=== PATIENT | female | born 1965 | race African-American/Black ===

== ENCOUNTER 2019-12-13 15:23 | Emergency (ER) | payer MEDICARE ==
[~2019-12-13] VITALS: Ht 165.1 cm; Wt 83.0 kg
--- OUTSIDE RECORDS SUMMARY | 2019-12-13 15:25 | XMS REPORT | Continuity of Care Document ---
Author Author [facility] t Organization 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 Role Phone UNKNOWN, REFFERING PCP Unavailable Vince SINGH, [facility] Attphys Jeremias Harris MD Attphys ALANA MOJICA M.D., Randi WARNER Attphys Unavailable ALANA MOJICA M.D., ALANA Admphyemerita monte Payers Payer Name Policy Type Policy Number Effective Date Expiration Date S ource UHC MEDICAREUHC DUAL COMPLETE [id number]-PresentHMO xxxxxxxxx 2018 00:00:00 Trenary Sabianism MEDICAIDMEDICAIDxxxxxxxxx2018-PresentMedicaid xxxxxxxxx 2018 00:00:00 Alvino Rosenbaum Problems Condition Name Condition Details Condition Category Status Onset Date Resolution Date Last Treatment Date Treating Clinician Comments Source Transient cerebral ischemia Transient cerebral ischemia Disease Active 2018-01-31 00:00:00 Alvino Salcedoist Allergies, Adverse Reactions, Alerts Allergy Name Allergy Type Status Severity Reaction(s) Onset Date Inacti ve Date Treating Clinician Comments Source Sulfa (Sulfonamide Antibiotics) Propensity to adverse reactions to drug Active 2018-01-31 00:00:00 Brendan brad Sabianism Sulfa (Sulfonamide Antibiotics) DA Active SC 2016-06-12 00 :00:00 [facility] aspirin DA Active SC 2016-06-12 00:00:00 [facility] Social History Social Habit Start Date Stop Date Quantity Comments Source Sex Assigned At Bruno Rosenbaum Exposure to SARS-CoV-2 (event) Not sure Alvino Rosenbaum Cigarettes smoked current (pack per day) - Reported 00:00:00 2018-12-14 00:00:00 Alvino Rosenbaum Alcohol intake 2018-12-14 00:00:00 2018-12-14 00:00:00 Current non-drinker of alcohol (finding) Alvino Rosenbaum Smoking Status Start Date Stop Date Source Current every day smoker 2018-12-14 00:00:00 Bruno Rosenbaum Medications Ordered Medication Name Filled Medication Name Start Date Stop Da te Current Medication? Ordering Clinician Indication Dosage Frequency Signature (SIG) Comments Components Source dicyclomine (BENTYL) 20 mg tablet 2018-12-15 00:00:00 2018 23:59:00 No 20mg Q.5D Take 1 tablet (2 0 mg total) by mouth 2 (two) times a day for 30 days. Alvino Rosenbaum Al hyd-Mg tr-alg ac-sod bicarb (GAVISCON) 80-14.2 mg tablet, chewable 2018-12-15 00:00:00 2019-01-14 23:59:00 No 2{tbl} Q.[id number] Chew 2 tablets 3 (three) times a day as needed (abdominal pain) for up to 30 days. Alvino Rosenbaum ondansetron ODT (ZOFRAN ODT) 4 MG disintegrating tablet 2018-12-15 00:00:00 2019-01-14 23:59:00 No 4mg Q8H Take 1 tablet (4 mg total) by mouth every 8 (eight) hours as needed for nausea for up to 30 days. Alvino Rosenbaum naproxen (NAPROSYN) 375 MG tablet 2018-12-15 00:00:00 2018 23:59:00 No 375mg Q.5D Take 1 tablet (3 75 mg total) by mouth 2 (two) times a day with meals for 30 days. Alivno Rosenbaum acetaminophen-codeine (TYLENOL WITH CODEINE #3) 300-30 mg pe r tablet 2018-12-15 00:00:00 2018-12-20 23:59:00 No 1{tbl} Q6H Take 1-2 tablets by mouth every 6 (six) hours as needed for moderate pain for up to 5 days. Alvino Rosenbaum folic acid (FOLVITE) 1 MG tablet 2018-02-01 19:38:38 Yes 1mg QD Take 1 mg by mouth daily. Alvino Rosenbaum gabapentin (NEURONTIN) 300 mg capsule 2018-02-01 19:38:38 Yes 300mg Q.5D Take 300 mg by mouth 2 (two) times a day. Alvino Rosenbaum hydroCHLOROthiazide (MICROZIDE) 12.5 mg capsule 2018-02-01 19:38 :38 Yes 12.5mg QD Take 12.5 mg by mouth every morning. Alvino Rosenbaum HYDROcodone-acetaminophen (NORCO) 10-325 mg per tablet 2018-02-01 19:38:38 Yes 1{tbl} Q6H Take 1 tablet b y mouth every 6 (six) hours as needed for moderate pain. Alvino Rosenbaum zolpidem (AMBIEN) 10 mg tablet 2018-02-01 19:38:38 Yes 10mg QD Take 10 mg by mouth nightly as needed for sleep. Alvino Rosenbaum omeprazole (PriLOSEC) 40 MG capsule 2018-02-01 19:38:38 Yes 40mg QD Take 40 mg by mouth daily. Alvino Rosenbaum riFAMpin (RIFADIN) 300 MG capsule 2018-02-01 19:38:38 Ye s 300mg Q.[id number] Take 300 mg by mouth 3 (three) times a week. Alvino Rosenbaum ethambutol (MYAMBUTOL) 400 MG tablet 2018-02-01 19:38:38 Yes 400mg Q.8466372868290011757T Take 400 mg by mouth 3 (three) times a week. Alvino Rosenbaum azithromycin (ZITHROMAX) 250 MG tablet 2018-02-01 19:38:38 Yes 250mg Q.5017000362341034697H Take 250 mg by mouth 3 (three) times a w [place]. Take 2 tablets the first day, then 1 tablet daily for 4 days. Alvino Salcedoist Vital Signs Vital Name Observation Time Observation Value Comments Source Systolic blood pressure 2018-12-15 03:47:00 141 mm[Hg] Alvino Rosenbaum Diastolic blood pressure 2018-12-15 03:47:00 82 mm[Hg] Alvnio Rosenbaum Heart rate 2018-12-15 03:47:00 73 /min Alvino Rosenbaum Respiratory rate 2018-12-15 03:47:00 16 /min Hubert gomez Sabianism Oxygen saturation in Arterial blood by Pulse oximetry 12-15 01:44:00 98 /min Alvino Rosenbaum Body temperature 2018-12-14 23:29:00 36.39 Yeni Hubert Rosenbaum Body height 2018-12-14 23:29:00 165.1 cm Alvino Rosenbaum Body weight 2018-12-14 23:29:00 83.915 kg Alvino Rosenbaum BMI 2018-12-14 23:29:00 30.79 kg/m2 Alvino Rosenbaum Procedures Procedure Date / Time Performed Performing Clinician Sourc e US GALLBLADDER 2018-12-15 02:43:[address] Jerem[address] ABDOMEN PELVIS W CONTRAST 2018-12-15 01:40:12 Jeremias Harris GRAM STAIN 2018-12-15 00:40:00 Jeremias Harris Meth odjason URINE CULTURE 2018-12-15 00:40:00 Jeremias Harris Meth rogers URINALYSIS SCREEN AND MICROSCOPY, WITH REFLEX TO CULTURE 201 03-14-09 00:32:00 Jeremias Harris HCG QUALITATIVE, URINE SCREEN 2018-12-15 00:32:00 Jeremias Harris XR CHEST 1 VW PORTABLE 2018-12-15 00:10:36 Jeremias Harris BASIC METABOLIC PANEL 2018-12-14 23:58:00 Jeremias Harris n Sabianism HC COMPLETE BLD COUNT W/AUTO DIFF 2018-12-14 23:58:00 Kingsley Harris TYPE AND SCREEN 2018-12-14 23:58:00 Jeremias Harris PROTHROMBIN TIME WITH INR 2018-12-14 23:58:00 Jeremias Harris PARTIAL THROMBOPLASTIN TIME (PTT) 2018-12-14 23:58:00 Kingsley Harris HEPATIC FUNCTION PANEL 2018-12-14 23:58:00 Harris, [place] on [facility] LIPASE LEVEL 2018-12-14 23:58:00 Jeremias Harris Alvino Meth odist TROPONIN 2018-12-14 23:58:00 Jeremias Harris Alvino Meth odist ESTIMATED GFR 2018-12-14 23:58:00 Jeremias Harris Alvino Meth odist Plan of Care Planned Activity Planned Date Details Comments Source Future Scheduled Test 2020-02-07 00:00:00 INFLUENZA VACCINE [code = INFLUENZA VACCINE] [facility] Future Scheduled Test 2014 00:00:00 BREAST CANCER SCRE ENING [code = BREAST CANCER SCREENING] [facility] Future Scheduled Test 2014 00:00:00 COLONOSCOPY SCREEN ING [code = COLONOSCOPY SCREENING] [facility] Future Scheduled Test 2014 00:00:00 SHINGLES VACCINES (#1) [code = SHINGLES VACCINES (#1)] [facility] Future Scheduled Test 1985 00:00:00 Screening for naga gnant neoplasm of cervix (procedure) [code = 893778526] [facility] Encounters Start Date/Time End Date/Time Encounter Type Admission Type Att[facility] Care Department Encounter ID Source 2019-11-28 10:06:52 2019-11-28 13:12:35 Office Visit Ovidio Clarke [facility] [id number] Results Test Description Test Time Test Comments Results Result Comments Source Urine culture 2018-12-16 08:42:45 Test Item Urine culture isolate (test code = 36626-7) Mixed jennifer <=10-3 col/ cc Specimen InformationSpecimen Source: UrineSpecimen Site: [facility] [id number] 08:42:45Gram stain resultFew WBC'sOccasional Gram variable rods Comment: Specimen InformationSpecimen Source: UrineSpecimen Site: Clean catch [facility] SabianismUS [id number] 02:46:33Hm Interface, Radiology Results 12/15/2018 2:49 AM CDTEXAMINATION: US GALLBLADDERCLINICAL HISTORY: ; eval choleCOMPARISON: None.IMPRESSION:No gallstones, sludge, wall thickening, or pericholecystic fluid.The common bile duct measures 0.39 cm, within normal limits.Main portal vein measures 1.2 cm and demonstrates expected hepatopedal flow.[facility]-[id number] MethodistType and tmgqdp9266-10-53 01:49:00* Test Item Value Reference Range Interpretation Comments ABO grouping (test code = 883-9) O Rh type (test code = 07098-2) POS Antibody screen (gel) (test code = 890-4) NEG Trenary MethodistCT Abdomen Pelvis W [id number] 01:44:43Hm Interface, Radiology Results - 12/15/2018 1:47 AM CDTCT ABDOMEN PELVIS W CONTRASTCLINICAL INDICATION: diffuse abd painTECHNIQUE: Multidetector CT of the abdomen and pelvis was performed following intravenous administration of iodinated contrast with multiplanar reformats.CT scans are performed using radia tion dose reduction techniques (iterative reconstruction and/or automated exposu re control). Technical factors are evaluated and adjusted to ensure appropriate moderation of exposure. Automated dose management technology is applied to adjus t radiation exposure while achieving a diagnostic quality image.COMPARISON: Non e. FINDINGS:Lung bases: Basilar subsegmental atelectasis/scarring.Liver: Any l.Gallbladder and biliary: Gallbladder is unremarkable. Common bile duct is not dilated. Pancreas: Normal.Spleen: Normal.Gastrointestinal: Sigmoid diverticul osis. Large and small bowel are normal in caliber. Appendix is visualized and ap pears normal.Adrenals: Normal. Kidneys and ureters: Few bilateral subcentimeter renal cysts/hypodensities are overall too small to characterize though are like ly benign. [No follow-up recommended unless clinically warranted.] No mass or h ydronephrosis.Urinary bladder: Normal.Lymph nodes: No enlarged lymph nodes in the abdomen or pelvis.Peritoneum: No ascites or free air.Vascular: Unremarkabl e.Reproductive organs: Uterus is absent. Unremarkable adnexae.Abdominal wall: Unremarkable.Bones: Status post right hip arthroplasty. Heterotopic ossificatio n about the right hip joint.IMPRESSION:1. Negative CT for acute pathology within the abdomen and pelvis. 2. Sigmoid diverticulosis without diverticulitis.[facility]-2U [id number] MethodistBasic metabolic obget6829-81-61 01:16:05* Test Item Value Reference Range Interpretation Comments Sodium (test code = 2951-2) 140 135- 150 mEq/L Potassium (test code = 2823-3) 3.9 3.5- 5.0 mEq/L Chloride (test code = 2075-0) 104 98- 112 mEq/L CO2 (test code = 2027-9) 24 mmol/L 24-31 Anion gap (test code = 04289-0) 12@ANIO 7- 15 mEq/L BUN (test code = 3094-0) 13 mg/dL 7-18 Creatinine (test code = 2160-0) 0.80 mg/dL 0.5-0.9 Glucose (test code = 2345-7) 107 mg/dL 65-100 H Calcium (test code = 37844-1) 9.7 mg/dL 8.3-10.2 Lab Interpretation (test code = 29628-6) Abnormal Trenary MethodistHepatic function fvanp9314-87-18 01:16:05* Test Item Value Reference Range Interpretation Comments Albumin (test code = 1751-7) 4.0 g/dL 3.5-5 Total bilirubin (test code = 1974-2) <0.3 0.2-1.2 Bilirubin direct (test code = 1967-7) <0.2 0-0.4 Alkaline phosphatase (test code = 6768-6) 105 U/L 0-104 H Protein (test code = 2885-2) 8.1 g/dL 6.3-8.3 ALT (test code = 1742-6) 9 U/L 5-50 AST (test code = 1920-8) 19 U/L 10-35 Lab Interpretation (test code = 21053-7) Abnormal Trenary MethodistLipase ftjhz9817-93-86 01:16:05* Test Item Value Reference Range Interpretation Comments Lipase (test code = 3040-3) 29 U/L 13-60 Trenary MethodistEstimated [id number] 01:16:05* Test Item Value Reference Range Interpretation Comments Estimated GFR (test code = 5488) >=90 mL/min/1.73 m2 Catergory Units InterpretationG1 >=90 Normal or highG2 60-89 Mildly tmbzloedzW9v 45-59 Mildly to moderately anmpxvvzaS1u 30-44 Moderately to severely decreasedG4 15-29 Severely decreasedG5 <15 Kidney failureThe eGFR was calculated using the Chronic Kidney Disease Epidemiology Collaboration (CKD-EPI) equation. Interpretation is based on recommendations of the National Kidney Foundation-Kidney Disease Outcomes Quality Initiative (NKF-KDOQI) published in 2014. Alvino RosenbaumEfiyzkvzhTxsxydzh6190-72-62 00:42:38* Test Item Value Reference Range Interpretation Comments Troponin (test code = 79456-6) <0.006 0-0.04 [facility] changed methodology effective: 11/12/2018 at 10:00 amThe new method has a 99th percentile cutoff of 0.040 ng/mL [facility] with platelet and jluzxoacgqmp7460-55-07 00:41:10* Test Item Value Reference Range Interpretation Comments WBC (test code = 99541-8) 9.4 4.2- 11.0 k/uL RBC (test code = 48566-0) 3.99 m/uL 4.04-5.86 L HGB (test code = 718-7) 13.3 g/dL 11.5-15.3 HCT (test code = 4544-3) 42.4 % 34-45 MCV (test code = 787-2) 106.3 fL 80-98 H MCH (test code = 785-6) 33.3 pg 27-34 MCHC (test code = 786-4) 31.4 g/dL 31.5-36.5 L RDW - SD (test code = 47767-8) 55.9 fL 37-51 H MPV (test code = 58993-3) 10.2 fL 7.4-10.4 Platelet count (test code = 19416-1) 310 150- 400 k/uL Nucleated RBC (test code = 96428-3) 0.00 /100 WBC Neutrophils (test code = 56785-7) 53.7 % 36-66 Lymphocytes (test code = 24574-1) 34.5 % 24-44 Monocytes (test code = 25367-5) 7.3 % 0-6 H Eosinophils (test code = 59900-2) 3.9 % 0-6 Basophils (test code = 04026-1) 0.4 % 0-1.2 Immature granulocytes (test code = 25442-1) 0.2 % 0-1 Lab Interpretation (test code = 13658-4) Abnormal Alvino MethodistUrinalysis screen and microscopy, with reflex to culture 2018-12-15 00:40:40* Test Item Value Reference Range Interpretation Comments Specimen site (test code = 6896184) Clean catch Color, UA (test code = 5778-6) Yellow Appearance, UA (test code = 5767-9) Clear Specific gravity, UA (test code = 5811-5) 1.012 1.001-1.035 pH, UA (test code = 5803-2) 6.0 5.0-8.5 Protein, UA (test code = 44761-6) Negative Negative Glucose, UA (test code = 86452-5) Negative Negative Ketones, UA (test code = 2514-8) Negative Negative Bilirubin, UA (test code = 5770-3) Negative Negative Blood, UA (test code = 5794-3) Small Negative A Nitrite, UA (test code = 5802-4) Negative Negative Urobilinogen, UA (test code = 89011-2) Negative <2.0 Leukocyte esterase, UA (test code = 5799-2) Trace Negative A Epithelial cells, UA (test code = 5787-7) Few /HPF WBC, UA (test code = 5821-4) 3 0- 5 /HPF RBC, UA (test code = 10490-6) 16 0- 5 /HPF H Bacteria, UA (test code = 61303-0) Trace None seen Yeast, UA (test code = 43824-6) None seen Yeast with pseudohyphae, UA (test code = 82265-9) None seen Lab Interpretation (test code = 02469-2) Abnormal Alvino MethodjasonhCG qualitative, urine eftash7466-16-12 00:39:02* Test Item Value Reference Range Interpretation Comments hCG qualitative, urine (test code = 2106-3) Negative Negative The manufacturers stated sensitivity of HcG test for serum is >/= 10 mIU/ml and urine is >/= 20mIU/ml. Alvino RosenbaumProthrombin time with [id number] 00:36:35* Test Item Value Reference Range Interpretation Comments Prothrombin time (test code = 5902-2) 12.9 11.5- 14.5 sec INR (test code = 35773-3) 1.00 Fo r patients on anticoagulant therapy, reference ranges below:Indication: INR ValueTreatment of Venous Thrombosis, 2.0-3.0pulmonary emboli, or prophylaxisof a venous thrombosis, or systemic emboli.High dose, high risk patients 3.0-4.5with mechanical valves.NOTE: INR values over 3.0 are sometimes associated withgastrointestinal hemorrhage, especially values over 4.0. Trenary MethodistPartial thromboplastin time, ofilvnudr3498-05-79 00:36:35* Test Item Value Reference Range Interpretation Comments PTT (test code = 3173-2) 36.6 23.0- 36.0 sec H P TT therapeutic range for unfractionated heparin is61.0-112.0 seconds which corresponds to Anti-Xa0.3-0.7 U/ml.Note: Change in Panic ValueThe PTT Panic Value is changing from 110 sec. to 100 sec. due to new instrumentation and reagents.Correlation studies have been performed to validate this result. Lab Interpretation (test code = 14144-4) Abnormal Trenary MethodistXR Chest 1 Vw Eqsldimm5708-33-49 00:15:54Hm Interface, Radiology Results - 12/15/2018 12:19 AM CDTEXAMINATION: XR CHEST 1 VW PORTABLECLINICAL HISTORY: SOBCOMPARISON: 01/31/2018 chest x-ray.IMPRESSION:The lungs are clear. No pleural effusion or pneumothorax. The cardiomediastinal silhouette is normal.No acute osseous abnormalities.[facility]-1NO3362C6IIwmetgw MethodistCT PELVIS W/O TEWA4593-01-00 07:09:[address] [address]JOYPNKHAIK IMAGING REPORTPatient Name: Fabiola TINOCO of Service: [id number]: 51 Sex: F Order #: [id number] [facility] 1965 [facility] Number: [id number] Record Number: [id number] Hospital Number: [id number] Physician: MELODIE BYRDOrdering Physician: KINDRA COSTA pelvis.History: Knee pain. Hip pain.Technique: Unenhanced CT images. This CT exam was performed using one ormore of the following dose reduction techniques: Automated exposurecontrol, adjustment of the MA and/or KV according to patient size or use ofiterative reconstruction technique.FindingsThere is right total hip arthroplasty. There is deviation laterally to theacetabular cup.There is dislocation.There is no fracture.There is SI joint fusion noted.Impression:Possible displaced plastic insert versus arthroplastic asymmetric wearingof the arthroplastic components. Correlate clini law.Electronically Signed By: Shemar Mccauley M.D., 09/02/2017 7:06 AMLegall y authenticated by RICARDO Pressley 2017-09-02 07:06:55KNEE 4 [id number] 16:00:00[place] [id number] IMAGING REPORTPatient Name: Fabiola TINOCO of Service: [id number]: 51 Sex: F Order #: [id number] Room: [facility]: 1965 X- Ray Number: [id number] Record Number: [id number] Hospital Number: [id number] Physician: Neetu BYRD Physician: Terry COSTA, right hip. Right knee.History: Pain.Technique: AP pelvis projection, extension right hip view, 4 views of theright knee.Findings:The pelvis appears intact. Several of the images show the femoral componentbe well seated within the acetabular component. The AP projection suggestsslight superior and lateral subluxation.The right knee joint is intact. There is no fracture or bony malalignmentseen.Impression:Questionable subluxation of the femoral and acetabular components at theright hip arthroplasty level. No fracture or bony alignment seen involvingthe pelvis, right hip, or right knee otherwise.Electronically Signed By: Shemar Mccauley M.D., 09/01/2017 3:57 PMLegally authenticated by RICARDO Pressley 2017-09-01 15:57:44HIP JOINT 2 [id number] 16:00:00[place] [id number] IMAGING REPORTPatient Name: Fabiola TINOCO of Service: [id number]: 51 Sex: F Order #: [id number] [facility] 1965 [facility] Number: [id number] Record Number: [id number] Hospital Number: [id number] Physician: Neetu BYRD Physician: Terry COSTA, right hip. Right knee.History: Pain.Technique: AP pelvis projection, extension right hip view, 4 views of theright knee.Findings:The pelvis appears intact. Several of the images show the femoral componentbe well seated within the acetabular component. The AP projection suggestsslight superior and lateral subluxation.The right knee joint is intact. There is no fracture or bony malalignmentseen.Impression:Questionable subluxation of the femoral and acetabular components at theright hip arthroplasty level. No fracture or bony alignment seen involvingthe pelvis, right hip, or right knee otherwise.Electronically Signed By: Shemar Mccauley M.D., 09/01/2017 3:57 PMLegally authenticated by RICARDO Pressley 2017-09-01 15:57:44RPR, Qual 2017-06-21 14:37:00* Test Item Value Reference Range Interpretation Comments RPR (test code = RPR) Non-Reactive Non-Reactive N Thyroid Stimulating Hormone (TSH)2017-06-21 02:28:00* Test Item Value Reference Range Interpretation Comments TSH (test code = TSH) 1.11 mIU/mL 0.270-4.200 N BHCG, Serum, Dtahcqtygas9597-50-65 02:03:00* Test Item Value Reference Range Interpretation Comments Preg Qual [Se] (test code = BSHCG) Negative Negative N [id number] 22:04:00* Test Item Value Reference Range Interpretation Comments Amphetamine (test code = AMPH) Negative Negative N For diagnostic purposes only, positive results should always be assessedin conjunctionwith the patient's medical history,clinical examination and otherfindings.To fulfill legal requirements, a more specific alternate chemical methodmust be used inorder to obtain a Confirmed analytical result. GC/MS is the preferred confirmatory method. Barbiturates (test code = ALFREDO) Negative Negative N Benzodiazepine (test code = TON) Negative Negative N Cocaine (test code = COCA) Negative Negative N Methadone (test code = MTHD) Negative Negative N Opiates (test code = OPIA) Negative Negative N PCP (test code = PCP) Negative Negative N Propoxyphene (test code = PROPOX) Negative Negative N THC (test code = THC) POSITIVE Negative A Alcohol, Urine (test code = ETOHU) <0.01 g/dL 0.00-0.01 N Urinalysis Mcslgohb5023-08-93 22:03:00* Test Item Value Reference Range Interpretation Comments Color (test code = COLOR) Yellow Yellow,Straw,Pl yellow N Clarity (test code = CLAR) Clear Clear N Specific Coffeen (test code = SPGR) 1.012 1.001-1.035 N pH (test code = PH) 6.5 5.0-9.0 N Ketone (test code = KET) Negative mg/dL Negative N Glucose (test code = GLUCUR) Negative mg/dL Negative N Protein (test code = PROT) Negative mg/dL Negative N Bilirubin (test code = BILI) Negative mg/dL Negative N Occult Blood (test code = UDOB) Mod to Large Negative A Urobilinogen (test code = UROB) 0.2 mg/dL 0.2-1.0 N Nitrite (test code = NIT) Negative Negative N Leuk Esterase (test code = LEUK) Small Negative A Micros Exam (test code = MEXAM) Indicated Epithelial Cells (test code = EPI) 50+ /LPF 0-30 A WBC, Urine (test code = UWBC) 11-20 /HPF 0-5 A RBC, Urine (test code = URBC) 11-20 /HPF 0-5 A Bacteria (test code = BACT) Many /HPF Yeast (test code = YEAST) Few /HPF Comprehensive Metabolic [id number] 21:38:00* Test Item Value Reference Range Interpretation Comments Sodium (test code = NA) 137 mmol/L 135-145 N Potassium (test code = K) 4.1 mmol/L 3.5-5.1 N Chloride (test code = CL) 98 mmol/L 98-105 N Carbon Dioxide (test code = CO2) 24 mmol/L 22-29 N Glucose (test code = GLU) 94 mg/dL 70-115 N Blood Urea Nitrogen (test code = BUN) 12 mg/dL 6-20 N Creatinine (test code = CREAT) 0.6 mg/dL 0.5-0.9 N Calcium (test code = CA) 9.5 mg/dL 8.3-10.5 N Prot Total (test code = TP) 7.9 g/dL 6.4-8.3 N Albumin (test code = ALB) 4.4 g/dL 3.5-5.2 N A/G Ratio (test code = AGRATIO) 1.3 Ratio Globulin (test code = GLOB) 3.5 2.9-3.1 H Bili Total (test code = TBIL) 0.3 mg/dL 0.1-0.9 N Alk Phos (test code = APHOS) 92 U/L 35-104 N AST (test code = AST) 15 U/L 1-32 N ALT (test code = ALT) 13 U/L 1-33 N BUN/Creatinine Ratio (test code = BCRATIO) 20.0 Anion Gap (test code = AGAP) 15 mmol/L 7-16 N Estimated GFR (test code = GFR) >60 mL/min/1.73m2 eGFR (estimated Glomerular Filtration Rate) is an estimated value,calculated from the patient's serum creatinine using the MDRD equation.It is NOT the patient's actual GFR. The eGFR provides a more clinicallyuseful measure of kidney disease than serum creatinine alone.This calculation takes sex and race into account, if the informationis provided. If the race is not provided, and the patient isAfrican-Djiboutian, multiply by 1.212. If sex is not provided, and thepatient is female, multiply by 0.742. Results for patients <18 years ofage have not been validated by the MDRD study and should be interpretedwith caution.eGFR Result Interpretation:eGFR > or = 60 is in the Normal RangeeGFR < 60 may mean kidney diseaseeGFR < 15 may mean kidney failureRanges recommended by the National Kidney Found ation,http://nkdep.nih.gov CBC with Jxdfdunjfpnm9854-29-13 20:21:00* Test Item Value Reference Range Interpretation Comments WBC (test code = WBC) 8.2 K/cumm 4.4-10.5 N RBC (test code = RBC) 4.07 M/cumm 3.75-5.20 N Hemoglobin (test code = HGB) 13.8 gm/dL 12.2-14.8 N Hematocrit (test code = HCT) 41.5 % 36.5-44.4 N MCV (test code = MCV) 102.1 fL 80-100 H MCH (test code = MCH) 34.0 pg 27.0-32.5 H MCHC (test code = MCHC) 33.3 g/dL 32.0-37.5 N RDW (test code = RDW) 12.6 % 11.5-14.5 N Platelet Count (test code = PLTCT) 339 K/cumm 140-440 N MPV (test code = MPV) 7.8 fL Diff Method (test code = DIFFM) Auto Neutrophil (test code = NEUT) 53.7 % 36-70 N Lymphocyte (test code = LYMPH) 39.3 % 12-44 N Monocyte (test code = MONO) 4.1 % 0-11 N Eosinophil (test code = EOS) 2.6 % 0-7 N Basophil (test code = BASO) 0.3 % 0-2 N Neutro Abs (test code = ANEUT) 4.4 K/cumm 1.6-7.4 N Lymph Abs (test code = ALYMPH) 3.2 K/cumm 0.5-4.6 N Merrick Abs (test code = AMONO) 0.3 K/cumm 0.0-1.2 N Eos Abs (test code = AEOS) 0.22 K/cumm 0.00-0.74 N Baso Abs (test code = ABASO) 0.0 K/cumm 0.00-0.21 N
--- OUTSIDE RECORDS SUMMARY | 2019-12-13 15:25 | XMS REPORT | Summary of Care ---
Author Author [facility] - Health Organization [facility] - Health Address Unknown Phone Unavailable Care Team Providers Care Genetic Physician Name Role Phone Ovidio Clarke MD PCP Reason for Visit * Reason Comments Referral/consult PT Encounter Details Care Team Description Date Type Department Sebastian Bunn MD [address] [place] [address] Referral/consult (PT) 01/29/2019 Telephone [facility] edic Surgery- [facility] [address] [facility] [address] [place] [address] Allergies Comments Active Allergy Reactions Severity Noted Date Aspirin Hives 03/21/2012 Sulfa (Sulfonamide Hives 11/29/2005 Antibiotics) documented as of this encounter (statuses as of 02/03/2019) Medications End Date Status Medication Sig Dispensed Refills Start Date Active hydroCHLOROthiazide 12.5 Take 1 30 capsule 11 0 mg capsuleIndications: capsule by 8 Ankylosing spondylitis, mouth daily. unspecified site of spine Active azithromycin 250 mg Take 250 mg 0 tablet by mouth. Active ethambutol 400 mg tablet Take 400 mg 0 by mouth. Active rifAMPin 300 mg capsule Take 300 mg 0 by mouth. Active VENTOLIN HFA 90 INHALE 2 5 mcg/actuation inhaler PUFFS Q 4 H 8 PRF WHEEZING OR BREATHLESSNES S Active foLIC acid 1 mg tablet One daily 90 tablet 3 8 Active miconazole (MICONAZOLE 7) Insert 1 45 g 0 2 % vaginal Applicator 9 creamIndications: Acute into vagina vaginitis at bedtime. Active methotrexate 2.5 mg TAKE 5 60 tablet 0 tabletIndications: TABLETS BY 9 Ankylosing spondylitis of MOUTH WEEKLY multiple sites in spine Active cyclobenzaprine 5 mg TAKE 1 TABLET 30 tablet 5 tabletIndications: BY MOUTH 9 Ankylosing spondylitis, THREE TIMES unspecified site of spine DAILY Active esomeprazole (NEXIUM) 40 TAKE ONE 90 capsule 3 0 mg capsuleIndications: CAPSULE BY 9 Gastroesophageal reflux MOUTH EVERY disease without MORNING WITH esophagitis, Nonerosive BREAKFAST nonspecific gastritis Active HYDROcodone-acetaminophen Take 1 tablet 120 tablet 0 10-325 mg by mouth 9 tabletIndications: every 6 (six) Ankylosing spondylitis, hours as unspecified site of needed for spine, Painful patella, Pain (scale unspecified laterality, 4-6). Primary localized osteoarthrosis, lower leg, unspecified laterality Active gabapentin 600 mg Take 1 tablet 90 tablet 6 tabletIndications: by mouth 3 9 Cervicalgia, Myofascial (three) times pain daily. Active VOLTAREN 1 % APPLY 100 g 0 gelIndications: Painful EXTERNALLY TO 9 patella, unspecified THE AFFECTED laterality, Primary AREA FOUR localized osteoarthrosis, TIMES DAILY lower leg, unspecified NEEDED FOR laterality, Muscle PAIN( SCALE weakness of lower 4-6) extremity, Effusion of lower leg joint, Knee crepitus, unspecified laterality, Patellofemoral instability of right knee with pain Active ondansetron 4 mg DISSOLVE ONE 0 disintegrating tablet TAB IN MOUTH 9 EVERY 8 HOURS NEEDED FOR NAUSEA FOR UP TO 30 DAYS Active omeprazole 40 mg capsule Take 40 mg by 0 mouth. Active ibuprofen (ADVIL) 200 mg Take 200 mg 0 tablet by mouth every 6 (six) hours as needed. Active proMETHazine 12.5 mg Take 1 tablet 12 tablet 0 tabletIndications: Flank by mouth 9 pain, Hematuria, every 4 unspecified type (four) hours as needed for Nausea and Vomiting (N/V). Active acetaminophen-codeine Take 1 tablet 15 tablet 0 300-30 mg by mouth 9 tabletIndications: Flank every 8 pain (eight) hours as needed for Pain (scale 7-10). Active paliperidone 9 mg 24 hr Take 1 tablet 30 tablet 5 tabletIndications: by mouth 9 Schizoaffective disorder, daily. depressive type Active zolpidem (AMBIEN) 10 mg Take 1 tablet 30 tablet 5 tabletIndications: by mouth at 9 Insomnia, unspecified bedtime as type needed for Insomnia. Active desvenlafaxine succinate Take 1 tablet 30 tablet 5 50 mg 24 hr by mouth 9 tabletIndications: daily. Insomnia, unspecified type Active Diclofenac Sodium APPLY TO THE 100 g 0 01 (VOLTAREN) 1 % AFFECTED AREA 9 gelIndications: Painful FOUR TIMES patella, unspecified DAILY laterality, Primary NEEDED FOR localized osteoarthrosis, PAIN lower leg, unspecified laterality, Muscle weakness of lower extremity, Effusion of lower leg joint, Knee crepitus, unspecified laterality, Patellofemoral instability of right knee with pain Status Hospital, Clinic, or Ordered Dose Route Frequency Start End Date Other Facility Date Administered Medication Active lactated ringers IV 1000 mL IV Infusion CONTINUOUS infusion 1,000 mL 19 documented as of this encounter (statuses as of 02/03/2019) Active Problems Problem Noted Date Cervical spondylosis with radiculopathy 01/01/2019 Overview: Added automatically from request for [employer] [id number] Mixed hyperlipidemia 08/13/2018 Overview: LDL 140 07/17/2018 Left tennis elbow 06/17/2018 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 Overview: R Avulsion fracture of lateral epicondyle of humerus 0 11/14/2017 Painful patella, unspecified laterality 11/05/2017 S/P revision of total hip 09/18/2017 Colon cancer screening 05/24/2017 Overview: Added automatically from request for [employer] [id number] Hematemesis with nausea 05/24/2017 Overview: Added automatically from request for [employer] [id number] Nausea and vomiting, intractability of vomiting not s pecified, unspecified 05/24/2017 vomiting type Overview: Added automatically from request for [employer] [id number] ANJELICA (obstructive sleep apnea) 05/10/2017 Obesity (BMI 30-39.9) 05/01/2017 Microhematuria 02/14/2017 Complex tear of medial meniscus of right knee as curr ent injury, initial 01/18/2017 encounter Overview: Added automatically from request for jimmy solorio [id number] Elevated MCV 07/25/2016 Overview: 103.4 07/22/2016 Muscle cramps at night 04/25/2016 Partial edentulism 04/10/2016 HLA B27 (HLA B27 positive) 02/29/2016 Gastroesophageal reflux disease without esophagitis 02/29/2016 Encounter for long-term (current) use of other high-r isk medications 02/29/2016 Disorder of respiratory system 11/12/2015 Mycobacterial infection 11/11/2015 Chronic pain 11/10/2015 Macrencephaly 11/08/2015 H. pylori infection 08/20/2015 Overview: EGD 06/22/2015 Mycobacterium avium complex 08/20/2015 Schizoaffective disorder, bipolar type 08/20/2015 Bronchitis 05/27/2015 Abnormal chest x-ray 05/27/2015 Overview: L upper lobe nodular opacitiy on chest xray at [facility] 05/22/2015 Hiatus hernia syndrome 04/09/2015 Overview: EGD 03/23/2015 [facility] screening mammogram 01/06/2015 Immunization deficiency 10/09/2014 Overview: She is NOT immune to varicella zoster. Right knee pain 09/30/2014 Right knee DJD 09/30/2014 Laceration of arm, right, initial encounter 04/13/20 14 S/P right knee arthroscopy 01/14/2014 Meniscus tear 01/12/2014 Overview: R Muscle weakness of lower extremity 11/25/2013 Effusion of lower leg joint 11/25/2013 Other stiff joint, of the lower leg 11/25/2013 Overview: ICD10 Diagnosis Term [employer] Knee crepitus 11/25/2013 Genu valgum, acquired 11/25/2013 Overview: ICD10 Diagnosis Term [employer] Patellofemoral misalignment with pain 11/25/2013 Primary localized osteoarthrosis, lower leg 11/26/19 14 Abnormal glucose 10/12/2013 Overview: Sugar is high at 113 10/10/2013 Knee pain, right 10/10/2013 GERD (gastroesophageal reflux disease) 07/30/2013 Furuncle of pubic region 07/14/2013 B12 deficiency 05/08/2013 Overview: B12 278 05/07/2013. Other abnormality of red blood cells 05/06/2013 Overview: MCV 101.5 05/05/2013 Abnormal weight gain 01/24/2013 Uveitis, anterior 12/20/2012 Posterior synechiae 12/20/2012 Schizoaffective disorder, depressive type 12/13/2012 Anterior uveitis-left eye 11/13/2012 Posterior synechiae, both eyes 11/13/2012 Blepharitis of both eyes 10/25/2012 Enthesopathy, spinal 09/27/2012 Chronic pain syndrome 09/27/2012 Hematuria 02/11/2012 Overview: POCT urinalysis blood 50. Therapeutic drug monitoring 12/26/2011 Cervical radiculopathy 2011 Screening for breast cancer 08/10/2011 Varicose veins of legs 11/16/2010 Headache 04/08/2010 Overview: ICD10 Diagnosis Term [employer] Nonerosive nonspecific gastritis 04/08/2010 Overview: EGD Dr. Lloyd Glossitis 02/23/2010 Tobacco use disorder 02/23/2010 Menorrhagia 05/19/2009 Vision blurred 05/19/2009 Acute upper respiratory infection 08/14/2008 Overview: ICD10 Diagnosis Term [employer] Acute pharyngitis 08/14/2008 Screening for malignant neoplasm of cervix 9 Overview: ICD10 Diagnosis Term [employer] Breast screening 07/16/2008 Overview: ICD10 Diagnosis Term [employer] Urinary tract infection, site not specified 04/29/20 08 Backache 06/02/2007 Overview: Lower back pain ICD10 Diagnosis Term [employer] Pain in joint 06/02/2007 Overview: ICD10 Diagnosis Term [employer] Cervicalgia 06/02/2007 Myalgia and myositis 06/02/2007 Overview: Bilateral trapezius pain ICD10 Diagnosis Term [employer] Absence of menstruation 04/25/2007 Anemia 03/25/2007 Overview: ICD10 Diagnosis Term [employer] Helicobacter pylori infection 06/11/2006 Overview: ICD10 Diagnosis Term [employer] Acute peptic ulcer 06/11/2006 Overview: ICD10 Diagnosis Term [employer] Abdominal pain 04/25/2006 Overview: ICD10 Diagnosis Term [employer] Ankylosing spondylitis 04/25/2006 Vaginitis and vulvovaginitis 04/25/2006 Overview: ICD10 Diagnosis Term [employer] Other, mixed, or unspecified nondependent drug abuse, continuous 11/30/2005 documented as of this encounter (statuses as of 02/03/2019) Resolved Problems Problem Noted Date Resolved Date Arm laceration, right, subsequent encounter 04/13/2014 04/13/2014 Syncope and collapse 02/27/2007 06/28/2014 Bipolar I disorder, most recent episode (or current) unspec ified 01/03/2007 01/23/2018 Overview: Dr. 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 11/30/2005 02/11/2018 Overview: ICD10 Diagnosis Term [employer] documented as of this encounter (statuses as of 02/03/2019) Immunizations Name Administration Dates Next Due Influenza Virus Vaccine 05/01/2018, 05/10/2012, 07/2010, 05/20/2010, 05/05/2008 Influenza Virus Vaccine 04/09/2013 (3+ yrs) Influenza Virus Vaccine 05/10/2017, 05/26/2015, 04/2015 (Deferred: Quad IM 3+ YRS Immunizations Up to Date - incorrect vaccine ordered; s/b prevnar 13) PPD (TB) 08/10/2014, 05/19/2008 Pneumococcal 13 08/18/2014 Conjugate, PCV13 (Prevnar 13) TDAP (ADACEL) VACCINE 08/24/2014 Td 04/01/2014 documented as of this encounter Social History Date Tobacco Use Types Packs/Day Years Used Current Every Day Smoker Cigarettes 0.5 10 Smokeless Tobacco: Never Used Comments: advsied to speak w/ MD re rx a nd programs Drinks/Week oz/Week Comments Alcohol Use occ Yes Sex Assigned at Date Recorded Not on file Industry Job Start Date Occupation Not on file Not on file Not on file Travel End Travel History Travel Start No recent travel history available. documented as of this encounter Last Filed Vital Signs Not on filedocumented in this encounter Plan of Treatment Care Team Description Date Type Specialty Ginny Oneal MD [address] [place] [phone] 02/03/2019 Office Visit Gastroenterology Frida Rose, DO [address] [place] [address] [phone] 02/05/2019 Appointment Radiology Jess Tovar MD [address] [place] [address] [phone] 02/11/2019 Office Visit Neurology Obed Omar Dominic, DO [address] [place] [address] [phone], Jennifer Adult Infusion Nurse 02/20/2019 Nurse Visit Infusion Therapy Rosario Joseph MD [address] [place] [phone] 03/04/2019 Office Visit Pulmonary Disease ObedOmar, DO [address] [place] [address] [phone] 03/05/2019 Office Visit Rheumatology Ann-Marie Johnson MD [address] [place] [address] [phone] 03/13/2019 Office Visit Family Medicine Jess Tovar MD [address] [place] [address] [phone] 03/13/2019 Office [place] [address] [place] [address] 03/19/2019 Office Visit Family Medicine Omar Clay, DO [address] [place] [address] [phone] 3, Jennifer Adult Infusion Nurse 04/17/2019 Nurse Visit Infusion Therapy Sebastian Doe [id number] [place] [address] [phone] 04/30/2019 Office Visit Pain Medicine Omar Clay, DO [address] [place] [address] [phone] 3Jennifer Adult Infusion Nurse 06/12/2019 Nurse Visit Infusion Therapy Health Maintenance Due Date Last Done Comments PNEUMOCOCCAL 0-64 YEARS 10/13/2014 08/18/2014 COMBINED SERIES (2 of 3 - PPSV23) Zoster Recombinant 2014 Vaccine (SHINGRIX) (1 of 2) INFLUENZA VACCINE 03/09/2019 05/01/2018, 017, 05/23/2016 (Previously completed), Additional history exists MAMMOGRAM 06/14/2019 06/14/2018, 016 PAP SMEAR 11/04/2019 11/03/2016 (Previou sly completed), 07/16/2008, 05/26/2005, Additional history exists DTaP,Tdap,and Td Vaccines 08/24/2024 08/24/2014, 04/01/2014 (2 - Td) COLONOSCOPY 06/22/2025 06/22/2015 HEPATITIS C (HCV) SCREEN Completed 11/17/2015, 1 07/28/2012, 10/11/2004, Additional history exists documented as of this encounter Goals Goal Patient Associated Recent Progress Patient-Stat Aut hor Goal Type Problems ed? Quit using tobacco Tobacco No Ashely, (cigarettes, smokeless, etc) Use Odalys Gauthier MA documented as of this encounter Implants Device Identifier Shelf Expiration Date Model / Serial / L ot Implanted Type Area Manufactur er 08/23/2022 [id number] / 0 / [id number] Bipolar Head, Donal Uhr Bipolar BIPOLAR Right: Hip [place] [id number] #[id number] - S0 head Implanted: Qty: 1 on 09/18/2017 by Sebastian Bunn MD at [facility] 07/07/2021 1023-12 / [id number] / [id number] Cancellous Cubes, Community Tissue BONE Right: Hip [facility] Services Freeze Dried 30 Cc Tissue #1023-12 - [id number] Services Implanted: Qty: 1 on 09/18/2017 by Sebastian Bunn MD at [facility] 03/08/20182017- / [id number] / [id number] Dbm Putty Maxxeus 10cc Cts #2017- BONE Right: Hip [facility] - [id number] Tissue Implanted: Qty: 1 on 09/18/2017 by Services Sebastian uBnn MD at [facility] 04/07/2022 [id number] / 0 / [id number] Delta Ceramic Femoral Head 28mm +5 Head Right: Hip Depuy 06/21 Taper Depuy Ref#[id number] Synthes Implanted: Qty: 1 on 09/18/2017 by Sebastian Bunn MD at [facility] 03/29/2022 [id number] / 0 / [id number] Insert, Donal Trident 0deg 44mm Liner Right: Hip Donal #[id number] Implanted: Qty: 1 on 09/18/2017 by Sebastian Bunn MD at [facility] 04/24/2022 5260-5-050 / 0 / [id number] Screw Osteolock [address] SCREW Right: Hip Donal Cancellous 50mm Donal Ref#[id number] Implanted: Qty: 2 on 09/18/2017 by Sebastian Bunn MD at [facility] 06/01/2022 5260-5-020 / 0 / [id number] Screw Ostelock 3.[address] SCREW Right: Hip [place] Cancellous 20mm Donal Ref#[id number] Implanted: Qty: 1 on 09/18/2017 by Sebastian Bunn MD at [facility] 06/01/2022 5260-5-016 / 0 / [id number] Screw Osteolock 3.[address] SCREW Right: Hip [place] Cancellous 18mm [place] Ref#[id number] Implanted: Qty: 1 on 09/18/2017 by Sebastian Bunn MD at [facility] 01/02/2022 [id number] / 0 / [id number] Shell, Donal Tritanium Revision Shell Right: Hip [place] Acetabular #[id number] - S0 Implanted: Qty: 1 on 09/18/2017 by Sebastian Bunn MD at [facility] documented as of this encounter Results Not on filedocumented in this encounter Insurance Type Payer Benefit Subscriber ID Effective Phone Address Plan / Dates Group Medicare Adv O [facility] [id number] 2018- MANAGED MEDICARE HEALTHCARE Present DUAL COMPLETE HMO [facility] [id number] 2018- [employer] H Present [address] [place] [address] documented as of this encounter Advance Directives Patient Swat Team Member Explanation Type Date Recorded 0 Advance Directives 08/08/2013 8:00 AM and Living Will Power of Casey Saw Operator 08/08/2013 8:00 AM
--- OUTSIDE RECORDS SUMMARY | 2019-12-13 15:25 | XMS REPORT | Summary of Care ---
Author Author [facility] - Health Organization [facility] - Health Address Unknown Phone Unavailable Care Team Providers Care Regional Liaison Name Role Phone Ovidio Clarke MD PCP Reason for Visit * Reason Comments Follow-up E.R. follow up left flank p ain * (ALEKSANDR) Referred By Contact Referred To Contact Status Reason Specialty Diagnoses / [place] [address] [place] [address] Closed Gastroenterology Diagnoses Hematemesis with nausea P rocedures CONSULT/REFERRAL GASTROENTEROLOGY Encounter Details Care Team Description Date Type Department Homero Ding [address] [place] [address] [id number] [place], [place] [id number] Ginny Oneal MD [address] [place] [address]. [place] [address] Special screening for malignant neoplasm s, colon (Primary Dx) 02/03/2019 Office Visit [facility]STRO[facility] -[facility] [address] [place] [address] Allergies Comments Active Allergy Reactions Severity Noted Date Aspirin Hives 03/21/2012 Sulfa (Sulfonamide Hives 11/29/2005 Antibiotics) documented as of this encounter (statuses as of 02/03/2019) Medications End Date Status Medication Sig Dispensed Refills Start Date Active hydroCHLOROthiazide 12.5 Take 1 30 capsule 11 0 5/09/201 mg capsuleIndications: capsule by 8 Ankylosing spondylitis, [...] instability of right knee with pain Active peg-electrolyte soln Take as 4000 mL 0 02/03 236-22.74-6.74 -5.86 gram directed 9 solutionIndications: before Special screening for colonoscopy malignant neoplasms, colon Status Hospital, Clinic, or Ordered Dose Route Frequency Start End Date Other Facility Date Administered Medication Active lactated ringers IV 1000 mL IV Infusion CONTINUOUS infusion 1,000 mL 19 documented as of this encounter (statuses as of 02/03/2019) Active Problems Problem Noted Date Cervical spondylosis with radiculopathy 01/01/2019 Overview: Added automatically from request for jimmy solorio [id number] Mixed hyperlipidemia 08/13/2018 Overview: LDL 140 07/17/2018 Left tennis elbow 06/17/2018 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 Overview: R Avulsion fracture of lateral epicondyle of humerus 0 11/14/2017 Painful patella, unspecified laterality 11/05/2017 S/P revision of total hip 09/18/2017 Colon cancer screening 05/24/2017 Overview: Added automatically from request for jimmy solorio [id number] Hematemesis with nausea 05/24/2017 Overview: Added automatically from request for jimmy solorio [id number] Nausea and vomiting, intractability of vomiting not s pecified, unspecified 05/24/2017 vomiting type Overview: Added automatically from request for jimmy solorio [id number] ANJELICA (obstructive sleep apnea) 05/10/2017 Obesity (BMI 30-39.9) 05/01/2017 Microhematuria 02/14/2017 Complex tear of medial meniscus of right knee as curr ent injury, initial 01/18/2017 encounter Overview: Added automatically from request for jimmy solorio [id number] Elevated MCV 07/25/2016 Overview: 103.4 07/22/2016 Muscle [...] lobe nodular opacitiy on chest xray at [facility] 05/22/2015 Hiatus hernia syndrome 04/09/2015 Overview: EGD 03/23/2015 [facility] screening mammogram 01/06/2015 Immunization deficiency 10/09/2014 Overview: [...] lower leg 11/25/2013 Overview: ICD10 Diagnosis 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 Utility Urinary tract infection, site not specified 04/29/20 08 Backache 06/02/2007 Overview: Lower back pain ICD10 Diagnosis Term 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 Pain in joint 06/02/2007 Overview: ICD10 Diagnosis Term 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 Cervicalgia 06/02/2007 Myalgia and myositis 06/02/2007 Overview: Bilateral trapezius pain ICD10 Diagnosis Term 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 Absence of menstruation 04/25/2007 Anemia 03/25/2007 Overview: ICD10 Diagnosis Term 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 Helicobacter pylori infection 06/11/2006 Overview: ICD10 Diagnosis Term 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 Acute peptic ulcer 06/11/2006 Overview: ICD10 Diagnosis Term 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 Utility Abdominal pain 04/25/2006 Overview: ICD10 Diagnosis Term 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 Utility Ankylosing spondylitis 04/25/2006 Vaginitis and vulvovaginitis 04/25/2006 Overview: ICD10 Diagnosis Term 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 Utility Other, mixed, or unspecified nondependent drug [...] eatures 11/30/2005 02/11/2018 Overview: ICD10 Diagnosis Term 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 Utility documented as of this encounter (statuses [...] of this encounter Last Filed Vital Signs Reading Time Taken Comments Vital Sign 143/80 02/03/2019 2:12 PM CDT Blood Pressure 90 02/03/2019 2:12 PM CDT Pulse 36 C (96.8 F) 02/03/2019 2:12 PM CDT Temperature - - Respiratory Rate 96% 02/03/2019 2:12 PM CDT Oxygen Saturation - - Inhaled Oxygen Concentration 83.9 kg (185 lb) 02/03/2019 2:12 PM CDT Weight 165.1 cm (5' 5") 02/03/2019 2:12 PM CDT Height 30.79 02/03/2019 2:12 PM CDT Body Mass Index documented in this encounter Progress Notes * Ginny Oneal MD - 02/03/2019 2:00 PM CDT Gastroenterology & Hepatology Clinic Note Date: 02/02/2019 CC/Referral reason: hematemesis Referred [place]: [place] [address] [place] [address] HPI: Juan Tinoco is a 53 year old female with ANJELICA, ankylosing spondylitis, a nd bipolar disorder who presents for evaluation of hematemesis. Of note, patient last seen in GI clinic in 2016 with the complaint of hematemesis "all the time" but had stable Hb. Nonetheless, an EGD was ordered, as was a colonoscopy for co prieto cancer screening but neither were performed for unclear reasons. She has not been seen in clinic since. She had had an EGD and colon in 06/2015 with a normal EGD exam but biopsies positive for H pylori (s/p treatment), but no documented test of cure and colonoscopy had poor prep and she was supposed to reschedule w ith 2 day bowel prep. Her recent labs on 01/20 all within normal limits with a Hb of 14.6 (baseline 12-14) and had a CT A/P that was unremarkable. She takes norc o, gabapentin, and cyclobenzaprine. Today she states that she continues to have bright red emesis but only about estrella ry 1-2 weeks. She reports it as about a tablespoon of BRB. She reports having br own BMs. She denies NSAID use but does take once daily Nexium. She also has left flank pain. She had E faecalis UTI 12/2018 which was treated with ampicillin by PCP. She is seeing urology as well for microhematuria. No blood in stool. Denies family hx of CRC. No anticoagulation. Has had a hysterectomy. PMHx: Past Medical History: Diagnosis Date Abdominal pain Abnormal glucose 10/12/2013 Absence of menstruation 04/25/2007 Acute peptic ulcer, unspecified site, without mention of hemorrhage and perf oration Acute peptic ulcer, unspecified site, without mention of hemorrhage, perfora tion, or obstruction Acute pharyngitis 08/14/2008 Acute upper respiratory infections of unspecified site 08/14/2008 Anemia, unspecified 03/25/2007 Ankylosing spondylitis diagnosed around 2003 confirmed by x rays showing fusion of the SI joints, marginal syndesmophytes Anterior uveitis-left eye 11/13/2012 Arm laceration, right, subsequent encounter 04/13/2014 Avulsion fracture of lateral epicondyle of humerus 11/14/2017 B12 deficiency 05/08/2013 B12 278 05/07/2013. Bipolar I disorder, most recent episode (or current) unspecified 01/03/2007 Dr. dillon Blepharitis of both eyes 10/25/2012 Breast screening, unspecified 07/16/2008 Bronchitis 05/27/2015 Cervical radiculopathy 2011 Elevated MCV 07/25/2016 103.4 07/22/2016 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 R Glossitis 02/23/2010 H. pylori infection 08/20/2015 EGD 06/22/2015 Headache(784.0) 04/08/2010 Helicobacter pylori (H. pylori) Hematuria 02/11/2012 Hiatus hernia syndrome 04/09/2015 EGD 03/23/2015 [facility] Immunization deficiency 10/09/2014 She is NOT immune to varicella zoster. Knee pain, right 10/10/2013 Laceration of arm, right, initial encounter 04/13/2014 MAC complex 11/08/2015 Meniscus tear 01/12/2014 R Menorrhagia 05/19/2009 Microhematuria 02/14/2017 Mixed hyperlipidemia 08/13/2018 LDL 140 07/17/2018 Mycobacterium avium complex 08/20/2015 Mycobacterium avium infection 08/20/2015 Nonerosive nonspecific gastritis 04/08/[address] Lloyd ANJELICA (obstructive sleep apnea) Other abnormality of red blood cells 05/06/2013 MCV 101.5 05/05/2013 Other screening mammogram 01/06/2015 Plantar fascial fibromatosis 04/17/2008 Bilat RECURR DEPR PSYCH-PSYCHOTIC 11/30/2005 Schizoaffective disorder, bipolar type 08/20/2015 Screening for breast cancer 08/10/2011 Screening for malignant neoplasm of the cervix 07/16/2008 Special screening for osteoporosis 07/16/2008 Syncope and collapse 02/27/2007 Tobacco use disorder 02/23/2010 Urinary tract infection, site not specified 04/29/2008 Uveitis, anterior 12/20/2012 Vaginitis and vulvovaginitis, unspecified Varicose veins of legs 11/16/2010 Vision blurred 05/19/2009 PSurgical Hx: Past Surgical History: Procedure Laterality Date ABDOMINAL HYSTERECTOMY 11/15/2009 Dr. Ro ARTHROSCOPIC FOREIGN BODY REMOVAL (SHX) Right 01/06/2014 Surgeon: Girish Fountain MD; [facility] ARTHROSCOPIC MENISCAL REPAIR Right 01/06/2014 Surgeon: Girish Fountain MD; Location: [facility] OR LOCATION CERVICAL EPIDURAL STEROID INJECTION 03/26/2012 Surgeon: Maged Franklin MD PHD; Location: [facility] OR LOCATION CERVICAL EPIDURAL STEROID INJECTION N/A 01/23/2019 Surgeon: Sebastian Doe; Location: [facility] COLONOSCOPY N/A 06/22/2015 Surgeon: Arian To MD; Location: [facility] OR LOCATION EGD (ENDO) 03/23/2015 [facility] ESOPHAGOGASTRODUODENOSCOPY 04/13 ulcers ESOPHAGOGASTRODUODENOSCOPY 06/15 ESOPHAGOGASTRODUODENOSCOPY 10/07/2009 mild nonerosive gastritis ESOPHAGOGASTRODUODENOSCOPY N/A 06/22/2015 Surgeon: Arian To MD; Location: [facility] OR LOCATION FLEXIBLE BRONCHOSCOPY 05/24/2015 [facility] HIP HEMIARTHROPLASTY 2001 Right KNEE ARTHROSCOPY Right 01/06/2014 Surgeon: Girish Fountain MD; Location: [facility] DC ARTHRS KNE SURG W/MENISCECTOMY MED/LAT W/SHVG 01/06/2014 DC KNEE SCOPE,REMV LOOSE BODY 01/06/2014 TOTAL HIP ARTHROPLASTY REVISION Right 09/18/2017 Surgeon: Sebastian Bunn MD; Location: [facility] TUBAL LIGATION 1988 Family Hx: Family History Problem Relation Age of Onset Diabetes Mother Breast Cancer NoFHx Colon Cancer NoFHx Ovarian Cancer NoFHx Uterine Cancer NoFHx Cancer NoFHx Heart NoFHx Social Hx: Social History Socioeconomic History Marital status: Single Spouse name: Not on file Number of children: Not on file Years of education: Not on file Highest education level: Not on file Occupational History Not on file Social Needs Financial resource strain: Not on file Food insecurity: Worry: Not on file Inability: Not on file Transportation needs: Medical: Not on file Non-medical: Not on file Tobacco Use Smoking status: Current Every Day Smoker Packs/day: 0.50 Years: 10.00 Pack years: 5.00 Types: Cigarettes Smokeless tobacco: Never Used Tobacco comment: advsied to speak w/ MD re rx and programs Substance and Sexual Activity Alcohol use: Yes Comment: occ Drug use: No Sexual activity: Never Lifestyle Physical activity: Days per week: Not on file Minutes per session: Not on file Stress: Not on file Relationships Social connections: Talks on phone: Not on file Gets together: Not on file Attends cheondoism service: Not on file Active member of club or organization: Not on file Attends meetings of clubs or organizations: Not on file Relationship status: Not on file Intimate partner violence: Fear of current or ex partner: Not on file Emotionally abused: Not on file Physically abused: Not on file Forced sexual activity: Not on file Other Topics Concern Not on file Social History Narrative Not on file Medications: Current Outpatient Medications Medication Sig Dispense Refill peg-electrolyte soln 236-22.74-6.74 -5.86 gram solution Take as directed bef ore colonoscopy 4000 mL 0 Diclofenac Sodium (VOLTAREN) 1 % gel APPLY TO THE AFFECTED AREA FOUR TIMES D AILY NEEDED FOR PAIN 100 g 0 desvenlafaxine succinate 50 mg 24 hr tablet Take 1 tablet by mouth daily. 30 tablet 5 [START ON 02/17/2019] paliperidone 9 mg 24 hr tablet Take 1 tablet by mouth d aily. 30 tablet 5 [START ON 02/17/2019] zolpidem (AMBIEN) 10 mg tablet Take 1 tablet by mouth a t bedtime as needed for Insomnia. 30 tablet 5 acetaminophen-codeine 300-30 mg tablet Take 1 tablet by mouth every 8 (eight ) hours as needed for Pain (scale 7-10). 15 tablet 0 proMETHazine 12.5 mg tablet Take 1 tablet by mouth every 4 (four) hours as n eeded for Nausea and Vomiting (N/V). 12 tablet 0 ibuprofen (ADVIL) 200 mg tablet Take 200 mg by mouth every 6 (six) hours as needed. omeprazole 40 mg capsule Take 40 mg by mouth. ondansetron 4 mg disintegrating tablet DISSOLVE ONE TAB IN MOUTH EVERY 8 MACKENZIE RS NEEDED FOR NAUSEA FOR UP TO 30 DAYS 0 VOLTAREN 1 % gel APPLY EXTERNALLY TO THE AFFECTED AREA FOUR TIMES DAILY N EEDED FOR PAIN( SCALE 4-6) 100 g 0 gabapentin 600 mg tablet Take 1 tablet by mouth 3 (three) times daily. 90 ta blet 6 cyclobenzaprine 5 mg tablet TAKE 1 TABLET BY MOUTH THREE TIMES DAILY 30 tabl et 5 esomeprazole (NEXIUM) 40 mg capsule TAKE ONE CAPSULE BY MOUTH EVERY MORNING WITH BREAKFAST 90 capsule 3 HYDROcodone-acetaminophen 10-325 mg tablet Take 1 tablet by mouth every 6 (s ix) hours as needed for Pain (scale 4-6). 120 tablet 0 methotrexate 2.5 mg tablet TAKE 5 TABLETS BY MOUTH WEEKLY 60 tablet 0 miconazole (MICONAZOLE 7) 2 % vaginal cream Insert 1 Applicator into vagina at bedtime. 45 g 0 foLIC acid 1 mg tablet One daily 90 tablet 3 azithromycin 250 mg tablet Take 250 mg by mouth. ethambutol 400 mg tablet Take 400 mg by mouth. rifAMPin 300 mg capsule Take 300 mg by mouth. VENTOLIN HFA 90 mcg/actuation inhaler INHALE 2 PUFFS Q 4 H PRF WHEEZING OR B REATHLESSNESS 5 hydroCHLOROthiazide 12.5 mg capsule Take 1 capsule by mouth daily. 30 capsul e 11 Current Facility-Administered Medications Medication Dose Route Frequency Last Rate Last Dose lactated ringers IV infusion 1,000 mL 1,000 mL IV Infusion CONTINUOUS ROS: General: (-) fever, (-) chills, (-) weight change, (-) dizziness, (-) lightheade dness, (-) decreased appetite, (-) fatigue Skin: (-) rash, (-) lesion HEENT: (-) headache, (-) nasal discharge, (-) sore throat, (-) vision changes, Neck: (-) pain Heme: (-) bleeding disorder Resp: (-) cough, (-) shortness of breath Cardio: (-) chest pain, (-) palpitations GI: (-) abdominal pain, (-) hematemesis, (-) melena, (-) hematochezia, (-) nause a, (-) vomiting : (-) dysuria, (-) hematuria Endo: (-) polyuria (-) polydipsia Neuro: (-) numbness, (-) tingling PHILIP: (-) muscle pain, (-) joint pain Psych: (-) suicidal ideation , (-) homicidal ideation PE: BP (!) 143/80 (BP Location: Left arm, Patient Position: Sitting, BP CUFF SIZE: A dult Large) | Pulse 90 | Temp 36 C (96.8 F) (Oral) | Ht 5' 5" (1.651 m) | Wt 185 lb (83.9 kg) | LMP 11/08/2009 | SpO2 96% | BMI 30.79 kg/m General appearance: appears to be in no acute distress, conversant and cooperati ve Eyes: anicteric sclerae, moist conjunctivae HENT: atraumatic; oropharynx clear with moist mucous membranes Lungs: clear to auscultation bilaterally, no wheeze, rales, or rhonchi, with nor mal respiratory effort and no intercostal retractions CV: regular rate and rhythm, no murmurs, rubs, or gallop; no lower extremity dona ma GI: soft, non-tender to palpation; negative Estrada's sign; no masses appreciated on light or deep palpation; non-distended; no appreciable hepatosplenomegaly; no ascites MSK: no clubbing or cyanosis Skin: anicteric, no rashes Psych: labile mood and affect, alert and oriented to person, place, time, and si tuation Labs / Radiology: reviewed 01/20/[address] Abdomen Pelvis Wo Contrast Result Date: 01/20/2019 1. No evidence of nephrolithiasis or hydronephrosis. 2. Bone findings suggest ankylosing spondylitis. Endoscopy: EGD 06/2019: 1. Normal esophagus 2. Gastritis in the body and the antrum of the stomach; - Multiple biopsies for H. pylori were taken. 3. Normal duodenum 4. Normal duodenal folds STOMACH, BIOPSY: - SEVERE CHRONIC ACTIVE GASTRITIS - NO INTESTINAL METAPLASIA IDENTIFIED - IMMUNOSTAIN FOR H. PYLORI IS POSITIVE Colonoscopy 06/2019: 1. Poor prep (Retained stool) throughout the colon 2. Unable to examine the entire colon due to limitations as documented in the pr ocedure. Assessment / Plan: Juan Tinoco is a 53 year old female with ANJELICA, ankylosing spondylitis, and bi polar disorder who presents for evaluation of hematemesis. Very unlikely that anne hairston is having clinically relevant hematemesis given her stable Hb. Nonetheless , will order EGD in addition to colonoscopy that needs to be performed for avera ge risk CRC screening in order to ensure no UGI pathology causing scant hemateme sis. #?Hematemesis --will order EGD --continue daily Nexium --continue to avoid NSAIDs #Average risk colon cancer screening --will order colonoscopy with 2 day prep Patient seen and discussed with faculty, Dr. Ding Follow-up: 4 months Ginny Oneal MD Gastroenterology and Hepatology Fellow Pager: [phone] PGY-5 documented in this encounter Plan of Treatment Care Team Description Date Type Specialty Frida Rose DO [address] [place], [place] [address] 02/05/2019 Appointment Radiology Jess Tovar MD [address] [place] [phone] 02/11/2019 Office Visit Neurology Omar Clay DO [address] [place] [address] [phone] 3Jennifer Adult Infusion Nurse 02/20/2019 Nurse Visit Infusion Therapy Rosario Joseph MD [address] [place] [phone] [phone] 03/04/2019 Office Visit Pulmonary Disease Omar Clay, DO [address] [place] [address] [phone] 03/05/2019 Office Visit Rheumatology Ann-Marie Johnson MD [address] [place] [address] [phone] 03/13/2019 Office Visit Family Medicine Jess Tovar MD [address] [place] [address] [phone] 03/13/2019 Office [place] [address] [place] [phone] 03/19/2019 Office Visit Family Medicine Omar Clay, DO [address] [place] [address] [phone] 3, Jennifer Adult Infusion Nurse 04/17/2019 Nurse Visit Infusion Therapy Sebastian Doe [address] [place] [address] [phone] 04/30/2019 Office Visit Pain Medicine Omar Clay, DO [address] [place] [address] [phone] 3, Jennifer Adult Infusion Nurse 06/12/2019 Nurse Visit Infusion [...] Head, Donal Uhr Bipolar BIPOLAR Right: Hip Donal [id number] - S0 head Implanted: Qty: 1 on 09/18/2017 by Sebastian Bunn MD at [facility] 07/07/2021 1023-12 / [id number] / [id number] Cancellous Cubes, Community Tissue BONE Right: Hip [facility] Freeze Dried 30 Cc Tissue #1023-12 - [id number] Services Implanted: Qty: 1 on 09/18/2017 by Sebastian Bunn MD at [facility] 03/08/2018 2018-40 / [id number] / [id number] Dbm Putty Maxxeus 10cc Cts #2018-40 BONE Right: Hip [facility] - [id number] Tissue Implanted: Qty: 1 on 09/18/2017 by Services Sebastian Bunn MD at [facility] 04/07/2022 [id number] / 0 / [id number] Delta Ceramic Femoral Head 28mm +5 Head Right: Hip Depuy 06/21 Taper Depuy Ref#[id number] Synthes Implanted: Qty: 1 on 09/18/2017 by Sebastian Bunn MD at [facility] 03/29/2022 [id number] / 0 / [id number] Insert, Donal Trident 0deg 44mm Liner Right: Hip Laurel #[id number] Implanted: Qty: 1 on 09/18/2017 by Sebastian Bunn MD at [facility] 04/24/2022 5260-5-050 / 0 / [id number] Screw Osteolock 3.[address] SCREW Right: Hip Laurel Cancellous 50mm Donal Ref#[id number] Implanted: Qty: 2 on 09/18/2017 by Sebastian Bunn MD at [facility] 06/01/2022 5260-5-020 / 0 / [id number] Screw Ostelock 3.[address] SCREW Right: Hip Donal Cancellous 20mm Donal Ref#[id number] Implanted: Qty: 1 on 09/18/2017 by Sebastian Bunn MD at [facility] 06/01/2022 5260-5-016 / 0 / [id number] Screw Osteolock 3.[address] SCREW Right: Hip Donal Cancellous 18mm Laurel Ref#[id number] Implanted: Qty: 1 on 09/18/2017 by Sebastian Bunn MD at [facility] 01/02/2022 [id number] / 0 / [id number] Shell, Donal Tritanium Revision Shell Right: Hip Laurel Acetabular #[id number] - [id number] Implanted: Qty: 1 on 09/18/2017 by Sebastian Bunn MD at [facility] documented as of this encounter Results Not on filedocumented in this encounter Visit Diagnoses Diagnosis Special screening for malignant neoplas ms, colon - Primary documented in this encounter Insurance Type Payer Benefit Subscriber ID Effective Phone Address Plan / Dates Group Medicare Adv O [facility] [id number] 2018- MANAGED MEDICARE HEALTHCARE Present DUAL COMPLETE HMO ([place]) [place] [address] documented as of this encounter 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
--- OUTSIDE RECORDS SUMMARY | 2019-12-13 15:25 | XMS REPORT | Summary of Care ---
Author Author [facility] Organization [facility] Address Unknown Phone Unavailable Care Team Providers Care Shank Archer Name Role Phone Ovidio Clarke MD PCP Reason for Visit * Reason Comments Follow-up E.R. follow up left flank p ain * (ALEKSANDR) Referred By Contact Referred To Contact Status Reason Specialty Diagnoses / [place] [address] [place] [address] Closed Gastroenterology Diagnoses Hematemesis with nausea P rocedures CONSULT/REFERRAL GASTROENTEROLOGY Encounter Details Care Team Description Date Type Department Homero [facility]ing [address] [place] [address] [id number] [place], [place] [id number] Ginny Oneal MD [address] [place] [address]. [place] [address] Special screening for malignant neoplasm s, colon (Primary Dx) 02/03/2019 Office Visit [facility] -[facility] [address] [facility] [address] [place] [address] Allergies Comments Active Allergy Reactions [...] Added automatically from request for jimmy solorio [id number] Mixed hyperlipidemia 08/13/2018 Overview: LDL 140 07/17/2018 Left tennis elbow 06/17/2018 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 Overview: R Avulsion fracture of lateral epicondyle of humerus 0 11/14/2017 Painful patella, unspecified laterality 11/05/2017 S/P revision of total hip 09/18/2017 Colon cancer screening 05/24/2017 Overview: Added automatically from request for jimmy solorio [id number] Hematemesis with nausea 05/24/2017 Overview: Added automatically from request for jimmy solorio [id number] Nausea and vomiting, intractability of vomiting not s pecified, unspecified 05/24/2017 vomiting type Overview: Added automatically from request for jimmy solorio [id number] ANJELICA (obstructive sleep apnea) 05/10/2017 Obesity (BMI 30-39.9) 05/01/2017 Microhematuria 02/14/2017 Complex tear of medial meniscus of right knee as curr ent injury, initial 01/18/2017 encounter Overview: Added automatically from request for jimmy solorio [id number] Elevated MCV 07/25/2016 Overview: 103.4 07/22/2016 Muscle [...] lobe nodular opacitiy on chest xray at [facility] 05/22/2015 Hiatus hernia syndrome 04/09/2015 Overview: EGD 03/23/2015 [facility] screening mammogram 01/06/2015 Immunization deficiency 10/09/2014 Overview: [...] lower leg 11/25/2013 Overview: ICD10 Diagnosis Term Operational Intelligence Analyst Utility Knee crepitus 11/25/2013 Genu valgum, acquired 11/25/2013 Overview: ICD10 Diagnosis Term Operational Intelligence Analyst Utility Patellofemoral misalignment with pain 11/25/2013 Primary [...] 11/16/2010 Headache 04/08/2010 Overview: ICD10 Diagnosis Term Operational Intelligence Analyst Utility Nonerosive nonspecific gastritis 04/08/2010 Overview: EGD Dr. Lloyd Glossitis 02/23/2010 Tobacco use disorder 02/23/2010 Menorrhagia 05/19/2009 Vision blurred 05/19/2009 Acute upper respiratory infection 08/14/2008 Overview: ICD10 Diagnosis Term Operational Intelligence Analyst Utility Acute pharyngitis 08/14/2008 Screening for malignant neoplasm of cervix Overview: ICD10 Diagnosis Term Operational Intelligence Analyst Utility Breast screening 07/16/2008 Overview: ICD10 Diagnosis Term Operational Intelligence Analyst Utility Urinary tract infection, site not specified 04/29/20 08 Backache 06/02/2007 Overview: Lower back pain ICD10 Diagnosis Term Operational Intelligence Analyst Utility Pain in joint 06/02/2007 Overview: ICD10 Diagnosis Term Operational Intelligence Analyst Utility Cervicalgia 06/02/2007 Myalgia and myositis 06/02/2007 Overview: Bilateral trapezius pain ICD10 Diagnosis Term Operational Intelligence Analyst Utility Absence of menstruation 04/25/2007 Anemia 03/25/2007 Overview: ICD10 Diagnosis Term Operational Intelligence Analyst Utility Helicobacter pylori infection 06/11/2006 Overview: ICD10 Diagnosis Term Operational Intelligence Analyst Utility Acute peptic ulcer 06/11/2006 Overview: ICD10 Diagnosis Term Operational Intelligence Analyst Utility Abdominal pain 04/25/2006 Overview: ICD10 Diagnosis Term Operational Intelligence Analyst Utility Ankylosing spondylitis 04/25/2006 Vaginitis and vulvovaginitis 04/25/2006 Overview: ICD10 Diagnosis Term Operational Intelligence Analyst Utility Other, mixed, or unspecified nondependent drug [...] eatures 11/30/2005 02/11/2018 Overview: ICD10 Diagnosis Term Operational Intelligence Analyst Utility documented as of this encounter (statuses [...] hematemesis [place]: [place] [address] [place] [address] HPI: Juan Tinoco is a 53 year [...] 02/11/2012 Hiatus hernia syndrome 04/09/2015 EGD 03/23/2015 [facility] Immunization deficiency 10/09/2014 She is NOT immune [...] Surgeon: Maged Franklin MD PHD; Location: [facility] OR LOCATION CERVICAL EPIDURAL STEROID INJECTION N/A 01/23/2019 Surgeon: Sebastian Doe; Location: [facility] COLONOSCOPY N/A 06/22/2015 Surgeon: Arian To MD; Location: [facility] EGD (ENDO) 03/23/2015 [facility] ESOPHAGOGASTRODUODENOSCOPY 04/13 ulcers ESOPHAGOGASTRODUODENOSCOPY 06/15 ESOPHAGOGASTRODUODENOSCOPY 10/07/2009 mild nonerosive gastritis ESOPHAGOGASTRODUODENOSCOPY N/A 06/22/2015 Surgeon: Arian To MD; Location: [facility] OR LOCATION FLEXIBLE BRONCHOSCOPY 05/24/2015 [facility] HIP HEMIARTHROPLASTY 2001 Right KNEE ARTHROSCOPY Right 01/06/2014 Surgeon: Girish Fountain MD; Location: [facility] KNE SURG W/MENISCECTOMY MED/LAT W/SHVG 01/06/2014 DE KNEE SCOPE,REMV LOOSE BODY 01/06/2014 TOTAL HIP ARTHROPLASTY REVISION Right 09/18/2017 Surgeon: Sebastian Bunn MD; Location: [facility] OR [facility] TUBAL LIGATION 1988 Family Hx: Family History [...] file Gets together: Not on file Attends druze service: Not on file Active member of [...] Oneal MD Gastroenterology and Hepatology Fellow Pager: [phone] PGY-5 documented in this encounter Plan of Treatment Care Team Description Date Type Specialty Frida Rose DO [address] [place], [place] [id number] 02/05/2019 Appointment Radiology Jess Tovar MD [address] [place] [address] 02/11/2019 Office Visit Neurology Omar Clay DO [address] [place] [address] [phone] 3Jennifer Adult Infusion Nurse 02/20/2019 Nurse Visit Infusion Therapy Rosario Joseph MD [address] [place] [address] [phone] 03/04/2019 Office Visit Pulmonary Disease Omar Clay, DO [address] [place] [address] [phone] 03/05/2019 Office Visit Rheumatology Ann-Marie Johnson MD [address] [place] [address] [phone] 03/13/2019 Office Visit Family Medicine Jess Tovar MD [address] [place] [address] [phone] 03/13/2019 Office [place] [address] [place] [phone] 03/19/2019 Office Visit Family Medicine Omar Clay, DO [address] [place] [address] [phone], Jennifer Adult Infusion Nurse 04/17/2019 Nurse Visit Infusion Therapy Sebastian Doe [address] [place] [address] [phone] 04/30/2019 Office Visit Pain Medicine Omar Clay, DO [address] [place] [address] [phone], Jennifer Adult Infusion Nurse 06/12/2019 Nurse [...] Head, Donal Uhr Bipolar BIPOLAR Right: Hip Doanl 27n13zx #[id number] - S0 head Implanted: Qty: 1 on 09/18/2017 by Sebastian Bunn MD at [facility] 07/07/2021 1023-12 / [id number] / [id number] Cancellous Cubes, Community Tissue BONE Right: Hip [facility] Services Freeze Dried 30 Cc Tissue #1023-12 - [id number] Services Implanted: Qty: 1 on 09/18/2017 by Sebastian Bunn MD at [facility] 03/08/2018 2018-40 / [id number] / [id number] Dbm Putty Maxxeus 10cc Cts #2018-40 BONE Right: Hip [facility] - [id number] Tissue Implanted: Qty: 1 on 09/18/2017 by Services Sebastian Bunn MD at [facility] 04/07/2022 1365-28-720 / 0 / [id number] Delta Ceramic Femoral Head 28mm +5 Head Right: Hip Depuy 06/21 Taper Depuy Ref#[id number] Synthes Implanted: Qty: 1 on 09/18/2017 by Sebastian Bunn MD at [facility] 03/29/2022 623-00-44F / 0 / [id number] Insert, Donal Trident 0deg 44mm Liner Right: Hip [place] #[id number] Implanted: Qty: 1 on 09/18/2017 by Sebastian Bunn MD at [facility] 04/24/2022 5260-5-050 / 0 / [id number] Screw Osteolock 3.[address] SCREW Right: Hip [place] Cancellous 50mm Donal Ref#[id number] Implanted: Qty: 2 on 09/18/2017 by Sebastian Bunn MD at [facility] 06/01/2022 5260-5-020 / 0 / [id number] Screw Ostelock 3.[address] SCREW Right: Hip Donal Cancellous 20mm Donal Ref#[id number] Implanted: Qty: 1 on 09/18/2017 by Sebastian Bunn MD at [facility] 06/01/2022 5260-5-016 / 0 / [id number] Screw Osteolock 3.[address] SCREW Right: Hip Donal Cancellous 18mm [place] Ref#[id number] Implanted: Qty: 1 on 09/18/2017 by Sebastian Bunn MD at [facility] 01/02/2022 509-02-60F / 0 / [id number] Shell, Donal Tritanium Revision Shell Right: Hip [place] Acetabular #[id number] - S0 Implanted: Qty: 1 on 09/18/2017 by Sebastian Bunn MD at [facility] documented as of this encounter Results Not on filedocumented in this encounter Visit Diagnoses Diagnosis Special screening for malignant neoplas ms, colon - Primary documented in this encounter Insurance Type Payer Benefit Subscriber ID Effective Phone Address Plan / Dates Group Medicare Adv O [facility] [id number] 2018- MANAGED MEDICARE HEALTHCARE Present DUAL COMPLETE [place] ([place]) [place] [address] documented as of this encounter Advance Directives Patient Chemistry Lab Instructor Explanation Type Date Recorded 0 Advance Directives 08/08/2013 8:00 AM and Living Will Power of Vaccine Manager 08/08/2013 8:00 AM
--- OUTSIDE RECORDS SUMMARY | 2019-12-13 15:25 | XMS REPORT | Clinical Summary ---
Author Author [facility] Organization [facility] Address Unknown Phone Unavailable Care Team Providers Care Security Business Analyst Name Role Phone Ovidio Clarke MD PCP Allergies Comments Active Allergy Reactions Severity Noted Date Sulfa (Sulfonamide 01/31/2018 Antibiotics) Medications End Date Status Medication Sig Dispensed Refills Start Date Active folic acid (FOLVITE) 1 MG Take 1 mg by 0 tablet mouth daily. Active gabapentin (NEURONTIN) Take 300 mg 0 300 mg capsule by mouth 2 (two) times a day. Active hydroCHLOROthiazide Take 12.5 mg 0 (MICROZIDE) 12.5 mg by mouth capsule every morning. Active HYDROcodone-acetaminophen Take 1 tablet 0 (NORCO) 10-325 mg per by mouth tablet every 6 (six) hours as needed for moderate pain. Active zolpidem (AMBIEN) 10 mg Take 10 mg by 0 tablet mouth nightly as needed for sleep. Active omeprazole (PriLOSEC) 40 Take 40 mg by 0 MG capsule mouth daily. Active riFAMpin (RIFADIN) 300 MG Take 300 mg 0 capsule by mouth 3 (three) times a week. Active ethambutol (MYAMBUTOL) Take 400 mg 0 400 MG tablet by mouth 3 (three) times a week. Active azithromycin (ZITHROMAX) Take 250 mg 0 250 MG tablet by mouth 3 (three) times a week. Take 2 tablets the first day, then 1 tablet daily for 4 days. 01/14/2019 dicyclomine (BENTYL) 20 Take 1 tablet 60 tablet 0 mg tablet (20 mg total) 9 by mouth 2 (two) times a day for 30 days. 01/14/2019 Al hyd-Mg tr-alg ac-sod Chew 2 20 tablet 0 bicarb (GAVISCON) 80-14.2 tablets 3 9 mg tablet,chewable (three) times a day as needed (abdominal pain) for up to 30 days. 01/14/2019 ondansetron ODT (ZOFRAN Take 1 tablet 20 tablet 0 ODT) 4 MG disintegrating (4 mg total) 9 tablet by mouth every 8 (eight) hours as needed for nausea for up to 30 days. 12/20/2018 acetaminophen-codeine Take 1-2 15 tablet 0 (TYLENOL WITH CODEINE #3) tablets by 9 300-30 mg per tablet mouth every 6 (six) hours as needed for moderate pain for up to 5 days. 01/14/2019 naproxen (NAPROSYN) 375 Take 1 tablet 60 tablet 0 MG tablet (375 mg 9 total) by mouth 2 (two) times a day with meals for 30 days. Active Problems Problem Noted Date Transient cerebral ischemia 01/31/2018 Encounters Care Team Description Date Type Specialty 12/09/2019 Travel 12/15/2018 Travel Jeremias Harris MD Generalized abdominal pain (Primary Dx); Myalgia; Neck strain, initial encounter 12/14/2018 Emergency Emergency Medicine - 12/15/2018 after 12/12/2018 Social History Date Tobacco Use Types Packs/Day Years Used Current Every Day Smoker 1 Smokeless Tobacco: Never Used Drinks/Week oz/Week Comments Alcohol Use No Sex Assigned at Date Recorded Not on file Industry Job Start Date Occupation Not on file Not on file Not on file Travel End Travel History Travel Start No recent travel history available. Date Recorded COVID-19 Exposure Response 12/09/2019 8:46 AM CDT In the last month, have you been in contact with No / Unsure someone who was confirmed or suspected to have Coronavirus / COVID-19? Last Filed Vital Signs Reading Time Taken Comments Vital Sign 141/82 12/15/2018 3:47 AM CDT Blood Pressure 73 12/15/2018 3:47 AM CDT Pulse 36.4 C (97.5 F) 12/14/2018 11:29 PM CDT Temperature 16 12/15/2018 3:47 AM CDT Respiratory Rate 98% 12/15/2018 1:44 AM CDT Oxygen Saturation - - Inhaled Oxygen Concentration 83.9 kg (185 lb) 12/14/2018 11:29 PM CDT Weight 165.1 cm (5' 5") 12/14/2018 11:29 PM CDT Height 30.79 12/14/2018 11:29 PM CDT Body Mass Index Plan of Treatment Care Team Description Date Type Specialty Frankie Boone MD 2019 [facility] [address] [place] [address] [phone] 12/16/2019 Office Visit Sports Medicine Health Maintenance Due Date Last Done Comments CERVICAL CANCER SCREENING 1985 BREAST CANCER SCREENING 2014 COLONOSCOPY SCREENING 2014 SHINGLES VACCINES (#1) 2014 INFLUENZA VACCINE 02/07/2020 05/01/2018, 04/09/2013, 05/10/2012, Additional history exists Implants Device Identifier Shelf Expiration Date Model / Serial / L ot Implanted Type Area Manufactur er Hip Procedures Comments Procedure Name Priority Date/Time Associated Diag nosis US GALLBLADDER STAT 12/15/2018 2:[address] ABDOMEN PELVIS W STAT 12/15/2018 CONTRAST 1:40 AM CDT URINE CULTURE STAT 12/15/2018 12:40 AM CDT GRAM STAIN STAT 12/15/2018 12:40 AM CDT HCG QUALITATIVE, URINE STAT 12/15/2018 SCREEN 12:32 AM CDT URINALYSIS SCREEN AND STAT 12/15/2018 MICROSCOPY, WITH REFLEX 12:32 AM CDT TO CULTURE XR CHEST 1 VW PORTABLE STAT 12/15/2018 12:10 AM CDT ESTIMATED GFR STAT 12/14/2018 11:58 PM CDT TROPONIN STAT 12/14/2018 11:58 PM CDT LIPASE LEVEL STAT 12/14/2018 11:58 PM CDT HEPATIC FUNCTION PANEL STAT 12/14/2018 11:58 PM CDT PARTIAL THROMBOPLASTIN STAT 12/14/2018 TIME (PTT) 11:58 PM CDT PROTHROMBIN TIME WITH INR STAT 12/14/2018 11:58 PM CDT TYPE AND SCREEN Routine 12/14/2018 11:58 PM CDT HC COMPLETE BLD COUNT STAT 12/14/2018 W/AUTO DIFF 11:58 PM CDT BASIC METABOLIC PANEL STAT 12/14/2018 11:58 PM CDT after 12/12/2018 Results * US Gallbladder (12/15/2018 2:43 AM CDT) Specimen Narrative Performed At EXAMINATION: US GALLBLADDER [facility] CLINICAL HISTORY: ; eval og COMPARISON: None. IMPRESSION: No gallstones, sludge, wall thickening, or pericholecystic fluid. The common bile duct measures 0.39 cm, within normal limits. Main portal vein measures 1.2 cm and de monstrates expected hepatopedal flow. [facility]-[id number] Procedure Note Hm Interface, Radiology Results Incoming - 12/15/2018 2:49 AM CDT EXAMINATION: US GALLBLADDER CLINICAL HISTORY: ; eval og COMPARISON: None. IMPRESSION: No gallstones, sludge, wall thickening, or pericholecystic fluid. The common bile duct measures 0.39 cm, within normal limits. Main portal vein measures 1.2 cm and demonstrates expected hepatopedal flow. [id number] Performing Organization Address [facility] one Number [facility] [address] [place] [address] * CT Abdomen Pelvis W Contrast (12/15/2018 1:40 AM CDT) Specimen Narrative Performed At CT ABDOMEN PELVIS W CONTRAST [facility] CLINICAL INDICATION: diffuse abd pain TECHNIQUE: Multidetector CT of the abdo men and pelvis was performed following intravenous administration of iodinated contrast with multiplanar reformats. CT scans are performed using radiation dose reduction techniques (iterative reconstruction and/or automated exposur e control). Technical factors are evaluated and adjusted to ensure approp riate moderation of exposure. Automated dose management technology is applied to adjust radiation exposure while achieving a diagnostic quality image. COMPARISON: None. FINDINGS: Lung bases: Basilar subsegmental atel ectasis/scarring. Liver: Normal. Gallbladder and biliary: Gallbladder is unremarkable. Common bile duct is not dilated. Pancreas: Normal. Spleen: Normal. Gastrointestinal: Sigmoid diverticulosi s. Large and small bowel are normal in caliber. Appendix is visualized and halley ears normal. Adrenals: Normal. Kidneys and ureters: Few bilateral subc entimeter renal cysts/hypodensities are overall too small to characterize thoug h are likely benign. [No follow-up recommended unless clinically warranted .] No mass or hydronephrosis. Urinary bladder: Normal. Lymph nodes: No enlarged lymph nodes in the abdomen or pelvis. Peritoneum: No ascites or free air. Vascular: Unremarkable. Reproductive organs: Uterus is absent . Unremarkable adnexae. Abdominal wall: Unremarkable. Bones: Status post right hip arthropl asty. Heterotopic ossification about the right hip joint. IMPRESSION: 1. Negative CT for acute pathology with in the abdomen and pelvis. 2. Sigmoid diverticulosis without diver ticulitis. [facility]-[id number] Procedure Note [facility], Radiology Results Incoming - 12/15/2018 1:[address] ABDOMEN PELVIS W CONTRAST CLINICAL INDICATION: diffuse abd pain TECHNIQUE: Multidetector CT of the abdomen and pelvis was performed following intravenous administration of iodinated contrast with multiplanar reformats. CT scans are performed using radiation dose reduction techniques (iterative reconstruction and/or automated exposure control). Technical factors are evaluated and adjusted to ensure appropriate moderation of exposure. Automated dose management technology is applied to adjust radiation exposure while achieving a diagnostic quality image. COMPARISON: None. FINDINGS: Lung bases: Basilar subsegmental atelectasis/scarring. Liver: Normal. Gallbladder and biliary: Gallbladder is unremarkable. Common bile duct is not dilated. Pancreas: Normal. Spleen: Normal. Gastrointestinal: Sigmoid diverticulosis. Large and small bowel are normal in caliber. Appendix is visualized and appears normal. Adrenals: Normal. Kidneys and ureters: Few bilateral subcentimeter renal cysts/hypodensities are overall too small to characterize though are likely benign. [No follow-up recommended unless clinically warranted.] No mass or hydronephrosis. Urinary bladder: Normal. Lymph nodes: No enlarged lymph nodes in the abdomen or pelvis. Peritoneum: No ascites or free air. Vascular: Unremarkable. Reproductive organs: Uterus is absent. Unremarkable adnexae. Abdominal wall: Unremarkable. Bones: Status post right hip arthroplasty. Heterotopic ossification about the right hip joint. IMPRESSION: 1. Negative CT for acute pathology withi n the abdomen and pelvis. 2. Sigmoid diverticulosis without divert iculitis. [id number] Performing Organization Address [facility] [place] [address] * Gram stain (12/15/2018 12:40 AM CDT) Gram stain Few WBC's DE OLIVEIRA result Occasional Gram variable rods [facility] Comment: HOSPITAL Specimen Information Specimen Source: Urine Specimen Site: Clean catch Specimen Urine Performing Organization Address [facility] Ph one Number [facility] DEPARTMENT OF [address] [place] [address] PATHOLOGY AND GENOMIC MEDICINE [address] * Urine culture (12/15/2018 12:40 AM CDT) Urine culture Mixed jennifer <=10-3 col/cc [facility] isolate Comment: ROMAN CATHOLIC Specimen Information HOSPITAL Specimen Source: Urine Specimen Site: Clean catch Specimen Urine Performing Organization Address [facility] one Number [facility] DEPARTMENT OF [address] [place] [address] PATHOLOGY AND GENOMIC MEDICINE [address] * Urinalysis screen and microscopy, with reflex to culture (12/15/2018 12:32 AM CDT) Specimen site Clean catch [facility] Color, UA Yellow [facility] Appearance, UA Clear [facility] Specific 1.012 1.001 - 1.035 [facility] gravity, UA [facility] pH, UA 6.0 5.0 - 8.5 [facility] Protein, UA Negative Negative [facility] Glucose, UA Negative Negative [facility] Ketones, UA Negative Negative [facility] Bilirubin, UA Negative Negative [facility] Blood, UA Small (A) Negative [facility] Nitrite, UA Negative Negative [facility] Urobilinogen, Negative <2.0 [facility] Leukocyte Trace (A) Negative [facility] esterase, UA [facility] Epithelial Few /HPF [facility] cells, UA [facility] WBC, UA 3 0 - 5 /HPF [facility] RBC, UA 16 (H) 0 - 5 /HPF [facility] Bacteria, UA Trace None seen [facility] Yeast, UA None seen [facility] Yeast with None seen [facility] pseudohyphae, ROMAN CATHOLIC UA [facility] Specimen Urine Performing Organization Address City/[facility] Ph one Number [facility] DEPARTMENT OF [address] [place] [address] PATHOLOGY AND GENOMIC MEDICINE [facility] [address] * hCG qualitative, urine screen (12/15/2018 12:32 AM CDT) hCG Negative Negative [facility] qualitative, Comment: ROMAN CATHOLIC urine The manufacturers stated LYBURN sensitivity of HcG test for HOSPITAL serum is >/= 10 mIU/ml and urine is >/= 20mIU/ml. Specimen Urine Performing Organization Address [facility] Ph one Number [facility] DEPARTMENT OF [address] [place] [address] PATHOLOGY AND GENOMIC MEDICINE [facility] [address] * XR Chest 1 Vw Portable (12/15/2018 12:10 AM CDT) Specimen Narrative Performed At EXAMINATION: XR CHEST 1 VW PORTABLE [facility] CLINICAL HISTORY: SOB COMPARISON: 01/31/2018 chest x-ray. IMPRESSION: The lungs are clear. No pleural effusion or pneumothorax. The cardiomediastinal silhouette is nor mal. No acute osseous abnormalities. [facility]-[id number] Procedure Note Hm Interface, Radiology Results Incoming - 12/15/2018 12:19 AM CDT EXAMINATION: XR CHEST 1 VW PORTABLE CLINICAL HISTORY: SOB COMPARISON: 01/31/2018 chest x-ray. IMPRESSION: The lungs are clear. No pleural effusion or pneumothorax. The cardiomediastinal silhouette is normal. No acute osseous abnormalities. [facility]-[id number] Performing Organization Address City/[facility] Ph one Number [facility] [address] [place] [address] * Estimated GFR (12/14/2018 11:58 PM CDT) [facility] Estimated GFR >=90 mL/min/1.73 m2 [facility] Comment: ROMAN CATHOLIC Catergory Units L[facility]URN Interpretation HOSPITAL G1 >=90 Normal or high G2 60-89 Mildly decreased G3a 45-59 Mildly to moderately decreased G3b 30-44 Moderately to severely decreased G4 15-29 Severely decreased G5 <15 Kidney failure The eGFR was calculated using the Chronic Kidney Disease Epidemiology Collaboration (CKD-EPI) equation. Interpretation is based on recommendations of the National Kidney Foundation-Kidney Disease Outcomes Quality Initiative (NKF-KDOQI) published in 2014. Specimen Plasma specimen Performing Organization Address City/[facility] Ph one Number [facility] DEPARTMENT OF [address] [place] [address] PATHOLOGY AND [facility] MEDICINE [address] * Troponin (12/14/2018 11:58 PM CDT) [facility] Troponin <0.006 0.000 - 0.040 ng/mL [facility] Comment: ROMAN CATHOLIC [facility] LYBURN changed methodology effective: HOSPITAL 11/12/2018 at 10:00 am The new method has a 99th percentile cutoff of 0.040 ng/mL Specimen Plasma specimen Performing Organization Address [facility] one Number [facility] DEPARTMENT OF [address] [place] [address] * Partial thromboplastin time, activated (12/14/2018 11:58 PM CDT) [facility] PTT 36.6 (H) 23.0 - 36.0 sec [facility] Comment: ROMAN CATHOLIC PTT therapeutic range for LYBURN unfractionated heparin is HOSPITAL 61.0-112.0 seconds which corresponds to Anti-Xa 0.3-0.7 U/ml. Note: Change in Panic Value The PTT Panic Value is changing from 110 sec. to 100 sec. due to new instrumentation and reagents. Correlation studies have been performed to validate this result. Specimen Blood Performing Organization Address City/[facility] Ph one Number [facility] DEPARTMENT OF [address] [place] [address] PATHOLOGY AND GENOMIC MEDICINE [facility] [address] * Prothrombin time with INR (12/14/2018 11:58 PM CDT) Pathologist [facility] Prothrombin 12.9 11.5 - 14.5 sec [facility] INR 1.00 [facility] Comment: ROMAN CATHOLIC For patients on anticoagulant LYBURN therapy, reference ranges HOSPITAL below: Indication: INR Value Treatment of Venous Thrombosis, 2.0-3.0 pulmonary emboli, or prophylaxis of a venous thrombosis, or systemic emboli. High dose, high risk patients 3.0-4.5 with mechanical valves. NOTE: INR values over 3.0 are sometimes associated with gastrointestinal hemorrhage, especially values over 4.0. Specimen Blood Performing Organization Address City/State/[facility] Ph one Number [facility] DEPARTMENT OF [address] [place] [address] PATHOLOGY AND GENOMIC MEDICINE [facility] [address] * CBC with platelet and differential (12/14/2018 11:58 PM CDT) Pathologist [facility] WBC 9.4 4.2 - 11.0 k/uL [facility] RBC 3.99 (L) 4.04 - 5.86 m/uL [facility] HGB 13.3 11.5 - 15.3 g/dL [facility] HCT 42.4 34.0 - 45.0 % [facility] MCV 106.3 (H) 80.0 - 98.0 fL [facility] MCH 33.3 27.0 - 34.0 pg [facility] MCHC 31.4 (L) 31.5 - 36.5 g/dL [facility] RDW - SD 55.9 (H) 37.0 - 51.0 fL [facility] MPV 10.2 7.4 - 10.4 fL [facility] Platelet count 310 150 - 400 k/uL [facility] Nucleated RBC 0.00 /100 WBC [facility] Neutrophils 53.7 36.0 - 66.0 % [facility] Lymphocytes 34.5 24.0 - 44.0 % [facility] Monocytes 7.3 (H) 0.0 - 6.0 % [facility] Eosinophils 3.9 0.0 - 6.0 % [facility] Basophils 0.4 0.0 - 1.2 % [facility] Immature 0.2 0.0 - 1.0 % [facility] granulocytes [facility] Specimen Blood Performing Organization Address City/[facility] Ph one Number [facility] DEPARTMENT OF [address] [place] [address] PATHOLOGY AND GENOMIC MEDICINE [address] * Type and screen (12/14/2018 11:58 PM CDT) ABO grouping O [facility] Rh type POS [facility] Antibody screen NEG [facility] (gel) [facility] Specimen Blood Performing Organization Address City/State[facility] Ph one Number [facility] DEPARTMENT OF [address] [place] [address] PATHOLOGY AND GENOMIC MEDICINE [address] * Lipase level (12/14/2018 11:58 PM CDT) Lipase 29 13 - 60 U/L [facility] Specimen Plasma specimen Performing Organization Address City/[facility] Ph one Number [facility] DEPARTMENT OF [address] [place] [address] PATHOLOGY AND GENOMIC MEDICINE [address] * Hepatic function panel (12/14/2018 11:58 PM CDT) Pathologist [facility] Albumin 4.0 3.5 - 5.0 g/dL [facility] Total bilirubin <0.3 0.2 - 1.2 mg/dL [facility] Bilirubin <0.2 0.0 - 0.4 mg/dL [facility] Alkaline 105 (H) 0 - 104 U/L [facility] Protein 8.1 6.3 - 8.3 g/dL [facility] ALT 9 5 - 50 U/L [facility] AST 19 10 - 35 U/L [facility] Specimen Plasma specimen Performing Organization Address City/[facility] Ph one Number [facility] DEPARTMENT OF [address] [place] [address] PATHOLOGY AND GENOMIC MEDICINE [facility] [address] [place] [address] HOSPITAL * Basic metabolic panel (12/14/2018 11:58 PM CDT) Sodium 140 135 - 150 mEq/L [facility] Potassium 3.9 3.5 - 5.0 mEq/L [facility] Chloride 104 98 - 112 mEq/L [facility] CO2 24 24 - 31 mmol/L [facility] Anion gap 12@ANIO 7 - 15 mEq/L [facility] BUN 13 7 - 18 mg/dL [facility] Creatinine 0.80 0.50 - 0.90 mg/dL [facility] Glucose 107 (H) 65 - 100 mg/dL [facility] Calcium 9.7 8.3 - 10.2 mg/dL [facility] Specimen Plasma specimen Performing Organization Address [facility] Ph one Number [facility] DEPARTMENT OF [address] [place] [address] PATHOLOGY AND GENOMIC MEDICINE [facility] [address] [place] [address] HOSPITAL after 12/12/2018 Insurance Type Payer Benefit Subscriber ID Effective Phone Address Plan / Dates Group O [facility] DUAL xxxxxxxxx 2018- COMPLETE Present [facility] Medicaid MEDICAID MEDICAID xxxxxxxxx [id number] resent Advance Directives For more information, please contact: [phone] Patient Groundskeeper Explanation Type Date Recorded Advance Directives, 01/31/2018 11:10 AM Living Will and Medical Power of Braider Operator Advance Directives, 12/15/2018 12:44 AM Living Will and Medical Power of Braider Operator
--- OUTSIDE RECORDS SUMMARY | 2019-12-13 15:26 | XMS REPORT | Summary of Care ---
Author Author [facility] - Health Organization [facility] - Health Address Unknown Phone Unavailable Care Team Providers Care Biodiesel Engine Specialist Name Role Phone Ovidio Clarke MD PCP Reason for Visit * Reason Comments Rectal Bleeding * Auth/Cert Referred By Contact Referred To Contact Status Reason Specialty Diagnoses / Procedures [facility] Emergency Dept [address] [place] [phone] Emergency Medicine Encounter Details Care Team Description Date Type Department Rios Mario, SWEET DOUGH MIXER [address] [place] [address] Rectal bleeding (Primary Dx) 02/10/2019 Emergency [facility]-Emergency Depar tment [address] [place] [phone] Allergies Comments Active Allergy Reactions Severity Noted Date Aspirin Hives 03/21/2012 Sulfa (Sulfonamide Hives 11/29/2005 Antibiotics) documented as of this encounter (statuses as of 02/10/2019) Medications End Date Status Medication Sig Dispensed [...] as of this encounter (statuses as of 02/10/2019) Active Problems Problem Noted Date Special screening for malignant neoplasms, colon Overview: Added automatically from request for jimmy solorio [id number] Cervical spondylosis with radiculopathy 01/01/2019 Overview: Added automatically from request for jimmy solorio [id number] Mixed hyperlipidemia 08/13/2018 Overview: LDL 140 07/17/2018 Left tennis elbow 06/17/2018 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 Overview: R Avulsion fracture of lateral epicondyle of humerus 0 11/14/2017 Painful patella, unspecified laterality 11/05/2017 S/P revision of total hip 09/18/2017 Colon cancer screening 05/24/2017 Overview: Added automatically from request for jimmy solorio [id number] Hematemesis with nausea 05/24/2017 Overview: Added automatically from request for jimmy solorio [id number] Nausea and vomiting, intractability of vomiting not s pecified, unspecified 05/24/2017 vomiting type Overview: Added automatically from request for jimmy solorio [id number] ANJELICA (obstructive sleep apnea) 05/10/2017 Obesity (BMI 30-39.9) 05/01/2017 Microhematuria 02/14/2017 Complex tear of medial meniscus of right knee as curr ent injury, initial 01/18/2017 encounter Overview: Added automatically from request for jimmy solorio [id number] Elevated MCV 07/25/2016 Overview: 103.4 07/22/2016 Muscle [...] lobe nodular opacitiy on chest xray at [facility] 05/22/2015 Hiatus hernia syndrome 04/09/2015 Overview: EGD 03/23/2015 [facility] screening mammogram 01/06/2015 Immunization deficiency 10/09/2014 Overview: [...] lower leg 11/25/2013 Overview: ICD10 Diagnosis Term Public Address Technician Utility Knee crepitus 11/25/2013 Genu valgum, acquired 11/25/2013 Overview: ICD10 Diagnosis Term Public Address Technician Utility Patellofemoral misalignment with pain 11/25/2013 Primary [...] 11/16/2010 Headache 04/08/2010 Overview: ICD10 Diagnosis Term Public Address Technician Utility Nonerosive nonspecific gastritis 04/08/2010 Overview: EGD Dr. Lloyd Glossitis 02/23/2010 Tobacco use disorder 02/23/2010 Menorrhagia 05/19/2009 Vision blurred 05/19/2009 Acute upper respiratory infection 08/14/2008 Overview: ICD10 Diagnosis Term Public Address Technician Utility Acute pharyngitis 08/14/2008 Screening for malignant neoplasm of cervix 9 Overview: ICD10 Diagnosis Term Public Address Technician Utility Breast screening 07/16/2008 Overview: ICD10 Diagnosis Term Public Address Technician Utility Urinary tract infection, site not specified 04/29/20 08 Backache 06/02/2007 Overview: Lower back pain ICD10 Diagnosis Term Public Address Technician Utility Pain in joint 06/02/2007 Overview: ICD10 Diagnosis Term Public Address Technician Utility Cervicalgia 06/02/2007 Myalgia and myositis 06/02/2007 Overview: Bilateral trapezius pain ICD10 Diagnosis Term Public Address Technician Utility Absence of menstruation 04/25/2007 Anemia 03/25/2007 Overview: ICD10 Diagnosis Term Public Address Technician Utility Helicobacter pylori infection 06/11/2006 Overview: ICD10 Diagnosis Term Public Address Technician Utility Acute peptic ulcer 06/11/2006 Overview: ICD10 Diagnosis Term Public Address Technician Utility Abdominal pain 04/25/2006 Overview: ICD10 Diagnosis Term Public Address Technician Utility Ankylosing spondylitis 04/25/2006 Vaginitis and vulvovaginitis 04/25/2006 Overview: ICD10 Diagnosis Term Public Address Technician Utility Other, mixed, or unspecified nondependent drug abuse, continuous 11/30/2005 documented as of this encounter (statuses as of 02/10/2019) Resolved Problems Problem Noted Date Resolved Date Arm laceration, right, subsequent encounter 04/13/2014 04/13/2014 Syncope and collapse 02/27/2007 06/28/2014 Bipolar I disorder, most recent episode (or current) unspec ified 01/03/2007 01/23/2018 Overview: Dr. 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 11/30/2005 02/11/2018 Overview: ICD10 Diagnosis Term Public Address Technician Utility documented as of this encounter (statuses as of 02/10/2019) Immunizations Name Administration Dates Next Due Influenza [...] Signs Reading Time Taken Comments Vital Sign 135/64 02/10/2019 2:47 PM CDT Blood Pressure 89 02/10/2019 2:47 PM CDT Pulse 36.9 C (98.4 F) 02/10/2019 11:55 AM CDT Temperature 18 02/10/2019 2:47 PM CDT Respiratory Rate 99% 02/10/2019 2:47 PM CDT Oxygen Saturation - - Inhaled Oxygen Concentration 81.6 kg (180 lb) 02/10/2019 11:55 AM CDT Weight - - Height 29.95 02/03/2019 2:12 PM CDT Body Mass Index documented in this encounter Discharge Instructions * Attachments The following attachments cannot be sent through Care Everywhere.* Rectal Bleeding, Understanding (Qatari) * Rectal Bleeding, Evaluating and Treating (Qatari) documented in this encounter Plan of Treatment Care Team Description Date Type Specialty Jess Tovar MD [address] [place] [address] [id number] 02/11/2019 Office Visit Neurology Carley Villarreal MD [address] [place] [id number] [place] [address] [phone] 02/18/2019 Appointment Electroneurodiagnos tic Omar Clay DO [address] [place] [address] [phone] [phone] Adult Infusion Nurse 02/20/2019 Nurse Visit Infusion Therapy Rosario Joseph MD [address] [place] [phone] 03/04/2019 Office Visit Pulmonary Disease Omar Clay DO [address] [place] [address] [phone] 03/05/2019 Office Visit Rheumatology Asher Dexter MD [address] [place] [address] [phone] Hematemesis with nausea 03/06/2019 Hospital Surgery Encounter Asher Dexter MD [address] [place] [address] [phone] COLONOSCOPY 03/06/2019 Surgery Surgery Ann-Marie Johnson MD [address] [address] [phone] 03/13/2019 Office Visit Family Medicine Jess Tovar MD [address] [place], [place] [phone] 03/13/2019 Office [place] [address] [place] [phone] 03/19/2019 Office Visit Family Medicine Omar Clay, DO [address] [place] [address] [phone], Jennifer Adult Infusion Nurse 04/17/2019 Nurse Visit Infusion Therapy Sebastian Doe [address] [place] [id number] [place] [address] [phone] 04/30/2019 Office Visit Pain Medicine Ginny Oneal MD [address] [place] [address]. [place] [address] 06/09/2019 Office Visit Gastroenterology Omar Clay, DO [address] [place] [address] [phone], Jennifer Adult Infusion Nurse 06/12/2019 Nurse [...] Donal Uhr Bipolar BIPOLAR Right: Hip Donal [id number] #[id number] - S0 head Implanted: Qty: 1 on 09/18/2017 by Sebastian Bunn MD at [facility] 07/07/2021 1023-12 / [id number] / [id number] Cancellous Cubes, Community Tissue BONE Right: Hip [facility] Services Freeze Dried 30 Cc Tissue #1023-12 - [id number] Services Implanted: Qty: 1 on 09/18/2017 by Sebastian Bunn MD at [facility] 03/08/2018 2018-40 / [id number] / [id number] Dbm Putty Maxxeus 10cc Cts #2018-40 BONE Right: Hip [facility] - [id number] Tissue Implanted: Qty: 1 on 09/18/2017 by Services Sebastian Bunn MD at [facility] 04/07/2022 [id number] / 0 / [id number] Delta Ceramic Femoral Head 28mm +5 Head Right: Hip Depuy 06/21 Taper Depuy Ref#[id number] Synthes Implanted: Qty: 1 on 09/18/2017 by Sebastian Bunn MD at [facility] 03/29/2022 [id number] / 0 / [id number] Insert, [place] Trident 0deg 44mm Liner Right: Hip Donal #[id number] Implanted: Qty: 1 on 09/18/2017 by Sebastian Bunn MD at [facility] 04/24/2022 5260-5-050 / 0 / [id number] Screw Osteolock 3.[address] SCREW Right: Hip Donal Cancellous 50mm [place] Ref#[id number] Implanted: Qty: 2 on 09/18/2017 by Sebastian Bunn MD at [facility] 06/01/2022 5260-5-020 / 0 / [id number] Screw Ostelock 3.[address] SCREW Right: Hip Donal Cancellous 20mm [place] Ref#[id number] Implanted: Qty: 1 on 09/18/2017 by Sebastian Bunn MD at [facility] 06/01/2022 5260-5-016 / 0 / [id number] Screw Osteolock 3.[address] SCREW Right: Hip [place] Cancellous 18mm [place] Ref#[id number] Implanted: Qty: 1 on 09/18/2017 by Sebastian Bunn MD at [facility] 01/02/2022 [id number] / 0 / [id number] Shell, Donal Tritanium Revision Shell Right: Hip Donal Acetabular #[id number] - [id number] Implanted: Qty: 1 on 09/18/2017 by Sebastian Bunn MD at [facility] documented as of this encounter Procedures Comments Procedure Name Priority Date/Time Associated Diag nosis CBC WITH DIFFERENTIAL STAT 02/10/2019 Rectal b leeding 12:31 PM CDT CBC WITH DIFF Routine 02/10/2019 Rectal bleeding 12:31 PM CDT BASIC METABOLIC PANEL STAT 02/10/2019 Rectal b leeding (NA, K, CL, CO2, GLUCOSE, 12:31 PM CDT BUN, CREATININE, CA) documented in this encounter Results * CBC WITH DIFFERENTIAL (02/10/2019 12:31 PM CDT) WBC 9.53 4.30 - 11.10 [facility] 10*3/L [facility] RBC 4.25 3.93 - 5.25 10*6/L [facility] HGB 14.5 11.6 - 15.0 g/dL [facility] HCT 43.7 35.7 - 45.2 % [facility] MCV 102.8 (H) 80.6 - 95.5 fL [facility] MCH 34.1 (H) 25.9 - 32.8 pg [facility] MCHC 33.2 31.6 - 35.1 g/dL [facility] RDW-SD 52.2 (H) 39.0 - 49.9 fL [facility] RDW-CV 13.7 12.0 - 15.5 % [facility] PLT 309 166 - 358 10*3/L [facility] MPV 10.0 9.5 - 12.9 fL [facility] NRBC/100 WBC 0.0 0.0 - 10.0 /100 WBCs [facility] NRBC x10^3 <0.01 10*3/L [facility] GRAN MAT (NEUT) 61.2 % [facility] Y % [facility] IMM GRAN % 0.30 % [facility] LYMPH % 28.8 % [facility] MONO % 5.9 % [facility] EOS % 3.4 % [facility] BASO % 0.4 % [facility] GRAN MAT 5.84 1.88 - 7.09 10*3/uL [facility] x10^3(ANC) [facility] IMM GRAN x10^3 0.03 0.00 - 0.06 10*3/uL [facility] LYMPH x10^3 2.74 1.32 - 3.29 10*3/uL [facility] MONO x10^3 0.56 0.33 - 0.92 10*3/uL [facility] EOS x10^3 0.32 0.03 - 0.39 10*3/uL [facility] BASO x10^3 0.04 0.01 - 0.07 10*3/uL [facility] Specimen Blood - ARM, LEFT Performing Organization Address City/[facility] Centerb[facility] Ph one Number [facility] CLIA: [id number], [address] [place], [place] [address] [facility] [place] * Basic Metabolic Panel (NA, K, CL, CO2, GLUCOSE, BUN, CREATININE, CA) (02/10/2019 12:31 PM CDT) NA 142 135 - 145 mmol/L [facility] K 4.6Comment: Slight hemolysis 3.5 - 5.0 mmol/L [facility] CL 106 98 - 108 mmol/L [facility] Y [facility] CO2 TOTAL 28 23 - 31 mmol/L [facility] AGAP 8 2 - 16 [facility] BUN 8Comment: Slight hemolysis 7 - 23 mg/dL [facility] B LABORATORY [facility] GLUCOSE 99 70 - 110 mg/dL [facility] CREATININE 0.57 0.50 - 1.04 mg/dL [facility] CALCIUM 9.9 8.6 - 10.6 mg/dL [facility] RY [facility] eGFR 110.5 mL/min/1.73m2 [facility] [place]) eGFR 134.0 mL/min/1.73m2 [facility] [place]) Specimen Blood - ARM, LEFT Narrative Performed At Association of Glomerular Filtration Rate (GFR) and S taging of Kidney Disease* [facility] + + +------ + [facility] | GFR (mL/min/1.73 m2)| With Kidney Damage| Without Kidney Damage CAMPUS + + -------+ + |>90 |Stage one| Normal + + -------+ + |60-89 |Stage two| Decreased GFR + + -------+ + |30-59 |Stage three| Stage three + + -------+ + |15-29 |Stage four | Stage four + + -------+ + |<15 (or dialysis)|Stag e five | Stage five + + -------+ + *Each stage assumes the associated GFR level has been in effect for at least three months.Stages 1 to 5, with or without kidney disease, indicate chronic kidney disease. Notes: Determination of stages one and two (with eGFR >59mL/min/1.73 m2) requires estimation of kidney damage fo r at least three months as defined by structural or functional abnormalities of the kidney, manifested by either: Pathological abnormalities or Markers o f kidney damage (including abnormalities in the composition of the blood or urin e or abnormalities in imaging tests). Performing Organization Address City/State/[facility] Centerb[facility]il Ph one Number [facility] CLIA: [id number], [address] [place], [place] [address] [facility] documented in this encounter Visit Diagnoses Diagnosis Rectal bleeding - Primary Hemorrhage of rectum and anus documented in this encounter Administered Medications Action Date Dose Rate Site Medication Order MAR Action 02/10/2019 3:50 PM CDT 4 mg morpHINE injection 4 mg Given 4 mg, Slow IV Push, ONCE, 1 dose, 02/10/19 at 1600, STAT 02/10/2019 3:50 PM CDT 4 mg ondansetron (ZOFRAN (PF)) injection 4 mg Given 4 mg, Slow IV Push, ONCE, 1 dose, Sun02/10/19 at 1600, ALEKSANDR documented in this encounter Insurance Type Payer Benefit Subscriber ID Effective Phone Address Plan / Dates Group Medicare Adv [facility] [id number] 2018- MANAGED MEDICARE HEALTHCARE Present DUAL COMPLETE O Medicaid [facility] MEDICAID xxxxxxxxx 2019-P [phone] P O [place] [facility] [id number] [place] [address] documented as of this encounter Advance Directives Patient Technical Services Coordinator Explanation Type Date Recorded 0 Advance Directives 08/08/2013 8:00 AM and Living Will Power of Storeperson 08/08/2013 8:00 AM"
--- OUTSIDE RECORDS SUMMARY | 2019-12-13 15:26 | XMS REPORT | Summary of Care ---
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 Name Role Phone Ovidio Clarke MD PCP Reason for Visit * Reason Comments VAGINAL ODOR Encounter Details Care Team Description Date Type Department Frida Rose, DO [address] [place] [address] Vaginal odor (Primary Dx) 01/07/2019 Office Visit [facility], [address], [address] [place] [id number] Allergies Comments Active Allergy Reactions Severity Noted Date Aspirin Hives 03/21/2012 Sulfa (Sulfonamide Hives 11/29/2005 Antibiotics) documented as of this encounter (statuses as of 02/11/2019) Medications End Date Status Medication Sig Dispensed [...] 9 Cervicalgia, Myofascial (three) times pain daily. 01/17/2019 Discontinued paliperidone 9 mg 24 hr Take 1 tablet 30 tablet 0 tabletIndications: by mouth 9 Schizoaffective disorder, daily. depressive type 01/16/2019 Discontinued zolpidem (AMBIEN) 10 mg Take 1 tablet 30 tablet 1 tabletIndications: by mouth at 9 Insomnia, unspecified bedtime as type needed for Insomnia. 01/27/2019 Discontinued DESVENLAFAXINE SUCCINATE TAKE 1 TABLET 30 tablet 1 50 mg 24 hr BY MOUTH 9 tabletIndications: EVERY DAY Insomnia, unspecified type 01/29/2019 Discontinued Diclofenac Sodium APPLY TO THE 100 g 0 01 (VOLTAREN) 1 % AFFECTED AREA 9 gelIndications: Painful FOUR TIMES patella, unspecified DAILY laterality, Primary NEEDED FOR localized osteoarthrosis, PAIN lower leg, unspecified laterality, Muscle weakness of lower extremity, Effusion of lower leg joint, Knee crepitus, unspecified laterality, Patellofemoral instability of right knee with pain 01/14/2019 metroNIDAZOLE (FLAGYL) Take 1 tablet 14 tablet 0 0 500 mg tablet by mouth 9 every 12 (twelve) hours for 7 days. Status Hospital, Clinic, or Ordered Dose Route Frequency Start End Date Other Facility Date Administered Medication Active lactated ringers IV 1000 mL IV Infusion CONTINUOUS infusion 1,000 mL 19 documented as of this encounter (statuses as of 02/11/2019) Active Problems Problem Noted Date Special screening for malignant neoplasms, colon Overview: Added automatically from request for jimmy solorio [id number] Cervical spondylosis with radiculopathy 01/01/2019 Overview: Added automatically from request for jimmy solorio [id number] Mixed hyperlipidemia 08/13/2018 Overview: LDL 140 07/17/2018 Left tennis elbow 06/17/2018 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 Overview: R Avulsion fracture of lateral epicondyle of humerus 0 11/14/2017 Painful patella, unspecified laterality 11/05/2017 S/P revision of total hip 09/18/2017 Colon cancer screening 05/24/2017 Overview: Added automatically from request for jimmy solorio [id number] Hematemesis with nausea 05/24/2017 Overview: Added automatically from request for jimmy solorio [id number] Nausea and vomiting, intractability of vomiting not s pecified, unspecified 05/24/2017 vomiting type Overview: Added automatically from request for jimmy solorio [id number] ANJELICA (obstructive sleep apnea) 05/10/2017 Obesity (BMI 30-39.9) 05/01/2017 Microhematuria 02/14/2017 Complex tear of medial meniscus of right knee as curr ent injury, initial 01/18/2017 encounter Overview: Added automatically from request for jimmy solorio [id number] Elevated MCV 07/25/2016 Overview: 103.4 07/22/2016 Muscle [...] lobe nodular opacitiy on chest xray at [facility] 05/22/2015 Hiatus hernia syndrome 04/09/2015 Overview: EGD 03/23/2015 [facility] screening mammogram 01/06/2015 Immunization deficiency 10/09/2014 Overview: [...] lower leg 11/25/2013 Overview: ICD10 Diagnosis Term Black Studies Professor Utility Knee crepitus 11/25/2013 Genu valgum, acquired 11/25/2013 Overview: ICD10 Diagnosis Term Black Studies Professor Utility Patellofemoral misalignment with pain 11/25/2013 Primary [...] 11/16/2010 Headache 04/08/2010 Overview: ICD10 Diagnosis Term Black Studies Professor Utility Nonerosive nonspecific gastritis 04/08/2010 Overview: EGD Dr. Lloyd Glossitis 02/23/2010 Tobacco use disorder 02/23/2010 Menorrhagia 05/19/2009 Vision blurred 05/19/2009 Acute upper respiratory infection 08/14/2008 Overview: ICD10 Diagnosis Term Black Studies Professor Utility Acute pharyngitis 08/14/2008 Screening for malignant neoplasm of cervix 9 Overview: ICD10 Diagnosis Term Black Studies Professor Utility Breast screening 07/16/2008 Overview: ICD10 Diagnosis Term Black Studies Professor Utility Urinary tract infection, site not specified 04/29/20 08 Backache 06/02/2007 Overview: Lower back pain ICD10 Diagnosis Term Black Studies Professor Utility Pain in joint 06/02/2007 Overview: ICD10 Diagnosis Term Black Studies Professor Utility Cervicalgia 06/02/2007 Myalgia and myositis 06/02/2007 Overview: Bilateral trapezius pain ICD10 Diagnosis Term Black Studies Professor Utility Absence of menstruation 04/25/2007 Anemia 03/25/2007 Overview: ICD10 Diagnosis Term Black Studies Professor Utility Helicobacter pylori infection 06/11/2006 Overview: ICD10 Diagnosis Term Black Studies Professor Utility Acute peptic ulcer 06/11/2006 Overview: ICD10 Diagnosis Term Black Studies Professor Utility Abdominal pain 04/25/2006 Overview: ICD10 Diagnosis Term Black Studies Professor Utility Ankylosing spondylitis 04/25/2006 Vaginitis and vulvovaginitis 04/25/2006 Overview: ICD10 Diagnosis Term Black Studies Professor Utility Other, mixed, or unspecified nondependent drug abuse, continuous 11/30/2005 documented as of this encounter (statuses as of 02/11/2019) Resolved Problems Problem Noted Date Resolved Date Arm laceration, right, subsequent encounter 04/13/2014 04/13/2014 Syncope and collapse 02/27/2007 06/28/2014 Bipolar I disorder, most recent episode (or current) unspec ified 01/03/2007 01/23/2018 Overview: Dr. 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 documented as of this encounter Last Filed Vital Signs Reading Time Taken Comments Vital Sign 112/80 01/07/2019 1:19 PM CDT Blood Pressure 105 01/07/2019 1:19 PM CDT Pulse - - Temperature - - Respiratory Rate - - Oxygen Saturation - - Inhaled Oxygen Concentration 86.8 kg (191 lb 4.8 oz) 01/07/2019 1:19 PM CDT Weight 160 cm (5' 3") 01/07/2019 1:19 PM CDT Height 33.89 01/07/2019 1:19 PM CDT Body Mass Index documented in this encounter Progress Notes * Frida Rose, - 01/07/2019 1:15 PM CDT Chief complaint: Chief Complaint Patient presents with VAGINAL ODOR Patient is a 53 yo postmenopausal female who presents with c/o vaginal odor that has been persistent. She originally made an appointment on 12/24/18 but just prior to that visit her PCP diagnosed her with UTI (by urine culture) and she was taking the 10 days of antibiotics so she decided to reschedule to see if the odor might be related to the UTI and therefore might resolve with its treatment. She reports she completed the medication and the odor is still there. 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 Due to this, she has been prone to getting frequent yeast infections in past and that "Miss Vega" used to give her diflucan to take once per week to p revent it. She thinks that's probably what is going on again because she has bee n out of that prescription for a while. She denies any itching or vaginal discha rge but just a persistent bad odor that makes her feel very self-conscious aroun d others because she feels like they must be able to smell her. She knows you ar e not supposed to douche, but she has been doing so because otherwise she says s he just can't feel clean, and that she is a very clean person. No other concerns . Histories OB History Para Term AB Living 2 0 2 SAB TAB Ectopic Multiple Live Births # Outcome Date GA Lbr Nirav/2nd Weight Sex Delivery Anes PTL Lv 2 VAGINAL 1 VAGINAL Past Medical History: Diagnosis Date Abdominal pain [...] 04/09/2015 EGD 03/23/2015 [facility] Immunization deficiency 10/09/2014 She is NOT immune [...] veins of legs 11/16/2010 Vision blurred 05/19/2009 Family History Problem Relation Age of Onset Diabetes Mother Breast Cancer NoFHx Colon Cancer NoFHx Ovarian Cancer NoFHx Uterine Cancer NoFHx Cancer NoFHx Heart NoFHx Family Status Relation Name Status Mo Fa Mo (Not Specified) NoFHx (Not Specified) Past Surgical History: Procedure Laterality Date ABDOMINAL HYSTERECTOMY 11/15/2009 Dr. Ro ARTHROSCOPIC FOREIGN BODY REMOVAL (SHX) Right 01/06/2014 Surgeon: Girish Fountain MD; Location: [facility] ARTHROSCOPIC MENISCAL REPAIR Right 01/06/2014 Surgeon: Girish Fountain MD; Location: [facility] CERVICAL EPIDURAL STEROID INJECTION 03/26/2012 Surgeon: Maged Franklin MD PHD; Location: [facility] COLONOSCOPY N/A 06/22/2015 Surgeon: Arian To MD; Location: [facility] EGD (ENDO) 03/23/2015 [facility] ESOPHAGOGASTRODUODENOSCOPY 04/13 ulcers ESOPHAGOGASTRODUODENOSCOPY 06/15 ESOPHAGOGASTRODUODENOSCOPY 10/07/2009 mild nonerosive gastritis ESOPHAGOGASTRODUODENOSCOPY N/A 06/22/2015 Surgeon: Arian To MD; Location: [facility] OR LOC[facility] FLEXIBLE BRONCHOSCOPY 05/24/2015 Samira, 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 HIP HEMIARTHROPLASTY 2001 Right KNEE ARTHROSCOPY Right 01/06/2014 Surgeon: Girish Fountain MD; Location: [facility] [place] LOCATION [place] ARTHRS KNE SURG W/MENISCECTOMY MED/LAT W/SHVG 01/06/2014 [place] KNEE SCOPE,REMV LOOSE BODY 01/06/2014 TOTAL HIP ARTHROPLASTY REVISION Right 09/18/2017 Surgeon: Sebastian Bunn MD; Location: [facility] TUBAL LIGATION 1987 Social History Socioeconomic History Marital status: Single [...] 5.00 Types: Cigarettes Smokeless tobacco: Never Used Substance and Sexual Activity Alcohol use: Yes Comment: occ Drug use: No Sexual activity: Never Lifestyle Physical activity: Days per week: Not on file Minutes per session: Not on file Stress: Not on file Relationships Social connections: Talks on phone: Not on file Gets together: Not on file Attends yazidism service: Not on file Active member of [...] file Social History Narrative Not on file Social History Substance and Sexual Activity Sexual Activity Never Allergies Juan is allergic to aspirin and sulfa (sulfonamide antibiotics). Medications Juan has a current medication list which includes the following prescription(s ): gabapentin, cyclobenzaprine, diclofenac sodium, esomeprazole, hydrocodone-juancho taminophen, desvenlafaxine succinate, methotrexate, paliperidone, zolpidem, kamari nazole, folic acid, azithromycin, ethambutol, rifampin, ventolin hfa, and hydroc hlorothiazide, and the following Facility-Administered Medications: lactated rin gers. Review of Systems Constitutional: Negative. Respiratory: Negative. Breasts: Negative. Cardiovascular: Negative. Gastrointestinal: Negative. Genitourinary: Negative for dysuria, hematuria, vaginal bleeding, vaginal discha rge and dyspareunia. Persistent vaginal odor Musculoskeletal: Negative. Skin: Negative. Neurological: Negative. Psychiatric/Behavioral: Negative. BP 112/80 | Pulse 105 | Ht 5' 3" (1.6 m) | Wt 191 lb 4.8 oz (86.8 kg) | LMP 11/08/2009 | BMI 33.89 kg/m Pregravid BMI: Could not be calculated Physical Exam Vitals reviewed. Constitutional: She is oriented to person, place, and time. She appears well-dev eloped and well-nourished. Pulmonary/Chest: Normal inspiratory effort. Neuro/Psychiatric: She has a normal mood and affect. She is oriented to person, place, and time. Skin: Skin normal. No rash present. External genitalia: Normal external genitalia appropriate for age. No labial les ion. Urethral meatus: Normal urethral meatus no lesion. Bladder: No tenderness. Vagina:Normal vagina. No lesion inspected. Normal estrogen effect. No abnormal v aginal discharge found. Strong fishy odor Cervix: Cervix absent. Anus/perineum: Normal perineum. Assessment/Plan Vaginal odor (primary encounter diagnosis) Comment: suspect BV on exam Plan: [facility] ONLY - VAGINAL PATHOGENS BY DNA PROBE, URINE CULTURE -urine culture sent for test of cure after treatment -GC/CT screening and Affirm swab sent -will treat with Flagyl x 7 days - dosing instructions and avoiding unprotected sex and alcohol during treatment -patient requests prolonged dosing of diflucan as well - discussed not indicated at this time and can treat if/when yeast infection occurs -would recommend topical miconazole treatment as opposed to chronic diflucan use due to many other medications she is taking and potential termination clerk hepatic eff ects -avoid douching to prevent recurrences -RTC as needed documented in this encounter Plan of Treatment Care Team Description Date Type Specialty Carley Villarreal MD [address] [facility] [id number] [place], [place] [id number] 02/18/2019 Appointment Electroneurodiagnos tic Omar Clay DO [address] [place] [address] [phone], Jennifer Adult Infusion Nurse 02/20/2019 Nurse Visit Infusion Therapy Rosario Joseph MD [address] [place] [phone] 03/04/2019 Office Visit Pulmonary Disease Omar Clay, [address] [place] [address] [phone] 03/05/2019 Office Visit Rheumatology Asher Dexter MD [address] [place] [address] [phone] Hematemesis with nausea 03/06/2019 Hospital Surgery Encounter Asher Dexter MD [address] [place], [place] [phone] COLONOSCOPY 03/06/2019 Surgery Surgery Ann-Marie Johnson MD [address] [place] [address] [phone] 03/13/2019 Office Visit Family Medicine Jess Tovar MD [address] [place] [address] [phone] 03/13/2019 Office [place] [address] [place] [phone] 03/19/2019 Office Visit Family Medicine Omar Clay DO [address] [place] [address] [phone] 3, Jennifer Adult Infusion Nurse 04/17/2019 Nurse Visit Infusion Therapy Sebastian Doe [address] [facility] [id number] [place], [place] [address] 04/30/2019 Office Visit Pain Medicine Ginny Oneal MD [address] [place] [address]. [place] [address] 06/09/2019 Office Visit Gastroenterology Omar Clay, DO [address] [place] [address] [phone] 3, Jennifer Adult Infusion Nurse 06/12/2019 Nurse Visit Infusion Therapy Date/Time Name Type Priority Associated Diag noses 01/07/2019 2:13 PM CDT URINE CULTURE LAB Routine Vaginal odor Health Maintenance Due Date Last Done Comments [...] ot Implanted Type Area Manufactur er 08/23/2022 1-44-28 / 0 / [id number] Bipolar Head, Donal Uhr Bipolar BIPOLAR Right: Hip Donal [id number] #[id number] - S0 head Implanted: Qty: 1 on 09/18/2017 by Sebastian Bunn MD at [facility] 07/07/2021 1023-12 / [id number] / [id number] Cancellous Cubes, Community Tissue BONE Right: Hip [facility] Freeze Dried 30 Cc Tissue #1023-12 - [id number] Services Implanted: Qty: 1 on 09/18/2017 by Sebastian Bunn MD at [facility] 03/08/20182017-40 / [id number] / [id number] Dbm Putty Maxxeus 10cc Cts #2017-40 BONE Right: Hip [facility] - [id number] Tissue Implanted: Qty: 1 on 09/18/2017 by Services Sebastian Bunn MD at [facility] 04/07/2022 1365-28-720 / 0 / [id number] Delta Ceramic Femoral Head 28mm +5 Head Right: Hip Depuy 06/21 Taper Depuy Ref#[id number] Synthes Implanted: Qty: 1 on 09/18/2017 by Sebastian Bunn MD at [facility] 03/29/2022 623-00-44F / 0 / [id number] Insert, [place] Trident 0deg 44mm Liner Right: Hip [place] #[id number] Implanted: Qty: 1 on 09/18/2017 by Sebastian Bunn MD at [facility] 04/24/2022 5260-5-050 / 0 / [id number] Screw Osteolock 3.[address] SCREW Right: Hip Donal Cancellous 50mm [place] Ref#[id number] Implanted: Qty: 2 on 09/18/2017 by Sebastian Bunn MD at [facility] 06/01/2022 5260-5-020 / 0 / [id number] Screw Ostelock 3.[address] SCREW Right: Hip [place] Cancellous 20mm [place] Ref#[id number] Implanted: Qty: 1 on 09/18/2017 by Sebastian Bunn MD at [facility] 06/01/2022 5260-5-016 / 0 / [id number] Screw Osteolock 3.[address] SCREW Right: Hip Donal Cancellous 18mm Donal Ref#[id number] Implanted: Qty: 1 on 09/18/2017 by Sebastian Bunn MD at [facility] 01/02/2022 [id number] / 0 / [id number] Shell, [place] Tritanium Revision Shell Right: Hip [place] Acetabular #[id number] - S0 Implanted: Qty: 1 on 09/18/2017 by Sebastian Bunn MD at [facility] documented as of this encounter Procedures Comments Procedure Name Priority Date/Time Associated Diag nosis GAL[facility] ONLY - VAGINAL Routine 01/07/2019 Vaginal od or PATHOGENS BY DNA PROBE 2:13 PM CDT documented in this encounter Results * [facility] ONLY - VAGINAL PATHOGENS BY DNA PROBE (01/07/2019 2:13 PM CDT) Trichomonas Negative Negative [facility] Gardnerella Positive (A) Negative [facility] Sheryl species Positive (A) Negative [facility] Specimen Fluid - VAGINA Performing Organization Address City/State/Zipcode Ph one Number [facility] CLIA: [id number], [address] [place] [address] [facility] documented in this encounter Visit Diagnoses Diagnosis Vaginal odor - Primary Unspecified symptom associated with fem darrian genital organs documented in this encounter Insurance Type Payer Benefit Subscriber ID Effective Phone Address Plan / Dates Group Medicare Adv O [facility] [id number] 2018- MANAGED MEDICARE HEALTHCARE Present DUAL COMPLETE HMO documented as of this encounter Advance Directives Patient Guest Attendant Explanation Type Date Recorded 0 Advance Directives 08/08/2013 8:00 AM and Living Will Power of Calender Inspector 08/08/2013 8:00 AM
--- OUTSIDE RECORDS SUMMARY | 2019-12-13 15:26 | XMS REPORT | Summary of Care ---
Author Author [facility] - Health Organization [facility] - Health Address Unknown Phone Unavailable Care Team Providers Care Pellet Press Operator Name Role Phone Ovidio Clarke MD PCP Reason for Visit * Reason Comments Results Encounter Details Care Team Description Date Type Department Frida Rose, DO [address] [place] [address] Results 02/06/2019 Telephone [facility], [address], [address] [place] [address] Allergies Comments Active Allergy Reactions Severity Noted Date Aspirin Hives 03/21/2012 Sulfa (Sulfonamide Hives 11/29/2005 Antibiotics) documented as of this encounter (statuses as of 02/06/2019) Medications End Date Status Medication Sig Dispensed [...] as of this encounter (statuses as of 02/06/2019) Active Problems Problem Noted Date Special screening for malignant neoplasms, colon Overview: Added automatically from request for marquez [employer] [id number] Cervical spondylosis with radiculopathy 01/01/2019 Overview: Added automatically from request for marquez [employer] [id number] Mixed hyperlipidemia 08/13/2018 Overview: LDL 140 07/17/2018 Left tennis elbow 06/17/2018 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 Overview: R Avulsion fracture of lateral epicondyle of humerus 0 11/14/2017 Painful patella, unspecified laterality 11/05/2017 S/P revision of total hip 09/18/2017 Colon cancer screening 05/24/2017 Overview: Added automatically from request for marquez [employer] [id number] Hematemesis with nausea 05/24/2017 Overview: Added automatically from request for marquez [employer] [id number] Nausea and vomiting, intractability of vomiting not s pecified, unspecified 05/24/2017 vomiting type Overview: Added automatically from request for jimmy solorio [id number] ANJELICA (obstructive sleep apnea) 05/10/2017 Obesity (BMI 30-39.9) 05/01/2017 Microhematuria 02/14/2017 Complex tear of medial meniscus of right knee as curr ent injury, initial 01/18/2017 encounter Overview: Added automatically from request for jimmy solorio [id number] Elevated MCV 07/25/2016 Overview: 103.4 07/22/2016 Muscle [...] lobe nodular opacitiy on chest xray at [facility] 05/22/2015 Hiatus hernia syndrome 04/09/2015 Overview: E[facility] 01/06/2015 Immunization deficiency 10/09/2014 [...] lower leg 11/25/2013 Overview: ICD10 Diagnosis Term Slusher 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 Knee crepitus 11/25/2013 Genu valgum, acquired 11/25/2013 Overview: ICD10 Diagnosis Term Slusher 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 Patellofemoral misalignment with pain 11/25/2013 Primary [...] 11/16/2010 Headache 04/08/2010 Overview: ICD10 Diagnosis Term Slusher 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 Lloyd Glossitis 02/23/2010 Tobacco use disorder 02/23/2010 Menorrhagia 05/19/2009 Vision blurred 05/19/2009 Acute upper respiratory infection 08/14/2008 Overview: ICD10 Diagnosis Term Slusher 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 Acute pharyngitis 08/14/2008 Screening for malignant neoplasm of cervix 9 Overview: ICD10 Diagnosis Term Slusher 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 Breast screening 07/16/2008 Overview: ICD10 Diagnosis Term Slusher 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 Urinary tract infection, site not specified 04/29/20 08 Backache 06/02/2007 Overview: Lower back pain ICD10 Diagnosis Term Slusher 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 Pain in joint 06/02/2007 Overview: ICD10 Diagnosis Term Slusher 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 Cervicalgia 06/02/2007 Myalgia and myositis 06/02/2007 Overview: Bilateral trapezius pain ICD10 Diagnosis Term Slusher 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 Absence of menstruation 04/25/2007 Anemia 03/25/2007 Overview: ICD10 Diagnosis Term Slusher 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 Helicobacter pylori infection 06/11/2006 Overview: ICD10 Diagnosis Term Slusher 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 Acute peptic ulcer 06/11/2006 Overview: ICD10 Diagnosis Term Slusher 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 Abdominal pain 04/25/2006 Overview: ICD10 Diagnosis Term Slusher 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 Ankylosing spondylitis 04/25/2006 Vaginitis and vulvovaginitis 04/25/2006 Overview: ICD10 Diagnosis Term Slusher 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 Other, mixed, or unspecified nondependent drug abuse, continuous 11/30/2005 documented as of this encounter (statuses as of 02/06/2019) Resolved Problems Problem Noted Date Resolved Date Arm laceration, right, subsequent encounter 04/13/2014 04/13/2014 Syncope and collapse 02/27/2007 06/28/2014 Bipolar I disorder, most recent episode (or current) unspec ified 01/03/2007 01/23/2018 Overview: Dr. 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 11/30/2005 02/11/2018 Overview: ICD10 Diagnosis Term Slusher 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 documented as of this encounter (statuses as of 02/06/2019) Immunizations Name Administration Dates Next Due Influenza [...] Description Date Type Specialty Jess Tovar MD [address] [place] [address] 02/11/2019 Office Visit Neurology Carley Villarreal MD [address] [place] [address] [phone] 02/18/2019 Appointment Electroneurodiagnos tic Obed Omar Dominic, DO [address] [place] [address] [phone], Jennifer Adult Infusion Nurse 02/20/2019 Nurse Visit Infusion Therapy Rosario Joseph MD [address] [place] [address] [phone] 03/04/2019 Office Visit Pulmonary Disease TaiwophilipOmar, DO [address] [place] [address] [phone] 03/05/2019 Office Visit Rheumatology Asher Dexter MD [address] [place] [address] 753185 Hematemesis with nausea 03/06/2019 Hospital Surgery Encounter GoAsher finch MD [address] [place], [place] 6[address] COLONOSCOPY 03/06/2019 Surgery Surgery Ann-Marie Johnson MD [address] [place] [address] [phone] 03/13/2019 Office Visit Family Medicine Jess Tovar MD [address] [place] [address] 159853 03/13/2019 Office [place] [address] [place] [address] 03/19/2019 Office Visit Family Medicine TaiwophilipOmar, DO [address] [place] [address] [phone], Jennifer Adult Infusion Nurse 04/17/2019 Nurse Visit Infusion Therapy Sebastian Doe [address] [facility] [address] [place] [address] [phone] 04/30/2019 Office Visit Pain Medicine Ginny Oneal MD [address] [place] [address]. [place] [phone] 06/09/2019 Office Visit Gastroenterology Omar Clay, DO [address] [place] [address] [phone], Jennifer Adult Infusion Nurse 06/12/2019 Nurse [...] Head, Donal Uhr Bipolar BIPOLAR Right: Hip [place] 74s38kg #Uh1-44-28 - S0 head Implanted: Qty: 1 on 09/18/2017 by Sebastian Bunn MD at [facility] 07/07/2021 1023-12 / [id number] / [id number] Cancellous Cubes, Community Tissue BONE Right: Hip [facility] Services Freeze Dried 30 Cc Tissue #1023-12 - [id number] Services Implanted: Qty: 1 on 09/18/2017 by Sebastian Bunn MD at [facility] 03/08/2018 2018-40 / [id number] / [id number] Dbm Putty Maxxeus 10cc Cts #2018-40 BONE Right: Hip [facility] - [id number] Tissue Implanted: Qty: 1 on 09/18/2017 by Services Sebastian Bunn MD at [facility] 04/07/2022 1365-28-720 / 0 / [id number] Delta Ceramic Femoral Head 28mm +5 Head Right: Hip Depuy 06/21 Taper Depuy Ref#[id number] Synthes Implanted: Qty: 1 on 09/18/2017 by Sebastian Bunn MD at [facility] 03/29/2022 623-00-44F / 0 / [id number] Insert, Donal Trident 0deg 44mm Liner Right: Hip [place] #623-00-44f Implanted: Qty: 1 on 09/18/2017 by Sebastian Bunn MD at [facility] 04/24/2022 5260-5-050 / 0 / [id number] Screw Osteolock [address] SCREW Right: Hip Donal Cancellous 50mm [place] Ref#5260-5-050 Implanted: Qty: 2 on 09/18/2017 by Sebastian Bunn MD at [facility] 06/01/2022 5260-5-020 / 0 / [id number] Screw Ostelock 3.[address] SCREW Right: Hip Donal Cancellous 20mm [place] Ref#5260-5-020 Implanted: Qty: 1 on 09/18/2017 by Sebastian Bunn MD at [facility] 06/01/2022 5260-5-016 / 0 / [id number] Screw Osteolock 3.[address] SCREW Right: Hip Donal Cancellous 18mm Donal Ref#[id number] Implanted: Qty: 1 on 09/18/2017 by Sebastian Bunn MD at [facility] 01/02/2022 509-02-60F / 0 / [id number] Shell, Donal Tritanium Revision Shell Right: Hip Donal Acetabular #509-02-60f - S0 Implanted: Qty: 1 on 09/18/2017 by Sebastian Bunn MD at [facility] documented as of this encounter Results Not on filedocumented in this encounter Insurance Type Payer Benefit Subscriber ID Effective Phone Address Plan / Dates Group Medicare Adv HMO [facility] [id number] 2018- MANAGED MEDICARE HEALTHCARE Present DUAL COMPLETE HMO [facility] [employer] [id number] 2018- P O BOX SOLUTIONS H Present [address] [place] [address] documented as of this encounter Advance Directives Patient Cafe Or Restaurant Manager Explanation Type Date Recorded 0 Advance Directives 08/08/2013 8:00 AM and Living Will Power of Editor [employer] 08/08/2013 8:00 AM
--- OUTSIDE RECORDS SUMMARY | 2019-12-13 15:26 | XMS REPORT | Summary of Care ---
Author Author [facility] - Health Organization [facility] - Health Address Unknown Phone Unavailable Care Team Providers Care Small Business Banking Officer Name Role Phone Ovidio Clarke MD PCP Reason for Visit * Reason Comments Assessment Encounter Details Care Team Description Date Type Department Ginny Oneal MD [address] [place] [address]. [place] [address] Assessment 02/10/2019 Telephone [facility] [address] [facility] [address] [place] [address] Allergies Comments Active Allergy Reactions [...] colon Overview: Added automatically from request for [employer] [id number] Cervical spondylosis with radiculopathy 01/01/2019 Overview: Added automatically from request for marquez [email or web address] [id number] Mixed hyperlipidemia 08/13/2018 Overview: LDL 140 07/17/2018 Left tennis elbow 06/17/2018 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 Overview: R Avulsion fracture of lateral epicondyle of humerus 0 11/14/2017 Painful patella, unspecified laterality 11/05/2017 S/P revision of total hip 09/18/2017 Colon cancer screening 05/24/2017 Overview: Added automatically from request for [employer] [id number] Hematemesis with nausea 05/24/2017 Overview: Added automatically from request for marquez [email or web address] [id number] Nausea and vomiting, intractability of vomiting not s pecified, unspecified 05/24/2017 vomiting type Overview: Added automatically from request for jimmy solorio [id number] ANJELICA (obstructive sleep apnea) 05/10/2017 Obesity (BMI 30-39.9) 05/01/2017 Microhematuria 02/14/2017 Complex tear of medial meniscus of right knee as curr ent injury, initial 01/18/2017 encounter Overview: Added automatically from request for jimmy solorio [id number] Elevated MCV 07/25/2016 Overview: 103.4 07/22/2016 Muscle [...] lobe nodular opacitiy on chest xray at [facility] 05/22/2015 Hiatus hernia syndrome 04/09/2015 Overview: EGD 03/23/2015 [facility] [place] 01/06/2015 Immunization deficiency 10/09/2014 Overview: [...] lower leg 11/25/2013 Overview: ICD10 Diagnosis Term Enlisted Aircrew/Aerial Observer/Gunner Utility Knee crepitus 11/25/2013 Genu valgum, acquired 11/25/2013 Overview: ICD10 Diagnosis Term Enlisted Aircrew/Aerial Observer/Gunner Utility Patellofemoral misalignment with pain 11/25/2013 Primary [...] 11/16/2010 Headache 04/08/2010 Overview: ICD10 Diagnosis Term Enlisted Aircrew/Aerial Observer/Gunner Utility Nonerosive nonspecific gastritis 04/08/2010 Overview: EGD Dr. Lloyd Glossitis 02/23/2010 Tobacco use disorder 02/23/2010 Menorrhagia 05/19/2009 Vision blurred 05/19/2009 Acute upper respiratory infection 08/14/2008 Overview: ICD10 Diagnosis Term Enlisted Aircrew/Aerial Observer/Gunner Utility Acute pharyngitis 08/14/2008 Screening for malignant neoplasm of cervix 9 Overview: ICD10 Diagnosis Term Enlisted Aircrew/Aerial Observer/Gunner Utility Breast screening 07/16/2008 Overview: ICD10 Diagnosis Term Enlisted Aircrew/Aerial Observer/Gunner Utility Urinary tract infection, site not specified 04/29/20 08 Backache 06/02/2007 Overview: Lower back pain ICD10 Diagnosis Term Enlisted Aircrew/Aerial Observer/Gunner Utility Pain in joint 06/02/2007 Overview: ICD10 Diagnosis Term Enlisted Aircrew/Aerial Observer/Gunner Utility Cervicalgia 06/02/2007 Myalgia and myositis 06/02/2007 Overview: Bilateral trapezius pain ICD10 Diagnosis Term Enlisted Aircrew/Aerial Observer/Gunner Utility Absence of menstruation 04/25/2007 Anemia 03/25/2007 Overview: ICD10 Diagnosis Term Enlisted Aircrew/Aerial Observer/Gunner Utility Helicobacter pylori infection 06/11/2006 Overview: ICD10 Diagnosis Term Enlisted Aircrew/Aerial Observer/Gunner Utility Acute peptic ulcer 06/11/2006 Overview: ICD10 Diagnosis Term Enlisted Aircrew/Aerial Observer/Gunner Utility Abdominal pain 04/25/2006 Overview: ICD10 Diagnosis Term Enlisted Aircrew/Aerial Observer/Gunner Utility Ankylosing spondylitis 04/25/2006 Vaginitis and vulvovaginitis 04/25/2006 Overview: ICD10 Diagnosis Term Enlisted Aircrew/Aerial Observer/Gunner Utility Other, mixed, or unspecified nondependent drug [...] eatures 11/30/2005 02/11/2018 Overview: ICD10 Diagnosis Term Enlisted Aircrew/Aerial Observer/Gunner Utility documented as of this encounter (statuses [...] Description Date Type Specialty Jess Tovar MD [address] [place] [address] [phone] 02/11/2019 Office Visit Neurology Carley Villarreal MD [address] [place] [address] [phone] 02/18/2019 Appointment Electroneurodiagnos tic Omar Clay, DO [address] [place] [address] [phone], Jennifer Adult Infusion Nurse 02/20/2019 Nurse Visit Infusion Therapy Rosario Joseph MD [address] [place] [address] [phone] 03/04/2019 Office Visit Pulmonary Disease Obed Omar Dominic, DO [address] [place] [address] 228[address] [phone] 03/05/2019 Office Visit Rheumatology Asher Dexter MD [address] [place] [address] 450915 Hematemesis with nausea 03/06/2019 Hospital Surgery Encounter Asher Dexter MD [address] [place], [place] 4407[address] COLONOSCOPY 03/06/2019 Surgery Surgery Ann-Marie Johnson MD [address] [place] [address] [phone] 03/13/2019 Office Visit Family Medicine Jess Tovar MD [address] [place] [address] [phone] 03/13/2019 Office [place] [address] [place] [address] 03/19/2019 Office Visit Family Medicine TaiwophilipOmar, DO [address] [place] [address] [phone] 3, Jennifer Adult Infusion Nurse 04/17/2019 Nurse Visit Infusion Therapy Sebastian Doe [address] [facility] [address] [place] [address] [phone] 04/30/2019 Office Visit Pain Medicine Ginny Oneal MD [address] [place] [address]. [place] [phone] 06/09/2019 Office Visit Gastroenterology Omar Clay, DO [address] [place] [address] [phone], Jennifer Adult Infusion Nurse 06/12/2019 Nurse [...] UH1-44-28 / 0 / [id number] Bipolar Head, [place] Uhr Bipolar BIPOLAR Right: Hip Donal [id number] #Uh1-44-28 - S0 head Implanted: Qty: 1 on 09/18/2017 by Sebastian Bunn MD at [facility] 07/07/2021 1023-12 / [id number] / [id number] Cancellous Cubes, Community Tissue BONE Right: Hip [facility] Services Freeze Dried 30 Cc Tissue #1023-12 - [id number] Services Implanted: Qty: 1 on 09/18/2017 by Sebastian Bunn MD at [facility] 03/08/2018 2018-40 / [id number] / [id number] Dbm Putty Maxxeus 10cc Cts #2018-40 BONE Right: Hip [facility] - [id number] Tissue Implanted: Qty: 1 on 09/18/2017 by Services Sebastian Bunn MD at [facility] 04/07/2022 1365-28-720 / 0 / [id number] Delta Ceramic Femoral Head 28mm +5 Head Right: Hip Depuy 06/21 Taper Depuy Ref#1365-28-720 Synthes Implanted: Qty: 1 on 09/18/2017 by Sebastian Bunn MD at [facility] 03/29/2022 623-00-44F / 0 / [id number] Insert, Donal Trident 0deg 44mm Liner Right: Hip Donal #623-00-44f Implanted: Qty: 1 on 09/18/2017 by Sebastian Bunn MD at [facility] 04/24/2022 5260-5-050 / 0 / [id number] Screw Osteolock 3.[address] SCREW Right: Hip [place] Cancellous 50mm Donal Ref#5260-5-050 Implanted: Qty: 2 on 09/18/2017 by Sebastian Bunn MD at [facility] 06/01/2022 5260-5-020 / 0 / [id number] Screw Ostelock 3.[address] SCREW Right: Hip Donal Cancellous 20mm [place] Ref#5260-5-020 Implanted: Qty: 1 on 09/18/2017 by Sebastian Bunn MD at [facility] 06/01/2022 5260-5-016 / 0 / [id number] Screw Osteolock 3.[address] SCREW Right: Hip [place] Cancellous 18mm Donal Ref#[id number] Implanted: Qty: 1 on 09/18/2017 by Sebastian Bunn MD at [facility] 01/02/2022 509-02-60F / 0 / [id number] Shell, [place] Tritanium Revision Shell Right: Hip Donal Acetabular #509-02-60f - S0 Implanted: Qty: 1 on 09/18/2017 by Sebastian Bunn MD at [facility] documented as of this encounter Results Not on filedocumented in this encounter Insurance Type Payer Benefit Subscriber ID Effective Phone Address Plan / Dates Group Medicare Adv O [facility] [id number] 2018- MANAGED MEDICARE HEALTHCARE Present DUAL COMPLETE HMO [facility] [employer] [id number] 2018- P O BOX SOLUTIONS Present [address] [place] [address] [facility] MEDICAID xxxxxxxxx 2019-P [phone] [place] [facility] [address] [place] [address] documented as of this encounter Advance Directives Patient Pantograph Operator Explanation Type Date Recorded 0 Advance Directives 08/08/2013 8:00 AM and Living Will Power of Stoner Hand 08/08/2013 8:00 AM
--- OUTSIDE RECORDS SUMMARY | 2019-12-13 15:26 | XMS REPORT | Summary of Care ---
Author Author [facility] Address Unknown Phone Unavailable Care Team Providers Care [employer] Equipment Tender Name Role Phone Ovidio Clarke MD PCP Reason for Referral * Radiology Services (Routine) Referred By Contact Referred To Contact Status Reason Specialty Diagnoses / Procedures Frida Rose, [address] [address] Closed Diagnostic Diagnoses Radiology Vaginal odor P rocedures US PELVIS COMPLETE WITH TRANSVAGINAL Reason for Visit * Reason Comments Vaginal Problem Encounter Details Care Team Description Date Type Department Frida Rose [address] [address] Vaginal odor (Primary Dx) 01/27/2019 Office Visit [facility], [address], [address] [place] [address] Allergies Comments Active Allergy Reactions Severity Noted Date Aspirin Hives 03/21/2012 Sulfa (Sulfonamide Hives 11/29/2005 Antibiotics) documented as of this encounter (statuses as of 02/11/2019) Medications End Date Status Medication Sig Dispensed Refills Start Date Active hydroCHLOROthiazide 12.5 Take 1 30 capsule 11 0 11/14/201 mg capsuleIndications: capsule by 8 Ankylosing spondylitis, [...] mouth 9 tabletIndications: daily. Insomnia, unspecified type 01/29/2019 Discontinued Diclofenac Sodium APPLY TO THE 100 g 0 01 (VOLTAREN) 1 % AFFECTED AREA 9 gelIndications: Painful FOUR TIMES patella, unspecified DAILY laterality, Primary NEEDED FOR localized osteoarthrosis, PAIN lower leg, unspecified laterality, Muscle weakness of lower extremity, Effusion of lower leg joint, Knee crepitus, unspecified laterality, Patellofemoral instability of right knee with pain 02/01/2019 metroNIDAZOLE 0.75 % Insert 1 5 Tube 3 01/27 vaginal gelIndications: Applicator 9 Vaginal odor into vagina at bedtime for 5 days. Then continue twice weekly for 4 months Status Hospital, Clinic, or Ordered Dose Route Frequency Start End Date Other Facility Date Administered Medication Active lactated ringers IV 1000 mL IV Infusion CONTINUOUS infusion 1,000 mL 19 documented as of this encounter (statuses as of 02/11/2019) Active Problems Problem Noted Date Special screening for malignant neoplasms, colon Overview: Added automatically from request for jimmy solorio [id number] Cervical spondylosis with radiculopathy 01/01/2019 Overview: Added automatically from request for jimmy solorio [id number] Mixed hyperlipidemia 08/13/2018 Overview: LDL 140 07/17/2018 Left tennis elbow 06/17/2018 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 Overview: R Avulsion fracture of lateral epicondyle of humerus 0 11/14/2017 Painful patella, unspecified laterality 11/05/2017 S/P revision of total hip 09/18/2017 Colon cancer screening 05/24/2017 Overview: Added automatically from request for jimmy solorio [id number] Hematemesis with nausea 05/24/2017 Overview: Added automatically from request for jimmy solorio [id number] Nausea and vomiting, intractability of vomiting not s pecified, unspecified 05/24/2017 vomiting type Overview: Added automatically from request for jimmy solorio [id number] ANJELICA (obstructive sleep apnea) 05/10/2017 Obesity (BMI 30-39.9) 05/01/2017 Microhematuria 02/14/2017 Complex tear of medial meniscus of right knee as curr ent injury, initial 01/18/2017 encounter Overview: Added automatically from request for jimmy solorio [id number] Elevated MCV 07/25/2016 Overview: 103.4 07/22/2016 Muscle [...] lobe nodular opacitiy on chest xray at [facility] 05/22/2015 Hiatus hernia syndrome 04/09/2015 Overview: EGD 03/23/2015 [facility] Other screening mammogram 01/06/2015 Immunization deficiency 10/09/2014 Overview: [...] lower leg 11/25/2013 Overview: ICD10 Diagnosis Term [employer] Knee crepitus 11/25/2013 Genu valgum, acquired 11/25/2013 Overview: ICD10 Diagnosis Term [employer] Patellofemoral misalignment with pain 11/25/2013 Primary [...] 11/16/2010 Headache 04/08/2010 Overview: ICD10 Diagnosis Term [employer] Nonerosive nonspecific gastritis 04/08/2010 Overview: EGD Dr. Lloyd Glossitis 02/23/2010 Tobacco use disorder 02/23/2010 Menorrhagia 05/19/2009 Vision blurred 05/19/2009 Acute upper respiratory infection 08/14/2008 Overview: ICD10 Diagnosis Term [employer] Acute pharyngitis 08/14/2008 Screening for malignant neoplasm of cervix Overview: ICD10 Diagnosis Term [employer] Breast screening 07/16/2008 Overview: ICD10 Diagnosis Term [employer] Urinary tract infection, site not specified 04/29/20 08 Backache 06/02/2007 Overview: Lower back pain ICD10 Diagnosis Term [employer] Pain in joint 06/02/2007 Overview: ICD10 Diagnosis Term [employer] Cervicalgia 06/02/2007 Myalgia and myositis 06/02/2007 Overview: Bilateral trapezius pain ICD10 Diagnosis Term [employer] Absence of menstruation 04/25/2007 Anemia 03/25/2007 Overview: ICD10 Diagnosis Term [employer] Helicobacter pylori infection 06/11/2006 Overview: ICD10 Diagnosis Term [employer] Acute peptic ulcer 06/11/2006 Overview: ICD10 Diagnosis Term [employer] Abdominal pain 04/25/2006 Overview: ICD10 Diagnosis Term [employer] Ankylosing spondylitis 04/25/2006 Vaginitis and vulvovaginitis 04/25/2006 Overview: ICD10 Diagnosis Term [employer] Other, mixed, or unspecified nondependent drug [...] eatures 11/30/2005 02/11/2018 Overview: ICD10 Diagnosis Term [employer] documented as of this encounter (statuses [...] Signs Reading Time Taken Comments Vital Sign 119/74 01/27/2019 1:22 PM CDT Blood Pressure 96 01/27/2019 1:22 PM CDT Pulse - - Temperature - - Respiratory Rate - - Oxygen Saturation - - Inhaled Oxygen Concentration 88 kg (194 lb) 01/27/2019 1:22 PM CDT Weight 165.1 cm (5' 5") 01/27/2019 1:22 PM CDT Height 32.28 01/27/2019 1:22 PM CDT Body Mass Index documented in this encounter Progress Notes * Frida Rose Adair, - 01/27/2019 1:00 PM CDT Chief complaint: Chief Complaint Patient presents with Vaginal Problem Patient is a 53 year-old here for persistent vaginal odor. Patient was seen 01/07/19 for same complaint. Affirm swab showed +BV and yeast and she was treated. Patient report she saw an improvement in the odor but then it came back. She a lso reports intermittent left sided abdominal pain. She went to the ER for this pain on 01/20/19. CT scan was negative and urine culture was negative. She was to ld to follow-up outpatient. Patient feels frustrated that nothing is being done for her pain and no one seems to believe her about the persistent odor even thou gh she had a positive test at her last visit here. She is tried of taking antibi otics because she takes so much medications as it is. Histories OB History Para Term AB Living [...] 02/11/2012 Hiatus hernia syndrome 04/09/2015 EGD 03/23/2015 [facility] Immunization deficiency 10/09/2014 She is NOT immune to varicella zoster. Knee pain, right 10/10/2013 Laceration of arm, right, initial encounter 04/13/2014 MAC complex 11/08/2015 Meniscus tear 01/12/2014 R Menorrhagia 05/19/2009 Microhematuria 02/14/2017 Mixed hyperlipidemia 08/13/2018 LDL 140 07/17/2018 Mycobacterium avium complex 08/20/2015 Mycobacterium avium infection 08/20/2015 Nonerosive nonspecific gastritis 04/08/[address] Gabino DEJESUS (obstructive sleep apnea) Other abnormality of red [...] Right 01/06/2014 Surgeon: Girish Fountain MD; [facility] ARTHROSCOPIC MENISCAL REPAIR Right 01/06/2014 Surgeon: Girish Fountain MD; Location: [facility] OR LOCATION CERVICAL EPIDURAL STEROID INJECTION 03/26/2012 Surgeon: Maged Franklin MD PHD; Location: [facility] OR LOCATION CERVICAL EPIDURAL STEROID INJECTION N/A 01/23/2019 Surgeon: Sebastian Doe; Location: [facility] OR Location COLONOSCOPY N/A 06/22/2015 Surgeon: Arian To MD; [facility] EGD (ENDO) 03/23/2015 [facility] ESOPHAGOGASTRODUODENOSCOPY 04/13 ulcers ESOPHAGOGASTRODUODENOSCOPY 06/15 ESOPHAGOGASTRODUODENOSCOPY 10/07/2009 mild nonerosive gastritis ESOPHAGOGASTRODUODENOSCOPY N/A 06/22/2015 Surgeon: Arian To MD; Location: [facility] OR LOCATION FLEXIBLE BRONCHOSCOPY 05/24/2015 Magui Hogan HIP HEMIARTHROPLASTY 2001 Right KNEE ARTHROSCOPY Right 01/06/2014 Surgeon: Girish Fountain MD; Location: [facility] MD ARTHRS KNE SURG W/MENISCECTOMY MED/LAT W/SHVG 01/06/2014 MD KNEE SCOPE,REMV LOOSE BODY 01/06/2014 TOTAL HIP ARTHROPLASTY REVISION Right 09/18/2017 Surgeon: Sebastian Bnun MD; [facility] Social History Socioeconomic History Marital status: Single [...] file Gets together: Not on file Attends confucianism service: Not on file Active member of [...] Substance and Sexual Activity Sexual Activity Never Labs Affirm 01/07/19: +BV and +yeast Radiology EXAM: CT ABDOMEN AND PELVIS WITHOUT CONTRAST HISTORY: 53-year-old female with flank pain PELVIS/BLADDER: The urinary bladder is unremarkable. The uterus is not Visualized. IMPRESSION 1. No evidence of nephrolithiasis or hydronephrosis. 2. Bone findings suggest ankylosing spondylitis. Allergies Juan is allergic to aspirin and sulfa (sulfonamide antibiotics). Medications Juan has a current medication list which includes the following prescription(s ): desvenlafaxine succinate, paliperidone, zolpidem, acetaminophen-codeine, prom ethazine, ibuprofen, omeprazole, ondansetron, voltaren, gabapentin, cyclobenzapr ine, diclofenac sodium, esomeprazole, hydrocodone-acetaminophen, methotrexate, m iconazole, folic acid, azithromycin, ethambutol, rifampin, ventolin hfa, and hyd rochlorothiazide, and the following Facility-Administered Medications: lactated ringers. Review of Systems Constitutional: Negative. Respiratory: Negative. Breasts: Negative. Cardiovascular: Negative. Gastrointestinal: Positive for abdominal pain. Intermittent, left side, not current Genitourinary: Vaginal odor Musculoskeletal: Negative. Skin: Negative. Neurological: Negative. BP 119/74 | Pulse 96 | Ht 5' 5" (1.651 m) | Wt 194 lb (88 kg) | LMP 11/09/19 10 | BMI 32.28 kg/m Pregravid BMI: Could not be calculated Physical Exam Vitals reviewed. Constitutional: She is oriented to person, place, and time. She appears well-dev eloped and well-nourished. Pulmonary/Chest: Normal inspiratory effort. Abdominal: Abdomen is soft. No mass palpated. No tenderness present. There is no guarding. Neuro/Psychiatric: She is oriented to person, place, and time. Skin: Skin normal. No rash present. Assessment/Plan Vaginal odor (primary encounter diagnosis) Comment: recent treatment for BV/yeast Plan: -plan to repeat Affirm swab and exam but patient declines exam, as she is tired of doing these -discussed presumptive retreatment with extended course of Metrogel and patient does want to try that -will order pelvic us to further assess her pain, discussed that nothing was see n on CT scan last week -follow up as needed documented in this encounter Plan of Treatment Care Team Description Date Type Specialty Jess Tovar MD [address] [place] [address] [phone] 02/11/2019 Office Visit Neurology Carley Villarreal MD [address] [place] [id number] [place] [address] [phone] 02/18/2019 Appointment Electroneurodiagnos tic Omar Clay DO [address] [place] [address] [phone] Jennifer Eldridge Adult Infusion Nurse 02/20/2019 Nurse Visit Infusion Therapy Rosario Joseph MD [address] [place] [phone] 03/04/2019 Office Visit Pulmonary Disease Omar Clay DO [address] [place] [address] [phone] 03/05/2019 Office Visit Rheumatology GoAsher finch MD [address] [place] [address] [phone] Hematemesis with nausea 03/06/2019 Hospital Surgery Encounter Asher Dexter MD [address] [place] [address] [phone] COLONOSCOPY 03/06/2019 Surgery Surgery Ann-Marie Johnson MD [address] [place] [address] [phone] 03/13/2019 Office Visit Family Medicine Jess Tovar MD [address] [place] [address] [phone] 03/13/2019 Office [place] [address] [place] [address] 03/19/2019 Office Visit Family Medicine Omar Clay DO [address] [place] [address] [phone], Jennifer Adult Infusion Nurse 04/17/2019 Nurse Visit Infusion Therapy Sebastian Doe [address] [place] [address] [id number] [place], [place] [phone] 04/30/2019 Office Visit Pain Medicine Ginny Oneal MD [address] [place] [address]. [place] [address] 06/09/2019 Office Visit Gastroenterology Omar Clay DO [address] [place] [address] [phone], Jennifer Adult Infusion Nurse 06/12/2019 Nurse [...] Head, Donal Uhr Bipolar BIPOLAR Right: Hip [place] 53m07qt #[id number] - S0 head Implanted: Qty: 1 on 09/18/2017 by Sebastian Bunn MD at [facility] 07/07/2021 1023-12 / [id number] / [id number] Cancellous Cubes, Community Tissue BONE Right: Hip [facility] Services Freeze Dried 30 Cc Tissue #1023-12 - [id number] Services Implanted: Qty: 1 on 09/18/2017 by Sebastian Bunn MD at [facility] 03/08/20182017-40 / [id number] / [id number] Dbm Putty Maxxeus 10cc Cts #[id number] BONE Right: Hip [facility] - [id number] Tissue Implanted: Qty: 1 on 09/18/2017 by Services Sebastian Bunn MD at [facility] 04/07/2022 [id number] / 0 / [id number] Delta Ceramic Femoral Head 28mm +5 Head Right: Hip Depuy 06/21 Taper Depuy Ref#[id number] Synthes Implanted: Qty: 1 on 09/18/2017 by Sebastian Bunn MD at [facility] 03/29/2022 [id number] / 0 / [id number] Insert, [place] Trident 0deg 44mm Liner Right: Hip [place] #[id number] Implanted: Qty: 1 on 09/18/2017 by Sebastian Bunn MD at [facility] 04/24/2022 5260-5-050 / 0 / [id number] Screw Osteolock 3.[address] SCREW Right: Hip [place] Cancellous 50mm Donal Ref#[id number] Implanted: Qty: 2 on 09/18/2017 by Sebastian Bunn MD at [facility] 06/01/2022 5260-5-020 / 0 / [id number] Screw Ostelock 3.[address] SCREW Right: Hip [place] Cancellous 20mm [place] Ref#[id number] Implanted: Qty: 1 on 09/18/2017 by Sebastian Bunn MD at [facility] 06/01/2022 5260-5-016 / 0 / [id number] Screw Osteolock 3.[address] SCREW Right: Hip [place] Cancellous 18mm Donal Ref#[id number] Implanted: Qty: 1 on 09/18/2017 by Sebastian Bunn MD at [facility] 01/02/2022 [id number] / 0 / [id number] Shell, [place] Tritanium Revision Shell Right: Hip Donal Acetabular #[id number] - S0 Implanted: Qty: 1 on 09/18/2017 by Sebastian Bunn MD at [facility] documented as of this encounter Results * US PELVIS COMPLETE WITH TRANSVAGINAL (02/05/2019 10:20 AM CDT) Specimen Impressions Performed At 1.The uterus is surgically absent. PACS/VR/DOSE 2.The ovaries are within normal brasher its. I, Ksenia Lorenzo MD., have reviewed this study and agree with the above report. Narrative Performed At TRANSABDOMINAL AND TRANSVAGINAL PELVIC ULTRASOUND PA CS/VR/DOSE HISTORY: 53-year-old female with left p elvic pain TECHNIQUE: Survey transabdominal and tr ansvaginal ultrasound imaging of the pelvis was performed including color Do ppler evaluation with sales representative groceries images obtained. Spectral Doppler evalu ation of both ovaries was also performed. COMPARISON:Ultrasound pelvic 006. FINDINGS: The uterus is surgically absent. Both ovaries are normal in size and ech otexture.The right ovary measures 1.6 cc and the left ovary measures 0.6 cc. Spectral Doppler reveals normal arterial and venous flow in both ovarie s. The urinary bladder is unremarkable. No fluid is present in the cul-de-sac. Procedure Note [facility], Radiant Results Inft User - 02/05/2019 11:49 AM CDT TRANSABDOMINAL AND TRANSVAGINAL PELVIC ULTRASOUND HISTORY: 53-year-old female with left pelvic pain TECHNIQUE: Survey transabdominal and transvaginal ultrasound imaging of the pelvis was performed including color Doppler evaluation with sales representative groceries images obtained. Spectral Doppler evaluation of both ovaries was also performed. COMPARISON: Ultrasound pelvic 09/15/2005. FINDINGS: The uterus is surgically absent. Both ovaries are normal in size and echotexture. The right ovary measures 1.6 cc and the left ovary measures 0.6 c c. Spectral Doppler reveals normal arterial and venous flow in both ovaries. The urinary bladder is unremarkable. No fluid is present in the cul-de-sac. IMPRESSION 1. The uterus is surgically absent. 2. The ovaries are within normal limits . IKsenia MD., have reviewed this study and agree with the above report. Performing Organization Address City/State/Zip[place] Ph one Number PACS/VR/DOSE documented in this encounter Visit Diagnoses Diagnosis Vaginal odor - Primary Unspecified symptom associated with fem darrian genital organs documented in this encounter Insurance Type Payer Benefit Subscriber ID Effective Phone Address Plan / Dates Group Medicare Adv O [place] [employer] [place] [id number] 2018- MANAGED MEDICARE HEALTHCARE Present DUAL COMPLETE HMO documented as of this encounter Advance Directives Patient Client Services Vice President Explanation Type Date Recorded 0 Advance Directives 08/08/2013 8:00 AM and Living Will Power of Pattern Cutter 08/08/2013 8:00 AM
--- OUTSIDE RECORDS SUMMARY | 2019-12-13 15:26 | XMS REPORT | Summary of Care ---
Author Author [facility] - Health Organization [facility] - Health Address Unknown Phone Unavailable Care Team Providers Care Microsoft Dynamics Consultant Name Role Phone Ovidio Clarke MD PCP Reason for Visit * Reason Comments Follow-up E.R. follow up left flank p ain * (ALEKSANDR) Referred By Contact Referred To Contact Status Reason Specialty Diagnoses / [place] [address] [place] [address] Closed Gastroenterology Diagnoses Hematemesis with nausea P rocedures CONSULT/REFERRAL GASTROENTEROLOGY Encounter Details Care Team Description Date Type Department Homero Ding [address] [place] [address] [id number] [place], [place] [id number] Ginny Oneal MD [address] [place] [address]. 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 Overview: R Avulsion fracture of lateral epicondyle of humerus 0 11/14/2017 Painful patella, unspecified laterality 11/05/2017 S/P revision of total hip 09/18/2017 Colon cancer screening 05/24/2017 Overview: Added automatically from request for jimmy solorio [id number] Hematemesis with nausea 05/24/2017 Overview: Added automatically from request for jimmy solorio [id number] Nausea and vomiting, intractability of vomiting not s pecified, unspecified 05/24/2017 vomiting type Overview: Added automatically from request for jimmy solorio [id number] ANJELICA (obstructive sleep apnea) 05/10/2017 Obesity (BMI 30-39.9) 05/01/2017 Microhematuria 02/14/2017 Complex tear of medial meniscus of right knee as curr ent injury, initial 01/18/2017 encounter Overview: Added automatically from request for jimmy solorio [id number] Elevated MCV 07/25/2016 Overview: 103.4 07/22/2016 Muscle [...] lobe nodular opacitiy on chest xray at [facility] 05/22/2015 Hiatus hernia syndrome 04/09/2015 Overview: EGD 03/23/2015 [facility] screening mammogram 01/06/2015 Immunization deficiency 10/09/2014 [...] lower leg 11/25/2013 Overview: ICD10 Diagnosis Term Weighmaster Utility Knee crepitus 11/25/2013 Genu valgum, acquired 11/25/2013 Overview: ICD10 Diagnosis Term Weighmaster Utility Patellofemoral misalignment with pain 11/25/2013 Primary [...] 11/16/2010 Headache 04/08/2010 Overview: ICD10 Diagnosis Term Weighmaster Utility Nonerosive nonspecific gastritis 04/08/2010 Overview: EGD Dr. Lloyd Glossitis 02/23/2010 Tobacco use disorder 02/23/2010 Menorrhagia 05/19/2009 Vision blurred 05/19/2009 Acute upper respiratory infection 08/14/2008 Overview: ICD10 Diagnosis Term Weighmaster Utility Acute pharyngitis 08/14/2008 Screening for malignant neoplasm of cervix 9 Overview: ICD10 Diagnosis Term Weighmaster Utility Breast screening 07/16/2008 Overview: ICD10 Diagnosis Term Weighmaster Utility Urinary tract infection, site not specified 04/29/20 08 Backache 06/02/2007 Overview: Lower back pain ICD10 Diagnosis Term Weighmaster Utility Pain in joint 06/02/2007 Overview: ICD10 Diagnosis Term Weighmaster Utility Cervicalgia 06/02/2007 Myalgia and myositis 06/02/2007 Overview: Bilateral trapezius pain ICD10 Diagnosis Term Weighmaster Utility Absence of menstruation 04/25/2007 Anemia 03/25/2007 Overview: ICD10 Diagnosis Term Weighmaster Utility Helicobacter pylori infection 06/11/2006 Overview: ICD10 Diagnosis Term Weighmaster Utility Acute peptic ulcer 06/11/2006 Overview: ICD10 Diagnosis Term Weighmaster Utility Abdominal pain 04/25/2006 Overview: ICD10 Diagnosis Term Weighmaster Utility Ankylosing spondylitis 04/25/2006 Vaginitis and vulvovaginitis 04/25/2006 Overview: ICD10 Diagnosis Term Weighmaster Utility Other, mixed, or unspecified nondependent drug [...] eatures 11/30/2005 02/11/2018 Overview: ICD10 Diagnosis Term Weighmaster Utility documented as of this encounter (statuses [...] documented in this encounter Progress Notes * Ana Lilia Cadena LVN - 02/03/2019 2:00 PM CDT EGD and Colonoscopy ordered. Scheduled @ endoscopy unit on 03/06/[address] Dexter. Verbal and printed Golytely prep instructions given. List of medications to avoid prior to procedure explained. Patient verbalized understanding. Facility location and telephone provided. Patient to be contacted with arrival time . Wri tten consent has been obtained from patient by physician. Consent for procedure witnessed by Ana Lilia Cadena LVN * Homero Ding - 02/03/2019 2:00 PM CDT I have personally seen and examined the patient. I agree with the assessment an d recommendations as detailed in note by on 02/03/2019, and I was a p art of the decision making process. * Ginny Oneal MD - 02/03/2019 2:00 PM CDT Gastroenterology & Hepatology Clinic Note Date: 02/02/2019 CC/Referral reason: hematemesis Referred by: [place] [address] [place] [address] HPI: Juan Tinoco is a 53 year [...] Hiatus hernia syndrome 04/09/2015 EGD 03/23/2015 [facility] Immunization deficiency 10/09/2014 She is NOT immune [...] Girish Fountain MD; Location: [facility] ARTHROSCOPIC MENISCAL REPAIR Right 01/06/2014 Surgeon: Girish Fountain MD; Location: [facility] OR LOCATION CERVICAL EPIDURAL STEROID INJECTION 03/26/2012 Surgeon: Maged Franklin MD PHD; Location: [facility] OR LOCATION CERVICAL EPIDURAL STEROID INJECTION N/A 01/23/2019 Surgeon: Sebastian Doe; Location: [facility] OR Location COLONOSCOPY N/A 06/22/2015 Surgeon: Arian To MD; Location: [facility] OR LOCATION EGD (ENDO) 03/23/2015 [facility] [place] ESOPHAGOGASTRODUODENOSCOPY 04/13 ulcers ESOPHAGOGASTRODUODENOSCOPY 06/15 ESOPHAGOGASTRODUODENOSCOPY 10/07/2009 mild nonerosive gastritis ESOPHAGOGASTRODUODENOSCOPY N/A 06/22/2015 Surgeon: Arian To MD; Location: [facility] FLEXIBLE BRONCHOSCOPY 05/24/2015 Samira 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 HIP HEMIARTHROPLASTY 2001 Right KNEE ARTHROSCOPY Right 01/06/2014 Surgeon: Girish Fountain MD; Location: [facility] VT ARTHRS KNE SURG W/MENISCECTOMY MED/LAT W/SHVG 01/06/2014 [place] KNEE SCOPE,REMV LOOSE BODY 01/06/2014 TOTAL HIP ARTHROPLASTY REVISION Right 09/18/2017 Surgeon: Sebastian Bunn MD; [facility] TUBAL LIGATION 1987 Family Hx: Family History Problem Relation Age [...] file Gets together: Not on file Attends methodist service: Not on file Active member of [...] Oneal MD Gastroenterology and Hepatology Fellow Pager: [phone] PGY-5 documented in this encounter Plan of Treatment Care Team Description Date Type Specialty Frida Rose DO [address] [place] [address] [phone] 02/05/2019 Appointment Radiology Jess Tovar MD [address] [place] [address] [phone] 02/11/2019 Office Visit Neurology Omar Clay, [address] [place] [address] [phone], Jennifer Adult Infusion Nurse 02/20/2019 Nurse Visit Infusion Therapy Rosario Joseph MD [address] [place] [address] 03/04/2019 Office Visit Pulmonary Disease Omar Clay DO [address] [place] [address] [phone] 03/05/2019 Office Visit Rheumatology Ann-Marie Johnson MD [address] [address] [phone] 03/13/2019 Office Visit Family Medicine Jess Tovra MD [address] [place] [address] [id number] 03/13/2019 Office [place] [address] [place] [address] 03/19/2019 Office Visit Family Medicine Omar Clay DO [address] [place] [address] [phone], Jennifer Adult Infusion Nurse 04/17/2019 Nurse Visit Infusion Therapy Sebastian Doe [address] [facility] [id number] [place], [place] [address] 04/30/2019 Office Visit Pain Medicine Ginny Oneal MD [address] [place] [address]. [place] [address] 06/09/2019 Office Visit Gastroenterology Omar Clay, DO [address] [place] [address] [phone], Jennifer Adult Infusion Nurse 06/12/2019 Nurse [...] Donal Uhr Bipolar BIPOLAR Right: Hip Donal [id number] #Uh1-44-28 - S0 head Implanted: Qty: 1 on 09/18/2017 by Sebastian Bunn MD at [facility] 07/07/2021 1023-12 / [id number] / [id number] Cancellous Cubes, Community Tissue BONE Right: Hip [facility] Services Freeze Dried 30 Cc Tissue #1023-12 - [id number] Services Implanted: Qty: 1 on 09/18/2017 by Sebastian Bunn MD at [facility] 03/08/2018 2018-40 / [id number] / [id number] Dbm Putty Maxxeus 10cc Cts #2018-40 BONE Right: Hip [facility] - [id number] Tissue Implanted: Qty: 1 on 09/18/2017 by Services Sebastian Bunn MD at [facility] 04/07/2022 1365-28-720 / 0 / [id number] Delta Ceramic Femoral Head 28mm +5 Head Right: Hip Depuy 06/21 Taper Depuy Ref#[id number] Synthes Implanted: Qty: 1 on 09/18/2017 by Sebastian Bunn MD at [facility] 03/29/2022 623-00-44F / 0 / [id number] Insert, [place] Trident 0deg 44mm Liner Right: Hip Donal #623-00-44f Implanted: Qty: 1 on 09/18/2017 by Sebastian Bunn MD at [facility] 04/24/2022 5260-5-050 / 0 / [id number] Screw Osteolock 3.[address] SCREW Right: Hip [place] Cancellous 50mm [place] Ref#[id number] Implanted: Qty: 2 on 09/18/2017 by Sebastian Bunn MD at [facility] 06/01/2022 5260-5-020 / 0 / [id number] Screw Ostelock 3.[address] SCREW Right: Hip Donal Cancellous 20mm Donal Ref#[id number] Implanted: Qty: 1 on 09/18/2017 by Sebastian Bunn MD at [facility] 06/01/2022 5260-5-016 / 0 / [id number] Screw Osteolock 3.[address] SCREW Right: Hip Donal Cancellous 18mm Donal Ref#[id number] Implanted: Qty: 1 on 09/18/2017 by Sebastian Bunn MD at [facility] 01/02/2022 509-02-60F / 0 / [id number] Shell, [place] Tritanium Revision Shell Right: Hip [place] Acetabular #[id number] - S0 Implanted: Qty: 1 on 09/18/2017 by Sebastian Bunn MD at [facility] documented as of this encounter Results Not on filedocumented in this encounter Visit Diagnoses Diagnosis Special screening for malignant neoplas ms, colon - Primary Hematemesis with nausea documented in this encounter Insurance Type Payer Benefit Subscriber ID Effective Phone Address Plan / Dates Group Medicare Adv O [facility] [id number] 2018- MANAGED MEDICARE HEALTHCARE Present DUAL COMPLETE HMO documented as of this encounter Advance Directives Patient Phys Assistant Explanation Type Date Recorded 0 Advance Directives 08/08/2013 8:00 AM and Living Will Power of Assistant Portfolio Manager 08/08/2013 8:00 AM
--- OUTSIDE RECORDS SUMMARY | 2019-12-13 15:26 | XMS REPORT | Summary of Care ---
Author Author [facility] - Health Organization [facility] - Health Address Unknown Phone Unavailable Care Team Providers Care Seed Corn Manager Production Name Role Phone Ovidio Clarke MD PCP Encounter Details Care Team Description Date Type Department Doctor Unassigned, [place] [address] [place] [address] 02/03/2019 Orders Only [facility] [address] [place] [address] Allergies Comments Active Allergy Reactions Severity Noted Date Aspirin Hives 03/21/2012 Sulfa (Sulfonamide Hives 11/29/2005 Antibiotics) documented as of this encounter (statuses as of 02/04/2019) Medications End Date Status Medication Sig Dispensed [...] as of this encounter (statuses as of 02/04/2019) Active Problems Problem Noted Date Cervical spondylosis with radiculopathy 01/01/2019 Overview: Added automatically from request for [facility] [id number] Mixed hyperlipidemia 08/13/2018 Overview: LDL 140 07/17/2018 Left tennis elbow 06/17/2018 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 Overview: R Avulsion fracture of lateral epicondyle of humerus 0 11/14/2017 Painful patella, unspecified laterality 11/05/2017 S/P revision of total hip 09/18/2017 Colon cancer screening 05/24/2017 Overview: Added automatically from request for [facility] [id number] Hematemesis with nausea 05/24/2017 Overview: Added automatically from request for [facility] [id number] Nausea and vomiting, intractability of vomiting not s pecified, unspecified 05/24/2017 vomiting type Overview: Added automatically from request for [facility] [id number] ANJELICA (obstructive sleep apnea) 05/10/2017 Obesity (BMI 30-39.9) 05/01/2017 Microhematuria 02/14/2017 Complex tear of medial meniscus of right knee as curr ent injury, initial 01/18/2017 encounter Overview: Added automatically from request for [facility] [id number] Elevated MCV 07/25/2016 Overview: 103.4 07/22/2016 Muscle [...] lobe nodular opacitiy on [facility] xray at [facility] 05/22/2015 Hiatus hernia syndrome 04/09/2015 Overview: EGD 03/23/2015 [facility] screening mammogram 01/06/2015 Immunization deficiency 10/09/2014 [...] lower leg 11/25/2013 Overview: ICD10 Diagnosis Term Assistant Service Manager Utility Knee crepitus 11/25/2013 Genu valgum, acquired 11/25/2013 Overview: ICD10 Diagnosis Term Assistant Service Manager Utility Patellofemoral misalignment with pain 11/25/2013 Primary [...] 11/16/2010 Headache 04/08/2010 Overview: ICD10 Diagnosis Term Assistant Service Manager Utility Nonerosive nonspecific gastritis 04/08/2010 Overview: EGD Dr. Lloyd Glossitis 02/23/2010 Tobacco use disorder 02/23/2010 Menorrhagia 05/19/2009 Vision blurred 05/19/2009 Acute upper respiratory infection 08/14/2008 Overview: ICD10 Diagnosis Term Assistant Service Manager Utility Acute pharyngitis 08/14/2008 Screening for malignant neoplasm of cervix 9 Overview: ICD10 Diagnosis Term Assistant Service Manager Utility Breast screening 07/16/2008 Overview: ICD10 Diagnosis Term Assistant Service Manager Utility Urinary tract infection, site not specified 04/29/20 08 Backache 06/02/2007 Overview: Lower back pain ICD10 Diagnosis Term Assistant Service Manager Utility Pain in joint 06/02/2007 Overview: ICD10 Diagnosis Term Assistant Service Manager Utility Cervicalgia 06/02/2007 Myalgia and myositis 06/02/2007 Overview: Bilateral trapezius pain ICD10 Diagnosis Term Assistant Service Manager Utility Absence of menstruation 04/25/2007 Anemia 03/25/2007 Overview: ICD10 Diagnosis Term Assistant Service Manager Utility Helicobacter pylori infection 06/11/2006 Overview: ICD10 Diagnosis Term Assistant Service Manager Utility Acute peptic ulcer 06/11/2006 Overview: ICD10 Diagnosis Term Assistant Service Manager Utility Abdominal pain 04/25/2006 Overview: ICD10 Diagnosis Term Assistant Service Manager Utility Ankylosing spondylitis 04/25/2006 Vaginitis and vulvovaginitis 04/25/2006 Overview: ICD10 Diagnosis Term Assistant Service Manager Utility Other, mixed, or unspecified nondependent drug abuse, continuous 11/30/2005 documented as of this encounter (statuses as of 02/04/2019) Resolved Problems Problem Noted Date Resolved Date Arm laceration, right, subsequent encounter 04/13/2014 04/13/2014 Syncope and collapse 02/27/2007 06/28/2014 Bipolar I disorder, most recent episode (or current) unspec ified 01/03/2007 01/23/2018 Overview: Dr. 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 11/30/2005 02/11/2018 Overview: ICD10 Diagnosis Term Assistant Service Manager Utility documented as of this encounter (statuses as of 02/04/2019) Immunizations Name Administration Dates Next Due Influenza [...] Care Team Description Date Type Specialty Frida Rose, [address] [place] [address] [phone] 02/05/2019 Appointment Radiology Jess Tovar MD [address] [place] [address] 02/11/2019 [place] [address] [place] [address] [phone], Jennifer Adult Infusion Nurse 02/20/2019 Nurse Visit Infusion Therapy Rosario Joseph MD [facility] [place] [phone] 03/04/2019 Office Visit Pulmonary Disease Omar Clay, DO [address] [place] [address] [phone] 03/05/2019 Office Visit Rheumatology Ann-Marie Johnson MD [address] [place] [address] [phone] 03/13/2019 Office Visit Family Medicine Jess Tovar MD [facility] [place], [place] [address] 03/13/2019 Office [place] [address] [place] [address] 03/19/2019 Office Visit Family Medicine Omar Clay, DO [address] [place] [address] [phone] 3, Jennifer Adult Infusion Nurse 04/17/2019 Nurse Visit Infusion Therapy Sebastian Doe [address] [place] [id number] [place] [address] [phone] 04/30/2019 Office Visit Pain Medicine Ginny Oneal MD [address] [place] [address]. [place] [phone] 06/09/2019 Office Visit Gastroenterology Omar Clay, DO [address] [place] [address] [phone], Jennifer Adult Infusion Nurse 06/12/2019 Nurse [...] Donal Uhr Bipolar BIPOLAR Right: Hip Donal 48w39db #Uh1-44-28 - S0 head Implanted: Qty: 1 on 09/18/2017 by Sebastian Bunn MD at [facility] 07/07/2021 1023-12 / [id number] / [id number] Cancellous Cubes, [facility] Tissue BONE Right: Hip [facility] Services Freeze Dried 30 Cc Tissue #1023-12 - [id number] Services Implanted: Qty: 1 on 09/18/2017 by Sebastian Bunn MD at [facility] 03/08/20182017-40 / [id number] / [id number] Dbm Putty Maxxeus 10cc Cts #2017-40 BONE Right: Hip [facility] - [id number] Tissue Implanted: Qty: 1 on 09/18/2017 by Services Sebastian Bunn MD at [facility] 04/07/2022 1365-28-720 / 0 / [id number] Delta Ceramic Femoral Head 28mm +5 Head Right: Hip Depuy 06/21 Taper Depuy Ref#[id number] Synthes Implanted: Qty: 1 on 09/18/2017 by Sebastian Bunn MD at [facility] 03/29/2022 623-00-44F / 0 / [id number] Insert, Donal Trident 0deg 44mm Liner Right: Hip Donal #623-00-44f Implanted: Qty: 1 on 09/18/2017 by Sebastian Bunn MD at [facility] 04/24/2022 5260-5-050 / 0 / [id number] Screw Osteolock 3.[address] SCREW Right: Hip [place] Cancellous 50mm Donal Ref#[id number] Implanted: Qty: 2 on 09/18/2017 by Sebastian Bunn MD at [facility] 06/01/2022 5260-5-020 / 0 / [id number] Screw Ostelock 3.[address] SCREW Right: Hip Donal Cancellous 20mm Donal Ref#[id number] Implanted: Qty: 1 on 09/18/2017 by Sebastian Bunn MD at [facility] 06/01/2022 5260-5-016 / 0 / [id number] Screw Osteolock 3.[address] SCREW Right: Hip [place] Cancellous 18mm Donal Ref#[id number] Implanted: Qty: 1 on 09/18/2017 by Sebastian Bunn MD at [facility] 01/02/2022 509-02-60F / 0 / [id number] Shell, Donal Tritanium Revision Shell Right: Hip [place] Acetabular #509-02-60f - S0 Implanted: Qty: 1 on 09/18/2017 by Sebastian Bunn MD at [facility] documented as of this encounter Procedures Comments Procedure Name Priority Date/Time Associated Diag nosis DISCLOSURE AND CONSENT, Routine 02/03/2019 MEDICAL AND SURGICAL 12:01 AM CDT PROCEDURES documented in this encounter Results Not on filedocumented in this encounter Insurance Type Payer Benefit Subscriber ID Effective Phone Address Plan / Dates Group Medicare Adv HMO [facility] [id number] 2018- MANAGED MEDICARE HEALTHCARE Present DUAL COMPLETE HMO [facility] [id number] 2018- [address] SOL[employer] H Present [address] [place] [address] documented as of this encounter Advance Directives Patient Ornithology Teacher Explanation Type Date Recorded 0 Advance Directives 08/08/2013 8:00 AM and Living Will Power of Ad Compositor 08/08/2013 8:00 AM
--- OUTSIDE RECORDS SUMMARY | 2019-12-13 15:26 | XMS REPORT | Summary of Care ---
Author Author [facility] - Health Organization [facility] - Health Address Unknown Phone Unavailable Care Team Providers Care Training Manager Name Role Phone Ovidio Clarke MD PCP Reason for Referral * Radiology Services (Routine) Referred By Contact Referred To Contact Status Reason Specialty Diagnoses / Procedures Frida Rose DO [address] [place] [address] 30394 Closed Diagnostic Diagnoses Radiology Vaginal odor P rocedures US PELVIS COMPLETE WITH TRANSVAGINAL * Radiology Services (Routine) Referred By Contact Referred To Contact Status Reason Specialty Diagnoses / Procedures Frida Rose DO [address] [place] [address] 79650 Closed Diagnostic Diagnoses Radiology Vaginal odor P rocedures US PELVIS COMPLETE WITH TRANSVAGINAL Reason for Visit * Radiology Services (Routine) Referred By Contact Referred To Contact Status Reason Specialty Diagnoses / Procedures Frida Rose DO [address] [place] [address] Closed Diagnostic Diagnoses Radiology Vaginal odor P rocedures US PELVIS COMPLETE WITH TRANSVAGINAL Encounter Details Care Team Description Date Type Department Frida Rose DO [address] [place] [address] [phone] Arrived 02/05/2019 Hospital [facility] Encounter [facility] [address] [place] [phone] Allergies Comments Active Allergy Reactions Severity Noted [...] Added automatically from request for jimmy solorio [id number] Cervical spondylosis with radiculopathy 01/01/2019 Overview: Added automatically from request for jimmy solorio [id number] Mixed hyperlipidemia 08/13/2018 Overview: LDL 140 07/17/2018 Left tennis elbow 06/17/2018 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 Overview: R Avulsion fracture of lateral epicondyle of humerus 0 11/14/2017 Painful patella, unspecified laterality 11/05/2017 S/P revision of total hip 09/18/2017 Colon cancer screening 05/24/2017 Overview: Added automatically from request for jimmy solorio [id number] Hematemesis with nausea 05/24/2017 Overview: Added automatically from request for jimmy solorio [id number] Nausea and vomiting, intractability of vomiting not s pecified, unspecified 05/24/2017 vomiting type Overview: Added automatically from request for jimmy solorio [id number] ANJELICA (obstructive sleep apnea) 05/10/2017 Obesity (BMI 30-39.9) 05/01/2017 Microhematuria 02/14/2017 Complex tear of medial meniscus of right knee as curr ent injury, initial 01/18/2017 encounter Overview: Added automatically from request for jimmy solorio [id number] Elevated MCV 07/25/2016 Overview: 103.4 07/22/2016 Muscle [...] opacitiy on chest xray at [facility] 05/22/2015 Hiatus hernia syndrome 04/09/2015 Overview: EGD 03/23/2015 [facility] Other screening mammogram 01/06/2015 Immunization deficiency 10/09/2014 [...] lower leg 11/25/2013 Overview: ICD10 Diagnosis Term Sales And Production Manager Utility Knee crepitus 11/25/2013 Genu valgum, acquired 11/25/2013 Overview: ICD10 Diagnosis Term Sales And Production Manager Utility Patellofemoral misalignment with pain 11/25/2013 [...] 11/16/2010 Headache 04/08/2010 Overview: ICD10 Diagnosis Term Sales And Production Manager Utility Nonerosive nonspecific gastritis 04/08/2010 Overview: EGD Dr. Lloyd Glossitis 02/23/2010 Tobacco use disorder 02/23/2010 Menorrhagia 05/19/2009 Vision blurred 05/19/2009 Acute upper respiratory infection 08/14/2008 Overview: ICD10 Diagnosis Term Sales And Production Manager Utility Acute pharyngitis 08/14/2008 Screening for malignant neoplasm of cervix Overview: ICD10 Diagnosis Term Sales And Production Manager Utility Breast screening 07/16/2008 Overview: ICD10 Diagnosis Term Sales And Production Manager Utility Urinary tract infection, site not specified 04/29/20 08 Backache 06/02/2007 Overview: Lower back pain ICD10 Diagnosis Term Sales And Production Manager Utility Pain in joint 06/02/2007 Overview: ICD10 Diagnosis Term Sales And Production Manager Utility Cervicalgia 06/02/2007 Myalgia and myositis 06/02/2007 Overview: Bilateral trapezius pain ICD10 Diagnosis Term Sales And Production Manager Utility Absence of menstruation 04/25/2007 Anemia 03/25/2007 Overview: ICD10 Diagnosis Term Sales And Production Manager Utility Helicobacter pylori infection 06/11/2006 Overview: ICD10 Diagnosis Term Sales And Production Manager Utility Acute peptic ulcer 06/11/2006 Overview: ICD10 Diagnosis Term Sales And Production Manager Utility Abdominal pain 04/25/2006 Overview: ICD10 Diagnosis Term Sales And Production Manager Utility Ankylosing spondylitis 04/25/2006 Vaginitis and vulvovaginitis 04/25/2006 Overview: ICD10 Diagnosis Term Sales And Production Manager Utility Other, mixed, or unspecified nondependent [...] eatures 11/30/2005 02/11/2018 Overview: ICD10 Diagnosis Term Sales And Production Manager Utility documented as of this encounter [...] Description Date Type Specialty Jess Tovar MD [address] [place] [address] [phone] 02/11/2019 Office Visit Neurology Carley Villarreal MD [address] [place] [address] RU7930 [place], [place] [phone] 02/18/2019 Appointment Electroneurodiagnos tic Omar Clay DO [address] [place] [address] [phone] 3Jennifer Adult Infusion Nurse 02/20/2019 Nurse Visit Infusion Therapy Rosario Joseph MD [address] [place] [address] [phone] 03/04/2019 Office Visit Pulmonary Disease Omar Clay DO [address] [place] [address] [phone] 03/05/2019 Office Visit Rheumatology Asher Dexter MD [address] [place] [address] [phone] Hematemesis with nausea 03/06/2019 Hospital Surgery Encounter Asher Dextre MD [address] [place] [address] [phone] COLONOSCOPY 03/06/2019 Surgery Surgery Ann-Marie Johnson MD [address] [address] [phone] 03/13/2019 Office Visit Family Medicine Jess Tovar MD [address] [place] [address] [phone] 03/13/2019 Office [place] [address] [place] [phone] 03/19/2019 Office Visit Family Medicine Omar Clay, DO [address] [place] [address] [phone] 3, Jennifer Adult Infusion Nurse 04/17/2019 Nurse Visit Infusion Therapy Sebastian Doe [address] [place] [id number] [place] [address] [phone] 04/30/2019 Office Visit Pain Medicine Ginny Oneal MD [address] [place] [address]. [place] [address] 06/09/2019 Office Visit Gastroenterology Omar Clay, DO [address] [place] [address] [phone], Jennifer Adult Infusion Nurse 06/12/2019 Nurse [...] Head, Donal Uhr Bipolar BIPOLAR Right: Hip Theresa [id number] #Uh1-44-28 - S0 head Implanted: Qty: 1 on 09/18/2017 by Sebastian Bunn MD at [facility] 07/07/2021 1023-12 / [id number] / [id number] Cancellous Cubes, Community Tissue BONE Right: Hip [facility] Services Freeze Dried 30 Cc Tissue #1023-12 - [id number] Services Implanted: Qty: 1 on 09/18/2017 by Sebastian Bunn MD at [facility] 03/08/2018 2018-40 / [id number] / [id number] Dbm Putty Maxxeus 10cc Cts #2018-40 BONE Right: Hip [facility] - [id number] Tissue Implanted: Qty: 1 on 09/18/2017 by Services Sebastian Bunn MD at [facility] 04/07/2022 1365-28-720 / 0 / [id number] Delta Ceramic Femoral Head 28mm +5 Head Right: Hip Depuy 06/21 Taper Depuy Ref#[id number] Synthes Implanted: Qty: 1 on 09/18/2017 by Sebastian Bunn MD at [facility] 03/29/2022 623-00-44F / 0 / [id number] Insert, Theresa Trident 0deg 44mm Liner Right: Hip Donal #[id number] Implanted: Qty: 1 on 09/18/2017 by Sebastian Bunn MD at [facility] 04/24/2022 5260-5-050 / 0 / [id number] Screw Osteolock 3.[address] SCREW Right: Hip Theresa Cancellous 50mm Theresa Ref#[id number] Implanted: Qty: 2 on 09/18/2017 by Sebastian Bunn MD at [facility] 06/01/2022 5260-5-020 / 0 / [id number] Screw Ostelock 3.[address] SCREW Right: Hip Theresa Cancellous 20mm Theresa Ref#[id number] Implanted: Qty: 1 on 09/18/2017 by Sebastian Bunn MD at [facility] 06/01/2022 5260-5-016 / 0 / [id number] Screw Osteolock 3.[address] SCREW Right: Hip Theresa Cancellous 18mm Theresa Ref#[id number] Implanted: Qty: 1 on 09/18/2017 by Sebastian Bunn MD at [facility] 01/02/2022 509-02-60F / 0 / [id number] Shell, Theresa Tritanium Revision Shell Right: Hip Theresa Acetabular #[id number] - S0 Implanted: Qty: 1 on 09/18/2017 by Sebastian Bunn MD at [facility] documented as of this encounter Procedures Comments Procedure Name Priority Date/Time Associated Diag nosis US PELVIS COMPLETE WITH Routine 02/05/2019 Vagina l odor TRANSVAGINAL 10:20 AM CDT documented in this encounter Results * US PELVIS COMPLETE WITH TRANSVAGINAL (02/05/2019 10:20 AM CDT) Specimen Impressions Performed At 1.The uterus is surgically absent. PACS/VR/DOSE 2.The ovaries are within normal brasher its. IKsenia MD., have reviewed this study and agree with the above report. Narrative Performed At TRANSABDOMINAL AND TRANSVAGINAL PELVIC ULTRASOUND PA CS/VR/DOSE HISTORY: 53-year-old female with left p elvic pain TECHNIQUE: Survey transabdominal and tr ansvaginal ultrasound imaging of the pelvis was performed including color Do ppler evaluation with used equipment sales representative images obtained. Spectral Doppler evalu ation of [...] was performed including color Doppler evaluation with used equipment sales representative images obtained. Spectral Doppler evaluation of both [...] with the above report. Performing Organization Address City/State/Zipcode Ph one Number PACS/VR/DOSE documented in this encounter Visit Diagnoses Diagnosis Vaginal odor Unspecified symptom associated with fem darrian genital organs documented in this encounter Insurance Type Payer Benefit Subscriber ID Effective Phone Address Plan / Dates Group Medicare Adv O [facility] [id number] 2018- MANAGED MEDICARE HEALTHCARE Present DUAL COMPLETE HMO documented as of this encounter Advance Directives Patient Family Services Manager Explanation Type Date Recorded 0 Advance Directives 08/08/2013 8:00 AM and Living Will Power of Cloth Spreader 08/08/2013 8:00 AM
--- OUTSIDE RECORDS SUMMARY | 2019-12-13 15:27 | XMS REPORT | Summary of Care ---
Author Author [facility] - Health Organization [facility] - Health Address Unknown Phone Unavailable Care Team Providers Care Fire Control Technician G Name Role Phone Ovidio Clarke MD PCP Reason for Visit * Reason Comments Refill Request Encounter Details Care Team Description Date Type Department Omar Clay, DO [address] [place] [address] [phone] Refill Request 02/19/2019 Refill [facility] [address], [address] [place] [address] Allergies Comments Active Allergy Reactions Severity Noted Date Aspirin Hives 03/21/2012 Sulfa (Sulfonamide Hives 11/29/2005 Antibiotics) documented as of this encounter (statuses as of 02/20/2019) Medications End Date Status Medication Sig Dispensed [...] Acute into vagina vaginitis at bedtime. Active cyclobenzaprine 5 mg TAKE 1 TABLET [...] Special screening for colonoscopy malignant neoplasms, colon Active methotrexate 2.5 mg Take by mouth 60 tablet 0 02/06 tabletIndications: TAKE 5 9 Ankylosing spondylitis of TABLETS BY multiple sites in spine MOUTH ONCE WEEKLY 02/19/2019 Discontinued methotrexate 2.5 mg TAKE 5 60 tablet 0 tabletIndications: TABLETS BY 9 Ankylosing spondylitis of MOUTH WEEKLY multiple sites in spine Status Hospital, Clinic, or Ordered Dose Route Frequency Start End Date Other Facility Date Administered Medication Active lactated ringers IV 1000 mL IV Infusion CONTINUOUS infusion 1,000 mL 19 documented as of this encounter (statuses as of 02/20/2019) Active Problems Problem Noted Date Special screening for malignant neoplasms, colon Overview: Added automatically from request for jimmy solorio [id number] Cervical spondylosis with radiculopathy 01/01/2019 Overview: Added automatically from request for jimmy solorio [id number] Mixed hyperlipidemia 08/13/2018 Overview: LDL 140 07/17/2018 Left tennis elbow 06/17/2018 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 Overview: R Avulsion fracture of lateral epicondyle of humerus 0 11/14/2017 Painful patella, unspecified laterality 11/05/2017 S/P revision of total hip 09/18/2017 Colon cancer screening 05/24/2017 Overview: Added automatically from request for jimmy solorio [id number] Hematemesis with nausea 05/24/2017 Overview: Added automatically from request for jimmy solorio [id number] Nausea and vomiting, intractability of vomiting not s pecified, unspecified 05/24/2017 vomiting type Overview: Added automatically from request for jimmy solorio [id number] ANJELICA (obstructive sleep apnea) 05/10/2017 Obesity (BMI 30-39.9) 05/01/2017 Microhematuria 02/14/2017 Complex tear of medial meniscus of right knee as curr ent injury, initial 01/18/2017 encounter Overview: Added automatically from request for jimmy solorio [id number] Elevated MCV 07/25/2016 Overview: 103.4 07/22/2016 Muscle [...] lobe nodular opacitiy on chest xray at [facility] 05/22/2015 Hiatus hernia syndrome 04/09/2015 Overview: EGD 03/23/2015 [facility] screening mammogram 01/06/2015 Immunization deficiency 10/09/2014 Overview: [...] lower leg 11/25/2013 Overview: ICD10 Diagnosis Term Asp Net Developer Utility Knee crepitus 11/25/2013 Genu valgum, acquired 11/25/2013 Overview: ICD10 Diagnosis Term Asp Net Developer Utility Patellofemoral misalignment with pain 11/25/2013 Primary [...] 11/16/2010 Headache 04/08/2010 Overview: ICD10 Diagnosis Term Asp Net Developer Utility Nonerosive nonspecific gastritis 04/08/2010 Overview: EGD Dr. Lloyd Glossitis 02/23/2010 Tobacco use disorder 02/23/2010 Menorrhagia 05/19/2009 Vision blurred 05/19/2009 Acute upper respiratory infection 08/14/2008 Overview: ICD10 Diagnosis Term Asp Net Developer Utility Acute pharyngitis 08/14/2008 Screening for malignant neoplasm of cervix 9 Overview: ICD10 Diagnosis Term Asp Net Developer Utility Breast screening 07/16/2008 Overview: ICD10 Diagnosis Term Asp Net Developer Utility Urinary tract infection, site not specified 04/29/20 08 Backache 06/02/2007 Overview: Lower back pain ICD10 Diagnosis Term Asp Net Developer Utility Pain in joint 06/02/2007 Overview: ICD10 Diagnosis Term Asp Net Developer Utility Cervicalgia 06/02/2007 Myalgia and myositis 06/02/2007 Overview: Bilateral trapezius pain ICD10 Diagnosis Term Asp Net Developer Utility Absence of menstruation 04/25/2007 Anemia 03/25/2007 Overview: ICD10 Diagnosis Term Asp Net Developer Utility Helicobacter pylori infection 06/11/2006 Overview: ICD10 Diagnosis Term Asp Net Developer Utility Acute peptic ulcer 06/11/2006 Overview: ICD10 Diagnosis Term Asp Net Developer Utility Abdominal pain 04/25/2006 Overview: ICD10 Diagnosis Term Asp Net Developer Utility Ankylosing spondylitis 04/25/2006 Vaginitis and vulvovaginitis 04/25/2006 Overview: ICD10 Diagnosis Term Asp Net Developer Utility Other, mixed, or unspecified nondependent drug abuse, continuous 11/30/2005 documented as of this encounter (statuses as of 02/20/2019) Resolved Problems Problem Noted Date Resolved Date Arm laceration, right, subsequent encounter 04/13/2014 04/13/2014 Syncope and collapse 02/27/2007 06/28/2014 Bipolar I disorder, most recent episode (or current) unspec ified 01/03/2007 01/23/2018 Overview: Dr. 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 11/30/2005 02/11/2018 Overview: ICD10 Diagnosis Term Asp Net Developer Utility documented as of this encounter (statuses as of 02/20/2019) Immunizations Name Administration Dates Next Due Influenza [...] Treatment Care Team Description Date Type Specialty Rosario Joseph MD [address] [place] [address] [phone] 03/04/2019 Office Visit Pulmonary Disease Omar Clay, DO [address] [place] [address] [phone] 03/05/2019 Office Visit Rheumatology Ann-Marie Johnson MD [address] [place] [address] [phone] 03/13/2019 Office Visit Family Medicine Jess Tovar MD [address] [place] [address] [phone] 03/13/2019 Office [place] [address] [place] [phone] 03/19/2019 Office Visit Family Medicine Ginny Oneal MD [address] [place] [phone] 03/24/2019 Office Visit Gastroenterology Omar Clay, DO [address] [place] [address] [phone], Jennifer Adult Infusion Nurse 04/17/2019 Nurse Visit Infusion Therapy Sebastian Doe [address] [place] [address] [id number] [place], [place] [phone] 04/30/2019 Office Visit Pain Medicine Ginny Oneal MD [address] [place] [phone] 06/09/2019 Office Visit Gastroenterology Omar Clay, DO [address] [place] [address] [phone], Jennifer Adult Infusion Nurse 06/12/2019 Nurse Visit Infusion Therapy Health Maintenance Due Date Last Done Comments PNEUMOCOCCAL 0-64 YEARS 10/13/2014 08/18/2014 COMBINED SERIES (2 of 3 - PPSV23) Zoster Recombinant 2014 Vaccine (SHINGRIX) (1 of 2) INFLUENZA VACCINE (#1) 2019 05/01/2018, 08/2016, 05/26/2015, Additional history exists MAMMOGRAM 06/14/2019 06/14/2018, 016 PAP SMEAR 11/04/2019 11/03/2016 (Previou sly completed), 07/16/2008, 05/26/2005, Additional history exists DTaP,Tdap,and Td Vaccines 08/24/2024 08/24/2014, 04/01/2014 (2 - Td) COLONOSCOPY 02/17/2029 02/17/2019, 015 HEPATITIS C (HCV) SCREEN Completed 11/17/2015, 1 [...] 1-44-28 / 0 / [id number] Bipolar Head, [place] Uhr Bipolar BIPOLAR Right: Hip [place] 65p40qv #Uh1-44-28 - S0 head Implanted: Qty: 1 on 09/18/2017 by Sebastian Bunn MD at [facility] 07/07/2021 1023-12 / [id number] / [id number] Cancellous Cubes, Community Tissue BONE Right: Hip [facility] Services Freeze Dried 30 Cc Tissue #1023-12 - [id number] Services Implanted: Qty: 1 on 09/18/2017 by Sebastian Bunn MD at [facility] 03/08/20182017-40 / [id number] / [id number] Dbm Putty Maxxeus 10cc Cts #2017- BONE Right: Hip [facility] - [id number] Tissue Implanted: Qty: 1 on 09/18/2017 by Services Sebastian Bunn MD at [facility] 04/07/2022 1365-28-720 / 0 / [id number] Delta Ceramic Femoral Head 28mm +5 Head Right: Hip Depuy 06/21 Taper Depuy Ref#[id number] Synthes Implanted: Qty: 1 on 09/18/2017 by Sebastian Bunn MD at [facility] 03/29/2022 623-00-44F / 0 / [id number] Insert, Donal Trident 0deg 44mm Liner Right: Hip [place] #623-00-44f Implanted: Qty: 1 on 09/18/2017 by Sebastian Bunn MD at [facility] 04/24/2022 5260-5-050 / 0 / [id number] Screw Osteolock 3.[address] SCREW Right: Hip Donal Cancellous 50mm Donal Ref#[id number] Implanted: Qty: 2 on 09/18/2017 by Sebastian Bunn MD at [facility] 06/01/2022 5260-5-020 / 0 / [id number] Screw Ostelock 3.[address] SCREW Right: Hip [place] Cancellous 20mm Donal Ref#[id number] Implanted: Qty: 1 on 09/18/2017 by Sebastian Bunn MD at [facility] 06/01/2022 5260-5-016 / 0 / [id number] Screw Osteolock 3.[address] SCREW Right: Hip [place] Cancellous 18mm Donal Ref#[id number] Implanted: Qty: 1 on 09/18/2017 by Sebastian Bunn MD at [facility] 01/02/2022 509-02-60F / 0 / [id number] Shell, [place] Tritanium Revision Shell Right: Hip Donal Acetabular #[id number] - S0 Implanted: Qty: 1 on 09/18/2017 by Sebastian Bunn MD at [facility] documented as of this encounter Results Not on filedocumented in this encounter Visit Diagnoses Diagnosis Ankylosing spondylitis of multiple site s in spine Ankylosing spondylitis documented in this encounter Insurance Type Payer Benefit Subscriber ID Effective Phone Address Plan / Dates Group Medicare Adv HMO [facility] [id number] 2018- MANAGED MEDICARE HEALTHCARE Present DUAL COMPLETE HMO [facility] [id number] 2018- [address] BOX SOLUTIONS Present [address] [place] [address] Medicaid [facility] MEDICAID xxxxxxxxx 2019-P [phone] [address] OF [facility] [address] [place] [address] documented as of this encounter Advance Directives Patient Team Facilitator Explanation Type Date Recorded 0 Advance Directives 08/08/2013 8:00 AM and Living Will Power of Lockstitch Back Maker 08/08/2013 8:00 AM
--- OUTSIDE RECORDS SUMMARY | 2019-12-13 15:27 | XMS REPORT | Summary of Care ---
Author Author [facility] - Health Organization [facility] - Health Address Unknown Phone Unavailable Care Team Providers Care Trimmer Sawyer Name Role Phone Ovidio Clarke MD PCP Reason for Visit * Reason Comments Infusion Therapy * (Routine) Referred By Contact Referred To Contact Status Reason Specialty Diagnoses / Procedures Omar Clay DO [address] [place] [address] Authorized Infusion Therapy Diagnoses Ankylosing spondylitis, unspecified site of spine P rocedures CONSULT AMB INFUSION THERAPY Preferred location: [place] ([facility] 3rd Floor) Encounter Details Care Team Description Date Type Department Omar Clay DO [address] [place], [place] [address] 3, Jennifer Adult Infusion Nurse Ankylosing spondylitis, unspecified site of spine (Primary Dx) 02/20/2019 Nurse Visit [facility] [address] [facility] [address] [place] [phone] Allergies Comments Active Allergy Reactions Severity Noted [...] Special screening for colonoscopy malignant neoplasms, colon 02/19/2019 Discontinued methotrexate 2.5 mg TAKE 5 [...] Added automatically from request for jimmy solorio [id number] Cervical spondylosis with radiculopathy 01/01/2019 Overview: Added automatically from request for jimmy solorio [id number] Mixed hyperlipidemia 08/13/2018 Overview: LDL 140 07/17/2018 Left tennis elbow 06/17/2018 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 Overview: R Avulsion fracture of lateral epicondyle of humerus 0 11/14/2017 Painful patella, unspecified laterality 11/05/2017 S/P revision of total hip 09/18/2017 Colon cancer screening 05/24/2017 Overview: Added automatically from request for jimmy solorio [id number] Hematemesis with nausea 05/24/2017 Overview: Added automatically from request for jimmy solorio [id number] Nausea and vomiting, intractability of vomiting not s pecified, unspecified 05/24/2017 vomiting type Overview: Added automatically from request for jimmy solorio [id number] ANJELICA (obstructive sleep apnea) 05/10/2017 Obesity (BMI 30-39.9) 05/01/2017 Microhematuria 02/14/2017 Complex tear of medial meniscus of right knee as curr ent injury, initial 01/18/2017 encounter Overview: Added automatically from request for jimmy solorio [id number] Elevated MCV 07/25/2016 Overview: 103.4 07/22/2016 Muscle [...] lobe nodular opacitiy on chest xray at [facility] 05/22/2015 Hiatus hernia syndrome 04/09/2015 Overview: EGD 03/23/2015 [facility] screening mammogram 01/06/2015 Immunization deficiency 10/09/2014 [...] lower leg 11/25/2013 Overview: ICD10 Diagnosis Term [employer] Knee crepitus 11/25/2013 Genu valgum, acquired 11/25/2013 Overview: ICD10 Diagnosis Term [employer] Patellofemoral misalignment with pain 11/25/2013 Primary [...] 11/16/2010 Headache 04/08/2010 Overview: ICD10 Diagnosis Term [employer] Nonerosive nonspecific gastritis 04/08/2010 Overview: EGD Dr. Lloyd Glossitis 02/23/2010 Tobacco use disorder 02/23/2010 Menorrhagia 05/19/2009 Vision blurred 05/19/2009 Acute upper respiratory infection 08/14/2008 Overview: ICD10 Diagnosis Term [employer] Acute pharyngitis 08/14/2008 Screening for malignant neoplasm of cervix Overview: ICD10 Diagnosis Term [employer] Breast screening 07/16/2008 Overview: ICD10 Diagnosis Term [employer] Urinary tract infection, site not specified 04/29/20 08 Backache 06/02/2007 Overview: Lower back pain ICD10 Diagnosis Term [employer] Pain in joint 06/02/2007 Overview: ICD10 Diagnosis Term [employer] Cervicalgia 06/02/2007 Myalgia and myositis 06/02/2007 Overview: Bilateral trapezius pain ICD10 Diagnosis Term [employer] Absence of menstruation 04/25/2007 Anemia 03/25/2007 Overview: ICD10 Diagnosis Term [employer] Helicobacter pylori infection 06/11/2006 Overview: ICD10 Diagnosis Term [employer] Acute peptic ulcer 06/11/2006 Overview: ICD10 Diagnosis Term [employer] Abdominal pain 04/25/2006 Overview: ICD10 Diagnosis Term [employer] Ankylosing spondylitis 04/25/2006 Vaginitis and vulvovaginitis 04/25/2006 Overview: ICD10 Diagnosis Term [employer] Other, mixed, or unspecified nondependent drug [...] eatures 11/30/2005 02/11/2018 Overview: ICD10 Diagnosis Term [employer] Utility documented as of this encounter (statuses [...] Signs Reading Time Taken Comments Vital Sign 101/72 02/20/2019 8:45 AM CDT Blood Pressure 95 02/20/2019 8:45 AM CDT Pulse 36.6 C (97.9 F) 02/20/2019 8:45 AM CDT Temperature 16 02/20/2019 8:45 AM CDT Respiratory Rate - - Oxygen Saturation - - Inhaled Oxygen Concentration 89.3 kg (196 lb 14.4 oz) 02/20/2019 8:45 AM CDT Weight - - Height 32.77 02/17/2019 2:12 PM CDT Body Mass Index documented in this encounter Progress Notes * Stella Cowan RN - 02/20/2019 8:30 AM CDT Infusion Therapy Note ALLERGIES: Aspirin and Sulfa (sulfonamide antibiotics) Diagnosis (Primary) Ankylosing spondylitis, unspecified site of spine Diagnosis (Secondary) Time Out Patient identified by Name and Infusion verified with patient IV Therapy Type:Peripheral Site Location:right upper arm Blood return present:yes I.V. Flush:0.9 NS 10cc x 1 vial(s) I.V. Patent:yes I.V. Fluids:None During administration:burning: no, redness: no and swelling: no Comments:Peripheral IV ordered. Chlorprep and clean technique utilized. IV est ablished with 24 gauge needle after 1 attempts in the right upper hand . Patien t tolerated procedure well. Good blood return and catheter flushes easily. No re dness, edema or burning noted. IV fluids of None initiated at variable rate to maintain patency between therapeutic infusions. All fluids running via pump. ANTIEMETIC/PREMED/OTHER DRUG DOSE ROUTE START TIME STOP TIME Tylenol 650mg PO 902 0903 Benadryl 25mg PO 902 0903 HYDRATION/THERAPEUTIC DRUG DOSE ROUTE START TIME STOP TIME Remicade 625mg IV 0933 1133 Comments: Infusion completed without incident. IV tubing flushed with IV fluids. PIV discontinued, pressure held, bandaid applied. IV catheter appears intact on visual inspection. Patient provided with preferred teaching of verbal informati on on follow up appointment. Shows readiness to learn. Verbal instruction teachi ng provided. Individual is able to read and verbalizes understanding of teaching provided. Patient ambulated out of clinic. documented in this encounter Plan of Treatment Care Team Description Date Type Specialty Rosario Joseph MD [facility] [place] [address] [phone] 03/04/2019 Office Visit Pulmonary Disease Omar Clay DO [address] [place] [address] [phone] 03/05/2019 Office Visit Rheumatology Ann-Marie Johnson MD [address] [place] [address] [phone] 03/13/2019 Office Visit Family Medicine Jess Tovar MD [address] [place] [address] [phone] 03/13/2019 Office [place] [address] [place] [address] 03/19/2019 Office Visit Family Medicine Ginny Oneal MD [address] [place] [phone] 03/24/2019 Office Visit Gastroenterology Omar Clay DO [facility] [place] [address] [phone] 3, Jennifer Adult Infusion Nurse 04/17/2019 Nurse Visit Infusion Therapy Sebastian Doe [address] [place] [address] [address] [place], [place] [address] 04/30/2019 Office Visit Pain Medicine Ginny Oneal MD [address] [place] [phone] 06/09/2019 Office Visit Gastroenterology Omar Clay DO [address] [place] [address] [phone] Jennifer Eldridge Adult Infusion Nurse 06/12/2019 Nurse Visit Infusion [...] UH1-44-28 / 0 / [id number] Bipolar Head, [employer] Uhr Bipolar BIPOLAR Right: Hip Donal [id number] #Uh1-44-28 - S0 head Implanted: Qty: 1 on 09/18/2017 by Sebastian Bunn MD at [facility] 07/07/2021 1023-12 / [id number] / [id number] Cancellous Cubes, Community Tissue BONE Right: Hip [facility] [employer] Freeze Dried 30 Cc Tissue #1023-12 - [id number] Services Implanted: Qty: 1 on 09/18/2017 by Sebastian Bunn MD at [facility] 03/08/2018 2018-40 / [id number] / [id number] Dbm Putty Maxxeus 10cc Cts #2018-40 BONE Right: Hip [facility] - [id number] Tissue Implanted: Qty: 1 on 09/18/2017 by Services Sebastian Bunn MD at [facility] 04/07/2022 1365-28-720 / 0 / [id number] Delta Ceramic Femoral Head 28mm +5 Head Right: Hip Depuy 06/21 Taper Depuy Ref#[id number] Synthes Implanted: Qty: 1 on 09/18/2017 by Sebastian Bunn MD at [facility] 03/29/2022 623-00-44F / 0 / [id number] Insert, Donal Trident 0deg 44mm Liner Right: Hip Donal #[id number] Implanted: Qty: 1 on 09/18/2017 by Sebastian Bunn MD at [facility] 04/24/2022 5260-5-050 / 0 / [id number] Screw Osteolock [address] SCREW Right: Hip Donal Cancellous 50mm [employer] Ref#[id number] Implanted: Qty: 2 on 09/18/2017 by Sebastian Bunn MD at [facility] 06/01/2022 5260-5-020 / 0 / [id number] Screw Ostelock 3.[address] SCREW Right: Hip [employer] Cancellous 20mm Donal Ref#[id number] Implanted: Qty: 1 on 09/18/2017 by Sebastian Bunn MD at [facility] 06/01/2022 5260-5-016 / 0 / [id number] Screw Osteolock 3.[address] SCREW Right: Hip Donal Cancellous 18mm Donal Ref#[id number] Implanted: Qty: 1 on 09/18/2017 by Sebastian Bunn MD at [facility] 01/02/2022 509-02-60F / 0 / [id number] Shell, [employer] Tritanium Revision Shell Right: Hip Donal Acetabular #[id number] - S0 Implanted: Qty: 1 on 09/18/2017 by Sebastian Bunn MD at [facility] documented as of this encounter Results Not on filedocumented in this encounter Visit Diagnoses Diagnosis Ankylosing spondylitis, unspecified sit e of spine - Primary documented in this encounter Administered Medications Action Date Dose Rate Site Medication Order MAR Action 02/20/2019 9:03 AM CDT 650 mg acetaminophen (TYLENOL) tablet 650 mg Given 650 mg, Oral, ONCE, 1 dose, Bety 02/20/19 at 1000, Routine 02/20/2019 9:03 AM CDT 25 mg diphenhydrAMINE (BENADRYL) tablet 25 mg Given 25 mg, Oral, ONCE, 1 dose, Bety 02/20/19 at 1000, Routine 02/20/2019 9:33 AM CDT 625 mg inFLIXimab (REMICADE) 625 mg in NaCl Given 0.9% (NS) infusion 625 mg (rounded from 625.1 mg = 7 mg/kg 89.3 kg), IV Piggyback, ONCE, 1 dose, Bety 02/20/19 at 1000, 250 mL, Criteria for use: Patient currently on Remicade documented in this encounter Insurance Type Payer Benefit Subscriber ID Effective Phone Address Plan / Dates Group Medicare [facility] [id number] 2018- MANAGED MEDICARE HEALTHCARE Present DUAL COMPLETE [facility] Medicaid [facility] MEDICAID xxxxxxxxx 2019-P [phone] [facility] [id number] [place] [address] documented as of this encounter Advance Directives Patient Clinical Field Specialist Explanation Type Date Recorded 0 Advance Directives 08/08/2013 8:00 AM and Living Will Power of Change Number Operator 08/08/2013 8:00 AM
--- OUTSIDE RECORDS SUMMARY | 2019-12-13 15:27 | XMS REPORT | Summary of Care ---
Author Author [facility] - Health Organization [facility] - Health Address Unknown Phone Unavailable Care Team Providers Care Refractory Tile Helper Name Role Phone Ovidio Clarke MD PCP Reason for Visit * Reason Comments Talk To Nurse Encounter Details Care Team Description Date Type Department Ginny Oneal MD [address] [place] [address]. [place] [address] Talk To Nurse 02/10/2019 Telephone [facility] GASTRO[facility]OLOGY -[facility] [address] [facility] [address] [place] [address] Allergies Comments Active Allergy Reactions Severity Noted Date Aspirin Hives 03/21/2012 Sulfa (Sulfonamide Hives 11/29/2005 Antibiotics) documented as of this encounter (statuses as of 02/12/2019) Medications End Date Status Medication Sig Dispensed [...] as of this encounter (statuses as of 02/12/2019) Active Problems Problem Noted Date Special screening for malignant neoplasms, colon Overview: Added automatically from request for Hokey Pokey [id number] Cervical spondylosis with radiculopathy 01/01/2019 Overview: Added automatically from request for Hokey Pokey [id number] Mixed hyperlipidemia 08/13/2018 Overview: LDL 140 07/17/2018 Left tennis elbow 06/17/2018 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 Overview: R Avulsion fracture of lateral epicondyle of humerus 0 11/14/2017 Painful patella, unspecified laterality 11/05/2017 S/P revision of total hip 09/18/2017 Colon cancer screening 05/24/2017 Overview: Added automatically from request for Hokey Pokey [id number] Hematemesis with nausea 05/24/2017 Overview: Added automatically from request for Hokey Pokey [id number] Nausea and vomiting, intractability of vomiting not s pecified, unspecified 05/24/2017 vomiting type Overview: Added automatically from request for jimmy solorio [id number] ANJELICA (obstructive sleep apnea) 05/10/2017 Obesity (BMI 30-39.9) 05/01/2017 Microhematuria 02/14/2017 Complex tear of medial meniscus of right knee as curr ent injury, initial 01/18/2017 encounter Overview: Added automatically from request for jimmy solorio [id number] Elevated MCV 07/25/2016 Overview: 103.4 07/22/2016 Muscle [...] lobe nodular opacitiy on chest xray at [facility] 05/22/2015 Hiatus hernia syndrome 04/09/2015 Overview: EGD 03/23/2015 [facility] screening mammogram 01/06/2015 Immunization deficiency 10/09/2014 Overview: [...] lower leg 11/25/2013 Overview: ICD10 Diagnosis Term Obiee [employer] Utility Knee crepitus 11/25/2013 Genu valgum, acquired 11/25/2013 Overview: ICD10 Diagnosis Term Ob[employer] Patellofemoral misalignment with pain 11/25/2013 [...] 11/16/2010 Headache 04/08/2010 Overview: ICD10 Diagnosis Term Ob[employer] Nonerosive nonspecific gastritis 04/08/2010 Overview: EGD Dr. Lloyd Glossitis 02/23/2010 Tobacco use disorder 02/23/2010 Menorrhagia 05/19/2009 Vision blurred 05/19/2009 Acute upper respiratory infection 08/14/2008 Overview: ICD10 Diagnosis Term Ob[employer] Acute pharyngitis 08/14/2008 Screening for malignant neoplasm of cervix 9 Overview: ICD10 Diagnosis Term [employer] Breast screening 07/16/2008 Overview: ICD10 Diagnosis Term Ob[employer] Urinary tract infection, site not specified 04/29/20 08 Backache 06/02/2007 Overview: Lower back pain ICD10 Diagnosis Term [employer] Pain in joint 06/02/2007 Overview: ICD10 Diagnosis Term [employer] Cervicalgia 06/02/2007 Myalgia and myositis 06/02/2007 Overview: Bilateral trapezius pain ICD10 Diagnosis Term [employer] Absence of menstruation 04/25/2007 Anemia 03/25/2007 Overview: ICD10 Diagnosis Term Ob[employer] Helicobacter pylori infection 06/11/2006 Overview: ICD10 Diagnosis Term Ob[employer] Acute peptic ulcer 06/11/2006 Overview: ICD10 Diagnosis Term Ob[employer] Abdominal pain 04/25/2006 Overview: ICD10 Diagnosis Term Ob[employer] Ankylosing spondylitis 04/25/2006 Vaginitis and vulvovaginitis 04/25/2006 Overview: ICD10 Diagnosis Term Ob[employer]e [employer] Utility Other, mixed, or unspecified nondependent drug abuse, continuous 11/30/2005 documented as of this encounter (statuses as of 02/12/2019) Resolved Problems Problem Noted Date Resolved Date Arm laceration, right, subsequent encounter 04/13/2014 04/13/2014 Syncope and collapse 02/27/2007 06/28/2014 Bipolar I disorder, most recent episode (or current) unspec ified 01/03/2007 01/23/2018 Overview: Dr. 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 11/30/2005 02/11/2018 Overview: ICD10 Diagnosis Term Obiee [employer] Utility documented as of this encounter (statuses as of 02/12/2019) Immunizations Name Administration Dates Next Due Influenza [...] Treatment Care Team Description Date Type Specialty Ricco Hannah DO [id number] [place] [address] [phone] Hematemesis with nausea 02/17/2019 Hospital Surgery Encounter Freddy Hannahrinder Tracey DO [address] [place], [place] [address] COLONOSCOPY 02/17/2019 Surgery Surgery Carley Villarreal MD [id number] [place] [address] [phone] 02/18/2019 Appointment Electroneurodiagnos tic Omar Clay, DO [address] [place] [address] [phone], Jennifer Adult Infusion Nurse 02/20/2019 Nurse Visit Infusion Therapy Rosario Joseph MD [address] [place] [phone] 03/04/2019 Office Visit Pulmonary Disease Omar Clay, DO [address] [place] [address] [phone] 03/05/2019 Office Visit Rheumatology Ann-Marie Johnson MD [address] [place] [address] 359238 03/13/2019 Office Visit Family Medicine Jess Tovar MD [address] [place] [address] [phone] 03/13/2019 Office [place] [address] [place] [phone] 03/19/2019 Office Visit Family Medicine Omar Clay DO [address] [place] [address] [phone] 3, Jennifer Adult Infusion Nurse 04/17/2019 Nurse Visit Infusion Therapy Sebastian Doe [id number] [place], [place] [address] 04/30/2019 Office Visit Pain Medicine Ginny Oneal MD [address] [place] [phone] 06/09/2019 Office Visit Gastroenterology Omar Clay DO [address] [place] [address] [phone], Jennifer Adult Infusion Nurse 06/12/2019 Nurse [...] Head, Donal Uhr Bipolar BIPOLAR Right: Hip [place] [id number] #Uh1-44-28 - S0 head Implanted: Qty: 1 on 09/18/2017 by Sebastian Bunn MD at [facility] 07/07/2021 1023-12 / [id number] / [id number] Cancellous Cubes, Community Tissue BONE Right: Hip [facility] Freeze Dried 30 Cc Tissue #1023-12 - [id number] Services Implanted: Qty: 1 on 09/18/2017 by Sebastian Bunn MD at [facility] 03/08/2018 2018-40 / [id number] / [id number] Dbm Putty Maxxeus 10cc Cts #2018-40 BONE Right: Hip [facility] - [id number] Tissue Implanted: Qty: 1 on 09/18/2017 by Services Sebastian Bunn MD at [facility] 04/07/2022 1365-28-720 / 0 / [id number] Delta Ceramic Femoral Head 28mm +5 Head Right: Hip Depuy 06/21 Taper Depuy Ref#[id number] Synthes Implanted: Qty: 1 on 09/18/2017 by Sebastian Bunn MD at [facility] 03/29/2022 623-00-44F / 0 / [id number] Insert, Donal Trident 0deg 44mm Liner Right: Hip [place] #[id number] Implanted: Qty: 1 on 09/18/2017 by Sebastian Bunn MD at [facility] 04/24/2022 5260-5-050 / 0 / [id number] Screw Osteolock [address] SCREW Right: Hip [place] Cancellous 50mm [place] Ref#[id number] Implanted: Qty: 2 on 09/18/2017 by Sebastian Bunn MD at [facility] 06/01/2022 5260-5-020 / 0 / [id number] Screw Ostelock 3.[address] SCREW Right: Hip [place] Cancellous 20mm [place] Ref#[id number] Implanted: Qty: 1 on 09/18/2017 by Sebastian Bunn MD at [facility] 06/01/2022 5260-5-016 / 0 / [id number] Screw Osteolock 3.[address] SCREW Right: Hip [place] Cancellous 18mm Donal Ref#[id number] Implanted: Qty: 1 on 09/18/2017 by Sebastian Bunn MD at [facility] 01/02/2022 509-02-60F / 0 / [id number] Shell, [place] Tritanium Revision Shell Right: Hip Donal Acetabular #509-02-60f - S0 Implanted: Qty: 1 on 09/18/2017 by Sebastian Bunn MD at [facility] documented as of this encounter Results Not on filedocumented in this encounter Insurance Type Payer Benefit Subscriber ID Effective Phone Address Plan / Dates Group Medicare Adv O [facility] [id number] 2018- MANAGED MEDICARE HEALTHCARE Present DUAL COMPLETE HMO [facility] [id number] 2018- [address] SOLUTIONS H Present [address] [place] [address] Medicaid [facility] MEDICAID xxxxxxxxx 2019-P [phone] [address] [place] [id number] [place] [address] documented as of this encounter Advance Directives Patient Family Practitioner Explanation Type Date Recorded 0 Advance Directives 08/08/2013 8:00 AM and Living Will Power of Electronics Department Manager 08/08/2013 8:00 AM
--- OUTSIDE RECORDS SUMMARY | 2019-12-13 15:27 | XMS REPORT | Summary of Care ---
Author Author [facility] - Health Organization [facility] - Health Address Unknown Phone Unavailable Care Team Providers Care Telephone Directory Deliverer Name Role Phone Ovidio Clarke MD PCP Encounter Details Care Team Description Date Type Department Doctor Unassigned, [place] [address] [place] [address] 03/03/2019 Orders Only [facility] [address] [place] [address] Allergies Comments Active Allergy Reactions Severity Noted Date Aspirin Hives 03/21/2012 Sulfa (Sulfonamide Hives 11/29/2005 Antibiotics) documented as of this encounter (statuses as of 03/03/2019) Medications End Date Status Medication Sig Dispensed [...] multiple sites in spine MOUTH ONCE WEEKLY Status Hospital, Clinic, or Ordered Dose Route Frequency Start End Date Other Facility Date Administered Medication Active lactated ringers IV 1000 mL IV Infusion CONTINUOUS infusion 1,000 mL 19 documented as of this encounter (statuses as of 03/03/2019) Active Problems Problem Noted Date Special screening for malignant neoplasms, colon Overview: Added automatically from request for [employer] [id number] Cervical spondylosis with radiculopathy 01/01/2019 Overview: Added automatically from request for [employer] [id number] Mixed hyperlipidemia 08/13/2018 Overview: LDL 140 07/17/2018 Left tennis elbow 06/17/2018 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 Overview: R Avulsion fracture of lateral epicondyle of humerus 0 11/14/2017 Painful patella, unspecified laterality 11/05/2017 S/P revision of total hip 09/18/2017 Colon cancer screening 05/24/2017 Overview: Added automatically from request for [employer] [id number] Hematemesis with nausea 05/24/2017 Overview: Added automatically from request for [employer] [id number] Nausea and vomiting, intractability of vomiting not s pecified, unspecified 05/24/2017 vomiting type Overview: Added automatically from request for [employer] [id number] ANJELICA (obstructive sleep apnea) 05/10/2017 Obesity (BMI 30-39.9) 05/01/2017 Microhematuria 02/14/2017 Complex tear of medial meniscus of right knee as curr ent injury, initial 01/18/2017 encounter Overview: Added automatically from request for jimmy solorio [id number] Elevated MCV 07/25/2016 Overview: 103.4 07/22/2016 Muscle [...] lobe nodular opacitiy on chest xray at [facility] 05/22/2015 Hiatus hernia syndrome 04/09/2015 Overview: EGD 03/23/2015 [facility] screening mammogram 01/06/2015 Immunization deficiency [...] lower leg 11/25/2013 Overview: ICD10 Diagnosis Term Bellows Charger Assembler Utility Knee crepitus 11/25/2013 Genu valgum, acquired 11/25/2013 Overview: ICD10 Diagnosis Term Bellows Charger Assembler Utility Patellofemoral misalignment with pain 11/25/2013 Primary [...] 11/16/2010 Headache 04/08/2010 Overview: ICD10 Diagnosis Term Bellows Charger Assembler Utility Nonerosive nonspecific gastritis 04/08/2010 Overview: EGD Dr. Lloyd Glossitis 02/23/2010 Tobacco use disorder 02/23/2010 Menorrhagia 05/19/2009 Vision blurred 05/19/2009 Acute upper respiratory infection 08/14/2008 Overview: ICD10 Diagnosis Term Bellows Charger Assembler Utility Acute pharyngitis 08/14/2008 Screening for malignant neoplasm of cervix 9 Overview: ICD10 Diagnosis Term Bellows Charger Assembler Utility Breast screening 07/16/2008 Overview: ICD10 Diagnosis Term Bellows Charger Assembler Utility Urinary tract infection, site not specified 04/29/20 08 Backache 06/02/2007 Overview: Lower back pain ICD10 Diagnosis Term Bellows Charger Assembler Utility Pain in joint 06/02/2007 Overview: ICD10 Diagnosis Term Bellows Charger Assembler Utility Cervicalgia 06/02/2007 Myalgia and myositis 06/02/2007 Overview: Bilateral trapezius pain ICD10 Diagnosis Term Bellows Charger Assembler Utility Absence of menstruation 04/25/2007 Anemia 03/25/2007 Overview: ICD10 Diagnosis Term Bellows Charger Assembler Utility Helicobacter pylori infection 06/11/2006 Overview: ICD10 Diagnosis Term Bellows Charger Assembler Utility Acute peptic ulcer 06/11/2006 Overview: ICD10 Diagnosis Term Bellows Charger Assembler Utility Abdominal pain 04/25/2006 Overview: ICD10 Diagnosis Term Bellows Charger Assembler Utility Ankylosing spondylitis 04/25/2006 Vaginitis and vulvovaginitis 04/25/2006 Overview: ICD10 Diagnosis Term Bellows Charger Assembler Utility Other, mixed, or unspecified nondependent drug abuse, continuous 11/30/2005 documented as of this encounter (statuses as of 03/03/2019) Resolved Problems Problem Noted Date Resolved Date Arm laceration, right, subsequent encounter 04/13/2014 04/13/2014 Syncope and collapse 02/27/2007 06/28/2014 Bipolar I disorder, most recent episode (or current) unspec ified 01/03/2007 01/23/2018 Overview: Dr. 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 11/30/2005 02/11/2018 Overview: ICD10 Diagnosis Term Bellows Charger Assembler Utility documented as of this encounter (statuses as of 03/03/2019) Immunizations Name Administration Dates Next Due Influenza [...] Description Date Type Specialty Rosario Joseph MD [address] [place] [phone] 03/04/2019 Office Visit Pulmonary Disease Omar Clay DO [address] [place] [address] [phone] 03/05/2019 Office Visit Rheumatology Daniela Velarde, SENIOR PRODUCTION MANAGER [address] [facility] [address] [place] [address] [phone] 03/12/2019 Office Visit Orthopedic Surgery Jess Tovar MD [address] [place] [address] [phone] 03/13/2019 Office [place] [address] [place] [address] 03/19/2019 Office Visit Family Medicine Ginny Oneal MD [address] [place] [phone] 03/24/2019 Office Visit Gastroenterology Omar Clay, [address] [place] [address] [phone] 3, Jennifer Adult Infusion Nurse 04/17/2019 Nurse Visit Infusion Therapy Sebastian Doe [address] [place], [place] [address] FK[address] [place], [place] [address] 04/30/2019 Office Visit Pain Medicine Ginny Oneal MD [address] [place] [phone] 06/09/2019 Office Visit Gastroenterology Omar Clay DO [address] [place] [address] [phone], Jennifer Adult Infusion Nurse 06/12/2019 Nurse [...] UH1-44-28 / 0 / [id number] Bipolar Head, Provo Uhr Bipolar BIPOLAR Right: Hip [place] [id number] #Uh1-44-28 - S0 head Implanted: Qty: 1 on 09/18/2017 by Sebastian Bunn MD at [facility] 07/07/2021 1023-12 / [id number] / [id number] Cancellous Cubes, Community Tissue BONE Right: Hip [facility] Services Freeze Dried 30 Cc Tissue #1023-12 - [id number] Services Implanted: Qty: 1 on 09/18/2017 by Sebastian Bunn MD at [facility] 03/08/2018 2018-40 / [id number] / [id number] Dbm Putty Maxxeus 10cc Cts #2018-40 BONE Right: Hip [facility] - [id number] Tissue Implanted: Qty: 1 on 09/18/2017 by Services Sebastian Bunn MD at [facility] 04/07/2022 1365-28-720 / 0 / [id number] Delta Ceramic Femoral Head 28mm +5 Head Right: Hip Depuy 06/21 Taper Depuy Ref#[id number] Synthes Implanted: Qty: 1 on 09/18/2017 by Sebastian Bunn MD at [facility] 03/29/2022 623-00-44F / 0 / [id number] Insert, [place] Trident 0deg 44mm Liner Right: Hip Donal #623-00-44f Implanted: Qty: 1 on 09/18/2017 by Sebastian Bunn MD at [facility] 04/24/2022 5260-5-050 / 0 / [id number] Screw Osteolock [address] SCREW Right: Hip Donal Cancellous 50mm Donal Ref#[id number] Implanted: Qty: 2 on 09/18/2017 by Sebastian Bunn MD at [facility] 06/01/2022 5260-5-020 / 0 / [id number] Screw Ostelock 3.[address] SCREW Right: Hip [place] Cancellous 20mm Donal Ref#[id number] Implanted: Qty: 1 on 09/18/2017 by Sebastian Bunn MD at [facility] 06/01/2022 5260-5-016 / 0 / [id number] Screw Osteolock 3.[address] SCREW Right: Hip [place] Cancellous 18mm [place] Ref#[id number] Implanted: Qty: 1 on 09/18/2017 by Sebastian Bunn MD at [facility] 01/02/2022 509-02-60F / 0 / [id number] Shell, [place] Tritanium Revision Shell Right: Hip [place] Acetabular #[id number] - S0 Implanted: Qty: 1 on 09/18/2017 by Sebastian Bunn MD at [facility] documented as of this encounter Procedures Comments Procedure Name Priority Date/Time Associated Diag nosis EXTERNAL PROVIDER RECORDS Routine 03/03/2019 12:01 AM CDT documented in this encounter Results Not on filedocumented in this encounter Insurance Type Payer Benefit Subscriber ID Effective Phone Address Plan / Dates Group Medicare Adv O [employer] [facility] [id number] 2018- MANAGED MEDICARE HEALTHCARE Present DUAL COMPLETE HMO [facility] [employer] [id number] 2018- P O BOX SOLUTIONS H Present [address] [place] [address] Medicaid [place] MEDICAID xxxxxxxxx 2019-P [phone] P O BOX OF [facility] [address] [place] [address] documented as of this encounter Advance Directives 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
--- OUTSIDE RECORDS SUMMARY | 2019-12-13 15:27 | XMS REPORT | Summary of Care ---
Author Author [facility] - Health Organization [facility] - Health Address Unknown Phone Unavailable Care Team Providers Care Oncology Nurse Navigator Name Role Phone Ovidio Clarke MD PCP Reason for Visit * Reason Comments VAGINAL ODOR Encounter Details Care Team Description Date Type Department Frida Rose, DO [address] [place] [address] Vaginal odor (Primary Dx) 01/07/2019 Office Visit [facility], [address], [address] [place] [address] Allergies Comments Active Allergy Reactions Severity [...] Added automatically from request for jimmy solorio [id number] Cervical spondylosis with radiculopathy 01/01/2019 Overview: Added automatically from request for jimmy solorio [id number] Mixed hyperlipidemia 08/13/2018 Overview: LDL 140 07/17/2018 Left tennis elbow 06/17/2018 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 Overview: R Avulsion fracture of lateral epicondyle of humerus 0 11/14/2017 Painful patella, unspecified laterality 11/05/2017 S/P revision of total hip 09/18/2017 Colon cancer screening 05/24/2017 Overview: Added automatically from request for jimmy solorio [id number] Hematemesis with nausea 05/24/2017 Overview: Added automatically from request for jimmy solorio [id number] Nausea and vomiting, intractability of vomiting not s pecified, unspecified 05/24/2017 vomiting type Overview: Added automatically from request for jimmy solorio [id number] ANJELICA (obstructive sleep apnea) 05/10/2017 Obesity (BMI 30-39.9) 05/01/2017 Microhematuria 02/14/2017 Complex tear of medial meniscus of right knee as curr ent injury, initial 01/18/2017 encounter Overview: Added automatically from request for jimmy solorio [id number] Elevated MCV 07/25/2016 Overview: 103.4 07/22/2016 Muscle [...] lobe nodular opacitiy on chest xray at [facility] 05/22/2015 Hiatus hernia syndrome 04/09/2015 Overview: EGD 03/23/2015 [facility] screening mammogram 01/06/2015 Immunization deficiency 10/09/2014 Overview: [...] lower leg 11/25/2013 Overview: ICD10 Diagnosis Term Central Office Inspector Utility Knee crepitus 11/25/2013 Genu valgum, acquired 11/25/2013 Overview: ICD10 Diagnosis Term Central Office Inspector Utility Patellofemoral misalignment with pain 11/25/2013 Primary [...] 11/16/2010 Headache 04/08/2010 Overview: ICD10 Diagnosis Term Central Office Inspector Utility Nonerosive nonspecific gastritis 04/08/2010 Overview: EGD Dr. Lloyd Glossitis 02/23/2010 Tobacco use disorder 02/23/2010 Menorrhagia 05/19/2009 Vision blurred 05/19/2009 Acute upper respiratory infection 08/14/2008 Overview: ICD10 Diagnosis Term Central Office Inspector Utility Acute pharyngitis 08/14/2008 Screening for malignant neoplasm of cervix 9 Overview: ICD10 Diagnosis Term Central Office Inspector Utility Breast screening 07/16/2008 Overview: ICD10 Diagnosis Term Central Office Inspector Utility Urinary tract infection, site not specified 04/29/20 08 Backache 06/02/2007 Overview: Lower back pain ICD10 Diagnosis Term Central Office Inspector Utility Pain in joint 06/02/2007 Overview: ICD10 Diagnosis Term Central Office Inspector Utility Cervicalgia 06/02/2007 Myalgia and myositis 06/02/2007 Overview: Bilateral trapezius pain ICD10 Diagnosis Term Central Office Inspector Utility Absence of menstruation 04/25/2007 Anemia 03/25/2007 Overview: ICD10 Diagnosis Term Central Office Inspector Utility Helicobacter pylori infection 06/11/2006 Overview: ICD10 Diagnosis Term Central Office Inspector Utility Acute peptic ulcer 06/11/2006 Overview: ICD10 Diagnosis Term Central Office Inspector Utility Abdominal pain 04/25/2006 Overview: ICD10 Diagnosis Term Central Office Inspector Utility Ankylosing spondylitis 04/25/2006 Vaginitis and vulvovaginitis 04/25/2006 Overview: ICD10 Diagnosis Term Central Office Inspector Utility Other, mixed, or unspecified nondependent drug [...] eatures 11/30/2005 02/11/2018 Overview: ICD10 Diagnosis Term Central Office Inspector Utility documented as of this encounter (statuses [...] a lung specialist 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 [...] 02/11/2012 Hiatus hernia syndrome 04/09/2015 EGD 03/23/2015 [facility] Immunization deficiency 10/09/2014 She is NOT immune [...] N/A 06/22/2015 Surgeon: Arian To MD; Location: [facility] OR LOCATION FLEXIBLE BRONCHOSCOPY 05/24/2015 Samira, 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 HIP HEMIARTHROPLASTY 2001 Right KNEE ARTHROSCOPY Right 01/06/2014 Surgeon: Girish Fountain MD; Location: [facility] OR LOCATION RI ARTHRS KNE SURG W/MENISCECTOMY MED/LAT W/SHVG 01/06/2014 RI KNEE SCOPE,REMV LOOSE BODY 01/06/2014 TOTAL HIP [...] file Gets together: Not on file Attends quaker service: Not on file Active member of [...] other medications she is taking and potential terminal computer operator hepatic eff ects -avoid douching to prevent recurrences -RTC as needed documented in this encounter Plan of Treatment Care Team Description Date Type Specialty Carley Villarreal MD [address] [facility] [address] [place], [place] [address] 02/18/2019 Appointment Electroneurodiagnos tic Omar Clay DO [address] [place] [phone] 3, Jennifer Adult Infusion Nurse 02/20/2019 Nurse Visit Infusion Therapy Rosario Joseph MD [address] [place] [phone] 03/04/2019 Office Visit Pulmonary Disease Omar Clay, [address] [place] [address] [phone] 03/05/2019 Office Visit Rheumatology Asher Dexter MD [address] [place] [address] [phone] Hematemesis with nausea 03/06/2019 Hospital Surgery Encounter Asher Dexter MD [address] [place], [place] [phone] COLONOSCOPY 03/06/2019 Surgery Surgery Ann-Marie Johnson MD [address] [place] [address] [phone] 03/13/2019 Office Visit Family Medicine Jess Tovar MD [address] [place] [address] [phone] 03/13/2019 Office [place] [address] [place] [phone] 03/19/2019 Office Visit Family Medicine Omar Clay DO [address] [place] [address] [phone], Jennifer Adult Infusion Nurse 04/17/2019 Nurse Visit Infusion Therapy Sebastian Doe [address] [facility] [address] [place], [place] [address] 04/30/2019 Office Visit Pain Medicine Ginny Oneal MD [address] [place] [address]. [place] [phone] 06/09/2019 Office Visit Gastroenterology Omar Clay, DO [address] [place] [address] [phone], Jennifer Adult Infusion Nurse 06/12/2019 Nurse [...] Donal Uhr Bipolar BIPOLAR Right: Hip Donal 20p49oh #Uh1-44-28 - S0 head Implanted: Qty: 1 on 09/18/2017 by Sebastian Bunn MD at [facility] 07/07/2021 1023-12 / [id number] / [id number] Cancellous Cubes, Community Tissue BONE Right: Hip [facility] Services Freeze Dried 30 Cc Tissue #1023-12 - [id number] Services Implanted: Qty: 1 on 09/18/2017 by Sebastian Bunn MD at [facility] 03/08/20182017-40 / [id number] / [id number] Dbm Putty Maxxeus 10cc Cts #2017-40 BONE Right: Hip [facility] - [id number] Tissue Implanted: Qty: 1 on 09/18/2017 by Services Sebastian Bunn MD at [facility] 04/07/2022 1365-28-720 / 0 / [id number] Delta Ceramic Femoral Head 28mm +5 Head Right: Hip Depuy 06/21 Taper Depuy Ref#[id number] Synthes Implanted: Qty: 1 on 09/18/2017 by Sebastian Bunn MD at [facility] 03/29/2022 623-00-44F / 0 / [id number] Insert, [place] Trident 0deg 44mm Liner Right: Hip [place] #623-00-44f Implanted: Qty: 1 on 09/18/2017 by Sebastian Bunn MD at [facility] 04/24/2022 5260-5-050 / 0 / [id number] Screw Osteolock 3.[address] SCREW Right: Hip Donal Cancellous 50mm [place] Ref#[id number] Implanted: Qty: 2 on 09/18/2017 by Sebastian Bunn MD at [facility] 06/01/2022 5260-5-020 / 0 / [id number] Screw Ostelock 3.[address] SCREW Right: Hip [place] Cancellous 20mm [place] Ref#[id number] Implanted: Qty: 1 on 09/18/2017 by Sebastian Bunn MD at [facility] 06/01/2022 5260-5-016 / 0 / [id number] Screw Osteolock 3.[address] SCREW Right: Hip Donal Cancellous 18mm Donal Ref#[id number] Implanted: Qty: 1 on 09/18/2017 by Sebastian Bunn MD at [facility] 01/02/2022 509-02-60F / 0 / [id number] Shell, [place] Tritanium Revision Shell Right: Hip [place] Acetabular #509-02-60f - S0 Implanted: Qty: 1 on 09/18/2017 by Sebastian Bunn MD at [facility] documented as of this encounter Procedures Comments [...] Ph one Number [facility] CLIA: [id number], [address] [place] [address] [facility] documented in this encounter Visit Diagnoses Diagnosis Vaginal odor - Primary Unspecified symptom associated with fem darrian genital organs documented in this encounter Insurance Type Payer Benefit Subscriber ID Effective Phone Address Plan / Dates Group Medicare Adv O [facility] [id number] 2018- MANAGED MEDICARE HEALTHCARE Present DUAL COMPLETE HMO documented as of this encounter 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
--- OUTSIDE RECORDS SUMMARY | 2019-12-13 15:27 | XMS REPORT | Summary of Care ---
Author Author [facility] - Health Organization [facility] - Health Address Unknown Phone Unavailable Care Team Providers Care Sweatband Shaper Name Role Phone Ovidio Clarke MD PCP Reason for Visit * Auth/Cert Referred By Contact Referred To Contact Status Reason Specialty Diagnoses / Procedures Vl Preop [address] [place] [address] Surgery Diagnoses Special screening for malignant neoplasms, colon [Z12.11] Hematemesis with nausea [K92.0] P rocedures AR COLONOSCOPY W/BIOPSY SINGLE/MULTIPLE AR ESOPHAGOGASTRODUOD ENOSCOPY TRANSORAL DIAGNOSTIC COLONOSCOPY ESOPHAGOGASTRODUOD ENOSCOPY Encounter Details Care Team Description Date Type Department Ricco Hannah, DO [id number] [place] [address] Hematemesis with nausea 02/17/2019 Hospital [facility] Encounter Post Anesthesia Care Unit [address] [place] [address] Allergies Comments Active Allergy Reactions Severity Noted Date Aspirin Hives 03/21/2012 Sulfa (Sulfonamide Hives 11/29/2005 Antibiotics) documented as of this encounter (statuses as of 02/17/2019) Medications End Date Status Medication Sig Dispensed Refills Start Date Active hydroCHLOROthiazide 12.5 Take 1 30 capsule 11 0 //201 mg capsuleIndications: capsule by 8 Ankylosing spondylitis, [...] Special screening for colonoscopy malignant neoplasms, colon documented as of this encounter (statuses as of 02/17/2019) Active Problems Problem Noted Date Special screening for malignant neoplasms, colon Overview: Added automatically from request for jimmy solorio [id number] Cervical spondylosis with radiculopathy 01/01/2019 Overview: Added automatically from request for jimmy solorio [id number] Mixed hyperlipidemia 08/13/2018 Overview: LDL 140 07/17/2018 Left tennis elbow 06/17/2018 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 Overview: R Avulsion fracture of lateral epicondyle of humerus 0 11/14/2017 Painful patella, unspecified laterality 11/05/2017 S/P revision of total hip 09/18/2017 Colon cancer screening 05/24/2017 Overview: Added automatically from request for jimmy solorio [id number] Hematemesis with nausea 05/24/2017 Overview: Added automatically from request for jimmy solorio [id number] Nausea and vomiting, intractability of vomiting not s pecified, unspecified 05/24/2017 vomiting type Overview: Added automatically from request for jimmy solorio [id number] ANJELICA (obstructive sleep apnea) 05/10/2017 Obesity (BMI 30-39.9) 05/01/2017 Microhematuria 02/14/2017 Complex tear of medial meniscus of right knee as curr ent injury, initial 01/18/2017 encounter Overview: Added automatically from request for jimmy solorio [id number] Elevated MCV 07/25/2016 Overview: 103.4 07/22/2016 Muscle [...] opacitiy on chest xray at [facility] 05/22/2015 Hiatus hernia syndrome 04/09/2015 Overview: E[place] 03[place]23[place] [facility] [place]/06/2015 Immunization deficiency 10/09/2014 Overview: [...] lower leg 11/25/2013 Overview: ICD10 Diagnosis 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 Lloyd Glossitis 02/23/2010 Tobacco use disorder 02/23/2010 Menorrhagia 05/19/2009 Vision blurred 05/19/2009 Acute upper respiratory infection 08/14/2008 Overview: ICD10 Diagnosis Term Able Se[employer] Acute pharyngitis 08/14/2008 Screening for malignant neoplasm of cervix 9 Overview: ICD10 Diagnosis Term Able [employer] Breast screening 07/16/2008 Overview: ICD10 Diagnosis Term Able [employer] Urinary tract infection, site not specified 04/29/20 08 Backache 06/02/2007 Overview: Lower back pain ICD10 Diagnosis Term Able [employer] Pain in joint 06/02/2007 Overview: ICD10 Diagnosis Term Able [employer] Cervicalgia 06/02/2007 Myalgia and myositis 06/02/2007 Overview: Bilateral trapezius pain ICD10 Diagnosis Term Able [employer] Absence of menstruation 04/25/2007 Anemia 03/25/2007 Overview: ICD10 Diagnosis Term Able [employer] Helicobacter pylori infection 06/11/2006 Overview: ICD10 Diagnosis Term Able [employer] Acute peptic ulcer 06/11/2006 Overview: ICD10 Diagnosis Term Able Se[employer] Abdominal pain 04/25/2006 Overview: ICD10 Diagnosis Term Able [employer] Ankylosing spondylitis 04/25/2006 Vaginitis and vulvovaginitis 04/25/2006 Overview: ICD10 Diagnosis Term Able Se[employer] Other, mixed, or unspecified nondependent drug abuse, continuous 11/30/2005 documented as of this encounter (statuses as of 02/17/2019) Resolved Problems Problem Noted Date Resolved Date Arm laceration, right, subsequent encounter 04/13/2014 04/13/2014 Syncope and collapse 02/27/2007 06/28/2014 Bipolar I disorder, most recent episode (or current) unspec ified 01/03/2007 01/23/2018 Overview: Dr. 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 documented as of this encounter Last Filed Vital Signs Reading Time Taken Comments Vital Sign 123/74 02/17/2019 4:25 PM CDT Blood Pressure 89 02/17/2019 4:25 PM CDT Pulse 36.1 C (97 F) 02/17/2019 4:03 PM CDT Temperature 17 02/17/2019 4:25 PM CDT Respiratory Rate 97% 02/17/2019 4:25 PM CDT Oxygen Saturation - - Inhaled Oxygen Concentration 81.6 kg (180 lb) 02/17/2019 2:12 PM CDT Weight 165.1 cm (5' 5") 02/17/2019 2:12 PM CDT Height 29.95 02/17/2019 2:12 PM CDT Body Mass Index documented in this encounter Discharge Instructions * Instructions* Leslie Munoz RN - 02/17/2019 General Discharge Instructions: Procedure: EGD/ Colonoscopy Combo Your throat may be numb after the procedure. Later, it may also be sore. Do not eat or drink for one hour after the test or until the feeling in your throa t returns. Drink water first and then begin to eat solid foods when you are com fortable. You can use throat lozenges if you need them to soothe any discomfort . Ask the pharmacist to recommend a throat medication for you. The medication you were given for the procedure may make you dizzy or sleepy. Do not drive, operate machinery or walk for long distances in the heat for at least 12 hours. Many patients feel very tired following these procedures and ne ed to rest for several hours. Advance your diet: Once the sensation in your throat has fully returned and can tolerate liquids, you may resume a normal diet but first start with a light meal that is not greasy or fatty. If you are passing gas and this light meal do es not bother your stomach you may continue with a normal diet for the next meal . Resume your home medications. The procedure may cause mild discomfort in the abdominal area, but the pain s hould disappear within several hours. Notify your physician if you have pain or tenderness for more than six hours or if you notice an increase in abdominal si ze. The arm vein where medication was given may be tender. Apply a warm compress . If the pain persists for more than 12 hours, call your doctor. You will probably belch during the first few hours after the exam. Light exe rcise like walking may help relieve bloating or gas pains. Avoid extreme heat w hen you exercise. If you had a polypectomy or a biopsy, you may notice a small amount of red bl ood coming from the rectum. You may also have a small amount of blood in your f irst bowel movement. If bleeding increases, call your doctor. If you had a polypectomy, do not take non-steroidal antiinflammatory medicati ons containing Ibuprofen (such as Nuprin, Motrin, Advil) or medications with Asp irin (such as Bufferin) for 7 days, unless your doctor tells you otherwise. For minor pains, you may use medications that do not contain aspirin or ibuprofen ( such as Tylenol or Datril). Special Instructions: Although these symptoms may not be related to your procedure, call your doctor i mmediately if you- Become short of breath Get dizzy Have a fever Experience chest pain Have rapid or irregular heart rate If you had biopsies your physician will call you with the results in approximate ly one week and advise you of when to follow-up. Contact Information Gastroenterology Department [phone] Colorectal Surgery [phone] After Hours (Non-Urgent Concerns): [facility] Access Line [phone] and ask to devon lang to the physician covering High Fiber Diet (25-30 grams/ day) FRUIT AMOUNT FIBER (gms) VEGETABLES AMOUNT FIBER (gms) Apple with skin 1 medium 5.00 Avocado 1 medium 11.84 Apricot 3 medium 0.98 Beets, cooked 1 cup 2.85 Apricots, dried 5 pieces 2.89 Beet greens 1 cup 4.20 Banana 1 medium 3.92 Bok Chava, cooked 1 cup 2.76 Blueberries 1 cup 4.18 Broccoli, cooked 1 cup 4.5 Cantaloupe, cubes 1 cup 1.28 Brussel Sprouts 1 cup 2.84 Figs, dried 2 medium 3.74 Cabbage, cooked 1 cup 4.20 Grapefruit medium 6.12 Carrot 1 medium 2.00 Emanuel, navel 1 medium 3.40 Carrots, cooked 1 cup 5.22 Alfalfa 1 medium 2.00 Cauliflower, cooked 1 cup 3.43 Peaches, dried 3 pieces 3.18 Shayan Slaw 1 cup 4.00 Pear 1 medium 5.08 [place], sweet 1 cup 4.66 [place] 1 medium 1.00 Green beans 1cup 3.95 Raisins 1.5 oz box 1.60 Celery 1 stalk 1.02 Raspberries 1 cup 8.34 Kale, cooked 1 cup 7.20 Strawberries 1 cup 3.98 Onions, raw 1 cup 2.88 Peas, cooked 1 cup 8.84 CEREAL, GRAINS, PASTA AMOUNT FIBER (gms) Peppers, cooked 1 cup 2.62 Bran Cereal 1 cup 19.94 Pop corn, air popped 3 cups 3.60 Bread, whole wheat 1 slice 2.00 Potato, baked w/ skin 1 medium 4.80 Oats, rolled dry 1 cup 12.00 Spinach, cooked 1 cup 4.32 Pasta, whole wheat 1 cup 6.34 Summer squash 1 cup 2.52 Rice, dry brown 1 cup 7.98 Sweet Potato, cooked 1 cup 5.94 Kosovan Chard, cooked 1 cup 3.68 BEANS, NUTS, SEEDS AMOUNT FIBER (gms) Tomato 1 medium 1.00 Almonds 1 oz 4.22 Winter Squash 1 cup 5.74 Black Beans, cooked 1 cup 14.92 Zucchini, cooked 1 cup 2.63 Cashews 1 oz 1.00 Flax Seeds 3 tbs 6.97 Garbanzo beans, cooked 1 cup 5.80 Kidney beans, cooked 1 cup 13.33 Lentils, red cooked 1 cup 15.64 Gonzalez beans, cooked 1 cup 13.16 Peanuts 1 oz 2.30 Pistachio nuts 1 oz 3.10 Pumpkin seeds cup 4.12 Soybeans, cooked 1 cup 7.62 [place] seeds cup 3.00 Walnuts 1 oz 3.08 General Surgical Discharge Instructions: ? The medication that was used will be acting in your system for the next 24 vero rs, so you might feel a little drowsy, with impaired judgment and/ or motor func tion. This feeling should wear off. Because the medication is still in your sy stem for the next 24 hours you SHOULD NOT:o Drive a car, operate machinery or po wer tools.o Drink any alcoholic beverages.o Make any important decisions or sign any legal documents.? You should rest the remainder of the day and not engage i n any physical activity. YOU ARE RESPONSIBLE FOR HAVING SOMEONE AT HOME WITH YO U DURING THE AFTERNOON AND NIGHT IMMEDIATELY FOLLOWING YOUR SURGERY. Patients s hould cough and deep breathe every 2-4 hours while awake to avoid respiratory co mplications.? Because the medications used could produce some residual nausea an d vomiting after you go home, you should eat lightly today, starting with clear liquids (broth, soft drinks, apple juice, jello) and toast or crackers, progress ing to your normal diet as tolerated. If you get sick, wait a couple of hours a nd then begin to eat. After 24 hours the nausea should be gone. If your nausea persists, call your physician.? You may experience some pain and your physician will advise you on what to take for discomfort. This should be taken as direct ed. If the pain is not relieved, contact your physician. You may also have a s ore throat from the airway/ breathing tube that was in place. You may use lozen ges, throat spray (Chloraseptic), or warm salt water gargles for symptomatic rel ief.? If you are unable to urinate within five hours after your procedure, call your physician.? The type of surgery performed will determine how much bleeding (if any) to expect. Normally, some spotting might occur. If your dressing pad become saturated, notify your physician. Elevate surgical site, if applicable, to reduce swelling and pain.? Preventing a surgical site infection:o Dont smo ke. It is best to quit at least 30 days before surgery, but quitting after surg mandy is also helpful. o If you are a diabetic, keep your blood sugar well controlled. WASH YOUR HANDS . o Keep your wound clean and remember to wash your hands before and after contact with the area. o Call your doctor if you have signs of infection: ? increased tenderness at the surgical site ? red streaks or increased redness of the area ? bad-smelling discharge from the incision ? fever of 101 or higher TOBACCO AVOIDANCE Exposure to tobacco either from smoking or from second hand (environmental)smoke or smokeless tobacco (snuff) is damaging to your health. This information is t o encourage everyone to avoid tobacco exposure. It is recommended that you: If you smoke or use smokeless tobacco, we encourage you to quit. If you have already quit smoking, continue your good work! If you do not smoke or use smokeless tobacco, do not start. Avoid secondhand smoke. Additional Resources: You may want to contact these organizations for further information on smokin g and how to quit- [place] [employer] - http://www.lungusa.org/stop-smoking/ [place] [employer] - http://www.cancer.org/Healthy/StayAwayfromTobacco/i ndex [place] [employer] - http://www.heart.org/HEARTORG/GettingHealthy/Natan tSmoking/Quit-Smoking_[facility]_001085_SubHomePage.jsp documented in this encounter Plan of Treatment Care Team Description Date Type Specialty Carley Villarreal MD [id number] [place], [place] [id number] 02/18/2019 Appointment Electroneurodiagnos tic Omar [place], [address] [place] [address] [phone], Jennifer Adult Infusion Nurse 02/20/2019 Nurse [place] [address] [place] [phone] 03/04/2019 Office Visit Pulmonary Disease Omar [place], [address] [place], [place] [address] 03/05/2019 Office Visit Rheumatology Ann-Marie Johnson MD [address] [place] [phone] 03/13/2019 Office Visit Family Medicine Jess Tovar MD [address] [place], [place] [phone] 03/13/2019 Office [place] [address] [place] [address] 03/19/2019 Office Visit Family Medicine Ginny Oneal MD [address] [place] [phone] 03/24/2019 Office Visit Gastroenterology [place], DO [address] [place] [address] [phone] 3, Jennifer Adult Infusion Nurse 04/17/2019 Nurse Visit Infusion Therapy Nader Sebastian Cowanne [address] [place] [address] [address] [place], [place] [phone] 04/30/2019 Office Visit Pain Medicine Ginny Oneal MD [address] [place] [phone] 06/09/2019 Office Visit Gastroenterology Omar [place], DO [address] [place] [address] [phone] 3, Jennifer Adult Infusion Nurse 06/12/2019 Nurse Visit Infusion Therapy Order Schedule Name Type Priority Associated Diag noses ONCE for 1 Occurrences starting 02/18/20 19 SURGICAL PATHOLOGY EXAM LAB Routine Health Maintenance Due Date Last Done Comments [...] Head, Donal Uhr Bipolar BIPOLAR Right: Hip [place] [id number] #[id number] - S0 head Implanted: Qty: 1 on 09/18/2017 by Sebastian Bunn MD at [facility] 07/07/2021 1023-12 / [id number] / [id number] Cancellous Cubes, Community Tissue BONE Right: Replaced By [facility] Freeze Dried 30 Cc Tissue #1023-12 - [id number] Services Implanted: Qty: 1 on 09/18/2017 by Sebastian Bunn MD at [facility] 03/08/2018 2018-40 / [id number] / [id number] Dbm Putty Maxxeus 10cc Cts #2018-40 BONE Right: [facility] - [id number] Tissue Implanted: Qty: 1 on 09/18/2017 by Services Sebastian Bunn MD at [facility] 04/07/2022 [id number] / 0 / [id number] Delta Ceramic Femoral Head 28mm +5 Head Right: Hip Depuy 06/21 Taper Depuy Ref#[id number] Synthes Implanted: Qty: 1 on 09/18/2017 by Sebastian Bunn MD at [facility] 03/29/2022 [id number] / 0 / [id number] Insert, [place] Trident 0deg 44mm Liner Right: Hip Donal #[id number] Implanted: Qty: 1 on 09/18/2017 by Sebastian Bunn MD at [facility] 04/24/2022 5260-5-050 / 0 / [id number] Screw Osteolock 3.[address] SCREW Right: Hip Donal Cancellous 50mm [place] Ref#[id number] Implanted: Qty: 2 on 09/18/2017 by Sebastian Bunn MD at [facility] 06/01/2022 5260-5-020 / 0 / [id number] Screw Ostelock 3.[address] SCREW Right: Hip Doanl Cancellous 20mm Donal Ref#[id number] Implanted: Qty: 1 on 09/18/2017 by Sebastian Bunn MD at [facility] 06/01/2022 5260-5-016 / 0 / [id number] Screw Osteolock 3.[address] SCREW Right: Hip [place] Cancellous 18mm [place] Ref#[id number] Implanted: Qty: 1 on 09/18/2017 by Sebastian Bunn MD at [facility] 01/02/2022 [id number] / 0 / [id number] Shell, Donal Tritanium Revision Shell Right: Hip [place] Acetabular #[id number] - [id number] Implanted: Qty: 1 on 09/18/2017 by Sebastian Bunn MD at [facility] documented as of this encounter Procedures Comments Procedure Name Priority Date/Time Associated Diag nosis COLONOSCOPY (ENDO) Routine 02/17/2019 3:25 PM CDT EGD (ENDO) Routine 02/17/2019 3:08 PM CDT documented in this encounter Results Not on filedocumented in this encounter Administered Medications Action Date Dose Rate Site Medication Order MAR Action 02/17/2019 3:27 PM CDT 80 mg simethicone (GAS RELIEF) 40 mg/0.6 mL Given drops PRN, Starting Sun02/17/19 at 1527, Unti l Discontinued, Routine, Intra-op Action Date Dose Rate Site Medication Order MAR Action 02/17/2019 2:03 PM CDT 1,000 mL 20 mL/hr lactated ringers IV infusion 1,000 mL New Bag at 20 mL/hr, 1,000 mL, IV Infusion, ONCE, 1 dose, Sun02/17/19 at 1300, Routine, Endo Pre-op documented in this encounter Insurance Type Payer Benefit Subscriber ID Effective Phone Address Plan / Dates Group Medicare Adv [facility] [id number] 2018- MANAGED MEDICARE HEALTHCARE Present DUAL COMPLETE HMO Medicaid [facility] MEDICAID xxxxxxxxx 2019-P [phone] P O [facility] resent [address] [place] [address] ([place]) [place] [address] documented as of this encounter Advance Directives 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
--- OUTSIDE RECORDS SUMMARY | 2019-12-13 15:27 | XMS REPORT | Summary of Care ---
Author Author [facility] - Health Organization [facility] - Health Address Unknown Phone Unavailable Care Team Providers Care Wink Cutter Operator Name Role Phone Ovidio Clarke MD PCP Reason for Referral * Radiology Services (Routine) Referred By Contact Referred To Contact Status Reason Specialty Diagnoses / Procedures Frida Rose, [address] [address] Closed Diagnostic Diagnoses Radiology Vaginal odor P rocedures US PELVIS COMPLETE WITH TRANSVAGINAL Reason for Visit * Reason Comments Vaginal Problem Encounter Details Care Team Description Date Type Department Frida Rose [address] [address] Vaginal odor (Primary Dx) 01/27/2019 Office Visit [facility], [address], [address] [place] [address] Allergies Comments Active Allergy Reactions [...] Added automatically from request for jimmy solorio [id number] Cervical spondylosis with radiculopathy 01/01/2019 Overview: Added automatically from request for jimmy solorio [id number] Mixed hyperlipidemia 08/13/2018 Overview: LDL 140 07/17/2018 Left tennis elbow 06/17/2018 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 Overview: R Avulsion fracture of lateral epicondyle of humerus 0 11/14/2017 Painful patella, unspecified laterality 11/05/2017 S/P revision of total hip 09/18/2017 Colon cancer screening 05/24/2017 Overview: Added automatically from request for jimmy solorio [id number] Hematemesis with nausea 05/24/2017 Overview: Added automatically from request for jimmy solorio [id number] Nausea and vomiting, intractability of vomiting not s pecified, unspecified 05/24/2017 vomiting type Overview: Added automatically from request for jimmy solorio [id number] ANJELICA (obstructive sleep apnea) 05/10/2017 Obesity (BMI 30-39.9) 05/01/2017 Microhematuria 02/14/2017 Complex tear of medial meniscus of right knee as curr ent injury, initial 01/18/2017 encounter Overview: Added automatically from request for jimmy solorio [id number] Elevated MCV 07/25/2016 Overview: 103.4 07/22/2016 Muscle [...] Hiatus hernia syndrome 04/09/2015 Overview: EGD 03/23/2015 [facility] Other screening mammogram 01/06/2015 Immunization deficiency 10/09/2014 [...] lower leg 11/25/2013 Overview: ICD10 Diagnosis Term Rn Pacu Utility Knee crepitus 11/25/2013 Genu valgum, acquired 11/25/2013 Overview: ICD10 Diagnosis Term Rn Pacu Utility Patellofemoral misalignment with pain 11/25/2013 Primary [...] 11/16/2010 Headache 04/08/2010 Overview: ICD10 Diagnosis Term Rn Pacu Utility Nonerosive nonspecific gastritis 04/08/2010 Overview: EGD Dr. Lloyd Glossitis 02/23/2010 Tobacco use disorder 02/23/2010 Menorrhagia 05/19/2009 Vision blurred 05/19/2009 Acute upper respiratory infection 08/14/2008 Overview: ICD10 Diagnosis Term Rn Pacu Utility Acute pharyngitis 08/14/2008 Screening for malignant neoplasm of cervix Overview: ICD10 Diagnosis Term Rn Pacu Utility Breast screening 07/16/2008 Overview: ICD10 Diagnosis Term Rn Pacu Utility Urinary tract infection, site not specified 04/29/20 08 Backache 06/02/2007 Overview: Lower back pain ICD10 Diagnosis Term Rn Pacu Utility Pain in joint 06/02/2007 Overview: ICD10 Diagnosis Term Rn Pacu Utility Cervicalgia 06/02/2007 Myalgia and myositis 06/02/2007 Overview: Bilateral trapezius pain ICD10 Diagnosis Term Rn Pacu Utility Absence of menstruation 04/25/2007 Anemia 03/25/2007 Overview: ICD10 Diagnosis Term Rn Pacu Utility Helicobacter pylori infection 06/11/2006 Overview: ICD10 Diagnosis Term Rn Pacu Utility Acute peptic ulcer 06/11/2006 Overview: ICD10 Diagnosis Term Rn Pacu Utility Abdominal pain 04/25/2006 Overview: ICD10 Diagnosis Term Rn Pacu Utility Ankylosing spondylitis 04/25/2006 Vaginitis and vulvovaginitis 04/25/2006 Overview: ICD10 Diagnosis Term Rn Pacu Utility Other, mixed, or unspecified nondependent drug [...] eatures 11/30/2005 02/11/2018 Overview: ICD10 Diagnosis Term Rn Pacu Utility documented as of this encounter (statuses [...] 02/11/2012 Hiatus hernia syndrome 04/09/2015 EGD 03/23/2015 [facility] Immunization deficiency 10/09/2014 She is NOT immune [...] Right 01/06/2014 Surgeon: Girish Fountain MD; Location: [facility] OR LOCATION ARTHROSCOPIC MENISCAL REPAIR Right 01/06/2014 Surgeon: Girish Fountain MD; Location: [facility] OR LOCATION CERVICAL EPIDURAL STEROID INJECTION 03/26/2012 Surgeon: Maged Franklin MD PHD; Location: [facility] LOCATION CERVICAL EPIDURAL STEROID INJECTION N/A 01/23/2019 Surgeon: Sebastian Doe; Location: [facility] OR Location COLONOSCOPY N/A 06/22/2015 Surgeon: Arian To MD; Location: [facility] OR LOCATION EGD (ENDO) 03/23/2015 [facility] ESOPHAGOGASTRODUODENOSCOPY 04/13 ulcers ESOPHAGOGASTRODUODENOSCOPY 06/15 ESOPHAGOGASTRODUODENOSCOPY 10/07/2009 mild nonerosive gastritis ESOPHAGOGASTRODUODENOSCOPY N/A 06/22/2015 Surgeon: Arian To MD; Location: [facility] OR LOCATION FLEXIBLE BRONCHOSCOPY 05/24/2015 Magui Hogan HIP HEMIARTHROPLASTY 2001 Right KNEE ARTHROSCOPY Right 01/06/2014 Surgeon: Girish Fountain MD; Location: [facility] OR LOCATION IA ARTHRS KNE SURG W/MENISCECTOMY MED/LAT W/SHVG 01/06/2014 [place] KNEE SCOPE,REMV LOOSE BODY 01/06/2014 TOTAL HIP ARTHROPLASTY REVISION Right 09/18/2017 Surgeon: Sebastian Bunn MD; [facility] TUBAL LIG[facility] 1988 Social History [...] file Gets together: Not on file Attends moravian service: Not on file Active member of [...] Description Date Type Specialty Carley Villarreal MD [address] [place] [address] [id number] [place], [place] [phone] 02/18/2019 Appointment Electroneurodiagnos tic Omar Clay DO [address] [place] [address] [phone] 3, Jennifer Adult Infusion Nurse 02/20/2019 Nurse Visit Infusion Therapy Rosario Joseph MD [address] [place] [phone] 03/04/2019 Office Visit Pulmonary Disease Omar Clay DO [address] [place] [address] [phone] 03/05/2019 Office Visit Rheumatology Asher Dextre MD [address] [place] [address] [phone] Hematemesis with nausea 03/06/2019 Hospital Surgery Encounter Asher Dexter MD [address] [place] [address] [phone] COLONOSCOPY 03/06/2019 Surgery Surgery Ann-Marie Johnson MD [address] [place] [address] [phone] 03/13/2019 Office Visit Family Medicine Jess Tovar MD [address] [place] [address] [phone] 03/13/2019 Office [place] [address] [place] [address] 03/19/2019 Office Visit Family Medicine Omar Clay, DO [address] [place] [address] [phone], Jennifer Adult Infusion Nurse 04/17/2019 Nurse Visit Infusion Therapy Sebastian Doe [address] [place] [address] [id number] [place] [address] [phone] 04/30/2019 Office Visit Pain Medicine Ginny Oneal MD [address] [place] [address]. [place] [phone] 06/09/2019 Office Visit Gastroenterology Omar Clay, DO [address] [place] [address] [phone], Jennifer Adult Infusion Nurse 06/12/2019 Nurse [...] Head, Donal Uhr Bipolar BIPOLAR Right: Hip [place] [id number] #Uh1-44-28 - S0 head Implanted: Qty: 1 on 09/18/2017 by Sebastian Bunn MD at [facility] 07/07/2021 1023-12 / [id number] / [id number] Cancellous Cubes, Community Tissue BONE Right: Hip [facility] Services Freeze Dried 30 Cc Tissue #1023-12 - [id number] Services Implanted: Qty: 1 on 09/18/2017 by Sebastian Bunn MD at [facility] 03/08/2018 2018-40 / [id number] / [id number] Dbm Putty Maxxeus 10cc Cts #2018-40 BONE Right: Hip [facility] - [id number] Tissue Implanted: Qty: 1 on 09/18/2017 by Services Sebastian Bunn MD at [facility] 04/07/2022 1365-28-720 / 0 / [id number] Delta Ceramic Femoral Head 28mm +5 Head Right: Hip Depuy 06/21 Taper Depuy Ref#[id number] Synthes Implanted: Qty: 1 on 09/18/2017 by Sebastian Bunn MD at [facility] 03/29/2022 623-00-44F / 0 / [id number] Insert, Donal Trident 0deg 44mm Liner Right: Hip Donal #623-00-44f Implanted: Qty: 1 on 09/18/2017 by Sebastian Bunn MD at [facility] 04/24/2022 5260-5-050 / 0 / [id number] Screw Osteolock 3.[address] SCREW Right: Hip Donal Cancellous 50mm [place] Ref#[id number] Implanted: Qty: 2 on 09/18/2017 by Sebastian Bunn MD at [facility] 06/01/2022 5260-5-020 / 0 / [id number] Screw Ostelock 3.[address] SCREW Right: Hip Donal Cancellous 20mm Donal Ref#[id number] Implanted: Qty: 1 on 09/18/2017 by Sebastian Bunn MD at [facility] 06/01/2022 5260-5-016 / 0 / [id number] Screw Osteolock 3.[address] SCREW Right: Hip [place] Cancellous 18mm Donal Ref#[id number] Implanted: Qty: 1 on 09/18/2017 by Sebastian Bunn MD at [facility] 01/02/2022 509-02-60F / 0 / [id number] Shell, Donal Tritanium Revision Shell Right: Hip Donal Acetabular #[id number] - S0 Implanted: Qty: 1 on 09/18/2017 by Sebastian Bunn MD at [facility] documented as of this encounter Results * [...] performed including color Do ppler evaluation with member services representative images obtained. Spectral Doppler evalu ation [...] was performed including color Doppler evaluation with member services representative images obtained. Spectral Doppler evaluation of [...] The ovaries are within normal limits . I, Ksenia Lorenzo MD., have reviewed this study and agree with the above report. Performing Organization Address City/State/Zipcode Ph one Number PACS/VR/DOSE documented in this encounter Visit Diagnoses Diagnosis Vaginal odor - Primary Unspecified symptom associated with fem darrian genital organs documented in this encounter Insurance Type Payer Benefit Subscriber ID Effective Phone Address Plan / Dates Group Medicare Adv O [facility] [id number] 2018- MANAGED MEDICARE HEALTHCARE Present DUAL COMPLETE HMO ([place]) [place] [address] documented as of this encounter Advance Directives Patient Insurance Application Investigator Explanation Type Date Recorded 0 Advance Directives 08/08/2013 8:00 AM and Living Will Power of Blood Bank Specialist 08/08/2013 8:00 AM
--- OUTSIDE RECORDS SUMMARY | 2019-12-13 15:27 | XMS REPORT | Summary of Care ---
Author Author [facility] - Health Organization [facility] - Health Address Unknown Phone Unavailable Care Team Providers Care Cutter Helper Name Role Phone Ovidio Clarke MD PCP Reason for Visit * (Routine) Referred By Contact Referred To Contact Status Reason Specialty Diagnoses / Procedures Jess Tovar MD [address] [place] [address] Jennifer-Vtc Emg/Ncv Proced [address] [place] [phone] Closed Electroneurodiag Diagnoses nostic Cervicalgia Myofascial pain M54.2 (ICD-10-CM) M79.18 (ICD-10-CM) 32057 53771 P rocedures EMGNCV TN MOTOR &/SENS 5-6 NRV CNDJ PRECONF ELTRODE LIMB TN NEEDLE EMG EA EXTREMTY W/PARASPINL AREA COMPLETE Encounter Details Care Team Description Date Type Department Carley Villarreal MD [address] [place] [address] [phone] 02/18/2019 Hospital [facility] Health Encounter Neurodiagnostics, [address] [phone] Allergies Comments Active Allergy Reactions Severity Noted Date Aspirin Hives 03/21/2012 Sulfa (Sulfonamide Hives 11/29/2005 Antibiotics) documented as of this encounter (statuses as of 02/19/2019) Medications End Date Status Medication Sig Dispensed [...] as of this encounter (statuses as of 02/19/2019) Active Problems Problem Noted Date Special screening for malignant neoplasms, colon Overview: Added automatically from request for jimmy solorio [id number] Cervical spondylosis with radiculopathy 01/01/2019 Overview: Added automatically from request for jimmy solorio [id number] Mixed hyperlipidemia 08/13/2018 Overview: LDL 140 07/17/2018 Left tennis elbow 06/17/2018 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 Overview: R Avulsion fracture of lateral epicondyle of humerus 0 11/14/2017 Painful patella, unspecified laterality 11/05/2017 S/P revision of total hip 09/18/2017 Colon cancer screening 05/24/2017 Overview: Added automatically from request for jimmy solorio [id number] Hematemesis with nausea 05/24/2017 Overview: Added automatically from request for jimmy solorio [id number] Nausea and vomiting, intractability of vomiting not s pecified, unspecified 05/24/2017 vomiting type Overview: Added automatically from request for jimmy solorio [id number] ANJELICA (obstructive sleep apnea) 05/10/2017 Obesity (BMI 30-39.9) 05/01/2017 Microhematuria 02/14/2017 Complex tear of medial meniscus of right knee as curr ent injury, initial 01/18/2017 encounter Overview: Added automatically from request for jimmy solorio [id number] Elevated MCV 07/25/2016 Overview: 103.4 07/22/2016 Muscle [...] Hiatus hernia syndrome 04/09/2015 Overview: EGD 03/23/2015 [facility] screening mammogram 01/06/2015 Immunization deficiency 10/09/2014 Overview: [...] lower leg 11/25/2013 Overview: ICD10 Diagnosis Term Branch Billing Payroll Clerk Utility Knee crepitus 11/25/2013 Genu valgum, acquired 11/25/2013 Overview: ICD10 Diagnosis Term Branch Billing Payroll Clerk Utility Patellofemoral misalignment with pain 11/25/2013 Primary [...] 11/16/2010 Headache 04/08/2010 Overview: ICD10 Diagnosis Term Branch Billing Payroll Clerk Utility Nonerosive nonspecific gastritis 04/08/2010 Overview: EGD Dr. Lloyd Glossitis 02/23/2010 Tobacco use disorder 02/23/2010 Menorrhagia 05/19/2009 Vision blurred 05/19/2009 Acute upper respiratory infection 08/14/2008 Overview: ICD10 Diagnosis Term Branch Billing Payroll Clerk Utility Acute pharyngitis 08/14/2008 Screening for malignant neoplasm of cervix 9 Overview: ICD10 Diagnosis Term Branch Billing Payroll Clerk Utility Breast screening 07/16/2008 Overview: ICD10 Diagnosis Term Branch Billing Payroll Clerk Utility Urinary tract infection, site not specified 04/29/20 08 Backache 06/02/2007 Overview: Lower back pain ICD10 Diagnosis Term Branch Billing Payroll Clerk Utility Pain in joint 06/02/2007 Overview: ICD10 Diagnosis Term Branch Billing Payroll Clerk Utility Cervicalgia 06/02/2007 Myalgia and myositis 06/02/2007 Overview: Bilateral trapezius pain ICD10 Diagnosis Term Branch Billing Payroll Clerk Utility Absence of menstruation 04/25/2007 Anemia 03/25/2007 Overview: ICD10 Diagnosis Term Branch Billing Payroll Clerk Utility Helicobacter pylori infection 06/11/2006 Overview: ICD10 Diagnosis Term Branch Billing Payroll Clerk Utility Acute peptic ulcer 06/11/2006 Overview: ICD10 Diagnosis Term Branch Billing Payroll Clerk Utility Abdominal pain 04/25/2006 Overview: ICD10 Diagnosis Term Branch Billing Payroll Clerk Utility Ankylosing spondylitis 04/25/2006 Vaginitis and vulvovaginitis 04/25/2006 Overview: ICD10 Diagnosis Term Branch Billing Payroll Clerk Utility Other, mixed, or unspecified nondependent drug abuse, continuous 11/30/2005 documented as of this encounter (statuses as of 02/19/2019) Resolved Problems Problem Noted Date Resolved Date Arm laceration, right, subsequent encounter 04/13/2014 04/13/2014 Syncope and collapse 02/27/2007 06/28/2014 Bipolar I disorder, most recent episode (or current) unspec ified 01/03/2007 01/23/2018 Overview: Dr. 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 11/30/2005 02/11/2018 Overview: ICD10 Diagnosis Term Branch Billing Payroll Clerk Utility documented as of this encounter (statuses as of 02/19/2019) Immunizations Name Administration Dates Next Due Influenza [...] Treatment Care Team Description Date Type Specialty Omar Clay DO [address] [place] [address] [phone], Jennifer Adult Infusion Nurse 02/20/2019 Nurse Visit Infusion Therapy Rosario Joseph MD [address] [place] [phone] 03/04/2019 Office Visit Pulmonary Disease Omar Clay DO [address] [place] [address] [phone] 03/05/2019 Office Visit Rheumatology Ann-Marie Johnson MD [address] [place] [address] [phone] 03/13/2019 Office Visit Family Medicine Jess Tovar MD [address] [place] [address] [phone] 03/13/2019 Office [place] [address] [place] [address] 03/19/2019 Office Visit Family Medicine Ginny Oneal MD [address] [place] [phone] 03/24/2019 Office Visit Gastroenterology Omar Clay DO [address] [place] [address] [phone], Jennifer Adult Infusion Nurse 04/17/2019 Nurse Visit Infusion Therapy Sebastian Doe [address] [facility] [id number] [place] [address] 04/30/2019 Office Visit Pain Medicine Ginny Oneal MD [address] [place], [place] [address] [address] 06/09/2019 Office Visit Gastroenterology Omar Clay, [address] [place] [address] [phone] 3, Jennifer Adult Infusion Nurse 06/12/2019 Nurse [...] UH1-44-28 / 0 / [id number] Bipolar Head, Parker Uhr Bipolar BIPOLAR Right: Hip [place] 40b30qy #Uh1-44-28 - S0 head Implanted: Qty: 1 on 09/18/2017 by Sebastian Bunn MD at [facility] 07/07/2021 1023-12 / [id number] / [id number] Cancellous Cubes, Community Tissue BONE Right: Hip [facility] Freeze Dried 30 Cc Tissue #1023-12 - [id number] Services Implanted: Qty: 1 on 09/18/2017 by Sebastian Bunn MD at [facility] 03/08/2018 2018-40 / [id number] / [id number] Dbm Putty Maxxeus 10cc Cts #2017- BONE Right: Hip [facility] - [id number] Tissue Implanted: Qty: 1 on 09/18/2017 by Services Sebastian Bunn MD at [facility] 04/07/2022 1365-28-720 / 0 / [id number] Delta Ceramic Femoral Head 28mm +5 Head Right: Hip Depuy /14 Taper Depuy Ref#[id number] Synthes Implanted: Qty: 1 on 09/18/2017 by Sebastian Bunn MD at [facility] 03/29/2022 623-00-44F / 0 / [id number] Insert, Parker Trident 0deg 44mm Liner Right: Hip Donal #623-00-44f Implanted: Qty: 1 on 09/18/2017 by Sebastian Bunn MD at [facility] 04/24/2022 5260-5-050 / 0 / [id number] Screw Osteolock 3.[address] SCREW Right: Hip [place] Cancellous 50mm [place] Ref#[id number] Implanted: Qty: 2 on 09/18/2017 by Sebastian Bunn MD at [facility] 06/01/2022 5260-5-020 / 0 / [id number] Screw Ostelock 3.[address] SCREW Right: Hip [place] Cancellous 20mm [place] Ref#[id number] Implanted: Qty: 1 on 09/18/2017 by Sebastian Bunn MD at [facility] 06/01/2022 5260-5-016 / 0 / [id number] Screw Osteolock 3.[address] SCREW Right: Hip [place] Cancellous 18mm [place] Ref#[id number] Implanted: Qty: 1 on 09/18/2017 by Sebastian Bunn MD at [facility] 01/02/2022 509-02-60F / 0 / [id number] Shell, Donal Tritanium Revision Shell Right: Hip [place] Acetabular #[id number] - S0 Implanted: Qty: 1 on 09/18/2017 by Sebastian Bunn MD at [facility] documented as of this encounter Procedures Comments Procedure Name Priority Date/Time Associated Diag nosis EMG/NCV Routine 02/18/2019 12:01 AM CDT documented in this encounter Results Not on filedocumented in this encounter Insurance Type Payer Benefit Subscriber ID Effective Phone Address Plan / Dates Group Medicare Adv [facility] [id number] 2018- MANAGED MEDICARE HEALTHCARE Present DUAL COMPLETE O Medicaid [facility] MEDICAID xxxxxxxxx 2019-P [phone] P O [facility] [id number] [place] [address] documented as of this encounter Advance Directives Patient Underwriting Support Manager Explanation Type Date Recorded 0 Advance Directives 08/08/2013 8:00 AM and Living Will Power of Plug Assembler 08/08/2013 8:00 AM
--- OUTSIDE RECORDS SUMMARY | 2019-12-13 15:28 | XMS REPORT | Summary of Care ---
Author Author [facility] - Health Organization [facility] - Health Address Unknown Phone Unavailable Care Team Providers Care Telecommunications Consultant Name Role Phone Ovidio Clarke MD PCP Encounter Details Care Team Description Date Type Department Doctor Unassigned, [place] [address] [place] [address] 03/18/2019 Orders Only [facility] [address] [place] [address] Allergies Comments Active Allergy Reactions Severity Noted Date Aspirin Hives 03/21/2012 Sulfa (Sulfonamide Hives 11/29/2005 Antibiotics) documented as of this encounter (statuses as of 03/18/2019) Medications End Date Status Medication Sig Dispensed [...] Cervicalgia, Myofascial (three) times pain daily. Active ondansetron 4 mg DISSOLVE ONE 0 disintegrating tablet TAB IN MOUTH 9 EVERY 8 HOURS NEEDED FOR NAUSEA FOR UP TO 30 DAYS Active omeprazole 40 mg capsule Take 40 mg by 0 mouth. Active proMETHazine 12.5 mg Take 1 tablet [...] 9 tabletIndications: daily. Insomnia, unspecified type Active peg-electrolyte soln Take as 4000 mL 0 02/03 236-22.74-6.74 -5.86 gram directed 9 solutionIndications: before Special screening for colonoscopy malignant neoplasms, colon Active methotrexate 2.5 mg Take by mouth 60 tablet 0 / tabletIndications: TAKE 5 9 Ankylosing spondylitis of TABLETS BY multiple sites in spine MOUTH ONCE WEEKLY Active Diclofenac Sodium 1 % APPLY 100 g 0 gelIndications: Painful EXTERNALLY TO 9 patella, unspecified THE AFFECTED laterality, Primary AREA FOUR localized osteoarthrosis, TIMES DAILY lower leg, unspecified NEEDED FOR laterality, Muscle PAIN weakness of lower extremity, Effusion of lower leg joint, Knee crepitus, unspecified laterality, Patellofemoral instability of right knee with pain Status Hospital, Clinic, or Ordered Dose Route Frequency Start End Date Other Facility Date Administered Medication Active lactated ringers IV 1000 mL IV Infusion CONTINUOUS infusion 1,000 mL 19 documented as of this encounter (statuses as of 03/18/2019) Active Problems Problem Noted Date Special screening for malignant neoplasms, colon Overview: Added automatically from request for jimmy solorio [id number] Cervical spondylosis with radiculopathy 01/01/2019 Overview: Added automatically from request for jimmy solorio [id number] Mixed hyperlipidemia 08/13/2018 Overview: LDL 140 07/17/2018 Left tennis elbow 06/17/2018 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 Overview: R Avulsion fracture of lateral epicondyle of humerus 0 11/14/2017 Painful patella, unspecified laterality 11/05/2017 S/P revision of total hip 09/18/2017 Colon cancer screening 05/24/2017 Overview: Added automatically from request for jimmy solorio [id number] Hematemesis with nausea 05/24/2017 Overview: Added automatically from request for jimmy solorio [id number] Nausea and vomiting, intractability of vomiting not s pecified, unspecified 05/24/2017 vomiting type Overview: Added automatically from request for jimmy solorio [id number] ANJELICA (obstructive sleep apnea) 05/10/2017 Obesity (BMI 30-39.9) 05/01/2017 Microhematuria 02/14/2017 Complex tear of medial meniscus of right knee as curr ent injury, initial 01/18/2017 encounter Overview: Added automatically from request for jimmy solorio [id number] Elevated MCV 07/25/2016 Overview: 103.4 07/22/2016 Muscle [...] lobe nodular opacitiy on chest xray at [facility] 05/22/2015 Hiatus hernia syndrome 04/09/2015 Overview: EGD 03/23/2015 [facility] screening mammogram 01/06/2015 Immunization deficiency 10/09/2014 Overview: [...] lower leg 11/25/2013 Overview: ICD10 Diagnosis 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 Pain in joint 06/02/2007 Overview: ICD10 Diagnosis Term 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 Cervicalgia 06/02/2007 Myalgia and myositis 06/02/2007 Overview: Bilateral trapezius pain ICD10 Diagnosis Term 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 Absence of menstruation 04/25/2007 Anemia 03/25/2007 Overview: ICD10 Diagnosis Term 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 Helicobacter pylori infection 06/11/2006 Overview: ICD10 Diagnosis Term 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 Acute peptic ulcer 06/11/2006 Overview: ICD10 Diagnosis Term 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 Abdominal pain 04/25/2006 Overview: ICD10 Diagnosis Term 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 Ankylosing spondylitis 04/25/2006 Vaginitis and vulvovaginitis 04/25/2006 Overview: ICD10 Diagnosis Term 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 Other, mixed, or unspecified nondependent drug abuse, continuous 11/30/2005 documented as of this encounter (statuses as of 03/18/2019) Resolved Problems Problem Noted Date Resolved Date Arm laceration, right, subsequent encounter 04/13/2014 04/13/2014 Syncope and collapse 02/27/2007 06/28/2014 Bipolar I disorder, most recent episode (or current) unspec ified 01/03/2007 01/23/2018 Overview: Dr. 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 [place] [phone] 03/24/2019 Office Visit Gastroenterology Ovidio Verma MD [address] [place], [place] [phone] 04/02/2019 Office Visit Orthopedic Surgery Omar Clay DO [address] [place] [address] [phone], Jennifer Adult Infusion Nurse 04/17/2019 Nurse Visit Infusion Therapy Sebastian Doe [address] [facility] [address] [place] [address] [phone] 04/30/2019 Office Visit Pain Medicine Ginny Oneal MD [address] [place] [phone] 06/09/2019 Office Visit Gastroenterology Omar Clay DO [address] [place] [address] [phone], Jennifer Adult Infusion Nurse 06/12/2019 Nurse [...] UH1-44-28 / 0 / [id number] Bipolar Head, Reading Uhr Bipolar BIPOLAR Right: Hip Donal 87o80wz #Uh1-44-28 - S0 head Implanted: Qty: 1 on 09/18/2017 by Sebastian Bunn MD at [facility] 07/07/2021 1023-12 / [id number] / [id number] Cancellous Cubes, Community Tissue BONE Right: Hip [facility] Services Freeze Dried 30 Cc Tissue #1023-12 - [id number] Services Implanted: Qty: 1 on 09/18/2017 by Sebastian Bunn MD at [facility] 03/08/2018 2018-40 / [id number] / [id number] Dbm Putty Maxxeus 10cc Cts #2018-40 BONE Right: Hip [facility] - [id number] Tissue Implanted: Qty: 1 on 09/18/2017 by Services Sebastian Bunn MD at [facility] 04/07/2022 1365-28-720 / 0 / [id number] Delta Ceramic Femoral Head 28mm +5 Head Right: Hip Depuy 06/21 Taper Depuy Ref#[id number] Synthes Implanted: Qty: 1 on 09/18/2017 by Sebastian Bunn MD at [facility] 03/29/2022 623-00-44F / 0 / [id number] Insert, Reading Trident 0deg 44mm Liner Right: Hip Reading #[id number] Implanted: Qty: 1 on 09/18/2017 by Sebastian Bunn MD at [facility] 04/24/2022 5260-5-050 / 0 / [id number] Screw Osteolock [address] SCREW Right: Hip Donal Cancellous 50mm Donal Ref#[id number] Implanted: Qty: 2 on 09/18/2017 by Sebastian Bunn MD at [facility] 06/01/2022 5260-5-020 / 0 / [id number] Screw Ostelock 3.[address] SCREW Right: Hip Donal Cancellous 20mm Reading Ref#[id number] Implanted: Qty: 1 on 09/18/2017 by Sebastian Bunn MD at [facility] 06/01/2022 5260-5-016 / 0 / [id number] Screw Osteolock 3.[address] SCREW Right: Hip Reading Cancellous 18mm Reading Ref#[id number] Implanted: Qty: 1 on 09/18/2017 by Sebastian Bunn MD at [facility] 01/02/2022 509-02-60F / 0 / [id number] Shell, Reading Tritanium Revision Shell Right: Hip Reading Acetabular #509-02-60f - S0 Implanted: Qty: 1 on 09/18/2017 by Sebastian Bunn MD at [facility] documented as of this encounter Procedures Comments Procedure Name Priority Date/Time Associated Diag nosis EXTERNAL PROVIDER RECORDS Routine 03/18/2019 12:01 AM CDT documented in this encounter Results Not on filedocumented in this encounter Insurance Type Payer Benefit Subscriber ID Effective Phone Address Plan / Dates Group Medicare Adv O [facility] [id number] 2018- MANAGED MEDICARE HEALTHCARE Present DUAL COMPLETE HMO [facility] [employer] [id number] 2018- [address] BOX SOLUTIONS Present [address] [place] [address] Medicaid [facility] MEDICAID xxxxxxxxx 2019-P [phone] [address] [place] [facility] [id number] [place] [address] documented as of this encounter 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
--- OUTSIDE RECORDS SUMMARY | 2019-12-13 15:28 | XMS REPORT | Summary of Care ---
Author Author [facility] - Health Organization [facility] - Health Address Unknown Phone Unavailable Care Team Providers Care Oracle E Business Developer Name Role Phone Ovidio Clarke MD PCP Reason for Visit * Reason Comments Hand Pain bi * (Routine) Referred By Contact Referred To Contact Status Reason Specialty Diagnoses / Procedures Jess Tovar MD [address] [place] [address] Closed Orthopedic Diagnoses Surgery Cervicalgia Bilateral carpal tunnel syndrome P rocedures CONSULT/REFERRAL ORTHOPAEDIC SURGERY Encounter Details Care Team Description Date Type Department Daniela Velarde, CHIEF ACCOUNTANT [address] [facility] [address] [place] [address] Bilateral carpal tunnel syndrome (Primar y Dx) 03/12/2019 Office Visit [facility] edic Surgery- [address], [address] [place] [address] Allergies Comments Active Allergy Reactions Severity Noted Date Aspirin Hives 03/21/2012 Sulfa (Sulfonamide Hives 11/29/2005 Antibiotics) documented as of this encounter (statuses as of 03/12/2019) Medications End Date Status Medication Sig Dispensed [...] as of this encounter (statuses as of 03/12/2019) Active Problems Problem Noted Date Special screening for malignant neoplasms, colon Overview: Added automatically from request for marquez Fidzup [id number] Cervical spondylosis with radiculopathy 01/01/2019 Overview: Added automatically from request for marquez Fidzup [id number] Mixed hyperlipidemia 08/13/2018 Overview: LDL 140 07/17/2018 Left tennis elbow 06/17/2018 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 Overview: R Avulsion fracture of lateral epicondyle of humerus 0 11/14/2017 Painful patella, unspecified laterality 11/05/2017 S/P revision of total hip 09/18/2017 Colon cancer screening 05/24/2017 Overview: Added automatically from request for [employer] [id number] Hematemesis with nausea 05/24/2017 Overview: Added automatically from request for marquez Fidzup [id number] Nausea and vomiting, intractability of vomiting not s pecified, unspecified 05/24/2017 vomiting type Overview: Added automatically from request for [employer] [id number] ANJELICA (obstructive sleep apnea) 05/10/2017 Obesity (BMI 30-39.9) 05/01/2017 Microhematuria 02/14/2017 Complex tear of medial meniscus of right knee as curr ent injury, initial 01/18/2017 encounter Overview: Added automatically from request for jimmy solorio [id number] Elevated MCV 07/25/2016 Overview: 103.4 07/22/2016 Muscle [...] opacitiy on chest xray at [facility] 05/22/2015 Hiatus hernia syndrome 04/09/2015 Overview: EGD 03/23/2015 [facility] screening mammogram 01/06/2015 Immunization deficiency 10/09/2014 Overview: [...] lower leg 11/25/2013 Overview: ICD10 Diagnosis Term Back Up Worker Utility Knee crepitus 11/25/2013 Genu valgum, acquired 11/25/2013 Overview: ICD10 Diagnosis Term Back Up Worker Utility Patellofemoral misalignment with pain 11/25/2013 Primary [...] 11/16/2010 Headache 04/08/2010 Overview: ICD10 Diagnosis Term Back Up Worker Utility Nonerosive nonspecific gastritis 04/08/2010 Overview: EGD Dr. Lloyd Glossitis 02/23/2010 Tobacco use disorder 02/23/2010 Menorrhagia 05/19/2009 Vision blurred 05/19/2009 Acute upper respiratory infection 08/14/2008 Overview: ICD10 Diagnosis Term Back Up Worker Utility Acute pharyngitis 08/14/2008 Screening for malignant neoplasm of cervix Overview: ICD10 Diagnosis Term Back Up Worker Utility Breast screening 07/16/2008 Overview: ICD10 Diagnosis Term Back Up Worker Utility Urinary tract infection, site not specified 04/29/20 08 Backache 06/02/2007 Overview: Lower back pain ICD10 Diagnosis Term Back Up Worker Utility Pain in joint 06/02/2007 Overview: ICD10 Diagnosis Term Back Up Worker Utility Cervicalgia 06/02/2007 Myalgia and myositis 06/02/2007 Overview: Bilateral trapezius pain ICD10 Diagnosis Term Back Up Worker Utility Absence of menstruation 04/25/2007 Anemia 03/25/2007 Overview: ICD10 Diagnosis Term Back Up Worker Utility Helicobacter pylori infection 06/11/2006 Overview: ICD10 Diagnosis Term Back Up Worker Utility Acute peptic ulcer 06/11/2006 Overview: ICD10 Diagnosis Term Back Up Worker Utility Abdominal pain 04/25/2006 Overview: ICD10 Diagnosis Term Back Up Worker Utility Ankylosing spondylitis 04/25/2006 Vaginitis and vulvovaginitis 04/25/2006 Overview: ICD10 Diagnosis Term Back Up Worker Utility Other, mixed, or unspecified nondependent drug abuse, continuous 11/30/2005 documented as of this encounter (statuses as of 03/12/2019) Resolved Problems Problem Noted Date Resolved Date Arm laceration, right, subsequent encounter 04/13/2014 04/13/2014 Syncope and collapse 02/27/2007 06/28/2014 Bipolar I disorder, most recent episode (or current) unspec ified 01/03/2007 01/23/2018 Overview: Dr. 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 11/30/2005 02/11/2018 Overview: ICD10 Diagnosis Term Back Up Worker Utility documented as of this encounter (statuses as of 03/12/2019) Immunizations Name Administration Dates Next Due Influenza [...] Signs Reading Time Taken Comments Vital Sign - - Blood Pressure - - Pulse 35.5 C (95.9 F) 03/12/2019 1:58 PM CDT Temperature - - Respiratory Rate - - Oxygen Saturation - - Inhaled Oxygen Concentration 88.9 kg (196 lb) 03/12/2019 1:58 PM CDT Weight - - Height 32.62 02/17/2019 2:12 PM CDT Body Mass Index documented in this encounter Progress Notes * Daniela Velarde FNP - 03/12/2019 2:00 PM CDT Orthopaedic Clinic Note Chief Complaint: bilateral hand numbness History of Present Illness: 03/12/19 : Juan Tinoco is a right hand dominant 53 year old female who prese nts to clinic with complains of bilateral hand numbness. This has been going on patient reports since fall after right hip surgery in 2018. The numbness is in b ilateral hands involving all digits. Patient also endorses bilateral hand trigge r fingers since then. Past Medical History: Past Medical History: Diagnosis Date Abdominal pain [...] veins of legs 11/16/2010 Vision blurred 05/19/2009 Past Surgical History: Past Surgical History: Procedure Laterality Date ABDOMINAL HYSTERECTOMY 11/15/2009 Dr. Ro ARTHROSCOPIC FOREIGN BODY REMOVAL (SHX) Right 01/06/2014 Surgeon: Girish Fountain MD; Location: [facility] OR LOCATION ARTHROSCOPIC MENISCAL REPAIR Right 01/06/2014 Surgeon: Girish Fountain MD; Location: [facility] OR LOCATION CERVICAL EPIDURAL STEROID INJECTION 03/26/2012 Surgeon: Maged Franklin MD PHD; Location: [facility] OR LOCATION CERVICAL EPIDURAL STEROID INJECTION N/A 01/23/2019 Surgeon: Sebastian Doe; Location: [facility] Location COLONOSCOPY N/A 06/22/2015 Surgeon: Arian To MD; Location: [facility] LOCATION COLONOSCOPY N/A 02/17/2019 Surgeon: Ricco Hannah DO; Location: [facility] Location EGD (ENDO) 03/23/2015 [facility] [place] [facility] ESOPHAGOGASTRODUODENOSCOPY 04/13 ulcers ESOPHAGOGASTRODUODENOSCOPY 06/15 ESOPHAGOGASTRODUODENOSCOPY 10/07/2009 mild nonerosive gastritis ESOPHAGOGASTRODUODENOSCOPY N/A 06/22/2015 Surgeon: Arian To MD; Location: [facility] OR [facility] ESOPHAGOGASTRODUODENOSCOPY N/A 02/17/2019 Surgeon: Ricco Hannah DO; Location: [facility] Location FLEXIBLE BRONCHOSCOPY 05/24/2015 Magui Hogan HIP HEMIARTHROPLASTY 2001 Right KNEE ARTHROSCOPY Right 01/06/2014 Surgeon: Girish Fountain MD; Location: [facility] OR LOCATION PA ARTHRS KNE SURG W/MENISCECTOMY MED/LAT W/SHVG 01/06/2014 PA KNEE SCOPE,REMV LOOSE BODY 01/06/2014 TOTAL HIP ARTHROPLASTY REVISION Right 09/18/2017 Surgeon: Sebastian Bunn MD; Location: [facility] TUBAL LIGATION 1987 Social History: Social History Socioeconomic History Marital status: Single [...] file Gets together: Not on file Attends congregational service: Not on file Active member of [...] file Social History Narrative Not on file Family History: Family History not pertinent to this encounter. Current Medications: Current Outpatient Medications Medication Sig Dispense Refill Diclofenac Sodium 1 % gel APPLY EXTERNALLY TO THE AFFECTED AREA FOUR TIMES D AILY NEEDED FOR PAIN 100 g 0 methotrexate 2.5 mg tablet Take by mouth TAKE 5 TABLETS BY MOUTH ONCE WEEKLY 60 tablet 0 peg-electrolyte soln 236-22.74-6.74 -5.86 gram solution Take as directed bef ore colonoscopy 4000 mL 0 desvenlafaxine succinate 50 mg 24 hr tablet Take 1 tablet by mouth daily. 30 tablet 5 paliperidone 9 mg 24 hr tablet Take 1 tablet by mouth daily. 30 tablet 5 zolpidem (AMBIEN) 10 mg tablet Take 1 tablet by mouth at bedtime as needed f or Insomnia. 30 tablet 5 acetaminophen-codeine 300-30 mg tablet Take 1 tablet by mouth every 8 (eight ) hours as needed for Pain (scale 7-10). 15 tablet 0 proMETHazine 12.5 mg tablet Take 1 tablet by mouth every 4 (four) hours as n eeded for Nausea and Vomiting (N/V). 12 tablet 0 omeprazole 40 mg capsule Take 40 mg by mouth. ondansetron 4 mg disintegrating tablet DISSOLVE ONE TAB IN MOUTH EVERY 8 MACKENZIE RS NEEDED FOR NAUSEA FOR UP TO 30 DAYS 0 gabapentin 600 mg tablet Take 1 [...] for Pain (scale 4-6). 120 tablet 0 miconazole (MICONAZOLE 7) 2 % [...] 1,000 mL 1,000 mL IV Infusion CONTINUOUS Allergies: Allergies Allergen Reactions Aspirin Hives Sulfa (Sulfonamide Antibiotics) Hives Review of Systems: Patient reports Numbness Stomach ulcers Patient denies Weight loss Heart problems Urinary problems Anxiety/depression Immune disease Vision problems Lung problems Skin problems Diabetes Cancer Difficulty Hearing Blood clots or bleeding Physical Examination: Vitals: Vitals: 03/12/19 1358 Temp: 35.5 C (95.9 F) TempSrc: Temporal Artery Weight: 88.9 kg (196 lb) Body mass index is 32.62 kg/m. No results found for: [id number] No components found for: A1C Constitutional: No apparent distress, well-nourished Cardiovascular: Radial pulses 2+ bilaterally, capillary refill < 3 seconds Pulmonary: Spontaneous breathing, on room air Abdominal: non distended, soft Neurological: No focal deficits Lymphatic: No observed lymph nodes, no observed streaks Integumentary: warm, dry Psychiatric: Alert and oriented x 3, hyperverbal Muskuloskeletal: bilateral hand numbness: Skin: warm, dry, intact, normal color for ethnicity Appearance of Limb: No obvious deformity Neurovascular: Motor grossly intact M/AIN/U/R/PIN Radial pulse 2+ Capillary refill < 3 seconds Imaging: X-Ray 03/12/19: No new EMG 02/18/19: Conclusions: Abnormal study. Electrodiagnostic evidence of mild to moderate right median neuropathy a t wrist. Very mild left median neuropathy at wrist. Mild chronic denervation changes in the muscles innervated by right C7-8 roots without active ongoing denervation. Notes / Recommendations: Imaging of the cervical spine. Assessment: Juan Tinoco is a 53 year old female with: ICD-10-CM ICD-9-CM 1. Bilateral carpal tunnel syndrome G56.03 354.0 Plan - Reviewed current imaging studies in addition to previous imaging for compariso n, if applicable. - Educated patient on condition present and answered all questions to patient's satisfaction. - Patient is being treated with SHANI for cervical spondylosis with radiculopathy, patient reports this helps her neck pain less than 50% relief. I asked the king ent twice if this helped the numbness in her hands and both times Ms. Tinoco did not answer but reports "I have an appointment with neurology tomorrow for that." - Clinic encounter, HPI, assessment, and plan of care limited due to: Patient reports that her time is being wasted and that she needed to be schedule d with the physician. Patient states "you don't know the pain I feel. I am cryin g inside." Patient reports she needs this fixed. I apologized to Ms. Tinoco and offered to have her re-scheduled with a physician. She reports she is "going to go somewhere else" other than [facility] and is requesting her records. Ms. Tinoco wal ked to the front desk officer for assistance with obtaining her medical records. - All findings and diagnosis were discussed with patient at time of visit and sh e states they understand and are in agreement with the treatment plan at this ti me documented in this encounter Plan of Treatment Care Team Description Date Type Specialty Jess Tovar MD [address] [place], [place] [address] 03/13/2019 Office [place] [address] [place] [address] 03/19/2019 Office Visit Family Medicine Ginny Oneal MD [address] [place] [phone] 03/24/2019 Office Visit Gastroenterology Ovidio Verma MD [address] [place], [place] [phone] 04/02/2019 Office Visit Orthopedic Surgery Omar Clay DO [address] [place] [address] [phone], Jennifer Adult Infusion Nurse 04/17/2019 Nurse Visit Infusion Therapy Sebastian Doe [address] [place] [address] [id number] [place], [place] [phone] 04/30/2019 Office Visit Pain Medicine Ginny Oneal MD [address] [place] [address]. [place] [address] 06/09/2019 Office Visit Gastroenterology Omar Clay DO [address] [place] [address] [phone] Jennifer Eldridge Adult Infusion Nurse 06/12/2019 Nurse [...] Head, Donal Uhr Bipolar BIPOLAR Right: Hip Mitchell [id number] #[id number] - S0 head Implanted: Qty: 1 on 09/18/2017 by Sebastian Bunn MD at [facility] 07/07/2021 1023-12 / [id number] / [id number] Cancellous Cubes, Community Tissue BONE Right: Hip Community Services Freeze Dried 30 Cc Tissue #1023-12 - [id number] Services Implanted: Qty: 1 on 09/18/2017 by Sebastian Bunn MD at [facility] 03/08/20182017- / [id number] / [id number] Dbm Putty Maxxeus 10cc Cts #[id number] BONE Right: Hip [facility] - [id number] Tissue Implanted: Qty: 1 on 09/18/2017 by Services Sebastian Bunn MD at [facility] 04/07/2022 1365-28-720 / 0 / [id number] Delta Ceramic Femoral Head 28mm +5 Head Right: Hip Depuy 06/21 Taper Depuy Ref#[id number] Synthes Implanted: Qty: 1 on 09/18/2017 by Sebastian Bunn MD at [facility] 03/29/2022 623-00-44F / 0 / [id number] Insert, Mitchell Trident 0deg 44mm Liner Right: Hip Donal #[id number] Implanted: Qty: 1 on 09/18/2017 by Sebastian Bunn MD at [facility] 04/24/2022 5260-5-050 / 0 / [id number] Screw Osteolock 3.[address] SCREW Right: Hip Mitchell Cancellous 50mm Mitchell Ref#[id number] Implanted: Qty: 2 on 09/18/2017 by Sebastian Bunn MD at [facility] 06/01/2022 5260-5-020 / 0 / [id number] Screw Ostelock 3.[address] SCREW Right: Hip Mitchell Cancellous 20mm Donal Ref#[id number] Implanted: Qty: 1 on 09/18/2017 by Sebastian Bunn MD at [facility] 06/01/2022 5260-5-016 / 0 / [id number] Screw Osteolock 3.[address] SCREW Right: Hip Mitchell Cancellous 18mm Mitchell Ref#[id number] Implanted: Qty: 1 on 09/18/2017 by Sebastian Bunn MD at [facility] 01/02/2022 [id number] / 0 / [id number] Shell, Mitchell Tritanium Revision Shell Right: Hip Donal Acetabular #[id number] - [id number] Implanted: Qty: 1 on 09/18/2017 by Sebastian Bunn MD at [facility] documented as of this encounter Results Not on filedocumented in this encounter Visit Diagnoses Diagnosis Bilateral carpal tunnel syndrome - Prim anatoliy Carpal tunnel syndrome documented in this encounter Insurance Type Payer Benefit Subscriber ID Effective Phone Address Plan / Dates Group Medicare Adv HMO [facility] [id number] 2018- MANAGED MEDICARE HEALTHCARE Present DUAL COMPLETE O Medicaid [facility] MEDICAID xxxxxxxxx 2019-P [phone] P O [facility] [id number] [place] [address] ([place]) [place] [address] documented as of this encounter Advance Directives Patient 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
--- OUTSIDE RECORDS SUMMARY | 2019-12-13 15:28 | XMS REPORT | Summary of Care ---
Author Author [facility] - Health Organization [facility] - Health Address Unknown Phone Unavailable Care Team Providers Care Machine Guide Base Winder Name Role Phone Ovidio Clarke MD PCP Reason for Visit * Reason Comments Hand Pain bi * (Routine) Referred By Contact Referred To Contact Status Reason Specialty Diagnoses / Procedures Jess Tovar MD [address] [place] [address] Closed Orthopedic Diagnoses Surgery Cervicalgia Bilateral carpal tunnel syndrome P rocedures CONSULT/REFERRAL ORTHOPAEDIC SURGERY Encounter Details Care Team Description Date Type Department Daniela Velarde, CLINIC DIRECTOR [address] [facility] [address] [place] [address] Bilateral carpal tunnel syndrome (Primar y Dx) 03/12/[address] [facility] edic Surgery- [address], [address] [place] [address] Allergies Comments Active Allergy Reactions [...] Overview: Added automatically from request for marquez [employer] [id number] Cervical spondylosis with radiculopathy 01/01/2019 Overview: Added automatically from request for marquez [employer] 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 [id number] Nausea and vomiting, intractability of vomiting not s pecified, unspecified 05/24/2017 vomiting type Overview: Added automatically from request for [employer] [id number] ANJELICA (obstructive sleep apnea) 05/10/2017 Obesity (BMI 30-39.9) 05/01/2017 Microhematuria 02/14/2017 Complex tear of medial meniscus of right knee as curr ent injury, initial 01/18/2017 encounter Overview: Added automatically from request for jimmy solorio [id number] Elevated MCV 07/25/2016 Overview: 103.4 07/22/2016 Muscle [...] lobe nodular opacitiy on chest xray at [facility] 05/22/2015 Hiatus hernia syndrome 04/09/2015 Overview: [...] lower leg 11/25/2013 Overview: ICD10 Diagnosis Term Food And Beverage Controller Utility Knee crepitus 11/25/2013 Genu valgum, acquired 11/25/2013 Overview: ICD10 Diagnosis Term Food And Beverage Controller Utility Patellofemoral misalignment with pain 11/25/2013 Primary [...] 11/16/2010 Headache 04/08/2010 Overview: ICD10 Diagnosis Term Food And Beverage Controller Utility Nonerosive nonspecific gastritis 04/08/2010 Overview: EGD Dr. Lloyd Glossitis 02/23/2010 Tobacco use disorder 02/23/2010 Menorrhagia 05/19/2009 Vision blurred 05/19/2009 Acute upper respiratory infection 08/14/2008 Overview: ICD10 Diagnosis Term Food And Beverage Controller Utility Acute pharyngitis 08/14/2008 Screening for malignant neoplasm of cervix Overview: ICD10 Diagnosis Term Food And Beverage Controller Utility Breast screening 07/16/2008 Overview: ICD10 Diagnosis Term Food And Beverage Controller Utility Urinary tract infection, site not specified 04/29/20 08 Backache 06/02/2007 Overview: Lower back pain ICD10 Diagnosis Term Food And Beverage Controller Utility Pain in joint 06/02/2007 Overview: ICD10 Diagnosis Term Food And Beverage Controller Utility Cervicalgia 06/02/2007 Myalgia and myositis 06/02/2007 Overview: Bilateral trapezius pain ICD10 Diagnosis Term Food And Beverage Controller Utility Absence of menstruation 04/25/2007 Anemia 03/25/2007 Overview: ICD10 Diagnosis Term Food And Beverage Controller Utility Helicobacter pylori infection 06/11/2006 Overview: ICD10 Diagnosis Term Food And Beverage Controller Utility Acute peptic ulcer 06/11/2006 Overview: ICD10 Diagnosis Term Food And Beverage Controller Utility Abdominal pain 04/25/2006 Overview: ICD10 Diagnosis Term Food And Beverage Controller Utility Ankylosing spondylitis 04/25/2006 Vaginitis and vulvovaginitis 04/25/2006 Overview: ICD10 Diagnosis Term Food And Beverage Controller Utility Other, mixed, or unspecified nondependent drug [...] eatures 11/30/2005 02/11/2018 Overview: ICD10 Diagnosis Term Food And Beverage Controller Utility documented as of this encounter (statuses [...] 02/11/2012 Hiatus hernia syndrome 04/09/2015 EGD 03/23/2015 [facility] Immunization deficiency 10/09/2014 She is [...] Right 01/06/2014 Surgeon: Girish Fountain MD; Location: [facility] OR LOCATION ARTHROSCOPIC MENISCAL REPAIR Right 01/06/2014 Surgeon: Girish Fountain MD; Location: [facility] OR LOCATION CERVICAL EPIDURAL STEROID INJECTION 03/26/2012 Surgeon: Maged Franklin MD PHD; Location: [facility] OR LOCATION CERVICAL EPIDURAL STEROID INJECTION N/A 01/23/2019 Surgeon: Sebastian Doe; Location: [place] OR Location COLONOSCOPY N/A 06/22/2015 Surgeon: Arian To MD; Location: [facility] OR LOCATION COLONOSCOPY N/A 02/17/2019 Surgeon: Ricco Hannah DO; Location: [place] OR Location EGD (ENDO) 03/23/2015 [facility] [place] ESOPHAGOGASTRODUODENOSCOPY 04/13 ulcers ESOPHAGOGASTRODUODENOSCOPY 06/15 ESOPHAGOGASTRODUODENOSCOPY 10/07/2009 mild nonerosive gastritis ESOPHAGOGASTRODUODENOSCOPY N/A 06/22/2015 Surgeon: Arian To MD; Location: [facility] ESOPHAGOGASTRODUODENOSCOPY N/A 02/17/2019 Surgeon: Ricco Hannah DO; Location: [place] OR Location FLEXIBLE BRONCHOSCOPY 05/24/2015 Magui Hogan HIP HEMIARTHROPLASTY 2001 Right KNEE ARTHROSCOPY Right 01/06/2014 Surgeon: Girish Fountain MD; Location: [facility] OR LOCATION NC ARTHRS KNE SURG W/MENISCECTOMY MED/LAT W/SHVG 01/06/2014 NC KNEE SCOPE,REMV LOOSE BODY 01/06/2014 TOTAL HIP [...] file Gets together: Not on file Attends pentecostal service: Not on file Active member of [...] is 32.62 kg/m. No results found for: [id number] No components found for: A1C Constitutional: No [...] "going to go somewhere else" other than [facility] and is requesting her records. Ms. Tinoco wal ked to the front office help for assistance with obtaining her medical records. - All findings and diagnosis were discussed with patient at time of visit and sh e states they understand and are in agreement with the treatment plan at this ti me documented in this encounter Plan of Treatment Care Team Description Date Type Specialty Jess Tovar MD [address] [place], [place] [address] 03/13/2019 Office [place] [address] [place] [address] 03/19/2019 Office Visit Family Medicine Ginny Oneal MD [address] [place] [phone] 03/24/2019 Office Visit Gastroenterology Ovidio Verma MD [address] [place], [place] [phone] 04/02/2019 Office Visit Orthopedic Surgery Omar Clay DO [address] [place] [address] [phone] 3, Jennifer Adult Infusion Nurse 04/17/2019 Nurse Visit Infusion Therapy Sebastian Doe [address] [place] [address] [id number] [place], [place] [phone] 04/30/2019 Office Visit Pain Medicine Ginny Oneal MD [address] [place] [address]. [place] [address] 06/09/2019 Office Visit Gastroenterology Omar Clay DO [address] [place] [address] [phone] Jennifer Eldridge Adult Infusion Nurse 06/12/2019 Nurse [...] Head, Donal Uhr Bipolar BIPOLAR Right: Hip Evans 29d98yc #Uh1-44-28 - S0 head Implanted: Qty: 1 on 09/18/2017 by Sebastian Bunn MD at [facility] 07/07/2021 1023-12 / [id number] / [id number] Cancellous Cubes, Community Tissue BONE Right: Hip Community Services Freeze Dried 30 Cc Tissue #1023-12 - [id number] Services Implanted: Qty: 1 on 09/18/2017 by Sebastian Bunn MD at [facility] 03/08/20182017- / [id number] / [id number] Dbm Putty Maxxeus 10cc Cts #2018-40 BONE Right: Hip [facility] - [id number] Tissue Implanted: Qty: 1 on 09/18/2017 by Services Sebastian Bunn MD at [facility] 04/07/2022 1365-28-720 / 0 / [id number] Delta Ceramic Femoral Head 28mm +5 Head Right: Hip Depuy 06/21 Taper Depuy Ref#[id number] Synthes Implanted: Qty: 1 on 09/18/2017 by Sebastian Bunn MD at [facility] 03/29/2022 623-00-44F / 0 / [id number] Insert, Evans Trident 0deg 44mm Liner Right: Hip Donal #623-00-44f Implanted: Qty: 1 on 09/18/2017 by Sebastian Bunn MD at [facility] 04/24/2022 5260-5-050 / 0 / [id number] Screw Osteolock [address] SCREW Right: Hip Evans Cancellous 50mm Evans Ref#[id number] Implanted: Qty: 2 on 09/18/2017 by Sebastian uBnn MD at [facility] 06/01/2022 5260-5-020 / 0 / [id number] Screw Ostelock 3.[address] SCREW Right: Hip Evans Cancellous 20mm Donal Ref#[id number] Implanted: Qty: 1 on 09/18/2017 by Sebastian Bunn MD at [facility] 06/01/2022 5260-5-016 / 0 / [id number] Screw Osteolock 3.[address] SCREW Right: Hip Evans Cancellous 18mm Evans Ref#[id number] Implanted: Qty: 1 on 09/18/2017 by Sebastian Bunn MD at [facility] 01/02/2022 509-02-60F / 0 / [id number] Shell, Evans Tritanium Revision Shell Right: Hip Donal Acetabular #[id number] - S0 Implanted: Qty: 1 on 09/18/2017 by Sebastian Bunn MD at [facility] documented as of this encounter Results Not on filedocumented in this encounter Visit Diagnoses Diagnosis Bilateral carpal tunnel syndrome - Prim anatoliy Carpal tunnel syndrome documented in this encounter Insurance Type Payer Benefit Subscriber ID Effective Phone Address Plan / Dates Group Medicare Adv HMO [facility] [id number] 2018- MANAGED MEDICARE HEALTHCARE Present DUAL COMPLETE O Medicaid [facility] MEDICAID xxxxxxxxx 2019-P [phone] P O [facility] [address] [place] [address] ([place]) [place] [address] documented as of this encounter Advance Directives 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
--- OUTSIDE RECORDS SUMMARY | 2019-12-13 15:28 | XMS REPORT | Summary of Care ---
Author Author [facility] - Health Organization [facility] - Health Address Unknown Phone Unavailable Care Team Providers Care Serging Machine Operator Name Role Phone Ovidio Clarke MD PCP Reason for Visit * Reason Comments Refill Request Encounter Details Care Team Description Date [place] [address] [place] [address] Refill Request 03/09/2019 [facility]ill [facility] [address] [address] [place] [phone] Allergies Comments Active Allergy Reactions Severity Noted Date Aspirin Hives 03/21/2012 Sulfa (Sulfonamide Hives 11/29/2005 Antibiotics) documented as of this encounter (statuses as of 03/11/2019) Medications End Date Status Medication Sig Dispensed [...] Patellofemoral instability of right knee with pain 03/11/2019 Discontinued VOLTAREN 1 % APPLY 100 g 0 gelIndications: Painful EXTERNALLY TO 9 patella, unspecified THE AFFECTED laterality, Primary AREA FOUR localized osteoarthrosis, TIMES DAILY lower leg, unspecified NEEDED FOR laterality, Muscle PAIN( SCALE weakness of lower 4-6) extremity, Effusion of lower leg joint, Knee crepitus, unspecified laterality, Patellofemoral instability of right knee with pain 03/11/2019 Discontinued ibuprofen (ADVIL) 200 mg Take 200 mg 0 tablet by mouth every 6 (six) hours as needed. 03/09/2019 Discontinued Diclofenac Sodium APPLY TO THE 100 [...] as of this encounter (statuses as of 03/11/2019) Active Problems Problem Noted Date Special screening for malignant neoplasms, colon Overview: Added automatically from request for jimmy solorio [id number] Cervical spondylosis with radiculopathy 01/01/2019 Overview: Added automatically from request for jimmy solorio [id number] Mixed hyperlipidemia 08/13/2018 Overview: LDL 140 07/17/2018 Left tennis elbow 06/17/2018 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 Overview: R Avulsion fracture of lateral epicondyle of humerus 0 11/14/2017 Painful patella, unspecified laterality 11/05/2017 S/P revision of total hip 09/18/2017 Colon cancer screening 05/24/2017 Overview: Added automatically from request for jimmy solorio [id number] Hematemesis with nausea 05/24/2017 Overview: Added automatically from request for jimmy solorio [id number] Nausea and vomiting, intractability of vomiting not s pecified, unspecified 05/24/2017 vomiting type Overview: Added automatically from request for jimmy solorio [id number] ANJELICA (obstructive sleep apnea) 05/10/2017 Obesity (BMI 30-39.9) 05/01/2017 Microhematuria 02/14/2017 Complex tear of medial meniscus of right knee as curr ent injury, initial 01/18/2017 encounter Overview: Added automatically from request for jimmy solorio [id number] Elevated MCV 07/25/2016 Overview: 103.4 07/22/2016 Muscle [...] 04/09/2015 Overview: EGD 03/23/2015 [facility] screening mammogram 01/06/2015 Immunization deficiency 10/09/2014 Overview: [...] lower leg 11/25/2013 Overview: ICD10 Diagnosis Term Blow Mold Technician Utility Knee crepitus 11/25/2013 Genu valgum, acquired 11/25/2013 Overview: ICD10 Diagnosis Term Blow Mold Technician Utility Patellofemoral misalignment with pain 11/25/2013 [...] 11/16/2010 Headache 04/08/2010 Overview: ICD10 Diagnosis Term Blow Mold Technician Utility Nonerosive nonspecific gastritis 04/08/2010 Overview: EGD Dr. Lloyd Glossitis 02/23/2010 Tobacco use disorder 02/23/2010 Menorrhagia 05/19/2009 Vision blurred 05/19/2009 Acute upper respiratory infection 08/14/2008 Overview: ICD10 Diagnosis Term Blow Mold Technician Utility Acute pharyngitis 08/14/2008 Screening for malignant neoplasm of cervix 9 Overview: ICD10 Diagnosis Term Blow Mold Technician Utility Breast screening 07/16/2008 Overview: ICD10 Diagnosis Term Blow Mold Technician Utility Urinary tract infection, site not specified 04/29/20 08 Backache 06/02/2007 Overview: Lower back pain ICD10 Diagnosis Term Blow Mold Technician Utility Pain in joint 06/02/2007 Overview: ICD10 Diagnosis Term Blow Mold Technician Utility Cervicalgia 06/02/2007 Myalgia and myositis 06/02/2007 Overview: Bilateral trapezius pain ICD10 Diagnosis Term Blow Mold Technician Utility Absence of menstruation 04/25/2007 Anemia 03/25/2007 Overview: ICD10 Diagnosis Term Blow Mold Technician Utility Helicobacter pylori infection 06/11/2006 Overview: ICD10 Diagnosis Term Blow Mold Technician Utility Acute peptic ulcer 06/11/2006 Overview: ICD10 Diagnosis Term Blow Mold Technician Utility Abdominal pain 04/25/2006 Overview: ICD10 Diagnosis Term Blow Mold Technician Utility Ankylosing spondylitis 04/25/2006 Vaginitis and vulvovaginitis 04/25/2006 Overview: ICD10 Diagnosis Term Blow Mold Technician Utility Other, mixed, or unspecified nondependent drug abuse, continuous 11/30/2005 documented as of this encounter (statuses as of 03/11/2019) Resolved Problems Problem Noted Date Resolved Date Arm laceration, right, subsequent encounter 04/13/2014 04/13/2014 Syncope and collapse 02/27/2007 06/28/2014 Bipolar I disorder, most recent episode (or current) unspec ified 01/03/2007 01/23/2018 Overview: Dr. 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 11/30/2005 02/11/2018 Overview: ICD10 Diagnosis Term Blow Mold Technician Utility documented as of this encounter (statuses as of 03/11/2019) Immunizations Name Administration Dates Next Due Influenza [...] Treatment Care Team Description Date Type Specialty Daniela Velarde, DECONTAMINATION WORKER [address] [facility] [address] [place] [address] [phone] 03/12/2019 Office Visit Orthopedic Surgery Jess Tovar MD [address] [place], [place] [address] 03/13/2019 Office [place] [address] [place] [address] 03/19/2019 Office Visit Family Medicine Ginny Oneal MD [address] [place] [phone] 03/24/2019 Office Visit Gastroenterology Omar Clay, DO [address] [place] [address] [phone] 3, Jennifer Adult Infusion Nurse 04/17/2019 Nurse Visit Infusion Therapy Sebastian Doe [address] [place] [address] [id number] [place], [place] [address] 04/30/2019 Office Visit Pain Medicine Ginny Oneal MD [address] [place] [phone] 06/09/2019 Office Visit Gastroenterology Omar Clay DO [address] [place] [address] [phone] 3, Jennifer Adult Infusion Nurse 06/12/2019 Nurse [...] UH1-44-28 / 0 / [id number] Bipolar Head, Alanson Uhr Bipolar BIPOLAR Right: Hip Alanson 53v93ax #Uh1-44-28 - S0 head Implanted: Qty: 1 on 09/18/2017 by Sebastian Bunn MD at [facility] 07/07/2021 1023-12 / [id number] / [id number] Cancellous Cubes, Community Tissue BONE Right: Hip [facility] Services Freeze Dried 30 Cc Tissue #1023-12 - [id number] Services Implanted: Qty: 1 on 09/18/2017 by Sebastian Bunn MD at [facility] 03/08/20182017-40 / [id number] / [id number] Dbm Putty Maxxeus 10cc Cts #2018-40 BONE Right: Hip [facility] - [id number] Tissue Implanted: Qty: 1 on 09/18/2017 by Services Sebastian Bunn MD at [facility] 04/07/2022 1365-28-720 / 0 / [id number] Delta Ceramic Femoral Head 28mm +5 Head Right: Hip Depuy 06/21 Taper Depuy Ref#[id number] Synthes Implanted: Qty: 1 on 09/18/2017 by Sebastian Bunn MD at [facility] 03/29/2022 623-00-44F / 0 / [id number] Insert, Donal Trident 0deg 44mm Liner Right: Hip Alanson #623-00-44f Implanted: Qty: 1 on 09/18/2017 by Sebastian Bunn MD at [facility] 04/24/2022 5260-5-050 / 0 / [id number] Screw Osteolock 3.[address] SCREW Right: Hip Alanson Cancellous 50mm Donal Ref#[id number] Implanted: Qty: 2 on 09/18/2017 by Sebastian Bunn MD at [facility] 06/01/2022 5260-5-020 / 0 / [id number] Screw Ostelock 3.[address] SCREW Right: Hip Donal Cancellous 20mm Donal Ref#5260-5-020 Implanted: Qty: 1 on 09/18/2017 by Sebastian Bunn MD at [facility] 06/01/2022 5260-5-016 / 0 / [id number] Screw Osteolock 3.[address] SCREW Right: Hip Alanson Cancellous 18mm Alanson Ref#5260-5-016 Implanted: Qty: 1 on 09/18/2017 by Sebastian Bunn MD at [facility] 01/02/2022 509-02-60F / 0 / [id number] Shell, Alanson Tritanium Revision Shell Right: Hip Donal Acetabular #509-02-60f - S0 Implanted: Qty: 1 on 09/18/2017 by Sebastian Bunn MD at [facility] documented as of this encounter Results Not on filedocumented in this encounter Visit Diagnoses Diagnosis Painful patella, unspecified laterality Primary localized osteoarthrosis, lower leg, unspecified laterality Muscle weakness of lower extremity Muscle weakness (generalized) Effusion of lower leg joint Knee crepitus, unspecified laterality Patellofemoral instability of right kne e with pain documented in this encounter Insurance Type Payer Benefit Subscriber ID Effective Phone Address Plan / Dates Group Medicare Adv HMO [facility] [id number] 2018- MANAGED MEDICARE HEALTHCARE Present DUAL COMPLETE HMO [facility] [id number] 2018- P O BOX SOLUTIONS Present [address] [place] [address] Medicaid [facility] MEDICAID xxxxxxxxx 2019-P [phone] [address] [place] 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
--- OUTSIDE RECORDS SUMMARY | 2019-12-13 15:28 | XMS REPORT | Summary of Care ---
Author Author [facility] [[email or web address]] - Health Organization [facility] [[email or web address]] - Health Address Unknown Phone Unavailable Care Team Providers Care Transfer Worker Name Role Phone Ovidoi Clarke MD PCP Encounter Details Care Team Description Date Type Department Doctor Unassigned, [place] [address] [place] [address] 03/12/2019 Orders Only [facility] [[email or web address]] [address] [place] [address] Allergies Comments Active Allergy Reactions Severity Noted Date Aspirin Hives 03/21/2012 Sulfa (Sulfonamide Hives 11/29/2005 Antibiotics) documented as of this encounter (statuses as of 03/19/2019) Medications End Date Status Medication Sig Dispensed Refills Start Date Active azithromycin 250 mg Take 250 mg [...] Acute into vagina vaginitis at bedtime. Active gabapentin 600 mg Take 1 tablet [...] as of this encounter (statuses as of 03/19/2019) Active Problems Problem Noted Date Essential hypertension 03/19/2019 Carpal tunnel syndrome on right 03/19/2019 Overview: EMG 02/18/2019 Special screening for malignant neoplasms, colon Overview: Added automatically from request for jimmy solorio [id number] Cervical spondylosis with radiculopathy 01/01/2019 Overview: Added automatically from request for jimmy solorio [id number] Mixed hyperlipidemia 08/13/2018 Overview: LDL 140 07/17/2018 Left tennis elbow 06/17/2018 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 Overview: R Avulsion fracture of lateral epicondyle of humerus 0 11/14/2017 Painful patella, unspecified laterality 11/05/2017 S/P revision of total hip 09/18/2017 Colon cancer screening 05/24/2017 Overview: Added automatically from request for jimmy solorio [id number] Hematemesis with nausea 05/24/2017 Overview: Added automatically from request for jimmy solorio [id number] Nausea and vomiting, intractability of vomiting not s pecified, unspecified 05/24/2017 vomiting type Overview: Added automatically from request for jimmy solorio [id number] ANJELICA (obstructive sleep apnea) 05/10/2017 Obesity (BMI 30-39.9) 05/01/2017 Microhematuria 02/14/2017 Complex tear of medial meniscus of right knee as curr ent injury, initial 01/18/2017 encounter Overview: Added automatically from request for jimmy solorio [id number] Elevated MCV 07/25/2016 Overview: 103.4 07/22/2016 Muscle [...] lobe nodular opacitiy on chest xray at [facility] 05/22/2015 Hiatus hernia syndrome 04/09/2015 Overview: EGD 03/23/2015 [facility] [place] mamm[place] 01/06/2015 Immunization deficiency [...] lower leg 11/25/2013 Overview: ICD10 Diagnosis Term [employer] Knee crepitus 11/25/2013 Genu valgum, acquired 11/25/2013 Overview: ICD10 Diagnosis Term [employer] Patellofemoral misalignment with pain 11/25/2013 Primary [...] 11/16/2010 Headache 04/08/2010 Overview: ICD10 Diagnosis Term [employer] Nonerosive nonspecific gastritis 04/08/2010 Overview: EGD Dr. Lloyd Glossitis 02/23/2010 Tobacco use disorder 02/23/2010 Menorrhagia 05/19/2009 Vision blurred 05/19/2009 Acute upper respiratory infection 08/14/2008 Overview: ICD10 Diagnosis Term [employer] Acute pharyngitis 08/14/2008 Screening for malignant neoplasm of cervix 9 Overview: ICD10 Diagnosis Term [employer] Breast screening 07/16/2008 Overview: ICD10 Diagnosis Term [employer] Urinary tract infection, site not specified 04/29/20 08 Backache 06/02/2007 Overview: Lower back pain ICD10 Diagnosis Term [employer] Pain in joint 06/02/2007 Overview: ICD10 Diagnosis Term [employer] Cervicalgia 06/02/2007 Myalgia and myositis 06/02/2007 Overview: Bilateral trapezius pain ICD10 Diagnosis Term [employer] Absence of menstruation 04/25/2007 Anemia 03/25/2007 Overview: ICD10 Diagnosis Term [employer] Helicobacter pylori infection 06/11/2006 Overview: ICD10 Diagnosis Term [employer] Acute peptic ulcer 06/11/2006 Overview: ICD10 Diagnosis Term [employer] Abdominal pain 04/25/2006 Overview: ICD10 Diagnosis Term [employer] Ankylosing spondylitis 04/25/2006 Vaginitis and vulvovaginitis 04/25/2006 Overview: ICD10 Diagnosis Term [employer] Other, mixed, or unspecified nondependent drug abuse, continuous 11/30/2005 documented as of this encounter (statuses as of 03/19/2019) Resolved Problems Problem Noted Date Resolved Date Arm laceration, right, subsequent encounter 04/13/2014 04/13/2014 Syncope and collapse 02/27/2007 06/28/2014 Bipolar I disorder, most recent episode (or current) unspec ified 01/03/2007 01/23/2018 Overview: Dr. 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 11/30/2005 02/11/2018 Overview: ICD10 Diagnosis Term [employer] documented as of this encounter (statuses as of 03/19/2019) Immunizations Name Administration Dates Next Due Influenza [...] Description Date Type Specialty Ginny Oneal MD [address] [place] [address] [phone] 03/24/2019 Office Visit Gastroenterology Ovidio Verma MD [address] [place], [place] [id number] 04/02/2019 Office Visit Orthopedic Surgery Omar Clay, DO [address] [place] [address] [phone] 3, Jennifer Adult Infusion Nurse 04/17/2019 Nurse Visit Infusion Therapy Sebastian Doe [address] [place] [address] [id number] [place], [place] [address] 04/30/2019 Office Visit Pain Medicine Ginny Oneal MD [address] [place] [address] [phone] 06/09/2019 Office Visit Gastroenterology Omar Clay, DO [address] [place], [place] [phone] 3, Jennifer Adult Infusion Nurse 06/12/2019 Nurse Visit [place] [address] [place] [phone] 06/19/2019 Office Visit Family Medicine Health Maintenance Due Date Last Done [...] UH1-44-28 / 0 / [id number] Bipolar Head, [place] Uhr Bipolar BIPOLAR Right: Hip [place] [id number] #Uh1-44-28 - S0 head Implanted: Qty: 1 on 09/18/2017 by Sebastian Bunn MD at [facility] 07/07/2021 1023-12 / [id number] / [id number] Cancellous Cubes, Community Tissue BONE Right: Hip [facility] Services Freeze Dried 30 Cc Tissue #1023-12 - [id number] Services Implanted: Qty: 1 on 09/18/2017 by Sebastian Bunn MD at [facility] 03/08/2018 2018-40 / [id number] / [id number] Dbm Putty Maxxeus 10cc Cts #2018-40 BONE Right: Hip [facility] - [id number] Tissue Implanted: Qty: 1 on 09/18/2017 by Services Sebastian Bunn MD at [facility] 04/07/2022 1365-28-720 / 0 / [id number] Delta Ceramic Femoral Head 28mm +5 Head Right: Hip Depuy 06/21 Taper Depuy Ref#[id number] Synthes Implanted: Qty: 1 on 09/18/2017 by Sebastian Bunn MD at [facility] 03/29/2022 [id number] / 0 / [id number] Insert, [place] Trident 0deg 44mm Liner Right: Hip [place] #[id number] Implanted: Qty: 1 on 09/18/2017 by Sebastian Bunn MD at [facility] 04/24/2022 5260-5-050 / 0 / [id number] Screw Osteolock [address] SCREW Right: Hip [place] Cancellous 50mm [place] Ref#[id number] Implanted: Qty: 2 on 09/18/2017 by Sebastian Bunn MD at [facility] 06/01/2022 5260-5-020 / 0 / [id number] Screw Ostelock [address] SCREW Right: Hip Donal Cancellous 20mm [place] Ref#[id number] Implanted: Qty: 1 on 09/18/2017 by Sebastian Bunn MD at [facility] 06/01/2022 5260-5-016 / 0 / [id number] Screw Osteolock 3.[address] SCREW Right: Hip [place] Cancellous 18mm [place] Ref#[id number] Implanted: Qty: 1 on 09/18/2017 by Sebastian Bunn MD at [facility] 01/02/2022 [id number] / 0 / [id number] Shell, [place] Tritanium Revision Shell Right: Hip [place] Acetabular #[id number] - S0 Implanted: Qty: 1 on 09/18/2017 by Sebastian Bunn MD at [facility] documented as of this encounter Procedures Comments Procedure Name Priority Date/Time Associated Diag nosis PATIENT QUESTIONNAIRE Routine 03/12/2019 12:01 AM CDT documented in this encounter Results Not on filedocumented in this encounter Insurance Type Payer Benefit Subscriber ID Effective Phone Address Plan / Dates Group Medicare Adv O [facility] [id number] 2018- MANAGED MEDICARE HEALTHCARE Present DUAL COMPLETE HMO [facility] [id number] 2018- [address] [employer] Present [address] [place] [address] Medicaid [facility] MEDICAID xxxxxxxxx 2019-P [phone] P O [facility] resent [id number] [place] [address] documented as of this encounter Advance Directives Patient Sparmaker Explanation Type Date Recorded 0 Advance Directives 08/08/2013 8:00 AM and Living Will Power of Used Building Materials Yard Worker 08/08/2013 8:00 AM
--- OUTSIDE RECORDS SUMMARY | 2019-12-13 15:28 | XMS REPORT | Summary of Care ---
Author Author [facility] Organization [facility] Address Unknown Phone Unavailable Care Team Providers Care Primary Special Education Teacher Name Role Phone Ovidio Clarke MD PCP Reason for Visit * Reason Comments Neck Pain Back Pain Encounter Details Care Team Description Date [place] [address] [place] [address] Ankylosing spondylitis, unspecified site of spine (Primary Dx); Cervicalgia; Myofascial pain; Gastroesophageal reflux disease without esophagitis; Nonerosive nonspecific gastritis; Painful patella, unspecified laterality; Primary localized osteoarthrosis, lower leg, unspecified laterality; Muscle weakness of lower extremity; Effusion of lower leg joint; Knee crepitus, unspecified laterality; Patellofemoral instability of right knee with pain; Tobacco use disorder; Vaginitis and vulvovaginitis; Essential hypertension 03/19/2019 Office Visit [facility] [place] [address] [place] [phone] Allergies Comments Active Allergy Reactions Severity Noted [...] Active VENTOLIN HFA 90 INHALE 2 5 09/10/201 mcg/actuation inhaler PUFFS Q 4 H 8 [...] sites in spine MOUTH ONCE WEEKLY Active esomeprazole (NEXIUM) 40 Take 1 180 capsule 3 0 mg capsuleIndications: capsule by 9 Gastroesophageal reflux mouth 2 (two) disease without times daily. esophagitis, Nonerosive TAKE ONE nonspecific gastritis CAPSULE BY MOUTH EVERY MORNING WITH BREAKFAST Active cyclobenzaprine 5 mg TAKE 1 TABLET 30 tablet 5 tabletIndications: BY MOUTH 9 Ankylosing spondylitis, THREE TIMES unspecified site of spine DAILY Active Diclofenac Sodium 1 % APPLY 100 g 0 03/09 gelIndications: Painful EXTERNALLY TO 9 patella, unspecified THE AFFECTED laterality, Primary AREA FOUR localized osteoarthrosis, TIMES DAILY lower leg, unspecified NEEDED FOR laterality, Muscle PAIN weakness of lower extremity, Effusion of lower leg joint, Knee crepitus, unspecified laterality, Patellofemoral instability of right knee with pain Active hydroCHLOROthiazide 25 mg Take 1 tablet 30 tablet 11 tabletIndications: by mouth 9 Essential hypertension daily. Active Miconazole-Skin Clnsr17 Use as 1 Kit 5 (MONISTAT 7 CREAM, APPL, directed 9 WIPES) 2 % (100 mg)- 2 % KitIndications: Vaginitis and vulvovaginitis Active HYDROcodone-acetaminophen Take 1 tablet 120 tablet 0 10-325 mg by mouth 9 tabletIndications: every 6 (six) Ankylosing spondylitis, hours as unspecified site of needed for spine, Painful patella, Pain (scale unspecified laterality, 4-6). Primary localized osteoarthrosis, lower leg, unspecified laterality 03/19/2019 Discontinued hydroCHLOROthiazide 12.5 Take 1 30 capsule 11 0 mg capsuleIndications: capsule by 8 Ankylosing spondylitis, mouth daily. unspecified site of spine 03/19/2019 Discontinued cyclobenzaprine 5 mg TAKE 1 TABLET 30 tablet 5 tabletIndications: BY MOUTH 9 Ankylosing spondylitis, THREE TIMES unspecified site of spine DAILY 03/19/2019 Discontinued esomeprazole (NEXIUM) 40 TAKE ONE 90 capsule 3 0 mg capsuleIndications: CAPSULE BY 9 Gastroesophageal reflux MOUTH EVERY disease without MORNING WITH esophagitis, Nonerosive BREAKFAST nonspecific gastritis 03/19/2019 Discontinued HYDROcodone-acetaminophen Take 1 tablet 120 tablet 0 10-325 mg by mouth 9 tabletIndications: every 6 (six) Ankylosing spondylitis, hours as unspecified site of needed for spine, Painful patella, Pain (scale unspecified laterality, 4-6). Primary localized osteoarthrosis, lower leg, unspecified laterality 03/19/2019 Discontinued Diclofenac Sodium 1 % APPLY 100 g 0 gelIndications: Painful EXTERNALLY TO 9 patella, unspecified THE AFFECTED laterality, Primary AREA FOUR localized osteoarthrosis, TIMES DAILY lower leg, unspecified NEEDED FOR laterality, Muscle PAIN weakness of lower extremity, Effusion of lower leg joint, Knee crepitus, unspecified laterality, Patellofemoral instability of right knee with pain 03/19/2019 Discontinued HYDROcodone-acetaminophen Take 1 tablet 120 tablet 0 10-325 mg by mouth 9 tabletIndications: every 6 (six) Ankylosing spondylitis, hours as unspecified site of needed for spine, Painful patella, Pain (scale unspecified laterality, 4-6). Primary localized osteoarthrosis, lower leg, unspecified laterality 03/19/2019 Discontinued HYDROcodone-acetaminophen Take 1 tablet 120 tablet 0 10-325 mg by mouth 9 tabletIndications: every 6 (six) Ankylosing spondylitis, hours as unspecified site of needed for spine, Painful patella, Pain (scale unspecified laterality, 4-6). 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 Overview: R Avulsion fracture of lateral epicondyle of humerus 0 11/14/2017 Painful patella, unspecified laterality 11/05/2017 S/P revision of total hip 09/18/2017 Colon cancer screening 05/24/2017 Overview: Added automatically from request for marquez devaughnmandy [id number] Hematemesis with nausea 05/24/2017 Overview: Added automatically from request for jimmy solorio [id number] Nausea and vomiting, intractability of vomiting not s pecified, unspecified 05/24/2017 vomiting type Overview: Added automatically from request for jimmy solorio [id number] ANJELICA (obstructive sleep apnea) 05/10/2017 Obesity (BMI 30-39.9) 05/01/2017 Microhematuria 02/14/2017 Complex tear of medial meniscus of right knee as curr ent injury, initial 01/18/2017 encounter Overview: Added automatically from request for jimmy solorio [id number] Elevated MCV 07/25/2016 Overview: 103.4 07/22/2016 Muscle [...] lobe nodular opacitiy on chest xray at [facility] 05/22/2015 Hiatus hernia syndrome 04/09/2015 Overview: [...] lower leg 11/25/2013 Overview: ICD10 Diagnosis Term Arcg[employer] Developer Utility Knee crepitus 11/25/2013 Genu valgum, acquired 11/25/2013 Overview: ICD10 Diagnosis Term Arcg[employer] Developer Utility Patellofemoral misalignment with pain 11/25/2013 [...] 11/16/2010 Headache 04/08/2010 Overview: ICD10 Diagnosis Term Arc[employer] Developer Utility Nonerosive nonspecific gastritis 04/08/2010 Overview: EGD Dr. Lloyd Glossitis 02/23/2010 Tobacco use disorder 02/23/2010 Menorrhagia 05/19/2009 Vision blurred 05/19/2009 Acute upper respiratory infection 08/14/2008 Overview: ICD10 Diagnosis Term Arc[employer] Developer Utility Acute pharyngitis 08/14/2008 Screening for malignant neoplasm of cervix 9 Overview: ICD10 Diagnosis Term Arc[employer] Developer Utility Breast screening 07/16/2008 Overview: ICD10 Diagnosis Term [employer] Developer Utility Urinary tract infection, site not specified 04/29/20 08 Backache 06/02/2007 Overview: Lower back pain ICD10 Diagnosis Term Arcg[employer] Developer Utility Pain in joint 06/02/2007 Overview: ICD10 Diagnosis Term Arc[employer] Developer Utility Cervicalgia 06/02/2007 Myalgia and myositis 06/02/2007 Overview: Bilateral trapezius pain ICD10 Diagnosis Term [employer] Developer [employer] Absence of menstruation 04/25/2007 Anemia 03/25/2007 Overview: ICD10 Diagnosis Term [employer] Developer Utility Helicobacter pylori infection 06/11/2006 Overview: ICD10 Diagnosis Term Arc[employer] Developer Utility Acute peptic ulcer 06/11/2006 Overview: ICD10 Diagnosis Term Arc[employer] Developer Utility Abdominal pain 04/25/2006 Overview: ICD10 Diagnosis Term Arc[employer] Developer Utility Ankylosing spondylitis 04/25/2006 Vaginitis and vulvovaginitis 04/25/2006 Overview: ICD10 Diagnosis Term Arcg[employer] Developer Utility Other, mixed, or unspecified nondependent [...] eatures 11/30/2005 02/11/2018 Overview: ICD10 Diagnosis Term Arcg[employer] Developer Utility documented as of this encounter [...] Signs Reading Time Taken Comments Vital Sign 120/80 03/19/2019 10:49 AM CDT Blood Pressure 89 03/19/2019 10:22 AM CDT Pulse - - Temperature 18 03/19/2019 10:22 AM CDT Respiratory Rate 96% 03/19/2019 10:22 AM CDT Oxygen Saturation - - Inhaled Oxygen Concentration 90.4 kg (199 lb 4.8 oz) 03/19/2019 10:22 AM CDT Weight 162.6 cm (5' 4") 03/19/2019 10:22 AM CDT Height 34.21 03/19/2019 10:22 AM CDT Body Mass Index documented in this encounter Progress Notes * Ovidio Clarke Jr., MD - 03/19/2019 10:10 AM CDT Chief Complaint had concerns including Neck Pain and Back Pain. History of Present Illness Informant(s): Self We had the pleasure of seeing Juan Tinoco who is a 53 year old female who h as a past medical history of Abdominal pain, Abnormal glucose (10/12/2013), Absenc e of menstruation (04/25/2007), Acute peptic ulcer, unspecified site, without me ntion of hemorrhage and perforation, Acute peptic ulcer, unspecified site, witho ut mention of hemorrhage, perforation, or obstruction, Acute pharyngitis (08/14/19 09), Acute upper respiratory infections of unspecified site (08/14/2008), Anemia, unspecified (03/25/2007), Ankylosing spondylitis (diagnosed around 2003), Anterio r uveitis-left eye (11/13/2012), Arm laceration, right, subsequent encounter (04/13), Avulsion fracture of lateral epicondyle of humerus (11/14/2017), B12 defic iency (05/08/2013), Bipolar I disorder, most recent episode (or current) unspeci fied (01/03/2007), Blepharitis of both eyes (10/25/2012), Breast screening, unspec ified (07/16/2008), Bronchitis (05/27/2015), Carpal tunnel syndrome on right (03/19), Cervical radiculopathy (2011), Elevated MCV (07/25/2016), Failed tot al hip arthroplasty (11/20/2017), Glossitis (02/23/2010), H. pylori infection (08/09), Headache(784.0) (04/08/2010), Helicobacter pylori (H. 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), Meniscus tear (01/12/2014), Menorrhagia (2008), Microhematuria (02/14/2017), Mixed hyperlipidemia (08/13/2018), Mycobacterium avium complex (08/20/2015), Mycobacterium avium infection (08/20/2015), Nonerosive nonspecific gastritis (04/08/2010), ANJELICA (obstructive sleep apnea), Other abnorm ality of red blood cells (05/06/2013), Other screening mammogram (01/06/2015), Maida ntar fascial fibromatosis (04/17/2008), RECURR DEPR PSYCH-PSYCHOTIC (11/30/2005), Schizoaffective disorder, bipolar type (08/20/2015), Screening for breast cancer (08/10/2011), Screening for malignant neoplasm of the cervix (07/16/2008), Special screening for osteoporosis (07/16/2008), Syncope and collapse (02/27/2007), Tobacco use disorder (02/23/2010), Urinary tract infection, site not specified (04/29/20 08), Uveitis, anterior (12/20/2012), Vaginitis and vulvovaginitis, unspecified, V aricose veins of legs (11/16/2010), and Vision blurred (05/19/2009). who presents today for the following concerns: Rheumatoid Arthritis and Ankylosing Spondylitis: She does not bring in the bottle in with her. She takes Gabapentin 600 mg TID an d Han[place] 10 mg daily. She also uses Diclofenac Sodium 1 % gel. Her pain is a 4-5/ 10 with medication. She is requesting refills for Hanover. Tobacco Abuse: Pt is a tobacco user and smokes 1/2 pack every day. She is not in terested in quitting today. GERD & Non-Erosive Gastritis: She takes Nexium 40 mg daily. Last EGD was on 08/23/2014. Pt was told to cont with the PPI at the time. Hypertension: She is taking HCTZ 12.5 mg BID. She is requesting to have 25 mg da drake instead. Current Medications Current Outpatient Medications Medication Sig Dispense Refill [...] needed f or Insomnia. 30 tablet 5 gabapentin 600 mg tablet Take 1 tablet [...] for Pain (scale 4-6). 120 tablet 0 foLIC acid 1 mg tablet One daily 90 tablet 3 methotrexate 2.5 mg tablet Take by mouth TAKE 5 TABLETS BY MOUTH ONCE WEEKLY 60 tablet 0 peg-electrolyte soln 236-22.74-6.74 -5.86 gram solution Take as directed bef ore colonoscopy 4000 mL 0 acetaminophen-codeine 300-30 mg tablet Take 1 tablet [...] NAUSEA FOR UP TO 30 DAYS 0 miconazole (MICONAZOLE 7) 2 % vaginal cream Insert 1 Applicator into vagina at bedtime. 45 g 0 azithromycin 250 mg tablet Take 250 mg by mouth. ethambutol 400 mg tablet Take 400 mg by mouth. rifAMPin 300 mg capsule Take 300 mg by mouth. 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 pylori infection 08/20/2015 EGD 06/22/2015 Headache(784.0) 04/08/2010 Helicobacter pylori (H. pylori) Hematuria 02/11/2012 Hiatus hernia syndrome 04/09/2015 EGD 03/23/2015 [facility] [place] deficiency 10/09/2014 She is NOT immune [...] 11/16/2010 Vision blurred 05/19/2009 Past Surgical History: Procedure Laterality Date ABDOMINAL HYSTERECTOMY 11/15/2009 Dr. Ro ARTHROSCOPIC FOREIGN BODY REMOVAL (SHX) Right 01/06/2014 Surgeon: Girish Fountain MD; Location: [facility] OR LOCATION ARTHROSCOPIC MENISCAL REPAIR Right 01/06/2014 Surgeon: Girish Fountain MD; Location: [facility] OR LOCATION CERVICAL EPIDURAL STEROID INJECTION 03/26/2012 Surgeon: Maged Franklin MD PHD; Location: [facility] OR LOCATION CERVICAL EPIDURAL STEROID INJECTION N/A 01/23/2019 Surgeon: Sebastian Doe; Location: [place] OR Location COLONOSCOPY N/A 06/22/2015 Surgeon: Arian To MD; Location: [facility] OR LOCATION COLONOSCOPY N/A 02/17/2019 Surgeon: Ricco Hannah DO; Location: [facility] OR Location EGD (ENDO) 03/23/2015 Rocio carver [place] ESOPHAGOGASTRODUODENOSCOPY 04/13 ulcers ESOPHAGOGASTRODUODENOSCOPY 06/15 ESOPHAGOGASTRODUODENOSCOPY 10/07/2009 mild nonerosive gastritis ESOPHAGOGASTRODUODENOSCOPY N/A 06/22/2015 Surgeon: Arian To MD; Location: [facility] OR LOCATION ESOPHAGOGASTRODUODENOSCOPY N/A 02/17/2019 Surgeon: Ricco Hannah DO; Location: [facility] OR Location FLEXIBLE BRONCHOSCOPY 05/24/2015 Magui Hogan [employer] HIP HEMIARTHROPLASTY 2001 Right KNEE ARTHROSCOPY Right 01/06/2014 Surgeon: Girish Fountain MD; Location: [facility] OR LOCATION NV ARTHRS KNE SURG W/MENISCECTOMY MED/LAT W/SHVG 01/06/2014 NV KNEE SCOPE,REMV LOOSE BODY 01/06/2014 TOTAL HIP ARTHROPLASTY REVISION Right 09/18/2017 Surgeon: Sebastian Bunn MD; Location: [facility] OR Location TUBAL LIGATION 1988 Family History Problem Relation Age of Onset Diabetes Mother Breast Cancer NoFHx Colon Cancer NoFHx Ovarian Cancer NoFHx Uterine Cancer NoFHx Cancer NoFHx Heart NoFHx Social History Socioeconomic History Marital status: Single [...] file Gets together: Not on file Attends taoist service: Not on file Active member of [...] file Social History Narrative Not on file Review of Systems Review of Systems Constitutional: Negative for activity change, appetite change, chills, diaphores is, fatigue, fever and weight loss. HENT: Negative for ear pain, facial swelling, hearing loss, nosebleeds, rhinorrh ea and sneezing. Eyes: Negative for pain, discharge, redness and itching. Respiratory: Negative for cough, choking, chest tightness and shortness of breat h. Breasts: Negative for discharge, mass, pain and unequal size. Cardiovascular: Negative for chest pain, palpitations and leg swelling. Gastrointestinal: Negative for anal bleeding, blood in stool, constipation, diar braxton and nausea. Genitourinary: Negative for dysuria, polyuria, frequency, vaginal bleeding, vagi nal discharge, enuresis, menstrual problem and nocturia. Musculoskeletal: Positive for arthralgias, back pain and myalgias. Skin: Negative for color change, pallor and rash. Neurological: Negative for dizziness, seizures, syncope and headaches. Psychiatric/Behavioral: Negative for confusion and dysphoric mood. Endocrine: Negative for hair loss, polydipsia, polyphagia, polyuria and weight l oss. Vitals Vitals: 03/19/19 1022 03/19/19 1049 BP: 111/70 120/80 BP Location: Left arm Right arm Patient Position: Sitting Sitting BP CUFF SIZE: Adult Large Adult Large Pulse: 89 Resp: 18 SpO2: 96% Weight: 199 lb 4.8 oz (90.4 kg) Height: 5' 4" (1.626 m) Physical Exam Physical Exam Constitutional: She is oriented to person, place, and time. She appears well-dev eloped and well-nourished. HENT: Head: Normocephalic and atraumatic. Nose: Nose normal. Eyes: Pupils are equal, round, and reactive to light. Conjunctivae and EOM are n ormal. Neck: Normal range of motion. Neck supple. Cardiovascular: Normal rate, regular rhythm and normal heart sounds. Pulmonary/Chest: Effort normal and breath sounds normal. Abdominal: Soft. Bowel sounds are normal. Genitourinary: Vagina normal and uterus normal. Musculoskeletal: Normal range of motion. Neurological: She is alert and oriented to person, place, and time. Skin: Skin is warm and dry. Psychiatric: She has a normal mood and affect. Her behavior is normal. Nursing note and vitals reviewed. Assessment/ Plan Tobacco use disorder (primary encounter diagnosis) Plan: Counseled to Quit. Will Monitor Cervicalgia Plan: Will Monitor Myofascial pain Plan: Will Monitor Gastroesophageal reflux disease without esophagitis Plan: esomeprazole (NEXIUM) 40 mg capsule Nonerosive nonspecific gastritis Plan: esomeprazole (NEXIUM) 40 mg capsule Ankylosing spondylitis, unspecified site of spine Plan: cyclobenzaprine 5 mg tablet, HYDROcodone-acetaminophen 10-325 mg tablet Painful patella, unspecified laterality Plan: HYDROcodone-acetaminophen 10-325 mg tablet, Diclofenac Sodium 1 % gel Primary localized osteoarthrosis, lower leg, unspecified laterality Plan: HYDROcodone-acetaminophen 10-325 mg tablet, Diclofenac Sodium 1 % gel Muscle weakness of lower extremity Plan: Diclofenac Sodium 1 % gel Effusion of lower leg joint Plan: Diclofenac Sodium 1 % gel Knee crepitus, unspecified laterality Plan: Diclofenac Sodium 1 % gel Patellofemoral instability of right knee with pain Plan: Diclofenac Sodium 1 % gel Vaginitis and vulvovaginitis Plan: Miconazole-Skin Clnsr17 (MONISTAT 7 CREAM, APPL, WIPES) 2 % (100 mg)- 2 % Kit Essential hypertension Plan: hydroCHLOROthiazide 25 mg tablet I spent 40 minutes total time with the patient on 03/19/2019. Of that time, 10 m inutes was spent on exam (see notes) and 30 minutes was spent counseling and/or counseling the patient regarding risks and benefits of treatment, surgical optio ns, treatment options and prevention. Adult health maintenance and preventive care measures reviewed. All new meds reviewed with disclosure re: use, dosing, common side effects. Pt expressed understanding. AVS reviewed and given to patient at conclusion of visit. Follow Up: Three Months Attestations Scribe Attestation: Nito Bejarano, am scribing for, and in the presence of , Ovidio Clarke Jr, MD who performed the services described here-in. Nito allen, March 19, 2019, 7:37 AM Physician Attestation: IOvidio Jr, MD, personally performed the serv ices described in this documentation , as scribed by, Nito Salazar in my prese nce and it is both accurate and complete. Ovidio Clarke Jr, MD March 19, 2019, 1:14 PM documented in this encounter Plan of Treatment Care Team Description Date Type Specialty Ginny Oneal MD [address] [place] [id number] [phone] 03/24/2019 Office Visit Gastroenterology Ovidio Verma MD [address] [place] [address] [phone] 04/02/2019 Office Visit Orthopedic Surgery Omar Clay, DO [address] [place] [address] [phone], Jennifer Adult Infusion Nurse 04/17/2019 Nurse Visit Infusion Therapy Sebastian Doe [address] [place] [address] [id number] [place], [place] [phone] 04/30/2019 Office Visit Pain Medicine Ginny Oneal MD [address] [place] [address]. [place] [address] 06/09/2019 Office Visit Gastroenterology Boogie Claymond Dominic, DO [address] [place] [address] [phone], Jennifer Adult Infusion Nurse 06/12/2019 Nurse Visit [place] [address] [place] [address] 06/19/2019 Office Visit Family Medicine [...] 1-44-28 / 0 / [id number] Bipolar Head, [place] Uhr Bipolar BIPOLAR Right: Hip Donal [id number] #[id number] - S0 head Implanted: Qty: 1 on 09/18/2017 by Sebastian Bunn MD at [facility] 07/07/2021 1023-12 / [id number] / [id number] Cancellous Cubes, [facility] Tissue BONE Right: Hip [facility] Services Freeze Dried 30 Cc Tissue #1023-12 - [id number] Services Implanted: Qty: 1 on 09/18/2017 by Sebastian Bunn MD at [facility] 03/08/2018 2018-40 / [id number] / [id number] Dbm Putty Maxxeus 10cc Cts #2018-40 BONE Right: Hip [facility] - [id number] Tissue Implanted: Qty: 1 on 09/18/2017 by Services Sebastian Bunn MD at [facility] 04/07/2022 1365-28-720 / 0 / [id number] Delta Ceramic Femoral Head 28mm +5 Head Right: Hip Depuy 12/14 Taper Depuy Ref#[id number] Synthes Implanted: Qty: 1 on 09/18/2017 by Sebastian Bunn MD at [facility] 03/29/2022 623-00-44F / 0 / [id number] Insert, [place] Trident 0deg 44mm Liner Right: Hip Donal #[id number] Implanted: Qty: 1 on 09/18/2017 by Sebastian Bunn MD at [facility] 04/24/2022 5260-5-050 / 0 / [id number] Screw Osteolock 3.[address] SCREW Right: Hip Donal Cancellous 50mm Donal Ref#[id number] Implanted: Qty: 2 on 09/18/2017 by Sebastian Bunn MD at [facility] 06/01/2022 5260-5-020 / 0 / [id number] Screw Ostelock 3.[address] SCREW Right: Hip [place] Cancellous 20mm Donal Ref#[id number] Implanted: Qty: 1 on 09/18/2017 by Sebastian Bunn MD at [facility] 06/01/2022 5260-5-016 / 0 / [id number] Screw Osteolock 3.[address] SCREW Right: Hip [place] Cancellous 18mm [place] Ref#[id number] Implanted: Qty: 1 on 09/18/2017 by Sebastian Bunn MD at [facility] 01/02/2022 [id number] / 0 / [id number] Shell, [place] Tritanium Revision Shell Right: Hip [place] Acetabular #[id number] - S0 Implanted: Qty: 1 on 09/18/2017 by Sebastian Bunn MD at [facility] documented as of this encounter Results Not on filedocumented in this encounter Visit Diagnoses Diagnosis Ankylosing spondylitis, unspecified sit e of spine - Primary Cervicalgia Myofascial pain Mylagia and myositis, unspecified Gastroesophageal reflux disease without esophagitis Esophageal reflux Nonerosive nonspecific gastritis Unspecified gastritis and gastroduodeni tis without mention of hemorrhage Painful patella, unspecified laterality Primary localized osteoarthrosis, lower leg, unspecified laterality Muscle weakness of lower extremity Muscle weakness (generalized) Effusion of lower leg joint Knee crepitus, unspecified laterality Patellofemoral instability of right kne e with pain Tobacco use disorder Vaginitis and vulvovaginitis Vaginitis and vulvovaginitis, unspecifi ed Essential hypertension Unspecified essential hypertension documented in this encounter Insurance Type Payer Benefit Subscriber ID Effective Phone Address Plan / Dates Group Medicare Adv [facility] [id number] 2018- MANAGED MEDICARE HEALTHCARE Present DUAL COMPLETE O Medicaid [facility] MEDICAID xxxxxxxxx 2019-P [phone] P O [facility] resent [id number] [place] [address] documented as of this encounter Advance Directives 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
--- OUTSIDE RECORDS SUMMARY | 2019-12-13 15:28 | XMS REPORT | Summary of Care ---
Author Author [facility] - Health Organization [facility] - Health Address Unknown Phone Unavailable Care Team Providers Care Nurse Midwife/Clinical Instructor Name Role Phone Ovidio Clarke MD PCP Reason for Referral * (Routine) Referred By Contact Referred To Contact Status Reason Specialty Diagnoses / Procedures Jess Tovar MD [address] [place] [phone] New Request Orthopedic Diagnoses Surgery Cervicalgia Bilateral carpal tunnel syndrome P rocedures CONSULT/REFERRAL ORTHOPAEDIC SURGERY Reason for Visit * Reason Comments Results Encounter Details Care Team Description Date Type Department Jess Tovar MD [address] [place] [phone] Results 02/20/2019 Telephone [facility], [address] [phone] Allergies Comments Active Allergy Reactions Severity Noted Date Aspirin Hives 03/21/2012 Sulfa (Sulfonamide Hives 11/29/2005 Antibiotics) documented as of this encounter (statuses as of 03/04/2019) Medications End Date Status Medication Sig Dispensed [...] as of this encounter (statuses as of 03/04/2019) Active Problems Problem Noted Date Special screening for malignant neoplasms, colon Overview: Added automatically from request for jimmy solorio [id number] Cervical spondylosis with radiculopathy 01/01/2019 Overview: Added automatically from request for jimmy solorio [id number] Mixed hyperlipidemia 08/13/2018 Overview: LDL 140 07/17/2018 Left tennis elbow 06/17/2018 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 Overview: R Avulsion fracture of lateral epicondyle of humerus 0 11/14/2017 Painful patella, unspecified laterality 11/05/2017 S/P revision of total hip 09/18/2017 Colon cancer screening 05/24/2017 Overview: Added automatically from request for jimmy solorio [id number] Hematemesis with nausea 05/24/2017 Overview: Added automatically from request for jimmy solorio [id number] Nausea and vomiting, intractability of vomiting not s pecified, unspecified 05/24/2017 vomiting type Overview: Added automatically from request for jimmy solorio [id number] ANJELICA (obstructive sleep apnea) 05/10/2017 Obesity (BMI 30-39.9) 05/01/2017 Microhematuria 02/14/2017 Complex tear of medial meniscus of right knee as curr ent injury, initial 01/18/2017 encounter Overview: Added automatically from request for jimmy solorio [id number] Elevated MCV 07/25/2016 Overview: 103.4 07/22/2016 Muscle [...] Hiatus hernia syndrome 04/09/2015 Overview: EGD 03/23/2015 [facility] [place] 01/06/2015 Immunization deficiency 10/09/2014 Overview: [...] lower leg 11/25/2013 Overview: ICD10 Diagnosis Term 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 Knee crepitus 11/25/2013 Genu valgum, acquired 11/25/2013 Overview: ICD10 Diagnosis Term 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 Patellofemoral misalignment with pain 11/25/2013 [...] 11/16/2010 Headache 04/08/2010 Overview: ICD10 Diagnosis Term 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 Lloyd Glossitis 02/23/2010 Tobacco use disorder 02/23/2010 Menorrhagia 05/19/2009 Vision blurred 05/19/2009 Acute upper respiratory infection 08/14/2008 Overview: ICD10 Diagnosis Term 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 Acute pharyngitis 08/14/2008 Screening for malignant neoplasm of cervix 9 Overview: ICD10 Diagnosis Term 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 Breast screening 07/16/2008 Overview: ICD10 Diagnosis Term 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 Urinary tract infection, site not specified 04/29/20 08 Backache 06/02/2007 Overview: Lower back pain ICD10 Diagnosis Term 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 Pain in joint 06/02/2007 Overview: ICD10 Diagnosis Term 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 Cervicalgia 06/02/2007 Myalgia and myositis 06/02/2007 Overview: Bilateral trapezius pain ICD10 Diagnosis Term 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 Absence of menstruation 04/25/2007 Anemia 03/25/2007 Overview: ICD10 Diagnosis Term 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 Helicobacter pylori infection 06/11/2006 Overview: ICD10 Diagnosis Term 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 Acute peptic ulcer 06/11/2006 Overview: ICD10 Diagnosis Term 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 Abdominal pain 04/25/2006 Overview: ICD10 Diagnosis Term 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 Ankylosing spondylitis 04/25/2006 Vaginitis and vulvovaginitis 04/25/2006 Overview: ICD10 Diagnosis Term 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 Other, mixed, or unspecified nondependent drug abuse, continuous 11/30/2005 documented as of this encounter (statuses as of 03/04/2019) Resolved Problems Problem Noted Date Resolved Date Arm laceration, right, subsequent encounter 04/13/2014 04/13/2014 Syncope and collapse 02/27/2007 06/28/2014 Bipolar I disorder, most recent episode (or current) unspec ified 01/03/2007 01/23/2018 Overview: Dr. 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 documented as of this encounter (statuses as of 03/04/2019) Immunizations Name Administration Dates Next Due Influenza [...] Care Team Description Date Type Specialty Omar Clya, DO [address] [place] [address] [phone] 03/05/2019 Office Visit Rheumatology Daniela Velarde, TRAFFIC SIGN ERECTION SUPERVISOR [address] [facility] [address] [place] [address] [phone] 03/12/2019 Office Visit Orthopedic Surgery Jess Tovar MD [address] [place], [place] [address] 03/13/2019 Office [place] [address] [place] [phone] 03/19/2019 Office Visit Family Medicine Ginny Oneal MD [address] [place] [phone] 03/24/2019 Office Visit Gastroenterology Omar Clay, DO [address] [place] [address] [phone], Jennifer Adult Infusion Nurse 04/17/2019 Nurse Visit Infusion Therapy Sebastian Doe [address] [place] [address] [id number] [place], [place] [phone] 04/30/2019 Office Visit Pain Medicine Ginny Oneal MD [address] [place] [phone] 06/09/2019 Office Visit Gastroenterology Omar Clay, DO [address] [place] [address] [phone], Jennifer Adult Infusion Nurse 06/12/2019 Nurse [...] Donal Uhr Bipolar BIPOLAR Right: Hip Donal 86x69ts #Uh1-44-28 - S0 head Implanted: Qty: 1 on 09/18/2017 by Sebastian Bunn MD at [facility] 07/07/2021 1023-12 / [id number] / [id number] Cancellous Cubes, Community Tissue BONE Right: Hip [facility] Services Freeze Dried 30 Cc Tissue #1023-12 - [id number] Services Implanted: Qty: 1 on 09/18/2017 by Sebastian Bunn MD at [facility] 03/08/20182017-40 / [id number] / [id number] Dbm Putty Maxxeus 10cc Cts #2018-40 BONE Right: Hip [facility] - [id number] Tissue Implanted: Qty: 1 on 09/18/2017 by Services Sebastian Bunn MD at [facility] 04/07/2022 1365-28-720 / 0 / [id number] Delta Ceramic Femoral Head 28mm +5 Head Right: Hip Depuy 06/21 Taper Depuy Ref#[id number] Synthes Implanted: Qty: 1 on 09/18/2017 by Sebastian Bunn MD at [facility] 03/29/2022 623-00-44F / 0 / [id number] Insert, Donal Trident 0deg 44mm Liner Right: Hip Salix #623-00-44f Implanted: Qty: 1 on 09/18/2017 by Sebastian Bunn MD at [facility] 04/24/2022 5260-5-050 / 0 / [id number] Screw Osteolock 3.[address] SCREW Right: Hip Salix Cancellous 50mm Salix Ref#[id number] Implanted: Qty: 2 on 09/18/2017 by Sebastian Bunn MD at [facility] 06/01/2022 5260-5-020 / 0 / [id number] Screw Ostelock 3.[address] SCREW Right: Hip Donal Cancellous 20mm Donal Ref#5260-5-020 Implanted: Qty: 1 on 09/18/2017 by Sebastian Bunn MD at [facility] 06/01/2022 5260-5-016 / 0 / [id number] Screw Osteolock 3.[address] SCREW Right: Hip Donal Cancellous 18mm Salix Ref#[id number] Implanted: Qty: 1 on 09/18/2017 by Sebastian Bunn MD at [facility] 01/02/2022 509-02-60F / 0 / [id number] Shell, Donal Tritanium Revision Shell Right: Hip Donal Acetabular #509-02-60f - S0 Implanted: Qty: 1 on 09/18/2017 by Sebastian Bunn MD at [facility] documented as of this encounter Results Not on filedocumented in this encounter Visit Diagnoses Diagnosis Cervicalgia - Primary Bilateral carpal tunnel syndrome Carpal tunnel syndrome documented in this encounter Insurance Type Payer Benefit Subscriber ID Effective Phone Address Plan / Dates Group Medicare Adv HMO [facility] [id number] 2018- MANAGED MEDICARE HEALTHCARE Present DUAL COMPLETE HMO [facility] [employer] [id number] 2018- [address] SOLUTIONS Present [id number] [place] [address] Medicaid [place] MEDICAID xxxxxxxxx 2019-P [phone] [address] [place] [id number] [place] [address] documented as of this encounter 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
--- OUTSIDE RECORDS SUMMARY | 2019-12-13 15:29 | XMS REPORT | Clinical Summary ---
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 Active esomeprazole (NEXIUM) 40 Take 1 180 capsule 3 0 mg capsuleIndications: capsule by 9 Gastroesophageal reflux mouth 2 (two) disease without times daily. esophagitis, Nonerosive TAKE ONE nonspecific gastritis CAPSULE BY MOUTH EVERY MORNING WITH BREAKFAST Active cyclobenzaprine 5 mg TAKE 1 TABLET 30 tablet 5 tabletIndications: BY MOUTH 9 Ankylosing spondylitis, THREE TIMES unspecified site of spine DAILY Active hydroCHLOROthiazide 25 mg Take 1 tablet [...] localized osteoarthrosis, lower leg, unspecified laterality Active GABAPENTIN 300 mg TAKE 1 60 capsule 0 04/14/20 1 capsuleIndications: CAPSULE BY 9 Ankylosing spondylitis, MOUTH TWICE unspecified site of spine DAILY Active metoclopramide HCl 10 mg Take 1 tablet 15 tablet 0 tabletIndications: by mouth 9 Epigastric pain, Chronic every 6 (six) GERD, Constipation, hours as unspecified constipation needed for type Nausea and Vomiting (N/V) (headache) for up to 15 doses. Active Polyethylene Glycol 3350 Take 1 Packet 12 Packet 0 (MIRALAX) 17 gram by mouth 9 powderIndications: every 4 Epigastric pain, Chronic (four) hours GERD, Constipation, as needed for unspecified constipation Constipation type for up to 12 doses. Active DICLOFENAC SODIUM 1 % APPLY 100 g 0 05/09 gelIndications: Painful EXTERNALLY TO 9 patella, unspecified THE AFFECTED laterality, Primary AREA FOUR localized osteoarthrosis, TIMES DAILY lower leg, unspecified NEEDED FOR laterality, Muscle PAIN weakness of lower extremity, Effusion of lower leg joint, Knee crepitus, unspecified laterality, Patellofemoral instability of right knee with pain Active CYCLOBENZAPRINE 5 mg TAKE 1 TABLET 30 tablet 0 tabletIndications: BY MOUTH 9 Ankylosing spondylitis, THREE TIMES unspecified site of spine DAILY Active methotrexate 2.5 mg Take by mouth 60 tablet 0 05/10 tabletIndications: TAKE 5 9 Ankylosing spondylitis of TABLETS BY multiple sites in spine MOUTH 1 TIME WEEKLY Active metroNIDAZOLE 500 mg TK 1 T PO 0 tablet BID X 7 DAYS 9 Active ziprasidone 20 mg Take 1 60 capsule 2 06/11/20 1 capsuleIndications: capsule by 9 Schizoaffective disorder, mouth 2 (two) depressive type times daily with meals. Status Hospital, Clinic, or Ordered Dose Route Frequency Start End Date Other Facility Date Administered Medication Active lactated ringers IV 1000 mL IV Infusion CONTINUOUS infusion 1,000 mL 19 Active Problems Problem Noted Date Essential hypertension 03/19/2019 Carpal tunnel syndrome on right 03/19/2019 Overview: EMG 02/18/2019 Special screening for malignant neoplasms, colon Overview: Added automatically from request for jimmy solorio [id number] Cervical spondylosis with radiculopathy 01/01/2019 Overview: Added automatically from request for jimmy solorio [id number] Mixed hyperlipidemia 08/13/2018 Overview: LDL 140 07/17/2018 Left tennis elbow 06/17/2018 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 Overview: R Avulsion fracture of lateral epicondyle of humerus 0 11/14/2017 Painful patella, unspecified laterality 11/05/2017 S/P revision of total hip 09/18/2017 Colon cancer screening 05/24/2017 Overview: Added automatically from request for jimmy solorio [id number] Hematemesis with nausea 05/24/2017 Overview: Added automatically from request for jimmy solorio [id number] Nausea and vomiting, intractability of vomiting not s pecified, unspecified 05/24/2017 vomiting type Overview: Added automatically from request for jimmy solorio [id number] ANJELICA (obstructive sleep apnea) 05/10/2017 Obesity (BMI 30-39.9) 05/01/2017 Microhematuria 02/14/2017 Complex tear of medial meniscus of right knee as curr ent injury, initial 01/18/2017 encounter Overview: Added automatically from request for jimmy solorio [id number] Elevated MCV 07/25/2016 Overview: 103.4 07/22/2016 Muscle [...] opacitiy on chest xray at [facility] 05/22/2015 Hiatus hernia syndrome 04/09/2015 Overview: EGD 03/23/2015 [facility] screening mammogram 01/06/2015 Immunization deficiency [...] lower leg 11/25/2013 Overview: ICD10 Diagnosis [employer] Knee crepitus 11/25/2013 Genu valgum, acquired 11/25/2013 Overview: ICD10 Diagnosis [employer] Patellofemoral misalignment with pain 11/25/2013 Primary [...] 11/16/2010 Headache 04/08/2010 Overview: ICD10 Diagnosis [employer] Nonerosive nonspecific gastritis 04/08/2010 Overview: EGD Dr. Lloyd Glossitis 02/23/2010 Tobacco use disorder 02/23/2010 Menorrhagia 05/19/2009 Vision blurred 05/19/2009 Acute upper respiratory infection 08/14/2008 Overview: ICD10 Diagnosis [employer] Acute pharyngitis 08/14/2008 Screening for malignant neoplasm of cervix Overview: ICD10 Diagnosis [employer] Breast screening 07/16/2008 Overview: ICD10 Diagnosis [employer] Urinary tract infection, site not specified 04/29/20 08 Backache 06/02/2007 Overview: Lower back pain ICD10 Diagnosis [employer] Pain in joint 06/02/2007 Overview: ICD10 Diagnosis [employer] Cervicalgia 06/02/2007 Myalgia and myositis 06/02/2007 Overview: Bilateral trapezius pain ICD10 Diagnosis [employer] Absence of menstruation 04/25/2007 Anemia 03/25/2007 Overview: ICD10 Diagnosis [employer] Helicobacter pylori infection 06/11/2006 Overview: ICD10 Diagnosis [employer] Acute peptic ulcer 06/11/2006 Overview: ICD10 Diagnosis [employer] Abdominal pain 04/25/2006 Overview: ICD10 Diagnosis [employer] Ankylosing spondylitis 04/25/2006 Vaginitis and vulvovaginitis 04/25/2006 Overview: ICD10 Diagnosis [employer] Other, mixed, or unspecified nondependent drug abuse, continuous 11/30/2005 Resolved Problems Problem Noted Date Resolved Date Arm laceration, right, subsequent encounter 04/13/2014 04/13/2014 Syncope and collapse 02/27/2007 06/28/2014 Bipolar I disorder, most recent episode (or current) unspec ified 01/03/2007 01/23/2018 Overview: Dr. 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 11/30/2005 02/11/2018 Overview: ICD10 Diagnosis [employer] Encounters Care Team Description Date Type Specialty Ovidio Clarke Jr., MD Refill Request 06/06/2019 Refill Family Medicine Sebastian Doe MD Cervical spondylosis with radiculopathy (Primary Dx); Chronic pain syndrome; Carpal tunnel syndrome of right wrist 06/04/2019 Office Visit Pain Medicine Zia Resendez MD Bilateral carpal tunnel syndrome (Primar y Dx) 06/03/2019 Office Visit Orthopedic Surgery Zia Resendez MD Appointment 06/03/2019 Telephone Orthopedic Surgery Omar Clay DO Refill Request 06/01/2019 Refill Rheumatology Ovidio Clarke Jr., MD Refill Request 05/27/2019 Refill Family Medicine Ovidio Verma MD 05/23/2019 Hospital Radiology Encounter Ovidio Clarke Jr., MD Refill Request 05/23/2019 Refill Family Medicine Ovidio Verma MD Cervical radiculopathy (Primary Dx) 05/14/2019 Office Visit Orthopedic Surgery Ovidio Clarke Jr., MD Refill Request 05/14/2019 Refill Family Medicine Ovidio Clarke Jr., MD Refill Request 04/28/2019 Refill Family Medicine Ovidio Clarke Jr., MD Refill Request 04/21/2019 Refill Family Medicine Sarah Mcdonough RN ED F/U 04/18/2019 Patient Case Management Outreach Fabiano Culver MD Epigastric pain (Primary Dx); Chronic GERD; Constipation, unspecified constipation type 04/17/2019 Emergency Emergency Medicine Omar Clay DO 3, Jennifer Adult Infusion Nurse Ankylosing spondylitis, unspecified site of spine (Primary Dx) 04/17/2019 Nurse Visit Infusion Therapy Omar Clay DO Rx Concern/Question 04/17/2019 Telephone Rheumatology Ovidio Clarke Jr., MD Refill Request 04/14/2019 Refill Family Medicine Doctor Unassigned, [place] 04/11/2019 Orders Only Omar Clay DO Notification 04/09/2019 Telephone Rheumatology Omar Clay DO Other (Dr. Good's note) 04/08/2019 Telephone Rheumatology Omar Clay DO Forms 04/03/2019 Telephone Rheumatology Omar Clay DO Ankylosing spondylitis of multiple sites in spine (Primary Dx); Mycobacterium avium infection; Therapeutic drug monitoring 04/02/2019 Office Visit Rheumatology Ovidio Verma MD 04/02/2019 Hospital Radiology Encounter Ovidio Verma MD Bilateral carpal tunnel syndrome (Primar y Dx); Pain in both hands 04/02/2019 Office Visit Orthopedic Surgery Tawnya Johnson MD Pain (Primary Dx) 04/01/2019 Abstract Orthopedic Surgery Ovidio Clarke Jr., MD Ankylosing spondylitis, unspecified site of spine (Primary Dx); Cervicalgia; Myofascial pain; Gastroesophageal reflux disease without esophagitis; Nonerosive nonspecific gastritis; Painful patella, unspecified laterality; Primary localized osteoarthrosis, lower leg, unspecified laterality; Muscle weakness of lower extremity; Effusion of lower leg joint; Knee crepitus, unspecified laterality; Patellofemoral instability of right knee with pain; Tobacco use disorder; Vaginitis and vulvovaginitis; Essential hypertension 03/19/2019 Office Visit Family Medicine Doctor Unassigned, [place] 03/18/2019 Orders Only Daniela Velarde FNP Bilateral carpal tunnel syndrome (Primar y Dx) 03/12/2019 Office Visit Orthopedic Surgery Doctor Unassigned, [place] 03/12/2019 Orders Only from Last 3 Months Immunizations Name Administration Dates Next Due Influenza Virus Vaccine 05/01/2018, 05/10/2012, 07/2010, 05/20/2010, 05/05/2008 Influenza Virus Vaccine 04/09/2013 (3+ yrs) Influenza Virus Vaccine 05/10/2017, 05/26/2015, 04/2015 (Deferred: Quad IM 3+ YRS Immunizations Up to Date - incorrect vaccine ordered; s/b prevnar 13) PPD (TB) 08/10/2014, 05/19/2008 Pneumococcal 13 08/18/2014 Conjugate, PCV13 (Prevnar 13) TDAP (ADACEL) VACCINE 08/24/2014 Td 04/01/2014 Family History Medical History Relation Name Comments Diabetes Mother Breast Cancer NoFHx Cancer NoFHx Colon Cancer NoFHx Heart NoFHx Ovarian Cancer NoFHx Uterine Cancer NoFHx Relation Name Status Comments Father Mother Mother Social History Date Tobacco Use Types Packs/Day [...] Travel Start No recent travel history available. Last Filed Vital Signs Reading Time Taken Comments Vital Sign 146/69 06/11/2019 9:04 AM ENDOSCOPY TECH Blood Pressure 88 06/11/2019 9:04 AM ENDOSCOPY TECH Pulse 36.1 C (97 F) 06/03/2019 3:22 PM ENDOSCOPY TECH Temperature 18 06/11/2019 9:04 AM ENDOSCOPY TECH Respiratory Rate 98% 04/17/2019 3:36 PM CDT Oxygen Saturation - - Inhaled Oxygen Concentration 89.8 kg (198 lb) 06/11/2019 9:04 AM ENDOSCOPY TECH Weight 165.1 cm (5' 5") 06/11/2019 9:04 AM ENDOSCOPY TECH Height 32.95 06/11/2019 9:04 AM ENDOSCOPY TECH Body Mass Index Plan of Treatment Care Team Description Date Type Specialty Omar Clay, DO [address] [place] [id number] [phone] 3, Jennifer Adult Infusion Nurse 06/12/2019 Nurse Visit Infusion Therapy Zia Resendez MD [id number] [place], [place] [id number] 06/18/2019 Hospital Surgery Encounter Zia Resendez MD [id number] [place], [place] [id number] OPEN CARPAL TUNNEL RELEASE 06/18/2019 [place] [address] [place] [phone] 06/19/2019 Office Visit Family Medicine Omar Clay, DO [address] [place] [id number] [phone] 06/25/2019 Office Visit Rheumatology Sebastian Doe MD [id number] [place] [address] [phone] 07/29/2019 Office Visit Pain Medicine Health Maintenance Due Date Last Done Comments PNEUMOCOCCAL 0-64 YEARS 10/13/2014 08/18/2014 COMBINED SERIES (2 of 3 - PPSV23) Zoster Recombinant 2014 Vaccine (SHINGRIX) (1 of 2) INFLUENZA VACCINE (#1) 2019 05/01/2018, 08/2016, 05/26/2015, Additional history exists Breast Cancer Screening 06/14/2019 06/14/2018, (MAMMOGRAM) PAP SMEAR 11/04/2019 11/03/2016 (Previou sly completed), 07/16/2008, 05/26/2005, Additional history exists DTaP,Tdap,and Td Vaccines 08/24/2024 08/24/2014, 04/01/2014 (2 - Td) COLONOSCOPY 02/17/2029 02/17/2019, 015 HEPATITIS C (HCV) SCREEN Completed 11/17/2015, 1 07/28/2012, 10/11/2004, Additional history exists Goals Goal Patient Associated Recent Progress Patient-Stat Aut hor Goal Type Problems ed? Quit using tobacco Tobacco No [place], (cigarettes, smokeless, etc) Use Odalys Gauthier MA Implants Device Identifier Shelf Expiration Date Model / Serial / L ot Implanted Type Area Manufactur er 08/23/2022 [id number] / 0 / [id number] Bipolar Head, Donal Uhr Bipolar BIPOLAR Right: Hip Donal 95i59ra #[id number] - S0 head Implanted: Qty: 1 on 09/18/2017 by Sebastian Bunn MD at [facility] 07/07/2021 1023-12 / [id number] / [id number] Cancellous Cubes, Community Tissue BONE Right: Hip Formerly [facility] Services Freeze Dried 30 Cc Tissue #1023-12 - [id number] Services Implanted: Qty: 1 on 09/18/2017 by Sebastian Bunn MD at [facility] 03/08/20182017-40 / [id number] / [id number] Dbm Putty Maxxeus 10cc Cts # BONE Right: Hip Community - [id number] Tissue Implanted: Qty: 1 on 09/18/2017 by Services Sebastian Bunn MD at [facility] 04/07/2022 [id number] / 0 / [id number] Delta Ceramic Femoral Head 28mm +5 Head Right: Hip Depuy 06/21 Taper Depuy Ref#[id number] Synthes Implanted: Qty: 1 on 09/18/2017 by Sebastian Bunn MD at [facility] 03/29/2022 [id number] / 0 / [id number] Insert, Lena Trident 0deg 44mm Liner Right: Hip Donal #[id number] Implanted: Qty: 1 on 09/18/2017 by Sebastian Bunn MD at [facility] 04/24/2022 5260-5-050 / 0 / [id number] Screw Osteolock 3.[address] SCREW Right: Hip Donal Cancellous 50mm Donal Ref#[id number] Implanted: Qty: 2 on 09/18/2017 by Sebastian Bunn MD at [facility] 06/01/2022 5260-5-020 / 0 / [id number] Screw Ostelock 3.[address] SCREW Right: Hip Lena Cancellous 20mm Lena Ref#[id number] Implanted: Qty: 1 on 09/18/2017 by Sebastian Bunn MD at [facility] 06/01/2022 5260-5-016 / 0 / [id number] Screw Osteolock 3.[address] SCREW Right: Hip Lena Cancellous 18mm Donal Ref#[id number] Implanted: Qty: 1 on 09/18/2017 by Sebastian Bunn MD at [facility] 01/02/2022 [id number] / 0 / [id number] Shell, Donal Tritanium Revision Shell Right: Hip Lena Acetabular #[id number] - S0 Implanted: Qty: 1 on 09/18/2017 by Sebastian Bunn MD at [facility] Procedures Comments Procedure Name Priority Date/Time Associated Diag nosis MR CERVICAL SPINE WO Routine 05/23/2019 Cervical radiculopathy CONTRAST 2:36 PM ENDOSCOPY TECH XR ABDOMEN ACUTE SERIES STAT 04/17/2019 Epigas tric pain 2:33 PM CDT CBC WITH DIFFERENTIAL STAT 04/17/2019 Epigastr ic pain 2:03 PM CDT TROPONIN I STAT 04/17/2019 Epigastric pain 2:03 PM CDT LIPASE STAT 04/17/2019 Epigastric pain 2:03 PM CDT HEPATIC FUNCTION PANEL STAT 04/17/2019 Epigast eunice pain (32139) (ALB,T.PRO,BILI 2:03 PM CDT T,BU/BC,ALT,AST,ALK PHOS) BASIC METABOLIC PANEL STAT 04/17/2019 Epigastr ic pain (NA, K, CL, CO2, GLUCOSE, 2:03 PM CDT BUN, CREATININE, CA) CBC WITH DIFFERENTIAL Routine 04/17/2019 Epigastr ic pain 2:03 PM CDT EKG-12 LEAD Routine 04/17/2019 1:48 PM CDT EMERGENCY SERVICES Routine 04/17/2019 AGREEMENTS AND 12:01 AM CDT AUTHORIZATIONS EXTERNAL PROVIDER RECORDS Routine 04/14/2019 12:01 AM CDT EXTERNAL PROVIDER RECORDS Routine 04/11/2019 12:01 AM CDT XR HAND 3+ VW BILATERAL Routine 04/02/2019 Pain 10:52 AM CDT EXTERNAL PROVIDER RECORDS Routine 03/18/2019 12:01 AM CDT PATIENT AGREEMENTS AND Routine 03/12/2019 CONTRACTS 12:01 AM CDT AUTHORIZATION FOR RELEASE Routine 03/12/2019 OF PHI 12:01 AM CDT PATIENT QUESTIONNAIRE Routine 03/12/2019 12:01 AM CDT PATIENT QUESTIONNAIRE Routine 03/12/2019 12:01 AM CDT from Last 3 Months Results * MR CERVICAL SPINE WO CONTRAST (05/23/2019 2:36 PM ENDOSCOPY TECH) Specimen Impressions Performed At Impression: PACS/VR/DOSE Multilevel spondylosis and spondyloarth ropathy most pronounced at C4-C5 and C5-C6 resulting in mild spinal canal st enosis. Moderate right C5-C6 and neural foramin al narrowing. No abnormal cervical cord signal. Prominent posterior nasopharyngeal wall and palatine tonsils suggestive of adenoidal hypertrophy, atypical for pat ient age. Further ENT evaluation is recommended. Preliminary Report Dictated by Resident : Philip Yeung IMAGES QUALITY: No axial T2 GRE sequence. ITanja MD., have reviewed t his study and agree with the above report. Narrative Performed At Exam: MR CERVICAL SPINE WO CONTRAST PACS/VR/DOSE Clinical History: Radiculopathy Technique:Multiplanar multisequence MRI of cervical spine was obtained on 1.5 without intravenous administration of contrast. Comparison: MRI of the cervical spine w ithout contrast dated 12/18/2018 Findings: There is straightening of cervical. The vertebral bodies are normal in height and in normal alignment. The cervical cord demonstrates normal s ignal intensity. Schmorl's nodes are noted at the superi or endplate C5 and C6 vertebral bodies. Type II Modic endplate changes are seen at C5-C6 and C6-C7 levels.The background marrow signal is otherwise unremarkable. Mild disc height loss and disc desiccat ion is noted throughout the cervical spine C2/C3: no significant spinal canal sten osis or neural foraminal narrowing. C3/C4: no significant spinal canal sten osis or neural foraminal narrowing. C4/C5: Posterior disc osteophyte comple x flattens the ventral cervical cord and results in mild spinal canal stenos is. Mild uncovertebral arthrosis contribute to mild bilateral neural for aminal narrowing. C5/C6: Bilateral uncovertebral arthrosi s and posterior disc osteophyte complex are resulting in mild to modera te spinal canal and moderate right, mild left neural foraminal narrowing. C6/C7: Bilateral uncovertebral degenera tion and posterior disc osteophyte complex along with ligamentum flavum th ickening are resulting in mild spinal canal stenosis and mild bilatera l neural foraminal narrowing. C7/T1: no significant spinal canal sten osis or neural foraminal narrowing. Prominent posterior nasopharyngeal wall and palatine tonsils, atypical for patient age. Procedure Note [facility], Radiant Results Inft User - 05/23/2019 8:53 PM ENDOSCOPY TECH Exam: MR CERVICAL SPINE WO CONTRAST Clinical History: Radiculopathy Technique:Multiplanar multisequence MRI of cervical spine was obtained on 1.5 without intravenous administration o f contrast. Comparison: MRI of the cervical spine without contrast dated 12/18/2018 Findings: There is straightening of cervical. The vertebral bodies are normal in height and in normal alignment. The cervical cord demonstrates normal signal intensity. Schmorl's nodes are noted at the superior endplate C5 and C6 vertebral bodies. Type II Modic endplate changes are seen at C5-C6 and C6-C7 levels.The background marrow signal is otherwise unremarkable. Mild disc height loss and disc desiccation is noted throughout the cervical spine C2/C3: no significant spinal canal stenosis or neural foraminal narrowing. C3/C4: no significant spinal canal stenosis or neural foraminal narrowing. C4/C5: Posterior disc osteophyte complex flattens the ventral cervical cord and results in mild spinal canal stenosis. Mild uncovertebral arthrosis contribute to mild bilateral neural foraminal narrowing. C5/C6: Bilateral uncovertebral arthrosis and posterior disc osteophyte complex are resulting in mild to moderate spinal canal and moderate right, mild left neural foraminal narrowing. C6/C7: Bilateral uncovertebral degeneration and posterior disc osteophyte complex along with ligamentum flavum thickening are resulting in mild spinal canal stenosis and mild bilateral neural foraminal narrowing. C7/T1: no significant spinal canal stenosis or neural foraminal narrowing. Prominent posterior nasopharyngeal wall and palatine tonsils, atypical for patient age. IMPRESSION Impression: Multilevel spondylosis and spondyloarthropathy most pronounced at C4-C5 and C5-C6 resulting in mild spinal canal stenosis. Moderate right C5-C6 and neural foraminal narrowing. No abnormal cervical cord signal. Prominent posterior nasopharyngeal wall and palatine tonsils suggestive of adenoidal hypertrophy, atypical for patient age. Further ENT evaluation is recommended. Preliminary Report Dictated by Resident: Philip Yeung IMAGES QUALITY: No axial T2 GRE sequence. ITanja MD., have reviewed this study and agree with the above report. Performing Organization Address City/State/Zipcode Ph one Number PACS/VR/DOSE * XR ABDOMEN ACUTE SERIES (04/17/2019 2:33 PM CDT) Specimen Impressions Performed At 1. Bibasilar subsegmental atelectasis. PACS/VR/DOS E 2. Nonobstructive bowel gas pattern I, Néstor Grier MD., have review ed this study and agree with the above report. Narrative Performed At EXAM: XR ABDOMEN ACUTE SERIES PACS/VR/DOSE HISTORY: 53 years-old Female presenting with epigastric pain COMPARISON: CT abdomen and pelvis 2018 FINDINGS: The lungs are clear with no focal conso lidation except bibasilar subsegmental atelectasis. There is no p leural effusion or pneumothorax. The cardiomediastinal silhouette is nor mal. The bowel gas pattern is non-obstructiv e. Fecal matter is seen throughout the colon. No abnormal calcifications or radiopaqu e stones are identified. No acute bony abnormalities are noted. Scattered pelvic phleboliths. Trey are seen in the left neck regio n, can be external to the patient. Right total hip arthroplasty with adjac ent pelvic and femur loose ossified bodies. Procedure Note [facility], Radiant Results Inft User - 04/17/2019 5:09 PM CDT EXAM: XR ABDOMEN ACUTE SERIES HISTORY: 53 years-old Female presenting with epigastric pain COMPARISON: CT abdomen and pelvis 01/23/2019 FINDINGS: The lungs are clear with no focal consolidation except bibasilar subsegmental atelectasis. There is no pleural effusion or pneumothorax. The cardiomediastinal silhouette is normal. The bowel gas pattern is non-obstructive. Fecal matter is seen throughout the colon. No abnormal calcifications or radiopaque stones are identified. No acute bony abnormalities are noted. Scattered pelvic phleboliths. [place] are seen in the left neck region, can be external to the patient. Right total hip arthroplasty with adjacent pelvic and femur loose ossified bodies. IMPRESSION 1. Bibasilar subsegmental atelectasis. 2. Nonobstructive bowel gas pattern I, Néstor Grier MD., have reviewed this study and agree with the above report. Performing Organization Address City/State/Zipcode Ph one Number PACS/VR/DOSE * CBC WITH DIFFERENTIAL (04/17/2019 2:03 PM CDT) WBC 9.29 4.30 - 11.10 [facility] 10*3/L [facility] RBC 4.10 3.93 - 5.25 10*6/L [facility] HGB 13.9 11.6 - 15.0 g/dL [facility] HCT 41.3 35.7 - 45.2 % [facility] MCV 100.7 (H) 80.6 - 95.5 fL [facility] MCH 33.9 (H) 25.9 - 32.8 pg [facility] MCHC 33.7 31.6 - 35.1 g/dL [facility] RDW-SD 49.2 39.0 - 49.9 fL [facility] RDW-CV 13.3 12.0 - 15.5 % [facility] PLT 318 166 - 358 10*3/L [facility] [facility] MPV 10.1 9.5 - 12.9 fL [facility] NRBC/100 WBC 0.0 0.0 - 10.0 /100 WBCs [facility] NRBC x10^3 <0.01 10*3/L [facility] GRAN MAT (NEUT) 58.5 % [facility] Y % [facility] IMM GRAN % 0.20 % [facility] LYMPH % 32.3 % [facility] MONO % 7.4 % [facility] EOS % 1.4 % [facility] BASO % 0.2 % [facility] GRAN MAT 5.43 1.88 - 7.09 10*3/uL [facility] AT[facility] x10^3(ANC) [facility] IMM GRAN x10^3 <0.03 0.00 - 0.06 10*3/uL [facility] LYMPH x10^3 3.00 1.32 - 3.29 10*3/uL [facility] MONO x10^3 0.69 0.33 - 0.92 10*3/uL [facility] EOS x10^3 0.13 0.03 - 0.39 10*3/uL [facility] BASO x10^3 <0.03 0.01 - 0.07 10*3/uL [facility] Specimen Blood - ARM, LEFT Performing Organization Address City/State/Zipcode Ph one Number [facility] CLIA: [id number], [address] [place], [place] [address] [facility] * Basic Metabolic Panel (NA, K, CL, CO2, GLUCOSE, BUN, CREATININE, CA) (04/17/2019 2:03 PM CDT) NA 137 135 - 145 mmol/L [facility] K 4.1 3.5 - 5.0 mmol/L [facility] CL 104 98 - 108 mmol/L [facility] Y [facility] CO2 TOTAL 24 23 - 31 mmol/L [facility] AGAP 9 2 - 16 [facility] BUN 12 7 - 23 mg/dL [facility] GLUCOSE 92 70 - 110 mg/dL [facility] CREATININE 0.61 0.50 - 1.04 mg/dL [facility] OR [facility] CALCIUM 9.5 8.6 - 10.6 mg/dL [facility] eGFR 102.2 mL/min/1.73m2 [facility] [place] eGFR 123.9 mL/min/1.73m2 [facility] [place]) Specimen Blood - ARM, LEFT Narrative Performed At Association of Glomerular Filtration Rate (GFR) and S taging of Kidney Disease* [facility] + + +------ + [facility] | GFR (mL/min/1.73 m2) | With Kidney Damage | [facility] + + -------+ + | >90 | S tage one | Normal + + -------+ + | 60-89 | St age two | Decreased GFR + + -------+ + | 30-59 | St age three | Stage three + + -------+ + | 15-29 | St age four | Stage four + + -------+ + | <15 (or dialysis) | Stage fi ve | Stage five + + -------+ + *Each stage assumes the associated GFR level has been in effect for at least three months. Stages 1 to 5, with or without kidney [...] abnormalities in imaging tests). Performing Organization Address [facility] one Number [facility] CLIA: [id number], [facility] [place], [place] [address] [facility] * Hepatic Function Panel (ALB, T.PRO, BILI T, BU/BC, ALT, AST, ALK PHOS) (04/17/2019 2:03 PM CDT) [facility] TOTAL BILI 0.3 0.1 - 1.1 mg/dL [facility] Y [facility] BILI UNCON 0.0 (L) 0.1 - 1.1 mg/dL [facility] BILI CONJ 0.0 0.0 - 0.3 mg/dL [facility] Y [facility] T PROTEIN 7.5 6.3 - 8.2 g/dL [facility] ALBUMIN 4.2 3.5 - 5.0 g/dL [facility] ALK PHOS 93 34 - 122 U/L [facility] ALT(SGPT) 12 9 - 51 U/L [facility] AST(SGOT) 16 13 - 40 U/L [facility] Specimen Blood - ARM, LEFT Performing Organization Address City/[facility] Ph one Number [facility] CLIA: [id number], [address] [place], [place] [address] [facility] * Troponin I (04/17/2019 2:03 PM CDT) TROPONIN I 0.001 <=0.034 ng/mL [facility] Specimen Blood - ARM, LEFT Narrative Performed At Equal or Less than 0.034 ng/ml---Normal [facility] Note: Cardiac troponin begins to rise 3-4 hours after the onset of ischemia. [facility] Repeat in 4-6 hours if the sample was d rawn within 3-4 hours of the onset of the TALKEETNA symptom and found normal. Between 0.035 and 0.120 ng/mL--- Border line. Questionable myocardial injury or necrosis Note: Serial measurement may be necessa ry to confirm or exclude the diagnosis of myocardial injury or necrosis; Clinical correlation (symptoms, EKGs, imaging studies, and others) required; Repeat i n 4-6 hours if clinically indicated. Equal or Higher than 0.121 ng/mL---Abno rmal. Myocardial Injury or Necrosis Likely Biotin has been reported to cause a neg ative bias, interpret results relative to patient's use of biotin. Performing Organization Address [facility] Ph one Number [facility] CLIA: [id number], [address] [place], [place] [address] [facility] * Lipase Serum (04/17/2019 2:03 PM CDT) Pathologist [facility] LIPASE 86 0 - 220 U/L [facility] Specimen Blood - ARM, LEFT Performing Organization [facility] Ph one Number [facility] CLIA: [id number], [address] [place], [place] [address] [facility] * EKG-12 LEAD (04/17/2019 1:48 PM CDT) Specimen Performing [facility] Ph one Number [facility] * EMERGENCY SERVICES AGREEMENTS AND AUTHORIZATIONS (04/17/2019 12:01 AM CDT) Specimen Performing [facility]/State[facility] Ph one Number [facility] * EXTERNAL PROVIDER RECORDS (04/14/2019 12:01 AM CDT) Only the most recent of 3 results within the time period is included. 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 PACS/VR/DO SE Narrative Performed At EXAM: PACS/VR/DOSE XR HAND 3+ VW BILATERAL HISTORY: pain COMPARISON: None FINDINGS: Imaging of the left and right hand demo nstrates moderate bilateral thumb CMC joint space narrowing, subchondral sclerosis, subcortical cyst formation with osteophytosis. Chronic o steophyte fragmentation is seen at these sites. Findings are more notable on the left. Procedure Note [facility], Radiant Results Inft User - 04/02/2019 12:23 PM CDT EXAM: XR HAND 3+ VW BILATERAL HISTORY: pain COMPARISON: None FINDINGS: Imaging of the left and right hand demonstrates moderate bilateral thumb [facility]MC joint space narrowing, subchondral sclerosis, subcortical cyst formation with osteophytosis. Chronic osteophyte fragmentation is seen at these sites. Findings are more notable on the left. 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 Performing Organization Address City/State/Zipcode Ph one Number PACS/VR/DOSE * PATIENT AGREEMENTS AND CONTRACTS (03/12/2019 12:01 AM CDT) Specimen Performing Organization Address City/State/Zipcode Ph one Number [facility] * AUTHORIZATION FOR RELEASE OF PHI (03/12/2019 12:01 AM CDT) Specimen Performing Organization Address City/State/Zipcode Ph one Number [facility] * PATIENT QUESTIONNAIRE (03/12/2019 12:01 AM CDT) Only the most recent of 2 results within the time period is included. Specimen Performing Organization Address City/State/Zipcode Ph one Number [facility] from Last 3 Months Insurance Type Payer Benefit Subscriber ID Effective Phone Address Plan / Dates Group Medicare Adv HMO [facility] [id number] 2018- MANAGED MEDICARE HEALTHCARE Present DUAL COMPLETE HMO [facility] [employer] [id number] 2018- [address] [employer] H Present [id number] [place] [address] Medicaid [place] xxxxxxxxx 2019-P [phone] [address] [place] [facility] [id number] [place] [address] amily (Home) [place] [address] [facility] 1965 [address] [address] Health ([place]) [place] [address] Advance Directives Patient Date Puller Explanation Type Date Recorded 0 Advance Directives 08/08/2013 8:00 AM and Living Will Power of Workforce Investment Act Career Manager 08/08/2013 8:00 AM
--- OUTSIDE RECORDS SUMMARY | 2019-12-13 15:29 | XMS REPORT | Clinical Summary ---
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 Active methotrexate 2.5 mg Take by mouth [...] localized osteoarthrosis, lower leg, unspecified laterality Active paliperidone 6 mg 24 hour Take 1 tablet 30 tablet 2 tabletIndications: by mouth 9 Schizoaffective disorder, daily. depressive type Active buPROPion XL 150 mg 24 hr Take 1 tablet 30 tablet 2 tabletIndications: by mouth 9 Schizoaffective disorder, daily. depressive type Status Hospital, Clinic, or Ordered Dose Route Frequency Start End Date Other Facility Date Administered Medication Active lactated ringers IV 1000 mL IV Infusion CONTINUOUS infusion 1,000 mL 19 Active Problems Problem Noted Date Essential hypertension 03/19/2019 Carpal tunnel syndrome on right 03/19/2019 Overview: EMG 02/18/2019 Special screening for malignant neoplasms, colon Overview: Added automatically from request for jimmy solorio [id number] Cervical spondylosis with radiculopathy 01/01/2019 Overview: Added automatically from request for jimmy solorio [id number] Mixed hyperlipidemia 08/13/2018 Overview: LDL 140 07/17/2018 Left tennis elbow 06/17/2018 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 Overview: R Avulsion fracture of lateral epicondyle of humerus 0 11/14/2017 Painful patella, unspecified laterality 11/05/2017 S/P revision of total hip 09/18/2017 Colon cancer screening 05/24/2017 Overview: Added automatically from request for jimmy solorio [id number] Hematemesis with nausea 05/24/2017 Overview: Added automatically from request for jimmy solorio [id number] Nausea and vomiting, intractability of vomiting not s pecified, unspecified 05/24/2017 vomiting type Overview: Added automatically from request for jimmy solorio [id number] ANJELICA (obstructive sleep apnea) 05/10/2017 Obesity (BMI 30-39.9) 05/01/2017 Microhematuria 02/14/2017 Complex tear of medial meniscus of right knee as curr ent injury, initial 01/18/2017 encounter Overview: Added automatically from request for jimmy solorio [id number] Elevated MCV 07/25/2016 Overview: 103.4 07/22/2016 Muscle [...] opacitiy on chest xray at [facility] 05/22/2015 Hiatus hernia syndrome 04/09/2015 Overview: EGD [...] lower leg 11/25/2013 Overview: ICD10 Diagnosis Term Sizer Hand Utility Knee crepitus 11/25/2013 Genu valgum, acquired 11/25/2013 Overview: ICD10 Diagnosis Term Sizer Hand Utility Patellofemoral misalignment with pain 11/25/2013 Primary [...] 11/16/2010 Headache 04/08/2010 Overview: ICD10 Diagnosis Term Sizer Hand Utility Nonerosive nonspecific gastritis 04/08/2010 Overview: EGD Dr. Lloyd Glossitis 02/23/2010 Tobacco use disorder 02/23/2010 Menorrhagia 05/19/2009 Vision blurred 05/19/2009 Acute upper respiratory infection 08/14/2008 Overview: ICD10 Diagnosis Term Sizer Hand Utility Acute pharyngitis 08/14/2008 Screening for malignant neoplasm of cervix 9 Overview: ICD10 Diagnosis Term Sizer Hand Utility Breast screening 07/16/2008 Overview: ICD10 Diagnosis Term Sizer Hand Utility Urinary tract infection, site not specified 04/29/20 08 Backache 06/02/2007 Overview: Lower back pain ICD10 Diagnosis Term Sizer Hand Utility Pain in joint 06/02/2007 Overview: ICD10 Diagnosis Term Sizer Hand Utility Cervicalgia 06/02/2007 Myalgia and myositis 06/02/2007 Overview: Bilateral trapezius pain ICD10 Diagnosis Term Sizer Hand Utility Absence of menstruation 04/25/2007 Anemia 03/25/2007 Overview: ICD10 Diagnosis Term Sizer Hand Utility Helicobacter pylori infection 06/11/2006 Overview: ICD10 Diagnosis Term Sizer Hand Utility Acute peptic ulcer 06/11/2006 Overview: ICD10 Diagnosis Term Sizer Hand Utility Abdominal pain 04/25/2006 Overview: ICD10 Diagnosis Term Sizer Hand Utility Ankylosing spondylitis 04/25/2006 Vaginitis and vulvovaginitis 04/25/2006 Overview: ICD10 Diagnosis Term Sizer Hand Utility Other, mixed, or unspecified nondependent drug abuse, continuous 11/30/2005 Resolved Problems Problem Noted Date Resolved Date Arm laceration, right, subsequent encounter 04/13/2014 04/13/2014 Syncope and collapse 02/27/2007 06/28/2014 Bipolar I disorder, most recent episode (or current) unspec ified 01/03/2007 01/23/2018 Overview: Dr. 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 11/30/2005 02/11/2018 Overview: ICD10 Diagnosis Term Sizer Hand Utility Encounters Care Team Description Date Type Specialty Omar Clay DO Other (Dr. Good's note) [...] 03/19/2019 Office Visit Family Medicine Doctor Unassigned, [place] 03/18/2019 Orders Only Daniela Velarde FNP Bilateral carpal tunnel syndrome (Primar y Dx) 03/12/2019 Office Visit Orthopedic Surgery Doctor Unassigned, [place] 03/12/2019 Orders Only Ovidio Clarke Jr., MD Refill Request 03/09/2019 Refill Family Medicine Doctor Unassigned, [place] 03/03/2019 Orders Only Omar Clay DO 3, Jennifer Adult Infusion Nurse Ankylosing spondylitis, unspecified site of spine (Primary Dx) 02/20/2019 Nurse Visit Infusion Therapy Jess Tovar MD Results 02/20/2019 Telephone Neurology Omar Clay DO Refill Request 02/19/2019 Refill Rheumatology Carley Villarreal MD Wu, Laura J, MD 02/18/2019 [facility] Electroneurodiagnos tic Encounter Robert Chandler MD Randle, Darlene, RN 02/17/2019 Anesthesia Surgery Event Ricco Hannah DO COLONOSCOPY 02/17/2019 Surgery Surgery Ricco Hannah, DO Hematemesis with nausea 02/17/2019 Hospital Surgery Encounter Rios Mario FNP Rectal bleeding (Primary Dx) 02/10/2019 Emergency Emergency Medicine Ginny Oneal MD Talk To Nurse 02/10/2019 Telephone Gastroenterology Ginny Oneal MD Assessment 02/10/2019 Telephone Gastroenterology Frida Rose DO Results 02/06/2019 Telephone Obstetrics & Gyneco logy Frida Rose DO 02/05/2019 Hospital Radiology Encounter Homero Ding Jenine N, MD Special screening for malignant neoplasm s, colon (Primary Dx); Hematemesis with nausea 02/03/2019 Office Visit Gastroenterology Doctor Unassigned, [place] 02/03/2019 Orders Only Sbeastian Bunn MD Referral/consult (PT) 01/29/2019 Telephone Orthopedic Surgery Ovidio Clarke Jr., MD Refill Request (Diclofenac 1% gel 100mg) 01/28/2019 Refill Family Medicine Frida Rose DO Vaginal odor (Primary Dx) 01/27/2019 Office Visit Obstetrics & Gyneco logy Neha El FNP Results 01/24/2019 Telephone Urology Magdaleno Richmond MD Assessment 01/24/2019 Telephone Surgery Sherley Ding MD 01/23/2019 Anesthesia Surgery Event Sebastian Doe CERVICAL EPIDURAL STEROID INJECTION 01/23/2019 Surgery Surgery Sebastian Doene Cervical spondylosis with radiculopathy 01/23/2019 Hospital Surgery Encounter Doctor Unassigned, [place] 01/23/2019 Orders Only Neha El, ALVIN Microhematuria (Primary Dx); Foul smelling urine 01/22/2019 Office Visit Urology Jeremiah Chambers, ALVIN Lower abdominal pain (Primary Dx); Flank pain; Hematuria, unspecified type; Chronic pain syndrome; Anger 01/20/2019 Emergency Emergency Medicine Ovidio Clarke Jr., MD Assessment (side pain) 01/20/2019 Telephone Family Medicine Sebastian Bunn MD Physical Therapy (Requesting PT order to be faxed) 01/15/2019 Telephone Orthopedic Surgery Frida Rose DO Assessment 01/13/2019 Telephone Obstetrics & Gyneco logOvidio Rosado Jr., MD Refill Request 01/10/2019 Refill Family Medicine Frida Rose DO Vaginal odor (Primary Dx) 01/07/2019 Office Visit Obstetrics & Gyneco Frida Dominique DO Notification 01/07/2019 Telephone Obstetrics & Gyneco logFrida Rubio DO Erroneous encounter-disregard 01/07/2019 Telephone Maternal Medi cine from Last 3 Months Immunizations Name Administration [...] Signs Reading Time Taken Comments Vital Sign 140/64 04/09/2019 9:19 AM CDT Blood Pressure 91 04/09/2019 9:19 AM CDT Pulse 37.2 C (99 F) 04/02/2019 2:09 PM CDT Temperature 18 04/09/2019 9:19 AM CDT Respiratory Rate 97% 04/02/2019 2:09 PM CDT Oxygen Saturation - - Inhaled Oxygen Concentration 88.9 kg (196 lb) 04/09/2019 9:19 AM CDT Weight 162.6 cm (5' 4") 04/09/2019 9:19 AM CDT Height 33.64 04/09/2019 9:19 AM CDT Body Mass Index Plan of Treatment Care Team Description Date Type Specialty Omar Clay, [address] [place] [address] [phone] 3Jennifer Adult Infusion Nurse 04/17/2019 Nurse Visit Infusion Therapy Sebastian Doe [id number] [place] [address] [phone] 04/30/2019 Office Visit Pain Medicine Ovidio Verma MD [address] [place], [place] [phone] 05/14/2019 Office Visit Orthopedic Surgery Ginny Oneal MD [address] [place] [phone] 06/09/2019 Office Visit Gastroenterology Omar Clay, DO [address] [place] [address] [phone], Jennifer Adult Infusion Nurse 06/12/2019 Nurse Visit [place] [address] [place] [phone] 06/19/2019 Office Visit Family Medicine Omar Clay, DO [address] [place] [address] [phone] 06/25/2019 Office Visit Rheumatology Health Maintenance Due Date Last Done Comments [...] 1-44-28 / 0 / [id number] Bipolar Head, [place] Uhr Bipolar BIPOLAR Right: Hip [place] [id number] #[id number] - S0 head Implanted: Qty: 1 on 09/18/2017 by Sebastian Bunn MD at [facility] 07/07/2021 1023-12 / [id number] / [id number] Cancellous Cubes, Community Tissue BONE Right: [facility] Freeze Dried 30 Cc Tissue #1023-12 - [id number] Services Implanted: Qty: 1 on 09/18/2017 by Sebastian Bunn MD at [facility] 03/08/2018 2018-40 / [id number] / [id number] Dbm Putty Maxxeus 10cc Cts #2018-40 BONE Right: Hip [facility] - [id number] Tissue Implanted: Qty: 1 on 09/18/2017 by Services Sebastian Bunn MD at [facility] 04/07/2022 1365-28-720 / 0 / [id number] Delta Ceramic Femoral Head 28mm +5 Head Right: Hip Depuy 06/21 Taper Depuy Ref#[id number] Synthes Implanted: Qty: 1 on 09/18/2017 by Sebastian Bunn MD at [facility] 03/29/2022 [id number] / 0 / [id number] Insert, [place] Trident 0deg 44mm Liner Right: Hip Donal #[id number] Implanted: Qty: 1 on 09/18/2017 by Sebastian Bunn MD at [facility] 04/24/2022 5260-5-050 / 0 / [id number] Screw Osteolock 3.[address] SCREW Right: Hip [place] Cancellous 50mm [place] Ref#[id number] Implanted: Qty: 2 on 09/18/2017 by Sebastian Bunn MD at [facility] 06/01/2022 5260-5-020 / 0 / [id number] Screw Ostelock 3.[address] SCREW Right: Hip Donal Cancellous 20mm [place] Ref#[id number] Implanted: Qty: 1 on 09/18/2017 by Sebastian Bunn MD at [facility] 06/01/2022 5260-5-016 / 0 / [id number] Screw Osteolock 3.[address] SCREW Right: Hip Donal Cancellous 18mm Donal Ref#[id number] Implanted: Qty: 1 on 09/18/2017 by Sebastian Bunn MD at [facility] 01/02/2022 [id number] / 0 / [id number] Shell, Donal Tritanium Revision Shell Right: Hip [place] Acetabular #[id number] - S0 Implanted: Qty: 1 on 09/18/2017 by Sebastian Bunn MD at [facility] Procedures Comments Procedure Name Priority Date/Time Associated Diag nosis XR HAND 3+ VW BILATERAL Routine 04/02/2019 Pain 10:52 AM CDT EXTERNAL PROVIDER RECORDS Routine 03/18/2019 12:01 AM CDT PATIENT AGREEMENTS AND Routine 03/12/2019 CONTRACTS 12:01 AM CDT AUTHORIZATION FOR RELEASE Routine 03/12/2019 OF PHI 12:01 AM CDT PATIENT QUESTIONNAIRE Routine 03/12/2019 12:01 AM CDT PATIENT QUESTIONNAIRE Routine 03/12/2019 12:01 AM CDT EXTERNAL PROVIDER RECORDS Routine 03/03/2019 12:01 AM CDT EMG/NCV Routine 02/18/2019 12:01 AM CDT SURGICAL PATHOLOGY EXAM STAT 02/17/2019 3:30 PM CDT COLONOSCOPY (ENDO) Routine 02/17/2019 3:25 PM CDT ESOPHAGOGASTRODUODENOSCOP Level 5 02/17/2019 Spec ial screening for Y (greater 3:10 PM CDT malignant neopl asms, than 5 colon days) Hematemesis with nausea Case Notes 02/12/19 - overbook approved by Dr. Hannah COLONOSCOPY Level 5 02/17/2019 Special screeni ng for (greater 3:10 PM CDT malignant neoplasms , than 5 colon days) Hematemesis with nausea Case Notes 02/12/19 - overbook approved by Dr. Camden LEBLANC (ENDO) Routine 02/17/2019 3:08 PM CDT CONSENT/REFUSAL FOR Routine 02/17/2019 DIAGNOSIS AND TREATMENT 12:48 PM CDT ASSIGNMENT OF BENEFITS Routine 02/17/2019 12:47 PM CDT DAY SURGERY - VICTORY Routine 02/17/2019 [place] 12:01 AM CDT CBC WITH DIFFERENTIAL STAT 02/10/2019 Rectal b leeding 12:31 PM CDT BASIC METABOLIC PANEL STAT 02/10/2019 Rectal b leeding (NA, K, CL, CO2, GLUCOSE, 12:31 PM CDT BUN, CREATININE, CA) CBC WITH DIFF Routine 02/10/2019 Rectal bleeding 12:31 PM CDT EMERGENCY SERVICES Routine 02/10/2019 AGREEMENTS AND 12:01 AM CDT AUTHORIZATIONS US PELVIS COMPLETE WITH Routine 02/05/2019 Vagina l odor TRANSVAGINAL 10:20 AM CDT DISCLOSURE AND CONSENT, Routine 02/03/2019 MEDICAL AND SURGICAL 12:01 AM CDT PROCEDURES FL TIME OR Routine 01/23/2019 Cervical spondy losis with (NON-REPORTABLE) 2:02 PM CDT radiculopathy CERVICAL EPIDURAL STEROID Level 5 01/23/2019 Cerv ical spondylosis with INJECTION (greater 1:28 PM CDT radiculopathy than 5 days) CONSENT/REFUSAL FOR Routine 01/23/2019 DIAGNOSIS AND TREATMENT 9:49 AM CDT ASSIGNMENT OF BENEFITS Routine 01/23/2019 9:48 AM CDT DAY SURGERY - VICTORY Routine 01/23/2019 [place] 12:01 AM CDT URINE CULTURE Routine 01/22/2019 Microhematuria 9:33 AM CDT Foul smelling urine [facility] PATIENT FINANCIAL Routine 01/22/2019 POLICY 8:51 AM CDT NO SHOW OR MISSED Routine 01/22/2019 APPOINTMENT POLICY 8:51 AM CDT ACKNOWLEDGEMENT NOTICE OF PRIVACY Routine 01/22/2019 PRACTICES 8:50 AM CDT PATIENT QUESTIONNAIRE Routine 01/22/2019 12:[address] ABDOMEN PELVIS WO STAT 01/20/2019 Flank jesus n CONTRAST 2:45 PM CDT EXTRA TUBE URINE CULTURE STAT 01/20/2019 1:42 PM CDT URINALYSIS STAT 01/20/2019 Lower abdominal pain 1:42 PM CDT CBC WITH DIFFERENTIAL STAT 01/20/2019 Lower ab dominal pain 1:27 PM CDT LIPASE STAT 01/20/2019 Lower abdominal pain 1:27 PM CDT HEPATIC FUNCTION PANEL STAT 01/20/2019 Lower a bdominal pain (54262) (ALB,T.PRO,BILI 1:27 PM CDT T,BU/BC,ALT,AST,ALK PHOS) BASIC METABOLIC PANEL STAT 01/20/2019 Lower ab dominal pain (NA, K, CL, CO2, GLUCOSE, 1:27 PM CDT BUN, CREATININE, CA) CBC WITH DIFF Routine 01/20/2019 Lower abdominal pain 1:27 PM CDT EMERGENCY SERVICES Routine 01/20/2019 AGREEMENTS AND 12:01 AM CDT AUTHORIZATIONS AUTHORIZATION FOR RELEASE Routine 01/15/2019 OF PHI 12:01 AM CDT GALV ONLY - VAGINAL Routine 01/07/2019 Vaginal od or PATHOGENS BY DNA PROBE 2:13 PM CDT from Last 3 Months Results * XR HAND 3+ VW BILATERAL (04/02/2019 [...] Address City/State/Zipcode Ph one Number PACS/VR/DOSE * EXTERNAL PROVIDER RECORDS (03/18/2019 12:01 AM CDT) Only the most recent of 2 results within the time period is included. Specimen Performing Organization Address City/State/Zipcode Ph one Number HIM * PATIENT AGREEMENTS AND CONTRACTS (03/12/2019 12:01 AM CDT) Specimen Performing Organization Address City/State/Zipcode Ph one Number HIM * AUTHORIZATION FOR RELEASE OF PHI (03/12/2019 12:01 AM CDT) Only the most recent of 2 results within the time period is included. Specimen Performing Organization Address City/State/Zipcode Ph one Number HIM * PATIENT QUESTIONNAIRE (03/12/2019 12:01 AM CDT) Only the most recent of 3 results within the time period is included. Specimen Performing Organization Address City/State/Zipcode Ph one Number HIM * EMGNCV (02/18/2019 12:01 AM CDT) Specimen Performing Organization Address City/State/Zipcode Ph one Number EMG * SURGICAL PATHOLOGY EXAM (02/17/2019 3:30 PM CDT) Case Report Surgical Pathology [facility] L ABORATORY SERVICES Case: [id number] Authorizing Provider: Ricco Hannah DO Collected: 02/17/2019 1530 Ordering Location: [facility] Received: 02/17/2019 1706 Center Pathologist: Hannah Nicole MD PHD Specimen: STOMACH, Gastric biopsies Final Diagnosis A. STOMACH, BIOPSY: [facility] LABORATORY Electr onically - GASTRIC MUCOSA WITH SERVICES signed by Corey, ACTIVE CHRONIC GASTRITIS MD Hannah PHD on - H. PYLORI-LIKE ORGANISM 02/19/2019 at 10:55 IDENTIFIED AM - NO INTESTINAL METAPLASIA IDENTIFIED I have personally reviewed all specimens/slides and agree with all statements made by residents, fellows or pathologist assistants whose name(s) may appear on this report. Clinical Special screening for [facility] LABORATORY Information malignant neoplasms, colon SERVICES [Z12.11]Hematemesis with nausea [K92.0] #1 Eval for H. Pylori Gross Specimen A is received in [facility] Description formalin labelled with the SERVICES patient s name, U[facility] number "gastric biopsies and consists of 4 ulloa-pink irregular soft tissue fragments (0.7 x 0.2 x 0.2 cm in aggregate). The specimen is filtered through a biopsy bag and entirely submitted in toto in A1. DEMETRIA Medina (ASCP)cm Embedded Images [facility] LABORATORY SERVICES Specimen Tissue - STOMACH Performing Organization Address City/State/[facility] Ph one Number [facility] LABORATORY SERVICES CLIA: [id number], [address] [place] [address] * COLONOSCOPY (ENDO) (02/17/2019 3:25 PM CDT) Specimen Performing Organization Address [facility] Ph one Number ENDO * EGD (ENDO) (02/17/2019 3:08 PM CDT) Specimen Performing Organization Address [facility] Ph one Number ENDO * CONSENT/REFUSAL FOR DIAGNOSIS AND TREATMENT (02/17/2019 12:48 PM CDT) Only the most recent of 2 results within the time period is included. Specimen Performing Organization Address City/State/Zipcode Ph one Number HIM * ASSIGNMENT OF BENEFITS (02/17/2019 12:47 PM CDT) Only the most recent of 2 results within the time period is included. Specimen Performing Organization Address [facility] Ph one Number HIM * [facility] (02/17/2019 12:01 AM CDT) Specimen Performing Organization Address [facility] Ph one Number HIM * CBC WITH DIFFERENTIAL (02/10/2019 12:31 PM CDT) Only the most recent of 2 results within the time period is included. WBC 9.53 4.30 - 11.10 [facility] LABORATORY 10*3/L [facility] RBC 4.25 3.93 - 5.25 10*6/L [facility] LABO RATORY [facility] HGB 14.5 11.6 - 15.0 g/dL [facility] HCT 43.7 35.7 - 45.2 % [facility] MCV 102.8 (H) 80.6 - 95.5 fL [facility] MCH 34.1 (H) 25.9 - 32.8 pg [facility] MCHC 33.2 31.6 - 35.1 g/dL [facility] RDW-SD 52.2 (H) 39.0 - 49.9 fL [facility]ORAT[facility] RDW-CV 13.7 12.0 - 15.5 % [facility] PLT 309 166 - 358 10*3/L [facility] MPV 10.0 9.5 - 12.9 fL [facility] NRBC/100 WBC 0.0 0.0 - 10.0 /100 WBCs [facility] LABO RATORY [facility] NRBC x10^3 <0.01 10*3/L [facility]ORAT[facility] GRAN MAT (NEUT) 61.2 % [facility] LABORATOR Y % [facility] IMM GRAN % 0.30 % [facility] LYMPH % 28.8 % [facility] MONO % 5.9 % [facility] EOS % 3.4 % [facility] BASO % 0.4 % [facility] GRAN MAT 5.84 1.88 - 7.09 10*3/uL [facility]OR ATORY x10^3(ANC) [facility] IMM GRAN x10^3 0.03 0.00 - 0.06 10*3/uL [facility] LYMPH x10^3 2.74 1.32 - 3.29 10*3/uL [facility] MONO x10^3 0.56 0.33 - 0.92 10*3/uL [facility] EOS x10^3 0.32 0.03 - 0.39 10*3/uL [facility] BASO x10^3 0.04 0.01 - 0.07 10*3/uL [facility] AT[facility] Specimen Blood - ARM, LEFT Performing Organization Address City/State/Zipcode Ph one Number [facility] LABORATORY CLIA: [id number], [address] [place], [place] [address] [facility] * Basic Metabolic Panel (NA, K, CL, CO2, GLUCOSE, BUN, CREATININE, CA) (02/10/2019 12:31 PM CDT) Only the most recent of 2 results within the time period is included. NA 142 135 - 145 mmol/L [facility] K 4.6Comment: Slight hemolysis 3.5 - 5.0 mmol/L [facility] LABORATORY [facility] CL 106 98 - 108 mmol/L [facility] LABORATOR Y [facility] CO2 TOTAL 28 23 - 31 mmol/L [facility] LABORATORY [facility] AGAP 8 2 - 16 [facility] LABORATORY [facility] BUN 8Comment: Slight hemolysis 7 - 23 mg/dL [facility] B LABORATORY [facility] GLUCOSE 99 70 - 110 mg/dL [facility] LABORATORY [facility] CREATININE 0.57 0.50 - 1.04 mg/dL [facility] CALCIUM 9.9 8.6 - 10.6 mg/dL [facility] eGFR 110.5 mL/min/1.73m2 [facility] Calculation [facility] (Non-[facility] Spanish) eGFR 134.0 mL/min/1.73m2 [facility]OR[facility] Calculation [facility] ([facility] Spanish) Specimen Blood - ARM, LEFT Narrative Performed At Association of Glomerular Filtration Rate (GFR) and S taging of Kidney Disease* [facility] LABOR[facility] + + +------ + [facility] | GFR (mL/min/1.73 m2) | With Kidney Damage | [facility] Kid[facility] Damage NIANTIC + + -------+ + | >90 | [...] abnormalities in imaging tests). Performing Organization Address City/[facility] [place] [facility] Ph one Number [facility] LABOR[facility]ORY CLIA: [id number], [address] [place], [place] [address] [facility] * EMERGENCY SERVICES AGREEMENTS AND AUTHORIZATIONS (02/10/2019 12:01 AM CDT) Only the most recent of 2 results within the time period is included. Specimen Performing Organization Address [facility] one Number HIM * US PELVIS COMPLETE WITH TRANSVAGINAL (02/05/2019 10:20 AM CDT) Specimen Impressions Performed At 1. The uterus is surgically absent. PACS/VR/DOSE 2. The ovaries are within normal limi ts. I, Ksenia Lorenzo MD., have reviewed this study and agree with the above report. Narrative Performed At TRANSABDOMINAL AND TRANSVAGINAL PELVIC ULTRASOUND PA CS/VR/DOSE HISTORY: 53-year-old female with left p elvic pain TECHNIQUE: Survey transabdominal and tr ansvaginal ultrasound imaging of the pelvis was performed including color Do ppler evaluation with termite control representative images obtained. Spectral Doppler evalu ation of both ovaries was also performed. COMPARISON: Ultrasound pelvic 09/16/19 06. FINDINGS: The uterus is surgically absent. Both ovaries are normal in size and ech otexture. The right ovary measures 1.6 cc and the left ovary measures 0.6 cc. Spectral Doppler reveals normal arterial and venous flow in both ovarie s. The urinary bladder is unremarkable. No fluid is present in the cul-de-sac. Procedure Note [facility], Radiant Results Inft User - 02/05/2019 11:49 AM CDT TRANSABDOMINAL AND TRANSVAGINAL PELVIC ULTRASOUND HISTORY: 53-year-old female with left pelvic pain TECHNIQUE: Survey transabdominal and transvaginal ultrasound imaging of the pelvis was performed including color Doppler evaluation with termite control representative images obtained. Spectral Doppler evaluation of [...] Address City/State/Zipcode Ph one Number PACS/VR/DOSE * DISCLOSURE AND CONSENT, MEDICAL AND SURGICAL PROCEDURES (02/03/2019 12:01 AM CDT) Specimen Performing Organization Address City/State/Zipcode Ph one Number HIM * [place] TIME OR (NON-REPORTABLE) (01/23/2019 2:02 PM CDT) Specimen Narrative Performed At These images do not require a Radiology diagnostic re port. PACS Performing Organization Address City/State/Zipcode Ph one Number PACS * DAY SURGERY - [facility] (01/23/2019 12:01 AM CDT) Specimen Performing Organization Address City/State/Zipcode Ph one Number HIM * URINE CULTURE (01/22/2019 9:33 AM CDT) URINE CULTURE No aerobic growth (< 1000 [facility] T[facility] CFU/mL) SERVICES Specimen Urine - URINE, CLEAN CATCH Performing Organization Address City/State/Zipcode Ph one Number [facility] CLIA: [id number], [address] [place] [address] [facility] * [facility] PATIENT FINANCIAL POLICY (01/22/2019 8:51 AM CDT) Specimen Performing Organization Address City/State/Zipcode Ph one Number HIM * NO SHOW OR MISSED APPOINTMENT POLICY ACKNOWLEDGEMENT (01/22/2019 8:51 AM CDT) Specimen Performing Organization Address City/State/Zipcode Ph one Number HIM * NOTICE OF PRIVACY PRACTICES (01/22/2019 8:50 AM CDT) Specimen Performing Organization Address City/State/Zipcode Ph one Number HIM * CT ABDOMEN PELVIS WO CONTRAST (01/20/2019 2:45 PM CDT) Specimen Impressions Performed At 1. No evidence of nephrolithiasis or hydronephrosis . PACS/VR/DOSE 2. Bone findings suggest ankylosing s pondylitis. Narrative Performed At * * * * * * * * ORIGINAL REPORT * * * * * * * * PACS /VR/DOSE EXAM: CT ABDOMEN AND PELVIS WITHOUT CON TRAST HISTORY: 53-year-old female with flank pain COMPARISON: May 17, 2017 DOSE: Total exam DLP 999 mGy-cm TECHNIQUE AND FINDINGS: Contiguous axia l imaging from the level of the lung bases through the pubic symphysis was p erformed without contrast. Coronal and sagittal reconstructions were obtai sourav. FINDINGS: LOWER THORAX: Bibasilar linear atelecta sis is seen with no evidence of pleural or pericardial effusion. LIVER: No focal hepatic lesions. Norm al contour. GALLBLADDER AND BILIARY TREE: No biliar y ductal dilation. No gallbladder wall thickening. SPLEEN: No splenomegaly. PANCREAS: No ductal dilation or masses. ADRENAL GLANDS: No adrenal nodules. KIDNEYS: No hydronephrosis, stones, or masses. PERITONEUM AND RETROPERITONEUM: Minimal free fluid is suspected. LYMPH NODES: No lymphadenopathy. GI TRACT: No dilation or wall thickenin g. A duodenal diverticulum is seen (3:48 and 201:69). No definite appendic itis or diverticulitis. PELVIS/BLADDER: The urinary bladder is unremarkable. The uterus is not visualized. VESSELS: Unremarkable. BONES AND SOFT TISSUES: No suspicious l ytic or sclerotic bony lesions. Artifacts are seen from right hip prost hesis. Appearance of the spine suggests ankylosing spondylitis. The sa croiliac joints are ankylosed. Procedure Note [facility], Radiant Results Inft User - 01/20/2019 3:10 PM CDT * * * * * * * * ORIGINAL REPORT * * * * * * * * EXAM: CT ABDOMEN AND PELVIS WITHOUT CONTRAST HISTORY: 53-year-old female with flank pain COMPARISON: May 17, 2017 DOSE: Total exam DLP 999 mGy-cm TECHNIQUE AND FINDINGS: Contiguous axial imaging from the level of the lung bases through the pubic symphysis was performed without contrast. Coronal and sagittal reconstructions were obtained. FINDINGS: LOWER THORAX: Bibasilar linear atelectasis is seen with no evidence of pleural or pericardial effusion. LIVER: No focal hepatic lesions. Normal contour. GALLBLADDER AND BILIARY TREE: No biliary ductal dilation. No gallbladder wall thickening. SPLEEN: No splenomegaly. PANCREAS: No ductal dilation or masses. ADRENAL GLANDS: No adrenal nodules. KIDNEYS: No hydronephrosis, stones, or masses. PERITONEUM AND RETROPERITONEUM: Minimal free fluid is suspected. LYMPH NODES: No lymphadenopathy. GI TRACT: No dilation or wall thickening. A duodenal diverticulum is seen (3:48 and 201:69). No definite appendici tis or diverticulitis. PELVIS/BLADDER: The urinary bladder is unremarkable. The uterus is not visualized. VESSELS: Unremarkable. BONES AND SOFT TISSUES: No suspicious lytic or sclerotic bony lesions. Artifacts are seen from right hip prosthesis. Appearance of the spine suggests ankylosing spondylitis. The sacroiliac joints are ankylosed. IMPRESSION 1. No evidence of nephrolithiasis or hy dronephrosis. 2. Bone findings suggest ankylosing spo ndylitis. Performing Organization Address City/[facility] Ph one Number PACS/VR/DOSE * EXTRA TUBE URINE CULTURE (01/20/2019 1:42 PM CDT) Specimen Urine - URINE, CLEAN CATCH Performing Organization Address [facility] Ph one Number [facility] CLIA: [id number], [address] [place], [place] [address] [facility] * Urinalysis (01/20/2019 1:42 PM CDT) APPEARANCE Clear Clear [facility] COLOR Yellow Yellow [facility] PH 6.0 4.8 - 8.0 [facility] SP GRAVITY 1.011 1.003 - 1.030 [facility] GLU U QUAL Normal Normal [facility] BLOOD 2+ (A) Negative [facility] KETONES Negative Negative [facility] PROTEIN Negative Negative [facility] UROBILIN Normal Normal [facility] BILIRUBIN Negative Negative [facility] NITRITE Negative Negative [facility] LEUK TRAVIS 25/uL (A) Negative [facility] RBC/HPF 15 (H) 0 - 3 HPF [facility] WBC/HPF 5 0 - 5 HPF [facility] BACTERIA Negative Negative [facility] SQ EPITH 6 (H) <=2 HPF [facility] Specimen Urine - URINE, CLEAN CATCH Performing Organization Address [facility] one Number [facility] CLIA: [id number], [address] [place] [address] 98 [facility] * Hepatic Function Panel (ALB, T.PRO, BILI T, BU/BC, ALT, AST, ALK PHOS) (01/20/2019 1:27 PM CDT) TOTAL BILI 0.3 0.1 - 1.1 mg/dL [facility] BILI UNCON 0.2 0.1 - 1.1 mg/dL [facility] BILI CONJ 0.0 0.0 - 0.3 mg/dL [facility] T PROTEIN 8.0 6.3 - 8.2 g/dL [facility] ALBUMIN 4.4 3.5 - 5.0 g/dL [facility] ALK PHOS 99 34 - 122 U/L [facility] ALT(SGPT) 16 9 - 51 U/L [facility] AST(SGOT) 19 13 - 40 U/L [facility] Specimen Blood - ARM, RIGHT Performing Organization Address [facility] one Number [facility] CLIA: [id number], [address] [address] [facility] * Lipase Serum (01/20/2019 1:27 PM CDT) LIPASE 57 0 - 220 U/L [facility] Specimen Blood - ARM, RIGHT Performing Organization Address [facility] one Number [facility] CLIA: [id number], [address] [address] [facility] * GALV ONLY - VAGINAL PATHOGENS BY DNA PROBE (01/07/2019 2:13 PM CDT) Trichomonas Negative Negative [facility] vaginalis SERVICES Gardnerella Positive (A) Negative [facility] vaginalis SERVICES Sheryl species Positive (A) Negative [facility] Specimen Fluid - VAGINA Performing Organization Address City/State/Zipcode Ph one Number [facility] CLIA: [id number], [address] [place] [address] [facility] from Last 3 Months Insurance Type Payer Benefit Subscriber ID Effective Phone Address Plan / Dates Group Medicare Adv HMO [facility] [id number] 2018- MANAGED MEDICARE HEALTHCARE Present DUAL COMPLETE HMO [facility] [id number] 2018- [address] [employer] H Present [address] [place] [address] Medicaid [employer] MEDICAID xxxxxxxxx 2019-P [phone] [address] [place] 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
--- OUTSIDE RECORDS SUMMARY | 2019-12-13 15:29 | XMS REPORT | Summary of Care ---
Author Author [facility] - [facility] Organization [facility] - [facility] Address Unknown Phone Unavailable Care Team Providers Care Television News Producer Name Role Phone Ovidio Clarke MD PCP Reason for Visit * Reason Comments Neck Pain Back Pain Encounter Details Care Team Description Date [place] [address] [place] [address] Ankylosing spondylitis, unspecified site of [...] and vulvovaginitis; Essential hypertension 03/19/2019 [facility] [address] [place] [phone] Allergies Comments Active Allergy Reactions Severity Noted [...] Added automatically from request for jimmy cantormandy [id number] Cervical spondylosis with radiculopathy 01/01/2019 Overview: Added automatically from request for jimmy cantormandy [id number] Mixed hyperlipidemia 08/13/2018 Overview: LDL 140 07/17/2018 Left tennis elbow 06/17/2018 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 Overview: R Avulsion fracture of lateral epicondyle of humerus 0 11/14/2017 Painful patella, unspecified laterality 11/05/2017 S/P revision of total hip 09/18/2017 Colon cancer screening 05/24/2017 Overview: Added automatically from request for marquez devaughnmandy [id number] Hematemesis with nausea 05/24/2017 Overview: Added automatically from request for jimmy solorio [id number] Nausea and vomiting, intractability of vomiting not s pecified, unspecified 05/24/2017 vomiting type Overview: Added automatically from request for jimmy solorio [id number] ANJELICA (obstructive sleep apnea) 05/10/2017 Obesity (BMI 30-39.9) 05/01/2017 Microhematuria 02/14/2017 Complex tear of medial meniscus of right knee as curr ent injury, initial 01/18/2017 encounter Overview: Added automatically from request for jimmy solorio [id number] Elevated MCV 07/25/2016 Overview: 103.4 07/22/2016 Muscle [...] lobe nodular opacitiy on chest xray at [facility] 05/22/2015 Hiatus hernia syndrome 04/09/2015 Overview: EGD 03/23/2015 [facility] screening mammogram 01/06/2015 Immunization deficiency [...] lower leg 11/25/2013 Overview: ICD10 Diagnosis Term Equipment Validation Engineer Utility Knee crepitus 11/25/2013 Genu valgum, acquired 11/25/2013 Overview: ICD10 Diagnosis Term Equipment Validation Engineer Utility Patellofemoral misalignment with pain 11/25/2013 Primary [...] 11/16/2010 Headache 04/08/2010 Overview: ICD10 Diagnosis Term Equipment Validation Engineer Utility Nonerosive nonspecific gastritis 04/08/2010 Overview: EGD Dr. Lloyd Glossitis 02/23/2010 Tobacco use disorder 02/23/2010 Menorrhagia 05/19/2009 Vision blurred 05/19/2009 Acute upper respiratory infection 08/14/2008 Overview: ICD10 Diagnosis Term Equipment Validation Engineer Utility Acute pharyngitis 08/14/2008 Screening for malignant neoplasm of cervix 9 Overview: ICD10 Diagnosis Term Equipment Validation Engineer Utility Breast screening 07/16/2008 Overview: ICD10 Diagnosis Term Equipment Validation Engineer Utility Urinary tract infection, site not specified 04/29/20 08 Backache 06/02/2007 Overview: Lower back pain ICD10 Diagnosis Term Equipment Validation Engineer Utility Pain in joint 06/02/2007 Overview: ICD10 Diagnosis Term Equipment Validation Engineer Utility Cervicalgia 06/02/2007 Myalgia and myositis 06/02/2007 Overview: Bilateral trapezius pain ICD10 Diagnosis Term Equipment Validation Engineer Utility Absence of menstruation 04/25/2007 Anemia 03/25/2007 Overview: ICD10 Diagnosis Term Equipment Validation Engineer Utility Helicobacter pylori infection 06/11/2006 Overview: ICD10 Diagnosis Term Equipment Validation Engineer Utility Acute peptic ulcer 06/11/2006 Overview: ICD10 Diagnosis Term Equipment Validation Engineer Utility Abdominal pain 04/25/2006 Overview: ICD10 Diagnosis Term Equipment Validation Engineer Utility Ankylosing spondylitis 04/25/2006 Vaginitis and vulvovaginitis 04/25/2006 Overview: ICD10 Diagnosis Term Equipment Validation Engineer Utility Other, mixed, or unspecified nondependent drug [...] eatures 11/30/2005 02/11/2018 Overview: ICD10 Diagnosis Term Equipment Validation Engineer Utility documented as of this encounter (statuses [...] takes Gabapentin 600 mg TID an d [place] 10 mg daily. She also uses Diclofenac Sodium 1 % gel. Her pain is a 4-5/ 10 with medication. She is requesting refills for [place]. Tobacco Abuse: Pt is a tobacco user [...] DISSOLVE ONE TAB IN MOUTH EVERY 8 MAKCENZIE RS NEEDED FOR NAUSEA FOR UP TO [...] 02/11/2012 Hiatus hernia syndrome 04/09/2015 EGD 03/23/2015 [facility] Immunization deficiency 10/09/2014 She is [...] Right 01/06/2014 Surgeon: Girish Fountain MD; Location: [facility] OR LOCATION ARTHROSCOPIC MENISCAL REPAIR Right 01/06/2014 Surgeon: Girish Fountain MD; Location: [facility] OR LOCATION CERVICAL EPIDURAL STEROID INJECTION 03/26/2012 Surgeon: Maged Franklin MD PHD; Location: [facility] OR LOCATION CERVICAL EPIDURAL STEROID INJECTION N/A 01/23/2019 Surgeon: Sebastian Doe; Location: [place] OR Location COLONOSCOPY N/A 06/22/2015 Surgeon: Arian To MD; [facility] COLONOSCOPY N/A 02/17/2019 Surgeon: Ricco Hannah DO; Location: [place] OR Location EGD (ENDO) 03/23/2015 Rocio carver [place] ESOPHAGOGASTRODUODENOSCOPY 04/13 ulcers ESOPHAGOGASTRODUODENOSCOPY 06/15 ESOPHAGOGASTRODUODENOSCOPY 10/07/2009 mild nonerosive gastritis ESOPHAGOGASTRODUODENOSCOPY N/A 06/22/2015 Surgeon: Arian To MD; [facility] ESOPHAGOGASTRODUODENOSCOPY N/A 02/17/2019 Surgeon: Ricco Hannah DO; Location: [place] OR Location FLEXIBLE BRONCHOSCOPY 05/24/2015 Magui Hogan [employer] HIP HEMIARTHROPLASTY 2001 Right KNEE ARTHROSCOPY Right 01/06/2014 Surgeon: Girish Fountain MD; Location: [facility] OR LOCATION UT ARTHRS KNE SURG W/MENISCECTOMY MED/LAT W/SHVG 01/06/2014 UT KNEE SCOPE,REMV LOOSE BODY 01/06/2014 TOTAL HIP ARTHROPLASTY REVISION Right 09/18/2017 Surgeon: Sebastian Bunn MD; Location: [facility] OR Location TUBAL LIGATION 1988 Family History [...] file Gets together: Not on file Attends faith service: Not on file Active member of [...] Description Date Type Specialty Ginny Oneal MD [address] [place] [address] [phone] 03/24/2019 Office Visit Gastroenterology Ovidio Verma MD [address] [place] [address] [phone] 04/02/2019 Office Visit Orthopedic Surgery Omar Clay, DO [address] [place] [address] [phone] 3, Jennifer Adult Infusion Nurse 04/17/2019 Nurse Visit Infusion Therapy Sebastian Doe [address] [place] [address] [id number] [place], [place] [id number] 04/30/2019 Office Visit Pain Medicine Ginny Oneal MD [address] [place] [address]. [place] [address] 06/09/2019 Office Visit Gastroenterology Boogie Claymond Dominic, DO [address] [place] [address] [phone] 3, Jennifer Adult Infusion Nurse 06/12/2019 Nurse Visit [place] [address] [place] [address] 06/19/2019 Office Visit Family Medicine [...] 1-44-28 / 0 / [id number] Bipolar Head, [place] Uhr Bipolar BIPOLAR Right: Hip Donal 09q05xu #Uh1-44-28 - S0 head Implanted: Qty: 1 on 09/18/2017 by Sebastian Bunn MD at [facility] 07/07/2021 1023-12 / [id number] / [id number] Cancellous Cubes, [facility] Tissue BONE Right: Hip [facility] Services Freeze Dried 30 Cc Tissue #1023-12 - [id number] Services Implanted: Qty: 1 on 09/18/2017 by Sebastian Bunn MD at [facility] 03/08/2018 2018-40 / [id number] / [id number] Dbm Putty Maxxeus 10cc Cts #2018-40 BONE Right: Hip [facility] - [id number] Tissue Implanted: Qty: 1 on 09/18/2017 by Services Sebastian Bunn MD at [facility] 04/07/2022 1365-28-720 / 0 / [id number] Delta Ceramic Femoral Head 28mm +5 Head Right: Hip Depuy 12/14 Taper Depuy Ref#[id number] Synthes Implanted: Qty: 1 on 09/18/2017 by Sebastian Bunn MD at [facility] 03/29/2022 623-00-44F / 0 / [id number] Insert, [place] Trident 0deg 44mm Liner Right: Hip Donal #[id number] Implanted: Qty: 1 on 09/18/2017 by Sebastian Bunn MD at [facility] 04/24/2022 5260-5-050 / 0 / [id number] Screw Osteolock 3.[address] SCREW Right: Hip Donal Cancellous 50mm Donal Ref#[id number] Implanted: Qty: 2 on 09/18/2017 by Sebastian Bunn MD at [facility] 06/01/2022 5260-5-020 / 0 / [id number] Screw Ostelock 3.[address] SCREW Right: Hip [place] Cancellous 20mm Donal Ref#[id number] Implanted: Qty: 1 on 09/18/2017 by Sebastian Bunn MD at [facility] 06/01/2022 5260-5-016 / 0 / [id number] Screw Osteolock 3.[address] SCREW Right: Hip [place] Cancellous 18mm [place] Ref#[id number] Implanted: Qty: 1 on 09/18/2017 by Sebastian Bunn MD at [facility] 01/02/2022 509-02-60F / 0 / [id number] Shell, [place] Tritanium Revision Shell Right: Hip [place] Acetabular #[id number] - S0 Implanted: Qty: 1 on 09/18/2017 by Sebastian Bunn MD at [facility] documented as of this encounter Results [...] Address Plan / Dates Group Medicare Adv [facility] [id number] 2018- MANAGED MEDICARE HEALTHCARE Present DUAL COMPLETE O Medicaid [facility] MEDICAID xxxxxxxxx 2019-P [phone] P O [facility] resent [id number] [place] [address] documented as of this encounter Advance Directives 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
--- OUTSIDE RECORDS SUMMARY | 2019-12-13 15:29 | XMS REPORT | Clinical Summary ---
Author Author [facility] - Health Organization [facility] - Health Address Unknown Phone Unavailable Care Team Providers Care Sawmill Manager Name Role Phone Ovidio Clarke MD [...] Added automatically from request for jimmy solorio [id number] Cervical spondylosis with radiculopathy 01/01/2019 Overview: Added automatically from request for jimmy solorio [id number] Mixed hyperlipidemia 08/13/2018 Overview: LDL 140 07/17/2018 Left tennis elbow 06/17/2018 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 Overview: R Avulsion fracture of lateral epicondyle of humerus 0 11/14/2017 Painful patella, unspecified laterality 11/05/2017 S/P revision of total hip 09/18/2017 Colon cancer screening 05/24/2017 Overview: Added automatically from request for jimmy solorio [id number] Hematemesis with nausea 05/24/2017 Overview: Added automatically from request for jimmy solorio [id number] Nausea and vomiting, intractability of vomiting not s pecified, unspecified 05/24/2017 vomiting type Overview: Added automatically from request for jimmy solorio [id number] ANJELICA (obstructive sleep apnea) 05/10/2017 Obesity (BMI 30-39.9) 05/01/2017 Microhematuria 02/14/2017 Complex tear of medial meniscus of right knee as curr ent injury, initial 01/18/2017 encounter Overview: Added automatically from request for jimmy solorio [id number] Elevated MCV 07/25/2016 Overview: 103.4 07/22/2016 Muscle [...] Hiatus hernia syndrome 04/09/2015 Overview: EGD 03/23/2015 [facility] screening mammogram 01/06/2015 Immunization deficiency 10/09/2014 [...] lower leg 11/25/2013 Overview: ICD10 Diagnosis Term Anchorman Utility Knee crepitus 11/25/2013 Genu valgum, acquired 11/25/2013 Overview: ICD10 Diagnosis Term Anchorman Utility Patellofemoral misalignment with pain 11/25/2013 Primary [...] 11/16/2010 Headache 04/08/2010 Overview: ICD10 Diagnosis Term Anchorman Utility Nonerosive nonspecific gastritis 04/08/2010 Overview: EGD Dr. Lloyd Glossitis 02/23/2010 Tobacco use disorder 02/23/2010 Menorrhagia 05/19/2009 Vision blurred 05/19/2009 Acute upper respiratory infection 08/14/2008 Overview: ICD10 Diagnosis Term Anchorman Utility Acute pharyngitis 08/14/2008 Screening for malignant neoplasm of cervix Overview: ICD10 Diagnosis Term An[employer]orman Utility Breast screening 07/16/2008 Overview: ICD10 Diagnosis Term An[employer]orman Utility Urinary tract infection, site not specified 04/29/20 08 Backache 06/02/2007 Overview: Lower back pain ICD10 Diagnosis Term Anchorman Utility Pain in joint 06/02/2007 Overview: ICD10 Diagnosis Term Anchorman Utility Cervicalgia 06/02/2007 Myalgia and myositis 06/02/2007 Overview: Bilateral trapezius pain ICD10 Diagnosis Term An[employer]orman Utility Absence of menstruation 04/25/2007 Anemia 03/25/2007 Overview: ICD10 Diagnosis Term An[employer]orman Utility Helicobacter pylori infection 06/11/2006 Overview: ICD10 Diagnosis Term An[employer]orman Utility Acute peptic ulcer 06/11/2006 Overview: ICD10 Diagnosis Term Anchorman Utility Abdominal pain 04/25/2006 Overview: ICD10 Diagnosis Term An[employer]orman Utility Ankylosing spondylitis 04/25/2006 Vaginitis and vulvovaginitis 04/25/2006 Overview: ICD10 Diagnosis Term An[employer]orman Utility Other, mixed, or unspecified nondependent drug abuse, continuous 11/30/2005 Resolved Problems Problem Noted Date Resolved Date Arm laceration, right, subsequent encounter 04/13/2014 04/13/2014 Syncope and collapse 02/27/2007 06/28/2014 Bipolar I disorder, most recent episode (or current) unspec ified 01/03/2007 01/23/2018 Overview: Dr. 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 11/30/2005 02/11/2018 Overview: ICD10 Diagnosis Term Anchorman Utility Encounters Care Team Description Date Type [...] Request 04/14/2019 Refill Family Medicine Doctor Unassigned, [place] 04/11/2019 Orders Only Omar Clay DO Notification [...] 03/19/2019 Office Visit Family Medicine Doctor Unassigned, [place] 03/18/2019 Orders Only Daneila Velarde FNP Bilateral carpal tunnel syndrome (Primar y Dx) 03/12/2019 Office Visit Orthopedic Surgery Doctor Unassigned, [place] 03/12/2019 Orders Only from Last 3 Months [...] Comments Vital Sign 146/69 06/11/2019 9:04 AM HAND SPRAYER Blood Pressure 88 06/11/2019 9:04 AM HAND SPRAYER Pulse 36.1 C (97 F) 06/03/2019 3:22 PM HAND SPRAYER Temperature 18 06/11/2019 9:04 AM HAND SPRAYER Respiratory Rate 98% 04/17/2019 3:36 PM CDT Oxygen Saturation - - Inhaled Oxygen Concentration 89.8 kg (198 lb) 06/11/2019 9:04 AM HAND SPRAYER Weight 165.1 cm (5' 5") 06/11/2019 9:04 AM HAND SPRAYER Height 32.95 06/11/2019 9:04 AM HAND SPRAYER Body Mass Index Plan of Treatment Care Team Description Date Type Specialty Omar Clay, DO [address] [place] [id number] [phone], Jennifer Adult Infusion Nurse 06/12/2019 Nurse Visit Infusion Therapy Zia Resendez MD [id number] [place], [place] [address] 06/18/2019 Hospital Surgery Encounter Zia Resendez MD [id number] [place], [place] [id number] OPEN CARPAL TUNNEL RELEASE 06/18/2019 [place] [address] [place] [phone] 06/19/2019 Office Visit Family Medicine Omar Clay, DO [address] [place] [address] [phone] 06/25/2019 Office Visit Rheumatology Sebastian Doe MD [id number] [place] [address] [phone] 07/29/2019 Office Visit Pain Medicine Health Maintenance [...] Donal Uhr Bipolar BIPOLAR Right: Hip Donal [id number] - S0 head Implanted: Qty: 1 on 09/18/2017 by Sebastian Bnun MD at [facility] 07/07/2021 1023-12 / [id number] / [id number] Cancellous Cubes, Community Tissue BONE Right: Hip [facility] Services Freeze Dried 30 Cc Tissue #1023-12 - [id number] Services Implanted: Qty: 1 on 09/18/2017 by Sebastian Bunn MD at [facility] 03/08/20182017-40 / [id number] / [id number] Dbm Putty Maxxeus 10cc Cts # BONE Right: Hip Community - [id number] Tissue Implanted: Qty: 1 on 09/18/2017 by Services Sebastian Bunn MD at [facility] 04/07/2022 [id number] / 0 / [id number] Delta Ceramic Femoral Head 28mm +5 Head Right: Hip Depuy 06/21 Taper Depuy Ref#[id number] Synthes Implanted: Qty: 1 on 09/18/2017 by Sebastian Bunn MD at [facility] 03/29/2022 [id number] / 0 / [id number] Insert, Patterson Trident 0deg 44mm Liner Right: Hip Donal #[id number] Implanted: Qty: 1 on 09/18/2017 by Sebastian Bunn MD at [facility] 04/24/2022 5260-5-050 / 0 / [id number] Screw Osteolock 3.[address] SCREW Right: Hip Donal Cancellous 50mm Donal Ref#[id number] Implanted: Qty: 2 on 09/18/2017 by Sebastian Bunn MD at [facility] 06/01/2022 5260-5-020 / 0 / [id number] Screw Ostelock 3.[address] SCREW Right: Hip Patterson Cancellous 20mm Patterson Ref#[id number] Implanted: Qty: 1 on 09/18/2017 by Sebastian Bunn MD at [facility] 06/01/2022 5260-5-016 / 0 / [id number] Screw Osteolock 3.[address] SCREW Right: Hip Patterson Cancellous 18mm Donal Ref#[id number] Implanted: Qty: 1 on 09/18/2017 by Sebastian Bunn MD at [facility] 01/02/2022 [id number] / 0 / [id number] Shell, Donal Tritanium Revision Shell Right: Hip Patterson Acetabular #[id number] - [id number] Implanted: Qty: 1 on 09/18/2017 by Sebastian Bunn MD at [facility] Procedures Comments Procedure Name Priority Date/Time Associated Diag nosis MR CERVICAL SPINE WO Routine 05/23/2019 Cervical radiculopathy CONTRAST 2:36 PM HAND SPRAYER XR ABDOMEN ACUTE SERIES STAT 04/17/2019 Epigas tric pain 2:33 PM CDT CBC WITH DIFFERENTIAL STAT 04/17/2019 Epigastr ic pain 2:03 PM CDT TROPONIN I STAT 04/17/2019 Epigastric pain 2:03 PM CDT LIPASE STAT 04/17/2019 Epigastric pain 2:03 PM CDT HEPATIC FUNCTION PANEL STAT 04/17/2019 Epigast eunice pain (06985) (ALB,T.PRO,BILI 2:03 PM CDT T,BU/BC,ALT,AST,ALK PHOS) BASIC [...] CERVICAL SPINE WO CONTRAST (05/23/2019 2:36 PM HAND SPRAYER) Specimen Impressions Performed At Impression: PACS/VR/DOSE Multilevel [...] Results Inft User - 05/23/2019 8:53 PM HAND SPRAYER Exam: MR CERVICAL SPINE WO CONTRAST Clinical [...] bony abnormalities are noted. Scattered pelvic phleboliths. [place] are seen in the left neck region, [...] 9.29 4.30 - 11.10 [facility] 10*3/L [facility] RBC 4.10 3.93 - 5.25 10*6/L [facility] HGB 13.9 11.6 - 15.0 g/dL [facility] HCT 41.3 35.7 - 45.2 % [facility] MCV 100.7 (H) 80.6 - 95.5 fL [facility] MCH 33.9 (H) 25.9 - 32.8 pg [facility] MCHC 33.7 31.6 - 35.1 g/dL [facility] RDW-SD 49.2 39.0 - 49.9 fL [facility] RDW-CV 13.3 12.0 - 15.5 % [facility] PLT 318 166 - 358 10*3/L [facility] MPV 10.1 9.5 - 12.9 fL [facility] NRBC/100 WBC 0.0 0.0 - 10.0 /100 WBCs [facility] NRBC x10^3 <0.01 10*3/L [facility] GRAN MAT (NEUT) 58.5 % [facility] Y % [facility] IMM GRAN % 0.20 % [facility] LYMPH % 32.3 % [facility] MONO % 7.4 % [facility] EOS % 1.4 % [facility] BASO % 0.2 % [facility] GRAN MAT 5.43 1.88 - 7.09 10*3/uL [facility] x10^3(ANC) [facility] IMM GRAN x10^3 <0.03 0.00 - 0.06 10*3/uL [facility] LYMPH x10^3 3.00 1.32 - 3.29 10*3/uL [facility] MONO x10^3 0.69 0.33 - 0.92 10*3/uL [facility] EOS x10^3 0.13 0.03 - 0.39 10*3/uL [facility] BASO x10^3 <0.03 0.01 - 0.07 10*3/uL [facility] Specimen Blood - ARM, LEFT Performing Organization Address City/State/Zipcode Ph one Number [facility] CLIA: [id number], [address] [place], [place] [address] [facility] * Basic Metabolic Panel (NA, K, CL, CO2, GLUCOSE, BUN, CREATININE, CA) (04/17/2019 2:03 PM CDT) NA 137 135 - 145 mmol/L [facility] K 4.1 3.5 - 5.0 mmol/L [facility] RY [facility] CL 104 98 - 108 mmol/L [facility] LABORATOR Y [facility] CO2 TOTAL 24 23 - 31 mmol/L [facility] AGAP 9 2 - 16 [facility] BUN 12 7 - 23 mg/dL [facility] GLUCOSE 92 70 - 110 mg/dL [facility] CREATININE 0.61 0.50 - 1.04 mg/dL [facility] OR [facility] CALCIUM 9.5 8.6 - 10.6 mg/dL [facility] eGFR 102.2 mL/min/1.73m2 [facility] Calculation [facility] ([facility] [place]) eGFR 123.9 mL/min/1.73m2 [facility] Calculation [facility] ([facility]) Specimen Blood - ARM, LEFT Narrative Performed At Association of Glomerular Filtration Rate (GFR) and S taging of Kidney Disease* [facility] + + +------ + [facility] | GFR (mL/min/1.73 m2) | [...] abnormalities in imaging tests). Performing Organization Address [facility] one Number [facility] CLIA: [id number], [facility] [place], [place] [address] [facility] * Hepatic Function Panel (ALB, T.PRO, BILI T, BU/BC, ALT, AST, ALK PHOS) (04/17/2019 2:03 PM CDT) [facility] TOTAL BILI 0.3 0.1 - 1.1 mg/dL [facility] LABORATOR Y [facility] BILI UNCON 0.0 (L) 0.1 - 1.1 mg/dL [facility] BILI CONJ 0.0 0.0 - 0.3 mg/dL [facility] LABORATOR Y [facility] T PROTEIN 7.5 6.3 - 8.2 g/dL [facility] ALBUMIN 4.2 3.5 - 5.0 g/dL [facility] ALK PHOS 93 34 - 122 U/L [facility] ALT(SGPT) 12 9 - 51 U/L [facility] AST(SGOT) 16 13 - 40 U/L [facility] Specimen Blood - ARM, LEFT Performing Organization Address City/[facility] Ph one Number [facility] CLIA: [id number], [address] [place], [place] [address] [facility] * Troponin I (04/17/2019 2:03 PM CDT) TROPONIN I 0.001 <=0.034 ng/mL [facility] Specimen Blood - ARM, LEFT Narrative Performed At Equal or Less than 0.034 ng/ml---Normal [facility] LABO RATORY Note: Cardiac troponin begins to rise 3-4 hours after the onset of ischemia. [facility] Repeat in 4-6 hours if the sample was d rawn within 3-4 hours of the onset of the [place] symptom and found normal. Between 0.035 and [...] patient's use of biotin. Performing Organization Address [facility] Ph one Number [facility] CLIA: [id number], [address] [place], [place] [address] [facility] * Lipase Serum (04/17/2019 2:03 PM CDT) Pathologist [facility] LIPASE 86 0 - 220 U/L [facility] Specimen Blood - ARM, LEFT Performing Organization [facility] Ph one Number [facility] CLIA: [id number], [address] [place], [place] [address] [facility] * EKG-12 LEAD (04/17/2019 1:48 PM CDT) Specimen Performing [facility] Ph one Number [facility] * EMERGENCY SERVICES AGREEMENTS AND AUTHORIZATIONS (04/17/2019 12:01 AM CDT) Specimen Performing [facility] Ph one Number HIM * EXTERNAL PROVIDER RECORDS (04/14/2019 12:01 AM CDT) Only the most recent of 3 results within the time period is included. Specimen Performing [facility] Ph one Number HIM * XR [...] Plan / Dates Group Medicare Adv HMO [facility] [id number] 2018- MANAGED MEDICARE HEALTHCARE Present DUAL COMPLETE HMO [facility] [id number] 2018- [address] [employer] H Present [address] [place] [address] Medicaid [place] MEDICAID xxxxxxxxx 2019-P [phone] [address] [place] [facility] [address] [place] [address] amily (Home) [place] [address] [facility] 1965 [address] [address] Health (Equality) [place] [address] Advance Directives Patient Lab Clerk Explanation Type Date Recorded 0 Advance Directives 08/08/2013 8:00 AM and Living Will Power of Pitch Filler 08/08/2013 8:00 AM
--- OUTSIDE RECORDS SUMMARY | 2019-12-13 15:29 | XMS REPORT | Clinical Summary ---
Author Author [facility] - Health Organization [facility] - Health Address Unknown Phone Unavailable Care Team Providers Care Mobile Application Development Lead Name Role Phone Ovidio Clarke MD PCP [...] Added automatically from request for jimmy solorio [id number] Cervical spondylosis with radiculopathy 01/01/2019 Overview: Added automatically from request for jimmy solorio [id number] Mixed hyperlipidemia 08/13/2018 Overview: LDL 140 07/17/2018 Left tennis elbow 06/17/2018 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 Overview: R Avulsion fracture of lateral epicondyle of humerus 0 11/14/2017 Painful patella, unspecified laterality 11/05/2017 S/P revision of total hip 09/18/2017 Colon cancer screening 05/24/2017 Overview: Added automatically from request for jimmy solorio [id number] Hematemesis with nausea 05/24/2017 Overview: Added automatically from request for jimmy solorio [id number] Nausea and vomiting, intractability of vomiting not s pecified, unspecified 05/24/2017 vomiting type Overview: Added automatically from request for jimmy solorio [id number] ANJELICA (obstructive sleep apnea) 05/10/2017 Obesity (BMI 30-39.9) 05/01/2017 Microhematuria 02/14/2017 Complex tear of medial meniscus of right knee as curr ent injury, initial 01/18/2017 encounter Overview: Added automatically from request for jimmy solorio [id number] Elevated MCV 07/25/2016 Overview: 103.4 07/22/2016 Muscle [...] nodular opacitiy on chest xray at [facility] 05/22/2015 Hiatus hernia syndrome 04/09/2015 Overview: [...] lower leg 11/25/2013 Overview: ICD10 Diagnosis [employer] Knee crepitus 11/25/2013 Genu valgum, acquired 11/25/2013 Overview: ICD10 Diagnosis [employer] Planning [employer] Patellofemoral misalignment with pain 11/25/2013 [...] 11/16/2010 Headache 04/08/2010 Overview: ICD10 Diagnosis [employer] Planning [employer] Nonerosive nonspecific gastritis 04/08/2010 Overview: EGD Dr. Lloyd Glossitis 02/23/2010 Tobacco use disorder 02/23/2010 Menorrhagia 05/19/2009 Vision blurred 05/19/2009 Acute upper respiratory infection 08/14/2008 Overview: ICD10 Diagnosis [employer] Planning Technician [employer] Acute pharyngitis 08/14/2008 Screening for malignant neoplasm of cervix 9 Overview: ICD10 Diagnosis [employer] Planning Techn[employer] Breast screening 07/16/2008 Overview: ICD10 Diagnosis [employer] Planning Technician [employer] Urinary tract infection, site not specified 04/29/20 08 Backache 06/02/2007 Overview: Lower back pain ICD10 Diagnosis [employer] Planning Technician [employer] Pain in joint 06/02/2007 Overview: ICD10 Diagnosis Term Planning Technician [employer] Cervicalgia 06/02/2007 Myalgia and myositis 06/02/2007 Overview: Bilateral trapezius pain ICD10 Diagnosis Term Planning [employer]ician [employer] Absence of menstruation 04/25/2007 Anemia 03/25/2007 Overview: ICD10 Diagnosis Term Planning Technician [employer] Helicobacter pylori infection 06/11/2006 Overview: ICD10 Diagnosis Term Planning Technician Utility Acute peptic ulcer 06/11/2006 Overview: ICD10 Diagnosis Term Planning Technician Utility Abdominal pain 04/25/2006 Overview: ICD10 Diagnosis Term Planning Technician Utility Ankylosing spondylitis 04/25/2006 Vaginitis and vulvovaginitis 04/25/2006 Overview: ICD10 Diagnosis Term Planning Technician Utility Other, mixed, or unspecified nondependent drug abuse, continuous 11/30/2005 Resolved Problems Problem Noted Date Resolved Date Arm laceration, right, subsequent encounter 04/13/2014 04/13/2014 Syncope and collapse 02/27/2007 06/28/2014 Bipolar I disorder, most recent episode (or current) unspec ified 01/03/2007 01/23/2018 Overview: Dr. 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 11/30/2005 02/11/2018 Overview: ICD10 Diagnosis Term Planning Technician Utility Encounters Care Team Description Date Type [...] 03/19/2019 Office Visit Family Medicine Doctor Unassigned, [place] 03/18/2019 Orders Only Daniela Velarde FNP Bilateral carpal tunnel syndrome (Primar y Dx) 03/12/2019 Office Visit Orthopedic Surgery Doctor Unassigned, [place] 03/12/2019 Orders Only Ovidio Clarke Jr., MD Refill Request 03/09/2019 Refill Family Medicine Doctor Unassigned, [place] 03/03/2019 Orders Only Omar Clay DO 3, Jennifer Adult Infusion Nurse Ankylosing spondylitis, unspecified site of spine (Primary Dx) 02/20/2019 Nurse Visit Infusion Therapy Jess Tovar MD Results 02/20/2019 Telephone Neurology Omar Clay DO Refill Request 02/19/2019 Refill Rheumatology Carley Villarreal MD Wu, Laura J, MD 02/18/2019 [facility] Electroneurodiagnos tic Encounter Robert Chandler MD Randle, [...] nausea 02/03/2019 Office Visit Gastroenterology Doctor Unassigned, [place] 02/03/2019 Orders Only Sebastian Bunn MD Referral/consult (PT) 01/29/2019 Telephone Orthopedic [...] radiculopathy 01/23/2019 Hospital Surgery Encounter Doctor Unassigned, [place] 01/23/2019 Orders Only Neha El, ALVIN Microhematuria [...] Team Description Date Type Specialty Omar Clay, [address] [place] [address] [phone] 3Jennifer Adult Infusion Nurse 04/17/2019 Nurse Visit Infusion Therapy Sebastian Doe [address] [place] [address] [phone] 04/30/2019 Office Visit Pain Medicine Ovidio Verma MD [address] [place], [place] [address] 05/14/2019 Office Visit Orthopedic Surgery Ginny Oneal MD [address] [place] [id number] 06/09/2019 Office Visit Gastroenterology Omar Clay, DO [address] [place] [address] [phone] 3, Jennifer Adult Infusion Nurse 06/12/2019 Nurse Visit [place] [address] [place] [phone] 06/19/2019 Office Visit Family Medicine Omar Clay, DO [address] [place] [address] [phone] 06/25/2019 Office Visit Rheumatology Health Maintenance Due [...] 1-44-28 / 0 / [id number] Bipolar Head, Bulverde Uhr Bipolar BIPOLAR Right: Hip Bulverde 37k00rt #Uh1-44-28 - S0 head Implanted: Qty: 1 on 09/18/2017 by Sebastian Bunn MD at [facility] 07/07/2021 1023-12 / [id number] / [id number] Cancellous Cubes, Community Tissue BONE Right: [facility] Freeze Dried 30 Cc Tissue #1023-12 - [id number] Services Implanted: Qty: 1 on 09/18/2017 by Sebastian Bunn MD at [facility] 03/08/2018 2018-40 / [id number] / [id number] Dbm Putty Maxxeus 10cc Cts #2018-40 BONE Right: Hip [facility] - [id number] Tissue Implanted: Qty: 1 on 09/18/2017 by Services Sebastian Bunn MD at [facility] 04/07/2022 1365-28-720 / 0 / [id number] Delta Ceramic Femoral Head 28mm +5 Head Right: Hip Depuy 06/21 Taper Depuy Ref#[id number] Synthes Implanted: Qty: 1 on 09/18/2017 by Sebastian Bunn MD at [facility] 03/29/2022 623-00-44F / 0 / [id number] Insert, Bul[place]de Trident 0deg 44mm Liner Right: Hip Donal #623-00-44f Implanted: Qty: 1 on 09/18/2017 by Sebastian Bunn MD at [facility] 04/24/2022 5260-5-050 / 0 / [id number] Screw Osteolock 3.[address] SCREW Right: Hip [place]de Cancellous 50mm Bulverde Ref#[id number] Implanted: Qty: 2 on 09/18/2017 by Sebastian Bunn MD at [facility] 06/01/2022 5260-5-020 / 0 / [id number] Screw Ostelock 3.[address] SCREW Right: Hip Donal Cancellous 20mm Bulverde Ref#[id number] Implanted: Qty: 1 on 09/18/2017 by Sebastian Bunn MD at [facility] 06/01/2022 5260-5-016 / 0 / [id number] Screw Osteolock 3.[address] SCREW Right: Hip Donal Cancellous 18mm Donal Ref#[id number] Implanted: Qty: 1 on 09/18/2017 by Sebastian Bunn MD at [facility] 01/02/2022 509-02-60F / 0 / [id number] Shell, Donal Tritanium Revision Shell Right: Hip Bul[place]de Acetabular #[id number] - S0 Implanted: Qty: 1 on 09/18/2017 by Sebastian Bunn MD at [facility] Procedures Comments Procedure Name Priority Date/Time Associated [...] PANEL STAT 01/20/2019 Lower a bdominal pain (31693) (ALB,T.PRO,BILI 1:27 PM CDT T,BU/BC,ALT,AST,ALK PHOS) BASIC [...] 3:30 PM CDT) Case Report Surgical Pathology [facility] Case: [id number] Authorizing Provider: Ricco Hannah DO Collected: 02/17/2019 1530 Ordering Location: [facility] Received: 02/17/2019 1706 Center Pathologist: Hannah Nicole MD PHD Specimen: STOMACH, Gastric biopsies Final Diagnosis A. STOMACH, BIOPSY: [facility] Electr onically - GASTRIC MUCOSA WITH SERVICES signed by Corey, ACTIVE CHRONIC GASTRITIS MD Hannah PHD on - H. PYLORI-LIKE ORGANISM 02/19/2019 at 10:55 IDENTIFIED AM - NO INTESTINAL METAPLASIA IDENTIFIED I have personally reviewed all specimens/slides and agree with all statements made by residents, fellows or pathologist assistants whose name(s) may appear on this report. Clinical Special screening for [facility] Information malignant neoplasms, colon SERVICES [Z12.11]Hematemesis with nausea [K92.0] #1 Eval for H. Pylori Gross Specimen A is received in [facility] Description formalin labelled with the SERVICES patient s name, UH number "gastric biopsies and consists of 4 ulloa-pink irregular soft tissue fragments (0.7 x 0.2 x 0.2 cm in aggregate). The specimen is filtered through a biopsy bag and entirely submitted in toto in A1. DEMETRIA Medina (ASCP)cm Embedded Images [facility] SERVICES Specimen Tissue - STOMACH Performing Organization Address City/State/[facility] Ph one Number [facility] CLIA: [id number], [address] [place] [address] * COLONOSCOPY (ENDO) (02/17/2019 3:25 PM CDT) Specimen Performing Organization Address [facility] Ph one Number ENDO * EGD (ENDO) (02/17/2019 3:08 PM CDT) Specimen Performing Organization Address [facility] Ph one Number ENDO * CONSENT/REFUSAL FOR DIAGNOSIS AND TREATMENT (02/17/2019 12:48 PM CDT) Only the most recent of 2 results within the time period is included. Specimen Performing Organization Address City/State/Zipcode Ph one Number HIM * ASSIGNMENT OF BENEFITS (02/17/2019 12:47 PM CDT) Only the most recent of 2 results within the time period is included. Specimen Performing Organization Address [facility] Ph one Number HIM * [facility] (02/17/2019 12:01 AM CDT) Specimen Performing Organization Address [facility] Ph one Number HIM * CBC WITH DIFFERENTIAL (02/10/2019 12:31 PM CDT) Only the most recent of 2 results within the time period is included. WBC 9.53 4.30 - 11.10 [facility] 10*3/L [facility] RBC 4.25 3.93 - 5.25 10*6/L [facility] LABO RATORY [facility] HGB 14.5 11.6 - 15.0 g/dL [facility] RY [facility] HCT 43.7 35.7 - 45.2 % [facility] MCV 102.8 (H) 80.6 - 95.5 fL [facility] MCH 34.1 (H) 25.9 - 32.8 pg [facility] MCHC 33.2 31.6 - 35.1 g/dL [facility] RDW-SD 52.2 (H) 39.0 - 49.9 fL [facility] RDW-CV 13.7 12.0 - 15.5 % [facility] PLT 309 166 - 358 10*3/L [facility] MPV 10.0 9.5 - 12.9 fL [facility] NRBC/100 WBC 0.0 0.0 - 10.0 /100 WBCs [facility] NRBC x10^3 <0.01 10*3/L [facility] GRAN MAT (NEUT) 61.2 % [facility] % [facility] IMM GRAN % 0.30 % [facility] LYMPH % 28.8 % [facility] MONO % 5.9 % [facility] EOS % 3.4 % [facility] BASO % 0.4 % [facility] GRAN MAT 5.84 1.88 - 7.09 10*3/uL [facility] x10^3(ANC) [facility] IMM GRAN x10^3 0.03 0.00 - 0.06 10*3/uL [facility] LYMPH x10^3 2.74 1.32 - 3.29 10*3/uL [facility] MONO x10^3 0.56 0.33 - 0.92 10*3/uL [facility] EOS x10^3 0.32 0.03 - 0.39 10*3/uL [facility] BASO x10^3 0.04 0.01 - 0.07 10*3/uL [facility] Specimen Blood - ARM, LEFT Performing Organization Address City/State/Zipcode Ph one Number [facility] CLIA: [id number], [address] [place], [place] [address] [address] [facility] * Basic Metabolic Panel (NA, K, CL, CO2, GLUCOSE, BUN, CREATININE, CA) (02/10/2019 12:31 PM CDT) Only the most recent of 2 results within the time period is included. NA 142 135 - 145 mmol/L [facility] K 4.6Comment: Slight hemolysis 3.5 - 5.0 mmol/L [facility]ORAT[facility] CL 106 98 - 108 mmol/L [facility] LABORATOR Y [facility] CO2 TOTAL 28 23 - 31 mmol/L [facility]ATORY [facility] AGAP 8 2 - 16 [facility] BUN 8Comment: Slight hemolysis 7 - 23 mg/dL [facility] B LABORATORY [facility] GLUCOSE 99 70 - 110 mg/dL [facility]ORATORY [facility] CREATININE 0.57 0.50 - 1.04 mg/dL [facility] CALCIUM 9.9 8.6 - 10.6 mg/dL [facility] eGFR 110.5 mL/min/1.73m2 [facility] Calculation [facility] (Non-[facility]) eGFR 134.0 mL/min/1.73m2 [facility] Calculation [facility] ([facility]) Specimen Blood - ARM, LEFT Narrative Performed At Association of Glomerular Filtration Rate (GFR) and S taging of Kidney Disease* [facility] + + +------ + [facility] | GFR (mL/min/1.73 m2) | With Kidney Damage | [facility] Kidney Damage DIAMOND BAR + + -------+ + | >90 | [...] abnormalities in imaging tests). Performing Organization Address City/[facility] Hospitalcode Ph one Number [facility] CLIA: [id number], [address] [place], [place] [address] [address] [facility] * EMERGENCY SERVICES AGREEMENTS AND AUTHORIZATIONS (02/10/2019 12:01 AM CDT) Only the most recent of 2 results within the time period is included. Specimen Performing Organization Address [facility] one Number HIM * US PELVIS [...] performed including color Do ppler evaluation with eligibility services representative images obtained. Spectral Doppler evalu [...] is present in the cul-de-sac. Procedure Note [facility], Radiant Results Inft User - 02/05/2019 11:49 AM CDT TRANSABDOMINAL AND TRANSVAGINAL PELVIC ULTRASOUND HISTORY: 53-year-old female with left pelvic pain TECHNIQUE: Survey transabdominal and transvaginal ultrasound imaging of the pelvis was performed including color Doppler evaluation with eligibility services representative images obtained. Spectral Doppler evaluation [...] one Number PACS * DAY SURGERY - [facility] (01/23/2019 12:01 AM CDT) Specimen Performing Organization Address City/State/Zipcode Ph one Number HIM * URINE CULTURE (01/22/2019 9:33 AM CDT) URINE CULTURE No aerobic growth (< 1000 [facility] TORY CFU/mL) SERVICES Specimen Urine - URINE, CLEAN CATCH Performing Organization Address City/State/Zipcode Ph one Number [facility] CLIA: [id number], [address] [place] [address] [facility] * [facility] PATIENT FINANCIAL POLICY (01/22/2019 8:51 AM CDT) [...] suggest ankylosing spo ndylitis. Performing Organization Address City/[facility] Ph one Number PACS/VR/DOSE * EXTRA TUBE URINE CULTURE (01/20/2019 1:42 PM CDT) Specimen Urine - URINE, CLEAN CATCH Performing Organization Address [facility] Ph one Number [facility] CLIA: [id number], [address] [place], [place] [address] [facility] * Urinalysis (01/20/2019 1:42 PM CDT) APPEARANCE Clear Clear [facility] COLOR Yellow Yellow [facility] PH 6.0 4.8 - 8.0 [facility] SP GRAVITY 1.011 1.003 - 1.030 [facility] GLU U QUAL Normal Normal [facility] BLOOD 2+ (A) Negative [facility] KETONES Negative Negative [facility] PROTEIN Negative Negative [facility] UROBILIN Normal Normal [facility] BILIRUBIN Negative Negative [facility] NITRITE Negative Negative [facility] LEUK TRAVIS 25/uL (A) Negative [facility] RBC/HPF 15 (H) 0 - 3 HPF [facility] WBC/HPF 5 0 - 5 HPF [facility] BACTERIA Negative Negative [facility] SQ EPITH 6 (H) <=2 HPF [facility] Specimen Urine - URINE, CLEAN CATCH Performing Organization Address [facility] one Number [facility] CLIA: [id number], [address] [place] [address] [facility] * Hepatic Function Panel (ALB, T.PRO, BILI T, BU/BC, ALT, AST, ALK PHOS) (01/20/2019 1:27 PM CDT) TOTAL BILI 0.3 0.1 - 1.1 mg/dL [facility] BILI UNCON 0.2 0.1 - 1.1 mg/dL [facility] BILI CONJ 0.0 0.0 - 0.3 mg/dL [facility] T PROTEIN 8.0 6.3 - 8.2 g/dL [facility] ALBUMIN 4.4 3.5 - 5.0 g/dL [facility] ALK PHOS 99 34 - 122 U/L [facility] ALT(SGPT) 16 9 - 51 U/L [facility] AST(SGOT) 19 13 - 40 U/L [facility] Specimen Blood - ARM, RIGHT Performing Organization Address [facility] one Number [facility] CLIA: [id number], [address] [place] [address] [facility] * Lipase Serum (01/20/2019 1:27 PM CDT) LIPASE 57 0 - 220 U/L [facility] Specimen Blood - ARM, RIGHT Performing Organization Address [facility] one Number [facility] CLIA: [id number], [address] [place] [address] [facility] * GALV ONLY - VAGINAL PATHOGENS BY DNA PROBE (01/07/2019 2:13 PM CDT) Trichomonas Negative Negative [facility] vaginalis SERVICES Gardnerella Positive (A) Negative [facility] vaginalis SERVICES Sheryl species Positive (A) Negative [facility] Specimen Fluid - VAGINA Performing Organization Address City/State/Zipcode Ph one Number [facility] CLIA: [id number], [address] [place] [address] [facility] from Last 3 Months Insurance Type Payer Benefit Subscriber ID Effective Phone Address Plan / Dates Group Medicare Adv HMO [facility] [id number] 2018- MANAGED MEDICARE HEALTHCARE Present DUAL COMPLETE HMO [facility] [id number] 2018- [address] SOLUTIONS H Present [address] [place] [address] Medicaid [place] MEDICAID xxxxxxxxx 2019-P [phone] [address] [place] [facility] [id number] [place] [address] amily (Home) [place] [address] [facility] Self 1965 [address] [place] [address] Health (Home) [place] [address] Advance Directives Patient Continuous [employer] Explanation Type Date Recorded 0 Advance Directives 08/08/2013 8:00 AM and Living Will Power of Winchman/Crane Operator 08/08/2013 8:00 AM
--- OUTSIDE RECORDS SUMMARY | 2019-12-13 15:30 | XMS REPORT | Clinical Summary ---
Author Author [facility] - [facility] Organization [facility] - Health Address Unknown Phone Unavailable Care Team Providers Care Scrap Baler Name Role Phone Ovidio Clarke MD PCP Allergies Comments Active Allergy Reactions Severity Noted Date Aspirin Hives 03/21/2012 Sulfa (Sulfonamide Hives 11/29/2005 Antibiotics) Medications End Date Status Medication Sig Dispensed Refills Start Date Active azithromycin 250 mg Take 250 mg 0 tablet by mouth. Active VENTOLIN HFA 90 INHALE [...] bedtime as type needed for Insomnia. Active hydroCHLOROthiazide 25 mg Take 1 tablet 30 tablet 11 tabletIndications: by mouth 9 Essential hypertension daily. Active Miconazole-Skin Clnsr17 Use as 1 Kit 5 (MONISTAT 7 CREAM, APPL, directed 9 WIPES) 2 % (100 mg)- 2 % KitIndications: Vaginitis and vulvovaginitis Active metoclopramide HCl 10 mg Take 1 [...] type for up to 12 doses. Active CYCLOBENZAPRINE 5 mg TAKE 1 TABLET [...] (two) depressive type times daily with meals. Active buPROPion XL 150 mg 24 hr TK 1 T PO D 2 tablet 9 Active paliperidone 6 mg 24 hour TK 1 T PO D 2 tablet 9 Active rifAMPin 300 mg capsule 2 tabs 3 x 0 weekly 9 Active ethambutol 400 mg tablet 3 tabs three 0 06/19 times a week 9 Active cyclobenzaprine 5 mg TAKE 1 TABLET 30 tablet 5 tabletIndications: BY MOUTH 9 Ankylosing spondylitis, THREE TIMES unspecified site of spine DAILY Active esomeprazole (NEXIUM) 40 Take 1 90 capsule 3 1 mg capsuleIndications: capsule by 9 Gastroesophageal reflux mouth daily disease without with esophagitis, Nonerosive breakfast. nonspecific gastritis TAKE ONE CAPSULE BY MOUTH EVERY MORNING WITH BREAKFAST Active gabapentin 300 mg Take 2 180 capsule 3 06/19/20 1 capsuleIndications: capsules by 9 Ankylosing spondylitis, mouth 3 unspecified site of spine (three) times daily. Active Diclofenac Sodium 1 % Apply 2 g to 100 g 0 gelIndications: Painful neck qid 9 patella, unspecified laterality, Primary localized osteoarthrosis, lower leg, unspecified laterality, Muscle weakness of lower extremity, Effusion of lower leg joint, Knee crepitus, unspecified laterality, Patellofemoral instability of right knee with pain Active HYDROcodone-acetaminophen Take 1 tablet 120 tablet 0 10-325 mg by mouth 9 tabletIndications: every 6 (six) Ankylosing spondylitis, hours as unspecified site of needed for spine, Painful patella, Pain (scale unspecified laterality, 4-6). Primary localized osteoarthrosis, lower leg, unspecified laterality Active LORazepam 1 mg Take one 6 tablet 0 tabletIndications: tablet by 0 Anxiety mouth daily as needed for anxiety Status Hospital, Clinic, or Ordered Dose Route Frequency Start End Date Other Facility Date Administered Medication Active lactated ringers IV 1000 mL IV Infusion CONTINUOUS infusion 1,000 mL 19 Active Problems Problem Noted Date Essential hypertension 03/19/2019 Carpal tunnel syndrome on right 03/19/2019 Overview: EMG 02/18/2019 Special screening for malignant neoplasms, colon Overview: Added automatically from request for FITiST [id number] Cervical spondylosis with radiculopathy 01/01/2019 Overview: Added automatically from request for FITiST [id number] Mixed hyperlipidemia 08/13/2018 Overview: LDL 140 07/17/2018 Left tennis elbow 06/17/2018 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 Overview: R Avulsion fracture of lateral epicondyle of humerus 0 11/14/2017 Painful patella, unspecified laterality 11/05/2017 S/P revision of total hip 09/18/2017 Colon cancer screening 05/24/2017 Overview: Added automatically from request for FITiST [id number] Hematemesis with nausea 05/24/2017 Overview: Added automatically from request for FITiST [id number] Nausea and vomiting, intractability of vomiting not s pecified, unspecified 05/24/2017 vomiting type Overview: Added automatically from request for FITiST [id number] ANJELICA (obstructive sleep apnea) 05/10/2017 Obesity (BMI 30-39.9) 05/01/2017 Microhematuria 02/14/2017 Complex tear of medial meniscus of right knee as curr ent injury, initial 01/18/2017 encounter Overview: Added automatically from request for jimmy solorio [id number] Elevated MCV 07/25/2016 Overview: 103.4 07/22/2016 Muscle [...] lobe nodular opacitiy on chest xray at [facility] 05/22/2015 Hiatus hernia syndrome 04/09/2015 Overview: EGD [...] lower leg 11/25/2013 Overview: ICD10 Diagnosis Term Instructor Psychiatric [employer]ide Utility Knee crepitus 11/25/2013 Genu valgum, acquired 11/25/2013 Overview: ICD10 Diagnosis Term Instructor Psychiatric Aide Utility Patellofemoral misalignment with pain 11/25/2013 Primary [...] 11/16/2010 Headache 04/08/2010 Overview: ICD10 Diagnosis Term Instructor Psychiatric Aide Utility Nonerosive nonspecific gastritis 04/08/2010 Overview: EGD Dr. Lloyd Glossitis 02/23/2010 Tobacco use disorder 02/23/2010 Menorrhagia 05/19/2009 Vision blurred 05/19/2009 Acute upper respiratory infection 08/14/2008 Overview: ICD10 Diagnosis Term Instructor Psychiatric Aide Utility Acute pharyngitis 08/14/2008 Screening for malignant neoplasm of cervix 9 Overview: ICD10 Diagnosis Term Instructor Psychiatric Aide Utility Breast screening 07/16/2008 Overview: ICD10 Diagnosis Term Instructor Psychiatric Aide Utility Urinary tract infection, site not specified 04/29/20 08 Backache 06/02/2007 Overview: Lower back pain ICD10 Diagnosis Term Instructor Psychiatric Aide [employer] Pain in joint 06/02/2007 Overview: ICD10 Diagnosis Term Instructor Psychiatric Aide Utility Cervicalgia 06/02/2007 Myalgia and myositis 06/02/2007 Overview: Bilateral trapezius pain ICD10 Diagnosis Term Instructor Psychiatric Aide Utility Absence of menstruation 04/25/2007 Anemia 03/25/2007 Overview: ICD10 Diagnosis Term Instructor Psychiatric Aide Utility Helicobacter pylori infection 06/11/2006 Overview: ICD10 Diagnosis Term Instructor Psychiatric Aide Utility Acute peptic ulcer 06/11/2006 Overview: ICD10 Diagnosis Term Instructor Psychiatric Aide Utility Abdominal pain 04/25/2006 Overview: ICD10 Diagnosis Term Instructor Psychiatric Aide Utility Ankylosing spondylitis 04/25/2006 Vaginitis and vulvovaginitis 04/25/2006 Overview: ICD10 Diagnosis Term Instructor Psychiatric Aide Utility Other, mixed, or unspecified nondependent drug abuse, continuous 11/30/2005 Resolved Problems Problem Noted Date Resolved Date Arm laceration, right, subsequent encounter 04/13/2014 04/13/2014 Syncope and collapse 02/27/2007 06/28/2014 Bipolar I disorder, most recent episode (or current) unspec ified 01/03/2007 01/23/2018 Overview: Dr. 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 11/30/2005 02/11/2018 Overview: ICD10 Diagnosis Term Instructor Psychiatric Aide Utility Encounters Care Team Description Date Type Specialty Ovidio Clarke Jr., MD Rx Concern/Question 07/04/2019 Telephone Family Medicine Omar Clay DO 3, Jennifer Adult Infusion Nurse Ankylosing spondylitis, unspecified site of spine (Primary Dx) 06/20/2019 Nurse Visit Infusion Therapy Doctor Unassigned, [place] 06/20/2019 Orders Only Ovidio Clarke Jr., MD Ankylosing spondylitis, unspecified site of spine (Primary Dx); Influenza vaccine needed; Painful patella, unspecified laterality; Primary localized osteoarthrosis, lower leg, unspecified laterality; Gastroesophageal reflux disease without esophagitis; Nonerosive nonspecific gastritis; Muscle weakness of lower extremity; Effusion of lower leg joint; Knee crepitus, unspecified laterality; Patellofemoral instability of right knee with pain; Tobacco use disorder; Mycobacterium avium complex 06/19/2019 Office Visit Family Medicine Daniela Stone, [place] 06/18/2019 Anesthesia Surgery Event Zia Resendez MD 06/18/2019 Hospital Surgery Encounter Zia Resendez MD Appointment (canceled surgery ) 06/18/2019 Telephone Orthopedic Surgery Doctor Unassigned, [place] 06/18/2019 Orders Only Zia Resendez MD Notification 06/11/2019 Telephone Orthopedic Surgery Ovidio Clarke Jr., MD Refill Request 06/06/2019 Refill Family Medicine Sebastian Doe MD Cervical spondylosis with radiculopathy (Primary Dx); Chronic pain syndrome; Carpal tunnel syndrome of right wrist; Ankylosing spondylitis, unspecified site of spine 06/04/2019 Office Visit Pain Medicine Doctor Unassigned, [place] 06/04/2019 Orders Only Zia Resendez MD Bilateral carpal tunnel syndrome [...] MD Refill Request 04/14/2019 Refill Family Medicine from Last 3 Months Immunizations Name Administration Dates Next Due Hepatitis A Adult 02/19/2018 Influenza Virus Vaccine 05/01/2018, 05/10/2012, 07/2010, 05/20/2010, 05/05/2008 Influenza Virus Vaccine 04/09/2013 (3+ yrs) Influenza Virus Vaccine 06/19/2019 Quad .5 mL IM 6+ MO Influenza Virus Vaccine 05/10/2017, 05/26/2015, 04/2015 (Deferred: Quad IM 3+ YRS Immunizations Up to Date - incorrect vaccine ordered; s/b prevnar 13) PPD (TB) 08/10/2014, 05/19/2008 Pneumococcal 13 08/18/2014 Conjugate, PCV13 (Prevnar 13) Pneumococcal 02/19/2018 Polysaccharide, PPSV23 (PNEUMOVAX) TDAP (ADACEL) VACCINE 08/24/2014 Td 04/01/2014 Family [...] Signs Reading Time Taken Comments Vital Sign 125/73 06/20/2019 11:09 AM LIVESTOCK PRODUCER Blood Pressure 99 06/20/2019 11:09 AM LIVESTOCK PRODUCER Pulse 37.1 C (98.8 F) 06/20/2019 11:09 AM LIVESTOCK PRODUCER Temperature 18 06/20/2019 11:09 AM LIVESTOCK PRODUCER Respiratory Rate 98% 06/20/2019 11:09 AM LIVESTOCK PRODUCER Oxygen Saturation - - Inhaled Oxygen Concentration 87 kg (191 lb 12.8 oz) 06/30/2019 2:40 PM LIVESTOCK PRODUCER Weight 165.1 cm (5' 5") 06/11/2019 9:04 AM LIVESTOCK PRODUCER Height 31.92 06/11/2019 9:04 AM LIVESTOCK PRODUCER Body Mass Index Plan of Treatment Care Team Description Date Type Specialty Zia Resendez MD [address] [facility] [id number] [place], [place] [id number] 07/15/2019 Hospital Surgery Encounter Sherley Ding MD [address] [id number] [place], [place] [address] 07/15/2019 Anesthesia Surgery Event Zia Resendez MD [address] [id number] [place], [place] [phone] OPEN CARPAL TUNNEL RELEASE 07/15/2019 Surgery Surgery Sebastian Doe MD [id number] [place], [place] [address] 07/29/2019 Office Visit Pain Medicine 3, Jennifer Adult Infusion Nurse 08/15/2019 Nurse Visit [place] [address] [place] [address] 09/18/2019 Office Visit Family Medicine Health Maintenance Due Date Last Done Comments Breast Cancer Screening 06/14/2019 06/14/2018, (MAMMOGRAM) PAP SMEAR 11/04/2019 11/03/2016 (Previou sly completed), 07/16/2008, 05/26/2005, Additional history exists Zoster Recombinant 06/17/2020 Postponed from 11/06 Vaccine (SHINGRIX) (1 of (Insurance / Financial) 2) PNEUMOCOCCAL 0-64 YEARS 02/19/2023 02/19/2018, COMBINED SERIES (3 of 3 - PPSV23) DTaP,Tdap,and Td Vaccines 08/24/2024 08/24/2014, 04/01/2014 (2 - Td) COLONOSCOPY 02/17/2029 02/17/2019, 015 HEPATITIS C (HCV) SCREEN Completed 11/17/2015, 1 07/28/2012, 10/11/2004, Additional history exists INFLUENZA VACCINE Completed 06/19/2019, 018, 05/10/2017, Additional history exists Goals Goal Patient Associated Recent Progress Patient-Stat Aut hor Goal Type Problems ed? Quit using tobacco Tobacco No Ashely, (cigarettes, smokeless, etc) Use Odalys Gauthier MA Implants Device Identifier Shelf Expiration Date Model / Serial / L ot Implanted Type Area Manufactur er 08/23/2022 [id number] / 0 / [id number] Bipolar Head, Donal Uhr Bipolar BIPOLAR Right: Hip [place] [id number] #[id number] - S0 head Implanted: Qty: 1 on 09/18/2017 by Sebastian Bunn MD at [facility] 07/07/2021 1023-12 / [id number] / [id number] Cancellous Cubes, Community Tissue BONE Right: Hip Community Services Freeze Dried 30 Cc Tissue #1023-12 - [id number] Services Implanted: Qty: 1 on 09/18/2017 by Sebastian Bunn MD at [facility] 03/08/2018 2018-40 / [id number] / [id number] Dbm Putfinesse Chaparros 10 Cts #2018-40 BONE Right: Hip [facility] - [id number] Tissue Implanted: Qty: 1 on 09/18/2017 by Services Sebastian Bunn MD at [facility] 04/07/2022 [id number] / 0 / [id number] Delta Ceramic Femoral Head 28mm +5 Head [...] [facility] [place] 04/24/2022 [id number] / 0 / [id number] Screw Osteolock 3.[address] SCREW Right: Hip [place] Cancellous 50mm Donal Ref#[id number] Implanted: Qty: 2 on 09/18/2017 by Sebastian Bunn MD at [facility] 06/01/2022 5260-5-020 / 0 / [id number] Screw Ostelock 3.[address] SCREW Right: Hip Donal Cancellous 20mm [place] Ref#[id number] Implanted: Qty: 1 on 09/18/2017 by Sebastian Bunn MD at [facility] 06/01/2022 5260-5-016 / 0 / [id number] Screw Osteolock 3.[address] SCREW Right: Hip Donal Cancellous 18mm [place] Ref#[id number] Implanted: Qty: 1 on 09/18/2017 by Sebastian Bunn MD at [facility] 01/02/2022 [id number] / 0 / [id number] Shell, [place] Tritanium Revision Shell Right: Hip Donal Acetabular #[id number] - [id number] Implanted: Qty: 1 on 09/18/2017 by Sebastian Bunn MD at [facility] Procedures Comments Procedure Name Priority Date/Time Associated Diag nosis EXTERNAL PROVIDER RECORDS Routine 06/20/2019 12:01 AM LIVESTOCK PRODUCER FLU VACC ([id number]), 6+ Routine 06/19/2019 Influ tin vaccine needed MONTHS, IM, QUAD 11:21 AM LIVESTOCK PRODUCER CONSENT/REFUSAL FOR Routine 06/18/2019 DIAGNOSIS AND TREATMENT 8:10 AM LIVESTOCK PRODUCER ASSIGNMENT OF BENEFITS Routine 06/18/2019 8:09 AM LIVESTOCK PRODUCER PATIENT QUESTIONNAIRE Routine 06/04/2019 12:01 AM LIVESTOCK PRODUCER MR CERVICAL SPINE WO Routine 05/23/2019 Cervical radiculopathy CONTRAST 2:36 PM LIVESTOCK PRODUCER XR ABDOMEN ACUTE SERIES STAT 04/17/2019 Epigas tric pain 2:33 PM CDT CBC WITH DIFFERENTIAL STAT 04/17/2019 Epigastr ic pain 2:03 PM CDT TROPONIN I STAT 04/17/2019 Epigastric pain 2:03 PM CDT LIPASE STAT 04/17/2019 Epigastric pain 2:03 PM CDT HEPATIC FUNCTION PANEL STAT 04/17/2019 Epigast eunice pain (82926) (ALB,T.PRO,BILI 2:03 PM CDT T,BU/BC,ALT,AST,ALK PHOS) BASIC METABOLIC PANEL STAT 04/17/2019 Epigastr ic pain (NA, K, CL, CO2, GLUCOSE, 2:03 PM CDT BUN, CREATININE, CA) CBC WITH DIFFERENTIAL Routine 04/17/2019 Epigastr ic pain 2:03 PM CDT EKG-12 LEAD Routine 04/17/2019 1:48 PM CDT EMERGENCY SERVICES Routine 04/17/2019 AGREEMENTS AND 12:01 AM CDT AUTHORIZATIONS EXTERNAL PROVIDER RECORDS Routine 04/14/2019 12:01 AM CDT from Last 3 Months Results * EXTERNAL PROVIDER RECORDS (06/20/2019 12:01 AM LIVESTOCK PRODUCER) Only the most recent of 2 results within the time period is included. Specimen Performing Organization Address [facility] one Number HIM * CONSENT/REFUSAL FOR DIAGNOSIS AND TREATMENT (06/18/2019 8:10 AM LIVESTOCK PRODUCER) Specimen Performing Organization Address [facility] one Number HIM * ASSIGNMENT OF BENEFITS (06/18/2019 8:09 AM LIVESTOCK PRODUCER) Specimen Performing Organization Address [facility] one Number HIM * PATIENT QUESTIONNAIRE (06/04/2019 12:01 AM LIVESTOCK PRODUCER) Specimen Performing Organization Address [facility] one Number HIM * MR CERVICAL SPINE WO CONTRAST (05/23/2019 2:36 PM LIVESTOCK PRODUCER) Specimen Impressions Performed At Impression: PACS/VR/DOSE Multilevel [...] IMAGES QUALITY: No axial T2 GRE sequence. I, Tanja Izaguirre MD., have reviewed t his study and agree with the above report. Narrative Performed At Exam: MR CERVICAL SPINE WO CONTRAST PACS/VR/DOSE Clinical History: Radiculopathy Technique:Multiplanar multisequence MRI of cervical spine was obtained on .5 without intravenous administration of contrast. Comparison: MRI [...] Results Inft User - 05/23/2019 8:53 PM LIVESTOCK PRODUCER Exam: MR CERVICAL SPINE WO CONTRAST Clinical [...] PACS/VR/DOS E 2. Nonobstructive bowel gas pattern INéstor MD., have review ed this study and [...] bony abnormalities are noted. Scattered pelvic phleboliths. Jeremiah are seen in the left neck regio [...] bony abnormalities are noted. Scattered pelvic phleboliths. Jeremiah are seen in the left neck region, [...] 9.29 4.30 - 11.10 [facility] 10*3/L [facility] RBC 4.10 3.93 - 5.25 10*6/L [facility] HGB 13.9 11.6 - 15.0 g/dL [facility] HCT 41.3 35.7 - 45.2 % [facility] MCV 100.7 (H) 80.6 - 95.5 fL [facility] MCH 33.9 (H) 25.9 - 32.8 pg [facility] MCHC 33.7 31.6 - 35.1 g/dL [facility] RY [facility] RDW-SD 49.2 39.0 - 49.9 fL [facility] RDW-CV 13.3 12.0 - 15.5 % [facility] PLT 318 166 - 358 10*3/L [facility] MPV 10.1 9.5 - 12.9 fL [facility] NRBC/100 WBC 0.0 0.0 - 10.0 /100 WBCs [facility] NRBC x10^3 <0.01 10*3/L [facility] GRAN MAT (NEUT) 58.5 % [facility] Y % [facility] IMM GRAN % 0.20 % [facility] LYMPH % 32.3 % [facility] MONO % 7.4 % [facility] EOS % 1.4 % [facility] BASO % 0.2 % [facility] GRAN MAT 5.43 1.88 - 7.09 10*3/uL [facility] x10^3(ANC) [facility] IMM GRAN x10^3 <0.03 0.00 - 0.06 10*3/uL [facility] LYMPH x10^3 3.00 1.32 - 3.29 10*3/uL [facility] MONO x10^3 0.69 0.33 - 0.92 10*3/uL [facility] EOS x10^3 0.13 0.03 - 0.39 10*3/uL [facility] BASO x10^3 <0.03 0.01 - 0.07 10*3/uL [facility] Specimen Blood - ARM, LEFT Performing Organization Address City/[facility] Ph one Number [facility] CLIA: [id number], [address] [place], [place] [address] [facility] * Basic Metabolic Panel (NA, K, CL, CO2, GLUCOSE, BUN, CREATININE, CA) (04/17/2019 2:03 PM CDT) NA 137 135 - 145 mmol/L [facility] RY [facility] K 4.1 3.5 - 5.0 mmol/L [facility] R[facility] CL 104 98 - 108 mmol/L [facility] Y [facility] CO2 TOTAL 24 23 - 31 mmol/L [facility] AGAP 9 2 - 16 [facility] BUN 12 7 - 23 mg/dL [facility] GLUCOSE 92 70 - 110 mg/dL [facility] CREATININE 0.61 0.50 - 1.04 mg/dL [facility] ORY [facility] CALCIUM 9.5 8.6 - 10.6 mg/dL [facility] RY [facility] eGFR 102.2 mL/min/1.73m2 [facility] Calculation [facility] (Non-[facility]) eGFR 123.9 mL/min/1.73m2 [facility] Calculation [facility] Specimen Blood - ARM, LEFT Narrative Performed At Association of Glomerular Filtration Rate (GFR) and S taging of Kidney Disease* [facility] + + +------ + [facility] | GFR (mL/min/1.73 m2) | With Kidney Damage | [facility] Kidney Damage ROSLYN + + -------+ + | >90 | [...] abnormalities in imaging tests). Performing Organization Address City/State/[facility] Ph one Number [facility] CLIA: [id number], [address] [place], [place] [address] [facility] * Hepatic Function Panel (ALB, T.PRO, BILI T, BU/BC, ALT, AST, ALK PHOS) (04/17/2019 2:03 PM CDT) TOTAL BILI 0.3 0.1 - 1.1 mg/dL [facility] BILI UNCON 0.0 (L) 0.1 - 1.1 mg/dL [facility] BILI CONJ 0.0 0.0 - 0.3 mg/dL [facility] T PROTEIN 7.5 6.3 - 8.2 g/dL [facility] ALBUMIN 4.2 3.5 - 5.0 g/dL [facility] ALK PHOS 93 34 - 122 U/L [facility] ALT(SGPT) 12 9 - 51 U/L [facility] AST(SGOT) 16 13 - 40 U/L [facility] Specimen Blood - ARM, LEFT Performing Organization Address City/[facility] Ph one Number [facility] CLIA: [id number], [address] [place], [place] [address] [facility] * Troponin I (04/17/2019 2:03 PM CDT) TROPONIN I 0.001 <=0.034 ng/mL [facility] Specimen Blood - ARM, LEFT Narrative Performed At Equal or Less than 0.034 ng/ml---Normal [facility] Note: Cardiac troponin begins to rise 3-4 hours after the onset of ischemia. [facility] Repeat in 4-6 hours if the sample was d rawn within 3-4 hours of the onset of the ROSLYN symptom and found normal. Between 0.035 and [...] patient's use of biotin. Performing Organization Address City/[facility] Ph one Number [facility] CLIA: [id number], [address] [place], [place] [address] [facility] * Lipase Serum (04/17/2019 2:03 PM CDT) LIPASE 86 0 - 220 U/L [facility] Specimen Blood - ARM, LEFT Performing Organization Address City/[facility] Ph one Number [facility] CLIA: [id number], [address] [place], [place] [address] [facility] * EKG-12 LEAD (04/17/2019 1:48 PM CDT) Specimen Performing Organization Address City/State/Zipcode Ph one Number [facility] * EMERGENCY SERVICES AGREEMENTS AND AUTHORIZATIONS (04/17/2019 12:01 AM CDT) Specimen Performing Organization Address City/State/Zipcode Ph one Number HIM from Last 3 Months Insurance Type Payer Benefit Subscriber ID Effective Phone Address Plan / Dates Group Medicare Adv HMO [facility] [id number] 2018- MANAGED MEDICARE HEALTHCARE Present DUAL COMPLETE HMO [facility] [employer] [id number] 2018- [address] [employer] H Present [id number] [place] [address] Medicaid [place] MEDICAID xxxxxxxxx 2019-P [phone] [address] [place] resent [id number] [place] [address] amily (Home) [place] [address] [facility] 1965 [address] [address] Health (Home) [place] [address] Advance Directives Patient Manager Of Case Explanation Type Date Recorded 0 Advance Directives 08/08/2013 8:00 AM and Living Will Power of Reference Services Head 08/08/2013 8:00 AM
--- OUTSIDE RECORDS SUMMARY | 2019-12-13 15:30 | XMS REPORT | Clinical Summary ---
Author Author [facility] - [facility] Organization [facility] - [facility] Address Unknown Phone Unavailable Care Team Providers Care Pulmonologist Intensivist Name Role Phone Ovidio Clarke MD PCP [...] colon Overview: Added automatically from request for [employer] [id number] Cervical spondylosis with radiculopathy 01/01/2019 Overview: Added automatically from request for [employer] [id number] Mixed hyperlipidemia 08/13/2018 Overview: LDL 140 07/17/2018 Left tennis elbow 06/17/2018 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 Overview: R Avulsion fracture of lateral epicondyle of humerus 0 11/14/2017 Painful patella, unspecified laterality 11/05/2017 S/P revision of total hip 09/18/2017 Colon cancer screening 05/24/2017 Overview: Added automatically from request for [employer] [id number] Hematemesis with nausea 05/24/2017 Overview: Added automatically from request for [employer] [id number] Nausea and vomiting, intractability of vomiting not s pecified, unspecified 05/24/2017 vomiting type Overview: Added automatically from request for [employer] [id number] ANJELICA (obstructive sleep apnea) 05/10/2017 Obesity (BMI 30-39.9) 05/01/2017 Microhematuria 02/14/2017 Complex tear of medial meniscus of right knee as curr ent injury, initial 01/18/2017 encounter Overview: Added automatically from request for jimmy solorio [id number] Elevated MCV 07/25/2016 Overview: 103.4 07/22/2016 Muscle [...] lobe nodular opacitiy on chest xray at [facility] 05/22/2015 Hiatus hernia syndrome 04/09/2015 Overview: [...] lower leg 11/25/2013 Overview: ICD10 Diagnosis [employer] Knee crepitus 11/25/2013 Genu valgum, acquired 11/25/2013 Overview: ICD10 Diagnosis [employer] Patellofemoral misalignment with pain 11/25/2013 Primary [...] 11/16/2010 Headache 04/08/2010 Overview: ICD10 Diagnosis [employer] Nonerosive nonspecific gastritis 04/08/2010 Overview: EGD Dr. Lloyd Glossitis 02/23/2010 Tobacco use disorder 02/23/2010 Menorrhagia 05/19/2009 Vision blurred 05/19/2009 Acute upper respiratory infection 08/14/2008 Overview: ICD10 Diagnosis [employer] Acute pharyngitis 08/14/2008 Screening for malignant neoplasm of cervix 9 Overview: ICD10 Diagnosis [employer] Breast screening 07/16/2008 Overview: ICD10 Diagnosis [employer] Urinary tract infection, site not specified 04/29/20 08 Backache 06/02/2007 Overview: Lower back pain ICD10 Diagnosis [employer] Pain in joint 06/02/2007 Overview: ICD10 Diagnosis [employer] Cervicalgia 06/02/2007 Myalgia and myositis 06/02/2007 Overview: Bilateral trapezius pain ICD10 Diagnosis [employer] Absence of menstruation 04/25/2007 Anemia 03/25/2007 Overview: ICD10 Diagnosis [employer] Helicobacter pylori infection 06/11/2006 Overview: ICD10 Diagnosis [employer] Acute peptic ulcer 06/11/2006 Overview: ICD10 Diagnosis [employer] Abdominal pain 04/25/2006 Overview: ICD10 Diagnosis [employer] Ankylosing spondylitis 04/25/2006 Vaginitis and vulvovaginitis 04/25/2006 Overview: ICD10 Diagnosis [employer] Other, mixed, or unspecified nondependent drug abuse, continuous 11/30/2005 Resolved Problems Problem Noted Date Resolved Date Arm laceration, right, subsequent encounter 04/13/2014 04/13/2014 Syncope and collapse 02/27/2007 06/28/2014 Bipolar I disorder, most recent episode (or current) unspec ified 01/03/2007 01/23/2018 Overview: Dr. 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 11/30/2005 02/11/2018 Overview: ICD10 Diagnosis [employer] Encounters Care Team Description Date Type Specialty Ovidio Clarke Jr., MD Rx Concern/Question 07/04/2019 Telephone Family Medicine Omar Clay DO 3, Jennifer Adult Infusion Nurse Ankylosing spondylitis, unspecified site of spine (Primary Dx) 06/20/2019 Nurse Visit Infusion Therapy Doctor Unassigned, [place] 06/20/2019 Orders Only Ovidio Clarke Jr., MD [...] ) 06/18/2019 Telephone Orthopedic Surgery Doctor Unassigned, [place] 06/18/2019 Orders Only Zia Resendez MD Notification 06/11/2019 Telephone Orthopedic Surgery Ovidio Clarke Jr., MD Refill Request 06/06/2019 Refill Family Medicine Sebastian Doe MD Cervical spondylosis with radiculopathy (Primary Dx); Chronic pain syndrome; Carpal tunnel syndrome of right wrist; Ankylosing spondylitis, unspecified site of spine 06/04/2019 Office Visit Pain Medicine Doctor Unassigned, [place] 06/04/2019 Orders Only Zia Resendez MD Bilateral [...] Comments Vital Sign 125/73 06/20/2019 11:09 AM PORTFOLIO ASSISTANT Blood Pressure 99 06/20/2019 11:09 AM PORTFOLIO ASSISTANT Pulse 37.1 C (98.8 F) 06/20/2019 11:09 AM PORTFOLIO ASSISTANT Temperature 18 06/20/2019 11:09 AM PORTFOLIO ASSISTANT Respiratory Rate 98% 06/20/2019 11:09 AM PORTFOLIO ASSISTANT Oxygen Saturation - - Inhaled Oxygen Concentration 87 kg (191 lb 12.8 oz) 06/30/2019 2:40 PM PORTFOLIO ASSISTANT Weight 165.1 cm (5' 5") 06/11/2019 9:04 AM PORTFOLIO ASSISTANT Height 31.92 06/11/2019 9:04 AM PORTFOLIO ASSISTANT Body Mass Index Plan of Treatment Care Team Description Date Type Specialty Zia Resendez MD [address] [facility] [id number] [place], [place] [address] 07/15/2019 Hospital Surgery Encounter Sherley Ding MD [id number] [place], [place] [id number] 07/15/2019 Anesthesia Surgery Event Zia Resendez MD [address] [id number] [place], [place] [id number] OPEN CARPAL TUNNEL RELEASE 07/15/2019 Surgery Surgery Sebastian Doe [facility] [address] [facility] [facility] [id number] [place], [place] [id number] 07/29/2019 Office Visit Pain Medicine 3, Jennifer Adult Infusion Nurse 08/15/2019 Nurse Visit [place] [address] [place] [address] 09/18/2019 Office Visit Family Medicine [...] Head, Donal Uhr Bipolar BIPOLAR Right: Hip Pickford [id number] #[id number] - S0 head Implanted: Qty: 1 on 09/18/2017 by Sebastian Bunn MD at [facility] 07/07/2021 1023-12 / [id number] / [id number] Cancellous Cubes, Community Tissue BONE Right: Hip [facility] Freeze Dried 30 Cc Tissue #1023-12 - [id number] Services Implanted: Qty: 1 on 09/18/2017 by Sebastian Bunn MD at [facility] 03/08/2018 2018-40 / [id number] / [id number] Dbm Putfinesse Chaparros 10 Cts #2018-40 BONE Right: Hip [facility] - [id number] Tissue Implanted: Qty: 1 on 09/18/2017 by Services Sebastian Bunn MD at [facility] 04/07/2022 1365-28-720 / 0 / [id number] Delta Ceramic Femoral Head 28mm +5 Head Right: Hip Depuy 06/21 Taper Depuy Ref#[id number] Synthes Implanted: Qty: 1 on 09/18/2017 by Sebastian Bunn MD at [facility] 03/29/2022 [id number] / 0 / [id number] Insert, Donal Trident 0deg 44mm Liner Right: Hip Donal #[id number] Implanted: Qty: 1 on 09/18/2017 by Sebastian Bunn MD at [facility] 04/24/2022 5260-5-050 / 0 / [id number] Screw Osteolock 3.[address] SCREW Right: Hip Pickford Cancellous 50mm Donal Ref#[id number] Implanted: Qty: 2 on 09/18/2017 by Sebastian Bunn MD at [facility] 06/01/2022 5260-5-020 / 0 / [id number] Screw Ostelock 3.[address] SCREW Right: Hip Donal Cancellous 20mm Pickford Ref#[id number] Implanted: Qty: 1 on 09/18/2017 by Sebastian Bunn MD at [facility] 06/01/2022 5260-5-016 / 0 / [id number] Screw Osteolock 3.[address] SCREW Right: Hip Donal Cancellous 18mm Pickford Ref#[id number] Implanted: Qty: 1 on 09/18/2017 by Sebastian Bunn MD at [facility] 01/02/2022 [id number] / 0 / [id number] Shell, Pickford Tritanium Revision Shell Right: Hip Donal Acetabular #[id number] - S0 Implanted: Qty: 1 on 09/18/2017 by Sebastian Bunn MD at [facility] Procedures Comments Procedure Name Priority Date/Time Associated Diag nosis EXTERNAL PROVIDER RECORDS Routine 06/20/2019 12:01 AM PORTFOLIO ASSISTANT FLU VACC ([id number]), 6+ Routine 06/19/2019 Influ tin vaccine needed MONTHS, IM, QUAD 11:21 AM PORTFOLIO ASSISTANT CONSENT/REFUSAL FOR Routine 06/18/2019 DIAGNOSIS AND TREATMENT 8:10 AM PORTFOLIO ASSISTANT ASSIGNMENT OF BENEFITS Routine 06/18/2019 8:09 AM PORTFOLIO ASSISTANT PATIENT QUESTIONNAIRE Routine 06/04/2019 12:01 AM PORTFOLIO ASSISTANT MR CERVICAL SPINE WO Routine 05/23/2019 Cervical radiculopathy CONTRAST 2:36 PM PORTFOLIO ASSISTANT XR ABDOMEN ACUTE SERIES STAT 04/17/2019 Epigas tric pain 2:33 PM CDT CBC WITH DIFFERENTIAL STAT 04/17/2019 Epigastr ic pain 2:03 PM CDT TROPONIN I STAT 04/17/2019 Epigastric pain 2:03 PM CDT LIPASE STAT 04/17/2019 Epigastric pain 2:03 PM CDT HEPATIC FUNCTION PANEL STAT 04/17/2019 Epigast eunice pain (34647) (ALB,T.PRO,BILI 2:03 PM CDT T,BU/BC,ALT,AST,ALK PHOS) BASIC [...] * EXTERNAL PROVIDER RECORDS (06/20/2019 12:01 AM PORTFOLIO ASSISTANT) Only the most recent of 2 results within the time period is included. Specimen Performing Organization Address [facility] one Number HIM * CONSENT/REFUSAL FOR DIAGNOSIS AND TREATMENT (06/18/2019 8:10 AM PORTFOLIO ASSISTANT) Specimen Performing Organization Address [facility] one Number HIM * ASSIGNMENT OF BENEFITS (06/18/2019 8:09 AM PORTFOLIO ASSISTANT) Specimen Performing Organization Address [facility] one Number HIM * PATIENT QUESTIONNAIRE (06/04/2019 12:01 AM PORTFOLIO ASSISTANT) Specimen Performing Organization Address [facility] one Number HIM * MR CERVICAL SPINE WO CONTRAST (05/23/2019 2:36 PM PORTFOLIO ASSISTANT) Specimen Impressions Performed At Impression: PACS/VR/DOSE Multilevel [...] Results Inft User - 05/23/2019 8:53 PM PORTFOLIO ASSISTANT Exam: MR CERVICAL SPINE WO CONTRAST Clinical [...] bony abnormalities are noted. Scattered pelvic phleboliths. [place] are seen in the left neck regio [...] bony abnormalities are noted. Scattered pelvic phleboliths. [place] are seen in the left neck region, [...] 9.29 4.30 - 11.10 [facility] 10*3/L [facility] RBC 4.10 3.93 - 5.25 10*6/L [facility] HGB 13.9 11.6 - 15.0 g/dL [facility] HCT 41.3 35.7 - 45.2 % [facility] MCV 100.7 (H) 80.6 - 95.5 fL [facility] MCH 33.9 (H) 25.9 - 32.8 pg [facility] MCHC 33.7 31.6 - 35.1 g/dL [facility] RY [facility] RDW-SD 49.2 39.0 - 49.9 fL [facility] RDW-CV 13.3 12.0 - 15.5 % [facility] PLT 318 166 - 358 10*3/L [facility] MPV 10.1 9.5 - 12.9 fL [facility] NRBC/100 WBC 0.0 0.0 - 10.0 /100 WBCs [facility] NRBC x10^3 <0.01 10*3/L [facility] GRAN MAT (NEUT) 58.5 % [facility] Y % [facility] IMM GRAN % 0.20 % [facility] LYMPH % 32.3 % [facility] MONO % 7.4 % [facility] EOS % 1.4 % [facility] BASO % 0.2 % [facility] GRAN MAT 5.43 1.88 - 7.09 10*3/uL [facility] x10^3(ANC) [facility] IMM GRAN x10^3 <0.03 0.00 - 0.06 10*3/uL [facility] LYMPH x10^3 3.00 1.32 - 3.29 10*3/uL [facility] MONO x10^3 0.69 0.33 - 0.92 10*3/uL [facility] EOS x10^3 0.13 0.03 - 0.39 10*3/uL [facility] BASO x10^3 <0.03 0.01 - 0.07 10*3/uL [facility] Specimen Blood - ARM, LEFT Performing Organization Address City/[facility] Ph one Number [facility] CLIA: [id number], [address] [place], [place] [address] [facility] * Basic Metabolic Panel (NA, K, CL, CO2, GLUCOSE, BUN, CREATININE, CA) (04/17/2019 2:03 PM CDT) NA 137 135 - 145 mmol/L [facility] RY [facility] K 4.1 3.5 - 5.0 mmol/L [facility] RY [facility] CL 104 98 - 108 mmol/L [facility] Y [facility] CO2 TOTAL 24 23 - 31 mmol/L [facility] AGAP 9 2 - 16 [facility] BUN 12 7 - 23 mg/dL [facility] GLUCOSE 92 70 - 110 mg/dL [facility] CREATININE 0.61 0.50 - 1.04 mg/dL [facility] CALCIUM 9.5 8.6 - 10.6 mg/dL [facility] R[facility] eGFR 102.2 mL/min/1.73m2 [facility] Calculation [facility] ([facility]) eGFR 123.9 mL/min/1.73m2 [facility] Specimen Blood - ARM, LEFT Narrative Performed At Association of Glomerular Filtration Rate (GFR) and S taging of Kidney Disease* [facility] + + +------ + [facility] | GFR (mL/min/1.73 m2) | With Kidney Damage | [facility] Kidney Damage [place] + + -------+ + | >90 | [...] abnormalities in imaging tests). Performing Organization Address City/State/[facility] Ph one Number [facility] CLIA: [id number], [address] [place], [place] [address] [facility] * Hepatic Function Panel (ALB, T.PRO, BILI T, BU/BC, ALT, AST, ALK PHOS) (04/17/2019 2:03 PM CDT) TOTAL BILI 0.3 0.1 - 1.1 mg/dL [facility] BILI UNCON 0.0 (L) 0.1 - 1.1 mg/dL [facility] BILI CONJ 0.0 0.0 - 0.3 mg/dL [facility] T PROTEIN 7.5 6.3 - 8.2 g/dL [facility] ALBUMIN 4.2 3.5 - 5.0 g/dL [facility] ALK PHOS 93 34 - 122 U/L [facility] ALT(SGPT) 12 9 - 51 U/L [facility] AST(SGOT) 16 13 - 40 U/L [facility] Specimen Blood - ARM, LEFT Performing Organization Address City/[facility] Ph one Number [facility] CLIA: [id number], [address] [place], [place] [address] [facility] * Troponin I (04/17/2019 2:03 PM CDT) TROPONIN I 0.001 <=0.034 ng/mL [facility] Specimen Blood - ARM, LEFT Narrative Performed At Equal or Less than 0.034 ng/ml---Normal [facility] Note: Cardiac troponin begins to rise 3-4 hours after the onset of ischemia. [facility] Repeat in 4-6 hours if the sample was d rawn within 3-4 hours of the onset of the [place] symptom and found normal. Between 0.035 and [...] patient's use of biotin. Performing Organization Address City/[facility] Ph one Number [facility] CLIA: [id number], [address] [place], [place] [address] [facility] * Lipase Serum (04/17/2019 2:03 PM CDT) LIPASE 86 0 - 220 U/L [facility] Specimen Blood - ARM, LEFT Performing Organization Address City/[facility] Ph one Number [facility] CLIA: [id number], [address] [place], [place] [address] [facility] * EKG-12 LEAD (04/17/2019 1:48 PM CDT) Specimen Performing Organization Address City/State/Zipcode Ph one Number [facility] * EMERGENCY SERVICES AGREEMENTS AND AUTHORIZATIONS (04/17/2019 12:01 AM CDT) Specimen Performing Organization Address City/State/Zipcode Ph one Number HIM from Last 3 Months Insurance Type Payer Benefit Subscriber ID Effective Phone Address Plan / Dates Group Medicare Adv HMO [facility] [id number] 2018- MANAGED MEDICARE HEALTHCARE Present DUAL COMPLETE HMO [facility] [id number] 2018- [address] H Present [address] [place] [address] Medicaid [place] MEDICAID xxxxxxxxx 2019-P [phone] [address] [place] [id number] [place] [address] amily (Home) [place] [address] [facility] 1965 [address] [address] Health (Home) [place] [address] Advance Directives 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
--- OUTSIDE RECORDS SUMMARY | 2019-12-13 15:30 | XMS REPORT | Clinical Summary ---
Author Author [facility] - Health Organization [facility] - Health Address Unknown Phone Unavailable Care Team Providers Care Bi Analyst Name Role Phone Ovidio Clarke MD [...] colon Overview: Added automatically from request for Keep[employer] [id number] Cervical spondylosis with radiculopathy 01/01/2019 Overview: Added automatically from request for Keep[employer] [id number] Mixed hyperlipidemia 08/13/2018 Overview: LDL 140 07/17/2018 Left tennis elbow 06/17/2018 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 Overview: R Avulsion fracture of lateral epicondyle of humerus 0 11/14/2017 Painful patella, unspecified laterality 11/05/2017 S/P revision of total hip 09/18/2017 Colon cancer screening 05/24/2017 Overview: Added automatically from request for Keep[employer] [id number] Hematemesis with nausea 05/24/2017 Overview: Added automatically from request for Keep[employer] [id number] Nausea and vomiting, intractability of vomiting not s pecified, unspecified 05/24/2017 vomiting type Overview: Added automatically from request for Keepio [id number] ANJELICA (obstructive sleep apnea) 05/10/2017 Obesity (BMI 30-39.9) 05/01/2017 Microhematuria 02/14/2017 Complex tear of medial meniscus of right knee as curr ent injury, initial 01/18/2017 encounter Overview: Added automatically from request for jimmy solorio [id number] Elevated MCV 07/25/2016 Overview: 103.4 07/22/2016 Muscle [...] lobe nodular opacitiy on chest xray at [facility] 05/22/2015 Hiatus hernia syndrome 04/09/2015 Overview: [...] lower leg 11/25/2013 Overview: ICD10 Diagnosis Term Circus Hand Utility Knee crepitus 11/25/2013 Genu valgum, acquired 11/25/2013 Overview: ICD10 Diagnosis Term [employer]us Hand Utility Patellofemoral misalignment with pain 11/25/2013 [...] 11/16/2010 Headache 04/08/2010 Overview: ICD10 Diagnosis Term [employer]us Hand Utility Nonerosive nonspecific gastritis 04/08/2010 Overview: EGD Dr. Lloyd Glossitis 02/23/2010 Tobacco use disorder 02/23/2010 Menorrhagia 05/19/2009 Vision blurred 05/19/2009 Acute upper respiratory infection 08/14/2008 Overview: ICD10 Diagnosis Term Circus Hand Utility Acute pharyngitis 08/14/2008 Screening for malignant neoplasm of cervix 9 Overview: ICD10 Diagnosis Term Circus Hand Utility Breast screening 07/16/2008 Overview: ICD10 Diagnosis Term Circus Hand Utility Urinary tract infection, site not specified 04/29/20 08 Backache 06/02/2007 Overview: Lower back pain ICD10 Diagnosis Term Circus Hand Utility Pain in joint 06/02/2007 Overview: ICD10 Diagnosis Term [employer]us Hand Utility Cervicalgia 06/02/2007 Myalgia and myositis 06/02/2007 Overview: Bilateral trapezius pain ICD10 Diagnosis Term Circus Hand Utility Absence of menstruation 04/25/2007 Anemia 03/25/2007 Overview: ICD10 Diagnosis Term [employer] Hand Utility Helicobacter pylori infection 06/11/2006 Overview: ICD10 Diagnosis Term Circus Hand Utility Acute peptic ulcer 06/11/2006 Overview: ICD10 Diagnosis Term Circus Hand Utility Abdominal pain 04/25/2006 Overview: ICD10 Diagnosis Term Circus Hand Utility Ankylosing spondylitis 04/25/2006 Vaginitis and vulvovaginitis 04/25/2006 Overview: ICD10 Diagnosis Term Circus Hand Utility Other, mixed, or unspecified nondependent drug abuse, continuous 11/30/2005 Resolved Problems Problem Noted Date Resolved Date Arm laceration, right, subsequent encounter 04/13/2014 04/13/2014 Syncope and collapse 02/27/2007 06/28/2014 Bipolar I disorder, most recent episode (or current) unspec ified 01/03/2007 01/23/2018 Overview: Dr. 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 11/30/2005 02/11/2018 Overview: ICD10 Diagnosis Term Circus Hand Utility Encounters Care Team Description Date Type Specialty Ovidio Clarke Jr., MD Rx Concern/Question 07/04/2019 Telephone Family Medicine Omar Clay DO 3, Jennifer Adult Infusion Nurse Ankylosing spondylitis, unspecified site of spine (Primary Dx) 06/20/2019 Nurse Visit Infusion Therapy Doctor Unassigned, [place] 06/20/2019 Orders Only Ovidio Clarke Jr., MD [...] ) 06/18/2019 Telephone Orthopedic Surgery Doctor Unassigned, [place] 06/18/2019 Orders Only Zia Resendez MD Notification 06/11/2019 Telephone Orthopedic Surgery Ovidio Clarke Jr., MD Refill Request 06/06/2019 Refill Family Medicine Sebastian Doe MD Cervical spondylosis with radiculopathy (Primary Dx); Chronic pain syndrome; Carpal tunnel syndrome of right wrist; Ankylosing spondylitis, unspecified site of spine 06/04/2019 Office Visit Pain Medicine Doctor Unassigned, [place] 06/04/2019 Orders Only Zia Resendez MD Bilateral [...] Comments Vital Sign 125/73 06/20/2019 11:09 AM CARE ASST Blood Pressure 99 06/20/2019 11:09 AM CARE ASST Pulse 37.1 C (98.8 F) 06/20/2019 11:09 AM CARE ASST Temperature 18 06/20/2019 11:09 AM CARE ASST Respiratory Rate 98% 06/20/2019 11:09 AM CARE ASST Oxygen Saturation - - Inhaled Oxygen Concentration 87 kg (191 lb 12.8 oz) 06/30/2019 2:40 PM CARE ASST Weight 165.1 cm (5' 5") 06/11/2019 9:04 AM CARE ASST Height 31.92 06/11/2019 9:04 AM CARE ASST Body Mass Index Plan of Treatment Care Team Description Date Type Specialty Zia Resendez MD [address] [facility] [id number] [place], [place] [id number] 07/15/2019 Hospital Surgery Encounter Sherley Ding MD [address] [id number] [place], [place] [id number] 07/15/2019 Anesthesia Surgery Event Zia Resendez MD [address] [id number] [place], [place] [id number] OPEN CARPAL TUNNEL RELEASE 07/15/2019 Surgery Surgery [facility] Doe [facility] [address] [facility] [id number] [place], [place] [address] 07/29/2019 Office Visit Pain Medicine 3, Jennifer Adult Infusion Nurse 08/15/2019 Nurse [place] [address] [place] [address] 09/18/2019 Office Visit Family Medicine [...] Head, Donal Uhr Bipolar BIPOLAR Right: Hip [place] [id number] #[id number] - S0 head Implanted: Qty: 1 on 09/18/2017 by Sebastian Bunn MD at [facility] 07/07/2021 1023-12 / [id number] / [id number] Cancellous Cubes, Community Tissue BONE Right: Hip Community [facility] Freeze Dried 30 Cc Tissue #1023-12 - [id number] Services Implanted: Qty: 1 on 09/18/2017 by Sebastian Bunn MD at [facility] 03/08/2018 2018-40 / [id number] / [id number] Dbm Putfinesse Chaparros 10 Cts #2018-40 BONE Right: Hip [facility] - [id number] Tissue Implanted: Qty: 1 on 09/18/2017 by Services Sebastian Bunn MD at [facility] 04/07/2022 [id number] / 0 / [id number] Delta Ceramic Femoral Head 28mm +5 Head Right: Hip Depuy 06/21 Taper Depuy Ref#[id number] Synthes Implanted: Qty: 1 on 09/18/2017 by Sebastian Bunn MD at [facility] 03/29/2022 623-00-44F / 0 / [id number] Insert, Donal Trident 0deg 44mm Liner Right: Hip Donal #[id number] Implanted: Qty: 1 on 09/18/2017 by Sebastian Bunn MD at [facility] 04/24/2022 5260-5-050 / 0 / [id number] Screw Osteolock 3.[address] SCREW Right: Hip [place] Cancellous 50mm Donal Ref#[id number] Implanted: Qty: 2 on 09/18/2017 by Sebastian Bunn MD at [facility] 06/01/2022 5260-5-020 / 0 / [id number] Screw Ostelock 3.[address] SCREW Right: Hip Donal Cancellous 20mm [place] Ref#[id number] Implanted: Qty: 1 on 09/18/2017 by Sebastian Bunn MD at [facility] 06/01/2022 5260-5-016 / 0 / [id number] Screw Osteolock 3.[address] SCREW Right: Hip Donal Cancellous 18mm [place] Ref#[id number] Implanted: Qty: 1 on 09/18/2017 by Sebastian Bunn MD at [facility] 01/02/2022 [id number] / 0 / [id number] Shell, [place] Tritanium Revision Shell Right: Hip Donal Acetabular #[id number] - S0 Implanted: Qty: 1 on 09/18/2017 by Sebastian Bunn MD at [facility] Procedures Comments Procedure Name Priority Date/Time Associated Diag nosis EXTERNAL PROVIDER RECORDS Routine 06/20/2019 12:01 AM CARE ASST FLU VACC ([id number]), 6+ Routine 06/19/2019 Influ tin vaccine needed MONTHS, IM, QUAD 11:21 AM CARE AS[facility] CONSENT/REFUSAL FOR Routine 06/18/2019 DIAGNOSIS AND TREATMENT 8:10 AM CARE AS[facility] ASSIGNMENT OF BENEFITS Routine 06/18/2019 8:09 AM CARE AS[facility] PATIENT QUESTIONNAIRE Routine 06/04/2019 12:01 AM CARE ASST MR CERVICAL SPINE WO Routine 05/23/2019 Cervical radiculopathy CONTRAST 2:36 PM CARE ASST XR ABDOMEN ACUTE SERIES STAT 04/17/2019 Epigas tric pain 2:33 PM CDT CBC WITH DIFFERENTIAL STAT 04/17/2019 Epigastr ic pain 2:03 PM CDT TROPONIN I STAT 04/17/2019 Epigastric pain 2:03 PM CDT LIPASE STAT 04/17/2019 Epigastric pain 2:03 PM CDT HEPATIC FUNCTION PANEL STAT 04/17/2019 Epigast eunice pain (33084) (ALB,T.PRO,BILI 2:03 PM CDT T,BU/BC,ALT,AST,ALK PHOS) BASIC [...] * EXTERNAL PROVIDER RECORDS (06/20/2019 12:01 AM CARE ASST) Only the most recent of 2 results within the time period is included. Specimen Performing Organization Address [facility] one Number HIM * CONSENT/REFUSAL FOR DIAGNOSIS AND TREATMENT (06/18/2019 8:10 AM CARE ASST) Specimen Performing Organization Address [facility] one Number HIM * ASSIGNMENT OF BENEFITS (06/18/2019 8:09 AM CARE ASST) Specimen Performing Organization Address [facility] one Number HIM * PATIENT QUESTIONNAIRE (06/04/2019 12:01 AM CARE ASST) Specimen Performing Organization Address [facility] one Number HIM * MR CERVICAL SPINE WO CONTRAST (05/23/2019 2:36 PM CARE ASST) Specimen Impressions Performed At Impression: PACS/VR/DOSE Multilevel [...] Results Inft User - 05/23/2019 8:53 PM CARE ASST Exam: MR CERVICAL SPINE WO CONTRAST Clinical [...] bony abnormalities are noted. Scattered pelvic phleboliths. [place] are seen in the left neck regio [...] bony abnormalities are noted. Scattered pelvic phleboliths. [place] are seen in the left neck region, [...] 4.30 - 11.10 [facility] 10*3/L [facility] RBC 4.10 3.93 - 5.25 10*6/L [facility] HGB 13.9 11.6 - 15.0 g/dL [facility] HCT 41.3 35.7 - 45.2 % [facility] MCV 100.7 (H) 80.6 - 95.5 fL [facility] MCH 33.9 (H) 25.9 - 32.8 pg [facility] MCHC 33.7 31.6 - 35.1 g/dL [facility] RY [facility] RDW-SD 49.2 39.0 - 49.9 fL [facility] RDW-CV 13.3 12.0 - 15.5 % [facility] PLT 318 166 - 358 10*3/L [facility] MPV 10.1 9.5 - 12.9 fL [facility] NRBC/100 WBC 0.0 0.0 - 10.0 /100 WBCs [facility] NRBC x10^3 <0.01 10*3/L [facility] GRAN MAT (NEUT) 58.5 % [facility] Y % [facility] IMM GRAN % 0.20 % [facility] LYMPH % 32.3 % [facility] MONO % 7.4 % [facility] EOS % 1.4 % [facility] BASO % 0.2 % [facility] GRAN MAT 5.43 1.88 - 7.09 10*3/uL [facility] x10^3(ANC) [facility] IMM GRAN x10^3 <0.03 0.00 - 0.06 10*3/uL [facility] LYMPH x10^3 3.00 1.32 - 3.29 10*3/uL [facility] MONO x10^3 0.69 0.33 - 0.92 10*3/uL [facility] EOS x10^3 0.13 0.03 - 0.39 10*3/uL [facility] BASO x10^3 <0.03 0.01 - 0.07 10*3/uL [facility] Specimen Blood - ARM, LEFT Performing Organization Address City/[facility] Ph one Number [facility] CLIA: [id number], [address] [place], [place] [address] [facility] * Basic Metabolic Panel (NA, K, CL, CO2, GLUCOSE, BUN, CREATININE, CA) (04/17/2019 2:03 PM CDT) NA 137 135 - 145 mmol/L [facility] RY [facility] K 4.1 3.5 - 5.0 mmol/L [facility] RY [facility] CL 104 98 - 108 mmol/L [facility] Y [facility] CO2 TOTAL 24 23 - 31 mmol/L [facility] AGAP 9 2 - 16 [facility] BUN 12 7 - 23 mg/dL [facility] GLUCOSE 92 70 - 110 mg/dL [facility] CREATININE 0.61 0.50 - 1.04 mg/dL [facility] CALCIUM 9.5 8.6 - 10.6 mg/dL [facility] RY [facility] eGFR 102.2 mL/min/1.73m2 [facility] Calculation [facility] (Non-[facility]) eGFR 123.9 mL/min/1.73m2 [facility] Calculation [facility] Specimen Blood - ARM, LEFT Narrative Performed At Association of Glomerular Filtration Rate (GFR) and S taging of Kidney Disease* [facility] + + +------ + [facility] | GFR (mL/min/1.73 m2) | With Kidney Damage | [facility] Kidney Damage [place] + + -------+ + | >90 | [...] abnormalities in imaging tests). Performing Organization Address City/State/[facility] [place] Ph one Number [facility] CLIA: [id number], [address] [place], [place] [address] [facility] * Hepatic Function Panel (ALB, T.PRO, BILI T, BU/BC, ALT, AST, ALK PHOS) (04/17/2019 2:03 PM CDT) TOTAL BILI 0.3 0.1 - 1.1 mg/dL [facility] BILI UNCON 0.0 (L) 0.1 - 1.1 mg/dL [facility] LABORATOR [facility] BILI CONJ 0.0 0.0 - 0.3 mg/dL [facility] LABORATOR [facility] T PROTEIN 7.5 6.3 - 8.2 g/dL [facility] ALBUMIN 4.2 3.5 - 5.0 g/dL [facility] ALK PHOS 93 34 - 122 U/L [facility] ALT(SGPT) 12 9 - 51 U/L [facility] AST(SGOT) 16 13 - 40 U/L [facility] Specimen Blood - ARM, LEFT Performing Organization Address City/[facility] Ph one Number [facility] CLIA: [id number], [address] [place], [place] [address] [facility] * Troponin I (04/17/2019 2:03 PM CDT) TROPONIN I 0.001 <=0.034 ng/mL [facility] Specimen Blood - ARM, LEFT Narrative Performed At Equal or Less than 0.034 ng/ml---Normal [facility] Note: Cardiac troponin begins to rise 3-4 hours after the onset of ischemia. [facility] Repeat in 4-6 hours if the sample was d rawn within 3-4 hours of the onset of the [place] symptom and found normal. Between 0.035 and [...] patient's use of biotin. Performing Organization Address City/[facility] Ph one Number [facility] CLIA: [id number], [address] [place], [place] [address] [facility] * Lipase Serum (04/17/2019 2:03 PM CDT) LIPASE 86 0 - 220 U/L [facility] Specimen Blood - ARM, LEFT Performing Organization Address City/[facility] Ph one Number [facility] CLIA: [id number], [address] [place], [place] [address] [facility] * EKG-12 LEAD (04/17/2019 1:48 PM CDT) Specimen Performing Organization Address City/State/Zipcode Ph one Number [facility] * EMERGENCY SERVICES AGREEMENTS AND AUTHORIZATIONS (04/17/2019 12:01 AM CDT) Specimen Performing Organization Address City/State/Zipcode Ph one Number HIM from Last 3 Months Insurance Type Payer Benefit Subscriber ID Effective Phone Address Plan / Dates Group Medicare Adv HMO [facility] [id number] 2018- MANAGED MEDICARE HEALTHCARE Present DUAL COMPLETE HMO [facility] [employer] [id number] 2018- [address] H Present [id number] [place] [address] Medicaid [place] MEDICAID xxxxxxxxx 2019-P [phone] [address] [place] [id number] [place] [address] amily (Home) [place] [address] [facility] 1965 [address] [address] Health (Home) [place] [address] Advance Directives 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
--- OUTSIDE RECORDS SUMMARY | 2019-12-13 15:30 | XMS REPORT | Clinical Summary ---
Author Author [facility] - Health Organization [facility] - Health Address Unknown Phone Unavailable Care Team Providers Care Radio Repairer Name Role Phone Ovidio Clarke MD PCP [...] colon Overview: Added automatically from request for [email or web address] [id number] Cervical spondylosis with radiculopathy 01/01/2019 Overview: Added automatically from request for [email or web address] [id number] Mixed hyperlipidemia 08/13/2018 Overview: LDL 140 07/17/2018 Left tennis elbow 06/17/2018 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 Overview: R Avulsion fracture of lateral epicondyle of humerus 0 11/14/2017 Painful patella, unspecified laterality 11/05/2017 S/P revision of total hip 09/18/2017 Colon cancer screening 05/24/2017 Overview: Added automatically from request for [email or web address] [id number] Hematemesis with nausea 05/24/2017 Overview: Added automatically from request for [email or web address] [id number] Nausea and vomiting, intractability of vomiting not s pecified, unspecified 05/24/2017 vomiting type Overview: Added automatically from request for [email or web address] [id number] ANJELICA (obstructive sleep apnea) 05/10/2017 Obesity (BMI 30-39.9) 05/01/2017 Microhematuria 02/14/2017 Complex tear of medial meniscus of right knee as curr ent injury, initial 01/18/2017 encounter Overview: Added automatically from request for jimmy [email or web address] [id number] Elevated MCV 07/25/2016 Overview: 103.4 07/22/2016 Muscle [...] lobe nodular opacitiy on chest xray at [facility] 05/22/2015 Hiatus hernia syndrome 04/09/2015 Overview: EGD 03/23/2015 [facility] screening mammogram 01/06/2015 Immunization deficiency 10/09/2014 Overview: [...] lower leg 11/25/2013 Overview: ICD10 Diagnosis Term Event Planning Intern Utility Knee crepitus 11/25/2013 Genu valgum, acquired 11/25/2013 Overview: ICD10 Diagnosis Term Event Planning Intern Utility Patellofemoral misalignment with pain 11/25/2013 Primary [...] 11/16/2010 Headache 04/08/2010 Overview: ICD10 Diagnosis Term Event Planning Intern Utility Nonerosive nonspecific gastritis 04/08/2010 Overview: EGD Dr. Lloyd Glossitis 02/23/2010 Tobacco use disorder 02/23/2010 Menorrhagia 05/19/2009 Vision blurred 05/19/2009 Acute upper respiratory infection 08/14/2008 Overview: ICD10 Diagnosis Term Event Planning Intern Utility Acute pharyngitis 08/14/2008 Screening for malignant neoplasm of cervix 9 Overview: ICD10 Diagnosis Term Event Planning Intern Utility Breast screening 07/16/2008 Overview: ICD10 Diagnosis Term Event Planning Intern Utility Urinary tract infection, site not specified 04/29/20 08 Backache 06/02/2007 Overview: Lower back pain ICD10 Diagnosis Term Event Planning Intern Utility Pain in joint 06/02/2007 Overview: ICD10 Diagnosis Term Event Planning Intern Utility Cervicalgia 06/02/2007 Myalgia and myositis 06/02/2007 Overview: Bilateral trapezius pain ICD10 Diagnosis Term Event Planning Intern Utility Absence of menstruation 04/25/2007 Anemia 03/25/2007 Overview: ICD10 Diagnosis Term Event Planning Intern Utility Helicobacter pylori infection 06/11/2006 Overview: ICD10 Diagnosis Term Event Planning Intern Utility Acute peptic ulcer 06/11/2006 Overview: ICD10 Diagnosis Term Event Planning Intern Utility Abdominal pain 04/25/2006 Overview: ICD10 Diagnosis Term Event Planning Intern Utility Ankylosing spondylitis 04/25/2006 Vaginitis and vulvovaginitis 04/25/2006 Overview: ICD10 Diagnosis Term Event Planning Intern Utility Other, mixed, or unspecified nondependent drug abuse, continuous 11/30/2005 Resolved Problems Problem Noted Date Resolved Date Arm laceration, right, subsequent encounter 04/13/2014 04/13/2014 Syncope and collapse 02/27/2007 06/28/2014 Bipolar I disorder, most recent episode (or current) unspec ified 01/03/2007 01/23/2018 Overview: Dr. 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 11/30/2005 02/11/2018 Overview: ICD10 Diagnosis Term Event Planning Intern Utility Encounters Care Team Description Date Type Specialty Ovidio Clarke Jr., MD Rx Concern/Question 07/04/2019 Telephone Family Medicine Omar Clay DO 3, Jennifer Adult Infusion Nurse Ankylosing spondylitis, unspecified site of spine (Primary Dx) 06/20/2019 Nurse Visit Infusion Therapy Doctor Unassigned, [place] 06/20/2019 Orders Only Ovidio Clarke Jr., MD [...] ) 06/18/2019 Telephone Orthopedic Surgery Doctor Unassigned, [place] 06/18/2019 Orders Only Zia Resendez MD Notification 06/11/2019 Telephone Orthopedic Surgery Ovidio Clarke Jr., MD Refill Request 06/06/2019 Refill Family Medicine Sebastian Doe MD Cervical spondylosis with radiculopathy (Primary Dx); Chronic pain syndrome; Carpal tunnel syndrome of right wrist; Ankylosing spondylitis, unspecified site of spine 06/04/2019 Office Visit Pain Medicine Doctor Unassigned, [place] 06/04/2019 Orders Only Zia Resendez MD Bilateral [...] Comments Vital Sign 125/73 06/20/2019 11:09 AM [employer] PROTECTION OFFICER Blood Pressure 99 06/20/2019 11:09 AM [employer] PROTECTION OFFICER Pulse 37.1 C (98.8 F) 06/20/2019 11:09 AM [employer]ORDER PROTECTION OFFICER Temperature 18 06/20/2019 11:09 AM [employer] AND BORDER PROTECTION OFFICER Respiratory Rate 98% 06/20/2019 11:09 AM [employer] AND BORDER PROTECTION OFFICER Oxygen Saturation - - Inhaled Oxygen Concentration 87 kg (191 lb 12.8 oz) 06/30/2019 2:40 PM [employer]ORDER PROTECTION OFFICER Weight 165.1 cm (5' 5") 06/11/2019 9:04 AM [employer] PROTECTION OFFICER Height 31.92 06/11/2019 9:04 AM [employer] AND BORDER PROTECTION OFFICER Body Mass Index Plan of Treatment Care Team Description Date Type Specialty Zia Resendez MD [address] [facility] [id number] [place], [place] [address] 07/15/2019 Hospital Surgery Encounter Sherley Ding MD [id number] [place], [place] [id number] 07/15/2019 Anesthesia Surgery Event Zia Resendez MD [id number] [place], [place] [id number] OPEN CARPAL TUNNEL RELEASE 07/15/2019 Surgery Surgery Sebastian Doe MD [id number] [place], [place] [address] 07/29/2019 Office Visit Pain Medicine 3, Jennifer Adult Infusion Nurse 08/15/2019 Nurse Visit [place] [id number] [place] [address] 09/18/2019 Office Visit Family Medicine [...] Head, Donal Uhr Bipolar BIPOLAR Right: Hip Peshtigo [id number] #[id number] - S0 head Implanted: Qty: 1 on 09/18/2017 by [facility] at [facility] 07/07/2021 1023-12 / [id number] / [id number] Cancellous Cubes, Community Tissue BONE Right: Hip Community Services Freeze Dried 30 Cc Tissue #1023-12 - [id number] Services Implanted: Qty: 1 on 09/18/2017 by Sebasitan Bunn MD at [facility] 03/08/2018 2018-40 / [id number] / [id number] Dbm Putfinesse Chaparros 10 Cts #2018-40 BONE Right: Hip [facility] - [id number] Tissue Implanted: Qty: 1 on 09/18/2017 by Services Sebastian Bunn MD at [facility] 04/07/2022 1365-28-720 / 0 / [id number] Delta Ceramic Femoral Head 28mm +5 Head Right: Hip Depuy 06/21 Taper Depuy Ref#[id number] Synthes Implanted: Qty: 1 on 09/18/2017 by Sebastian Bunn MD at [facility] 03/29/2022 623-00-44F / 0 / [id number] Insert, Donal Trident 0deg 44mm Liner Right: Hip Donal #[id number] Implanted: Qty: 1 on 09/18/2017 by Sebastian Bunn MD at [facility] 04/24/2022 5260-5-050 / 0 / [id number] Screw Osteolock 3.[address] SCREW Right: Hip Peshtigo Cancellous 50mm Donal Ref#[id number] Implanted: Qty: 2 on 09/18/2017 by Sebastian Bunn MD at [facility] 06/01/2022 5260-5-020 / 0 / [id number] Screw Ostelock 3.[address] SCREW Right: Hip Donal Cancellous 20mm Peshtigo Ref#[id number] Implanted: Qty: 1 on 09/18/2017 by Sebastian Bunn MD at [facility] 06/01/2022 5260-5-016 / 0 / [id number] Screw Osteolock 3.[address] SCREW Right: Hip Donal Cancellous 18mm Peshtigo Ref#[id number] Implanted: Qty: 1 on 09/18/2017 by Sebastian Bunn MD at [facility] 01/02/2022 [id number] / 0 / [id number] Shell, Peshtigo Tritanium Revision Shell Right: Hip Donal Acetabular #[id number] - S0 Implanted: Qty: 1 on 09/18/2017 by Sebastian Bunn MD at [facility] Procedures Comments Procedure Name Priority Date/Time Associated Diag nosis EXTERNAL PROVIDER RECORDS Routine 06/20/2019 12:01 AM C[employer] PROTECTION OFFICER FLU VACC ([id number]), 6+ Routine 06/19/2019 Influ tin vaccine needed MONTHS, IM, QUAD 11:21 AM [employer] PROTECTION OFFICER CONSENT/REFUSAL FOR Routine 06/18/2019 DIAGNOSIS AND TREATMENT 8:10 AM [employer] PROTECTION OFFICER ASSIGNMENT OF BENEFITS Routine 06/18/2019 8:09 AM [employer] PROTECTION OFFICER PATIENT QUESTIONNAIRE Routine 06/04/2019 12:01 AM [employer] PROTECTION OFFICER MR CERVICAL SPINE WO Routine 05/23/2019 Cervical radiculopathy CONTRAST 2:36 PM C[employer]ORDER PROTECTION OFFICER XR ABDOMEN ACUTE SERIES STAT 04/17/2019 Epigas tric pain 2:33 PM CDT CBC WITH DIFFERENTIAL STAT 04/17/2019 Epigastr ic pain 2:03 PM CDT TROPONIN I STAT 04/17/2019 Epigastric pain 2:03 PM CDT LIPASE STAT 04/17/2019 Epigastric pain 2:03 PM CDT HEPATIC FUNCTION PANEL STAT 04/17/2019 Epigast eunice pain (91531) (ALB,T.PRO,BILI 2:03 PM CDT T,BU/BC,ALT,AST,ALK PHOS) BASIC [...] * EXTERNAL PROVIDER RECORDS (06/20/2019 12:01 AM C[employer]ORDER PROTECTION OFFICER) Only the most recent of 2 results within the time period is included. Specimen Performing Organization Address [facility] one Number HIM * CONSENT/REFUSAL FOR DIAGNOSIS AND TREATMENT (06/18/2019 8:10 AM C[employer] AND BORDER PROTECTION OFFICER) Specimen Performing Organization Address [facility] one Number HIM * ASSIGNMENT OF BENEFITS (06/18/2019 8:09 AM C[employer] AND BORDER PROTECTION OFFICER) Specimen Performing Organization Address [facility] one Number HIM * PATIENT QUESTIONNAIRE (06/04/2019 12:01 AM C[employer] AND BORDER PROTECTION OFFICER) Specimen Performing Organization Address [facility] one Number HIM * MR CERVICAL SPINE WO CONTRAST (05/23/2019 2:36 PM CUST[employer]S AND BORDER PROTECTION OFFICER) Specimen Impressions Performed At Impression: PACS/VR/DOSE Multilevel [...] Results Inft User - 05/23/2019 8:53 PM C[employer] AND BORDER PROTECTION OFFICER Exam: MR CERVICAL SPINE WO CONTRAST Clinical [...] bony abnormalities are noted. Scattered pelvic phleboliths. [place] are seen in the left neck regio [...] bony abnormalities are noted. Scattered pelvic phleboliths. [place] are seen in the left neck region, [...] 9.29 4.30 - 11.10 [facility] 10*3/L [facility] RBC 4.10 3.93 - 5.25 10*6/L [facility] HGB 13.9 11.6 - 15.0 g/dL [facility] HCT 41.3 35.7 - 45.2 % [facility] MCV 100.7 (H) 80.6 - 95.5 fL [facility] MCH 33.9 (H) 25.9 - 32.8 pg [facility] MCHC 33.7 31.6 - 35.1 g/dL [facility] RY [facility] RDW-SD 49.2 39.0 - 49.9 fL [facility] RDW-CV 13.3 12.0 - 15.5 % [facility] PLT 318 166 - 358 10*3/L [facility] MPV 10.1 9.5 - 12.9 fL [facility] NRBC/100 WBC 0.0 0.0 - 10.0 /100 WBCs [facility] NRBC x10^3 <0.01 10*3/L [facility] GRAN MAT (NEUT) 58.5 % [facility] Y % [facility] IMM GRAN % 0.20 % [facility] LYMPH % 32.3 % [facility] MONO % 7.4 % [facility] EOS % 1.4 % [facility] BASO % 0.2 % [facility] GRAN MAT 5.43 1.88 - 7.09 10*3/uL [facility] x10^3(ANC) [facility] IMM GRAN x10^3 <0.03 0.00 - 0.06 10*3/uL [facility] LYMPH x10^3 3.00 1.32 - 3.29 10*3/uL [facility] MONO x10^3 0.69 0.33 - 0.92 10*3/uL [facility] EOS x10^3 0.13 0.03 - 0.39 10*3/uL [facility] BASO x10^3 <0.03 0.01 - 0.07 10*3/uL [facility] Specimen Blood - ARM, LEFT Performing Organization Address City/[facility] [place] [facility] Cent[facility]ode Ph one Number [facility] CLIA: [id number], [address] [place], [place] [address] [facility] * Basic Metabolic Panel (NA, K, CL, CO2, GLUCOSE, BUN, CREATININE, CA) (04/17/2019 2:03 PM CDT) NA 137 135 - 145 mmol/L [facility] RY [facility] K 4.1 3.5 - 5.0 mmol/L [facility] RY [facility] CL 104 98 - 108 mmol/L [facility] Y [facility] CO2 TOTAL 24 23 - 31 mmol/L [facility] AGAP 9 2 - 16 [facility] BUN 12 7 - 23 mg/dL [facility] GLUCOSE 92 70 - 110 mg/dL [facility] CREATININE 0.61 0.50 - 1.04 mg/dL [facility] ORY [facility] CALCIUM 9.5 8.6 - 10.6 mg/dL [facility] eGFR 102.2 mL/min/1.73m2 [facility] Calculation [facility] (Non[facility]) eGFR 123.9 mL/min/1.73m2 [facility] Calculation [facility] ([facility]) Specimen Blood - ARM, LEFT Narrative Performed At Association of Glomerular Filtration Rate (GFR) and S taging of Kidney Disease* [facility] + + +------ + [facility] | GFR (mL/min/1.73 m2) | With Kidney Damage | [facility] Kidney Damage [place] + + -------+ + | >90 | [...] abnormalities in imaging tests). Performing Organization Address City/State/[facility] [place] [facility] Centercomn Ph one Number [facility] CLIA: [id number], [address] [place], [place] [address] [facility] * Hepatic Function Panel (ALB, T.PRO, BILI T, BU/BC, ALT, AST, ALK PHOS) (04/17/2019 2:03 PM CDT) TOTAL BILI 0.3 0.1 - 1.1 mg/dL [facility] LABORATOR [facility] BILI UNCON 0.0 (L) 0.1 - 1.1 mg/dL [facility] LABORATOR [facility] BILI CONJ 0.0 0.0 - 0.3 mg/dL [facility] LABORATOR [facility] T PROTEIN 7.5 6.3 - 8.2 g/dL [facility] ALBUMIN 4.2 3.5 - 5.0 g/dL [facility] ALK PHOS 93 34 - 122 U/L [facility] ALT(SGPT) 12 9 - 51 U/L [facility] AST(SGOT) 16 13 - 40 U/L [facility] Specimen Blood - ARM, LEFT Performing Organization Address City/[facility] Ph one Number [facility] CLIA: [id number], [address] [place], [place] [address] [facility] * Troponin I (04/17/2019 2:03 PM CDT) TROPONIN I 0.001 <=0.034 ng/mL [facility] Specimen Blood - ARM, LEFT Narrative Performed At Equal or Less than 0.034 ng/ml---Normal [facility] Note: Cardiac troponin begins to rise 3-4 hours after the onset of ischemia. [facility] Repeat in 4-6 hours if the sample was d rawn within 3-4 hours of the onset of the [place] symptom and found normal. Between 0.035 and [...] Performing Organization Address City/[facility] Ph one Number [facility] CLIA: [id number], [address] [place], [place] [address] [facility] * Lipase Serum (04/17/2019 2:03 PM CDT) LIPASE 86 0 - 220 U/L [facility] Specimen Blood - ARM, LEFT Performing Organization Address City/[facility] Ph one Number [facility] CLIA: [id number], [address] [place], [place] [address] [facility] * EKG-12 LEAD (04/17/2019 1:48 PM CDT) Specimen Performing Organization Address City/State/Zipcode Ph one Number [facility]ST * EMERGENCY SERVICES AGREEMENTS AND AUTHORIZATIONS (04/17/2019 12:01 AM CDT) Specimen Performing Organization Address City/State/Zipcode Ph one Number HIM from Last 3 Months Insurance Type Payer Benefit Subscriber ID Effective Phone Address Plan / Dates Group Medicare Adv HMO [facility] [id number] 2018- MANAGED MEDICARE HEALTHCARE Present DUAL COMPLETE HMO [facility] [employer] [id number] 2018- [address] H Present [address] [place] [address] Medicaid [place] MEDICAID xxxxxxxxx 2019-P [phone] [address] [place] [id number] [place] [address] amily (Home) [place] [address] [facility] 1965 [address] [address] Health (Home) [place] [address] Advance Directives Patient Sr. Manager Explanation Type Date Recorded 0 Advance Directives 08/08/2013 8:00 AM and Living Will Power of Zyglo Inspector 08/08/2013 8:00 AM
--- OUTSIDE RECORDS SUMMARY | 2019-12-13 15:31 | XMS REPORT | Summary of Care ---
Author Author [facility] - Health Organization [facility] - Health Address Unknown Phone Unavailable Care Team Providers Care Process Eng Name Role Phone Ovidio Clarke MD PCP Reason for Visit * Reason Comments Pain Encounter Details Care Team Description Date Type Department Sebastian Doe MD [id number] [place] [address] Cervical spondylosis with radiculopathy (Primary Dx); Ankylosing spondylitis, unspecified site of spine; Carpal tunnel syndrome of right wrist; Chronic pain syndrome 07/29/2019 Office Visit [facility] Health Anesthe [facility] [address] [place] [phone] Allergies Comments Active Allergy Reactions Severity Noted Date Aspirin Hives 03/21/2012 Sulfa (Sulfonamide Hives 11/29/2005 Antibiotics) documented as of this encounter (statuses as of 08/06/2019) Medications End Date Status Medication Sig Dispensed [...] BY MOUTH EVERY MORNING WITH BREAKFAST Active Diclofenac Sodium 1 % Apply 2 g to 100 g 0 gelIndications: Painful neck qid 9 patella, unspecified laterality, Primary localized osteoarthrosis, lower leg, unspecified laterality, Muscle weakness of lower extremity, Effusion of lower leg joint, Knee crepitus, unspecified laterality, Patellofemoral instability of right knee with pain Active LORazepam 1 mg Take one 6 tablet 0 tabletIndications: tablet by 0 Anxiety mouth daily as needed for anxiety documented as of this encounter (statuses as of 08/06/2019) Active Problems Problem Noted Date Essential hypertension 03/19/2019 Carpal tunnel syndrome on right 03/19/2019 Overview: EMG 02/18/2019 Special screening for malignant neoplasms, colon Overview: Added automatically from request for [employer] [id number] Cervical spondylosis with radiculopathy 01/01/2019 Overview: Added automatically from request for [employer] [id number] Mixed hyperlipidemia 08/13/2018 Overview: LDL 140 07/17/2018 Left tennis elbow 06/17/2018 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 Overview: R Avulsion fracture of lateral epicondyle of humerus 0 11/14/2017 Painful patella, unspecified laterality 11/05/2017 S/P revision of total hip 09/18/2017 Colon cancer screening 05/24/2017 Overview: Added automatically from request for [employer] [id number] Hematemesis with nausea 05/24/2017 Overview: Added automatically from request for [employer] [id number] Nausea and vomiting, intractability of vomiting not s pecified, unspecified 05/24/2017 vomiting type Overview: Added automatically from request for [employer] [id number] ANJELICA (obstructive sleep apnea) 05/10/2017 Obesity (BMI 30-39.9) 05/01/2017 Microhematuria 02/14/2017 Complex tear of medial meniscus of right knee as curr ent injury, initial 01/18/2017 encounter Overview: Added automatically from request for jimmy solorio [id number] Elevated MCV 07/25/2016 Overview: 103.4 07/22/2016 Muscle [...] opacitiy on chest xray at [facility] 05/22/2015 Hiatus hernia syndrome 04/09/2015 Overview: EGD 03/23/2015 [facility] screening mammogram 01/06/2015 Immunization deficiency [...] lower leg 11/25/2013 Overview: ICD10 Diagnosis Term Bilingual Manager Utility Knee crepitus 11/25/2013 Genu valgum, acquired 11/25/2013 Overview: ICD10 Diagnosis Term Bilingual Manager Utility Patellofemoral misalignment with pain 11/25/2013 [...] 11/16/2010 Headache 04/08/2010 Overview: ICD10 Diagnosis Term Bilingual Manager Utility Nonerosive nonspecific gastritis 04/08/2010 Overview: EGD Dr. Lloyd Glossitis 02/23/2010 Tobacco use disorder 02/23/2010 Menorrhagia 05/19/2009 Vision blurred 05/19/2009 Acute upper respiratory infection 08/14/2008 Overview: ICD10 Diagnosis Term Bilingual Manager Utility Acute pharyngitis 08/14/2008 Screening for malignant neoplasm of cervix Overview: ICD10 Diagnosis Term Bilingual Manager Utility Breast screening 07/16/2008 Overview: ICD10 Diagnosis Term Bilingual Manager Utility Urinary tract infection, site not specified 04/29/20 08 Backache 06/02/2007 Overview: Lower back pain ICD10 Diagnosis Term Bilingual Manager Utility Pain in joint 06/02/2007 Overview: ICD10 Diagnosis Term Bilingual Manager Utility Cervicalgia 06/02/2007 Myalgia and myositis 06/02/2007 Overview: Bilateral trapezius pain ICD10 Diagnosis Term Bilingual Manager Utility Absence of menstruation 04/25/2007 Anemia 03/25/2007 Overview: ICD10 Diagnosis Term Bilingual Manager Utility Helicobacter pylori infection 06/11/2006 Overview: ICD10 Diagnosis Term Bilingual Manager Utility Acute peptic ulcer 06/11/2006 Overview: ICD10 Diagnosis Term Bilingual Manager Utility Abdominal pain 04/25/2006 Overview: ICD10 Diagnosis Term Bilingual Manager Utility Ankylosing spondylitis 04/25/2006 Vaginitis and vulvovaginitis 04/25/2006 Overview: ICD10 Diagnosis Term Bilingual Manager Utility Other, mixed, or unspecified nondependent drug abuse, continuous 11/30/2005 documented as of this encounter (statuses as of 08/06/2019) Resolved Problems Problem Noted Date Resolved Date Arm laceration, right, subsequent encounter 04/13/2014 04/13/2014 Syncope and collapse 02/27/2007 06/28/2014 Bipolar I disorder, most recent episode (or current) unspec ified 01/03/2007 01/23/2018 Overview: Dr. 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 11/30/2005 02/11/2018 Overview: ICD10 Diagnosis Term Bilingual Manager Utility documented as of this encounter (statuses as of 08/06/2019) Immunizations Name Administration Dates Next Due Hepatitis [...] (PNEUMOVAX) TDAP (ADACEL) VACCINE 08/24/2014 Td 04/01/2014 documented [...] Signs Reading Time Taken Comments Vital Sign 130/85 07/29/2019 1:20 PM [employer] Blood Pressure 97 07/29/2019 1:20 PM [employer] Pulse - - Temperature - - Respiratory Rate 96% 07/29/2019 1:19 PM [employer] Oxygen Saturation - - Inhaled Oxygen Concentration 87.5 kg (193 lb) 07/29/2019 1:19 PM [employer] Weight 165.1 cm (5' 5") 07/29/2019 1:19 PM [employer] Height 32.12 07/29/2019 1:19 PM [employer] Body Mass Index documented in this encounter Progress Notes * Sebastian Doe MD - 07/29/2019 2:30 PM [employer] I personally examined the patient on 07/29/2019 and agree with the resident note as written. I actively participated in the decision-making process. Please see the resident's note for additional details. Dr. Sebastian Doe Asst. Prof. Dept of Anesthesiology And Interventional Pain Medicine [employer] * Naseem Crespo MD - 07/29/2019 2:30 PM [employer] PA[facility] MANAGEMENT [facility] PROGRESS NOTE 07/29/2019 Chief Complaint: f/u on neck pain History of Present illness: Juan Tinoco is a 53 year old female with PMH listed below presents today for follow up on neck pain. Patient states that she has neck pain that is described as "achy, bothersome" which has been going on for years. It radiates into her b ilateral shoulders (R>L) into her right hand/fingers. She also describes a shocking component to the pain into her right arm. She continues with pain medication and physical therpay that does not give her much relief. She had a cervical SHANI performed on 01/23/[address] Doe that only gave three days of pain relief. She had right carpal tunnel release with ortho on 07/15/2019. Additionally she started remicade infusion therapy with Rheumatology in June. PAIN NRS SCALE 0-10 SCORE OVER LAST WEEK (0 = no pain and 10 = worst pain imaginable): Best:7/10 Worst: 9/10 Now: /10 CURRENT PAIN REGIMEN: - Gabapentin 600 mg tid - Cyclobenzaprine 5 mg tid prn - Voltaren1 % gel - Markham 1 tablet prn ADVERSE EFFECTS FROM CURRENT REGIMEN: None Noted FUNCTIONAL STATUS ON CURRENT REGIMEN: Limited with wrist pain PAIN INTERVENTIONAL PROCEDURES DONE BY US/ DATES: Cervical SHANI 2011 Current Outpatient Medications Medication Sig Dispense Refill LORazepam 1 mg tablet Take one tablet by mouth daily as needed for anxiety 6 tablet 0 cyclobenzaprine 5 mg tablet TAKE 1 TABLET BY MOUTH THREE TIMES DAILY 30 tabl et 5 esomeprazole (NEXIUM) 40 mg capsule Take 1 capsule by mouth daily with break fast. TAKE ONE CAPSULE BY MOUTH EVERY MORNING WITH BREAKFAST 90 capsule 3 ethambutol 400 mg tablet 3 tabs three times a week rifAMPin 300 mg capsule 2 tabs 3 x weekly buPROPion XL 150 mg 24 hr tablet TK 1 T PO D 2 paliperidone 6 mg 24 hour tablet TK 1 T PO D 2 ziprasidone 20 mg capsule Take 1 capsule by mouth 2 (two) times daily with m eals. 60 capsule 2 methotrexate 2.5 mg tablet Take by mouth TAKE 5 TABLETS BY MOUTH 1 TIME WEEK LY 60 tablet 0 CYCLOBENZAPRINE 5 mg tablet TAKE 1 TABLET BY MOUTH THREE TIMES DAILY 30 tabl et 0 Polyethylene Glycol 3350 (MIRALAX) 17 gram powder Take 1 Packet by mouth estrella ry 4 (four) hours as needed for Constipation for up to 12 doses. 12 Packet 0 hydroCHLOROthiazide 25 mg tablet Take 1 tablet by mouth daily. 30 tablet 11 gabapentin 600 mg tablet Take 1 tablet by mouth 3 (three) times daily. 90 ta blet 6 foLIC acid 1 mg tablet One daily 90 tablet 3 Diclofenac Sodium 1 % gel Apply 2 g to neck qid 100 g 0 metroNIDAZOLE 500 mg tablet TK 1 T PO BID X 7 DAYS 0 metoclopramide HCl 10 mg tablet Take 1 tablet by mouth every 6 (six) hours a s needed for Nausea and Vomiting (N/V) (headache) for up to 15 doses. 15 tablet 0 Miconazole-Skin Clnsr17 (MONISTAT 7 CREAM, APPL, WIPES) 2 % (100 mg)- 2 % Ki t Use as directed 1 Kit 5 zolpidem (AMBIEN) 10 mg tablet Take 1 tablet by mouth at bedtime as needed f or Insomnia. 30 tablet 5 ondansetron 4 mg disintegrating tablet DISSOLVE ONE TAB IN MOUTH EVERY 8 MACKENZIE RS NEEDED FOR NAUSEA FOR UP TO 30 DAYS 0 miconazole (MICONAZOLE 7) 2 % vaginal cream Insert 1 Applicator into vagina at bedtime. 45 g 0 azithromycin 250 mg tablet Take 250 mg by mouth. VENTOLIN HFA 90 mcg/actuation inhaler INHALE 2 PUFFS Q 4 H PRF WHEEZING OR B REATHLESSNESS 5 No current facility-administered medications for this visit. Past Medical History: Diagnosis Date Abdominal pain Abnormal glucose 10/12/2013 Absence of menstruation 04/25/2007 Acute peptic ulcer, unspecified site, without mention of hemorrhage and perf oration Acute peptic ulcer, unspecified site, without mention of hemorrhage, perfora tion, or obstruction Acute pharyngitis 08/14/2008 Acute upper respiratory infections of unspecified site 08/14/2008 Anemia, unspecified 03/25/2007 Ankylosing spondylitis diagnosed around 2004 confirmed by x rays showing fusion of [...] syndrome 04/09/2015 EGD 03/23/2015 [facility] Immunization deficiency 10/09/2014 She is NOT immune [...] Fountain MD; Location: [facility] ARTHROSCOPIC MENISCAL REPAIR Right 01/06/2014 Surgeon: Girish Fountain MD; Location: [facility] CERVICAL EPIDURAL STEROID INJECTION 03/26/2012 Surgeon: Maged Franklin MD PHD; Location[facility] OR LOCATION CERVICAL EPIDURAL STEROID INJECTION N/A 01/23/2019 Surgeon: Sebastian Doe; Location: [facility] COLONOSCOPY N/A 06/22/2015 Surgeon: Arian To MD; Location: [facility] COLONOSCOPY N/A 02/17/2019 Surgeon: Ricco Hannah DO; Location: [facility] EGD (ENDO) 03/23/2015 [facility] ESOPHAGOGASTRODUODENOSCOPY 04/13 ulcers ESOPHAGOGASTRODUODENOSCOPY 06/15 ESOPHAGOGASTRODUODENOSCOPY 10/07/2009 mild nonerosive gastritis ESOPHAGOGASTRODUODENOSCOPY N/A 06/22/2015 Surgeon: Arian To MD; Location: [facility] ESOPHAGOGASTRODUODENOSCOPY N/A 02/17/2019 Surgeon: Ricco Hannah DO; [facility]: [facility] FLEXIBLE BRONCHOSCOPY 05/24/2015 [employer] HIP HEMIARTHROPLASTY 2001 Right KNEE ARTHROSCOPY Right 01/06/2014 Surgeon: Girish Fountain MD; Location: [facility] RUTH OPEN CARPAL TUNNEL RELEASE Right 07/15/2019 Surgeon: Zia Resendez MD; Location: [place] OR Location [place] ARTHRS KNE SURG W/MENISCECTOMY MED/LAT W/SHVG 01/06/2014 [place] KNEE SCOPE,REMV LOOSE BODY 01/06/2014 TOTAL HIP ARTHROPLASTY REVISION Right 09/18/2017 Surgeon: Sebastian Bunn MD; Location: [facility] [place] Location TUBAL LIGATION 1988 Review of Systems (BOLDED IF POSITIVE, OTHERWISE NEGATIVE) Other pertinent positives annotated above in HPI. General: Fatigue, Unintentional Weight Loss or Weight Gain HEENT: Dry Mouth Cardio: Myocardial infarction/Heart Attack, Heart Rhythm Abnormalities, Abnormal EKGs, History of Coronary Stents, Blood Thinning Medication (Aspirin, Plavix/Cl opidogrel, Heparin/Lovenox) Pulm: Obstructive Sleep Apnea, Snore at night, Use CPAP machine, Smoker, Chroni c Obstructive Pulmonary Disease (COPD) GI: Constipation, Diarrhea, Nausea and Peptic Ulcer Disease, Blood in Stool : Difficulty Urinating Endo: Diabetes and Steroid use Neuro: Glaucoma, Difficulty Walking, Headaches, Numbness, Seizures, Strokes and Weakness MS: Neck Pain, Back Pain, Back Surgery and Muscle Aches Heme: Clotting Difficulties and Easy Bleeding Sleep: Daytime Somnolence, Fogginess of Thought, Inability to Complete Tasks, In somnia Psych: Depression, Anxiety, Thoughts Harming Oneself or Thoughts of Harming Oth ers Physical Exam: BP 130/85 | Pulse 97 | Ht 5' 5" (1.651 m) | Wt 193 lb (87.5 kg) | LMP 2009 | SpO2 96% | BMI 32.12 kg/m Body mass index is 32.12 kg/m. GENERAL: Juan Tinoco is well developed, well nourished HEENT: normocephalic atraumatic and moist mucous membranes, anicteric sclera bi laterally LUNGS: normal excursion, no respiratory distress CARDIOVASCULAR: normal pulse rate, warm extremities, no gross edema noted ABDOMEN: soft MUSCULOSKELETAL/NEUROLOGIC EXAM: Mental Status: normal attention span, arousal, orientation, language, fluency, a ffect, judgement, knowledge and recall. Gait- Normal, steady Upper Extremities Strength: C5 (shoulder abduction, elbow flexion) 5/5R 5/5 L C6 (Wrist extension) 5/5 R 5/5 L C7 (elbow extension, wrist flexion) 5/5 R 5/5L C8 (Finger flexion) 5/5 R 5/5 L T1 (finger abduction) 5/5 R 5/5 L Sensation to light touch: C5 (lateral arm) Intact R Intact L C6 (lateral forearm/hand) Intact R Intact L C7 (middle finger) Intact R Intact L C8 (medial hand/forearm) Intact R Intact L T1 (medial arm): Intact R Intact L Reflexes: C5 (Biceps) 2+R 2+ L C6 (Brachioradialis) 2+ R 2+L C7 (triceps) 2+ R 2+ L Positive for phalen's on right Spine Exam: Cervical Spinous Process Tenderness: Positive Cervical Paraspinous Tenderness: Positive ROM: Decreased Laboratory Last Metabolic Panel (including BUN/Cr and LFTs) BMP NA Date Value 04/17/2019 137 mmol/L 06/28/2014 139 MMOL/L K Date Value 04/17/2019 4.1 mmol/L 06/28/2014 4.3 MMOL/L CALCIUM Date Value 04/17/2019 9.5 mg/dL 06/28/2014 9.5 MG/DL CL Date Value 04/17/2019 104 mmol/L 06/28/2014 105 MMOL/L BUN Date Value 04/17/2019 12 mg/dL 06/28/2014 13 MG/DL CREATININE Date Value 04/17/2019 0.61 mg/dL 06/28/2014 0.81 MG/DL GLUCOSE Date Value 04/17/2019 92 mg/dL 06/28/2014 87 MG/DL CO2 TOTAL Date Value 04/17/2019 24 mmol/L 06/28/2014 26 MMOL/L CBC WBC x10^3 (/uL) Date Value 06/28/2014 8.4 WBC (10*3/L) Date Value 04/17/2019 9.29 RBC x10^6 (/uL) Date Value 06/28/2014 4.27 RBC (10*6/L) Date Value 04/17/2019 4.10 PLT x10^3 (/uL) Date Value 06/28/2014 343 PLT (10*3/L) Date Value 04/17/2019 318 HGB Date Value 04/17/2019 13.9 g/dL 06/28/2014 13.2 G/DL HCT (%) Date Value 04/17/2019 41.3 06/28/2014 39.8 Radiology Pertinent Films 05/14/19 Exam: MR CERVICAL SPINE WO CONTRAST Clinical [...] patient age. Further ENT evaluation is recommended. 04/01/19 EXAM: XR HAND 3+ VW BILATERAL HISTORY: pain COMPARISON: None FINDINGS: Imaging of the left and right hand demonstrates moderate bilateral thumb CMC joint space narrowing, subchondral sclerosis, subcortical cyst formation with osteophytosis. Chronic osteophyte fragmentation is seen at these sites. Findings are more notable on the left. IMPRESSION Bilateral thumb CMC joint osteoarthrosis Electrodiagnostics 03/01/19 Conclusions: Abnormal study. Electrodiagnostic evidence of mild to moderate right median neuropathy at wr ist. Very mild left median neuropathy at wrist. Mild chronic denervation changes in the muscles innervated by right C7-8 bernie ts without active ongoing denervation. Medical Decision Making: Dx: ICD-10-CM ICD-9-CM 1. Cervical spondylosis with radiculopathy M47.22 721.0 2. Ankylosing spondylitis, unspecified site of spine M45.9 720.0 3. Carpal tunnel syndrome of right wrist G56.01 354.0 4. Chronic pain syndrome G89.4 338.4 Assessment/Plan: Mrs. Tinoco is a 53 year old female that presents today for follow on neck pain. Patient continues to have pain that radiates into shoulders, and into right hand and finger. S/p right carpal tunnel release with improved pain in right hand. Patient is not consistent with taking her gabapentin, so we recommend she take t he medication as below. She may benefit from increasing the dose but we will rancho luate at her next visit the effect with improved compliance. Recommend holding o ff on any SHANI until she has healed from the CTS. Will f/u in 3 months. 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 Nader MD. Naseem Crespo MD Anesthesia, CA-1 07/29/2019 1:28 PM [employer] documented in this encounter Plan of Treatment Care Team Description Date Type Specialty Giuliano Gardner FNP [address] [place] [address] [phone] 08/08/2019 Appointment Radiology 3, Jennifer Adult Infusion Nurse 08/15/2019 Nurse Visit [place] [address] [place] [phone] 09/18/2019 Office Visit Family Medicine Giuliano Gardner FNP [address] [place] [address] [phone] 09/23/2019 Office Visit Orthopedic Surgery CookSebastian MD [id number] [place] [address] [phone] 10/28/2019 Office Visit Pain Medicine Health Maintenance Due [...] Completed 06/19/2019, 018, 05/10/2017, Additional history exists documented as of this [...] Donal Uhr Bipolar BIPOLAR Right: Hip Donal 39z08dy #[id number] - S0 head Implanted: Qty: 1 on 09/18/2017 by Sebastian Bunn MD at [facility] 07/07/2021 1023-12 / [id number] / [id number] Cancellous Cubes, Community Tissue BONE Right: Hip Community [facility] Freeze Dried 30 Cc Tissue #1023-12 - [id number] Services Implanted: Qty: 1 on 09/18/2017 by Sebastian Bunn MD at [facility] 03/08/2018 2018-40 / [id number] / [id number] Dbm Fadi Chaparros 10 Cts #2018-40 BONE Right: Hip [facility] [id number] Tissue Implanted: Qty: 1 on 09/18/2017 by Services Sebastian Bunn MD at [facility] 04/07/2022 1365-28-720 / 0 / [id number] Delta Ceramic Femoral Head 28mm +5 Head Right: Hip Depuy 06/21 Taper Depuy Ref#[id number] Synthes Implanted: Qty: 1 on 09/18/2017 by Sebastian Bunn MD at [facility] 03/29/2022 [id number] / 0 / [id number] Insert, Donal Trident 0deg 44mm Liner Right: Hip Donal #[id number] Implanted: Qty: 1 on 09/18/2017 by Sebastian Bunn MD at [facility] 04/24/2022 5260-5-050 / 0 / [id number] Screw Osteolock 3.[address] SCREW Right: Hip Donal Cancellous 50mm Pike Ref#[id number] Implanted: Qty: 2 on 09/18/2017 by Sebastian Bunn MD at [facility] 06/01/2022 5260-5-020 / 0 / [id number] Screw Ostelock 3.[address] SCREW Right: Hip Pike Cancellous 20mm Donal Ref#[id number] Implanted: Qty: 1 on 09/18/2017 by Sebastian Bunn MD at [facility] 06/01/2022 5260-5-016 / 0 / [id number] Screw Osteolock 3.[address] SCREW Right: Hip Donal Cancellous 18mm Pike Ref#[id number] Implanted: Qty: 1 on 09/18/2017 by Sebastian Bunn MD at [facility] 01/02/2022 [id number] / 0 / [id number] Shell, Pike Tritanium Revision Shell Right: Hip Donal Acetabular #[id number] - S0 Implanted: Qty: 1 on 09/18/2017 by Sebastian Bunn MD at [facility] documented as of this encounter Results Not on filedocumented in this encounter Visit Diagnoses Diagnosis Cervical spondylosis with radiculopathy - Primary Cervical spondylosis with myelopathy Ankylosing spondylitis, unspecified sit e of spine Carpal tunnel syndrome of right wrist Carpal tunnel syndrome Chronic pain syndrome documented in this encounter Insurance Type Payer Benefit Subscriber ID Effective Phone Address Plan / Dates Group Medicare Adv O [place] [employer] [place] [id number] 2018- MANAGED MEDICARE HEALTHCARE Present DUAL COMPLETE O Medicaid [facility] MEDICAID xxxxxxxxx 2019-P [phone] [address] [address] documented as of this encounter Advance Directives Patient Hopper Attendant Explanation Type Date Recorded 0 Advance Directives 08/08/2013 8:00 AM and Living Will Power of Customer Supply Coordinator 08/08/2013 8:00 AM
--- OUTSIDE RECORDS SUMMARY | 2019-12-13 15:31 | XMS REPORT | Summary of Care ---
Author Author [facility] - Health Organization [facility] - Health Address Unknown Phone Unavailable Care Team Providers Care Recooperer Name Role Phone Ovidio Clarke MD PCP Reason for Referral * (Routine) Referred By Contact Referred To Contact Status Reason Specialty Diagnoses / Procedures Giuliano Gardner, PACK PRESS OPERATOR [address] [place] [address] [phone] Closed Occupational Diagnoses Therapy Carpal tunnel syndrome on right P rocedures CONSULT/REFERRAL OCCUPATIONAL THERAPY * Radiology Services (Routine) Referred By Contact Referred To Contact Status Reason Specialty Diagnoses / Procedures Giuliano Gardner, PACK PRESS OPERATOR [address] [place] [phone] New Request Diagnostic Diagnoses Radiology Postmenopausal bone loss P rocedures DEXA PERIPHERAL (FOREARM) * Radiology Services (Routine) Referred By Contact Referred To Contact Status Reason Specialty Diagnoses / Procedures Giuliano Gardner, PACK PRESS OPERATOR [address] [place] [address] [phone] Authorized Diagnostic Diagnoses Radiology Postmenopausal bone loss P rocedures DEXA AXIAL (HIP AND SPINE) Reason for Visit * Reason Comments POST-OP hand * (Routine) Referred By Contact Referred To Contact Status Reason Specialty Diagnoses / Procedures Zia Resendez MD [id number] [place] [address] Closed ORT-ORTHOPAEDIC Diagnoses SURGERY / Carpal tunnel Orthopedic syndrome on right Surgery P rocedures Discharge Follow-Up: Specialty Service ORT-ORTHOPAEDIC SURGERY; 2 Weeks (10-14 days) Encounter Details Care Team Description Date Type Department Giuliano Gardner, ALVIN [address] [place] [address] [phone] Carpal tunnel syndrome on right (Primary Dx); Postmenopausal bone loss; Ankylosing spondylitis of multiple sites in spine 07/31/2019 Office Visit [facility] edic Surgery- [facility] [address] [facility] [address] [place] [address] Allergies Comments Active Allergy Reactions Severity Noted [...] Anxiety mouth daily as needed for anxiety 09/25/2019 Active ergocalciferol, vitamin Take 1 8 capsule 0 d2, 1,250 mcg (50,000 capsule by 0 unit) capsuleIndications: mouth weekly Postmenopausal bone loss for 8 doses. documented as of this encounter (statuses as of 08/06/2019) Active Problems Problem Noted Date Essential hypertension 03/19/2019 Carpal tunnel syndrome on right 03/19/2019 Overview: EMG 02/18/2019 Special screening for malignant neoplasms, colon Overview: Added automatically from request for jimmy solorio [id number] Cervical spondylosis with radiculopathy 01/01/2019 Overview: Added automatically from request for jimmy solorio [id number] Mixed hyperlipidemia 08/13/2018 Overview: LDL 140 07/17/2018 Left tennis elbow 06/17/2018 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 Overview: R Avulsion fracture of lateral epicondyle of humerus 0 11/14/2017 Painful patella, unspecified laterality 11/05/2017 S/P revision of total hip 09/18/2017 Colon cancer screening 05/24/2017 Overview: Added automatically from request for jimmy solorio [id number] Hematemesis with nausea 05/24/2017 Overview: Added automatically from request for jimmy solorio [id number] Nausea and vomiting, intractability of vomiting not s pecified, unspecified 05/24/2017 vomiting type Overview: Added automatically from request for jimmy solorio [id number] ANJELICA (obstructive sleep apnea) 05/10/2017 Obesity (BMI 30-39.9) 05/01/2017 Microhematuria 02/14/2017 Complex tear of medial meniscus of right knee as curr ent injury, initial 01/18/2017 encounter Overview: Added automatically from request for jimmy solorio [id number] Elevated MCV 07/25/2016 Overview: 103.4 07/22/2016 Muscle [...] opacitiy on chest xray at [facility] 05/22/2015 Hiatus hernia syndrome 04/09/2015 Overview: EGD 03/23/2015 [facility] Other screening mammogram 01/06/2015 Immunization deficiency [...] lower leg 11/25/2013 Overview: ICD10 Diagnosis Term Elevator Constructor Utility Knee crepitus 11/25/2013 Genu valgum, acquired 11/25/2013 Overview: ICD10 Diagnosis Term Elevator Constructor Utility Patellofemoral misalignment with pain 11/25/2013 Primary [...] 11/16/2010 Headache 04/08/2010 Overview: ICD10 Diagnosis Term Elevator Constructor Utility Nonerosive nonspecific gastritis 04/08/2010 Overview: EGD Dr. Lloyd Glossitis 02/23/2010 Tobacco use disorder 02/23/2010 Menorrhagia 05/19/2009 Vision blurred 05/19/2009 Acute upper respiratory infection 08/14/2008 Overview: ICD10 Diagnosis Term Elevator Constructor Utility Acute pharyngitis 08/14/2008 Screening for malignant neoplasm of cervix Overview: ICD10 Diagnosis Term Elevator Constructor Utility Breast screening 07/16/2008 Overview: ICD10 Diagnosis Term Elevator Constructor Utility Urinary tract infection, site not specified 04/29/20 08 Backache 06/02/2007 Overview: Lower back pain ICD10 Diagnosis Term Elevator Constructor Utility Pain in joint 06/02/2007 Overview: ICD10 Diagnosis Term Elevator Constructor Utility Cervicalgia 06/02/2007 Myalgia and myositis 06/02/2007 Overview: Bilateral trapezius pain ICD10 Diagnosis Term Elevator Constructor Utility Absence of menstruation 04/25/2007 Anemia 03/25/2007 Overview: ICD10 Diagnosis Term Elevator Constructor Utility Helicobacter pylori infection 06/11/2006 Overview: ICD10 Diagnosis Term Elevator Constructor Utility Acute peptic ulcer 06/11/2006 Overview: ICD10 Diagnosis Term Elevator Constructor Utility Abdominal pain 04/25/2006 Overview: ICD10 Diagnosis Term Elevator Constructor Utility Ankylosing spondylitis 04/25/2006 Vaginitis and vulvovaginitis 04/25/2006 Overview: ICD10 Diagnosis Term Elevator Constructor Utility Other, mixed, or unspecified nondependent drug [...] eatures 11/30/2005 02/11/2018 Overview: ICD10 Diagnosis Term Elevator Constructor Utility documented as of this encounter (statuses [...] Signs Reading Time Taken Comments Vital Sign 103/62 07/31/2019 9:30 AM COMMUNICATION ANALYST Blood Pressure 104 07/31/2019 9:30 AM COMMUNICATION ANALYST Pulse 35.9 C (96.7 F) 07/31/2019 9:30 AM COMMUNICATION ANALYST Temperature - - Respiratory Rate - - Oxygen Saturation - - Inhaled Oxygen Concentration 87.2 kg (192 lb 4.8 oz) 07/31/2019 9:30 AM COMMUNICATION ANALYST Weight - - Height 32 07/29/2019 1:19 PM COMMUNICATION ANALYST Body Mass Index documented in this encounter Progress Notes * Giuliano Gardner FNP - 07/31/2019 10:30 AM COMMUNICATION ANALYST Ortho Spine Clinic Note CC: neck pain HPI History of Present Illness: Juan Tinoco is a 53 year old female coming in [facility] with chief complaint of neck. This has been going on for years. The pain is located in the patient's neck and radiates down into right hand. The patient had injection into right carpal tunnel with no relief. She recently completed M RI of cervical spine. The patient denies loss of function with respect to bowel or bladder control. Further, there are no reports of unsteady gait or clumsines s in the hands. Interval Hx 07/31/2019 :Juan Tinoco is a 53 year old female for 2 weeks follo w up after rt carpal tunnel release on 07/15/2019 and her wound is clean,dry and w ill remove the suture today. She has h/o RA and started Remicade infusion from Jun 2019. Allergies Allergies Allergen Reactions Aspirin Hives Sulfa (Sulfonamide Antibiotics) Hives Past Medical Histoy Past Medical History: Diagnosis Date Abdominal pain [...] syndrome 04/09/2015 EGD 03/23/2015 [facility] Immunization deficiency 10/09/2014 She is NOT [...] legs 11/16/2010 Vision blurred 05/19/2009 Past Surgical History Past Surgical History: Procedure Laterality Date ABDOMINAL HYSTERECTOMY 11/15/2009 Dr. Ro ARTHROSCOPIC FOREIGN BODY REMOVAL (SHX) Right 01/06/2014 Surgeon: Girish Fountain MD; Location: [facility]ATION ARTHROSCOPIC MENISCAL REPAIR Right 01/06/2014 Surgeon: Girish Fountain MD; Location: [facility] CERVICAL EPIDURAL STEROID INJECTION 03/26/2012 Surgeon: Maged Franklin MD PHD; Location: [facility]ATION CERVICAL EPIDURAL STEROID INJECTION N/A 01/23/2019 Surgeon: Sebastian Doe; Location: [facility] Location COLONOSCOPY N/A 06/22/2015 Surgeon: Arian To MD; Location: [facility] LOCATION COLONOSCOPY N/A 02/17/2019 Surgeon: Ricco Hannah DO; Location: [facility] OR Location EGD (ENDO) 03/23/2015 [facility] [place] ESOPHAGOGASTRODUODENOSCOPY 04/13 ulcers ESOPHAGOGASTRODUODENOSCOPY 06/15 ESOPHAGOGASTRODUODENOSCOPY 10/07/2009 mild nonerosive gastritis ESOPHAGOGASTRODUODENOSCOPY N/A 06/22/2015 Surgeon: Arian To MD; Location: [facility] OR LOCATION ESOPHAGOGASTRODUODENOSCOPY N/A 02/17/2019 Surgeon: Ricco Hannah DO; Location: [place] [facility] OR Location FLEXIBLE BRONCHOSCOPY 05/24/2015 Samira, 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 HIP HEMIARTHROPLASTY 2001 Right KNEE ARTHROSCOPY Right 01/06/2014 Surgeon: Girish Fountain MD; Location: [facility] OR LOCATION OPEN CARPAL TUNNEL RELEASE Right 07/15/2019 Surgeon: Zia Resendez MD; Location: [place] OR [facility] AR[facility] KNE SURG W/MENISCECTOMY MED/LAT W/SHVG 01/06/2014 [facility] KNEE SCOPE,REMV LOOSE BODY 01/06/2014 TOTAL HIP ARTHROPLASTY REVISION Right 09/18/2017 Surgeon: Sebastian Bunn MD; Location: [facility] OR Location TUBAL LIGATION 1988 ROS Constitutional: negative Eyes: negative Ears: negative Nose/Sinuses: negative Mouth/Throat: negative Cardiovascular: negative Respiratory: negative Gastrointestinal: negative Genitourinary: negative Endocrine: negative Musculoskeletal: as per HPI Integumentary: negative Neurological: negative Physical Examination BP 103/62 (BP Location: Left arm) | Pulse 104 | Temp 35.9 C (96.7 F) | Wt 87.2 kg (192 lb 4.8 oz) | LMP 11/08/2009 | BMI 32.00 kg/m Neck: Skin: benign ROM: Full TTP: negative Spurling: Negative Upper Extremities Right Left Strength C5 (shoulder abduction) 5/5 5/5 (Elbow flexion) 5/5 5/5 C6 (Wrist extension) 5/5 5/5 C7 (elbow extension) 5/5 5/5 (wrist flexion) 5/5 5/5 C8 (Finger flexion) 5/5 5/5 T1 (finger abduction) 5/5 5/5 Reflexes C5 (Biceps) 2+ 2+ C6 (Brachioradialis) 2+ 2+ C7 (triceps) 2+ 2+ Bullard neg neg Sensation to light touch C5- lateral arm Intact Intact C6- lateral forearm/hand Intact Intact C7-middle finger Intact Intact C8- medial hand/forearm Intact Intact T1--medial arm Intact Intact +phalens on right Imaging: MRI C spine- Multilevel spondylosis and spondyloarthropathy most pronounced at C 4-C5 and C5-C6 resulting in mild spinal canal stenosis. Moderate right C5-C6 and neural foraminal narrowing. No abnormal cervical cord signal. EMG Median nerve compression at right carpal tunnel VIT D 25OH (ng/mL) Date Value 07/31/2019 18 (L) 07/16/2018 22 (L) Assessment: Juan Tinoco is a 53 year old female with right carpal tunnel release 0. Plan: -Suture removed today. -Ordered DEXA and labs. -Referred to OT for the post op rehab. -Continue Gabapentin and muscle relaxer. -Rx vit d2 50,000 IU sent to pharmacy for 8 weeks. ALVIN Kelly. Orthopedics surgery. T documented in this encounter Plan of Treatment Care Team Description Date Type Specialty Giuliano Gardner FNP [address] [place] [address] [id number] 08/08/2019 Appointment Radiology 3, Jennifer Adult Infusion Nurse 08/15/2019 Nurse Visit [place] [address] [place] [address] 09/18/2019 Office Visit Family Medicine Giuliano Gardner FNP [address] [place] [address] [phone] 09/23/2019 Office Visit Orthopedic Surgery Sebastian Doe MD [id number] [place] [address] [phone] 10/28/2019 Office Visit Pain Medicine Order Schedule Name Type Priority Associated Diag noses Expected: 07/31/2019, Expires: 1 DEXA AXIAL (HIP AND IMAGING Routine Postmenopa usal bone loss SPINE) Expected: 07/31/2019, Expires: 1 DEXA PERIPHERAL (FOREARM) IMAGING Routine Post menopausal bone loss Health Maintenance Due Date Last Done Comments [...] UH1-44-28 / 0 / [id number] Bipolar Head, [place] Uhr Bipolar BIPOLAR Right: Hip [place] [id number] #Uh1-44-28 - S0 head Implanted: Qty: 1 on 09/18/2017 by Sebastian Bunn MD at [facility] 07/07/2021 1023-12 / [id number] / [id number] Cancellous Cubes, Community Tissue BONE Right: Hip Community Services Freeze Dried 30 Cc Tissue #1023-12 - [id number] Services Implanted: Qty: 1 on 09/18/2017 by Sebastian Bunn MD at [facility] 03/08/2018 2018-40 / [id number] / [id number] Dbm Putty Maxxeus 10cc Cts #2018-40 BONE Right: Hip [facility] [id number] Tissue Implanted: Qty: 1 on 09/18/2017 by Services Sebastian Bunn MD at [facility] 04/07/2022 1365-28-720 / 0 / [id number] Delta Ceramic Femoral Head 28mm +5 Head Right: Hip Depuy 06/21 Taper Depuy Ref#[id number] Synthes Implanted: Qty: 1 on 09/18/2017 by Sebastian Bunn MD at [facility] 03/29/2022 623-00-44F / 0 / [id number] Insert, [place] Trident 0deg 44mm Liner Right: Hip Donal #[id number] Implanted: Qty: 1 on 09/18/2017 by Sebastian Bunn MD at [facility] 04/24/2022 5260-5-050 / 0 / [id number] Screw Osteolock 3.[address] SCREW Right: Hip Donal Cancellous 50mm Donal Ref#[id number] Implanted: Qty: 2 on 09/18/2017 by Sebastian Bunn MD at [facility] 06/01/2022 5260-5-020 / 0 / [id number] Screw Ostelock 3.[address] SCREW Right: Hip Donal Cancellous 20mm Donal Ref#[id number] Implanted: Qty: 1 on 09/18/2017 by Sebastian Bunn MD at [facility] 06/01/2022 5260-5-016 / 0 / [id number] Screw Osteolock 3.[address] SCREW Right: Hip Donal Cancellous 18mm [place] Ref#[id number] Implanted: Qty: 1 on 09/18/2017 by Sebastian Bunn MD at [facility] 01/02/2022 509-02-60F / 0 / [id number] Shell, [place] Tritanium Revision Shell Right: Hip Donal Acetabular #[id number] - S0 Implanted: Qty: 1 on 09/18/2017 by Sebastian Bunn MD at [facility] documented as of this encounter Procedures Comments Procedure Name Priority Date/Time Associated Diag nosis VITAMIN D, 25-OH Routine 07/31/2019 Postmenopausa l bone loss 10:15 AM COMMUNICATION ANALYST INTACT PTH CALCIUM GROUP Routine 07/31/2019 Postm enopausal bone loss 10:15 AM COMMUNICATION ANALYST VITAMIN B12, LEVEL Routine 07/31/2019 Postmenopau marjorie bone loss 10:15 AM COMMUNICATION ANALYST MAGNESIUM Routine 07/31/2019 Postmenopausal bone loss 10:15 AM COMMUNICATION ANALYST documented in this encounter Results * MAGNESIUM (07/31/2019 10:15 AM COMMUNICATION ANALYST) MAGNESIUM 2.1 1.7 - 2.4 mg/dL [facility] Specimen Blood Performing Organization Address City/State/Zipcode Ph one Number [facility] CLIA: [id number], [address] [place], [place] [address] [facility] * VITAMIN B12, LEVEL (07/31/2019 10:15 AM COMMUNICATION ANALYST) VIT B12 345 240 - 930 pg/mL [facility] Specimen Blood Narrative Performed At Biotin has been reported to cause a pos itive bias, interpret results relative to [facility] patient's use of biotin. SERVICES Performing Organization Address City/State/Zipcode Ph one Number [facility] CLIA: [id number], [address] [place] [address] [facility] * INTACT PTH CALCIUM GROUP (07/31/2019 10:15 AM COMMUNICATION ANALYST) CALCIUM 9.9 8.6 - 10.6 mg/dL [facility] PTH-INTACT 62.3 12.0 - 88.0 pg/mL [facility] PTH-CA Comment: PTH IS Appropriate [facility] Interpretation for Calcium SERVICES Specimen Blood Performing Organization Address City/[facility]/Zipcode Ph one Number [facility] CLIA: [id number], [address] [place] [address] [facility] * VITAMIN D, 25-OH (07/31/2019 10:15 AM COMMUNICATION ANALYST) VIT D 25OH 18 (L) 25 - 80 ng/mL [facility] Specimen Blood Narrative Performed At Deficiency: <20 ng/mL [facility] Insufficiency: 20-24 ng/mL SERVICES Optimal: 25-80 ng/mL Performing Organization Address City/State/[facility] Ph one Number [facility] CLIA: [id number], [address] [place] [address] [facility] documented in this encounter Visit Diagnoses Diagnosis Carpal tunnel syndrome on right - Prima ry Carpal tunnel syndrome Postmenopausal bone loss Senile osteoporosis Ankylosing spondylitis of multiple site s in spine Ankylosing spondylitis documented in this encounter Insurance Type Payer Benefit Subscriber ID Effective Phone Address Plan / Dates Group Medicare Adv 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
--- OUTSIDE RECORDS SUMMARY | 2019-12-13 15:31 | XMS REPORT | Summary of Care ---
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 [facility] ON Visit CLINICS LAB [facility] [address] , [address]; [address] [place] [address] Allergies Comments Active Allergy Reactions Severity Noted Date Aspirin Hives 03/21/2012 Sulfa (Sulfonamide Hives 11/29/2005 Antibiotics) documented as of this encounter (statuses as of 08/19/2019) Medications End Date Status Medication Sig Dispensed [...] NAUSEA FOR UP TO 30 DAYS Active hydroCHLOROthiazide 25 mg Take 1 tablet [...] 40 Take 1 90 capsule 3 1 2/12/201 mg capsuleIndications: capsule by 9 Gastroesophageal reflux mouth daily disease without with esophagitis, Nonerosive breakfast. nonspecific gastritis TAKE ONE CAPSULE BY MOUTH EVERY MORNING WITH BREAKFAST Active LORazepam 1 mg Take one 6 tablet 0 tabletIndications: tablet by 0 Anxiety mouth daily as needed for anxiety 09/25/2019 Active ergocalciferol, vitamin Take 1 8 capsule 0 d2, 1,250 mcg (50,000 capsule by 0 unit) capsuleIndications: mouth weekly Postmenopausal bone loss for 8 doses. Active Diclofenac Sodium 1 % Apply 2 g to 100 g 0 gelIndications: Painful neck qid 0 patella, unspecified laterality, Primary localized osteoarthrosis, lower leg, unspecified laterality, Muscle weakness of lower extremity, Effusion of lower leg joint, Knee crepitus, unspecified laterality, Patellofemoral instability of right knee with pain Active zolpidem (AMBIEN) 10 mg Take 1 tablet 90 tablet 1 tabletIndications: by mouth at 0 Insomnia, unspecified bedtime as type needed for Insomnia. documented as of this encounter (statuses as of 08/19/2019) Active Problems Problem Noted Date Essential hypertension 03/19/2019 Carpal tunnel syndrome on right 03/19/2019 Overview: EMG 02/18/2019 Special screening for malignant neoplasms, colon Overview: Added automatically from request for [employer] [id number] Cervical spondylosis with radiculopathy 01/01/2019 Overview: Added automatically from request for [employer] [id number] Mixed hyperlipidemia 08/13/2018 Overview: LDL 140 07/17/2018 Left tennis elbow 06/17/2018 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 Overview: R Avulsion fracture of lateral epicondyle of humerus 0 11/14/2017 Painful patella, unspecified laterality 11/05/2017 S/P revision of total hip 09/18/2017 Colon cancer screening 05/24/2017 Overview: Added automatically from request for [employer] [id number] Hematemesis with nausea 05/24/2017 Overview: Added automatically from request for [employer] [id number] Nausea and vomiting, intractability of vomiting not s pecified, unspecified 05/24/2017 vomiting type Overview: Added automatically from request for [employer] [id number] ANJELICA (obstructive sleep apnea) 05/10/2017 Obesity (BMI 30-39.9) 05/01/2017 Microhematuria 02/14/2017 Complex tear of medial meniscus of right knee as curr ent injury, initial 01/18/2017 encounter Overview: Added automatically from request for [employer] [id number] Elevated MCV 07/25/2016 Overview: 103.4 07/22/2016 Muscle [...] lobe nodular opacitiy on chest xray at [facility] 05/22/2015 Hiatus hernia syndrome 04/09/2015 Overview: EGD 03/23/2015 [facility] screening mammogram 01/06/2015 Immunization deficiency 10/09/2014 Overview: [...] leg 11/25/2013 Overview: ICD10 Diagnosis Term Health Information [employer] Knee crepitus 11/25/2013 Genu valgum, acquired 11/25/2013 Overview: ICD10 Diagnosis Term Health Information Clerk [employer] Patellofemoral misalignment with pain 11/25/2013 [...] Headache 04/08/2010 Overview: ICD10 Diagnosis Term Health Information Clerk [employer] Nonerosive nonspecific gastritis 04/08/2010 Overview: EGD Dr. Lloyd Glossitis 02/23/2010 Tobacco use disorder 02/23/2010 Menorrhagia 05/19/2009 Vision blurred 05/19/2009 Acute upper respiratory infection 08/14/2008 Overview: ICD10 Diagnosis Term Health Information Clerk Utility Acute pharyngitis 08/14/2008 Screening for malignant neoplasm of cervix 9 Overview: ICD10 Diagnosis Term Health Information Clerk [employer] Breast screening 07/16/2008 Overview: ICD10 Diagnosis Term Health Information Clerk [employer] Urinary tract infection, site not specified 04/29/20 08 Backache 06/02/2007 Overview: Lower back pain ICD10 Diagnosis Term Health Information Clerk [employer] Pain in joint 06/02/2007 Overview: ICD10 Diagnosis Term Health Information Clerk [employer] Cervicalgia 06/02/2007 Myalgia and myositis 06/02/2007 Overview: Bilateral trapezius pain ICD10 Diagnosis Term Health Information Clerk [employer] Absence of menstruation 04/25/2007 Anemia 03/25/2007 Overview: ICD10 Diagnosis Term Health Information Clerk Utility Helicobacter pylori infection 06/11/2006 Overview: ICD10 Diagnosis Term Health Information Clerk Utility Acute peptic ulcer 06/11/2006 Overview: ICD10 Diagnosis Term Health Information Clerk Utility Abdominal pain 04/25/2006 Overview: ICD10 Diagnosis Term Health Information Clerk Utility Ankylosing spondylitis 04/25/2006 Vaginitis and vulvovaginitis 04/25/2006 Overview: ICD10 Diagnosis Term Health Information Clerk Utility Other, mixed, or unspecified nondependent drug abuse, continuous 11/30/2005 documented as of this encounter (statuses as of 08/19/2019) Resolved Problems Problem Noted Date Resolved Date Arm laceration, right, subsequent encounter 04/13/2014 04/13/2014 Syncope and collapse 02/27/2007 06/28/2014 Bipolar I disorder, most recent episode (or current) unspec ified 01/03/2007 01/23/2018 Overview: Dr. 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 [phone] 09/01/2019 Office [place] [address] [place] [phone] 09/18/2019 Office Visit Family Medicine Giuliano Gardner, REIMBURSEMENT SPECIALIST [address] [place] [address] [phone] 09/23/2019 Office Visit Orthopedic Surgery Sebastian Doe MD [address] [facility] [id number] [place] [address] [phone] 10/28/2019 Office Visit Pain Medicine Omar Clay, DO [address] [place] [address] [phone] 11/18/2019 Office Visit Rheumatology Health Maintenance Due Date [...] Donal Uhr Bipolar BIPOLAR Right: Hip Donal [id number] #Uh1-44-28 - S0 head Implanted: Qty: 1 on 09/18/2017 by Sebastian Bunn MD at [facility] 07/07/2021 1023-12 / [id number] / [id number] Cancellous Cubes, Community Tissue BONE Right: [facility] Freeze Dried 30 Cc Tissue #1023-12 - [id number] Services Implanted: Qty: 1 on 09/18/2017 by Sebastian Bunn MD at [facility] 03/08/2018 2018-40 / [id number] / [id number] Dbm Putty Maxxeus 10cc Cts #2018-40 BONE Right: Hip [facility] - [id number] Tissue Implanted: Qty: 1 on 09/18/2017 by Services Sebastian Bunn MD at [facility] 04/07/2022 1365-28-720 / 0 / [id number] Delta Ceramic Femoral Head 28mm +5 Head Right: Hip Depuy 06/21 Taper Depuy Ref#[id number] Synthes Implanted: Qty: 1 on 09/18/2017 by Sebastian Bunn MD at [facility] 03/29/2022 623-00-44F / 0 / [id number] Insert, Donal Trident 0deg 44mm Liner Right: Hip Donal #623-00-44f Implanted: Qty: 1 on 09/18/2017 by Sebastian Bunn MD at [facility] 04/24/2022 5260-5-050 / 0 / [id number] Screw Osteolock [address] SCREW Right: Hip [place] Cancellous 50mm Donal Ref#[id number] Implanted: Qty: 2 on 09/18/2017 by Sebastian Bunn MD at [facility] 06/01/2022 5260-5-020 / 0 / [id number] Screw Ostelock 3.[address] SCREW Right: Hip Donal Cancellous 20mm [place] Ref#[id number] Implanted: Qty: 1 on 09/18/2017 by Sebastian Bunn MD at [facility] 06/01/2022 5260-5-016 / 0 / [id number] Screw Osteolock 3.[address] SCREW Right: Hip [place] Cancellous 18mm [place] Ref#[id number] Implanted: Qty: 1 on 09/18/2017 by Sebastian Bunn MD at [facility] 01/02/2022 509-02-60F / 0 / [id number] Shell, Donal Tritanium Revision Shell Right: Hip Donal Acetabular #509-02-60f - S0 Implanted: Qty: 1 on 09/18/2017 by Sebastian Bunn MD at [facility] documented as of this encounter Results Not on filedocumented in this encounter Visit Diagnoses Diagnosis Ankylosing spondylitis of multiple site s in spine Ankylosing spondylitis documented in this encounter Insurance Type Payer Benefit Subscriber ID Effective Phone Address Plan / Dates Group Medicare [facility] [id number] 2018- MANAGED MEDICARE HEALTHCARE Present DUAL COMPLETE [facility] Medicaid [facility] [place] MEDICAID xxxxxxxxx 2019-P [phone] P [address] [facility] [address] [place] [address] ([place]) [place] [address] documented as of this encounter 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
--- OUTSIDE RECORDS SUMMARY | 2019-12-13 15:31 | XMS REPORT | Summary of Care ---
Author Author [facility] - Health Organization [facility] - Health Address Unknown Phone Unavailable Care Team Providers Care Marketing Programs Manager Name Role Phone Ovidio Clarke MD PCP Reason for Visit * Reason Comments Talk To Nurse Encounter Details Care Team Description Date Type Department Omar Clay, DO [address] [place], [place] [address] Talk To Nurse 08/20/2019 Telephone [facility] Health Interna l Medicine Rheumatology[facility] [facility] [address], [address] [place] [address] Allergies Comments Active Allergy Reactions Severity Noted Date Aspirin Hives 03/21/2012 Sulfa (Sulfonamide Hives 11/29/2005 Antibiotics) documented as of this encounter (statuses as of 08/21/2019) Medications End Date Status Medication Sig Dispensed [...] as of this encounter (statuses as of 08/21/2019) Active Problems Problem Noted Date Essential hypertension 03/19/2019 Carpal tunnel syndrome on right 03/19/2019 Overview: EMG 02/18/2019 Special screening for malignant neoplasms, colon Overview: Added automatically from request for [facility] [id number] Cervical spondylosis with radiculopathy 01/01/2019 Overview: Added automatically from request for [facility] [id number] Mixed hyperlipidemia 08/13/2018 Overview: LDL 140 07/17/2018 Left tennis elbow 06/17/2018 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 Overview: R Avulsion fracture of lateral epicondyle of humerus 0 11/14/2017 Painful patella, unspecified laterality 11/05/2017 S/P revision of total hip 09/18/2017 Colon cancer screening 05/24/2017 Overview: Added automatically from request for [facility] [id number] Hematemesis with nausea 05/24/2017 Overview: Added automatically from request for [facility] [id number] Nausea and vomiting, intractability of vomiting not s pecified, unspecified 05/24/2017 vomiting type Overview: Added automatically from request for [facility] [id number] ANJELICA (obstructive sleep apnea) 05/10/2017 Obesity (BMI 30-39.9) 05/01/2017 Microhematuria 02/14/2017 Complex tear of medial meniscus of right knee as curr ent injury, initial 01/18/2017 encounter Overview: Added automatically from request for [employer] [id number] Elevated MCV 07/25/2016 Overview: 103.4 07/22/2016 Muscle [...] lobe nodular opacitiy on chest xray at [facility] 05/22/2015 Hiatus hernia syndrome 04/09/2015 Overview: [...] lower leg 11/25/2013 Overview: ICD10 Diagnosis 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 Knee crepitus 11/25/2013 Genu valgum, acquired 11/25/2013 Overview: ICD10 Diagnosis 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 Patellofemoral misalignment with pain 11/25/2013 Primary [...] 11/16/2010 Headache 04/08/2010 Overview: ICD10 Diagnosis 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 Nonerosive nonspecific gastritis 04/08/2010 Overview: EGD Dr. Lloyd Glossitis 02/23/2010 Tobacco use disorder 02/23/2010 Menorrhagia 05/19/2009 Vision blurred 05/19/2009 Acute upper respiratory infection 08/14/2008 Overview: ICD10 Diagnosis 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 Acute pharyngitis 08/14/2008 Screening for malignant neoplasm of cervix 9 Overview: ICD10 Diagnosis 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 Breast screening 07/16/2008 Overview: ICD10 Diagnosis 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 Urinary tract infection, site not specified 04/29/20 08 Backache 06/02/2007 Overview: Lower back pain ICD10 Diagnosis 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 Pain in joint 06/02/2007 Overview: ICD10 Diagnosis 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 Cervicalgia 06/02/2007 Myalgia and myositis 06/02/2007 Overview: Bilateral trapezius pain ICD10 Diagnosis 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 Absence of menstruation 04/25/2007 Anemia 03/25/2007 Overview: ICD10 Diagnosis 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 Utility Helicobacter pylori infection 06/11/2006 Overview: ICD10 Diagnosis 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 [employer] Acute peptic ulcer 06/11/2006 Overview: ICD10 Diagnosis 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 Abdominal pain 04/25/2006 Overview: ICD10 Diagnosis 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 [employer] Ankylosing spondylitis 04/25/2006 Vaginitis and vulvovaginitis 04/25/2006 Overview: ICD10 Diagnosis 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 Other, mixed, or unspecified nondependent drug abuse, continuous 11/30/2005 documented as of this encounter (statuses as of 08/21/2019) Resolved Problems Problem Noted Date Resolved Date Arm laceration, right, subsequent encounter 04/13/2014 04/13/2014 Syncope and collapse 02/27/2007 06/28/2014 Bipolar I disorder, most recent episode (or current) unspec ified 01/03/2007 01/23/2018 Overview: Dr. 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 [place] [phone] 09/01/2019 Office [place] [address] [place] [phone] 09/18/2019 Office Visit Family Medicine Giuliano Gardner, STEAM FRAME OPERATOR [address] [place] [address] [phone] 09/23/2019 Office Visit Orthopedic Surgery Sebastian Doe MD [address] [facility] [address] [place] [address] [phone] 10/28/2019 Office Visit Pain Medicine Omar Clay, DO [address] [place] [address] [phone] 11/18/2019 Office Visit Rheumatology Health Maintenance Due [...] UH1-44-28 / 0 / [id number] Bipolar Head, [place] Uhr Bipolar BIPOLAR Right: Hip Donal 94n34ao #Uh1-44-28 - S0 head Implanted: Qty: 1 on 09/18/2017 by Sebastian Bunn MD at [facility] 07/07/2021 1023-12 / [id number] / [id number] Cancellous Cubes, Community Tissue BONE Right: [facility] Services Freeze Dried 30 Cc Tissue #1023-12 - [id number] Services Implanted: Qty: 1 on 09/18/2017 by Sebastian Bunn MD at [facility] 03/08/2018 2018-40 / [id number] / [id number] Dbm Putty Maxxeus 10cc Cts #2018-40 BONE Right: Hip [facility] - [id number] Tissue Implanted: Qty: 1 on 09/18/2017 by Services Sebastian Bunn MD at [facility] 04/07/2022 1365-28-720 / 0 / [id number] Delta Ceramic Femoral Head 28mm +5 Head Right: Hip Depuy 06/21 Taper Depuy Ref#[id number] Synthes Implanted: Qty: 1 on 09/18/2017 by Sebastian Bunn MD at [facility] 03/29/2022 623-00-44F / 0 / [id number] Insert, [place] Trident 0deg 44mm Liner Right: Hip [place] #623-00-44f Implanted: Qty: 1 on 09/18/2017 by Sebastian Bunn MD at [facility] 04/24/2022 5260-5-050 / 0 / [id number] Screw Osteolock 3.[address] SCREW Right: Hip Donal Cancellous 50mm [place] Ref#5260-5-050 Implanted: Qty: 2 on 09/18/2017 by Sebastian Bunn MD at [facility] 06/01/2022 5260-5-020 / 0 / [id number] Screw Ostelock 3.[address] SCREW Right: Hip [place] Cancellous 20mm [place] Ref#5260-5-020 Implanted: Qty: 1 on 09/18/2017 by Sebastian Bunn MD at [facility] 06/01/2022 5260-5-016 / 0 / [id number] Screw Osteolock 3.[address] SCREW Right: Hip Donal Cancellous 18mm [place] Ref#[id number] Implanted: Qty: 1 on 09/18/2017 by Sebastian Bunn MD at [facility] 01/02/2022 509-02-60F / 0 / [id number] Shell, [place] Tritanium Revision Shell Right: Hip Donal Acetabular #509-02-60f - S0 Implanted: Qty: 1 on 09/18/2017 by Sebastian Bunn MD at [facility] documented as of this encounter Results Not on filedocumented in this encounter Insurance Type Payer Benefit Subscriber ID Effective Phone Address Plan / Dates Group Medicare Adv O [facility] [id number] 2018- MANAGED MEDICARE HEALTHCARE Present DUAL COMPLETE [facility] [id number] 2018- [address] BOX SOLUTIONS H Present [address] [place] [address] Medicaid [facility] MEDICAID xxxxxxxxx 2019-P [phone] [address] [place] [facility] [address] [place] [address] documented as of this encounter 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
--- OUTSIDE RECORDS SUMMARY | 2019-12-13 15:31 | XMS REPORT | Clinical Summary ---
Author Author [facility] - [facility] Organization [facility] - [facility] Address Unknown Phone Unavailable Care Team Providers Care Binder Stripper Machine Name Role Phone Ovidio Clarke MD PCP [...] unspecified bedtime as type needed for Insomnia. 07/22/2019 HYDROcodone-acetaminophen Take 1 tablet 15 tablet 0 5-325 mg by mouth 0 tabletIndications: Carpal every 6 (six) tunnel syndrome on right hours as needed for Pain (scale 4-6) or Pain (scale 7-10) for up to 7 days. Active Problems Problem Noted Date Essential hypertension 03/19/2019 Carpal tunnel syndrome on right 03/19/2019 Overview: EMG 02/18/2019 Special screening for malignant neoplasms, colon Overview: Added automatically from request for [employer] [id number] Cervical spondylosis with radiculopathy 01/01/2019 Overview: Added automatically from request for [employer] 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 [id number] Hematemesis with nausea 05/24/2017 Overview: Added automatically from request for [employer] [id number] Nausea and vomiting, intractability of vomiting not s pecified, unspecified 05/24/2017 vomiting type Overview: Added automatically from request for [employer] [id number] ANJELICA (obstructive sleep apnea) 05/10/2017 Obesity (BMI 30-39.9) 05/01/2017 Microhematuria 02/14/2017 Complex tear of medial meniscus of right knee as curr ent injury, initial 01/18/2017 encounter Overview: Added automatically from request for [employer] [id number] Elevated MCV 07/25/2016 Overview: 103.4 07/22/2016 Muscle [...] lower leg 11/25/2013 Overview: ICD10 Diagnosis Term Lan Support Specialist Utility Knee crepitus 11/25/2013 Genu valgum, acquired 11/25/2013 Overview: ICD10 Diagnosis Term Lan Support Specialist Utility Patellofemoral misalignment with pain 11/25/2013 Primary [...] 11/16/2010 Headache 04/08/2010 Overview: ICD10 Diagnosis Term Lan Support Specialist Utility Nonerosive nonspecific gastritis 04/08/2010 Overview: EGD Dr. Lloyd Glossitis 02/23/2010 Tobacco use disorder 02/23/2010 Menorrhagia 05/19/2009 Vision blurred 05/19/2009 Acute upper respiratory infection 08/14/2008 Overview: ICD10 Diagnosis Term Lan Support Specialist Utility Acute pharyngitis 08/14/2008 Screening for malignant neoplasm of cervix 9 Overview: ICD10 Diagnosis Term Lan Support Specialist Utility Breast screening 07/16/2008 Overview: ICD10 Diagnosis Term Lan Support Specialist Utility Urinary tract infection, site not specified 04/29/20 08 Backache 06/02/2007 Overview: Lower back pain ICD10 Diagnosis Term Lan Support Specialist Utility Pain in joint 06/02/2007 Overview: ICD10 Diagnosis Term Lan Support Specialist Utility Cervicalgia 06/02/2007 Myalgia and myositis 06/02/2007 Overview: Bilateral trapezius pain ICD10 Diagnosis Term Lan Support Specialist Utility Absence of menstruation 04/25/2007 Anemia 03/25/2007 Overview: ICD10 Diagnosis Term Lan Support Specialist Utility Helicobacter pylori infection 06/11/2006 Overview: ICD10 Diagnosis Term Lan Support Specialist Utility Acute peptic ulcer 06/11/2006 Overview: ICD10 Diagnosis Term Lan Support Specialist Utility Abdominal pain 04/25/2006 Overview: ICD10 Diagnosis Term Lan Support Specialist Utility Ankylosing spondylitis 04/25/2006 Vaginitis and vulvovaginitis 04/25/2006 Overview: ICD10 Diagnosis Term Lan Support Specialist Utility Other, mixed, or unspecified nondependent drug abuse, continuous 11/30/2005 Resolved Problems Problem Noted Date Resolved Date Arm laceration, right, subsequent encounter 04/13/2014 04/13/2014 Syncope and collapse 02/27/2007 06/28/2014 Bipolar I disorder, most recent episode (or current) unspec ified 01/03/2007 01/23/2018 Overview: Dr. 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 11/30/2005 02/11/2018 Overview: ICD10 Diagnosis Term Lan Support Specialist Utility Encounters Care Team Description Date Type Specialty Omar Clay DO Orders (updated infusion order needed fo r Remicade) 08/14/2019 Telephone Rheumatology Ovidio Clarke Jr., MD Refill Request 08/13/2019 Refill Family Medicine Omar Clay DO Refill Request 08/12/2019 Refill Rheumatology Giuliano Gardner FNP V[facility]-Lab Postmenopausal bone loss 07/31/2019 Welding Equipment Sales Representative Phlebotomy Visit Giuliano Gardner FNP Carpal tunnel syndrome on right (Primary Dx); Postmenopausal bone loss; Ankylosing spondylitis of multiple sites in spine 07/31/2019 Office Visit Orthopedic Surgery Sebastian Doe MD Cervical spondylosis with radiculopathy (Primary Dx); Ankylosing spondylitis, unspecified site of spine; Carpal tunnel syndrome of right wrist; Chronic pain syndrome 07/29/2019 Office Visit Pain Medicine Doctor Unassigned, [place] 07/28/2019 Orders Only Robert Chandler MD Shabot, Sarah, MD 07/15/2019 Anesthesia Surgery Event Zia Resendez MD OPEN CARPAL TUNNEL RELEASE 07/15/2019 Surgery Surgery Zia Resendez MD 07/15/2019 Hospital Surgery Encounter Zia Resendez MD Appointment (2wk surgery F/U) 07/15/2019 Telephone Orthopedic Surgery Doctor Unassigned, [place] 07/15/2019 Orders Only Ovidio Clarke Jr., MD Rx Concern/Question 07/04/2019 Telephone Family [facility] Omar Clay DO 3, Jennifer Adult Infusion Nurse Ankylosing spondylitis, unspecified site of spine (Primary Dx) 06/20/2019 Nurse Visit Infusion Therapy Doctor Unassigned, [place] 06/20/2019 Orders Only Ovidio Clarke Jr., MD [...] ) 06/18/2019 Telephone Orthopedic Surgery Doctor Unassigned, [place] 06/18/2019 Orders Only Zia Resendez MD Notification 06/11/2019 Telephone Orthopedic Surgery Ovidio Clarke Jr., MD Refill Request 06/06/2019 Refill Family Medicine Sebastian Doe MD Cervical spondylosis with radiculopathy (Primary Dx); Chronic pain syndrome; Carpal tunnel syndrome of right wrist; Ankylosing spondylitis, unspecified site of spine 06/04/2019 Office Visit Pain Medicine Doctor Unassigned, [place] 06/04/2019 Orders Only Zia Resendez MD Bilateral carpal tunnel syndrome (Primar y Dx) 06/03/2019 Office Visit Orthopedic Surgery Zia Resendez MD Appointment 06/03/2019 Telephone Orthopedic Surgery Omar Clay DO Refill Request 06/01/2019 Refill Rheumatology Ovidio Clarke Jr., MD Refill Request 05/27/2019 Refill Family Medicine Ovidio Verma MD 05/23/2019 Hospital Radiology Encounter Ovidio Clarke Jr., MD Refill Request 05/23/2019 Refill Family Medicine from Last 3 Months [...] Comments Vital Sign 103/62 07/31/2019 9:30 AM RUNNER MAN Blood Pressure 104 07/31/2019 9:30 AM RUNNER MAN Pulse 35.9 C (96.7 F) 07/31/2019 9:30 AM RUNNER MAN Temperature 17 07/15/2019 2:25 PM RUNNER MAN Respiratory Rate 96% 07/29/2019 1:19 PM RUNNER MAN Oxygen Saturation - - Inhaled Oxygen Concentration 87.2 kg (192 lb 4.8 oz) 07/31/2019 9:30 AM RUNNER MAN Weight 165.1 cm (5' 5") 07/29/2019 1:19 PM RUNNER MAN Height 32 07/29/2019 1:19 PM RUNNER MAN Body Mass Index Plan of Treatment Care Team Description Date Type Specialty Omar Clay, [address] [place] [address] [phone] 08/19/2019 Office [place] [address] [place] [address] 09/18/2019 Office Visit Family Medicine Giuliano Gardner, [place] [address] [place] [address] [phone] 09/23/2019 Office Visit Orthopedic Surgery Sebastian Doe MD [id number] [place], [place] [id number] 10/28/2019 Office Visit Pain Medicine Health Maintenance [...] UH1-44-28 / 0 / [id number] Bipolar Head, [place] Uhr Bipolar BIPOLAR Right: Hip [place] 16q86th #Uh1-44-28 - S0 head Implanted: Qty: 1 on 09/18/2017 by Sebastian Bunn MD at [facility] 07/07/2021 1023-12 / [id number] / [id number] Cancellous Cubes, Community Tissue BONE Right: Hip Community Services Freeze Dried 30 Cc Tissue #1023-12 - [id number] Services Implanted: Qty: 1 on 09/18/2017 by Sebastian Bunn MD at [facility] 03/08/2018 2018-40 / [id number] / [id number] Dbm Putty Maxxeus 10cc Cts #2018-40 BONE Right: Hip [facility] - [id number] Tissue Implanted: Qty: 1 on 09/18/2017 by Services Sebastian Bunn MD at [facility] 04/07/2022 1365-28-720 / 0 / [id number] Delta Ceramic Femoral Head 28mm +5 Head Right: Hip Depuy 06/21 Taper Depuy Ref#[id number] Synthes Implanted: Qty: 1 on 09/18/2017 by Sebastian Bunn MD at [facility] 03/29/2022 623-00-44F / 0 / [id number] Insert, Donal Trident 0deg 44mm Liner Right: Hip [place] #[id number] Implanted: Qty: 1 on 09/18/2017 by Sebastian Bunn MD at [facility] 04/24/2022 5260-5-050 / 0 / [id number] Screw Osteolock [address] SCREW Right: Hip Donal Cancellous 50mm Donal Ref#[id number] Implanted: Qty: 2 on 09/18/2017 by Sebastian Bunn MD at [facility] 06/01/2022 5260-5-020 / 0 / [id number] Screw Ostelock 3.[address] SCREW Right: Hip Donal Cancellous 20mm [place] Ref#[id number] Implanted: Qty: 1 on 09/18/2017 by Sebastian Bunn MD at [facility] 06/01/2022 5260-5-016 / 0 / [id number] Screw Osteolock 3.[address] SCREW Right: Hip Donal Cancellous 18mm Donal Ref#[id number] Implanted: Qty: 1 on 09/18/2017 by Sebastian Bunn MD at [facility] 01/02/2022 509-02-60F / 0 / [id number] Shell, [place] Tritanium Revision Shell Right: Hip [place] Acetabular #[id number] - S0 Implanted: Qty: 1 on 09/18/2017 by Sebastian Bunn MD at [facility] Procedures Comments Procedure Name Priority Date/Time Associated Diag nosis MAGNESIUM Routine 07/31/2019 Postmenopausal bone loss 10:15 AM RUNNER MAN VITAMIN B12, LEVEL Routine 07/31/2019 Postmenopau marjorie bone loss 10:15 AM RUNNER MAN INTACT PTH CALCIUM GROUP Routine 07/31/2019 Postm enopausal bone loss 10:15 AM RUNNER MAN VITAMIN D, 25-OH Routine 07/31/2019 Postmenopausa l bone loss 10:15 AM RUNNER MAN PHYSICIAN CERTIFICATION Routine 07/29/2019 STATEMENT 12:01 AM RUNNER MAN REFERRAL- Routine 07/28/2019 REQUEST/RESPONSE 12:01 AM RUNNER MAN INTUBATION Routine 07/15/2019 1:20 PM RUNNER MAN OPEN CARPAL TUNNEL Level 5 07/15/2019 Right carpa l tunnel RELEASE (greater 12:58 PM RUNNER MAN syndrome than 5 days) CONSENT/REFUSAL FOR Routine 07/15/2019 DIAGNOSIS AND TREATMENT 10:51 AM RUNNER MAN ASSIGNMENT OF BENEFITS Routine 07/15/2019 10:51 AM RUNNER MAN DAY SURGERY - VICTORY Routine 07/15/2019 LAKES 12:01 AM RUNNER MAN EXTERNAL PROVIDER RECORDS Routine 06/20/2019 12:01 AM RUNNER MAN FLU VACC ([id number]), 6+ Routine 06/19/2019 Influ tin vaccine needed MONTHS, IM, QUAD 11:21 AM RUNNER MAN CONSENT/REFUSAL FOR Routine 06/18/2019 DIAGNOSIS AND TREATMENT 8:10 AM RUNNER MAN ASSIGNMENT OF BENEFITS Routine 06/18/2019 8:09 AM RUNNER MAN PATIENT QUESTIONNAIRE Routine 06/04/2019 12:01 AM RUNNER MAN MR CERVICAL SPINE WO Routine 05/23/2019 Cervical radiculopathy CONTRAST 2:36 PM RUNNER MAN from Last 3 Months Results * VITAMIN D, 25-OH (07/31/2019 10:15 AM RUNNER MAN) VIT D 25OH 18 (L) 25 - 80 ng/mL [facility] Specimen Blood Narrative Performed At Deficiency: <20 ng/mL [facility] Insufficiency: 20-24 ng/mL SERVICES Optimal: 25-80 ng/mL Performing Organization Address City/State/Zipcode Ph one Number [facility] CLIA: [id number], [address] [place] [address] [facility] * INTACT PTH CALCIUM GROUP (07/31/2019 10:15 AM RUNNER MAN) CALCIUM 9.9 8.6 - 10.6 mg/dL [facility] RY SERVICES PTH-INTACT 62.3 12.0 - 88.0 pg/mL [facility] ORY SERVICES PTH-CA Comment: PTH IS Appropriate [facility] Interpretation for Calcium SERVICES Specimen Blood Performing Organization Address City/State/[facility] Ph one Number [facility] CLIA: [id number], [address] [place] [address] [facility] * VITAMIN B12, LEVEL (07/31/2019 10:15 AM RUNNER MAN) VIT B12 345 240 - 930 pg/mL [facility] SERVICES Specimen Blood Narrative Performed At Biotin has been reported to cause a pos itive bias, interpret results relative to [facility] patient's use of biotin. SERVICES Performing Organization Address City/[facility] Ph one Number [facility] CLIA: [id number], [address] [place] [address] [facility] * MAGNESIUM (07/31/2019 10:15 AM RUNNER MAN) MAGNESIUM 2.1 1.7 - 2.4 mg/dL [facility] Specimen Blood Performing Organization Address City/State/[facility] Ph one Number [facility] CLIA: [id number], [address] [place], [place] [address] [facility] * PHYSICIAN CERTIFICATION STATEMENT (07/29/2019 12:01 AM RUNNER MAN) Specimen Performing Organization Address City/State/Zipcode Ph one Number HIM * REFERRAL- REQUEST/RESPONSE (07/28/2019 12:01 AM RUNNER MAN) Specimen Performing Organization Address City/State/Zipcode Ph one Number HIM * Intubation (07/15/2019 1:20 PM RUNNER MAN) Narrative Performed At Diana Sorensen CRNA 07/15/2019 1: 20 PM Intubation Date/Time: 07/15/2019 1:10 PM Urgency: elective Airway not difficult General Information and Staff Patient location during procedure: OR Anesthesiologist: Robert Chandler Ei, MD Indications and Patient Condition Indications for airway management: anes thesia and airway protection Spontaneous Ventilation: absent Sedation level: deep Preoxygenated: yes Patient position: sniffing MILS maintained throughout Mask difficulty assessment: 1 - vent by mask Final Airway Details Final airway type: supraglottic airway Successful airway: Size 4 (iGEL) Airway Seal Pressure (cm H2O): 20 Number of attempts at approach: 1 Number of other approaches attempted: 0 Additional Comments LMA inserted easily. * CONSENT/REFUSAL FOR DIAGNOSIS AND TREATMENT (07/15/2019 10:51 AM RUNNER MAN) Only the most recent of 2 results within the time period is included. Specimen Performing Organization Address [facility] Ph one Number HIM * ASSIGNMENT OF BENEFITS (07/15/2019 10:51 AM RUNNER MAN) Only the most recent of 2 results within the time period is included. Specimen Performing Organization Address [facility] Ph one Number HIM * [facility] (07/15/2019 12:01 AM RUNNER MAN) Specimen Performing Organization Address [facility] Ph one Number [facility] * EXTERNAL PROVIDER RECORDS (06/20/2019 12:01 AM RUNNER MAN) Specimen Performing Organization Address [facility] Ph one Number HIM * PATIENT QUESTIONNAIRE (06/04/2019 12:01 AM RUNNER MAN) Specimen Performing Organization Address [facility] Ph one Number HIM * MR CERVICAL SPINE WO CONTRAST (05/23/2019 2:36 PM RUNNER MAN) Specimen Impressions Performed At Impression: PACS/VR/DOSE Multilevel [...] Results Inft User - 05/23/2019 8:53 PM RUNNER MAN Exam: MR CERVICAL SPINE WO CONTRAST Clinical [...] with the above report. Performing Organization Address City/State/[facility] Ph one Number PACS/VR/DOSE from Last 3 Months Insurance Type Payer Benefit Subscriber ID Effective Phone Address Plan / Dates Group Medicare Adv O [facility] [id number] 2018- MANAGED MEDICARE HEALTHCARE Present DUAL COMPLETE HMO [facility] [id number] 2018- [address] SOLUTIONS H Present [address] [place] [address] Medicaid [facility] MEDICAID xxxxxxxxx 2019-P [phone] [address] [facility] [address] [place] [address] Juan Tinoco [facility] Self 1965 [address] ([place]) [place] [address] Advance Directives Patient Tank Car Reconditioner Explanation Type Date Recorded 0 Advance Directives 08/08/2013 8:00 AM and Living Will Power of Asset Protection Officer 08/08/2013 8:00 AM
--- OUTSIDE RECORDS SUMMARY | 2019-12-13 15:31 | XMS REPORT | Summary of Care ---
Author Author [facility] - Health Organization [facility] - Health Address Unknown Phone Unavailable Care Team Providers Care Finished Yarn Examiner Name Role Phone Ovidio Clarke MD PCP Encounter Details Care Team Description Date Type Department Doctor Unassigned, [place] [address] [place] [address] 07/28/2019 Orders Only [facility] [address] [place] [address] Allergies Comments Active Allergy Reactions Severity Noted Date Aspirin Hives 03/21/2012 Sulfa (Sulfonamide Hives 11/29/2005 Antibiotics) documented as of this encounter (statuses as of 07/29/2019) Medications End Date Status Medication Sig Dispensed [...] as of this encounter (statuses as of 07/29/2019) Active Problems Problem Noted Date Essential hypertension 03/19/2019 Carpal tunnel syndrome on right 03/19/2019 Overview: EMG 02/18/2019 Special screening for malignant neoplasms, colon Overview: Added automatically from request for marquez Hermes IQ [id number] Cervical spondylosis with radiculopathy 01/01/2019 Overview: Added automatically from request for marquez Hermes IQ [id number] Mixed hyperlipidemia 08/13/2018 Overview: LDL 140 07/17/2018 Left tennis elbow 06/17/2018 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 Overview: R Avulsion fracture of lateral epicondyle of humerus 0 11/14/2017 Painful patella, unspecified laterality 11/05/2017 S/P revision of total hip 09/18/2017 Colon cancer screening 05/24/2017 Overview: Added automatically from request for marquez Hermes IQ [id number] Hematemesis with nausea 05/24/2017 Overview: Added automatically from request for marquez Hermes IQ [id number] Nausea and vomiting, intractability of vomiting not s pecified, unspecified 05/24/2017 vomiting type Overview: Added automatically from request for Ti Knight [id number] ANJELICA (obstructive sleep apnea) 05/10/2017 Obesity (BMI 30-39.9) 05/01/2017 Microhematuria 02/14/2017 Complex tear of medial meniscus of right knee as curr ent injury, initial 01/18/2017 encounter Overview: Added automatically from request for marquez Hermes IQ [id number] Elevated MCV 07/25/2016 Overview: 103.4 07/22/2016 Muscle [...] on chest xray at [facility] 05/22/2015 Hiatus hernia syndrome 04/09/2015 Overview: EGD 03/23/2015 [facility] screening mammogram 01/06/2015 Immunization deficiency [...] lower leg 11/25/2013 Overview: ICD10 Diagnosis Term Director Of Cardiac Cath Lab Utility Knee crepitus 11/25/2013 Genu valgum, acquired 11/25/2013 Overview: ICD10 Diagnosis Term Director Of Cardiac Cath Lab Utility Patellofemoral misalignment with pain 11/25/2013 Primary [...] 11/16/2010 Headache 04/08/2010 Overview: ICD10 Diagnosis Term Director Of Cardiac Cath Lab Utility Nonerosive nonspecific gastritis 04/08/2010 Overview: EGD Dr. Lloyd Glossitis 02/23/2010 Tobacco use disorder 02/23/2010 Menorrhagia 05/19/2009 Vision blurred 05/19/2009 Acute upper respiratory infection 08/14/2008 Overview: ICD10 Diagnosis Term Director Of Cardiac Cath Lab Utility Acute pharyngitis 08/14/2008 Screening for malignant neoplasm of cervix 9 Overview: ICD10 Diagnosis Term Director Of Cardiac Cath Lab Utility Breast screening 07/16/2008 Overview: ICD10 Diagnosis Term Director Of Cardiac Cath Lab Utility Urinary tract infection, site not specified 04/29/20 08 Backache 06/02/2007 Overview: Lower back pain ICD10 Diagnosis Term Director Of Cardiac Cath Lab Utility Pain in joint 06/02/2007 Overview: ICD10 Diagnosis Term Director Of Cardiac Cath Lab Utility Cervicalgia 06/02/2007 Myalgia and myositis 06/02/2007 Overview: Bilateral trapezius pain ICD10 Diagnosis Term Director Of Cardiac Cath Lab Utility Absence of menstruation 04/25/2007 Anemia 03/25/2007 Overview: ICD10 Diagnosis Term Director Of Cardiac Cath Lab Utility Helicobacter pylori infection 06/11/2006 Overview: ICD10 Diagnosis Term Director Of Cardiac Cath Lab Utility Acute peptic ulcer 06/11/2006 Overview: ICD10 Diagnosis Term Director Of Cardiac Cath Lab Utility Abdominal pain 04/25/2006 Overview: ICD10 Diagnosis Term Director Of Cardiac Cath Lab Utility Ankylosing spondylitis 04/25/2006 Vaginitis and vulvovaginitis 04/25/2006 Overview: ICD10 Diagnosis Term Director Of Cardiac Cath Lab Utility Other, mixed, or unspecified nondependent drug abuse, continuous 11/30/2005 documented as of this encounter (statuses as of 07/29/2019) Resolved Problems Problem Noted Date Resolved Date Arm laceration, right, subsequent encounter 04/13/2014 04/13/2014 Syncope and collapse 02/27/2007 06/28/2014 Bipolar I disorder, most recent episode (or current) unspec ified 01/03/2007 01/23/2018 Overview: Dr. 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 [place], [place] [address] Day Ndiaye MD [address] [place] [address]. [place] [address] 07/30/2019 Office Visit Psychiatry JjGiuliano, ENTERPRISE ACCOUNT EXECUTIVE [address] [place] [address] [phone] 07/31/2019 Office Visit Orthopedic Surgery 3Jennifer Adult Infusion Nurse 08/15/2019 Nurse [place] [address] [place] [phone] 09/18/2019 Office Visit Family Medicine Health Maintenance [...] UH1-44-28 / 0 / [id number] Bipolar Head, [place] Uhr Bipolar BIPOLAR Right: Hip Donal 83h94vb #Uh1-44-28 - S0 head Implanted: Qty: 1 on 09/18/2017 by Sebastian Bunn MD at [facility] 07/07/2021 1023-12 / [id number] / [id number] Cancellous Cubes, Community Tissue BONE Right: Hip [facility] Freeze Dried 30 Cc Tissue #1023-12 - [id number] Services Implanted: Qty: 1 on 09/18/2017 by Sebastian Bunn MD at [facility] 03/08/2018 2018-40 / [id number] / [id number] Dbm Putty Maxxeus 10cc Cts #2018-40 BONE Right: Hip [facility] - [id number] Tissue Implanted: Qty: 1 on 09/18/2017 by Services Sebastian Bunn MD at [facility] 04/07/2022 1365-28-720 / 0 / [id number] Delta Ceramic Femoral Head 28mm +5 Head Right: Hip Depuy 06/21 Taper Depuy Ref#1365-28-720 Synthes Implanted: Qty: 1 on 09/18/2017 by Sebastian Bunn MD at [facility] 03/29/2022 623-00-44F / 0 / [id number] Insert, [place] Trident 0deg 44mm Liner Right: Hip Donal #623-00-44f Implanted: Qty: 1 on 09/18/2017 by Sebastian Bunn MD at [facility] 04/24/2022 5260-5-050 / 0 / [id number] Screw Osteolock 3.[address] SCREW Right: Hip [place] Cancellous 50mm [place] Ref#5260-5-050 Implanted: Qty: 2 on 09/18/2017 by Sebastian Bunn MD at [facility] 06/01/2022 5260-5-020 / 0 / [id number] Screw Ostelock 3.[address] SCREW Right: Hip Donal Cancellous 20mm [place] Ref#5260-5-020 Implanted: Qty: 1 on 09/18/2017 by Sebastian Bunn MD at [facility] 06/01/2022 5260-5-016 / 0 / [id number] Screw Osteolock 3.[address] SCREW Right: Hip Donal Cancellous 18mm Donal Ref#[id number] Implanted: Qty: 1 on 09/18/2017 by Sebastian Bunn MD at [facility] 01/02/2022 509-02-60F / 0 / [id number] Shell, [place] Tritanium Revision Shell Right: Hip [place] Acetabular #509-02-60f - S0 Implanted: Qty: 1 on 09/18/2017 by Sebastian Bunn MD at [facility] documented as of this encounter Procedures Comments Procedure Name Priority Date/Time Associated Diag nosis REFERRAL- Routine 07/28/2019 REQUEST/RESPONSE 12:01 AM SHAREPOINT NET DEVELOPER documented in this encounter Results Not on filedocumented in this encounter Insurance Type Payer Benefit Subscriber ID Effective Phone Address Plan / Dates Group Medicare Adv O [facility] [id number] 2018- MANAGED MEDICARE HEALTHCARE Present DUAL COMPLETE HMO [facility] [id number] 2018- P O BOX SOLUTIONS Present [address] [place] [address] Medicaid [facility] MEDICAID xxxxxxxxx 2019-P [phone] [address] [place] [id number] [place] [address] documented as of this encounter Advance Directives 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
--- OUTSIDE RECORDS SUMMARY | 2019-12-13 15:31 | XMS REPORT | Summary of Care ---
Author Author [facility] - Health Organization [facility] - Health Address Unknown Phone Unavailable Care Team Providers Care Reliability Technicians Name Role Phone Ovidio Clarke MD PCP Reason for Visit * Reason Comments LAB WORK Encounter Details Care Team Description Date Type Department Giuliano Gardner, LITIGATION SECRETARY [address] [place], [place] [id number] Vls-Lab Postmenopausal bone loss 07/31/2019 Irrigation System Installer [facility] Visit PHLEBOTOMY/LAB [address] [facility] [address] [place] [address] Allergies Comments Active Allergy Reactions Severity Noted Date Aspirin Hives 03/21/2012 Sulfa (Sulfonamide Hives 11/29/2005 Antibiotics) documented as of this encounter (statuses as of 07/31/2019) Medications End Date Status Medication Sig Dispensed [...] as of this encounter (statuses as of 07/31/2019) Active Problems Problem Noted Date Essential hypertension 03/19/2019 Carpal tunnel syndrome on right 03/19/2019 Overview: EMG 02/18/2019 Special screening for malignant neoplasms, colon Overview: Added automatically from request for linkedü [id number] Cervical spondylosis with radiculopathy 01/01/2019 Overview: Added automatically from request for linkedü [id number] Mixed hyperlipidemia 08/13/2018 Overview: LDL 140 07/17/2018 Left tennis elbow 06/17/2018 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 Overview: R Avulsion fracture of lateral epicondyle of humerus 0 11/14/2017 Painful patella, unspecified laterality 11/05/2017 S/P revision of total hip 09/18/2017 Colon cancer screening 05/24/2017 Overview: Added automatically from request for linkedü [id number] Hematemesis with nausea 05/24/2017 Overview: Added automatically from request for linkedü [id number] Nausea and vomiting, intractability of vomiting not s pecified, unspecified 05/24/2017 vomiting type Overview: Added automatically from request for linkedü [id number] ANJELICA (obstructive sleep apnea) 05/10/2017 Obesity (BMI 30-39.9) 05/01/2017 Microhematuria 02/14/2017 Complex tear of medial meniscus of right knee as curr ent injury, initial 01/18/2017 encounter Overview: Added automatically from request for jimmy solorio [id number] Elevated MCV 07/25/2016 Overview: 103.4 07/22/2016 Muscle [...] opacitiy on chest xray at [facility] 05/22/2015 Hiatus hernia syndrome 04/09/2015 Overview: [...] lower leg 11/25/2013 Overview: ICD10 Diagnosis Term Steam Box 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 Knee crepitus 11/25/2013 Genu valgum, acquired 11/25/2013 Overview: ICD10 Diagnosis Term Steam Box 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 Patellofemoral misalignment with pain 11/25/2013 [...] 11/16/2010 Headache 04/08/2010 Overview: ICD10 Diagnosis Term Steam Box 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 Lloyd Glossitis 02/23/2010 Tobacco use disorder 02/23/2010 Menorrhagia 05/19/2009 Vision blurred 05/19/2009 Acute upper respiratory infection 08/14/2008 Overview: ICD10 Diagnosis Term Steam Box 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 Acute pharyngitis 08/14/2008 Screening for malignant neoplasm of cervix 9 Overview: ICD10 Diagnosis Term Steam Box 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 Breast screening 07/16/2008 Overview: ICD10 Diagnosis Term Steam Box 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 Urinary tract infection, site not specified 04/29/20 08 Backache 06/02/2007 Overview: Lower back pain ICD10 Diagnosis Term Steam Box 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 Pain in joint 06/02/2007 Overview: ICD10 Diagnosis Term Steam Box 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 Cervicalgia 06/02/2007 Myalgia and myositis 06/02/2007 Overview: Bilateral trapezius pain ICD10 Diagnosis Term Steam Box 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 Absence of menstruation 04/25/2007 Anemia 03/25/2007 Overview: ICD10 Diagnosis Term Steam Box 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 Helicobacter pylori infection 06/11/2006 Overview: ICD10 Diagnosis Term Steam Box 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 Acute peptic ulcer 06/11/2006 Overview: ICD10 Diagnosis Term Steam Box 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 Abdominal pain 04/25/2006 Overview: ICD10 Diagnosis Term Steam Box 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 Ankylosing spondylitis 04/25/2006 Vaginitis and vulvovaginitis 04/25/2006 Overview: ICD10 Diagnosis Term Steam Box 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 Other, mixed, or unspecified nondependent drug abuse, continuous 11/30/2005 documented as of this encounter (statuses as of 07/31/2019) Resolved Problems Problem Noted Date Resolved Date Arm laceration, right, subsequent encounter 04/13/2014 04/13/2014 Syncope and collapse 02/27/2007 06/28/2014 Bipolar I disorder, most recent episode (or current) unspec ified 01/03/2007 01/23/2018 Overview: Dr. 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 11/30/2005 02/11/2018 Overview: ICD10 Diagnosis Term Steam Box 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 documented as of this encounter (statuses as of 07/31/2019) Immunizations Name Administration Dates Next Due Hepatitis [...] Description Date Type Specialty Giuliano Gardner FNP [address] [place] [address] [phone] Carpal tunnel syndrome on right (Primary Dx); Postmenopausal bone loss; Ankylosing spondylitis of multiple sites in spine 07/31/2019 Office Visit Orthopedic Surgery 3, Jennifer Adult Infusion Nurse 08/15/2019 Nurse [place] [address] [place] [phone] 09/18/2019 Office Visit Family Medicine JayRadhaGiuliano Goodson, LITIGATION SECRETARY [address] [place] [address] [phone] 09/23/2019 Office Visit Orthopedic Surgery Sebastian Doe MD [id number] [place] [address] [phone] 10/28/2019 Office Visit Pain Medicine Health Maintenance [...] Donal Uhr Bipolar BIPOLAR Right: Hip Donal 91h91tt #Uh1-44-28 - S0 head Implanted: Qty: 1 on 09/18/2017 by Sebastian Bunn MD at [facility] 07/07/2021 1023-12 / [id number] / [id number] Cancellous Cubes, Community Tissue BONE Right: Hip [facility] Freeze Dried 30 Cc Tissue #1023-12 - [id number] Services Implanted: Qty: 1 on 09/18/2017 by Sebastian Bunn MD at [facility] 03/08/2018 2018-40 / [id number] / [id number] Dbm Putty Maxxeus 10cc Cts #2017- BONE Right: Hip [facility] - [id number] Tissue Implanted: Qty: 1 on 09/18/2017 by Services Sebastian Bunn MD at [facility] 04/07/2022 1365-28-720 / 0 / [id number] Delta Ceramic Femoral Head 28mm +5 Head Right: Hip Depuy /14 Taper Depuy Ref#1365-28-720 Synthes Implanted: Qty: 1 on 09/18/2017 by Sebastian Bunn MD at [facility] 03/29/2022 623-00-44F / 0 / [id number] Insert, Donal Trident 0deg 44mm Liner Right: Hip Donal #623-00-44f Implanted: Qty: 1 on 09/18/2017 by Sebastian Bunn MD at [facility] 04/24/2022 5260-5-050 / 0 / [id number] Screw Osteolock 3.[address] SCREW Right: Hip Donal Cancellous 50mm [place] Ref#5260-5-050 Implanted: Qty: 2 on 09/18/2017 by Sebastian Bunn MD at [facility] 06/01/2022 5260-5-020 / 0 / [id number] Screw Ostelock 3.[address] SCREW Right: Hip [place] Cancellous 20mm Donal Ref#5260-5-020 Implanted: Qty: 1 on 09/18/2017 by Sebastian Bunn MD at [facility] 06/01/2022 5260-5-016 / 0 / [id number] Screw Osteolock 3.[address] SCREW Right: Hip [place] Cancellous 18mm Donal Ref#5260-5-016 Implanted: Qty: 1 on 09/18/2017 by Sebastian Bunn MD at [facility] 01/02/2022 509-02-60F / 0 / [id number] Shell, Donal Tritanium Revision Shell Right: Hip [place] Acetabular #509-02-60f - S0 Implanted: Qty: 1 on 09/18/2017 by Sebastian Bunn MD at [facility] documented as of this encounter Results Not on filedocumented in this encounter Visit Diagnoses Diagnosis Postmenopausal bone loss Senile osteoporosis documented in this encounter Insurance Type Payer Benefit Subscriber ID Effective Phone Address Plan / Dates Group Medicare [facility] [id number] 2018- MANAGED MEDICARE HEALTHCARE Present DUAL COMPLETE [facility] Medicaid [facility] MEDICAID xxxxxxxxx 2019-P [phone] P [address] [facility] [id number] [place] [address] documented as of this encounter Advance Directives Patient User Experience Manager Explanation Type Date Recorded 0 Advance Directives 08/08/2013 8:00 AM and Living Will Power of Emergency Management Specialist 08/08/2013 8:00 AM
--- OUTSIDE RECORDS SUMMARY | 2019-12-13 15:31 | XMS REPORT | Clinical Summary ---
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 Overview: R Avulsion fracture of lateral epicondyle of humerus 0 11/14/2017 Painful patella, unspecified laterality 11/05/2017 S/P revision of total hip 09/18/2017 Colon cancer screening 05/24/2017 Overview: Added automatically from request for [employer] [id number] Hematemesis with nausea 05/24/2017 Overview: Added automatically from request for [employer] [id number] Nausea and vomiting, intractability of vomiting not s pecified, unspecified 05/24/2017 vomiting type Overview: Added automatically from request for [employer] [id number] ANJELICA (obstructive sleep apnea) 05/10/2017 Obesity (BMI 30-39.9) 05/01/2017 Microhematuria 02/14/2017 Complex tear of medial meniscus of right knee as curr ent injury, initial 01/18/2017 encounter Overview: Added automatically from request for jimmy solorio [id number] Elevated MCV 07/25/2016 Overview: 103.4 07/22/2016 Muscle [...] lobe nodular opacitiy on chest xray at [facility] 05/22/2015 Hiatus hernia syndrome 04/09/2015 Overview: EGD 03/23/2015 [facility] screening mammogram 01/06/2015 Immunization deficiency 10/09/2014 [...] lower leg 11/25/2013 Overview: ICD10 Diagnosis Term Screener And Blender 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 Knee crepitus 11/25/2013 Genu valgum, acquired 11/25/2013 Overview: ICD10 Diagnosis Term Screener And Blender 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 Patellofemoral misalignment with pain 11/25/2013 [...] 11/16/2010 Headache 04/08/2010 Overview: ICD10 Diagnosis Term Screener And Blender 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 Lloyd Glossitis 02/23/2010 Tobacco use disorder 02/23/2010 Menorrhagia 05/19/2009 Vision blurred 05/19/2009 Acute upper respiratory infection 08/14/2008 Overview: ICD10 Diagnosis Term Screener And Blender 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 Acute pharyngitis 08/14/2008 Screening for malignant neoplasm of cervix 9 Overview: ICD10 Diagnosis Term Screener And Blender 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 Breast screening 07/16/2008 Overview: ICD10 Diagnosis Term Screener And Blender 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 Urinary tract infection, site not specified 04/29/20 08 Backache 06/02/2007 Overview: Lower back pain ICD10 Diagnosis Term Screener And Blender 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 Pain in joint 06/02/2007 Overview: ICD10 Diagnosis Term Screener And Blender 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 Cervicalgia 06/02/2007 Myalgia and myositis 06/02/2007 Overview: Bilateral trapezius pain ICD10 Diagnosis Term Screener And Blender 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 Absence of menstruation 04/25/2007 Anemia 03/25/2007 Overview: ICD10 Diagnosis Term Screener And Blender 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 Helicobacter pylori infection 06/11/2006 Overview: ICD10 Diagnosis Term Screener And Blender 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 Acute peptic ulcer 06/11/2006 Overview: ICD10 Diagnosis Term Screener And Blender 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 Abdominal pain 04/25/2006 Overview: ICD10 Diagnosis Term Screener And Blender 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 Ankylosing spondylitis 04/25/2006 Vaginitis and vulvovaginitis 04/25/2006 Overview: ICD10 Diagnosis Term Screener And Blender 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 Other, mixed, or unspecified nondependent drug abuse, continuous 11/30/2005 Resolved Problems Problem Noted Date Resolved Date Arm laceration, right, subsequent encounter 04/13/2014 04/13/2014 Syncope and collapse 02/27/2007 06/28/2014 Bipolar I disorder, most recent episode (or current) unspec ified 01/03/2007 01/23/2018 Overview: Dr. 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 11/30/2005 02/11/2018 Overview: ICD10 Diagnosis Term Screener And Blender 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 Encounters Care Team Description Date Type Specialty Ovidio Clarke Jr., MD Rx Concern/Question 07/04/2019 Telephone Family Medicine Omar Clay DO 3, Jennifer Adult Infusion Nurse Ankylosing spondylitis, unspecified site of spine (Primary Dx) 06/20/2019 Nurse Visit Infusion Therapy Doctor Unassigned, [place] 06/20/2019 Orders Only Ovidio Clarke Jr., MD [...] ) 06/18/2019 Telephone Orthopedic Surgery Doctor Unassigned, [place] 06/18/2019 Orders Only Zia Resendez MD Notification 06/11/2019 Telephone Orthopedic Surgery Ovidio Clarke Jr., MD Refill Request 06/06/2019 Refill Family Medicine Sebastian Doe MD Cervical spondylosis with radiculopathy (Primary Dx); Chronic pain syndrome; Carpal tunnel syndrome of right wrist; Ankylosing spondylitis, unspecified site of spine 06/04/2019 Office Visit Pain Medicine Doctor Unassigned, [place] 06/04/2019 Orders Only Zia Resendez MD Bilateral [...] Comments Vital Sign 125/73 06/20/2019 11:09 AM CONFERENCE ORGANIZER Blood Pressure 99 06/20/2019 11:09 AM CONFERENCE ORGANIZER Pulse 37.1 C (98.8 F) 06/20/2019 11:09 AM CONFERENCE ORGANIZER Temperature 18 06/20/2019 11:09 AM CONFERENCE ORGANIZER Respiratory Rate 98% 06/20/2019 11:09 AM CONFERENCE ORGANIZER Oxygen Saturation - - Inhaled Oxygen Concentration 87 kg (191 lb 12.8 oz) 06/30/2019 2:40 PM CONFERENCE ORGANIZER Weight 165.1 cm (5' 5") 06/11/2019 9:04 AM CONFERENCE ORGANIZER Height 31.92 06/11/2019 9:04 AM CONFERENCE ORGANIZER Body Mass Index Plan of Treatment Care Team Description Date Type Specialty Zia Resendez MD [id number] [place], [place] [id number] 07/15/2019 Hospital Surgery Encounter Sherley Ding MD [address] [id number] [place], [place] [address] 07/15/2019 Anesthesia Surgery Event Zia Resendez MD [address] [id number] [place], [place] [id number] OPEN CARPAL TUNNEL RELEASE 07/15/2019 Surgery Surgery Sebastian Doe MD [address] [facility] [id number] [place], [place] [address] 07/29/2019 Office Visit Pain Medicine 3, Jennifer Adult Infusion Nurse 08/15/2019 Nurse Visit [place] [address] [place] [address] 09/18/2019 Office Visit Family Medicine [...] Head, Donal Uhr Bipolar BIPOLAR Right: Hip Micanopy 42h58ul #[id number] - S0 head Implanted: Qty: 1 on 09/18/2017 by Sebastian Bunn MD at [facility] 07/07/2021 1023-12 / [id number] / [id number] Cancellous Cubes, Community Tissue BONE Right: Hip Community Services Freeze Dried 30 Cc Tissue #1023-12 - [id number] Services Implanted: Qty: 1 on 09/18/2017 by Sebastian Bunn MD at [facility] 03/08/2018 2018-40 / [id number] / [id number] Dbm Putfinesse Chaparros 10 Cts #2018-40 BONE Right: Hip [facility]ly [facility] - [id number] Tissue Implanted: Qty: 1 on 09/18/2017 by Services Sebastian Bunn MD at [facility] 04/07/2022 1365-28-720 / 0 / [id number] Delta Ceramic Femoral Head 28mm +5 Head Right: Hip Depuy 06/21 Taper Depuy Ref#[id number] Synthes Implanted: Qty: 1 on 09/18/2017 by Sebastian Bunn MD at [facility] 03/29/2022 623-00-44F / 0 / [id number] Insert, Donal Trident 0deg 44mm Liner Right: Hip Donal #[id number] Implanted: Qty: 1 on 09/18/2017 by Sebastian Bunn MD at [facility] 04/24/2022 5260-5-050 / 0 / [id number] Screw Osteolock 3.[address] SCREW Right: Hip Micanopy Cancellous 50mm Donal Ref#[id number] Implanted: Qty: 2 on 09/18/2017 by Sebastian Bunn MD at [facility] 06/01/2022 5260-5-020 / 0 / [id number] Screw Ostelock 3.[address] SCREW Right: Hip Donal Cancellous 20mm Micanopy Ref#[id number] Implanted: Qty: 1 on 09/18/2017 by Sebastian Bunn MD at [facility] 06/01/2022 5260-5-016 / 0 / [id number] Screw Osteolock 3.[address] SCREW Right: Hip Donal Cancellous 18mm Micanopy Ref#[id number] Implanted: Qty: 1 on 09/18/2017 by Sebastian Bunn MD at [facility] 01/02/2022 [id number] / 0 / [id number] Shell, Micanopy Tritanium Revision Shell Right: Hip Donal Acetabular #[id number] - S0 Implanted: Qty: 1 on 09/18/2017 by Sebastian Bunn MD at [facility] Procedures Comments Procedure Name Priority Date/Time Associated Diag nosis EXTERNAL PROVIDER RECORDS Routine 06/20/2019 12:01 AM CONFERENCE ORGANIZER FLU VACC (0336-9333), 6+ Routine 06/19/2019 Influ tin vaccine needed MONTHS, IM, QUAD 11:21 AM CONFERENCE ORGANIZER CONSENT/REFUSAL FOR Routine 06/18/2019 DIAGNOSIS AND TREATMENT 8:10 AM CONFERENCE ORGANIZER ASSIGNMENT OF BENEFITS Routine 06/18/2019 8:09 AM CONFERENCE ORGANIZER PATIENT QUESTIONNAIRE Routine 06/04/2019 12:01 AM CONFERENCE ORGANIZER MR CERVICAL SPINE WO Routine 05/23/2019 Cervical radiculopathy CONTRAST 2:36 PM CONFERENCE ORGANIZER XR ABDOMEN ACUTE SERIES STAT 04/17/2019 Epigas tric pain 2:33 PM CDT CBC WITH DIFFERENTIAL STAT 04/17/2019 Epigastr ic pain 2:03 PM CDT TROPONIN I STAT 04/17/2019 Epigastric pain 2:03 PM CDT LIPASE STAT 04/17/2019 Epigastric pain 2:03 PM CDT HEPATIC FUNCTION PANEL STAT 04/17/2019 Epigast eunice pain (10826) (ALB,T.PRO,BILI 2:03 PM CDT T,BU/BC,ALT,AST,ALK PHOS) BASIC [...] * EXTERNAL PROVIDER RECORDS (06/20/2019 12:01 AM CONFERENCE ORGANIZER) Only the most recent of 2 results within the time period is included. Specimen Performing Organization Address [facility] one Number HIM * CONSENT/REFUSAL FOR DIAGNOSIS AND TREATMENT (06/18/2019 8:10 AM CONFERENCE ORGANIZER) Specimen Performing Organization Address [facility] one Number HIM * ASSIGNMENT OF BENEFITS (06/18/2019 8:09 AM CONFERENCE ORGANIZER) Specimen Performing Organization Address [facility] one Number HIM * PATIENT QUESTIONNAIRE (06/04/2019 12:01 AM CONFERENCE ORGANIZER) Specimen Performing Organization Address [facility] one Number HIM * MR CERVICAL SPINE WO CONTRAST (05/23/2019 2:36 PM CONFERENCE ORGANIZER) Specimen Impressions Performed At Impression: PACS/VR/DOSE Multilevel [...] Results Inft User - 05/23/2019 8:53 PM CONFERENCE ORGANIZER Exam: MR CERVICAL SPINE WO CONTRAST Clinical [...] bony abnormalities are noted. Scattered pelvic phleboliths. Mastic are seen in the left neck regio [...] bony abnormalities are noted. Scattered pelvic phleboliths. Mastic are seen in the left neck region, [...] 9.29 4.30 - 11.10 [facility] RBC 4.10 3.93 - 5.25 10*6/L [facility] HGB 13.9 11.6 - 15.0 g/dL [facility] HCT 41.3 35.7 - 45.2 % [facility] MCV 100.7 (H) 80.6 - 95.5 fL [facility] MCH 33.9 (H) 25.9 - 32.8 pg [facility] MCHC 33.7 31.6 - 35.1 g/dL [facility] RY [facility] RDW-SD 49.2 39.0 - 49.9 fL [facility] RDW-CV 13.3 12.0 - 15.5 % [facility] PLT 318 166 - 358 10*3/L [facility] MPV 10.1 9.5 - 12.9 fL [facility] NRBC/100 WBC 0.0 0.0 - 10.0 /100 WBCs [facility] NRBC x10^3 <0.01 10*3/L [facility] GRAN MAT (NEUT) 58.5 % [facility] Y % [facility] IMM GRAN % 0.20 % [facility] LYMPH % 32.3 % [facility] MONO % 7.4 % [facility] EOS % 1.4 % [facility] BASO % 0.2 % [facility] GRAN MAT 5.43 1.88 - 7.09 10*3/uL [facility] x10^3(ANC) [facility] IMM GRAN x10^3 <0.03 0.00 - 0.06 10*3/uL [facility] LYMPH x10^3 3.00 1.32 - 3.29 10*3/uL [facility] MONO x10^3 0.69 0.33 - 0.92 10*3/uL [facility] EOS x10^3 0.13 0.03 - 0.39 10*3/uL [facility] BASO x10^3 <0.03 0.01 - 0.07 10*3/uL [facility] Specimen Blood - ARM, LEFT Performing Organization Address City/[facility] Ph one Number [facility] CLIA: [id number], [address] [place], [place] [address] [facility] * Basic Metabolic Panel (NA, K, CL, CO2, GLUCOSE, BUN, CREATININE, CA) (04/17/2019 2:03 PM CDT) NA 137 135 - 145 mmol/L [facility] RY [facility] K 4.1 3.5 - 5.0 mmol/L [facility] RY [facility] CL 104 98 - 108 mmol/L [facility] Y [facility] CO2 TOTAL 24 23 - 31 mmol/L [facility] AGAP 9 2 - 16 [facility] BUN 12 7 - 23 mg/dL [facility] GLUCOSE 92 70 - 110 mg/dL [facility] CREATININE 0.61 0.50 - 1.04 mg/dL [facility] ORY [facility] CALCIUM 9.5 8.6 - 10.6 mg/dL [facility] RY [facility] eGFR 102.2 mL/min/1.73m2 [facility] Calculation [facility] (Non-[facility]) eGFR 123.9 mL/min/1.73m2 [facility] Specimen Blood - ARM, LEFT Narrative Performed At Association of Glomerular Filtration Rate (GFR) and S taging of Kidney Disease* [facility] + + +------ + [facility] | GFR (mL/min/1.73 m2) | With Kidney Damage | [facility] Kidney Damage [place] + + -------+ + | >90 | [...] abnormalities in imaging tests). Performing Organization Address City/State/[facility] Ph one Number [facility] CLIA: [id number], [address] [place], [place] [address] [facility] * Hepatic Function Panel (ALB, T.PRO, BILI T, BU/BC, ALT, AST, ALK PHOS) (04/17/2019 2:03 PM CDT) TOTAL BILI 0.3 0.1 - 1.1 mg/dL [facility] LABORATOR [facility] BILI UNCON 0.0 (L) 0.1 - 1.1 mg/dL [facility] BILI CONJ 0.0 0.0 - 0.3 mg/dL [facility] T PROTEIN 7.5 6.3 - 8.2 g/dL [facility] ALBUMIN 4.2 3.5 - 5.0 g/dL [facility] ALK PHOS 93 34 - 122 U/L [facility] ALT(SGPT) 12 9 - 51 U/L [facility] AST(SGOT) 16 13 - 40 U/L [facility] Specimen Blood - ARM, LEFT Performing Organization Address City/[facility] Ph one Number [facility] CLIA: [id number], [address] [place], [place] [address] [facility] * Troponin I (04/17/2019 2:03 PM CDT) TROPONIN I 0.001 <=0.034 ng/mL [facility] Specimen Blood - ARM, LEFT Narrative Performed At Equal or Less than 0.034 ng/ml---Normal [facility] LABO RATORY Note: Cardiac troponin begins to rise 3-4 hours after the onset of ischemia. [facility] Repeat in 4-6 hours if the sample was d rawn within 3-4 hours of the onset of the [place] symptom and found normal. Between 0.035 and [...] patient's use of biotin. Performing Organization Address City/[facility] Ph one Number [facility] CLIA: [id number], [address] [place], [place] [address] [facility] * Lipase Serum (04/17/2019 2:03 PM CDT) LIPASE 86 0 - 220 U/L [facility] Specimen Blood - ARM, LEFT Performing Organization Address City/[facility] Ph one Number [facility] CLIA: [id number], [address] [place], [place] [address] [facility] * EKG-12 LEAD (04/17/2019 1:48 PM CDT) Specimen Performing Organization Address City/State/Zipcode Ph one Number [facility] * EMERGENCY SERVICES AGREEMENTS AND AUTHORIZATIONS (04/17/2019 12:01 AM CDT) Specimen Performing Organization Address City/State/Zipcode Ph one Number HIM from Last 3 Months Insurance Type Payer Benefit Subscriber ID Effective Phone Address Plan / Dates Group Medicare Adv HMO [facility] [id number] 2018- MANAGED MEDICARE HEALTHCARE Present DUAL COMPLETE HMO [facility] [employer] [id number] 2018- [address] H Present [address] [place] [address] Medicaid [id number] MEDICAID xxxxxxxxx 2019-P [phone] [id number] [place] [address] amily (Home) [place] [address] [facility] 1965 [address] [address] Health (Home) [place] [address] Advance Directives Patient Supervisor Photoengraving Explanation Type Date Recorded 0 Advance Directives 08/08/2013 8:00 AM and Living Will Power of Rn Infusion 08/08/2013 8:00 AM
--- OUTSIDE RECORDS SUMMARY | 2019-12-13 15:32 | XMS REPORT | Summary of Care ---
Author Author [facility] - Health Organization [facility] - Health Address Unknown Phone Unavailable Care Team Providers Care Regional Rehabilitation Director Name Role Phone Ovidio Clarke MD PCP Reason for Visit * Reason Comments Orders updated infusion order need ed for Remicade Encounter Details Care Team Description Date Type Department Omar Clay, DO [address] [place], [place] [id number] Orders (updated infusion order needed fo r Remicade) 08/14/2019 Telephone [facility] Health Interna l Medicine [facility]ology[facility] [address] [place] [address] Allergies Comments Active Allergy Reactions Severity Noted Date Aspirin Hives 03/21/2012 Sulfa (Sulfonamide Hives 11/29/2005 Antibiotics) documented as of this encounter (statuses as of 08/14/2019) Medications End Date Status Medication Sig Dispensed [...] Active ondansetron 4 mg DISSOLVE ONE 0 06/11/201 disintegrating tablet TAB IN MOUTH 9 EVERY [...] Patellofemoral instability of right knee with pain documented as of this encounter (statuses as of 08/14/2019) Active Problems Problem Noted Date Essential hypertension 03/19/2019 Carpal tunnel syndrome on right 03/19/2019 Overview: EMG 02/18/2019 Special screening for malignant neoplasms, colon Overview: Added automatically from request for [employer] [id number] Cervical spondylosis with radiculopathy 01/01/2019 Overview: Added automatically from request for [employer] [id number] Mixed hyperlipidemia 08/13/2018 Overview: LDL 140 07/17/2018 Left tennis elbow 06/17/2018 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 Overview: R Avulsion fracture of lateral epicondyle of humerus 0 11/14/2017 Painful patella, unspecified laterality 11/05/2017 S/P revision of total hip 09/18/2017 Colon cancer screening 05/24/2017 Overview: Added automatically from request for [employer] [id number] Hematemesis with nausea 05/24/2017 Overview: Added automatically from request for [employer] [id number] Nausea and vomiting, intractability of vomiting not s pecified, unspecified 05/24/2017 vomiting type Overview: Added automatically from request for jimmy [employer] [id number] ANJELICA (obstructive sleep apnea) 05/10/2017 Obesity (BMI 30-39.9) 05/01/2017 Microhematuria 02/14/2017 Complex tear of medial meniscus of right knee as curr ent injury, initial 01/18/2017 encounter Overview: Added automatically from request for [employer] [id number] Elevated MCV 07/25/2016 Overview: 103.4 07/22/2016 Muscle [...] opacitiy on chest xray at [facility] 05/22/2015 Hiatus hernia syndrome 04/09/2015 Overview: [...] lower leg 11/25/2013 Overview: ICD10 Diagnosis Term Safety Associate Utility Knee crepitus 11/25/2013 Genu valgum, acquired 11/25/2013 Overview: ICD10 Diagnosis Term Safety Associate Utility Patellofemoral misalignment with pain 11/25/2013 Primary [...] 11/16/2010 Headache 04/08/2010 Overview: ICD10 Diagnosis Term Safety Associate Utility Nonerosive nonspecific gastritis 04/08/2010 Overview: EGD Dr. Lloyd Glossitis 02/23/2010 Tobacco use disorder 02/23/2010 Menorrhagia 05/19/2009 Vision blurred 05/19/2009 Acute upper respiratory infection 08/14/2008 Overview: ICD10 Diagnosis Term Safety Associate Utility Acute pharyngitis 08/14/2008 Screening for malignant neoplasm of cervix 9 Overview: ICD10 Diagnosis Term Safety Associate Utility Breast screening 07/16/2008 Overview: ICD10 Diagnosis Term Safety Associate Utility Urinary tract infection, site not specified 04/29/20 08 Backache 06/02/2007 Overview: Lower back pain ICD10 Diagnosis Term [employer] Pain in joint 06/02/2007 Overview: ICD10 Diagnosis Term Safety [employer] Utility Cervicalgia 06/02/2007 Myalgia and myositis 06/02/2007 Overview: Bilateral trapezius pain ICD10 Diagnosis Term Safety Associate Utility Absence of menstruation 04/25/2007 Anemia 03/25/2007 Overview: ICD10 Diagnosis Term Safety Associate Utility Helicobacter pylori infection 06/11/2006 Overview: ICD10 Diagnosis Term Safety Associate Utility Acute peptic ulcer 06/11/2006 Overview: ICD10 Diagnosis Term Safety Associate Utility Abdominal pain 04/25/2006 Overview: ICD10 Diagnosis Term Safety Associate Utility Ankylosing spondylitis 04/25/2006 Vaginitis and vulvovaginitis 04/25/2006 Overview: ICD10 Diagnosis Term Safety Associate Utility Other, mixed, or unspecified nondependent drug abuse, continuous 11/30/2005 documented as of this encounter (statuses as of 08/14/2019) Resolved Problems Problem Noted Date Resolved Date Arm laceration, right, subsequent encounter 04/13/2014 04/13/2014 Syncope and collapse 02/27/2007 06/28/2014 Bipolar I disorder, most recent episode (or current) unspec ified 01/03/2007 01/23/2018 Overview: Dr. 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 11/30/2005 02/11/2018 Overview: ICD10 Diagnosis Term Safety Associate Utility documented as of this encounter (statuses as of 08/14/2019) Immunizations Name Administration Dates Next Due Hepatitis [...] Description Date Type Specialty Omar Clay, DO [address] [place] [address] [phone] 08/19/2019 Office [place] [address] [place] [phone] 09/18/2019 Office Visit Family Medicine JayRadhaKellee Giuliano, TIMBER BUYER [address] [place] [address] [phone] 09/23/2019 Office Visit Orthopedic Surgery Sebastian Doe MD [id number] [place] [address] [phone] 10/28/2019 Office Visit Pain Medicine Health Maintenance [...] Head, Donal Uhr Bipolar BIPOLAR Right: Hip [place] 80d20rq #Uh1-44-28 - S0 head Implanted: Qty: 1 on 09/18/2017 by Sebastian Bunn MD at [facility] 07/07/2021 1023-12 / [id number] / [id number] Cancellous Cubes, Community Tissue BONE Right: Hip [facility] Services Freeze Dried 30 Cc Tissue #1023-12 - [id number] Services Implanted: Qty: 1 on 09/18/2017 by Sebastian Bunn MD at [facility] 03/08/2018 2018-40 / [id number] / [id number] Dbm Putty Maxxeus 10cc Cts #2017- BONE Right: Hip [facility] - [id number] Tissue Implanted: Qty: 1 on 09/18/2017 by Services Sebastian Bunn MD at [facility] 04/07/2022 1365-28-720 / 0 / [id number] Delta Ceramic Femoral Head 28mm +5 Head Right: Hip Depuy /14 Taper Depuy Ref#[id number] Synthes Implanted: Qty: 1 on 09/18/2017 by Sebastian Bunn MD at [facility] 03/29/2022 623-00-44F / 0 / [id number] Insert, [place] Trident 0deg 44mm Liner Right: Hip Donal #623-00-44f Implanted: Qty: 1 on 09/18/2017 by Sebastian Bunn MD at [facility] 04/24/2022 5260-5-050 / 0 / [id number] Screw Osteolock [address] SCREW Right: Hip Donal Cancellous 50mm Donal Ref#[id number] Implanted: Qty: 2 on 09/18/2017 by Sebastian Bunn MD at [facility] 06/01/2022 5260-5-020 / 0 / [id number] Screw Ostelock 3.[address] SCREW Right: Hip [place] Cancellous 20mm Donal Ref#5260-5-020 Implanted: Qty: 1 on 09/18/2017 by Sebastian Bunn MD at [facility] 06/01/2022 5260-5-016 / 0 / [id number] Screw Osteolock 3.[address] SCREW Right: Hip Donal Cancellous 18mm Donal Ref#5260-5-016 Implanted: Qty: 1 on 09/18/2017 by Sebastian Bunn MD at [facility] 01/02/2022 509-02-60F / 0 / [id number] Shell, [place] Tritanium Revision Shell Right: Hip Donal Acetabular #509-02-60f - S0 Implanted: Qty: 1 on 09/18/2017 by Sebastian Bunn MD at [facility] documented as of this encounter Results Not on filedocumented in this encounter Insurance Type Payer Benefit Subscriber ID Effective Phone Address Plan / Dates Group Medicare Adv O [facility] [id number] 2018- MANAGED MEDICARE HEALTHCARE Present DUAL COMPLETE HMO [facility] [employer] [id number] 2018- P O BOX SOLUTIONS H Present [address] [place] [address] Medicaid [facility] MEDICAID xxxxxxxxx 2019-P [phone] P [address] BOX OF [facility] [address] [place] [address] documented as of this encounter Advance Directives Patient Sweatband Shaper Explanation Type Date Recorded 0 Advance Directives 08/08/2013 8:00 AM and Living Will Power of Munitions Handler Supervisor 08/08/2013 8:00 AM
--- OUTSIDE RECORDS SUMMARY | 2019-12-13 15:32 | XMS REPORT | Summary of Care ---
Author Author [facility] - Health Organization [facility] - Health Address Unknown Phone Unavailable Care Team Providers Care Business Improvement Manager Name Role Phone Ovidio Clarke MD PCP Reason for Visit * Reason Comments Refill Request Encounter Details Care Team Description Date Type Department Omar Clay, DO [address] [place], [place] [address] Refill Request 08/12/2019 Refill [facility] [address], [address] [place] [address] Allergies Comments Active Allergy Reactions Severity Noted Date Aspirin Hives 03/21/2012 Sulfa (Sulfonamide Hives 11/29/2005 Antibiotics) documented as of this encounter (statuses as of 08/18/2019) Medications End Date Status Medication Sig Dispensed [...] weekly Postmenopausal bone loss for 8 doses. 08/14/2019 Discontinued (Reorder) zolpidem (AMBIEN) 10 mg Take 1 tablet 30 tablet 5 tabletIndications: by mouth at 9 Insomnia, unspecified bedtime as type needed for Insomnia. 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 Overview: R Avulsion fracture of lateral epicondyle of humerus 0 11/14/2017 Painful patella, unspecified laterality 11/05/2017 S/P revision of total hip 09/18/2017 Colon cancer screening 05/24/2017 Overview: Added automatically from request for [employer] [id number] Hematemesis with nausea 05/24/2017 Overview: Added automatically from request for [employer] [id number] Nausea and vomiting, intractability of vomiting not s pecified, unspecified 05/24/2017 vomiting type Overview: Added automatically from request for [employer] [id number] ANJELICA (obstructive sleep apnea) 05/10/2017 Obesity (BMI 30-39.9) 05/01/2017 Microhematuria 02/14/2017 Complex tear of medial meniscus of right knee as curr ent injury, initial 01/18/2017 encounter Overview: Added automatically from request for [employer] [id number] Elevated MCV 07/25/2016 Overview: 103.4 07/22/2016 Muscle [...] nodular opacitiy on chest xray at [facility] 05/22/2015 Hiatus hernia syndrome 04/09/2015 Overview: [...] lower leg 11/25/2013 Overview: ICD10 Diagnosis Term Quick Mixer 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 Knee crepitus 11/25/2013 Genu valgum, acquired 11/25/2013 Overview: ICD10 Diagnosis Term Quick Mixer 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 Patellofemoral misalignment with pain 11/25/2013 [...] 11/16/2010 Headache 04/08/2010 Overview: ICD10 Diagnosis Term Quick Mixer 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 Lloyd Glossitis 02/23/2010 Tobacco use disorder 02/23/2010 Menorrhagia 05/19/2009 Vision blurred 05/19/2009 Acute upper respiratory infection 08/14/2008 Overview: ICD10 Diagnosis Term Quick Mixer 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 Acute pharyngitis 08/14/2008 Screening for malignant neoplasm of cervix 9 Overview: ICD10 Diagnosis Term Quick Mixer 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 Breast screening 07/16/2008 Overview: ICD10 Diagnosis Term Quick Mixer 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 Urinary tract infection, site not specified 04/29/20 08 Backache 06/02/2007 Overview: Lower back pain ICD10 Diagnosis Term Quick Mixer 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 Pain in joint 06/02/2007 Overview: ICD10 Diagnosis Term Quick Mixer 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 Cervicalgia 06/02/2007 Myalgia and myositis 06/02/2007 Overview: Bilateral trapezius pain ICD10 Diagnosis Term Quick Mixer 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 Absence of menstruation 04/25/2007 Anemia 03/25/2007 Overview: ICD10 Diagnosis Term Quick Mixer 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 Helicobacter pylori infection 06/11/2006 Overview: ICD10 Diagnosis Term Quick Mixer 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 Acute peptic ulcer 06/11/2006 Overview: ICD10 Diagnosis Term Quick Mixer 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 Abdominal pain 04/25/2006 Overview: ICD10 Diagnosis Term Quick Mixer 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 Ankylosing spondylitis 04/25/2006 Vaginitis and vulvovaginitis 04/25/2006 Overview: ICD10 Diagnosis Term Quick Mixer 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 Other, mixed, or unspecified nondependent drug abuse, continuous 11/30/2005 documented as of this encounter (statuses as of 08/18/2019) Resolved Problems Problem Noted Date Resolved Date Arm laceration, right, subsequent encounter 04/13/2014 04/13/2014 Syncope and collapse 02/27/2007 06/28/2014 Bipolar I disorder, most recent episode (or current) unspec ified 01/03/2007 01/23/2018 Overview: Dr. 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 11/30/2005 02/11/2018 Overview: ICD10 Diagnosis Term Quick Mixer 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 documented as of this encounter (statuses as of 08/18/2019) Immunizations Name Administration Dates Next Due Hepatitis [...] Description Date Type Specialty Omar Clay DO [address] [place] [address] [phone] 08/19/2019 Office Visit Rheumatology Day Ndiaye MD [address] [place] [phone] 09/01/2019 Office [place] [address] [place] [phone] 09/18/2019 Office Visit Family Medicine JayRadhaGiuliano Goodson, FINANCE BUSINESS MANAGER [address] [place] [address] [phone] 09/23/2019 Office Visit Orthopedic Surgery Sebastian Doe MD [address] [place] [address] [phone] 10/28/2019 Office Visit Pain Medicine Health Maintenance [...] UH1-44-28 / 0 / [id number] Bipolar Head, [place] Uhr Bipolar BIPOLAR Right: Hip Donal 15j59pm #Uh1-44-28 - S0 head Implanted: Qty: 1 on 09/18/2017 by Sebastian Bunn MD at [facility] 07/07/2021 1023-12 / [id number] / [id number] Cancellous Cubes, [facility] Tissue BONE Right: Hip [facility] Services Freeze Dried 30 Cc Tissue #1023-12 - [id number] Services Implanted: Qty: 1 on 09/18/2017 by Sebastian Bunn MD at [facility] 03/08/2018 2018-40 / [id number] / [id number] Dbm Putty Maxxeus 10cc Cts #2018-40 BONE Right: Hip [facility] - [id number] Tissue Implanted: Qty: 1 on 09/18/2017 by Services Sebastian Bunn MD at [facility] 04/07/2022 1365-28-720 / 0 / [id number] Delta Ceramic Femoral Head 28mm +5 Head Right: Hip Depuy 06/21 Taper Depuy Ref#[id number] Synthes Implanted: Qty: 1 on 09/18/2017 by Sebastian Bunn MD at [facility] 03/29/2022 623-00-44F / 0 / [id number] Insert, [place] Trident 0deg 44mm Liner Right: Hip [place] #623-00-44f Implanted: Qty: 1 on 09/18/2017 by Sebastian Bunn MD at [facility] 04/24/2022 5260-5-050 / 0 / [id number] Screw Osteolock 3.[address] SCREW Right: Hip Donal Cancellous 50mm [place] Ref#5260-5-050 Implanted: Qty: 2 on 09/18/2017 by Sebastian Bunn MD at [facility] 06/01/2022 5260-5-020 / 0 / [id number] Screw Ostelock 3.[address] SCREW Right: Hip [place] Cancellous 20mm Donal Ref#5260-5-020 Implanted: Qty: 1 on 09/18/2017 by Sebastian Bunn MD at [facility] 06/01/2022 5260-5-016 / 0 / [id number] Screw Osteolock 3.[address] SCREW Right: Hip Donal Cancellous 18mm [place] Ref#5260-5-016 Implanted: Qty: 1 on 09/18/2017 by Sebastian Bunn MD at [facility] 01/02/2022 509-02-60F / 0 / [id number] Shell, Donal Tritanium Revision Shell Right: Hip [place] Acetabular #509-02-60f - S0 Implanted: Qty: 1 on 09/18/2017 by Sebastian Bunn MD at [facility] documented as of this encounter Results Not on filedocumented in this encounter Visit Diagnoses Diagnosis Ankylosing spondylitis of multiple site s in spine Ankylosing spondylitis documented in this encounter Insurance Type Payer Benefit Subscriber ID Effective Phone Address Plan / Dates Group Medicare Adv O [facility] [id number] 2018- MANAGED MEDICARE HEALTHCARE Present DUAL COMPLETE HMO [facility] [employer] [id number] 2018- P O BOX SOLUTIONS H Present [address] [place] [address] Medicaid [facility] MEDICAID xxxxxxxxx 2019-P [phone] P [address] BOX OF [facility] [address] [place] [address] documented as of this encounter Advance Directives Patient Senior Technical Manager Explanation Type Date Recorded 0 Advance Directives 08/08/2013 8:00 AM and Living Will Power of Senior Copywriter 08/08/2013 8:00 AM
--- OUTSIDE RECORDS SUMMARY | 2019-12-13 15:32 | XMS REPORT | Summary of Care ---
Author Author [facility] - Health Organization [facility] - Health Address Unknown Phone Unavailable Care Team Providers Care Cement Gun Operator Name Role Phone Ovidio Clarke MD PCP Reason for Visit * Reason Comments Refill Request Encounter Details Care Team Description Date [place] [address] [place] [address] Refill Request 08/13/2019 Refill [facility] [address] [place] [phone] Allergies Comments Active Allergy Reactions Severity Noted Date Aspirin Hives 03/21/2012 Sulfa (Sulfonamide Hives 11/29/2005 Antibiotics) documented as of this encounter (statuses as of 08/13/2019) Medications End Date Status Medication Sig Dispensed [...] Patellofemoral instability of right knee with pain 08/13/2019 Discontinued (Reorder) Diclofenac Sodium 1 % Apply 2 g to 100 g 0 gelIndications: Painful neck qid 9 patella, unspecified laterality, Primary localized osteoarthrosis, lower leg, unspecified laterality, Muscle weakness of lower extremity, Effusion of lower leg joint, Knee crepitus, unspecified laterality, Patellofemoral instability of right knee with pain documented as of this encounter (statuses as of 08/13/2019) Active Problems Problem Noted Date Essential hypertension 03/19/2019 Carpal tunnel syndrome on right 03/19/2019 Overview: EMG 02/18/2019 Special screening for malignant neoplasms, colon Overview: Added automatically from request for jimmy solorio [id number] Cervical spondylosis with radiculopathy 01/01/2019 Overview: Added automatically from request for jimmy solorio [id number] Mixed hyperlipidemia 08/13/2018 Overview: LDL 140 07/17/2018 Left tennis elbow 06/17/2018 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 Overview: R Avulsion fracture of lateral epicondyle of humerus 0 11/14/2017 Painful patella, unspecified laterality 11/05/2017 S/P revision of total hip 09/18/2017 Colon cancer screening 05/24/2017 Overview: Added automatically from request for jimmy solorio [id number] Hematemesis with nausea 05/24/2017 Overview: Added automatically from request for jimmy solorio [id number] Nausea and vomiting, intractability of vomiting not s pecified, unspecified 05/24/2017 vomiting type Overview: Added automatically from request for jimmy solorio [id number] ANJELICA (obstructive sleep apnea) 05/10/2017 Obesity (BMI 30-39.9) 05/01/2017 Microhematuria 02/14/2017 Complex tear of medial meniscus of right knee as curr ent injury, initial 01/18/2017 encounter Overview: Added automatically from request for jimmy solorio [id number] Elevated MCV 07/25/2016 Overview: 103.4 07/22/2016 Muscle [...] lobe nodular opacitiy on chest xray at [facility] 05/22/2015 Hiatus hernia syndrome 04/09/2015 [...] lower leg 11/25/2013 Overview: ICD10 Diagnosis Term [employer] Knee crepitus 11/25/2013 Genu valgum, acquired 11/25/2013 Overview: ICD10 Diagnosis Term [employer] Patellofemoral misalignment with pain 11/25/2013 Primary [...] 11/16/2010 Headache 04/08/2010 Overview: ICD10 Diagnosis Term [employer] Nonerosive nonspecific gastritis 04/08/2010 Overview: EGD Dr. Lloyd Glossitis 02/23/2010 Tobacco use disorder 02/23/2010 Menorrhagia 05/19/2009 Vision blurred 05/19/2009 Acute upper respiratory infection 08/14/2008 Overview: ICD10 Diagnosis Term [employer] Acute pharyngitis 08/14/2008 Screening for malignant neoplasm of cervix 9 Overview: ICD10 Diagnosis Term [employer] Breast screening 07/16/2008 Overview: ICD10 Diagnosis Term [employer] Urinary tract infection, site not specified 04/29/20 08 Backache 06/02/2007 Overview: Lower back pain ICD10 Diagnosis Term [employer] Pain in joint 06/02/2007 Overview: ICD10 Diagnosis Term [employer] Cervicalgia 06/02/2007 Myalgia and myositis 06/02/2007 Overview: Bilateral trapezius pain ICD10 Diagnosis Term [employer] Absence of menstruation 04/25/2007 Anemia 03/25/2007 Overview: ICD10 Diagnosis Term [employer] Helicobacter pylori infection 06/11/2006 Overview: ICD10 Diagnosis Term [employer] Acute peptic ulcer 06/11/2006 Overview: ICD10 Diagnosis Term [employer] Abdominal pain 04/25/2006 Overview: ICD10 Diagnosis Term [employer] Ankylosing spondylitis 04/25/2006 Vaginitis and vulvovaginitis 04/25/2006 Overview: ICD10 Diagnosis Term [employer] Other, mixed, or unspecified nondependent drug abuse, continuous 11/30/2005 documented as of this encounter (statuses as of 08/13/2019) Resolved Problems Problem Noted Date Resolved Date Arm laceration, right, subsequent encounter 04/13/2014 04/13/2014 Syncope and collapse 02/27/2007 06/28/2014 Bipolar I disorder, most recent episode (or current) unspec ified 01/03/2007 01/23/2018 Overview: Dr. 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 11/30/2005 02/11/2018 Overview: ICD10 Diagnosis Term [employer] documented as of this encounter (statuses as of 08/13/2019) Immunizations Name Administration Dates Next Due Hepatitis [...] Treatment Care Team Description Date Type Specialty 3, Jennifer Adult Infusion Nurse 08/15/2019 Nurse Visit Infusion Therapy Omar Clay, DO [address] [place] [address] [phone] 08/19/2019 Office [place] [address] [place] [phone] 09/18/2019 Office Visit Family Medicine Giuliano Gardner, NEUROPHYSIOLOGY TECH [address] [place] [address] [phone] 09/23/2019 Office Visit Orthopedic Surgery Sebastian Doe MD [id number] [place], [place] [address] 10/28/2019 Office Visit Pain Medicine Health Maintenance [...] Donal Uhr Bipolar BIPOLAR Right: Hip Donal [id number] #[id number] - S0 head Implanted: Qty: 1 on 09/18/2017 by Sebastian Bunn MD at [facility] 07/07/2021 1023-12 / [id number] / [id number] Cancellous Cubes, Formerly [facility] Tissue BONE Right: Hip Formerly [facility] Services Freeze Dried 30 Cc Tissue #1023-12 - [id number] Services Implanted: Qty: 1 on 09/18/2017 by Sebastian Bunn MD at [facility] 03/08/2018 2018-40 / [id number] / [id number] Dbm Putty Maxxeus 10cc Cts #2018-40 BONE Right: Hip Formerly [facility] - [id number] Tissue Implanted: Qty: 1 on 09/18/2017 by Services Sebastian Bunn MD at [facility] 04/07/2022 1365-28-720 / 0 / [id number] Delta Ceramic Femoral Head 28mm +5 Head Right: Hip Depuy 06/21 Taper Depuy Ref#[id number] Synthes Implanted: Qty: 1 on 09/18/2017 by Sebastian Bunn MD at [facility] 03/29/2022 623-00-44F / 0 / [id number] Insert, Donal Trident 0deg 44mm Liner Right: Hip Donal #[id number] Implanted: Qty: 1 on 09/18/2017 by Sebastian Bunn MD at [facility] 04/24/2022 5260-5-050 / 0 / [id number] Screw Osteolock 3.[address] SCREW Right: Hip [place] Cancellous 50mm Donal Ref#[id number] Implanted: Qty: 2 on 09/18/2017 by Sebastian Bunn MD at [facility] 06/01/2022 5260-5-020 / 0 / [id number] Screw Ostelock 3.[address] SCREW Right: Hip Donal Cancellous 20mm [place] Ref#[id number] Implanted: Qty: 1 on 09/18/2017 by Sebastian Bunn MD at [facility] 06/01/2022 5260-5-016 / 0 / [id number] Screw Osteolock 3.[address] SCREW Right: Hip Donal Cancellous 18mm [place] Ref#[id number] Implanted: Qty: 1 on 09/18/2017 by Sebastian Bunn MD at [facility] 01/02/2022 [id number] / 0 / [id number] Shell, [place] Tritanium Revision Shell Right: Hip [place] Acetabular #[id number] - S0 Implanted: Qty: 1 on 09/18/2017 by Sebastian Bunn MD at [facility] documented as of this encounter Results Not [...] Plan / Dates Group Medicare Adv O [facility] [id number] 2018- MANAGED MEDICARE HEALTHCARE Present DUAL COMPLETE HMO [facility] [id number] 2018- [address]OX SOL[employer] H Present [address] [place] [address] Medicaid [facility] MEDICAID xxxxxxxxx 2019-P [phone] [address] [place] [id number] [phone] documented as of this encounter Advance Directives Patient Sourcer Explanation Type Date Recorded 0 Advance Directives 08/08/2013 8:00 AM and Living Will Power of Jewelry Maker 08/08/2013 8:00 AM
--- OUTSIDE RECORDS SUMMARY | 2019-12-13 15:32 | XMS REPORT | Summary of Care ---
Author Author [facility] - Health Organization [facility] - Health Address Unknown Phone Unavailable Care Team Providers Care Felt Finishing Supervisor Name Role Phone Ovidio Clarke MD PCP Reason for Referral * (Routine) Referred By Contact Referred To Contact Status Reason Specialty Diagnoses / Procedures Omar Clay, DO [address] [place] [address] New Request Otolaryngology Diagnoses Ankylosing spondylitis of multiple sites in spine P rocedures CONSULT/REFERRAL ENT Reason for Visit * Reason Comments Follow-up Encounter Details Care Team Description Date Type Department Omar Clay, DO [address] [place] [address] Ankylosing spondylitis of multiple sites in spine (Primary Dx); Mycobacterium avium infection; Therapeutic drug monitoring; Anterior uveitis; Schizoaffective disorder, bipolar type 08/19/2019 Office Visit [facility] [address], [address] [place] [address] Allergies Comments Active Allergy Reactions Severity Noted Date Aspirin Hives 03/21/2012 Sulfa (Sulfonamide Hives 11/29/2005 Antibiotics) documented as of this encounter (statuses as of 08/19/2019) Medications End Date Status Medication Sig Dispensed Refills Start Date Active azithromycin 250 mg Take 250 mg 0 tablet by mouth. 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 Overview: R Avulsion fracture of lateral epicondyle of humerus 0 11/14/2017 Painful patella, unspecified laterality 11/05/2017 S/P revision of total hip 09/18/2017 Colon cancer screening 05/24/2017 Overview: Added automatically from request for jimmy solorio [id number] Hematemesis with nausea 05/24/2017 Overview: Added automatically from request for jimmy solorio [id number] Nausea and vomiting, intractability of vomiting not s pecified, unspecified 05/24/2017 vomiting type Overview: Added automatically from request for jimmy solorio [id number] ANJELICA (obstructive sleep apnea) 05/10/2017 Obesity (BMI 30-39.9) 05/01/2017 Microhematuria 02/14/2017 Complex tear of medial meniscus of right knee as curr ent injury, initial 01/18/2017 encounter Overview: Added automatically from request for jimmy solorio [id number] Elevated MCV 07/25/2016 Overview: 103.4 07/22/2016 Muscle [...] opacitiy on chest xray at [facility] 05/22/2015 Hiatus hernia syndrome 04/09/2015 Overview: [...] lower leg 11/25/2013 Overview: ICD10 Diagnosis Term Hollow Handle Knife Assembler Utility Knee crepitus 11/25/2013 Genu valgum, acquired 11/25/2013 Overview: ICD10 Diagnosis Term Hollow Handle Knife Assembler Utility Patellofemoral misalignment with pain 11/25/2013 [...] 11/16/2010 Headache 04/08/2010 Overview: ICD10 Diagnosis Term Hollow Handle Knife Assembler Utility Nonerosive nonspecific gastritis 04/08/2010 Overview: EGD Dr. Lloyd Glossitis 02/23/2010 Tobacco use disorder 02/23/2010 Menorrhagia 05/19/2009 Vision blurred 05/19/2009 Acute upper respiratory infection 08/14/2008 Overview: ICD10 Diagnosis Term Hollow Handle Knife Assembler Utility Acute pharyngitis 08/14/2008 Screening for malignant neoplasm of cervix Overview: ICD10 Diagnosis Term Hollow Handle Knife Assembler Utility Breast screening 07/16/2008 Overview: ICD10 Diagnosis Term Hollow Handle Knife Assembler Utility Urinary tract infection, site not specified 04/29/20 08 Backache 06/02/2007 Overview: Lower back pain ICD10 Diagnosis Term Hollow Handle Knife Assembler Utility Pain in joint 06/02/2007 Overview: ICD10 Diagnosis Term Hollow Handle Knife Assembler Utility Cervicalgia 06/02/2007 Myalgia and myositis 06/02/2007 Overview: Bilateral trapezius pain ICD10 Diagnosis Term Hollow Handle Knife Assembler Utility Absence of menstruation 04/25/2007 Anemia 03/25/2007 Overview: ICD10 Diagnosis Term Hollow Handle Knife Assembler Utility Helicobacter pylori infection 06/11/2006 Overview: ICD10 Diagnosis Term Hollow Handle Knife Assembler Utility Acute peptic ulcer 06/11/2006 Overview: ICD10 Diagnosis Term Hollow Handle Knife Assembler Utility Abdominal pain 04/25/2006 Overview: ICD10 Diagnosis Term Hollow Handle Knife Assembler Utility Ankylosing spondylitis 04/25/2006 Vaginitis and vulvovaginitis 04/25/2006 Overview: ICD10 Diagnosis Term Hollow Handle Knife Assembler Utility Other, mixed, or unspecified nondependent [...] eatures 11/30/2005 02/11/2018 Overview: ICD10 Diagnosis Term Hollow Handle Knife Assembler Utility documented as of this encounter [...] Signs Reading Time Taken Comments Vital Sign 116/70 08/19/2019 2:00 PM 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 MACHINE OPERATOR Blood Pressure 98 08/19/2019 2:00 PM DISHWASHING MACHINE OPERATOR Pulse 36.7 C (98 F) 08/19/2019 2:00 PM DISHWASHING MACHINE OPERATOR Temperature 16 08/19/2019 2:00 PM DISHWASHING MACHINE OPERATOR Respiratory Rate 98% 08/19/2019 2:00 PM DISHWASHING MACHINE OPERATOR Oxygen Saturation - - Inhaled Oxygen Concentration 88.4 kg (194 lb 14.4 oz) 08/19/2019 2:00 PM DISHWASHING MACHINE OPERATOR Weight - - Height 32.43 07/29/2019 1:19 PM DISHWASHING MACHINE OPERATOR Body Mass Index documented in this encounter Progress Notes * Omar Clay, DO - 08/19/2019 2:00 PM DISHWASHING MACHINE OPERATOR f/u of Ankylosing Spondylitis (B27 + / SIJ fusion) complicated by 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 She was On Remicade 5 mg/kg IV every 6 weeks and MTX weekly in the past. Howeve r, she was seen at [facility] for cough and perhaps some hemoptysis. Her CT was not ve ry remarkable. After a period of time, her sputum cultures grew out MAC. She w as contacted by Dr. Hogan and advised to hold MTX and Remicade previously. She felt she has gotten worse off the Remicade and wanted to re-start it. She s tated her back was so stiff she can't get out of bed without it. Initially she d id not take treatment for MAC infection but later she agreed to take it. Upon her insistence and after reviewing the literature, She has been restarted o n Remicade infusions(5mg /kg every 8 weeks)and MTX 3 tabs/week along with daily FA(after she was on 1 month of MAC therapy), after she signed the informed conse nt with her godmother as witness. Her has also been complicated by uveitis. Her schizoaffective disorder has been reasonably controlled of late. She is muc h more cooperative and much less combative. She was taking 3 MAC drugs and she was following with Dr. Hogan. She said s he stopped the MAC drugs because the last test for MAC was negative. I contacte d Dr Hogan and he advised me that the BAL smear and culture on June 2016 was indeed negative, but that he told her that she needed at least 2 years of t herapy regardless, and that in light of the Remicade and the strong probability of relapse in this setting that chronic therapy may be in order. She stated nadege t she is still taking 3 medications as Rx by Dr. Hogan. Saw sleep medicine and had a sleep study and has OSAS. She is going to start CPAP at home soon. T his likely ties into her issue with wearabellat gain. Has not seen derm for NMSC eval uation and also is concerned that her skin is darkening; not clearly in any area s where she has a rash. She stated she was not taking any of the medications Rx for MAC by Dr. Hogan . She does not say he told her to stop the medications. We held her meds. How ever she demanded that her infusions and MTX be re-started. Dr. Han Arranged for ske observed therapy and she has been compliant with MAC th erapy. We r/s MTX/remicade. She saw opthalmology and had iritis. Most likely due to interruption in Remicad e. Saw Dr. aVllejo. Injected eye. She started seeing Dr. Good (ophth outside [facility]) and he recommended increasing Remicade. The dose is up to 7 mg/kg. She wa s encouraged to f/u with him ALEKSANDR because it appears she has stopped her drops ( ran out) and it's not clear if the increased Remicade dose has worked. She'll h ave to let us know ALEKSANDR. She states she has seen him but we haven't seen a repo rt. She has diffuse pain, and is concerned about neuropathy. She also has headaches . No alter signs. She saw Dr. Gordillo and an MRI of the brain was negative, but there was an incidental note of some abnormality around Waldeyer's ring. She wa s supposed to get a referral to ENT for this but that does not have appeared to happen. Seen again incidentally on MRI done by ortho. Will RF again to ENT toda y. She reports all vaccines UTD. When last seen Dr. Good ([facility]), reported iritis to be stable. Needs f/u. Sh e'll set that up. LTFU and didn't get lab last visit, so had to hold MTX and Remicade. She is following with: Samira for MAC Neuro for LUJAN and cramps Ortho - s/p CTR and a component of neck related radiculopathy and seeing PT Pain medicine - pain Urology - renal stone vs UTI GI - hematemesis and rectal bleeding and GERD. On PPI s/p endoscopy Psych - schizoaffective Florentino (outside ophthalmology) for iritis Bone health ROS: General - positive for fatigue and weight gain HEENT - As in HPI. No oral ulcers Cardiovascular - Negative for chest pain and palpitations Respiratory - Postive for remote hemoptysis/cough Gastrointestinal - Positive for remote abdominal pain and hematemesis. No bloat ing, constipation, diarrhea, dysphagia, heartburn, hematochezia, melena, nausea and vomiting Genitourinary - Negative for dysuria and hematuria Skin - Negative for any rash/itching. Neuro - Negative for numbness, seizures, tingling and weakness Hematologic - Negative for blood clots Psych - Negative for anxiety and hallucinations Past Medical History: Diagnosis Date Abdominal pain [...] 02/11/2012 Hiatus hernia syndrome 04/09/2015 [facility] Immun[facility] deficiency 10/09/2014 She is NOT [...] Fountain MD; Location: [facility] CERVICAL EPIDURAL STEROID INJECTION 03/26/2012 Surgeon: Maged Franklin MD PHD; Location: [facility] CERVICAL EPIDURAL STEROID INJECTION N/A 01/23/2019 Surgeon: Sebastian Doe; Location: [facility] COLONOSCOPY N/A 06/22/2015 Surgeon: Arian To MD; Location: [facility] COLONOSCOPY N/A 02/17/2019 Surgeon: Ricco Hannah DO; Location: [facility] EGD (ENDO) 03/23/2015 [facility] ESOPHAGOGASTRODUODENOSCOPY 04/13 ulcers ESOPHAGOGASTRODUODENOSCOPY 06/15 ESOPHAGOGASTRODUODENOSCOPY 10/07/2009 mild nonerosive gastritis ESOPHAGOGASTRODUODENOSCOPY N/A 06/22/2015 Surgeon: Arian To MD; Location: [facility] ESOPHAGOGASTRODUODENOSCOPY N/A 02/17/2019 Surgeon: Ricco Hannah DO; Location: [facility] FLEXIBLE BRONCHOSCOPY 05/24/2015 Magui Hogan [employer] HIP HEMIARTHROPLASTY 2000 Right KNEE ARTHROSCOPY Right 01/06/2014 Surgeon: Girish Fountain MD; Location: [facility] RUTH OPEN CARPAL TUNNEL RELEASE Right 07/15/2019 Surgeon: Zia Resendez MD; Location: [facility] [place] ARTHRS KNE SURG W/MENISCECTOMY MED/LAT W/SHVG 01/06/2014 [place] KNEE SCOPE,REMV LOOSE BODY 01/06/2014 TOTAL HIP ARTHROPLASTY REVISION Right 09/18/2017 Surgeon: Sebastian Bunn MD; Location: [facility] TUBAL LIGATION 1987 Current Outpatient Medications Medication Sig Dispense Refill zolpidem (AMBIEN) 10 mg tablet Take 1 tablet by mouth at bedtime as needed f or Insomnia. 90 tablet 1 Diclofenac Sodium 1 % gel Apply 2 g to neck qid 100 g 0 ergocalciferol, vitamin d2, 1,250 mcg (50,000 unit) capsule Take 1 capsule b y mouth weekly for 8 doses. 8 capsule 0 LORazepam 1 mg tablet Take one tablet [...] mouth 2 (two) times daily with m aldo. 60 capsule 2 metroNIDAZOLE 500 mg tablet TK 1 T PO BID X 7 DAYS 0 methotrexate 2.5 mg tablet Take by mouth TAKE 5 TABLETS BY MOUTH 1 TIME WEEK LY 60 tablet 0 CYCLOBENZAPRINE 5 mg tablet TAKE 1 TABLET BY MOUTH THREE TIMES DAILY 30 tabl et 0 metoclopramide HCl 10 mg tablet Take 1 tablet by mouth every 6 (six) hours a s needed for Nausea and Vomiting (N/V) (headache) for up to 15 doses. 15 tablet 0 Polyethylene Glycol 3350 (MIRALAX) 17 gram powder Take 1 Packet by mouth estrella ry 4 (four) hours as needed for Constipation for up to 12 doses. 12 Packet 0 hydroCHLOROthiazide 25 mg tablet Take 1 tablet by mouth daily. 30 tablet 11 Miconazole-Skin Clnsr17 (MONISTAT 7 CREAM, APPL, WIPES) 2 % (100 mg)- 2 % Ki t Use as directed 1 Kit 5 ondansetron 4 mg disintegrating tablet DISSOLVE ONE TAB IN MOUTH EVERY 8 MACKENZIE RS NEEDED FOR NAUSEA FOR UP TO 30 DAYS 0 gabapentin 600 mg tablet Take 1 tablet by mouth 3 (three) times daily. 90 ta blet 6 miconazole (MICONAZOLE 7) 2 % vaginal cream Insert 1 Applicator into vagina at bedtime. 45 g 0 foLIC acid 1 mg tablet One daily 90 tablet 3 azithromycin 250 mg tablet Take 250 mg by mouth. VENTOLIN HFA 90 mcg/actuation inhaler INHALE 2 PUFFS Q 4 H PRF WHEEZING OR B REATHLESSNESS 5 No current facility-administered medications for this visit. Remicade 7 mg/kg Q 8 W PHYSICAL EXAM: Vitals: 08/19/19 1400 BP: 116/70 BP Location: Left arm Patient Position: Sitting BP CUFF SIZE: Adult Large Pulse: 98 Resp: 16 Temp: 36.7 C (98 F) TempSrc: Oral SpO2: 98% Weight: 194 lb 14.4 oz (88.4 kg) GENERAL: Alert OX3 NAD, minimally interactive SKIN: no rashes HEENT: within normal limits, no lymphadenopathy, no oral ulcers noted. No paroti d enlargement noted. NECK: C-spine with reduced ROM. No lymphadenopathy. No axial lypmhadenopathy LUNGS: clear without wheezes or crackles. HEART: normal, regular rate and rhythm, S1 - S2 , no gallops, clicks or rubs. NEUROMUSCULAR: No muscular weakness proximally or distally. MSK: b/l shoulders,elbows,wrists,hands,knees,ankles - ROM is reasonable. No syn ovitis noted EXT: Jose negative. No calf or thigh pain or swelling b/l Head to occiput- able to touch the wall Modified Gloria test- less than 5 cm. FABERE positive. Reduced lateral flexion Labs reviewed 10/2016 TSH normal 02/2016 CBC, CMP- nl ESR - 30 CRP -1.4 (improvd from 9.9) 11/2015 CBC, CMP- nl CRP - 9.9, ESR -109 QTFG - negative HBsAg, HCV ab - negative 06/2014 CBC,CMP - wnl 03/2014 ESR - elevated 64 and CRP of 4.9 06/2014 CT abdomen/pelvis from 2013 showed the posterior facets of the bilateral sacral iliac joints are fused. Asymmetric, left larger than right, bridging syndesmophytes are identified about the lower lumbar spine. 06/23/15 MCV 99.5. CMP unremarkable. UA 2+ blood, 6 RBC and 3 HIGH DENSITY PRESS OPERATOR. 01/06/15 CRP 1.1. ESR 29. MCV 98.8. B27 positive QG negative 04/25/16 ESR 42. UA needed to be repeated, but sent do ER for fever when pulido d with result. CRP 2. CMP, P and Mg WNL. MCV 101.2. 07/20/15 UA 2 + blood and 15 RBC (PCP ref to urology, pending). MCV 103.4. 08/15/16 - Labs not done. 02/06/17 MCV 102.5. CMP WNL. UA 2 + bl. 13 R. 3+HIGH DENSITY PRESS OPERATOR. 05/15/17 CBC MCV 102.1 CRP 1.8. CMP WNL 11/24/17 WNL or UR were CBC, CBC and UA 01/12/18 CBC UR. CMP TPro 8.6 (8.2), AST 41 (40) 07/16/18 MCV 102.3. ESR/CRP 39/1.4. UA 1 + bl. Vit D 22 (normal by IOM standar d). TSH WNL. CK WNL. 10/15/18 MCV 102.1. ESR/CRP 33/1.4. WNL rest of CBC and CMP 04/02/19 Lab n/d 04/17/19 MCV 100.7 BMP and LFT WNL ASSESSMENT/ PLAN: Ankylosing spondylitis (primary encounter diagnosis) HLA B27 + Comment: diagnosed in 2003. CT abdomen showed fusion of the SI joints and histo ry of iritis.Per the chart review, Remicade helped to control her eye inflammati on. Musculoskeletal pains markedly worsened per pt when MTX and Remicade were stoppe d due to MAC infection. In 11/21, upon her insistence and after reviewing the literature, she was restar carlita on Remicade infusions(5mg /kg every 8 weeks)and MTX 3 tabs/week along with d carissa FA(after she was on 1 month of MAC therapy). This was done only after she s igned the informed consent with her godmother as witness. She also agreed to be compliant with her MAC treatment. She stopped MAC tx based on a negative cultur e/smear in June 2016. she was advised to stay on MAC therapy for at least 2 years, and perhaps forever given unusual circumstance of being on Remicade MTX increased to 5 weekly. She went off her MAC therapy, but did not indicate Dr. Hogan told her to stop. Weheld her Remicade and MTX. Dr. Hogan arrange d for MAC therapy DOT via skype and we r/s Remicade and MTX. Doing better, but had flare of iritis (see below). Dr. Good (outside ophth) recommended increas ing Remicade. It's now at 7 mg /kg. She will f/u with him to see how she is do ing and if further adjustments are needed. C/O diffuse pain including LUJAN and fe els she has neuropathy. Saw neurology. MRI brain negative, but swelling noted around Waldeyer's ring incidentally. No adenopathy on exam today. Referred to ENT, but it does not appear that that was ever set up. Will put in consult aga in today. Concern regarding CA given history of meds. Still not done. Seeing many other specialists. Will have to f/u with Dr. Good re uveitis. Plan: - Remicade infusions 7mg/kg every 8 weeks to r/s once she gets her lab done and it's reported. Advised to call for results and remind us to r/s it in a day or two. - Pain control - Gets pain meds from PCP. - methotrexate 5 tablets weekly. Same as above for Remicade - folic acid - continue H/o 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 Complex Comment: cultured from sputum when seen by Dr. Hogan for cough and possible hemoptysis at [facility]. CT not very impressive. f/u with Dr. Hogan for the MAC i nfection. Plan: Will neeed to continue the treatment for MAC infection while she is on Rem icade - advised to f/u with Dr. 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 Restarted. Dr. Vallejo injected. She switched to Dr. Good outside [facility]. He recommended increasing Remicade. We upped it to 7 mg/kg. Will get his last note. Plan: educated about the importance of following up with Ophthalmology and advis ed to be compliant with the follow ups. Needs to f/u to see effect of intervent ion. - encouraged her to keep her appointments with opthalmology and contact them abo [facility] of drops and they need to let us know if the increased Remicade dose helpe d. F/u with Dr. Good and let me know if any changes are needed. Schizoaffective disorder, bipolar type Plan: advised to f/u with her PCP and Psychiatry. She appears to be less combat dian Encounter for long-term (current) use of other high-risk medications Comment: On remicade infusions and MTX 5 tabs weekly Plan: - pt counseled on the adverse effects of Methotrexate including teratogeni city and need for reliable contraception, Alopecia, infection, liver dysfunction and myelosupression, including the importance of taking daily Folic acid - have discussed with potential adverse effects with use of biologics such as marquez ppression of immune system making pt more prone to infections, to hold the medic ation if she has any signs fo any infection and to restart only after infection has cleared, reactivation of infections particularly TB and hepatitis B, C, leobardo al infections, risk of demyelinating disorders and to stop medication immediatly if she notes any weakness or paraesthesias, risk of malignancy. Obstructive sleep apnea History of snoring Comment: Pt c/o insomnia, and hx of snoring. Saw sleep clinic and had sleep daniella dy which was positive for obstructive sleep apnea Plan: -follow with pulmonary/sleep and is about to start using Rx CPAP Weight gain Comment: TSH is normal, Etiology unclear Plan: -management per PCP - referred to bariatrics. Would like to have surgery. Will consider given medical issues, but may be needed as obesity will not help her c omorbid states. Meniscus tear, right Comment: Patient has been complaining of pain in her right knee, she had an MRI of right knee in 12/2016 which showed meniscal tear. Evaluated by orthopedics a nd recommended surgical repair, however the patient is not inclined to have surg mandy Plan: Follow-up with orthopedics Skin darkening and needs NMSC check Plan - encouraged to see derm, regularly. At least yearly. Recurrent vaginal yeast infection and chronic hematuria/mostly microscopic Plan - Had consult with nephrology on order by other provider. Follow up to be sure the vaginal yeast infection has cleared. If it worsens or spreads may have to reconsider DMARD, bDMARD therapy. Will check QFG today. Should keep vaccine UTD with Dr. Hogan and/or PCP. S sal Mazariegos for NMSC checks. Orders Placed This Encounter Procedures CBC WITH DIFF SEDIMENTATION RATE C-REACTIVE PROTEIN COMP. 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 documented in this encounter Plan of Treatment Care Team Description Date Type Specialty Omar Clay DO [address] [place] [address] [phone] Pcp-Lab Arrived 08/19/2019 Attacher Phlebotomy Visit Day Ndiaye MD [address] [place] [phone] 09/01/2019 Office [place] [address] [place] [phone] 09/18/2019 Office Visit Family Medicine Jay-Bonychris Giuliano, GORE STITCHER [address] [place] [address] [phone] 09/23/2019 Office Visit Orthopedic Surgery Sebastian Doe MD [id number] [place], [place] [address] 10/28/2019 Office Visit Pain Medicine Omar Clay, DO [address] [place] [address] [phone] 11/18/2019 Office Visit Rheumatology Order Schedule Name Type Priority Associated Diag noses Ordered: 08/19/2019 CBC WITH DIFF LAB Routine Ankylosing spon dylitis of multiple sites in spine Ordered: 08/19/2019 SEDIMENTATION RATE LAB Routine Ankylosing spondylitis of multiple sites in spine Ordered: 08/19/2019 C-REACTIVE PROTEIN LAB Routine Ankylosing spondylitis of multiple sites in spine Ordered: 08/19/2019 COMP. METABOLIC PANEL LAB Routine Ankylosi ng spondylitis of (50564) multiple sites in spine Ordered: 08/19/2019 QUANTIFERON-TB ASSAY LAB Routine Ankylosin g spondylitis of multiple sites in spine Health Maintenance Due Date Last Done Comments [...] Head, Donal Uhr Bipolar BIPOLAR Right: Hip [place] [id number] #[id number] - [id number] head Implanted: Qty: 1 on 09/18/2017 by Sebastian Bunn MD at [facility] 07/07/2021 1023-12 / [id number] / [id number] Cancellous Cubes, Community Tissue BONE Right: Hip Replaced By [facility] Services Freeze Dried 30 Cc Tissue #1023-12 - [id number] Services Implanted: Qty: 1 on 09/18/2017 by Sebastian Bunn MD at [facility] 03/08/2018 2018-40 / [id number] / [id number] Dbm Putty Maxxeus 10cc Cts #2018-40 BONE Right: Hip Replaced By [facility] - [id number] Tissue Implanted: Qty: 1 on 09/18/2017 by Services Sebastian Bunn MD at [facility] 04/07/2022 [id number] / 0 / [id number] Ceramic Femoral Head 28mm +5 Head Right: Hip Depuy 06/21 Taper Depuy Ref#[id number] Synthes Implanted: Qty: 1 on 09/18/2017 by Sebastian Bunn MD at [facility] 03/29/2022 [id number] / 0 / [id number] Insert, [place] Trident 0deg 44mm Liner Right: Hip [place] #[id number] Implanted: Qty: 1 on 09/18/2017 by Sebastian Bunn MD at [facility] 04/24/2022 5260-5-050 / 0 / [id number] Screw Osteolock 3.[address] SCREW Right: Hip [place] Cancellous 50mm [place] Ref#[id number] Implanted: Qty: 2 on 09/18/2017 by Sebastian Bunn MD at [facility] 06/01/2022 5260-5-020 / 0 / [id number] Screw Ostelock 3.[address] SCREW Right: Hip [place] Cancellous 20mm [place] Ref#[id number] Implanted: Qty: 1 on 09/18/2017 by Sebastian Bunn MD at [facility] 06/01/2022 5260-5-016 / 0 / [id number] Screw Osteolock 3.[address] SCREW Right: Hip Donal Cancellous 18mm [place] Ref#[id number] Implanted: Qty: 1 on 09/18/2017 by [...] spondylitis of multiple site s in spine - Primary Ankylosing spondylitis Mycobacterium avium infection Pulmonary diseases due to other mycobac teria Therapeutic drug monitoring Encounter for therapeutic drug monitori ng Anterior uveitis Unspecified iridocyclitis Schizoaffective disorder, bipolar type Schizoaffective disorder, unspecified c ondition documented in this encounter Insurance Type Payer Benefit Subscriber ID Effective Phone Address Plan / Dates Group Medicare Adv O [facility] [id number] 2018- MANAGED MEDICARE HEALTHCARE Present DUAL COMPLETE O Medicaid [facility] MEDICAID xxxxxxxxx 2019-P [phone] P O [facility] [address] [place] [address] documented as of this encounter Advance Directives Patient Reactor Fueling Supervisor Explanation Type Date Recorded 0 Advance Directives 08/08/2013 8:00 AM and Living Will Power of Child Day Care Center Worker 08/08/2013 8:00 AM
--- OUTSIDE RECORDS SUMMARY | 2019-12-13 15:32 | XMS REPORT | Summary of Care ---
Author Author [facility] - Health Organization [facility] - Health Address Unknown Phone Unavailable Care Team Providers Care Toll Service Observer Name Role Phone Ovidoi Clarke MD PCP Reason for Referral * (Routine) Referred By Contact Referred To Contact Status Reason Specialty Diagnoses / Procedures Omar Clay, DO [address] [place] [address] New Request Otolaryngology Diagnoses Ankylosing spondylitis of multiple sites in spine P rocedures CONSULT/REFERRAL ENT Reason for Visit * Reason Comments Follow-up Encounter Details Care Team Description Date Type Department Omar Clay, DO [address] [place] [address] Ankylosing spondylitis of multiple sites in spine (Primary Dx); Mycobacterium avium infection; Therapeutic drug monitoring; Anterior uveitis; Schizoaffective disorder, bipolar type 08/19/2019 Office Visit [facility] [address], [address] [place] [address] Allergies Comments Active Allergy Reactions [...] Added automatically from request for jimmy solorio [id number] Cervical spondylosis with radiculopathy 01/01/2019 Overview: Added automatically from request for jimmy solorio [id number] Mixed hyperlipidemia 08/13/2018 Overview: LDL 140 07/17/2018 Left tennis elbow 06/17/2018 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 Overview: R Avulsion fracture of lateral epicondyle of humerus 0 11/14/2017 Painful patella, unspecified laterality 11/05/2017 S/P revision of total hip 09/18/2017 Colon cancer screening 05/24/2017 Overview: Added automatically from request for jimmy solorio [id number] Hematemesis with nausea 05/24/2017 Overview: Added automatically from request for jimmy solorio [id number] Nausea and vomiting, intractability of vomiting not s pecified, unspecified 05/24/2017 vomiting type Overview: Added automatically from request for jimmy solorio [id number] ANJELICA (obstructive sleep apnea) 05/10/2017 Obesity (BMI 30-39.9) 05/01/2017 Microhematuria 02/14/2017 Complex tear of medial meniscus of right knee as curr ent injury, initial 01/18/2017 encounter Overview: Added automatically from request for jimmy solorio [id number] Elevated MCV 07/25/2016 Overview: 103.4 07/22/2016 Muscle [...] Hiatus hernia syndrome 04/09/2015 Overview: EGD 03/23/2015 [facility] screening mammogram 01/06/2015 Immunization deficiency [...] lower leg 11/25/2013 Overview: ICD10 Diagnosis Term 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 Lloyd Glossitis 02/23/2010 Tobacco use disorder 02/23/2010 Menorrhagia 05/19/2009 Vision blurred 05/19/2009 Acute upper respiratory infection 08/14/2008 Overview: ICD10 Diagnosis Term [employer] Helper Utility Acute pharyngitis 08/14/2008 Screening for malignant neoplasm of cervix Overview: ICD10 Diagnosis Term [employer] Utility Breast screening 07/16/2008 Overview: ICD10 Diagnosis Term [employer] Helper Utility Urinary tract infection, site not specified 04/29/20 08 Backache 06/02/2007 Overview: Lower back pain ICD10 Diagnosis Term [employer] Hel[employer] Utility Pain in joint 06/02/2007 Overview: ICD10 Diagnosis Term [employer] Helper Utility Cervicalgia 06/02/2007 Myalgia and myositis 06/02/2007 Overview: Bilateral trapezius pain ICD10 Diagnosis Term [employer] Hel[employer] Utility Absence of menstruation 04/25/2007 Anemia 03/25/2007 Overview: ICD10 Diagnosis Term [employer] Helper Utility Helicobacter pylori infection 06/11/2006 Overview: ICD10 Diagnosis Term Coc[employer] Helper Utility Acute peptic ulcer 06/11/2006 Overview: ICD10 Diagnosis Term Coc[employer] Roaster Helper Utility Abdominal pain 04/25/2006 Overview: ICD10 Diagnosis Term Coc[employer]aster Helper Utility Ankylosing spondylitis 04/25/2006 Vaginitis and vulvovaginitis 04/25/2006 Overview: ICD10 Diagnosis Term Coc[employer] Helper Utility Other, mixed, or unspecified nondependent drug [...] eatures 11/30/2005 02/11/2018 Overview: ICD10 Diagnosis Term Cocoa [employer] Roaster Helper Utility documented as of this encounter (statuses [...] Comments Vital Sign 116/70 08/19/2019 2:00 PM HUMAN RESOURCES SPECIALIST Blood Pressure 98 08/19/2019 2:00 PM HUMAN RESOURCES SPECIALIST Pulse 36.7 C (98 F) 08/19/2019 2:00 PM HUMAN RESOURCES SPECIALIST Temperature 16 08/19/2019 2:00 PM HUMAN RESOURCES SPECIALIST Respiratory Rate 98% 08/19/2019 2:00 PM HUMAN RESOURCES SPECIALIST Oxygen Saturation - - Inhaled Oxygen Concentration 88.4 kg (194 lb 14.4 oz) 08/19/2019 2:00 PM HUMAN RESOURCES SPECIALIST Weight - - Height 32.43 07/29/2019 1:19 PM HUMAN RESOURCES SPECIALIST Body Mass Index documented in this encounter Progress Notes * Omar Clay, DO - 08/19/2019 2:00 PM HUMAN RESOURCES SPECIALIST f/u of Ankylosing Spondylitis (B27 + / SIJ fusion) complicated by 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 She was On Remicade 5 mg/kg IV every 6 weeks and MTX weekly in the past. Howeve r, she was seen at [facility] for cough and perhaps some hemoptysis. [...] to interruption in Remicad e. Saw Dr. Vallejo. Injected eye. She started seeing Dr. Good (ophth outside [facility]) and he recommended increasing Remicade. The dose [...] vaccines UTD. When last seen Dr. Good ([facility] [place]), reported iritis to be stable. Needs f/u. [...] LOCATION CERVICAL EPIDURAL STEROID INJECTION 03/26/2012 Surgeon: Magde Franklin MD PHD; Location: [facility] CERVICAL EPIDURAL STEROID INJECTION N/A 01/23/2019 Surgeon: Sebsatian Doe; Location: [facility] Location COLONOSCOPY N/A 06/22/2015 Surgeon: Arian To MD; Location: [facility] LOC[facility] COLONOSCOPY N/A 02/17/2019 Surgeon: Ricco Hannah DO; Location: [facility] Location EGD (ENDO) 03/23/2015 [place] [facility] ESOPHAGOGASTRODUODENOSCOPY 04/13 ulcers ESOPHAGOGASTRODUODENOSCOPY 06/15 ESOPHAGOGASTRODUODENOSCOPY 10/07/2009 mild nonerosive gastritis ESOPHAGOGASTRODUODENOSCOPY N/A 06/22/2015 Surgeon: Arian To MD; Location: [facility] LOCATION ESOPHAGOGASTRODUODENOSCOPY N/A 02/17/2019 Surgeon: Ricco Hannah DO; Location: [facility] Location FLEXIBLE BRONCHOSCOPY 05/24/2015 Magui Hogan [employer] HIP HEMIARTHROPLASTY 2000 Right KNEE ARTHROSCOPY Right 01/06/2014 Surgeon: Girish Fountain MD; Location: [facility] RUTH OPEN CARPAL TUNNEL RELEASE Right 07/15/2019 Surgeon: Zia Resendez MD; Location: [facility] Location NV ARTHRS KNE SURG W/MENISCECTOMY MED/LAT W/SHVG [...] UA 2+ blood, 6 RBC and 3 CERTIFIED OPHTHALMIC MEDICAL TECHNICIAN. 01/06/15 CRP 1.1. ESR 29. MCV 98.8. [...] WNL. UA 2 + bl. 13 R. 3+CERTIFIED OPHTHALMIC MEDICAL TECHNICIAN. 05/15/17 CBC MCV 102.1 CRP 1.8. CMP [...] Hogan for cough and possible hemoptysis at [facility]. CT not very impressive. f/u with Dr. Hogan for the MAC i nfection. Plan: Will neeed to continue the treatment for MAC infection while she is on Rem icade - advised to f/u with Dr. 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 Restarted. Dr. Vallejo injected. She switched to Dr. Good outside [facility]. He recommended increasing Remicade. We upped it to 7 mg/kg. Will get his last note. Plan: educated about the importance of following up with Ophthalmology and advis ed to be compliant with the follow ups. Needs to f/u to see effect of intervent ion. - encouraged her to keep her appointments with opthalmology and contact them abo [facility] of drops and they need to let [...] SEDIMENTATION RATE C-REACTIVE PROTEIN COMP. METABOLIC PANEL (79270) QUANTIFERON-TB ASSAY CONSULT/REFERRAL ENT RTC 3 months N RESOURCES SPECIALIST documented in this encounter Plan of Treatment Care Team Description Date Type Specialty Omar Clay DO [address] [place] [address] [phone] Pcp-Lab Arrived 08/19/2019 Mortgage Analyst Phlebotomy Visit Day Ndiaye MD [address] [place] [phone] 09/01/2019 Office [place] [address] [place] [phone] 09/18/2019 Office Visit Family Medicine Jay-Bonychris Giuliano, RAMP FLIGHT ATTENDANT [address] [place] [address] [phone] 09/23/2019 Office Visit Orthopedic Surgery Sebastian Doe MD [address] [place], [place] [address] 10/28/2019 Office Visit Pain Medicine Omar Clay, DO [address] [place] [address] [phone] 11/18/2019 Office Visit Rheumatology Order Schedule Name [...] PANEL LAB Routine Ankylosi ng spondylitis of (68268) multiple sites in spine Ordered: 08/19/2019 QUANTIFERON-TB [...] Head, Donal Uhr Bipolar BIPOLAR Right: Hip [place] [id number] #[id number] - S0 head Implanted: Qty: 1 on 09/18/2017 by Sebastian Bunn MD at [facility] 07/07/2021 1023-12 / [id number] / [id number] Cancellous Cubes, Community Tissue BONE Right: Hip [facility] Services Freeze Dried 30 Cc Tissue #1023-12 - [id number] Services Implanted: Qty: 1 on 09/18/2017 by Sebastian Bunn MD at [facility] 03/08/2018 2018-40 / [id number] / [id number] Dbm Putty Maxxeus 10cc Cts #2018-40 BONE Right: Hip [facility] - [id number] Tissue Implanted: Qty: 1 on 09/18/2017 by Services Sebastian Bunn MD at [facility] 04/07/2022 1365-28-720 / 0 / [id number] Delta Ceramic Femoral Head 28mm +5 Head Right: Hip Depuy 06/21 Taper Depuy Ref#[id number] Synthes Implanted: Qty: 1 on 09/18/2017 by Sebastian Bunn MD at [facility] 03/29/2022 623-00-44F / 0 / [id number] Insert, [place] Trident 0deg 44mm Liner Right: Hip [place] #[id number] Implanted: Qty: 1 on 09/18/2017 by Sebastian Bunn MD at [facility] 04/24/2022 5260-5-050 / 0 / [id number] Screw Osteolock 3.[address] SCREW Right: Hip [place] Cancellous 50mm [place] Ref#[id number] Implanted: Qty: 2 on 09/18/2017 by Sebastian Bunn MD at [facility] 06/01/2022 5260-5-020 / 0 / [id number] Screw Ostelock 3.[address] SCREW Right: Hip [place] Cancellous 20mm [place] Ref#[id number] Implanted: Qty: 1 on 09/18/2017 by Sebastian Bunn MD at [facility] 06/01/2022 5260-5-016 / 0 / [id number] Screw Osteolock 3.[address] SCREW Right: Hip Donal Cancellous 18mm [place] Ref#[id number] Implanted: Qty: 1 on 09/18/2017 by Sebastian Bunn MD at [facility] 01/02/2022 509-02-60F / 0 / [id number] Shell, Donal Tritanium Revision Shell Right: Hip Donal Acetabular #[id number] - S0 Implanted: Qty: 1 on 09/18/2017 by Sebastian Bunn MD at [facility] documented as of this encounter Results [...] Plan / Dates Group Medicare Adv O [facility] [id number] 2018- MANAGED MEDICARE HEALTHCARE Present DUAL COMPLETE O Medicaid [facility] MEDICAID xxxxxxxxx 2019-P [phone] P O [facility] [address] [place] [address] documented as of this encounter Advance Directives 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
--- OUTSIDE RECORDS SUMMARY | 2019-12-13 15:32 | XMS REPORT | Summary of Care ---
Author Author [facility] - Health Organization [facility] - Health Address Unknown Phone Unavailable Care Team Providers Care Well Reactivator Operator Name Role Phone Ovidio Clarke MD PCP Reason for Visit * Reason Comments Pain Encounter Details Care Team Description Date Type Department Sebastian Doe MD [id number] [place] [address] Cervical spondylosis with radiculopathy (Primary Dx); Ankylosing spondylitis, unspecified site of spine; Carpal tunnel syndrome of right wrist; Chronic pain syndrome 07/29/2019 Office Visit [facility] Health Anesthe salma [facility] [address] [place] [phone] Allergies Comments Active Allergy Reactions Severity Noted [...] colon Overview: Added automatically from request for Moneylib [id number] Cervical spondylosis with radiculopathy 01/01/2019 Overview: Added automatically from request for Moneylib [id number] Mixed hyperlipidemia 08/13/2018 Overview: LDL 140 07/17/2018 Left tennis elbow 06/17/2018 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 Overview: R Avulsion fracture of lateral epicondyle of humerus 0 11/14/2017 Painful patella, unspecified laterality 11/05/2017 S/P revision of total hip 09/18/2017 Colon cancer screening 05/24/2017 Overview: Added automatically from request for Moneylib [id number] Hematemesis with nausea 05/24/2017 Overview: Added automatically from request for Moneylib [id number] Nausea and vomiting, intractability of vomiting not s pecified, unspecified 05/24/2017 vomiting type Overview: Added automatically from request for Moneylib [id number] ANJELICA (obstructive sleep apnea) 05/10/2017 Obesity (BMI 30-39.9) 05/01/2017 Microhematuria 02/14/2017 Complex tear of medial meniscus of right knee as curr ent injury, initial 01/18/2017 encounter Overview: Added automatically from request for jimmy solorio [id number] Elevated MCV 07/25/2016 Overview: 103.4 07/22/2016 Muscle [...] lobe nodular opacitiy on chest xray at [facility] 05/22/2015 Hiatus hernia syndrome 04/09/2015 Overview: [...] lower leg 11/25/2013 Overview: ICD10 Diagnosis Term [employer] Founder Utility Knee crepitus 11/25/2013 Genu valgum, acquired 11/25/2013 Overview: ICD10 Diagnosis Term [employer] Utility Patellofemoral misalignment with pain 11/25/2013 Primary [...] 11/16/2010 Headache 04/08/2010 Overview: ICD10 Diagnosis Term [employer] Utility Nonerosive nonspecific gastritis 04/08/2010 Overview: EGD Dr. Lloyd Glossitis 02/23/2010 Tobacco use disorder 02/23/2010 Menorrhagia 05/19/2009 Vision blurred 05/19/2009 Acute upper respiratory infection 08/14/2008 Overview: ICD10 Diagnosis Term [employer] Utility Acute pharyngitis 08/14/2008 Screening for malignant neoplasm of cervix Overview: ICD10 Diagnosis Term [employer] Utility Breast screening 07/16/2008 Overview: ICD10 Diagnosis Term [employer] Utility Urinary tract infection, site not specified 04/29/20 08 Backache 06/02/2007 Overview: Lower back pain ICD10 Diagnosis Term [employer] Utility Pain in joint 06/02/2007 Overview: ICD10 Diagnosis Term [employer] Utility Cervicalgia 06/02/2007 Myalgia and myositis 06/02/2007 Overview: Bilateral trapezius pain ICD10 Diagnosis Term [employer] Utility Absence of menstruation 04/25/2007 Anemia 03/25/2007 Overview: ICD10 Diagnosis Term [employer] Utility Helicobacter pylori infection 06/11/2006 Overview: ICD10 Diagnosis Term [employer] Utility Acute peptic ulcer 06/11/2006 Overview: ICD10 Diagnosis Term [employer] Utility Abdominal pain 04/25/2006 Overview: ICD10 Diagnosis Term [employer]ounder Utility Ankylosing spondylitis 04/25/2006 Vaginitis and vulvovaginitis 04/25/2006 Overview: ICD10 Diagnosis Term [employer] Utility Other, mixed, or unspecified nondependent drug [...] eatures 11/30/2005 02/11/2018 Overview: ICD10 Diagnosis Term [employer] Utility documented as of this encounter (statuses [...] Comments Vital Sign 130/85 07/29/2019 1:20 PM MEDICAL EQUIPMENT REPAIR TECHNICIAN Blood Pressure 97 07/29/2019 1:20 PM MEDICAL EQUIPMENT REPAIR TECHNICIAN Pulse - - Temperature - - Respiratory Rate 96% 07/29/2019 1:19 PM MEDICAL EQUIPMENT REPAIR TECHNICIAN Oxygen Saturation - - Inhaled Oxygen Concentration 87.5 kg (193 lb) 07/29/2019 1:19 PM MEDICAL EQUIPMENT REPAIR TECHNICIAN Weight 165.1 cm (5' 5") 07/29/2019 1:19 PM MEDICAL EQUIPMENT REPAIR TECHNICIAN Height 32.12 07/29/2019 1:19 PM MEDICAL EQUIPMENT REPAIR TECHNICIAN Body Mass Index documented in this encounter Progress Notes * Sebastian Doe MD - 07/29/2019 2:30 PM MEDICAL EQUIPMENT REPAIR TECHNICIAN I personally examined the patient on 07/29/2019 and agree with the resident note as written. I actively participated in the decision-making process. Please see the resident's note for additional details. Dr. Sebastian Doe Asst. Prof. Dept of Anesthesiology And Interventional Pain Medicine CAL EQUIPMENT REPAIR TECHNICIAN * Naseem Crespo MD - 07/29/2019 2:30 PM MEDICAL EQUIPMENT REPAIR TECHNICIAN PAIN MANAGEMENT CLINIC PROGRESS NOTE 07/29/2019 Chief [...] tid prn - Voltaren1 % gel - [place] 1 tablet prn ADVERSE EFFECTS FROM CURRENT [...] 04/09/2015 EGD 03/23/2015 [facility] Immunization deficiency 10/09/2014 She is NOT immune [...] Surgeon: Maged Franklin MD PHD; Location: [facility] OR LOCATION CERVICAL EPIDURAL STEROID INJECTION N/A 01/23/2019 Surgeon: Sebastian Doe; Location: [facility] COLONOSCOPY N/A 06/22/2015 Surgeon: Arian To MD; Location: [facility] COLONOSCOPY N/A 02/17/2019 Surgeon: Ricco Hannah DO; Location: [facility] EGD (ENDO) 03/23/2015 [facility] [place] ESOPHAGOGASTRODUODENOSCOPY 04/13 ulcers ESOPHAGOGASTRODUODENOSCOPY 06/15 ESOPHAGOGASTRODUODENOSCOPY 10/07/2009 [...] Right 07/15/2019 Surgeon: Zia Resendez MD; Location: [place] [facility] Location ID ARTHRS KNE SURG W/MENISCECTOMY MED/LAT W/SHVG 01/06/2014 ID KNEE SCOPE,REMV LOOSE BODY 01/06/2014 TOTAL HIP ARTHROPLASTY REVISION Right 09/18/2017 Surgeon: Sebastian Bunn MD; Location: [facility] Location TUBAL LIGATION 1988 Review of [...] tid prn - Voltaren1 % gel - [place] 1 tablet prn Rehab: Physical therapy Yes Psych: Seen psychology - yes Compliance : CASKET LINER reviewed Follow Up: in 3 months Patient was discussed with Dr. Nader MD. Naseem Crespo MD Anesthesia, CA-1 07/29/2019 1:28 PM CAL EQUIPMENT REPAIR TECHNICIAN documented in this encounter Plan of Treatment Care Team Description Date Type Specialty Giuliano Gardner FNP [address] [place] [address] [phone] 08/08/2019 Appointment Radiology 3, Jennifer Adult Infusion Nurse 08/15/2019 Nurse Visit [place] [address] [place] [phone] 09/18/2019 Office Visit Family Medicine Giuliano Gardner FNP [address] [place] [address] [phone] 09/23/2019 Office Visit Orthopedic Surgery CookSebastian MD [address] [place] [address] [phone] 10/28/2019 Office Visit Pain Medicine Health Maintenance [...] Donal Uhr Bipolar BIPOLAR Right: Hip Donal 14x73dx #[id number] - S0 head Implanted: Qty: 1 on 09/18/2017 by Sebastian Bunn MD at [facility] 07/07/2021 1023-12 / [id number] / [id number] Cancellous Cubes, Community Tissue BONE Right: Hip Community Services Freeze Dried 30 Cc Tissue #1023-12 - [id number] Services Implanted: Qty: 1 on 09/18/2017 by Sebastian Bunn MD at [facility] 03/08/2018 2018-40 / [id number] / [id number] Dbm Fadi Chaparros 10 Cts #2018-40 BONE Right: Hip [facility] [id number] Tissue Implanted: Qty: 1 on 09/18/2017 by Services Sebastian Bunn MD at [facility] 04/07/2022 1365-28-720 / 0 / [id number] Delta Ceramic Femoral Head 28mm +5 Head Right: Hip Depuy 06/21 Taper Depuy Ref#[id number] Synthes Implanted: Qty: 1 on 09/18/2017 by Sebastian Bunn MD at [facility] 03/29/2022 623-00-44F / 0 / [id number] Insert, Donal Trident 0deg 44mm Liner Right: Hip Donal #[id number] Implanted: Qty: 1 on 09/18/2017 by Sebastian Bunn MD at [facility] 04/24/2022 5260-5-050 / 0 / [id number] Screw Osteolock 3.[address] SCREW Right: Hip Donal Cancellous 50mm [place] Ref#[id number] Implanted: Qty: 2 on 09/18/2017 by Sebastian Bunn MD at [facility] 06/01/2022 5260-5-020 / 0 / [id number] Screw Ostelock 3.[address] SCREW Right: Hip [place] Cancellous 20mm Donal Ref#[id number] Implanted: Qty: 1 on 09/18/2017 by Sebastian Bunn MD at [facility] 06/01/2022 5260-5-016 / 0 / [id number] Screw Osteolock 3.[address] SCREW Right: Hip Donal Cancellous 18mm [place] Ref#[id number] Implanted: Qty: 1 on 09/18/2017 by Sebastian Bunn MD at [facility] 01/02/2022 509-02-60F / 0 / [id number] Shell, [place] Tritanium Revision Shell Right: Hip Donal Acetabular [...] Plan / Dates Group Medicare Adv O [facility] [id number] 2018- MANAGED MEDICARE HEALTHCARE Present DUAL COMPLETE O Medicaid [facility] MEDICAID xxxxxxxxx 2019-P [phone] [address] documented as of this encounter Advance Directives Patient Barker Operator Explanation Type Date Recorded 0 Advance Directives 08/08/2013 8:00 AM and Living Will Power of Associate Curator 08/08/2013 8:00 AM
--- OUTSIDE RECORDS SUMMARY | 2019-12-13 15:32 | XMS REPORT | Summary of Care ---
Author Author [facility] - Health Organization [facility] - Health Address Unknown Phone Unavailable Care Team Providers Care Mobile Application Developer Name Role Phone Ovidio Clarke MD PCP Reason for Referral * (Routine) Referred By Contact Referred To Contact Status Reason Specialty Diagnoses / Procedures Giuliano Gardner, SMOKING PIPE REPAIRER [address] [place] [phone] Closed Occupational Diagnoses Therapy Carpal tunnel syndrome on right P rocedures CONSULT/REFERRAL OCCUPATIONAL THERAPY * Radiology Services (Routine) Referred By Contact Referred To Contact Status Reason Specialty Diagnoses / Procedures Giuliano Gardner, SMOKING PIPE REPAIRER [address] [place] [phone] New Request Diagnostic Diagnoses Radiology Postmenopausal bone loss P rocedures DEXA PERIPHERAL (FOREARM) * Radiology Services (Routine) Referred By Contact Referred To Contact Status Reason Specialty Diagnoses / Procedures Giuliano Gardner, SMOKING PIPE REPAIRER [address] [place] [phone] Authorized Diagnostic Diagnoses Radiology Postmenopausal bone loss P rocedures DEXA AXIAL (HIP AND SPINE) Reason for Visit * Reason Comments POST-OP hand * (Routine) Referred By Contact Referred To Contact Status Reason Specialty Diagnoses / Procedures Zia Resendez MD [id number] [place] [address] Closed ORT-ORTHOPAEDIC Diagnoses SURGERY / Carpal tunnel Orthopedic syndrome on right Surgery P rocedures Discharge Follow-Up: Specialty Service ORT-ORTHOPAEDIC SURGERY; 2 Weeks (10-14 days) Encounter Details Care Team Description Date Type Department Giuliano Gardner, ALVIN [address] [place] [address] [phone] Carpal tunnel syndrome on right (Primary Dx); Postmenopausal bone loss; Ankylosing spondylitis of multiple sites in spine 07/31/2019 Office Visit [facility] edic Surgery- [facility] [address] [facility] [address] [place] [address] Allergies Comments Active Allergy Reactions Severity Noted Date Aspirin Hives 03/21/2012 Sulfa (Sulfonamide Hives 11/29/2005 Antibiotics) documented as of this encounter (statuses as of 08/05/2019) Medications End Date Status Medication Sig Dispensed [...] as of this encounter (statuses as of 08/05/2019) Active Problems Problem Noted Date Essential hypertension 03/19/2019 Carpal tunnel syndrome on right 03/19/2019 Overview: EMG 02/18/2019 Special screening for malignant neoplasms, colon Overview: Added automatically from request for Mandiant [id number] Cervical spondylosis with radiculopathy 01/01/2019 Overview: Added automatically from request for [employer]iant [id number] Mixed hyperlipidemia 08/13/2018 Overview: LDL 140 07/17/2018 Left tennis elbow 06/17/2018 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 Overview: R Avulsion fracture of lateral epicondyle of humerus 0 11/14/2017 Painful patella, unspecified laterality 11/05/2017 S/P revision of total hip 09/18/2017 Colon cancer screening 05/24/2017 Overview: Added automatically from request for [employer]iant [id number] Hematemesis with nausea 05/24/2017 Overview: Added automatically from request for [employer]iant [id number] Nausea and vomiting, intractability of vomiting not s pecified, unspecified 05/24/2017 vomiting type Overview: Added automatically from request for [employer]iant [id number] ANJELICA (obstructive sleep apnea) 05/10/2017 Obesity (BMI 30-39.9) 05/01/2017 Microhematuria 02/14/2017 Complex tear of medial meniscus of right knee as curr ent injury, initial 01/18/2017 encounter Overview: Added automatically from request for [employer]iant [id number] Elevated MCV 07/25/2016 Overview: 103.4 07/22/2016 Muscle [...] lobe nodular opacitiy on chest xray at [facility] 05/22/2015 Hiatus hernia syndrome 04/09/2015 [...] lower leg 11/25/2013 Overview: ICD10 Diagnosis [employer] Knee crepitus 11/25/2013 Genu valgum, acquired 11/25/2013 Overview: ICD10 Diagnosis [employer] Patellofemoral misalignment with pain 11/25/2013 Primary [...] 11/16/2010 Headache 04/08/2010 Overview: ICD10 Diagnosis [employer] Nonerosive nonspecific gastritis 04/08/2010 Overview: EGD Dr. Lloyd Glossitis 02/23/2010 Tobacco use disorder 02/23/2010 Menorrhagia 05/19/2009 Vision blurred 05/19/2009 Acute upper respiratory infection 08/14/2008 Overview: ICD10 Diagnosis [employer] Acute pharyngitis 08/14/2008 Screening for malignant neoplasm of cervix 9 Overview: ICD10 Diagnosis [employer] Breast screening 07/16/2008 Overview: ICD10 Diagnosis [employer] Urinary tract infection, site not specified 04/29/20 08 Backache 06/02/2007 Overview: Lower back pain ICD10 Diagnosis [employer] Pain in joint 06/02/2007 Overview: ICD10 Diagnosis [employer] Cervicalgia 06/02/2007 Myalgia and myositis 06/02/2007 Overview: Bilateral trapezius pain ICD10 Diagnosis [employer] Absence of menstruation 04/25/2007 Anemia 03/25/2007 Overview: ICD10 Diagnosis [employer] Helicobacter pylori infection 06/11/2006 Overview: ICD10 Diagnosis [employer] Acute peptic ulcer 06/11/2006 Overview: ICD10 Diagnosis [employer] Abdominal pain 04/25/2006 Overview: ICD10 Diagnosis [employer] Ankylosing spondylitis 04/25/2006 Vaginitis and vulvovaginitis 04/25/2006 Overview: ICD10 Diagnosis [employer] Other, mixed, or unspecified nondependent drug abuse, continuous 11/30/2005 documented as of this encounter (statuses as of 08/05/2019) Resolved Problems Problem Noted Date Resolved Date Arm laceration, right, subsequent encounter 04/13/2014 04/13/2014 Syncope and collapse 02/27/2007 06/28/2014 Bipolar I disorder, most recent episode (or current) unspec ified 01/03/2007 01/23/2018 Overview: Dr. 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 11/30/2005 02/11/2018 Overview: ICD10 Diagnosis [employer] documented as of this encounter (statuses as of 08/05/2019) Immunizations Name Administration Dates Next Due Hepatitis [...] Comments Vital Sign 103/62 07/31/2019 9:30 AM DROP PRESS HAND Blood Pressure 104 07/31/2019 9:30 AM DROP PRESS HAND Pulse 35.9 C (96.7 F) 07/31/2019 9:30 AM DROP PRESS HAND Temperature - - Respiratory Rate - - Oxygen Saturation - - Inhaled Oxygen Concentration 87.2 kg (192 lb 4.8 oz) 07/31/2019 9:30 AM DROP PRESS HAND Weight - - Height 32 07/29/2019 1:19 PM DROP PRESS HAND Body Mass Index documented in this encounter Progress Notes * Giuliano Gardner, ALVIN - 07/31/2019 10:30 AM DROP PRESS HAND [facility] Note CC: neck pain HPI History of Present Illness: Juan Tinoco is a 53 year old female coming in [facility] with chief complaint of neck. This has [...] 02/11/2012 Hiatus hernia syndrome 04/09/2015 EGD 03/23/2015 [facility] Immunization deficiency 10/09/2014 She is NOT immune [...] Right 01/06/2014 Surgeon: Girish Fountain MD; Location: [facility] OR LOCATION ARTHROSCOPIC MENISCAL REPAIR Right 01/06/2014 Surgeon: Girish Fountain MD; Location: [facility] OR LOCATION CERVICAL EPIDURAL STEROID INJECTION 03/26/2012 Surgeon: Maged Franklin MD PHD; Location: [facility] OR LOCATION CERVICAL EPIDURAL STEROID INJECTION N/A 01/23/2019 Surgeon: Sebastian Doe; Location: [facility] OR Location COLONOSCOPY N/A 06/22/2015 Surgeon: Arian To MD; Location: [facility] OR LOCATION COLONOSCOPY N/A 02/17/2019 Surgeon: Ricco Hannah DO; Location: [facility] OR Location EGD (ENDO) 03/23/2015 [facility] ESOPHAGOGASTRODUODENOSCOPY 04/13 ulcers ESOPHAGOGASTRODUODENOSCOPY 06/15 ESOPHAGOGASTRODUODENOSCOPY 10/07/2009 mild nonerosive gastritis ESOPHAGOGASTRODUODENOSCOPY N/A 06/22/2015 Surgeon: Arian To MD; Location: [facility] OR LOCATION ESOPHAGOGASTRODUODENOSCOPY N/A 02/17/2019 Surgeon: Ricco Hannah DO; Location: [facility] OR Location FLEXIBLE BRONCHOSCOPY 05/24/2015 Magui Hogan HIP HEMIARTHROPLASTY 2001 Right KNEE ARTHROSCOPY Right 01/06/2014 Surgeon: Girish Fountain MD; Location: [facility] OR LOCATION OPEN CARPAL TUNNEL RELEASE Right 07/15/2019 Surgeon: Zia Resendez MD; Location: [facility] OR Location DE ARTHRS KNE SURG W/MENISCECTOMY MED/LAT W/SHVG 01/06/2014 DE KNEE SCOPE,REMV LOOSE BODY 01/06/2014 TOTAL HIP ARTHROPLASTY REVISION Right 09/18/2017 Surgeon: Sebastian Bunn MD; Location: [facility] OR [facility] TUBAL LIGATION 1988 ROS Constitutional: negative Eyes: [...] Median nerve compression at right carpal tunnel Assessment: Juan Tinoco is a 53 year old female with right carpal tunnel release 0. Plan: -Suture removed today. -Ordered DEXA and labs. -Referred to OT for the post op rehab. -Continue Gabapentin and muscle relaxer. ALVIN Kelly. Orthopedics surgery. T documented in this encounter Plan of Treatment Care Team Description Date Type Specialty Giuliano Gardner FNP [address] [place] [address] [phone] 08/08/2019 Appointment Radiology 3, Jennifer Adult Infusion Nurse 08/15/2019 Nurse Visit [place] [address] [place] [phone] 09/18/2019 Office Visit Family Medicine Giuliano Gardner FNP [address] [place] [address] [phone] 09/23/2019 Office Visit Orthopedic Surgery Sebastian Doe MD [id number] [place] [address] [phone] 10/28/2019 Office Visit Pain Medicine Order Schedule [...] UH1-44-28 / 0 / [id number] Bipolar Head, Sturgeon Uhr Bipolar BIPOLAR Right: Hip Sturgeon 11y71ex #Uh1-44-28 - S0 head Implanted: Qty: 1 on 09/18/2017 by Sebastian Bunn MD at [facility] 07/07/2021 1023-12 / [id number] / [id number] Cancellous Cubes, Community Tissue BONE Right: Hip [facility] Freeze Dried 30 Cc Tissue #1023-12 - [id number] Services Implanted: Qty: 1 on 09/18/2017 by Sebastian Bunn MD at [facility] 03/08/2018 2018-40 / [id number] / [id number] Dbm Putty Maxxeus 10cc Cts #2017-40 BONE Right: Hip [facility] - [id number] Tissue Implanted: Qty: 1 on 09/18/2017 by Services Sebastian Bunn MD at [facility] 04/07/2022 1365-28-720 / 0 / [id number] Delta Ceramic Femoral Head 28mm +5 Head Right: Hip Depuy 06/21 Taper Depuy Ref#[id number] Synthes Implanted: Qty: 1 on 09/18/2017 by Sebastian Bunn MD at [facility] 03/29/2022 623-00-44F / 0 / [id number] Insert, Donal Trident 0deg 44mm Liner Right: Hip Donal #[id number] Implanted: Qty: 1 on 09/18/2017 by Sebastian Bunn MD at [facility] 04/24/2022 5260-5-050 / 0 / [id number] Screw Osteolock 3.[address] SCREW Right: Hip Donal Cancellous 50mm Sturgeon Ref#[id number] Implanted: Qty: 2 on 09/18/2017 by Sebastian Bunn MD at [facility] 06/01/2022 5260-5-020 / 0 / [id number] Screw Ostelock 3.[address] SCREW Right: Hip Donal Cancellous 20mm Donal Ref#[id number] Implanted: Qty: 1 on 09/18/2017 by Sebastian Bunn MD at [facility] 06/01/2022 5260-5-016 / 0 / [id number] Screw Osteolock 3.[address] SCREW Right: Hip Sturgeon Cancellous 18mm Donal Ref#[id number] Implanted: Qty: 1 on 09/18/2017 by Sebastian Bunn MD at [facility] 01/02/2022 509-02-60F / 0 / [id number] Shell, Donal Tritanium Revision Shell Right: Hip Sturgeon Acetabular #[id number] - S0 Implanted: Qty: 1 on 09/18/2017 by Sebastian Bunn MD at [facility] documented as of this encounter Procedures Comments Procedure Name Priority Date/Time Associated Diag nosis VITAMIN D, 25-OH Routine 07/31/2019 Postmenopausa l bone loss 10:15 AM DROP PRESS HAND INTACT PTH CALCIUM GROUP Routine 07/31/2019 Postm enopausal bone loss 10:15 AM DROP PRESS HAND VITAMIN B12, LEVEL Routine 07/31/2019 Postmenopau marjorie bone loss 10:15 AM DROP PRESS HAND MAGNESIUM Routine 07/31/2019 Postmenopausal bone loss 10:15 AM DROP PRESS HAND documented in this encounter Results * MAGNESIUM (07/31/2019 10:15 AM DROP PRESS HAND) MAGNESIUM 2.1 1.7 - 2.4 mg/dL [facility] LABORATOR Y SERVICES-[facility] Specimen Blood Performing Organization Address City/State/Zipcode Ph one Number [facility] CLIA: [id number], [address] [place], [place] [address] SERVICES-[facility] * VITAMIN B12, LEVEL (07/31/2019 10:15 AM DROP PRESS HAND) VIT B12 345 240 - 930 pg/mL [facility] Y SERVICES Specimen Blood Narrative Performed At Biotin has been reported to cause a pos itive bias, interpret results relative to [facility] patient's use of biotin. SERVICES Performing Organization Address City/State/[facility] Ph one Number [facility] CLIA: [id number], [address] [place] [address] [facility] * INTACT PTH CALCIUM GROUP (07/31/2019 10:15 AM DROP PRESS HAND) CALCIUM 9.9 8.6 - 10.6 mg/dL [facility] PTH-INTACT 62.3 12.0 - 88.0 pg/mL [facility] SERVICES PTH-CA Comment: PTH IS Appropriate [facility] Interpretation for Calcium SERVICES Specimen Blood Performing Organization Address City/State/[facility] Ph one Number [facility] CLIA: [id number], [address] [place] [address] [facility] * VITAMIN D, 25-OH (07/31/2019 10:15 AM DROP PRESS HAND) VIT D 25OH 18 (L) 25 - 80 ng/mL [facility] SERVICES Specimen Blood Narrative Performed At Deficiency: <20 ng/mL [facility] Insufficiency: 20-24 ng/mL SERVICES Optimal: 25-80 ng/mL Performing Organization Address City/State/Zipcode Ph one Number [facility] CLIA: [id number], [address] [place] [address] [address] documented in this encounter Visit Diagnoses Diagnosis Carpal tunnel syndrome on right - Prima ry Carpal tunnel syndrome Postmenopausal bone loss Senile osteoporosis Ankylosing spondylitis of multiple site s in spine Ankylosing spondylitis documented in this encounter Insurance Type Payer Benefit Subscriber ID Effective Phone Address Plan / Dates Group Medicare Adv O [facility] [id number] 2018- MANAGED MEDICARE HEALTHCARE Present DUAL COMPLETE HMO Medicaid [facility] MEDICAID xxxxxxxxx 2019-P [phone] [address] documented as of this encounter Advance Directives Patient Service Associate Explanation Type Date Recorded 0 Advance Directives 08/08/2013 8:00 AM and Living Will Power of Pt Skilled 08/08/2013 8:00 AM"
--- OUTSIDE RECORDS SUMMARY | 2019-12-13 15:32 | XMS REPORT | Summary of Care ---
Author Author [facility] - Health Organization [facility] - Health Address Unknown Phone Unavailable Care Team Providers Care Lathe Winder Name Role Phone Ovidio Clarke MD PCP Reason for Referral * (Routine) Referred By Contact Referred To Contact Status Reason Specialty Diagnoses / Procedures Omar Clay, DO [address] [place] [address] New Request Otolaryngology Diagnoses Ankylosing spondylitis of multiple sites in spine P rocedures CONSULT/REFERRAL ENT Reason for Visit * Reason Comments Follow-up Encounter Details Care Team Description Date Type Department Omar Clay, DO [address] [place] [address] Ankylosing spondylitis of multiple sites in spine (Primary Dx); Mycobacterium avium infection; Therapeutic drug monitoring; Anterior uveitis; Schizoaffective disorder, bipolar type 08/19/2019 Office Visit [facility] [address], [address] [place] [address] Allergies Comments Active Allergy Reactions [...] Added automatically from request for jimmy solorio [id number] Cervical spondylosis with radiculopathy 01/01/2019 Overview: Added automatically from request for jimmy solorio [id number] Mixed hyperlipidemia 08/13/2018 Overview: LDL 140 07/17/2018 Left tennis elbow 06/17/2018 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 Overview: R Avulsion fracture of lateral epicondyle of humerus 0 11/14/2017 Painful patella, unspecified laterality 11/05/2017 S/P revision of total hip 09/18/2017 Colon cancer screening 05/24/2017 Overview: Added automatically from request for jimmy solorio [id number] Hematemesis with nausea 05/24/2017 Overview: Added automatically from request for jimmy solorio [id number] Nausea and vomiting, intractability of vomiting not s pecified, unspecified 05/24/2017 vomiting type Overview: Added automatically from request for jimmy solorio [id number] ANJELICA (obstructive sleep apnea) 05/10/2017 Obesity (BMI 30-39.9) 05/01/2017 Microhematuria 02/14/2017 Complex tear of medial meniscus of right knee as curr ent injury, initial 01/18/2017 encounter Overview: Added automatically from request for jimmy solorio [id number] Elevated MCV 07/25/2016 Overview: 103.4 07/22/2016 Muscle [...] on chest xray at [facility] 05/22/2015 Hiatus hernia syndrome 04/09/2015 [...] lower leg 11/25/2013 Overview: ICD10 Diagnosis Term Second Worker Utility Knee crepitus 11/25/2013 Genu valgum, acquired 11/25/2013 Overview: ICD10 Diagnosis Term Second Worker Utility Patellofemoral misalignment with pain 11/25/2013 [...] 11/16/2010 Headache 04/08/2010 Overview: ICD10 Diagnosis Term Second Worker Utility Nonerosive nonspecific gastritis 04/08/2010 Overview: EGD Dr. Lloyd Glossitis 02/23/2010 Tobacco use disorder 02/23/2010 Menorrhagia 05/19/2009 Vision blurred 05/19/2009 Acute upper respiratory infection 08/14/2008 Overview: ICD10 Diagnosis Term Second Worker Utility Acute pharyngitis 08/14/2008 Screening for malignant neoplasm of cervix Overview: ICD10 Diagnosis Term Second Worker Utility Breast screening 07/16/2008 Overview: ICD10 Diagnosis Term Second Worker Utility Urinary tract infection, site not specified 04/29/20 08 Backache 06/02/2007 Overview: Lower back pain ICD10 Diagnosis Term Second Worker Utility Pain in joint 06/02/2007 Overview: ICD10 Diagnosis Term Second Worker Utility Cervicalgia 06/02/2007 Myalgia and myositis 06/02/2007 Overview: Bilateral trapezius pain ICD10 Diagnosis Term Second Worker Utility Absence of menstruation 04/25/2007 Anemia 03/25/2007 Overview: ICD10 Diagnosis Term Second Worker Utility Helicobacter pylori infection 06/11/2006 Overview: ICD10 Diagnosis Term Second Worker Utility Acute peptic ulcer 06/11/2006 Overview: ICD10 Diagnosis Term Second Worker Utility Abdominal pain 04/25/2006 Overview: ICD10 Diagnosis Term Second Worker Utility Ankylosing spondylitis 04/25/2006 Vaginitis and vulvovaginitis 04/25/2006 Overview: ICD10 Diagnosis Term Second Worker Utility Other, mixed, or unspecified nondependent [...] eatures 11/30/2005 02/11/2018 Overview: ICD10 Diagnosis Term Second Worker Utility documented as of this encounter [...] Comments Vital Sign 116/70 08/19/2019 2:00 PM RESEARCH CHEMIST Blood Pressure 98 08/19/2019 2:00 PM RESEARCH CHEMIST Pulse 36.7 C (98 F) 08/19/2019 2:00 PM RESEARCH CHEMIST Temperature 16 08/19/2019 2:00 PM RESEARCH CHEMIST Respiratory Rate 98% 08/19/2019 2:00 PM RESEARCH CHEMIST Oxygen Saturation - - Inhaled Oxygen Concentration 88.4 kg (194 lb 14.4 oz) 08/19/2019 2:00 PM RESEARCH CHEMIST Weight - - Height 32.43 07/29/2019 1:19 PM RESEARCH CHEMIST Body Mass Index documented in this encounter Progress Notes * Omar Clay, DO - 08/19/2019 2:00 PM RESEARCH CHEMIST f/u of Ankylosing Spondylitis (B27 + / SIJ fusion) complicated by 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 She was On Remicade 5 mg/kg IV every 6 weeks and MTX weekly in the past. Howeve r, she was seen at [facility] for cough and perhaps some hemoptysis. [...] started seeing Dr. Good (ophth outside [facility]) and he recommended increasing Remicade. The [...] UTD. When last seen Dr. Good ([facility]), reported iritis to be stable. Needs f/u. [...] 02/11/2012 Hiatus hernia syndrome 04/09/2015 EGD 03/23/2015 [facility] Immunization deficiency 10/09/2014 She is NOT immune [...] INJECTION N/A 01/23/2019 Surgeon: Sebastian Doe; Location: [facility] Location COLONOSCOPY N/A 06/22/2015 Surgeon: Arian To MD; Location: [facility] COLONOSCOPY N/A 02/17/2019 Surgeon: Ricco Hannah DO; Location: [facility] Location EGD (ENDO) 03/23/2015 [place] ESOPHAGOGASTRODUODENOSCOPY 04/13 ulcers ESOPHAGOGASTRODUODENOSCOPY 06/15 ESOPHAGOGASTRODUODENOSCOPY 10/07/2009 mild nonerosive gastritis ESOPHAGOGASTRODUODENOSCOPY N/A 06/22/2015 Surgeon: Arian To MD; Location: [facility] LOC[facility] ESOPHAGOGASTRODUODENOSCOPY N/A 02/17/2019 Surgeon: Ricco Hannah DO; Location: [facility] Location FLEXIBLE BRONCHOSCOPY 05/24/2015 Magui Hogan [employer] HIP HEMIARTHROPLASTY 2000 Right KNEE ARTHROSCOPY Right 01/06/2014 Surgeon: Girish Fountain MD; Location: [facility] OR RUTH OPEN CARPAL TUNNEL RELEASE Right 07/15/2019 Surgeon: Zia Resendez MD; Location: [facility] OR Location OR ARTHRS KNE SURG W/MENISCECTOMY MED/LAT W/SHVG 01/06/2014 OR KNEE SCOPE,REMV LOOSE BODY 01/06/2014 TOTAL HIP [...] UA 2+ blood, 6 RBC and 3 FIRE OBSERVER. 01/06/15 CRP 1.1. ESR 29. MCV 98.8. [...] WNL. UA 2 + bl. 13 R. 3+FIRE OBSERVER. 05/15/17 CBC MCV 102.1 CRP 1.8. CMP [...] Hogan for cough and possible hemoptysis at [facility]. CT not very impressive. f/u with Dr. Hogan for the MAC i nfection. Plan: Will neeed to continue the treatment for MAC infection while she is on Rem icade - advised to f/u with Dr. 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 Restarted. Dr. Vallejo injected. She switched to Dr. Good outside [facility]. He recommended increasing Remicade. We upped it to 7 mg/kg. Will get his last note. Plan: educated about the importance of following up with Ophthalmology and advis ed to be compliant with the follow ups. Needs to f/u to see effect of intervent ion. - encouraged her to keep her appointments with opthalmology and contact them abo [facility] of drops and they need to [...] vaccine UTD with Dr. Hogan and/or PCP. Salvatore huang Derm for NMSC checks. Orders Placed This Encounter Procedures CBC WITH DIFF SEDIMENTATION RATE C-REACTIVE PROTEIN COMP. METABOLIC PANEL (99853) QUANTIFERON-TB ASSAY CONSULT/REFERRAL ENT RTC 3 months ARCH CHEMIST documented in this encounter Plan of Treatment Care Team Description Date Type Specialty Susan Naylor PA-C [address] [place] [address] [phone] 08/28/2019 Office Visit Otolaryngology Day Ndiaye MD [address] [place] [phone] 09/01/2019 Office [place] [address] [place] [address] 09/18/2019 Office Visit Family Medicine Giuliano Gardner, MANAGER IMPLEMENTATION [address] [place] [address] [phone] 09/23/2019 Office Visit Orthopedic Surgery Sebastian Doe MD [id number] [place], [place] [address] 10/28/2019 Office Visit Pain Medicine Omar Clay, DO [address] [place] [address] [phone] 11/18/2019 Office Visit Rheumatology Order Schedule Name [...] PANEL LAB Routine Ankylosi ng spondylitis of (57509) multiple sites in spine Ordered: 08/19/2019 QUANTIFERON-TB ASSAY LAB Routine Ankylosin g spondylitis of multiple sites in spine Ordered: 08/19/2019 CBC WITH DIFFERENTIAL LAB Routine Ankylosi ng spondylitis of multiple sites in spine Health [...] UH1-44-28 / 0 / [id number] Bipolar Head, [place] Uhr Bipolar BIPOLAR Right: Hip [place] 57z47ix #Uh1-44-28 - S0 head Implanted: Qty: 1 on 09/18/2017 by Sebastian Bunn MD at [facility] 07/07/2021 1023-12 / [id number] / [id number] Cancellous Cubes, [facility] Tissue BONE Right: Hip [facility] Services Freeze Dried 30 Cc Tissue #1023-12 - [id number] Services Implanted: Qty: 1 on 09/18/2017 by Sebastian Bunn MD at [facility] 03/08/2018 2018-40 / [id number] / [id number] Dbm Putty Maxxeus 10cc Cts #2018-40 BONE Right: Hip [facility] - [id number] Tissue Implanted: Qty: 1 on 09/18/2017 by Services Sebastian Bunn MD at [facility] 04/07/2022 1365-28-720 / 0 / [id number] Delta Ceramic Femoral Head 28mm +5 Head Right: Hip Depuy 06/21 Taper Depuy Ref#[id number] Synthes Implanted: Qty: 1 on 09/18/2017 by Sebastian Bunn MD at [facility] 03/29/2022 623-00-44F / 0 / [id number] Insert, [place] Trident 0deg 44mm Liner Right: Hip Donal #[id number] Implanted: Qty: 1 on 09/18/2017 by Sebastian Bunn MD at [facility] 04/24/2022 5260-5-050 / 0 / [id number] Screw Osteolock 3[address] SCREW Right: Hip [place] Cancellous 50mm Donal Ref#[id number] Implanted: Qty: 2 on 09/18/2017 by Sebastian Bunn MD at [facility] 06/01/2022 5260-5-020 / 0 / [id number] Screw Ostelock 3.[address] SCREW Right: Hip [place] Cancellous 20mm [place] Ref#[id number] Implanted: Qty: 1 on 09/18/2017 by Sebastian Bunn MD at [facility] 06/01/2022 5260-5-016 / 0 / [id number] Screw Osteolock 3.[address] SCREW Right: Hip Donal Cancellous 18mm Donal Ref#[id number] Implanted: Qty: 1 on 09/18/2017 by Sebastian Bunn MD at [facility] 01/02/2022 509-02-60F / 0 / [id number] Shell, Donal Tritanium Revision Shell Right: Hip [place] Acetabular #[id number] - S0 Implanted: Qty: 1 on 09/18/2017 by Sebastian Bunn MD at [facility] documented as of this encounter [...] Address Plan / Dates Group Medicare Adv [facility] [id number] 2018- MANAGED MEDICARE HEALTHCARE Present DUAL COMPLETE O Medicaid [facility] MEDICAID xxxxxxxxx 2019-P [phone] P [address] [facility] [id number] [place] [address] documented as of this encounter Advance Directives Patient Eye Specialist Explanation Type Date Recorded 0 Advance Directives 08/08/2013 8:00 AM and Living Will Power of Carton Forming Machine Operator 08/08/2013 8:00 AM
--- OUTSIDE RECORDS SUMMARY | 2019-12-13 15:33 | XMS REPORT | Summary of Care ---
Author Author [facility] - Health Organization [facility] - Health Address Unknown Phone Unavailable Care Team Providers Care Academic Guidance Specialist Name Role Phone Ovidio Clarke MD PCP Reason for Referral * (Routine) Referred By Contact Referred To Contact Status Reason Specialty Diagnoses / Procedures Omar Clay, [address] [place] [id number] Authorized Infusion Therapy Diagnoses Rheumatoid arthritis, involving unspecified site, unspecified rheumatoid factor presence P rocedures CONSULT/REFERRAL AMB INFUSION THERAPY Preferred location: [place] ([facility] 3rd Floor) Reason for Visit * Reason Comments New Medication Encounter Details Care Team Description Date Type Department Omar Clay DO [address] [place] [address] [id number] New Medication 08/23/2019 Telephone [facility] [address] [place] [phone] Allergies Comments Active Allergy Reactions Severity Noted Date Aspirin Hives 03/21/2012 Sulfa (Sulfonamide Hives 11/29/2005 Antibiotics) documented as of this encounter (statuses as of 08/25/2019) Medications End Date Status Medication Sig Dispensed Refills Start Date Active azithromycin 250 mg Take 250 mg 0 tablet by mouth. Active VENTOLIN HFA 90 INHALE 2 5 mcg/actuation inhaler PUFFS Q 4 H 8 PRF WHEEZING OR BREATHLESSNES S Active miconazole (MICONAZOLE 7) Insert 1 45 [...] TIMES unspecified site of spine DAILY Active metroNIDAZOLE 500 mg TK 1 T [...] bedtime as type needed for Insomnia. Active foLIC acid 1 mg Take 2 180 tablet 3 tabletIndications: tablets by 0 Rheumatoid arthritis, mouth daily. involving unspecified site, unspecified rheumatoid factor presence 08/23/2019 Discontinued foLIC acid 1 mg tablet One daily 90 tablet 3 8 08/25/2019 Discontinued methotrexate 2.5 mg Take by mouth 60 tablet 0 05/10 tabletIndications: TAKE 5 9 Ankylosing spondylitis of TABLETS BY multiple sites in spine MOUTH 1 TIME WEEKLY documented as of this encounter (statuses as of 08/25/2019) Active Problems Problem Noted Date Essential hypertension 03/19/2019 Carpal tunnel syndrome on right 03/19/2019 Overview: EMG 02/18/2019 Special screening for malignant neoplasms, colon Overview: Added automatically from request for jimmy solorio [id number] Cervical spondylosis with radiculopathy 01/01/2019 Overview: Added automatically from request for jimmy solorio [id number] Mixed hyperlipidemia 08/13/2018 Overview: LDL 140 07/17/2018 Left tennis elbow 06/17/2018 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 Overview: R Avulsion fracture of lateral epicondyle of humerus 0 11/14/2017 Painful patella, unspecified laterality 11/05/2017 S/P revision of total hip 09/18/2017 Colon cancer screening 05/24/2017 Overview: Added automatically from request for jimmy solorio [id number] Hematemesis with nausea 05/24/2017 Overview: Added automatically from request for jimmy solorio [id number] Nausea and vomiting, intractability of vomiting not s pecified, unspecified 05/24/2017 vomiting type Overview: Added automatically from request for jimmy solorio [id number] ANJELICA (obstructive sleep apnea) 05/10/2017 Obesity (BMI 30-39.9) 05/01/2017 Microhematuria 02/14/2017 Complex tear of medial meniscus of right knee as curr ent injury, initial 01/18/2017 encounter Overview: Added automatically from request for jimmy solorio [id number] Elevated MCV 07/25/2016 Overview: 103.4 07/22/2016 Muscle [...] nodular opacitiy on chest xray at [facility] 05/22/2015 Hiatus hernia syndrome 04/09/2015 Overview: EGD 03/23/2015 [facility] screening mammogram 01/06/2015 Immunization deficiency 10/09/2014 Overview: [...] lower leg 11/25/2013 Overview: ICD10 Diagnosis Term Ball Shagger Utility Knee crepitus 11/25/2013 Genu valgum, acquired 11/25/2013 Overview: ICD10 Diagnosis Term Ball Shagger Utility Patellofemoral misalignment with pain 11/25/2013 Primary [...] 11/16/2010 Headache 04/08/2010 Overview: ICD10 Diagnosis Term Ball Shagger Utility Nonerosive nonspecific gastritis 04/08/2010 Overview: EGD Dr. Lloyd Glossitis 02/23/2010 Tobacco use disorder 02/23/2010 Menorrhagia 05/19/2009 Vision blurred 05/19/2009 Acute upper respiratory infection 08/14/2008 Overview: ICD10 Diagnosis Term Ball Shagger Utility Acute pharyngitis 08/14/2008 Screening for malignant neoplasm of cervix Overview: ICD10 Diagnosis Term Ball Shagger Utility Breast screening 07/16/2008 Overview: ICD10 Diagnosis Term Ball Shagger Utility Urinary tract infection, site not specified 04/29/20 08 Backache 06/02/2007 Overview: Lower back pain ICD10 Diagnosis Term Ball Shagger Utility Pain in joint 06/02/2007 Overview: ICD10 Diagnosis Term Ball Shagger Utility Cervicalgia 06/02/2007 Myalgia and myositis 06/02/2007 Overview: Bilateral trapezius pain ICD10 Diagnosis Term Ball Shagger Utility Absence of menstruation 04/25/2007 Anemia 03/25/2007 Overview: ICD10 Diagnosis Term Ball Shagger Utility Helicobacter pylori infection 06/11/2006 Overview: ICD10 Diagnosis Term Ball Shagger Utility Acute peptic ulcer 06/11/2006 Overview: ICD10 Diagnosis Term Ball Shagger Utility Abdominal pain 04/25/2006 Overview: ICD10 Diagnosis Term Ball Shagger Utility Ankylosing spondylitis 04/25/2006 Vaginitis and vulvovaginitis 04/25/2006 Overview: ICD10 Diagnosis Term Ball Shagger Utility Other, mixed, or unspecified nondependent drug abuse, continuous 11/30/2005 documented as of this encounter (statuses as of 08/25/2019) Resolved Problems Problem Noted Date Resolved Date Arm laceration, right, subsequent encounter 04/13/2014 04/13/2014 Syncope and collapse 02/27/2007 06/28/2014 Bipolar I disorder, most recent episode (or current) unspec ified 01/03/2007 01/23/2018 Overview: Dr. 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 11/30/2005 02/11/2018 Overview: ICD10 Diagnosis Term Ball Shagger Utility documented as of this encounter (statuses as of 08/25/2019) Immunizations Name Administration Dates Next Due Hepatitis [...] Date Type Specialty Susan Naylor PA-C [address] [place] [address] [phone] 08/28/2019 Office Visit Otolaryngology Day Ndiaye MD [address] [place] [address]. [place] [address] 09/01/2019 Office [place] [address] [place] [address] 09/18/2019 Office Visit Family Medicine Giuliano Gardner, [employer] [employer] [address] [place], [place] [address] 09/23/2019 Office Visit Orthopedic Surgery Sebastian Doe MD [address] [facility] [id number] [place], [place] [address] 10/28/2019 Office Visit Pain Medicine Omar Clay, DO [address] [place] [address] [phone] 11/18/2019 Office Visit Rheumatology Health Maintenance Due [...] Head, Donal Uhr Bipolar BIPOLAR Right: Hip Tuttle 90a43yl #Uh1-44-28 - S0 head Implanted: Qty: 1 on 09/18/2017 by Sebastian Bunn MD at [facility] 07/07/2021 1023-12 / [id number] / [id number] Cancellous Cubes, Community Tissue BONE Right: Hip [facility] Services Freeze Dried 30 Cc Tissue #1023-12 - [id number] Services Implanted: Qty: 1 on 09/18/2017 by Sebastian Bunn MD at [facility] 03/08/2018 2018-40 / [id number] / [id number] Dbm Putty Maxxeus 10cc Cts #2017-40 BONE Right: Hip [facility] - [id number] Tissue Implanted: Qty: 1 on 09/18/2017 by Services Sebastian Bunn MD at [facility] 04/07/2022 1365-28-720 / 0 / [id number] Delta Ceramic Femoral Head 28mm +5 Head Right: Hip Depuy 06/21 Taper Depuy Ref#[id number] Synthes Implanted: Qty: 1 on 09/18/2017 by Sebastian Bunn MD at [facility] 03/29/2022 623-00-44F / 0 / [id number] Insert, Donal Trident 0deg 44mm Liner Right: Hip Tuttle #[id number] Implanted: Qty: 1 on 09/18/2017 by Sebastian Bunn MD at [facility] 04/24/2022 5260-5-050 / 0 / [id number] Screw Osteolock 3.[address] SCREW Right: Hip Tuttle Cancellous 50mm Donal Ref#[id number] Implanted: Qty: 2 on 09/18/2017 by Sebastian Bnun MD at [facility] 06/01/2022 5260-5-020 / 0 / [id number] Screw Ostelock 3.[address] SCREW Right: Hip Donal Cancellous 20mm Tuttle Ref#[id number] Implanted: Qty: 1 on 09/18/2017 by Sebastian Bunn MD at [facility] 06/01/2022 5260-5-016 / 0 / [id number] Screw Osteolock 3.[address] SCREW Right: Hip Tuttle Cancellous 18mm Tuttle Ref#[id number] Implanted: Qty: 1 on 09/18/2017 by Sebastian Bunn MD at [facility] 01/02/2022 509-02-60F / 0 / [id number] Shell, Tuttle Tritanium Revision Shell Right: Hip Donal Acetabular #[id number] - S0 Implanted: Qty: 1 on 09/18/2017 by Sebastian Bunn MD at [facility] documented as of this encounter Results Not on filedocumented in this encounter Visit Diagnoses Diagnosis Rheumatoid arthritis, involving unspeci fied site, unspecified rheumatoid factor presence - Primary documented in this encounter Insurance Type Payer Benefit Subscriber ID Effective Phone Address Plan / Dates Group Medicare Adv [facility] [id number] 2018- MANAGED MEDICARE HEALTHCARE Present DUAL COMPLETE HMO [facility] [employer] [id number] 2018- [address] SOLUT[address] H Present [address] [place] [address] Medicaid [facility] MEDICAID xxxxxxxxx 2019-P [phone] [address] [place] [id number] [place] [address] documented as of this encounter Advance Directives Patient Retail Coverage Merchandiser Lead Explanation Type Date Recorded 0 Advance Directives 08/08/2013 8:00 AM and Living Will Power of Ssis Etl Developer 08/08/2013 8:00 AM
--- OUTSIDE RECORDS SUMMARY | 2019-12-13 15:33 | XMS REPORT | Summary of Care ---
Author Author [facility] - [facility] Organization [facility] - Health Address Unknown Phone Unavailable Care Team Providers Care Settlement Processor Name Role Phone Ovidio Clarke MD PCP Reason for Referral * (Routine) Referred By Contact Referred To Contact Status Reason Specialty Diagnoses / Procedures Omar Clay, [address] [place] [id number] Authorized Infusion Therapy Diagnoses Rheumatoid arthritis, involving unspecified site, unspecified rheumatoid factor presence P rocedures CONSULT/REFERRAL AMB INFUSION THERAPY Preferred location: [place] ([facility] 3rd Floor) Reason for Visit * Reason Comments New Medication Encounter Details Care Team Description Date Type Department Omar Clay, [address] [place] [address] [id number] New Medication 08/23/[address] [facility] [address] [place] [phone] Allergies Comments Active Allergy Reactions Severity Noted Date Aspirin Hives 03/21/2012 Sulfa (Sulfonamide Hives 11/29/2005 Antibiotics) documented as of this encounter (statuses as of 08/26/2019) Medications End Date Status Medication Sig Dispensed [...] as of this encounter (statuses as of 08/26/2019) Active Problems Problem Noted Date Essential hypertension 03/19/2019 Carpal tunnel syndrome on right 03/19/2019 Overview: EMG 02/18/2019 Special screening for malignant neoplasms, colon Overview: Added automatically from request for jimmy solorio [id number] Cervical spondylosis with radiculopathy 01/01/2019 Overview: Added automatically from request for jimmy solorio [id number] Mixed hyperlipidemia 08/13/2018 Overview: LDL 140 07/17/2018 Left tennis elbow 06/17/2018 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 Overview: R Avulsion fracture of lateral epicondyle of humerus 0 11/14/2017 Painful patella, unspecified laterality 11/05/2017 S/P revision of total hip 09/18/2017 Colon cancer screening 05/24/2017 Overview: Added automatically from request for jimmy solorio [id number] Hematemesis with nausea 05/24/2017 Overview: Added automatically from request for jimmy solorio [id number] Nausea and vomiting, intractability of vomiting not s pecified, unspecified 05/24/2017 vomiting type Overview: Added automatically from request for jimmy solorio [id number] ANJELICA (obstructive sleep apnea) 05/10/2017 Obesity (BMI 30-39.9) 05/01/2017 Microhematuria 02/14/2017 Complex tear of medial meniscus of right knee as curr ent injury, initial 01/18/2017 encounter Overview: Added automatically from request for jimmy solorio [id number] Elevated MCV 07/25/2016 Overview: 103.4 07/22/2016 Muscle [...] EGD 03/23/2015 [facility] screening mammogram 01/06/2015 Immunization deficiency 10/09/2014 Overview: [...] lower leg 11/25/2013 Overview: ICD10 Diagnosis [employer] Knee crepitus 11/25/2013 Genu valgum, acquired 11/25/2013 Overview: ICD10 Diagnosis [employer] Patellofemoral misalignment with pain 11/25/2013 [...] 11/16/2010 Headache 04/08/2010 Overview: ICD10 Diagnosis [employer] Nonerosive nonspecific gastritis 04/08/2010 Overview: EGD Dr. Lloyd Glossitis 02/23/2010 Tobacco use disorder 02/23/2010 Menorrhagia 05/19/2009 Vision blurred 05/19/2009 Acute upper respiratory infection 08/14/2008 Overview: ICD10 Diagnosis [employer] Acute pharyngitis 08/14/2008 Screening for malignant neoplasm of cervix Overview: ICD10 Diagnosis [employer] Breast screening 07/16/2008 Overview: ICD10 Diagnosis [employer] Urinary tract infection, site not specified 04/29/20 08 Backache 06/02/2007 Overview: Lower back pain ICD10 Diagnosis [employer] Pain in joint 06/02/2007 Overview: ICD10 Diagnosis [employer] Cervicalgia 06/02/2007 Myalgia and myositis 06/02/2007 Overview: Bilateral trapezius pain ICD10 Diagnosis [employer] Absence of menstruation 04/25/2007 Anemia 03/25/2007 Overview: ICD10 Diagnosis [employer] Helicobacter pylori infection 06/11/2006 Overview: ICD10 Diagnosis [employer] Acute peptic ulcer 06/11/2006 Overview: ICD10 Diagnosis [employer] Abdominal pain 04/25/2006 Overview: ICD10 Diagnosis [employer] Ankylosing spondylitis 04/25/2006 Vaginitis and vulvovaginitis 04/25/2006 Overview: ICD10 Diagnosis [employer] Other, mixed, or unspecified nondependent drug abuse, continuous 11/30/2005 documented as of this encounter (statuses as of 08/26/2019) Resolved Problems Problem Noted Date Resolved Date Arm laceration, right, subsequent encounter 04/13/2014 04/13/2014 Syncope and collapse 02/27/2007 06/28/2014 Bipolar I disorder, most recent episode (or current) unspec ified 01/03/2007 01/23/2018 Overview: Dr. 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 [place] [address] 09/01/2019 Office [place] [address] [place] [address] 09/18/2019 Office Visit Family Medicine Giuliano Gardner, ORIENTAL MEDICINE PRACTITIONER [address], [place] [phone] 09/23/2019 Office Visit Orthopedic Surgery Sebastian Doe MD [address] [facility] [id number] [place], [place] [id number] 10/28/2019 Office Visit Pain Medicine Omar Clay, DO [address] [place] [address] [phone] 11/18/2019 Office Visit Rheumatology Health Maintenance Due [...] Head, Donal Uhr Bipolar BIPOLAR Right: Hip Hunt [id number] #[id number] - S0 head Implanted: Qty: 1 on 09/18/2017 by Sebastian Bunn MD at [facility] 07/07/2021 1023-12 / [id number] / [id number] Cancellous Cubes, Community Tissue BONE Right: Hip [facility] Freeze Dried 30 Cc Tissue #1023-12 - [id number] Services Implanted: Qty: 1 on 09/18/2017 by Sebastian Bunn MD at [facility] 03/08/2018 2018-40 / [id number] / [id number] Dbm Putty Maxxeus 10cc Cts #2017-40 BONE Right: Hip [facility] - [id number] Tissue Implanted: Qty: 1 on 09/18/2017 by Services Sebastian Bunn MD at [facility] 04/07/2022 1365-28-720 / 0 / [id number] Delta Ceramic Femoral Head 28mm +5 Head Right: Hip Depuy 06/21 Taper Depuy Ref#[id number] Synthes Implanted: Qty: 1 on 09/18/2017 by Sebastian Bunn MD at [facility] 03/29/2022 623-00-44F / 0 / [id number] Insert, Donal Trident 0deg 44mm Liner Right: Hip Hunt #[id number] Implanted: Qty: 1 on 09/18/2017 by Sebastian Bunn MD at [facility] 04/24/2022 5260-5-050 / 0 / [id number] Screw Osteolock [address] SCREW Right: Hip Hunt Cancellous 50mm Donal Ref#[id number] Implanted: Qty: 2 on 09/18/2017 by Sebastian Bunn MD at [facility] 06/01/2022 5260-5-020 / 0 / [id number] Screw Ostelock 3.[address] SCREW Right: Hip Donal Cancellous 20mm Hunt Ref#[id number] Implanted: Qty: 1 on 09/18/2017 by Sebastian Bunn MD at [facility] 06/01/2022 5260-5-016 / 0 / [id number] Screw Osteolock 3.[address] SCREW Right: Hip Hunt Cancellous 18mm Hunt Ref#[id number] Implanted: Qty: 1 on 09/18/2017 by Sebastian Bunn MD at [facility] 01/02/2022 509-02-60F / 0 / [id number] Shell, Hunt Tritanium Revision Shell Right: Hip Donal Acetabular #[id number] - S0 Implanted: Qty: 1 on 09/18/2017 by Sebastian Bunn MD at [facility] documented as of this encounter Results Not on filedocumented in this encounter Visit Diagnoses Diagnosis Rheumatoid arthritis, involving unspeci fied site, unspecified rheumatoid factor presence - Primary documented in this encounter Insurance Type Payer Benefit Subscriber ID Effective Phone Address Plan / Dates Group Medicare Adv O [facility] [id number] 2018- MANAGED MEDICARE HEALTHCARE Present DUAL COMPLETE HMO [facility] [employer] [id number] 2018- [address] Present [id number] [place] [address] Medicaid [facility] MEDICAID xxxxxxxxx 2019-P [phone] [address] [place] [id number] [place] [address] documented as of this encounter Advance Directives Patient Ux Ui Designer Explanation Type Date Recorded 0 Advance Directives 08/08/2013 8:00 AM and Living Will Power of Surveillance Observer 08/08/2013 8:00 AM
--- OUTSIDE RECORDS SUMMARY | 2019-12-13 15:33 | XMS REPORT | Summary of Care ---
Author Author [facility] - Health Organization [facility] - Health Address Unknown Phone Unavailable Care Team Providers Care Bilingual Counter Sales Retail Name Role Phone Ovidio Clarke MD PCP Reason for Visit * Reason Comments Referral/consult tonsil * (Routine) Referred By Contact Referred To Contact Status Reason Specialty Diagnoses / Procedures Omar Clay, DO [address] [place] [address] Closed Otolaryngology Diagnoses Ankylosing spondylitis of multiple sites in spine P rocedures CONSULT/REFERRAL ENT Encounter Details Care Team Description Date Type Department Susan Naylor PA-C [address] [facility] [address] [place] [address] Tonsillar hypertrophy (Primary Dx); Adenoid hypertrophy; Tobacco use disorder; Nasal turbinate hypertrophy; Cryptic tonsil; Fransisco's edema of vocal folds 08/28/2019 Office Visit [facility]- [address] [place] [address] Allergies Comments Active Allergy Reactions Severity Noted Date Aspirin Hives 03/21/2012 Sulfa (Sulfonamide Hives 11/29/2005 Antibiotics) documented as of this encounter (statuses as of 08/28/2019) Medications End Date Status Medication Sig Dispensed [...] 400 mg tablet 3 tabs three 0 12/12 /201 times a week 9 Active cyclobenzaprine 5 [...] involving unspecified site, unspecified rheumatoid factor presence Active methotrexate 2.5 mg Take by mouth 60 tablet 0 08/09 tabletIndications: TAKE 5 0 Ankylosing spondylitis of TABLETS BY multiple sites in spine MOUTH 1 TIME WEEKLY documented as of this encounter (statuses as of 08/28/2019) Active Problems Problem Noted Date Essential hypertension 03/19/2019 Carpal tunnel syndrome on right 03/19/2019 Overview: EMG 02/18/2019 Special screening for malignant neoplasms, colon Overview: Added automatically from request for jimmy solorio [id number] Cervical spondylosis with radiculopathy 01/01/2019 Overview: Added automatically from request for jimmy solorio [id number] Mixed hyperlipidemia 08/13/2018 Overview: LDL 140 07/17/2018 Left tennis elbow 06/17/2018 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 Overview: R Avulsion fracture of lateral epicondyle of humerus 0 11/14/2017 Painful patella, unspecified laterality 11/05/2017 S/P revision of total hip 09/18/2017 Colon cancer screening 05/24/2017 Overview: Added automatically from request for jimmy solorio [id number] Hematemesis with nausea 05/24/2017 Overview: Added automatically from request for jimmy solorio [id number] Nausea and vomiting, intractability of vomiting not s pecified, unspecified 05/24/2017 vomiting type Overview: Added automatically from request for jimmy solorio [id number] ANJELICA (obstructive sleep apnea) 05/10/2017 Obesity (BMI 30-39.9) 05/01/2017 Microhematuria 02/14/2017 Complex tear of medial meniscus of right knee as curr ent injury, initial 01/18/2017 encounter Overview: Added automatically from request for jimmy solorio [id number] Elevated MCV 07/25/2016 Overview: 103.4 07/22/2016 Muscle [...] on chest xray at [facility] 05/22/2015 Hiatus hernia syndrome 04/09/2015 Overview: EGD 03/23/2015 [facility] screening mammogram 01/06/2015 Immunization deficiency [...] lower leg 11/25/2013 Overview: ICD10 Diagnosis Term Clinical Resource Manager Utility Knee crepitus 11/25/2013 Genu valgum, acquired 11/25/2013 Overview: ICD10 Diagnosis Term Clinical Resource Manager Utility Patellofemoral misalignment with pain 11/25/2013 [...] 11/16/2010 Headache 04/08/2010 Overview: ICD10 Diagnosis Term Clinical Resource Manager Utility Nonerosive nonspecific gastritis 04/08/2010 Overview: EGD Dr. Lloyd Glossitis 02/23/2010 Tobacco use disorder 02/23/2010 Menorrhagia 05/19/2009 Vision blurred 05/19/2009 Acute upper respiratory infection 08/14/2008 Overview: ICD10 Diagnosis Term Clinical Resource Manager Utility Acute pharyngitis 08/14/2008 Screening for malignant neoplasm of cervix Overview: ICD10 Diagnosis Term Clinical Resource Manager Utility Breast screening 07/16/2008 Overview: ICD10 Diagnosis Term Clinical Resource Manager Utility Urinary tract infection, site not specified 04/29/20 08 Backache 06/02/2007 Overview: Lower back pain ICD10 Diagnosis Term Clinical Resource Manager Utility Pain in joint 06/02/2007 Overview: ICD10 Diagnosis Term Clinical Resource Manager Utility Cervicalgia 06/02/2007 Myalgia and myositis 06/02/2007 Overview: Bilateral trapezius pain ICD10 Diagnosis Term Clinical Resource Manager Utility Absence of menstruation 04/25/2007 Anemia 03/25/2007 Overview: ICD10 Diagnosis Term Clinical Resource Manager Utility Helicobacter pylori infection 06/11/2006 Overview: ICD10 Diagnosis Term Clinical Resource Manager Utility Acute peptic ulcer 06/11/2006 Overview: ICD10 Diagnosis Term Clinical Resource Manager Utility Abdominal pain 04/25/2006 Overview: ICD10 Diagnosis Term Clinical Resource Manager Utility Ankylosing spondylitis 04/25/2006 Vaginitis and vulvovaginitis 04/25/2006 Overview: ICD10 Diagnosis Term Clinical Resource Manager Utility Other, mixed, or unspecified nondependent drug abuse, continuous 11/30/2005 documented as of this encounter (statuses as of 08/28/2019) Resolved Problems Problem Noted Date Resolved Date Arm laceration, right, subsequent encounter 04/13/2014 04/13/2014 Syncope and collapse 02/27/2007 06/28/2014 Bipolar I disorder, most recent episode (or current) unspec ified 01/03/2007 01/23/2018 Overview: Dr. 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 11/30/2005 02/11/2018 Overview: ICD10 Diagnosis Term Clinical Resource Manager Utility documented as of this encounter (statuses as of 08/28/2019) Immunizations Name Administration Dates Next Due Hepatitis [...] - - Blood Pressure - - Pulse 36.7 C (98 F) 08/28/2019 1:55 PM POWER REACTOR OPERATOR Temperature - - Respiratory Rate - - Oxygen Saturation - - Inhaled Oxygen Concentration 88 kg (194 lb 1.6 oz) 08/28/2019 1:55 PM POWER REACTOR OPERATOR Weight 165.1 cm (5' 5") 08/28/2019 1:55 PM POWER REACTOR OPERATOR Height 32.3 08/28/2019 1:55 PM POWER REACTOR OPERATOR Body Mass Index documented in this encounter Progress Notes * Susan Naylor PA-C - 08/28/2019 2:00 PM POWER REACTOR OPERATOR Otolaryngology Follow Up Clinic Visit Name: Juan Tinoco Date: 08/28/2019 14:50 Chief Complaint: Tonsil enlargement History of Present Illness: Juan Tinoco is a 53 year old female with hx of HLD, bipolar schizoaffective disorder, and Ankylosing Spondylitis(treated with biologics) presenting at the [facility] for evaluation of large tonsils and adenoid tissue seen on MRI cervical spine in May 2019. She was previously evaluated by Dr. Greta albert in 10/2018 for prominent waldeyer's ring and lymphatic tissue on MRI brain . Today, she states she is doing well. No changes since her ROSIE with Dr. Pratima doshi. Denies fevers, chills, night sweats and weight loss, pain, dysphagia, odyno phagia, food getting stuck in his throat, voice changes, spitting or coughing bl ood, new neck masses. She currently smokes 1 ppd for 20 years. No hx of tonsil s tones. No other ENT concerns. Past Medical Hx: Past Medical History: Diagnosis Date Abdominal pain [...] legs 11/16/2010 Vision blurred 05/19/2009 Past Surgical Hx: Past Surgical History: Procedure Laterality Date ABDOMINAL HYSTERECTOMY 11/15/2009 Dr. Ro ARTHROSCOPIC FOREIGN BODY REMOVAL (SHX) Right 01/06/2014 Surgeon: Girish Fountain MD; Location: [facility] OR LOCATION ARTHROSCOPIC MENISCAL REPAIR Right 01/06/2014 Surgeon: Girish Fountain MD; Location: [facility] OR LOCATION CERVICAL EPIDURAL STEROID INJECTION 03/26/2012 Surgeon: Maged Franklin MD PHD; Location: [facility] OR LOCATION CERVICAL EPIDURAL STEROID INJECTION N/A 01/23/2019 Surgeon: Sebastian Doe; Location: [facility] OR Location COLONOSCOPY N/A 06/22/2015 Surgeon: Arian To MD; Location: [facility] OR LOCATION COLONOSCOPY N/A 02/17/2019 Surgeon: Ricco Hannah DO; Location: [facility] OR Location EGD (ENDO) 03/23/2015 [facility] [place] ESOPHAGOGASTRODUODENOSCOPY 04/13 ulcers ESOPHAGOGASTRODUODENOSCOPY 06/15 ESOPHAGOGASTRODUODENOSCOPY 10/07/2009 mild nonerosive gastritis ESOPHAGOGASTRODUODENOSCOPY N/A 06/22/2015 Surgeon: Arian To MD; Location: [facility] OR LOCATION ESOPHAGOGASTRODUODENOSCOPY N/A 02/17/2019 Surgeon: Ricco Hannah DO; Location: [facility] OR Location FLEXIBLE BRONCHOSCOPY 05/24/2015 Magui Hogan HIP HEMIARTHROPLASTY 2000 Right KNEE ARTHROSCOPY Right 01/06/2014 Surgeon: Girish Fountain MD; Location: [facility] OR LOCATION OPEN CARPAL TUNNEL RELEASE Right 07/15/2019 Surgeon: Zia Resendez MD; Location: [facility] OR Location IL ARTHRS KNE SURG W/MENISCECTOMY MED/LAT W/SHVG 01/06/2014 [place] KNEE SCOPE,REMV LOOSE BODY 01/06/2014 TOTAL HIP ARTHROPLASTY REVISION Right 09/18/2017 Surgeon: Sebastian Bunn MD; Location: [facility] Location TUBAL LIGATION 1987 Social History: Social History Tobacco Use Smoking status: Current Every Day Smoker Packs/day: 0.50 Years: 10.00 Pack years: 5.00 Types: Cigarettes Smokeless tobacco: Never Used Tobacco comment: advsied to speak w/ MD re rx and programs Substance Use Topics Alcohol use: Yes Comment: occ Drug use: No Allergies: Aspirin and Sulfa (sulfonamide antibiotics) Medications: Current Outpatient Medications Medication Sig methotrexate 2.5 mg tablet Take by mouth TAKE 5 TABLETS BY MOUTH 1 TIME WEEK LY foLIC acid 1 mg tablet Take 2 tablets by mouth daily. Diclofenac Sodium 1 % gel Apply 2 g to neck qid ergocalciferol, vitamin d2, 1,250 mcg (50,000 unit) capsule Take 1 capsule b y mouth weekly for 8 doses. metoclopramide HCl 10 mg tablet Take 1 tablet by mouth every 6 (six) hours a s needed for Nausea and Vomiting (N/V) (headache) for up to 15 doses. zolpidem (AMBIEN) 10 mg tablet Take 1 tablet by mouth at bedtime as needed f or Insomnia. LORazepam 1 mg tablet Take one tablet by mouth daily as needed for anxiety cyclobenzaprine 5 mg tablet TAKE 1 TABLET BY MOUTH THREE TIMES DAILY esomeprazole (NEXIUM) 40 mg capsule Take 1 capsule by mouth daily with break fast. TAKE ONE CAPSULE BY MOUTH EVERY MORNING WITH BREAKFAST ethambutol 400 mg tablet 3 tabs three times a week rifAMPin 300 mg capsule 2 tabs 3 x weekly buPROPion XL 150 mg 24 hr tablet TK 1 T PO D paliperidone 6 mg 24 hour tablet TK 1 T PO D ziprasidone 20 mg capsule Take 1 capsule by mouth 2 (two) times daily with m eals. metroNIDAZOLE 500 mg tablet TK 1 T PO BID X 7 DAYS CYCLOBENZAPRINE 5 mg tablet TAKE 1 TABLET BY MOUTH THREE TIMES DAILY Polyethylene Glycol 3350 (MIRALAX) 17 gram powder Take 1 Packet by mouth estrella ry 4 (four) hours as needed for Constipation for up to 12 doses. hydroCHLOROthiazide 25 mg tablet Take 1 tablet by mouth daily. Miconazole-Skin Clnsr17 (MONISTAT 7 CREAM, APPL, WIPES) 2 % (100 mg)- 2 % Ki t Use as directed ondansetron 4 mg disintegrating tablet DISSOLVE ONE TAB IN MOUTH EVERY 8 MACKENZIE RS NEEDED FOR NAUSEA FOR UP TO 30 DAYS gabapentin 600 mg tablet Take 1 tablet by mouth 3 (three) times daily. miconazole (MICONAZOLE 7) 2 % vaginal cream Insert 1 Applicator into vagina at bedtime. azithromycin 250 mg tablet Take 250 mg by mouth. VENTOLIN HFA 90 mcg/actuation inhaler INHALE 2 PUFFS Q 4 H PRF WHEEZING OR B REATHLESSNESS Review of Systems Positive issues in the Review of Systems will be BOLD Constitutional: fevers, chills, sweats, fatigue, weight loss, change in appetit e Eyes: vision changes, diplopia, eye pain Ears: hearing loss, otalgia, otorrhea, tinnitus, vertigo Nose: nasal congestion, rhinorrhea, epistaxis, change in sense of smell Throat: sore throat, hoarseness, dysphagia, odynophagia, tonsil enlargement Cardiovascular: chest pain, palpitations, dyspnea on exertion Respiratory: cough, wheeze, shortness of breath; hx asthma or COPD Gastrointestinal: nausea, vomiting, diarrhea, abdominal pain Integumentary: skin infection, rashes or skin changes Neurologic: seizures, headaches, weakness Physical Exam: Temp 36.7 C (98 F) (Tympanic) | Ht 5' 5" (1.651 m) | Wt 194 lb 1.6 oz (88 kg) | LMP 11/08/2009 | BMI 32.30 kg/m GENERAL: WDWN in NAD. Deep voice with hoarseness. No dyspnea or stridor. HEAD/FACE: Normocephalic, atraumatic. Facial nerve intact and bilaterally symmet eunice. Submandibular and parotid glands non-tender and without masses. EYES: EOMI; normal gaze alignment EARS: Auricles normal. Canals clear. TMs intact with normal mobility bilaterally . Middle ear clear bilaterally. NOSE: no gross external nasal deformity; nasal mucosa normal; septum deviated le ft; inferior turbinates moderately hypertrophied. No polyps, purulence, or mass . OC/OP: No trismus; oral mucosa is wnl, no mass or lesion; good dentition; normal tongue mobility; 2+ cryptic symmetric tonsils, no erythema or exudate, soft and non-TTP; uvula midline with retraction upon elevation of soft palate; palate in tact and elevates symmetrically NECK: Neck is supple; trachea midline; no obvious goiter or thyroid nodules appr eciated LYMPH: Unable to appreciate gross cervical lymphadenopathy NEUROLOGICAL: Cranial nerves II-XII grossly intact. RESPIRATORY: Breathing is unlabored and symmetric. Procedure Flexible laryngoscopy: Images uploaded to [employer] stream Verbal consent obtained. The nose was anesthetized with Afrin/lidocaine and scop e was passed. Nose- Normal nasal mucosa, turbinates decongested well, no septal spurs, left se ptal deviation. Nasopharynx- Normal eustachian tubes and fossa of Rosenmueller. Mild non-obstruc ting adenoid hypertrophy without ulceration, bleeding, or exudate. Oropharynx- No masses or lesions of BOT, tonsils or vallecula Supraglottis/Hypopharynx- Epiglottis normal, No masses or lesions. Normal AE fo lds and pyriform sinuses. Arytenoids mildly-edematous and erythematous. Mild pos t-cricoid fullness with pachydermia. FVC's normal. Glottis- No lesions on the TVC's. TVC's equally mobile with phonation with mild Fransisco's edema bilaterally. No masses or lesions. Immediate subglottic airway pa tent. Patient tolerated procedure well without complications Medical Data Comprehensive chart review performed Exam: MR CERVICAL SPINE WO CONTRAST on 05/23/19 Prominent posterior nasopharyngeal wall and palatine tonsils, atypical for patient age. IMPRESSION Multilevel spondylosis and spondyloarthropathy most pronounced at C4-C5 and C5-C6 resulting in mild spinal canal stenosis. Moderate right C5-C6 and neural foraminal narrowing. No abnormal cervical cord signal. Prominent posterior nasopharyngeal wall and palatine tonsils suggestive of adenoidal hypertrophy, atypical for patient age. Further ENT evaluation is Recommended. Diagnoses: ICD-10-CM ICD-9-CM 1. Tonsillar hypertrophy J35.1 474.11 2. Adenoid hypertrophy J35.2 474.12 3. Tobacco use disorder F17.200 305.1 4. Nasal turbinate hypertrophy J34.3 478.0 5. Cryptic tonsil J35.8 474.8 6. Fransisco's edema of vocal folds J38.1 478.4 Assessment/Plan: Juan Tinoco is a 53 year old female with hx of HLD, bipolar schizoaffective disorder, and Ankylosing Spondylitis(treated with biologics) presenting for eval uation of large tonsils and adenoid tissue seen on MRI cervical spine in May. She was previously evaluated by Dr. Coyle in 10/2018 for prominent waldey er's ring and lymphatic tissue on MRI brain. On exam today, she was noted to hav e benign appearing, symmetric, cryptic tonsils. On evaluation with flexible bri ngoscope, she was noted to have mild adenoid hypertrophy with benign features as well as mild interarytenoid edema and pachydermia with Fransisco's edema of bilate ral TVCs consistent with irritation from tobacco use. No further workup needed a t this time. - Strongly recommended smoking cessation - The patient was counseled regarding warning signs such as dysphagia, odynophag ia, increased dyspnea, new masses or lumps in the neck, weight loss, otalgia, am karen others. The patient verbalized full understanding and agreed to contact our office ALE[facility] should any of these signs occur. - RTC PRN with any further concerns I discussed at length the exam findings, diagnoses, and treatment options with t he patient. Questions have been answered to satisfaction. Susan Naylor PA-C [facility] Department of Otolaryngology R REACTOR OPERATOR documented in this encounter Plan of Treatment Care Team Description Date Type Specialty Self, MD Augustin [address] [place] [address] Day Ndiaye MD [address] [place] [phone] 09/01/2019 Office Visit Psychiatry Jennifer Eldridge Adult Infusion Nurse 09/04/2019 Nurse Visit [place] [address] [place] [phone] 09/18/2019 Office Visit Family Medicine Koki Gardnerseema, DIRECTOR HR COMMUNICATIONS [address] [place] [address] [phone] 09/23/2019 Office Visit Orthopedic Surgery Sebastian Doe MD [id number] [place] [address] [phone] 10/28/2019 Office Visit Pain Medicine Omar Clay, DO [address] [place], [place] [id number] 11/18/2019 Office Visit Rheumatology Health Maintenance Due [...] Donal Uhr Bipolar BIPOLAR Right: Hip Donal [id number] - S0 head Implanted: Qty: 1 on 09/18/2017 by Sebastian Bunn MD at [facility] 07/07/2021 1023-12 / [id number] / [id number] Cancellous Cubes, Community Tissue BONE Right: Hip Counts Include [address] [facility] Services Freeze Dried 30 Cc Tissue #1023-12 - [id number] Services Implanted: Qty: 1 on 09/18/2017 by Sebastian Bunn MD at [facility] 03/08/20182017-40 / [id number] / [id number] Dbm Putty Maxxeus 10cc Cts #2017-40 BONE Right: Hip Counts Include [address] [facility] - [id number] Tissue Implanted: Qty: 1 on 09/18/2017 by Services Sebastian Bunn MD at [facility] 04/07/2022 1365-28-720 / 0 / [id number] Delta Ceramic Femoral Head 28mm +5 Head Right: Hip Depuy 06/21 Taper Depuy Ref#[id number] Synthes Implanted: Qty: 1 on 09/18/2017 by Sebastian Bunn MD at [facility] 03/29/2022 [id number] / 0 / [id number] Insert, Hayden Trident 0deg 44mm Liner Right: Hip Hayden #[id number] Implanted: Qty: 1 on 09/18/2017 by Sebastian Bunn MD at [facility] 04/24/2022 5260-5-050 / 0 / [id number] Screw Osteolock 3.[address] SCREW Right: Hip Donal Cancellous 50mm Hayden Ref#[id number] Implanted: Qty: 2 on 09/18/2017 by Sebastian Bunn MD at [facility] 06/01/2022 5260-5-020 / 0 / [id number] Screw Ostelock 3.[address] SCREW Right: Hip Hayden Cancellous 20mm Donal Ref#[id number] Implanted: Qty: 1 on 09/18/2017 by Sebastian Bunn MD at [facility] 06/01/2022 5260-5-016 / 0 / [id number] Screw Osteolock 3.[address] SCREW Right: Hip Hayden Cancellous 18mm Hayden Ref#[id number] Implanted: Qty: 1 on 09/18/2017 by Sebastian Bunn MD at [facility] 01/02/2022 [id number] / 0 / [id number] Shell, Donal Tritanium Revision Shell Right: Hip Donal Acetabular #[id number] - S0 Implanted: Qty: 1 on 09/18/2017 by Sebastian Bunn MD at [facility] documented as of this encounter Procedures Comments Procedure Name Priority Date/Time Associated Diag nosis FLEXIBLE SCOPE ENT Routine 08/28/2019 Adenoid hyp ertrophy documented in this encounter Results * FLEXIBLE SCOPE ENT (08/28/2019) Narrative Performed At Please see endoscopic findings from clinic note from 08/28/2019. [facility] Performing Organization Address City/State/Zipcode Ph one Number [facility] documented in this encounter Visit Diagnoses Diagnosis Tonsillar hypertrophy - Primary Hypertrophy of tonsils alone Adenoid hypertrophy Hypertrophy of adenoids alone Tobacco use disorder Nasal turbinate hypertrophy Hypertrophy of nasal turbinates Cryptic tonsil Other chronic disease of tonsils and ad enoids Fransisco's edema of vocal folds documented in this encounter Insurance Type Payer Benefit Subscriber ID Effective Phone Address Plan / Dates Group Medicare Adv O [facility] [id number] 2018- MANAGED MEDICARE HEALTHCARE Present DUAL COMPLETE HMO Medicaid [facility] MEDICAID xxxxxxxxx 2019-P [phone] [address] [place] [facility] [id number] [place] [phone] documented as of this encounter Advance Directives 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
--- OUTSIDE RECORDS SUMMARY | 2019-12-13 15:33 | XMS REPORT | Summary of Care ---
Author Author [facility] - Health Organization [facility] - Health Address Unknown Phone Unavailable Care Team Providers Care Historiography Teacher Name Role Phone Ovidio Clarke MD PCP Reason for Visit * Reason Comments Referral/consult tonsil * (Routine) Referred By Contact Referred To Contact Status Reason Specialty Diagnoses / Procedures Omar Clay, DO [address] [place] [address] Closed Otolaryngology Diagnoses Ankylosing spondylitis of multiple sites in spine P rocedures CONSULT/REFERRAL ENT Encounter Details Care Team Description Date Type Department Susan Naylor PA-C [address] [place] [address] Tonsillar hypertrophy (Primary Dx); Adenoid hypertrophy; Tobacco use disorder; Nasal turbinate hypertrophy; Cryptic tonsil; Farnsisco's edema of vocal folds 08/28/2019 Office Visit [facility]- [address] [place] [address] Allergies Comments Active Allergy Reactions [...] Added automatically from request for jimmy solorio [id number] Cervical spondylosis with radiculopathy 01/01/2019 Overview: Added automatically from request for jimmy solorio [id number] Mixed hyperlipidemia 08/13/2018 Overview: LDL 140 07/17/2018 Left tennis elbow 06/17/2018 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 Overview: R Avulsion fracture of lateral epicondyle of humerus 0 11/14/2017 Painful patella, unspecified laterality 11/05/2017 S/P revision of total hip 09/18/2017 Colon cancer screening 05/24/2017 Overview: Added automatically from request for jimmy solorio [id number] Hematemesis with nausea 05/24/2017 Overview: Added automatically from request for jimmy solorio [id number] Nausea and vomiting, intractability of vomiting not s pecified, unspecified 05/24/2017 vomiting type Overview: Added automatically from request for jimmy solorio [id number] ANJELICA (obstructive sleep apnea) 05/10/2017 Obesity (BMI 30-39.9) 05/01/2017 Microhematuria 02/14/2017 Complex tear of medial meniscus of right knee as curr ent injury, initial 01/18/2017 encounter Overview: Added automatically from request for jimmy solorio [id number] Elevated MCV 07/25/2016 Overview: 103.4 07/22/2016 Muscle [...] nodular opacitiy on chest xray at [facility] 05/22/2015 Hiatus hernia syndrome 04/09/2015 Overview: EGD 03/23/2015 [facility] screening mammogram 01/06/2015 [...] lower leg 11/25/2013 Overview: ICD10 Diagnosis Term Supply And Distribution Manager Utility Knee crepitus 11/25/2013 Genu valgum, acquired 11/25/2013 Overview: ICD10 Diagnosis Term Supply And Distribution Manager Utility Patellofemoral misalignment with pain 11/25/2013 [...] 11/16/2010 Headache 04/08/2010 Overview: ICD10 Diagnosis Term Supply And Distribution Manager Utility Nonerosive nonspecific gastritis 04/08/2010 Overview: EGD Dr. Lloyd Glossitis 02/23/2010 Tobacco use disorder 02/23/2010 Menorrhagia 05/19/2009 Vision blurred 05/19/2009 Acute upper respiratory infection 08/14/2008 Overview: ICD10 Diagnosis Term Supply And Distribution Manager Utility Acute pharyngitis 08/14/2008 Screening for malignant neoplasm of cervix Overview: ICD10 Diagnosis Term Supply And Distribution Manager Utility Breast screening 07/16/2008 Overview: ICD10 Diagnosis Term Supply And Distribution Manager Utility Urinary tract infection, site not specified 04/29/20 08 Backache 06/02/2007 Overview: Lower back pain ICD10 Diagnosis Term Supply And Distribution Manager Utility Pain in joint 06/02/2007 Overview: ICD10 Diagnosis Term Supply And Distribution Manager Utility Cervicalgia 06/02/2007 Myalgia and myositis 06/02/2007 Overview: Bilateral trapezius pain ICD10 Diagnosis Term Supply And Distribution Manager Utility Absence of menstruation 04/25/2007 Anemia 03/25/2007 Overview: ICD10 Diagnosis Term Supply And Distribution Manager Utility Helicobacter pylori infection 06/11/2006 Overview: ICD10 Diagnosis Term Supply And Distribution Manager Utility Acute peptic ulcer 06/11/2006 Overview: ICD10 Diagnosis Term Supply And Distribution Manager Utility Abdominal pain 04/25/2006 Overview: ICD10 Diagnosis Term Supply And Distribution Manager Utility Ankylosing spondylitis 04/25/2006 Vaginitis and vulvovaginitis 04/25/2006 Overview: ICD10 Diagnosis Term Supply And Distribution Manager Utility Other, mixed, or unspecified nondependent [...] eatures 11/30/2005 02/11/2018 Overview: ICD10 Diagnosis Term Supply And Distribution Manager Utility documented as of this encounter [...] 36.7 C (98 F) 08/28/2019 1:55 PM LIGHTING SPECIALIST Temperature - - Respiratory Rate - - Oxygen Saturation - - Inhaled Oxygen Concentration 88 kg (194 lb 1.6 oz) 08/28/2019 1:55 PM LIGHTING SPECIALIST Weight 165.1 cm (5' 5") 08/28/2019 1:55 PM LIGHTING SPECIALIST Height 32.3 08/28/2019 1:55 PM LIGHTING SPECIALIST Body Mass Index documented in this encounter Progress Notes * Susan Naylor PA-C - 08/28/2019 2:00 PM LIGHTING SPECIALIST Otolaryngology Follow Up Clinic Visit Name: Juan Tinoco Date: 08/28/2019 14:50 Chief Complaint: Tonsil enlargement History of Present Illness: Juan Tinoco is a 53 year old female with hx of HLD, bipolar schizoaffective disorder, and Ankylosing Spondylitis(treated with biologics) presenting at the [facility] for evaluation of large tonsils and [...] Right 01/06/2014 Surgeon: Girish Fountain MD; Location: [facility] OR LOCATION ARTHROSCOPIC MENISCAL REPAIR Right 01/06/2014 Surgeon: Girish Fountain MD; Location: [facility] LOCATION CERVICAL EPIDURAL STEROID INJECTION 03/26/2012 Surgeon: Maged Franklin MD PHD; Location: [facility] OR LOCATION CERVICAL EPIDURAL STEROID INJECTION N/A 01/23/2019 Surgeon: Sebastian Doe; Location: [facility] Location COLONOSCOPY N/A 06/22/2015 Surgeon: Arian To MD; Location: [facility] LOCATION COLONOSCOPY N/A 02/17/2019 Surgeon: Ricco Hannah DO; Location: [facility] Location EGD (ENDO) 03/23/2015 [facility] ESOPHAGOGASTRODUODENOSCOPY 04/13 ulcers ESOPHAGOGASTRODUODENOSCOPY 06/15 ESOPHAGOGASTRODUODENOSCOPY 10/07/2009 mild nonerosive gastritis ESOPHAGOGASTRODUODENOSCOPY N/A 06/22/2015 Surgeon: Arian To MD; Location: [facility] ESOPHAGOGASTRODUODENOSCOPY N/A 02/17/2019 Surgeon: Ricco Hannah DO; Location: [place] OR Location FLEXIBLE BRONCHOSCOPY 05/24/2015 Magui Hogan HIP HEMIARTHROPLASTY 2000 Right KNEE ARTHROSCOPY Right 01/06/2014 Surgeon: Girish Fountain MD; Location: [facility] OR LOCATION OPEN CARPAL TUNNEL RELEASE Right 07/15/2019 Surgeon: Zia Resendez MD; Location: [facility] OR Location [place] ARTHRS KNE SURG W/MENISCECTOMY [...] symmetric. Procedure Flexible laryngoscopy: Images uploaded to [employer] stream Verbal consent obtained. The nose was [...] been answered to satisfaction. Susan Naylor PA-C [facility] Department of Otolaryngology TING SPECIALIST documented in this encounter Plan of Treatment Care Team Description Date Type Specialty Self, MD Augustin [address] [place] [address] Day Ndiaye MD [address] [place] [phone] 09/01/2019 Office Visit Psychiatry Jennifer Eldridge Adult Infusion Nurse 09/04/2019 Nurse Visit [place] [address] [place] [phone] 09/18/2019 Office Visit Family Medicine Koki Gardnerseema, SNAP SHEARER [address] [place] [address] [phone] 09/23/2019 Office Visit Orthopedic Surgery Sebastian Doe MD [id number] [place] [address] [phone] 10/28/2019 Office Visit Pain Medicine Omar Clay, DO [address] [place], [place] [address] 11/18/2019 Office Visit Rheumatology Health Maintenance Due [...] Donal Uhr Bipolar BIPOLAR Right: Hip Donal 14u89pi #Uh1-44-28 - S0 head Implanted: Qty: 1 on 09/18/2017 by Sebastian Bunn MD at [facility] 07/07/2021 1023-12 / [id number] / [id number] Cancellous Cubes, Community Tissue BONE Right: Hip [facility] Services Freeze Dried 30 Cc Tissue #1023-12 - [id number] Services Implanted: Qty: 1 on 09/18/2017 by Sebastian Bunn MD at [facility] 03/08/20182017-40 / [id number] / [id number] Dbm Putty Maxxeus 10cc Cts #2017-40 BONE Right: Hip [facility] - [id number] Tissue Implanted: Qty: 1 on 09/18/2017 by Services Sebastian Bunn MD at [facility] 04/07/2022 1365-28-720 / 0 / [id number] Delta Ceramic Femoral Head 28mm +5 Head Right: Hip Depuy 06/21 Taper Depuy Ref#[id number] Synthes Implanted: Qty: 1 on 09/18/2017 by Sebastian Bunn MD at [facility] 03/29/2022 623-00-44F / 0 / [id number] Insert, [place] Trident 0deg 44mm Liner Right: Hip [place] #623-00-44f Implanted: Qty: 1 on 09/18/2017 by Sebastian Bunn MD at [facility] 04/24/2022 5260-5-050 / 0 / [id number] Screw Osteolock [address] SCREW Right: Hip Donal Cancellous 50mm [place] Ref#[id number] Implanted: Qty: 2 on 09/18/2017 by Sebastian Bunn MD at [facility] 06/01/2022 5260-5-020 / 0 / [id number] Screw Ostelock 3.[address] SCREW Right: Hip [place] Cancellous 20mm Donal Ref#[id number] Implanted: Qty: 1 on 09/18/2017 by Sebastian Bunn MD at [facility] 06/01/2022 5260-5-016 / 0 / [id number] Screw Osteolock 3.[address] SCREW Right: Hip [place] Cancellous 18mm [place] Ref#[id number] Implanted: Qty: 1 on 09/18/2017 by Sebastian Bunn MD at [facility] 01/02/2022 509-02-60F / 0 / [id number] Shell, Donal Tritanium Revision Shell Right: Hip Donal Acetabular #509-02-60f - S0 Implanted: Qty: 1 on 09/18/2017 by Sebastian Bunn MD at [facility] documented as of this encounter Procedures [...] Plan / Dates Group Medicare Adv [facility] [id number] 2018- MANAGED MEDICARE HEALTHCARE Present DUAL COMPLETE HMO Medicaid [facility] MEDICAID xxxxxxxxx 2019-P [phone] P [address] BOX OF [place] [facility] [id number] [place] [phone] documented as of this encounter Advance Directives Patient Stitch Burnisher Explanation Type Date Recorded 0 Advance Directives 08/08/2013 8:00 AM and Living Will Power of Miter Operator 08/08/2013 8:00 AM
--- OUTSIDE RECORDS SUMMARY | 2019-12-13 15:33 | XMS REPORT | Summary of Care ---
Author Author [facility] - Health Organization [facility] - Health Address Unknown Phone Unavailable Care Team Providers Care Business Asst Name Role Phone Ovidio Clarke MD PCP Reason for Referral * (Routine) Referred By Contact Referred To Contact Status Reason Specialty Diagnoses / Procedures Omar Clay, DO [address] [place] [phone] New Request Infusion Therapy Diagnoses Rheumatoid arthritis, involving unspecified site, unspecified rheumatoid factor presence P rocedures CONSULT/REFERRAL AMB INFUSION THERAPY Preferred location: [place] ([facility] 3rd Floor) Reason for Visit * Reason Comments New Medication Encounter Details Care Team Description Date Type Department Omar Clay, [address] [place] [address] [phone] New Medication 08/23/2019 Telephone [facility] [address] [place] [phone] Allergies Comments Active Allergy Reactions Severity Noted Date Aspirin Hives 03/21/2012 Sulfa (Sulfonamide Hives 11/29/2005 Antibiotics) documented as of this encounter (statuses as of 08/23/2019) Medications End Date Status Medication Sig Dispensed [...] tablet One daily 90 tablet 3 8 documented as of this encounter (statuses as of 08/23/2019) Active Problems Problem Noted Date Essential hypertension 03/19/2019 Carpal tunnel syndrome on right 03/19/2019 Overview: EMG 02/18/2019 Special screening for malignant neoplasms, colon Overview: Added automatically from request for jimmy solorio [id number] Cervical spondylosis with radiculopathy 01/01/2019 Overview: Added automatically from request for jimmy solorio [id number] Mixed hyperlipidemia 08/13/2018 Overview: LDL 140 07/17/2018 Left tennis elbow 06/17/2018 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 Overview: R Avulsion fracture of lateral epicondyle of humerus 0 11/14/2017 Painful patella, unspecified laterality 11/05/2017 S/P revision of total hip 09/18/2017 Colon cancer screening 05/24/2017 Overview: Added automatically from request for jimmy solorio [id number] Hematemesis with nausea 05/24/2017 Overview: Added automatically from request for jimmy solorio [id number] Nausea and vomiting, intractability of vomiting not s pecified, unspecified 05/24/2017 vomiting type Overview: Added automatically from request for jimmy solorio [id number] ANJELICA (obstructive sleep apnea) 05/10/2017 Obesity (BMI 30-39.9) 05/01/2017 Microhematuria 02/14/2017 Complex tear of medial meniscus of right knee as curr ent injury, initial 01/18/2017 encounter Overview: Added automatically from request for jimmy solorio [id number] Elevated MCV 07/25/2016 Overview: 103.4 07/22/2016 Muscle [...] lobe nodular opacitiy on chest xray at [facility] 05/22/2015 Hiatus hernia syndrome 04/09/2015 Overview: [...] lower leg 11/25/2013 Overview: ICD10 Diagnosis Term Regulatory Affairs Consultant Utility Knee crepitus 11/25/2013 Genu valgum, acquired 11/25/2013 Overview: ICD10 Diagnosis Term Regulatory Affairs Consultant Utility Patellofemoral misalignment with pain 11/25/2013 Primary [...] 11/16/2010 Headache 04/08/2010 Overview: ICD10 Diagnosis Term Regulatory Affairs Consultant Utility Nonerosive nonspecific gastritis 04/08/2010 Overview: EGD Dr. Lloyd Glossitis 02/23/2010 Tobacco use disorder 02/23/2010 Menorrhagia 05/19/2009 Vision blurred 05/19/2009 Acute upper respiratory infection 08/14/2008 Overview: ICD10 Diagnosis Term Regulatory Affairs Consultant Utility Acute pharyngitis 08/14/2008 Screening for malignant neoplasm of cervix Overview: ICD10 Diagnosis Term Regulatory Affairs Consultant Utility Breast screening 07/16/2008 Overview: ICD10 Diagnosis Term Regulatory Affairs Consultant Utility Urinary tract infection, site not specified 04/29/20 08 Backache 06/02/2007 Overview: Lower back pain ICD10 Diagnosis Term Regulatory Affairs Consultant Utility Pain in joint 06/02/2007 Overview: ICD10 Diagnosis Term Regulatory Affairs Consultant Utility Cervicalgia 06/02/2007 Myalgia and myositis 06/02/2007 Overview: Bilateral trapezius pain ICD10 Diagnosis Term Regulatory Affairs Consultant Utility Absence of menstruation 04/25/2007 Anemia 03/25/2007 Overview: ICD10 Diagnosis Term Regulatory Affairs Consultant Utility Helicobacter pylori infection 06/11/2006 Overview: ICD10 Diagnosis Term Regulatory Affairs Consultant Utility Acute peptic ulcer 06/11/2006 Overview: ICD10 Diagnosis Term Regulatory Affairs Consultant Utility Abdominal pain 04/25/2006 Overview: ICD10 Diagnosis Term Regulatory Affairs Consultant Utility Ankylosing spondylitis 04/25/2006 Vaginitis and vulvovaginitis 04/25/2006 Overview: ICD10 Diagnosis Term Regulatory Affairs Consultant Utility Other, mixed, or unspecified nondependent drug abuse, continuous 11/30/2005 documented as of this encounter (statuses as of 08/23/2019) Resolved Problems Problem Noted Date Resolved Date Arm laceration, right, subsequent encounter 04/13/2014 04/13/2014 Syncope and collapse 02/27/2007 06/28/2014 Bipolar I disorder, most recent episode (or current) unspec ified 01/03/2007 01/23/2018 Overview: Dr. 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 11/30/2005 02/11/2018 Overview: ICD10 Diagnosis Term Regulatory Affairs Consultant Utility documented as of this encounter (statuses as of 08/23/2019) Immunizations Name Administration Dates Next Due Hepatitis [...] Date Type Specialty Susan Naylor PA-C [address] [place] [address] [phone] 08/28/2019 Office Visit Otolaryngology Day Ndiaye MD [address] [place] [address]. [place] [address] 09/01/2019 Office [place] [address] [place] [address] 09/18/2019 Office Visit Family Medicine Jay-Giuliano Goodson, APPLE SOLUTIONS CONSULTANT [address] [place], [place] [phone] 09/23/2019 Office Visit Orthopedic Surgery Sebastian Doe MD [address] [facility] [address] [place], [place] [address] 10/28/2019 Office Visit Pain Medicine Omar Clay, DO [address] [place] [address] [phone] 11/18/2019 Office Visit Rheumatology Health Maintenance Due [...] Head, Donal Uhr Bipolar BIPOLAR Right: Hip [place] 48g42sh #Uh1-44-28 - S0 head Implanted: Qty: 1 on 09/18/2017 by Sebastian Bunn MD at [facility] 07/07/2021 1023-12 / [id number] / [id number] Cancellous Cubes, Community Tissue BONE Right: Hip [facility] Freeze Dried 30 Cc Tissue #1023-12 - [id number] Services Implanted: Qty: 1 on 09/18/2017 by Sebastian Bunn MD at [facility] 03/08/20182017-40 / [id number] / [id number] Dbm Putty Maxxeus 10cc Cts #2017-40 BONE Right: Hip [facility] - [id number] Tissue Implanted: Qty: 1 on 09/18/2017 by Services Sebastian Bunn MD at [facility] 04/07/2022 1365-28-720 / 0 / [id number] Delta Ceramic Femoral Head 28mm +5 Head Right: Hip Depuy 06/21 Taper Depuy Ref#[id number] Synthes Implanted: Qty: 1 on 09/18/2017 by Sebastian Bunn MD at [facility] 03/29/2022 623-00-44F / 0 / [id number] Insert, [place] Trident 0deg 44mm Liner Right: Hip Donal #623-00-44f Implanted: Qty: 1 on 09/18/2017 by Sebastian Bunn MD at [facility] 04/24/2022 5260-5-050 / 0 / [id number] Screw Osteolock 3.[address] SCREW Right: Hip Donal Cancellous 50mm Donal Ref#[id number] Implanted: Qty: 2 on 09/18/2017 by Sebastian Bunn MD at [facility] 06/01/2022 5260-5-020 / 0 / [id number] Screw Ostelock 3.[address] SCREW Right: Hip Donal Cancellous 20mm Donal Ref#5260-5-020 Implanted: Qty: 1 on 09/18/2017 by Sebastian Bunn MD at [facility] 06/01/2022 5260-5-016 / 0 / [id number] Screw Osteolock 3.[address] SCREW Right: Hip Donal Cancellous 18mm [place] Ref#5260-5-016 Implanted: Qty: 1 on 09/18/2017 by Sebastian Bunn MD at [facility] 01/02/2022 509-02-60F / 0 / [id number] Shell, [place] Tritanium Revision Shell Right: Hip Donal Acetabular #509-02-60f - S0 Implanted: Qty: 1 on 09/18/2017 by Sebastian Bunn MD at [facility] documented as of this encounter Results Not on filedocumented in this encounter Visit Diagnoses Diagnosis Rheumatoid arthritis, involving unspeci fied site, unspecified rheumatoid factor presence - Primary documented in this encounter Insurance Type Payer Benefit Subscriber ID Effective Phone Address Plan / Dates Group Medicare Adv HMO [employer] [facility] [place] [id number] 2018- MANAGED MEDICARE HEALTHCARE Present DUAL COMPLETE HMO [facility] [id number] 2018- P O BOX SOLUTIONS H Present [address] [place] [address] Medicaid [place] MED[place] xxxxxxxxx 2019-P [phone] [address] [place] [id number] [place] [address] documented as of this encounter Advance Directives Patient High Value Associate Explanation Type Date Recorded 0 Advance Directives 08/08/2013 8:00 AM and Living Will Power of Sand Conditioner Machine 08/08/2013 8:00 AM
--- OUTSIDE RECORDS SUMMARY | 2019-12-13 15:33 | XMS REPORT | Summary of Care ---
Author Author [facility] - Health Organization [facility] - Health Address Unknown Phone Unavailable Care Team Providers Care School Bus Monitor Name Role Phone Ovidio Clarke MD PCP Reason for Referral * (Routine) Referred By Contact Referred To Contact Status Reason Specialty Diagnoses / Procedures Omar Clay, [address] [place] [id number] Authorized Infusion Therapy Diagnoses Rheumatoid arthritis, involving unspecified site, unspecified rheumatoid factor presence P rocedures CONSULT/REFERRAL AMB INFUSION THERAPY Preferred location: [place] ([facility] 3rd Floor) Reason for Visit * Reason Comments New Medication Encounter Details Care Team Description Date Type Department Omar Clay DO [address] [place] [address] [id number] New Medication 08/23/2019 Telephone [facility] [address] [place] [phone] Allergies Comments Active Allergy Reactions Severity [...] Added automatically from request for jimmy solorio [id number] Cervical spondylosis with radiculopathy 01/01/2019 Overview: Added automatically from request for jimmy solorio [id number] Mixed hyperlipidemia 08/13/2018 Overview: LDL 140 07/17/2018 Left tennis elbow 06/17/2018 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 Overview: R Avulsion fracture of lateral epicondyle of humerus 0 11/14/2017 Painful patella, unspecified laterality 11/05/2017 S/P revision of total hip 09/18/2017 Colon cancer screening 05/24/2017 Overview: Added automatically from request for jimmy solorio [id number] Hematemesis with nausea 05/24/2017 Overview: Added automatically from request for jimmy solorio [id number] Nausea and vomiting, intractability of vomiting not s pecified, unspecified 05/24/2017 vomiting type Overview: Added automatically from request for jimmy solorio [id number] ANJELICA (obstructive sleep apnea) 05/10/2017 Obesity (BMI 30-39.9) 05/01/2017 Microhematuria 02/14/2017 Complex tear of medial meniscus of right knee as curr ent injury, initial 01/18/2017 encounter Overview: Added automatically from request for jimmy solorio [id number] Elevated MCV 07/25/2016 Overview: 103.4 07/22/2016 Muscle [...] lobe nodular opacitiy on chest xray at [facility] 05/22/2015 Hiatus hernia syndrome 04/09/2015 Overview: EGD [...] leg 11/25/2013 Overview: ICD10 Diagnosis Term Computer Systems Architect Utility Knee crepitus 11/25/2013 Genu valgum, acquired 11/25/2013 Overview: ICD10 Diagnosis Term Computer Systems Architect Utility Patellofemoral misalignment with pain 11/25/2013 Primary [...] Headache 04/08/2010 Overview: ICD10 Diagnosis Term Computer Systems Architect Utility Nonerosive nonspecific gastritis 04/08/2010 Overview: EGD Dr. Lloyd Glossitis 02/23/2010 Tobacco use disorder 02/23/2010 Menorrhagia 05/19/2009 Vision blurred 05/19/2009 Acute upper respiratory infection 08/14/2008 Overview: ICD10 Diagnosis Term Computer Systems Architect Utility Acute pharyngitis 08/14/2008 Screening for malignant neoplasm of cervix Overview: ICD10 Diagnosis Term Computer Systems Architect Utility Breast screening 07/16/2008 Overview: ICD10 Diagnosis Term Computer Systems Architect Utility Urinary tract infection, site not specified 04/29/20 08 Backache 06/02/2007 Overview: Lower back pain ICD10 Diagnosis Term Computer Systems Architect Utility Pain in joint 06/02/2007 Overview: ICD10 Diagnosis Term Computer Systems Architect Utility Cervicalgia 06/02/2007 Myalgia and myositis 06/02/2007 Overview: Bilateral trapezius pain ICD10 Diagnosis Term Computer Systems Architect Utility Absence of menstruation 04/25/2007 Anemia 03/25/2007 Overview: ICD10 Diagnosis Term Computer Systems Architect Utility Helicobacter pylori infection 06/11/2006 Overview: ICD10 Diagnosis Term Computer Systems Architect Utility Acute peptic ulcer 06/11/2006 Overview: ICD10 Diagnosis Term Computer Systems Architect Utility Abdominal pain 04/25/2006 Overview: ICD10 Diagnosis Term Computer Systems Architect Utility Ankylosing spondylitis 04/25/2006 Vaginitis and vulvovaginitis 04/25/2006 Overview: ICD10 Diagnosis Term Computer Systems Architect Utility Other, mixed, or unspecified nondependent drug [...] 11/30/2005 02/11/2018 Overview: ICD10 Diagnosis Term Computer Systems Architect Utility documented as of this encounter (statuses [...] Date Type Specialty Susan Naylor PA-C [address] [place] [address] [phone] 08/28/2019 Office Visit Otolaryngology Day Ndiaye MD [address] [place] [address]. [place] [address] 09/01/2019 Office [place] [address] [place] [address] 09/18/2019 Office Visit Family Medicine Giuliano Gardner, [employer] [address] [place], [place] [address] 09/23/2019 Office Visit Orthopedic Surgery Sebastian Doe MD [address] [facility] [address] [place], [place] [address] 10/28/2019 Office Visit Pain Medicine Omar Clay, DO [address] [place] [address] [phone] 11/18/2019 Office Visit Rheumatology Health Maintenance Due [...] Head, Donal Uhr Bipolar BIPOLAR Right: Hip [place] [id number] #Uh1-44-28 - S0 head Implanted: Qty: 1 on 09/18/2017 by Sebastian Bunn MD at [facility] 07/07/2021 1023-12 / [id number] / [id number] Cancellous Cubes, Community Tissue BONE Right: Hip [facility] Services Freeze Dried 30 Cc Tissue #1023-12 - [id number] Services Implanted: Qty: 1 on 09/18/2017 by Sebastian Bunn MD at [facility] 03/08/2018 2018-40 / [id number] / [id number] Dbm Putty Maxxeus 10cc Cts #2017-40 BONE Right: Hip [facility] - [id number] Tissue Implanted: Qty: 1 on 09/18/2017 by Services Sebastian Bunn MD at [facility] 04/07/2022 1365-28-720 / 0 / [id number] Delta Ceramic Femoral Head 28mm +5 Head Right: Hip Depuy 06/21 Taper Depuy Ref#[id number] Synthes Implanted: Qty: 1 on 09/18/2017 by Sebastian Bunn MD at [facility] 03/29/2022 623-00-44F / 0 / [id number] Insert, Donal Trident 0deg 44mm Liner Right: Hip [place] #[id number] Implanted: Qty: 1 on 09/18/2017 by Sebastian Bunn MD at [facility] 04/24/2022 5260-5-050 / 0 / [id number] Screw Osteolock [address] SCREW Right: Hip [place] Cancellous 50mm Donal Ref#[id number] Implanted: Qty: 2 on 09/18/2017 by Sebastian Bunn MD at [facility] 06/01/2022 5260-5-020 / 0 / [id number] Screw Ostelock 3.[address] SCREW Right: Hip Donal Cancellous 20mm [place] Ref#[id number] Implanted: Qty: 1 on 09/18/2017 by Sebastian Bunn MD at [facility] 06/01/2022 5260-5-016 / 0 / [id number] Screw Osteolock 3.[address] SCREW Right: Hip [place] Cancellous 18mm [place] Ref#[id number] Implanted: Qty: 1 on 09/18/2017 by Sebastian Bunn MD at [facility] 01/02/2022 509-02-60F / 0 / [id number] Shell, [place] Tritanium Revision Shell Right: Hip Donal Acetabular #509-02-60f - S0 Implanted: Qty: 1 on 09/18/2017 by Sebastian Bunn MD at [facility] documented as of this encounter Results Not on filedocumented in this encounter Visit Diagnoses Diagnosis Rheumatoid arthritis, involving unspeci fied site, unspecified rheumatoid factor presence - Primary documented in this encounter Insurance Type Payer Benefit Subscriber ID Effective Phone Address Plan / Dates Group Medicare Adv O [employer] [facility] [id number] 2018- MANAGED MEDICARE HEALTHCARE Present DUAL COMPLETE HMO [facility] [id number] 2018- P O BOX SOLUTIONS H Present [id number] [place] [address] Medicaid [facility] MEDICAID xxxxxxxxx 2019-P [phone] P [address] B[place] resent [id number] [place] [address] documented as of this encounter Advance Directives Patient Environmental Services Supervisor Explanation Type Date Recorded 0 Advance Directives 08/08/2013 8:00 AM and Living Will Power of Scruff Worker 08/08/2013 8:00 AM
--- OUTSIDE RECORDS SUMMARY | 2019-12-13 15:33 | XMS REPORT | Summary of Care ---
Author Author [facility] - Health Organization [facility] - Health Address Unknown Phone Unavailable Care Team Providers Care Inspector Air Carrier Name Role Phone Ovidio Clarke MD PCP Reason for Referral * (Routine) Referred By Contact Referred To Contact Status Reason Specialty Diagnoses / Procedures Giuliano Gardner, MAINTENANCE CUSTODIAN [address] [place] [address] Closed Occupational Diagnoses Therapy Carpal tunnel syndrome on right P rocedures CONSULT/REFERRAL OCCUPATIONAL THERAPY * Radiology Services (Routine) Referred By Contact Referred To Contact Status Reason Specialty Diagnoses / Procedures Giuliano Gardner, MAINTENANCE CUSTODIAN [address] [place] [address]339 New Request Diagnostic Diagnoses Radiology Postmenopausal bone loss P rocedures DEXA PERIPHERAL (FOREARM) * Radiology Services (Routine) Referred By Contact Referred To Contact Status Reason Specialty Diagnoses / Procedures Giuliano Gardner, MAINTENANCE CUSTODIAN [address] [place] [address] Authorized Diagnostic Diagnoses Radiology Postmenopausal bone loss P rocedures DEXA AXIAL (HIP AND SPINE) Reason for Visit * Reason Comments POST-OP hand * (Routine) Referred By Contact Referred To Contact Status Reason Specialty Diagnoses / Procedures Zia Resendez MD [id number] [place] [address] Closed ORT-ORTHOPAEDIC Diagnoses SURGERY / Carpal tunnel Orthopedic syndrome on right Surgery P rocedures Discharge Follow-Up: Specialty Service ORT-ORTHOPAEDIC SURGERY; 2 Weeks (10-14 days) Encounter Details Care Team Description Date Type Department Giuliano Gardner, ALVIN [address] [place] [address] [phone] Carpal tunnel syndrome on right (Primary Dx); Postmenopausal bone loss; Ankylosing spondylitis of multiple sites in spine 07/31/2019 Office Visit [facility] edic Surgery- 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 Overview: R Avulsion fracture of lateral epicondyle of humerus 0 11/14/2017 Painful patella, unspecified laterality 11/05/2017 S/P revision of total hip 09/18/2017 Colon cancer screening 05/24/2017 Overview: Added automatically from request for Fanbase [id number] Hematemesis with nausea 05/24/2017 Overview: Added automatically from request for Fanbase [id number] Nausea and vomiting, intractability of vomiting not s pecified, unspecified 05/24/2017 vomiting type Overview: Added automatically from request for Fanbase [id number] ANJELICA (obstructive sleep apnea) 05/10/2017 Obesity (BMI 30-39.9) 05/01/2017 Microhematuria 02/14/2017 Complex tear of medial meniscus of right knee as curr ent injury, initial 01/18/2017 encounter Overview: Added automatically from request for Fanbase [id number] Elevated MCV 07/25/2016 Overview: 103.4 07/22/2016 Muscle [...] lower leg 11/25/2013 Overview: ICD10 Diagnosis Term Tangible Personal Property Appraiser Utility Knee crepitus 11/25/2013 Genu valgum, acquired 11/25/2013 Overview: ICD10 Diagnosis Term Tangible Personal Property Appraiser Utility Patellofemoral misalignment with pain 11/25/2013 Primary [...] 11/16/2010 Headache 04/08/2010 Overview: ICD10 Diagnosis Term Tangible Personal Property Appraiser Utility Nonerosive nonspecific gastritis 04/08/2010 Overview: EGD Dr. Lloyd Glossitis 02/23/2010 Tobacco use disorder 02/23/2010 Menorrhagia 05/19/2009 Vision blurred 05/19/2009 Acute upper respiratory infection 08/14/2008 Overview: ICD10 Diagnosis Term Tangible Personal Property Appraiser Utility Acute pharyngitis 08/14/2008 Screening for malignant neoplasm of cervix 9 Overview: ICD10 Diagnosis Term Tangible Personal Property Appraiser Utility Breast screening 07/16/2008 Overview: ICD10 Diagnosis Term Tangible Personal Property Appraiser Utility Urinary tract infection, site not specified 04/29/20 08 Backache 06/02/2007 Overview: Lower back pain ICD10 Diagnosis Term Tangible Personal Property Appraiser Utility Pain in joint 06/02/2007 Overview: ICD10 Diagnosis Term Tangible Personal Property Appraiser Utility Cervicalgia 06/02/2007 Myalgia and myositis 06/02/2007 Overview: Bilateral trapezius pain ICD10 Diagnosis Term Tangible Personal Property Appraiser Utility Absence of menstruation 04/25/2007 Anemia 03/25/2007 Overview: ICD10 Diagnosis Term Tangible Personal Property Appraiser Utility Helicobacter pylori infection 06/11/2006 Overview: ICD10 Diagnosis Term Tangible Personal Property Appraiser Utility Acute peptic ulcer 06/11/2006 Overview: ICD10 Diagnosis Term Tangible Personal Property Appraiser Utility Abdominal pain 04/25/2006 Overview: ICD10 Diagnosis Term Tangible Personal Property Appraiser Utility Ankylosing spondylitis 04/25/2006 Vaginitis and vulvovaginitis 04/25/2006 Overview: ICD10 Diagnosis Term Tangible Personal Property Appraiser Utility Other, mixed, or unspecified nondependent drug [...] eatures 11/30/2005 02/11/2018 Overview: ICD10 Diagnosis Term Tangible Personal Property Appraiser Utility documented as of this encounter (statuses [...] Comments Vital Sign 103/62 07/31/2019 9:30 AM PROJECT DEVELOPMENT MANAGER Blood Pressure 104 07/31/2019 9:30 AM PROJECT DEVELOPMENT MANAGER Pulse 35.9 C (96.7 F) 07/31/2019 9:30 AM PROJECT DEVELOPMENT MANAGER Temperature - - Respiratory Rate - - Oxygen Saturation - - Inhaled Oxygen Concentration 87.2 kg (192 lb 4.8 oz) 07/31/2019 9:30 AM PROJECT DEVELOPMENT MANAGER Weight - - Height 32 07/29/2019 1:19 PM PROJECT DEVELOPMENT MANAGER Body Mass Index documented in this encounter Progress Notes * Giuliano Gardner, ALVIN - 07/31/2019 10:30 AM PROJECT DEVELOPMENT MANAGER Ortho Spine Clinic Note CC: neck pain HPI History of Present Illness: Juan Tinoco is a 53 year old female coming in [facility] with chief complaint of neck. This has [...] Right 01/06/2014 Surgeon: Girish Fountain MD; Location: [facility] OR LOCATION ARTHROSCOPIC MENISCAL REPAIR Right 01/06/2014 Surgeon: Girish Fountain MD; Location: [facility] OR LOCATION CERVICAL EPIDURAL STEROID INJECTION 03/26/2012 Surgeon: Maged Franklin MD PHD; Location: [facility] OR LOCATION CERVICAL EPIDURAL STEROID INJECTION N/A 01/23/2019 Surgeon: Sebastian Doe; Location: [facility] COLONOSCOPY N/A 06/22/2015 Surgeon: Arian To MD; Location: [facility] OR LOCATION COLONOSCOPY N/A 02/17/2019 Surgeon: Ricco Hannah DO; Location: [facility] Location EGD (ENDO) 03/23/2015 [facility] [place] ESOPHAGOGASTRODUODENOSCOPY 04/13 ulcers ESOPHAGOGASTRODUODENOSCOPY 06/15 ESOPHAGOGASTRODUODENOSCOPY 10/07/2009 mild nonerosive gastritis ESOPHAGOGASTRODUODENOSCOPY N/A 06/22/2015 Surgeon: Arian To MD; Location: [facility] OR LOCATION ESOPHAGOGASTRODUODENOSCOPY N/A 02/17/2019 Surgeon: Ricco Hannah DO; Location: [facility] Location FLEXIBLE BRONCHOSCOPY 05/24/2015 Magui Hogan HIP HEMIARTHROPLASTY 2001 Right KNEE ARTHROSCOPY Right 01/06/2014 Surgeon: Girish Fountain MD; Location: [facility] OR LOCATION OPEN CARPAL TUNNEL RELEASE Right 07/15/2019 Surgeon: Zia Resendez MD; Location: [facility] Location DE ARTHRS KNE SURG W/MENISCECTOMY MED/LAT W/SHVG 01/06/2014 DE KNEE SCOPE,REMV LOOSE BODY 01/06/2014 TOTAL HIP ARTHROPLASTY REVISION Right 09/18/2017 Surgeon: Sebastian Bunn MD; Location: [facility] OR [facility] TUBAL LIGATION 1988 ROS Constitutional: negative Eyes: [...] Description Date Type Specialty Giuliano Gardner FNP [address] [place] [address] [phone] 08/08/2019 Appointment Radiology 3, Jennifer Adult Infusion Nurse 08/15/2019 Nurse Visit [place] [address] [place] [phone] 09/18/2019 Office Visit Family Medicine Giuliano Gardner FNP [address] [place] [address] [phone] 09/23/2019 Office Visit Orthopedic Surgery Sebastian Doe MD [address] [place] [address] [phone] 10/28/2019 Office Visit Pain Medicine Order Schedule [...] UH1-44-28 / 0 / [id number] Bipolar Head, Burns Uhr Bipolar BIPOLAR Right: Hip Burns 58o34it #Uh1-44-28 - S0 head Implanted: Qty: 1 on 09/18/2017 by Sebastian Bunn MD at [facility] 07/07/2021 1023-12 / [id number] / [id number] Cancellous Cubes, Community Tissue BONE Right: Hip [facility] Services Freeze Dried 30 Cc Tissue #1023-12 - [id number] Services Implanted: Qty: 1 on 09/18/2017 by Sebastian Bunn MD at [facility] 03/08/2018 2018-40 / [id number] / [id number] Dbm Putty Maxxeus 10cc Cts #2017-40 BONE Right: Hip [facility] - [id number] Tissue Implanted: Qty: 1 on 09/18/2017 by Services Sebastian Bunn MD at [facility] 04/07/2022 1365-28-720 / 0 / [id number] Delta Ceramic Femoral Head 28mm +5 Head Right: Hip Depuy 06/21 Taper Depuy Ref#[id number] Synthes Implanted: Qty: 1 on 09/18/2017 by Sebastian Bunn MD at [facility] 03/29/2022 623-00-44F / 0 / [id number] Insert, Donal Trident 0deg 44mm Liner Right: Hip Donal #623-00-44f Implanted: Qty: 1 on 09/18/2017 by Sebastian Bunn MD at [facility] 04/24/2022 5260-5-050 / 0 / [id number] Screw Osteolock [address] SCREW Right: Hip Donal Cancellous 50mm Burns Ref#[id number] Implanted: Qty: 2 on 09/18/2017 by Sebastian Bunn MD at [facility] 06/01/2022 5260-5-020 / 0 / [id number] Screw Ostelock 3.[address] SCREW Right: Hip Donal Cancellous 20mm Donal Ref#[id number] Implanted: Qty: 1 on 09/18/2017 by Sebastian Bunn MD at [facility] 06/01/2022 5260-5-016 / 0 / [id number] Screw Osteolock 3.[address] SCREW Right: Hip Burns Cancellous 18mm Donal Ref#[id number] Implanted: Qty: 1 on 09/18/2017 by Sebastian Bunn MD at [facility] 01/02/2022 509-02-60F / 0 / [id number] Shell, Donal Tritanium Revision Shell Right: Hip Burns Acetabular #509-02-60f - S0 Implanted: Qty: 1 on 09/18/2017 by Sebastian Bunn MD at [facility] documented as of this encounter Procedures Comments Procedure Name Priority Date/Time Associated Diag nosis VITAMIN D, 25-OH Routine 07/31/2019 Postmenopausa l bone loss 10:15 AM PROJECT DEVELOPMENT MANAGER INTACT PTH CALCIUM GROUP Routine 07/31/2019 Postm enopausal bone loss 10:15 AM PROJECT DEVELOPMENT MANAGER VITAMIN B12, LEVEL Routine 07/31/2019 Postmenopau marjorie bone loss 10:15 AM PROJECT DEVELOPMENT MANAGER MAGNESIUM Routine 07/31/2019 Postmenopausal bone loss 10:15 AM PROJECT DEVELOPMENT MANAGER documented in this encounter Results * MAGNESIUM (07/31/2019 10:15 AM PROJECT DEVELOPMENT MANAGER) MAGNESIUM 2.1 1.7 - 2.4 mg/dL [facility] Y [facility] Specimen Blood Performing Organization Address City/State/Zipcode Ph one Number [facility] CLIA: [id number], [address] [place], [place] [address] SERVICES-[facility] * VITAMIN B12, LEVEL (07/31/2019 10:15 AM PROJECT DEVELOPMENT MANAGER) VIT B12 345 240 - 930 pg/mL [facility] Y SERVICES Specimen Blood Narrative Performed At Biotin has been reported to cause a pos itive bias, interpret results relative to [facility] patient's use of biotin. SERVICES Performing Organization Address City/State/[facility] Ph one Number [facility] CLIA: [id number], [address] [place] [address] [facility] * INTACT PTH CALCIUM GROUP (07/31/2019 10:15 AM PROJECT DEVELOPMENT MANAGER) CALCIUM 9.9 8.6 - 10.6 mg/dL [facility] PTH-INTACT 62.3 12.0 - 88.0 pg/mL [facility] PTH-CA Comment: PTH IS Appropriate [facility] Interpretation for Calcium SERVICES Specimen Blood Performing Organization Address City/State/[facility] Ph one Number [facility] CLIA: [id number], [address] [place] [address] [facility] * VITAMIN D, 25-OH (07/31/2019 10:15 AM PROJECT DEVELOPMENT MANAGER) VIT D 25OH 18 (L) 25 - 80 ng/mL [facility] SERVICES Specimen Blood Narrative Performed At Deficiency: <20 ng/mL [facility] Insufficiency: 20-24 ng/mL SERVICES Optimal: 25-80 ng/mL Performing Organization Address City/State/Zipcode Ph one Number [facility] CLIA: [id number], [address] [place] [address] [address] documented in this encounter Visit Diagnoses Diagnosis Carpal tunnel syndrome on right - Prima ry Carpal tunnel syndrome Postmenopausal bone loss Senile osteoporosis Ankylosing spondylitis of multiple site s in spine Ankylosing spondylitis documented in this encounter Insurance Type Payer Benefit Subscriber ID Effective Phone Address Plan / Dates Group Medicare Adv O [facility] [id number] 2018- MANAGED MEDICARE HEALTHCARE Present DUAL COMPLETE HMO Medicaid [facility] MEDICAID xxxxxxxxx 2019-P [phone] [address] documented as of this encounter Advance Directives Patient Top Coater Explanation Type Date Recorded 0 Advance Directives 08/08/2013 8:00 AM and Living Will Power of Hand Zipper Trimmer 08/08/2013 8:00 AM"
--- OUTSIDE RECORDS SUMMARY | 2019-12-13 15:33 | XMS REPORT | Summary of Care ---
Author Author [facility] - Health Organization [facility] - Health Address Unknown Phone Unavailable Care Team Providers Care [employer] Name Role Phone Ovidio Clarke MD PCP Reason for Visit * Reason Comments Refill Request Encounter Details Care Team Description Date Type Department Omar Clay, DO [address] [place] [address] [phone] Refill Request 08/24/2019 Refill [facility] [address], [address] [place] [address] Allergies Comments Active Allergy Reactions [...] sites in spine MOUTH 1 TIME WEEKLY 08/25/2019 Discontinued methotrexate 2.5 mg Take by [...] Added automatically from request for jimmy solorio [id number] Cervical spondylosis with radiculopathy 01/01/2019 Overview: Added automatically from request for jimmy solorio [id number] Mixed hyperlipidemia 08/13/2018 Overview: LDL 140 07/17/2018 Left tennis elbow 06/17/2018 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 Overview: R Avulsion fracture of lateral epicondyle of humerus 0 11/14/2017 Painful patella, unspecified laterality 11/05/2017 S/P revision of total hip 09/18/2017 Colon cancer screening 05/24/2017 Overview: Added automatically from request for jimmy solorio [id number] Hematemesis with nausea 05/24/2017 Overview: Added automatically from request for jimmy solorio [id number] Nausea and vomiting, intractability of vomiting not s pecified, unspecified 05/24/2017 vomiting type Overview: Added automatically from request for jimmy solorio [id number] ANJELICA (obstructive sleep apnea) 05/10/2017 Obesity (BMI 30-39.9) 05/01/2017 Microhematuria 02/14/2017 Complex tear of medial meniscus of right knee as curr ent injury, initial 01/18/2017 encounter Overview: Added automatically from request for jimmy solorio [id number] Elevated MCV 07/25/2016 Overview: 103.4 07/22/2016 Muscle [...] lobe nodular opacitiy on chest xray at [facility] 05/22/2015 Hiatus hernia syndrome 04/09/2015 Overview: EGD 03/23/2015 [facility] screening mammogram 01/06/2015 Immunization deficiency 10/09/2014 [...] lower leg 11/25/2013 Overview: ICD10 Diagnosis [employer] Knee crepitus 11/25/2013 Genu valgum, acquired 11/25/2013 Overview: ICD10 Diagnosis [employer] Patellofemoral misalignment with pain 11/25/2013 [...] 11/16/2010 Headache 04/08/2010 Overview: ICD10 Diagnosis [employer] Nonerosive nonspecific gastritis 04/08/2010 Overview: EGD Dr. Lloyd Glossitis 02/23/2010 Tobacco use disorder 02/23/2010 Menorrhagia 05/19/2009 Vision blurred 05/19/2009 Acute upper respiratory infection 08/14/2008 Overview: ICD10 Diagnosis [employer] [facility] [employer] Acute pharyngitis 08/14/2008 Screening for malignant neoplasm of cervix 9 Overview: ICD10 Diagnosis [employer] [facility] [employer] Breast screening 07/16/2008 Overview: ICD10 Diagnosis [employer] [facility] [employer] Urinary tract infection, site not specified 04/29/20 08 Backache 06/02/2007 Overview: Lower back pain ICD10 Diagnosis [employer] Pain in joint 06/02/2007 Overview: ICD10 Diagnosis [employer] Cervicalgia 06/02/2007 Myalgia and myositis 06/02/2007 Overview: Bilateral trapezius pain ICD10 Diagnosis [employer] Absence of menstruation 04/25/2007 Anemia 03/25/2007 Overview: ICD10 Diagnosis [employer] [facility] [employer] Helicobacter pylori infection 06/11/2006 Overview: ICD10 Diagnosis [facility] [employer] Acute peptic ulcer 06/11/2006 Overview: ICD10 Diagnosis [facility] [employer] Abdominal pain 04/25/2006 Overview: ICD10 Diagnosis [employer] [facility] [employer] Ankylosing spondylitis 04/25/2006 Vaginitis and vulvovaginitis 04/25/2006 Overview: ICD10 Diagnosis [employer] [facility] [employer] Other, mixed, or unspecified nondependent [...] eatures 11/30/2005 02/11/2018 Overview: ICD10 Diagnosis [facility] [employer] documented as of this encounter [...] Date Type Specialty Susan Naylor PA-C [address] [place] [address] [phone] 08/28/2019 Office Visit Otolaryngology Day Ndiaye MD [address] [facility] [place] [address] 09/01/2019 Office [place] [address] [place] [address] 09/18/2019 Office Visit Family Medicine Giuliano Gardner, STAFF FIELD ENGINEER [address] [place], [place] [id number] 09/23/2019 Office Visit Orthopedic Surgery Sebastian Doe MD [address] [facility] [address] [place], [place] [address] 10/28/2019 Office Visit Pain Medicine Omar Clay, DO [address] [place] [address] [phone] 11/18/2019 Office Visit Rheumatology Health Maintenance Due [...] Donal Uhr Bipolar BIPOLAR Right: Hip Donal 00m66ep #Uh1-44-28 - S0 head Implanted: Qty: 1 on 09/18/2017 by Sebastian Bunn MD at [facility] 07/07/2021 1023-12 / [id number] / [id number] Cancellous Cubes, Community Tissue BONE Right: Hip [facility] Freeze Dried 30 Cc Tissue #1023-12 - [id number] Services Implanted: Qty: 1 on 09/18/2017 by Sebastian Bunn MD at [facility] 03/08/2018 2018-40 / [id number] / [id number] Dbm Putty Maxxeus 10cc Cts #2018-40 BONE Right: Hip [facility] - [id number] Tissue Implanted: Qty: 1 on 09/18/2017 by Services Sebastian Bunn MD at [facility] 04/07/2022 1365-28-720 / 0 / [id number] Delta Ceramic Femoral Head 28mm +5 Head Right: Hip Depuy 06/21 Taper Depuy Ref#[id number] Synthes Implanted: Qty: 1 on 09/18/2017 by Sebastian Bunn MD at [facility] 03/29/2022 623-00-44F / 0 / [id number] Insert, Oneco Trident 0deg 44mm Liner Right: Hip Oneco #[id number] Implanted: Qty: 1 on 09/18/2017 by Sebastian Bunn MD at [facility] 04/24/2022 5260-5-050 / 0 / [id number] Screw Osteolock 3.[address] SCREW Right: Hip Donal Cancellous 50mm Oneco Ref#[id number] Implanted: Qty: 2 on 09/18/2017 by Sebastian Bunn MD at [facility] 06/01/2022 5260-5-020 / 0 / [id number] Screw Ostelock 3.[address] SCREW Right: Hip Oneco Cancellous 20mm Donal Ref#[id number] Implanted: Qty: 1 on 09/18/2017 by Sebastian Bunn MD at [facility] 06/01/2022 5260-5-016 / 0 / [id number] Screw Osteolock 3.[address] SCREW Right: Hip Donal Cancellous 18mm Donal Ref#[id number] Implanted: Qty: 1 on 09/18/2017 by Seabstian Bunn MD at [facility] 01/02/2022 509-02-60F / 0 / [id number] Shell, Donal Tritanium Revision Shell Right: Hip Oneco Acetabular #[id number] - S0 Implanted: Qty: 1 on 09/18/2017 by Sebastian Bunn MD at [facility] documented as of this encounter Results Not on filedocumented in this encounter Visit Diagnoses Diagnosis Ankylosing spondylitis of multiple site s in spine Ankylosing spondylitis documented in this encounter Insurance Type Payer Benefit Subscriber ID Effective Phone Address Plan / Dates Group Medicare Adv HMO [facility] [id number] 2018- MANAGED MEDICARE HEALTHCARE Present DUAL COMPLETE HMO [facility] [employer] [id number] 2018- [address] SOLUTIONS H Present [address] [place] [address] Medicaid [place] xxxxxxxxx 2019-P [phone] [address] [facility] [id number] [place] [address] documented as of this encounter Advance Directives Patient Fuel Quality Tech Explanation Type Date Recorded 0 Advance Directives 08/08/2013 8:00 AM and Living Will Power of Debate Director 08/08/2013 8:00 AM
--- OUTSIDE RECORDS SUMMARY | 2019-12-13 15:34 | XMS REPORT | Clinical Summary ---
Author Author [facility] - Health Organization [facility] - Health Address Unknown Phone Unavailable Care Team Providers Care Queen'S Counsel Name Role Phone Ovidio Clarke MD PCP [...] depressive type times daily with meals. Active rifAMPin 300 mg capsule 2 tabs [...] instability of right knee with pain Active foLIC acid 1 mg Take 2 180 tablet 3 tabletIndications: tablets by 0 Rheumatoid arthritis, mouth daily. involving unspecified site, unspecified rheumatoid factor presence Active methotrexate 2.5 mg Take by mouth 60 tablet 0 08/09 tabletIndications: TAKE 5 0 Ankylosing spondylitis of TABLETS BY multiple sites in spine MOUTH 1 TIME WEEKLY Active zolpidem (AMBIEN) 10 mg Take 1 tablet 30 tablet 2 tabletIndications: by mouth at 0 Insomnia, unspecified bedtime as type needed for Insomnia. Active Problems Problem Noted Date Essential hypertension 03/19/2019 Carpal tunnel syndrome on right 03/19/2019 Overview: EMG 02/18/2019 Special screening for malignant neoplasms, colon Overview: Added automatically from request for marquez 28msecmandy [id number] Cervical spondylosis with radiculopathy 01/01/2019 Overview: Added automatically from request for marquez 28msecmandy [id number] Mixed hyperlipidemia 08/13/2018 Overview: LDL 140 07/17/2018 Left tennis elbow 06/17/2018 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 Overview: R Avulsion fracture of lateral epicondyle of humerus 0 11/14/2017 Painful patella, unspecified laterality 11/05/2017 S/P revision of total hip 09/18/2017 Colon cancer screening 05/24/2017 Overview: Added automatically from request for jimmy solorio [id number] Hematemesis with nausea 05/24/2017 Overview: Added automatically from request for jimmy solorio [id number] Nausea and vomiting, intractability of vomiting not s pecified, unspecified 05/24/2017 vomiting type Overview: Added automatically from request for jimmy solorio [id number] ANJELICA (obstructive sleep apnea) 05/10/2017 Obesity (BMI 30-39.9) 05/01/2017 Microhematuria 02/14/2017 Complex tear of medial meniscus of right knee as curr ent injury, initial 01/18/2017 encounter Overview: Added automatically from request for jimmy solorio [id number] Elevated MCV 07/25/2016 Overview: 103.4 07/22/2016 Muscle [...] 04/09/2015 Overview: EGD 03/23/2015 [facility] screening mammogram 01/06/2015 Immunization [...] lower leg 11/25/2013 Overview: ICD10 Diagnosis Term Family Nurse Utility Knee crepitus 11/25/2013 Genu valgum, acquired 11/25/2013 Overview: ICD10 Diagnosis Term Family Nurse Utility Patellofemoral misalignment with pain 11/25/2013 Primary [...] 11/16/2010 Headache 04/08/2010 Overview: ICD10 Diagnosis Term Family Nurse Utility Nonerosive nonspecific gastritis 04/08/2010 Overview: EGD Dr. Lloyd Glossitis 02/23/2010 Tobacco use disorder 02/23/2010 Menorrhagia 05/19/2009 Vision blurred 05/19/2009 Acute upper respiratory infection 08/14/2008 Overview: ICD10 Diagnosis Term Family Nurse Utility Acute pharyngitis 08/14/2008 Screening for malignant neoplasm of cervix Overview: ICD10 Diagnosis Term Family Nurse Utility Breast screening 07/16/2008 Overview: ICD10 Diagnosis Term Family Nurse Utility Urinary tract infection, site not specified 04/29/20 08 Backache 06/02/2007 Overview: Lower back pain ICD10 Diagnosis Term Family Nurse Utility Pain in joint 06/02/2007 Overview: ICD10 Diagnosis Term Family Nurse Utility Cervicalgia 06/02/2007 Myalgia and myositis 06/02/2007 Overview: Bilateral trapezius pain ICD10 Diagnosis Term Family Nurse Utility Absence of menstruation 04/25/2007 Anemia 03/25/2007 Overview: ICD10 Diagnosis Term Family Nurse Utility Helicobacter pylori infection 06/11/2006 Overview: ICD10 Diagnosis Term Family Nurse Utility Acute peptic ulcer 06/11/2006 Overview: ICD10 Diagnosis Term Family Nurse Utility Abdominal pain 04/25/2006 Overview: ICD10 Diagnosis Term Family Nurse Utility Ankylosing spondylitis 04/25/2006 Vaginitis and vulvovaginitis 04/25/2006 Overview: ICD10 Diagnosis Term Family Nurse Utility Other, mixed, or unspecified nondependent drug abuse, continuous 11/30/2005 Resolved Problems Problem Noted Date Resolved Date Arm laceration, right, subsequent encounter 04/13/2014 04/13/2014 Syncope and collapse 02/27/2007 06/28/2014 Bipolar I disorder, most recent episode (or current) unspec ified 01/03/2007 01/23/2018 Overview: Dr. 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 11/30/2005 02/11/2018 Overview: ICD10 Diagnosis Term Family Nurse Utility Encounters Care Team Description Date Type Specialty Susan Naylor PA-C Tonsillar hypertrophy (Primary Dx); Adenoid hypertrophy; Tobacco use disorder; Nasal turbinate hypertrophy; Cryptic tonsil; Fransisco's edema of vocal folds 08/28/2019 Office Visit Otolaryngology Ovidio Clarke Jr., MD Rx Concern/Question 08/28/2019 Telephone Family [facility] Omar Clay DO Refill Request 08/24/2019 Refill Rheumatology Omar Clay, DO New Medication 08/23/2019 Telephone Rheumatology Omar Clay DO Talk To Nurse 08/20/2019 Telephone Rheumatology Omar Clay DO Pcp-Lab Ankylosing spondylitis of multiple sites in spine 08/19/2019 [facility] Phlebotomy Visit Omar Clay, Ankylosing spondylitis of multiple sites in spine (Primary Dx); Mycobacterium avium infection; Therapeutic drug monitoring; Anterior uveitis; Schizoaffective disorder, bipolar type 08/19/2019 Office Visit Rheumatology Omar Clay, Orders (updated infusion order needed fo r Remicade) 08/14/2019 Telephone Rheumatology Ovidio Clarke Jr., MD Refill Request 08/13/2019 Refill [facility] Omar Clay DO Refill Request 08/12/2019 Refill Rheumatology Giuliano Gardner FNP Vls-Lab Postmenopausal bone loss 07/31/2019 Dining [employer] Steward Phlebotomy Visit Giuliano Gardner FNP Carpal tunnel syndrome on right (Primary Dx); Postmenopausal bone loss; Ankylosing spondylitis of multiple sites in spine 07/31/2019 Office Visit Orthopedic Surgery Sebastian Doe MD Cervical spondylosis with radiculopathy (Primary Dx); Ankylosing spondylitis, unspecified site of spine; Carpal tunnel syndrome of right wrist; Chronic pain syndrome 07/29/2019 Office Visit Pain Medicine Doctor Unassigned, Volin 07/28/2019 Orders Only Robert Chandler MD Shabot, Sarah, MD 07/15/2019 Anesthesia Surgery Event Zia Resendez MD OPEN CARPAL TUNNEL RELEASE 07/15/2019 Surgery Surgery Zia Resendez MD 07/15/2019 Hospital Surgery Encounter Zia Resendez MD Appointment (2wk surgery F/U) 07/15/2019 Telephone Orthopedic Surgery Doctor Unassigned, Volin 07/15/2019 Orders Only Ovidio Clarke Jr., MD Rx Concern/Question 07/04/2019 Telephone Family Medicine Omar Clay DO 3, Jennifer Adult Infusion Nurse Ankylosing spondylitis, unspecified site of spine (Primary Dx) 06/20/2019 Nurse Visit Infusion Therapy Doctor Unassigned, Volin 06/20/2019 Orders Only Ovidio Clarke Jr., MD [...] complex 06/19/2019 Office Visit Family Medicine Daniela Stone RN 06/18/2019 Anesthesia Surgery Event Zia Resendez MD 06/18/2019 Hospital Surgery Encounter Zia Resendez MD Appointment (canceled surgery ) 06/18/2019 Telephone Orthopedic Surgery Doctor Unassigned, Volin 06/18/2019 Orders Only Zia Resendez MD Notification 06/11/2019 Telephone Orthopedic Surgery Ovidio Clarke Jr., MD Refill Request 06/06/2019 Refill Family Medicine Sebastian Doe MD Cervical spondylosis with radiculopathy (Primary Dx); Chronic pain syndrome; Carpal tunnel syndrome of right wrist; Ankylosing spondylitis, unspecified site of spine 06/04/2019 Office Visit Pain Medicine Doctor Unassigned, Volin 06/04/2019 Orders Only Zia Resendez MD Bilateral carpal tunnel syndrome (Primar y Dx) 06/03/2019 Office Visit Orthopedic Surgery Zia Resendez MD Appointment 06/03/2019 Telephone Orthopedic Surgery Omar Clay DO Refill Request 06/01/2019 Refill Rheumatology from Last 3 Months Immunizations Name Administration [...] Signs Reading Time Taken Comments Vital Sign 125/74 09/01/2019 8:32 AM [employer]PAREL PATTERN MAKER Blood Pressure 92 09/01/2019 8:32 AM [employer]PAREL PATTERN MAKER Pulse 36.7 C (98 F) 08/28/2019 1:55 PM [employer]EL PATTERN [employer]KER Temperature 18 09/01/2019 8:32 AM APPAREL PATTERN MAKER Respiratory Rate 98% 08/19/2019 2:00 PM [employer]EL PATTERN [employer]KER Oxygen Saturation - - Inhaled Oxygen Concentration 88.4 kg (194 lb 14.4 oz) 09/01/2019 8:32 AM APPAREL PATTERN MAKER Weight 165.1 cm (5' 5") 09/01/2019 8:32 AM [employer]EL PATTERN MAKER Height 32.43 09/01/2019 8:32 AM [employer]EL PATTERN MAKER Body Mass Index Plan of Treatment Care Team Description Date Type Specialty Omar Clay, [address] [place], [place] [id number] 3, Jennifer Adult Infusion Nurse 09/04/2019 Nurse Visit [place] [address] [place] [address] 09/18/2019 Office Visit Family Medicine Jay-Giuliano Goodson, PROBATE CLERK [address] [place] [address] [phone] 09/23/2019 Office Visit Orthopedic Surgery Sebastian Doe MD [id number] [place], [place] [address] 10/28/2019 Office Visit Pain Medicine Omar Clay, DO [address] [place] [address] [phone] 11/18/2019 Office Visit Rheumatology Health Maintenance Due [...] Head, Donal Uhr Bipolar BIPOLAR Right: Hip Concord [id number] #[id number] - S0 head Implanted: Qty: 1 on 09/18/2017 by Sebastian Bunn MD at [facility] 07/07/2021 1023-12 / [id number] / [id number] Cancellous Cubes, Community Tissue BONE Right: Hip [facility] Freeze Dried 30 Cc Tissue #1023-12 - [id number] Services Implanted: Qty: 1 on 09/18/2017 by Sebastian Bunn MD at [facility] 03/08/2018 2018-40 / [id number] / [id number] Dbm Putty Maxxeus 10cc Cts #2017-40 BONE Right: Hip [facility] [id number] Tissue Implanted: Qty: 1 on 09/18/2017 by Services Sebastian Bunn MD at [facility] 04/07/2022 1365-28-720 / 0 / [id number] Delta Ceramic Femoral Head 28mm +5 Head Right: Hip Depuy /14 Taper Depuy Ref#[id number] Synthes Implanted: Qty: 1 on 09/18/2017 by Sebastian Bunn MD at [facility] 03/29/2022 623-00-44F / 0 / [id number] Insert, Donal Trident 0deg 44mm Liner Right: Hip Concord #[id number] Implanted: Qty: 1 on 09/18/2017 by Sebastian Bunn MD at [facility] 04/24/2022 5260-5-050 / 0 / [id number] Screw Osteolock 3.[address] SCREW Right: Hip Concord Cancellous 50mm Concord Ref#[id number] Implanted: Qty: 2 on 09/18/2017 by Sebastian Bunn MD at [facility] 06/01/2022 5260-5-020 / 0 / [id number] Screw Ostelock 3.[address] SCREW Right: Hip Concord Cancellous 20mm Donal Ref#[id number] Implanted: Qty: 1 on 09/18/2017 by Sebastian Bunn MD at [facility] 06/01/2022 5260-5-016 / 0 / [id number] Screw Osteolock 3.[address] SCREW Right: Hip Donal Cancellous 18mm Concord Ref#[id number] Implanted: Qty: 1 on 09/18/2017 by Sebastian Bunn MD at [facility] 01/02/2022 [id number] / 0 / [id number] Shell, Concord Tritanium Revision Shell Right: Hip Donal Acetabular #[id number] - S0 Implanted: Qty: 1 on 09/18/2017 by Sebastian Bunn MD at [facility] Procedures Comments Procedure Name Priority Date/Time Associated Diag nosis FLEXIBLE SCOPE ENT Routine 08/28/2019 Adenoid hyp ertrophy CBC WITH DIFFERENTIAL Routine 08/19/2019 Ankylosi ng spondylitis of 2:54 PM [employer]EL PATTERN [employer]KER multiple sites in spine QUANTIFERON-TB ASSAY Routine 08/19/2019 Ankylosin g spondylitis of 2:54 PM [employer]EL PATTERN [employer]KER multiple sites in spine COMP. METABOLIC PANEL Routine 08/19/2019 Ankylosi ng spondylitis of (29417) 2:54 PM [employer]EL PATTERN MAKER multiple sites in s pine SEDIMENTATION RATE Routine 08/19/2019 Ankylosing spondylitis of 2:54 PM [employer]EL PATTERN [employer]KER multiple sites in spine CBC WITH DIFFERENTIAL Routine 08/19/2019 Ankylosi ng spondylitis of 2:54 PM [employer] PATTERN [employer]KER multiple sites in spine C-REACTIVE PROTEIN Routine 08/19/2019 Ankylosing spondylitis of 2:49 PM [employer] PATTERN [employer]KER multiple sites in spine MAGNESIUM Routine 07/31/2019 Postmenopausal bone loss 10:15 AM [employer]EL PATTERN MAKER VITAMIN B12, LEVEL Routine 07/31/2019 Postmenopau marjorie bone loss 10:15 AM [employer]PAREL PATTERN MAKER INTACT PTH CALCIUM GROUP Routine 07/31/2019 Postm enopausal bone loss 10:15 AM [employer]EL PATTERN MAKER VITAMIN D, 25-OH Routine 07/31/2019 Postmenopausa l bone loss 10:15 AM [employer]EL PATTERN MAKER PHYSICIAN CERTIFICATION Routine 07/29/2019 STATEMENT 12:01 AM [employer]EL PATTERN MAKER REFERRAL- Routine 07/28/2019 REQUEST/RESPONSE 12:01 AM APPAREL PATTERN MAKER INTUBATION Routine 07/15/2019 1:20 PM APPAREL PATTERN MAKER OPEN CARPAL TUNNEL Level 5 07/15/2019 Right carpa l tunnel RELEASE (greater 12:58 PM APPAREL PATTERN MAKER syndrome than 5 days) CONSENT/REFUSAL FOR Routine 07/15/2019 DIAGNOSIS AND TREATMENT 10:51 AM APPAREL PATTERN MAKER ASSIGNMENT OF BENEFITS Routine 07/15/2019 10:51 AM APPAREL PATTERN MAKER DAY SURGERY - VICTORY Routine 07/15/2019 LAKES 12:01 AM APPAREL PATTERN MAKER EXTERNAL PROVIDER RECORDS Routine 06/20/2019 12:01 AM APPAREL PATTERN MAKER FLU VACC ([id number]), 6+ Routine 06/19/2019 Influ tin vaccine needed MONTHS, IM, QUAD 11:21 AM [employer]PAREL PATTERN MAKER CONSENT/REFUSAL FOR Routine 06/18/2019 DIAGNOSIS AND TREATMENT 8:10 AM APPAREL PATTERN MAKER ASSIGNMENT OF BENEFITS Routine 06/18/2019 8:09 AM APPAREL PATTERN MAKER PATIENT QUESTIONNAIRE Routine 06/04/2019 12:01 AM APPAREL PATTERN MAKER from Last 3 Months Results * FLEXIBLE SCOPE ENT (08/28/2019) Specimen Narrative Performed At Please see endoscopic findings from clinic note from 08/28/2019. [facility] Performing Organization Address City/State/Zipcode Ph one Number [facility] * CBC WITH DIFFERENTIAL (08/19/2019 2:54 PM APPAREL PATTERN MAKER) WBC 6.41 4.30 - 11.10 [facility] 10*3/L SERVICES RBC 4.01 3.93 - 5.25 10*6/L [facility] HGB 13.6 11.6 - 15.0 g/dL [facility] HCT 41.8 35.7 - 45.2 % [facility] MCV 104.2 (H) 80.6 - 95.5 fL [facility] MCH 33.9 (H) 25.9 - 32.8 pg [facility] MCHC 32.5 31.6 - 35.1 g/dL [facility] RDW-SD 51.6 (H) 39.0 - 49.9 fL [facility] RDW-CV 13.4 12.0 - 15.5 % [facility] PLT 317 166 - 358 10*3/L [facility] MPV 10.3 9.5 - 12.9 fL [facility] NRBC/100 WBC 0.0 0.0 - 10.0 /100 WBCs [facility] NRBC x10^3 <0.01 10*3/L [facility] GRAN MAT (NEUT) 51.3 % [facility] % SERVICES IMM GRAN % 0.30 % [facility] LYMPH % 37.3 % [facility] MONO % 8.3 % [facility] EOS % 2.5 % [facility] BASO % 0.3 % [facility] GRAN MAT 3.29 1.88 - 7.09 10*3/uL [facility] x10^3(ANC) SERVICES IMM GRAN x10^3 <0.03 0.00 - 0.06 10*3/uL [facility] LYMPH x10^3 2.39 1.32 - 3.29 10*3/uL [facility] MONO x10^3 0.53 0.33 - 0.92 10*3/uL [facility] EOS x10^3 0.16 0.03 - 0.39 10*3/uL [facility] BASO x10^3 <0.03 0.01 - 0.07 10*3/uL [facility] Specimen Blood Performing Organization Address City/State/Zipcode Ph one Number [facility] CLIA: [id number], [address] [place] [address] [facility] * QUANTIFERON-TB ASSAY (08/19/2019 2:54 PM APPAREL PATTERN MAKER) Nil 0.018 IU/mL [facility] TB1 minus Nil 0.004 IU/mL [facility] TB2 minus Nil 0.005 IU/mL [facility] Mitogen minus >10.000 IU/mL [facility] Nil SERVICES QFT Gold Plus Negative Negative [facility] Result SERVICES Specimen Blood - VENOUS Narrative Performed At Test results are calculated in accordan ce with an FDA-approved algorithm run on [facility] QuantiFERON(R) software. SERVICES The QuantiFERON(R) TB Gold Plus (in Tub e) assay is intended for use as an aid in diagnosis of TB infection. Negative res ults suggest that there is not TB infection. In patients with high suspic ion of exposure, a negative test should be repeated. A positive test indicates infection with Mycobacterium tuberculosis. Among individuals without tuberculosis infection, a positive test may be due to exposure to M. kansasii, M. szulgai, or M. marinum. As with any screening test, positive results must b e interpreted with caution and in context with associated risk factors. Diagnosin g or excluding tuberculosis disease and assessing the probability of latent TB infection requires a combination of epidemiological, historical, medical an d diagnostic findings that should be taken into account when interpreting Qu antiFERON(R) TB results. For further information, refer to http: //www.cdc.gov/mmwr/pdf/rr/eo5339.pdf |Nil | TB1 minus | TB2 minus | Mi togen minus | Result | Interpretation |(IU/mL) | Nil(IU/mL)| Nil(IU/ml)| Nil( IU/mL) | | +--------+ + +----- +--------+ | | >=0.35 | | | | | <=8.0 | and >=25% | Any | Any | Pos | | of Nil | of Nil | | | | +--------+ + +----- +--------+ M.tuberculosis | | Any | >=0.35 | | | infection likely | <=8.0 | | and >=25% | Any | Pos | | | | of Nil | | | +--------+ + +----- +--------+ | | <0.35 | <0.35 | | | | <=8.0 | or >=0.35 | or >=0.35 | >=0.50 | Neg | M.tuberculosis | | and <25% | and <25% | | | infection NOT | | of Nil | of Nil | | | likely +--------+ + +----- +--------+ | | <0.35 | <0.35 | | | | <=8.0 | or >=0.35 | or >=0.35 | <0.50 | | | | and <25% | and <25% | | | Likelihood of | | of Nil | of Nil | | | M.tuberculosis +--------+ | IND* | infection cannot | | | | be determined. | >8.0 | Any | | + *Indeterminate Performing Organization Address City/State/Zipcode Ph one Number [facility] CLIA: [id number], [address] [place] [address] [facility] * SEDIMENTATION RATE (08/19/2019 2:54 PM APPAREL PATTERN MAKER) ESR 41 (H) 0 - 20 mm/HR [facility] SERVICES Specimen Blood Performing Organization Address City/State/Zipcode Ph one Number [facility] CLIA: [id number], [address] [place] [address] [facility] * COMP. METABOLIC PANEL (60015) (08/19/2019 2:54 PM [employer]PAREL PATTERN MAKER) NA 138 135 - 145 mmol/L [facility] K 4.3 3.5 - 5.0 mmol/L [facility] CL 100 98 - 108 mmol/L [facility] CO2 TOTAL 28 23 - 31 mmol/L [facility] AGAP 10 2 - 16 [facility] BUN 12 7 - 23 mg/dL [facility] GLUCOSE 97 70 - 110 mg/dL [facility] CREATININE 0.62 0.50 - 1.04 mg/dL [facility] TOTAL BILI 0.6 0.1 - 1.1 mg/dL [facility] CALCIUM 9.9 8.6 - 10.6 mg/dL [facility] T PROTEIN 8.0 6.3 - 8.2 g/dL [facility] ALBUMIN 4.4 3.5 - 5.0 g/dL [facility] ALK PHOS 97 34 - 122 U/L [facility] ALTv 10 5 - 35 U/L [facility] AST(SGOT) 22 13 - 40 U/L [facility] eGFR 100.3 mL/min/1.73m2 [facility] Calculation SERVICES (Non-) eGFR 121.6 mL/min/1.73m2 [facility] Calculation SERVICES () Specimen Blood Narrative Performed At Association of Glomerular Filtration Rate (GFR) and S taging of Kidney Disease* [facility] + + +------ + SERVICES | GFR (mL/min/1.73 m2) | With Kidney Damage | Without Kidney Damage + + -------+ + | >90 | [...] abnormalities in imaging tests). Performing Organization Address City/[facility] one Number [facility] CLIA: [id number], [address] [place] [address] [facility] * C-REACTIVE PROTEIN (08/19/2019 2:49 PM APPAREL PATTERN MAKER) CRP 1.8 (H) <0.8 mg/dL [facility] SERVICES Specimen Blood Performing Organization Address [facility] one Number [facility] CLIA: [id number], [address] [place] [address] [facility] * VITAMIN D, 25-OH (07/31/2019 10:15 AM APPAREL PATTERN MAKER) VIT D 25OH 18 (L) 25 - 80 ng/mL [facility] SERVICES Specimen Blood Narrative Performed At Deficiency: <20 ng/mL [facility] Insufficiency: 20-24 ng/mL SERVICES Optimal: 25-80 ng/mL Performing Organization Address [facility] one Number [facility] CLIA: [id number], [address] [place] [address] [facility] * INTACT PTH CALCIUM GROUP (07/31/2019 10:15 AM [employer]PAREL PATTERN MAKER) CALCIUM 9.9 8.6 - 10.6 mg/dL [facility] PTH-INTACT 62.3 12.0 - 88.0 pg/mL [facility] SERVICES PTH-CA Comment: PTH IS Appropriate [facility] Interpretation for Calcium SERVICES Specimen Blood Performing Organization Address [facility] one Number [facility] CLIA: [id number], [address] [place] [address] [facility] * VITAMIN B12, LEVEL (07/31/2019 10:15 AM APPAREL PATTERN MAKER) VIT B12 345 240 - 930 pg/mL [facility] SERVICES Specimen Blood Narrative Performed At Biotin has been reported to cause a pos itive bias, interpret results relative to [facility] patient's use of biotin. SERVICES Performing Organization Address [facility] Ph one Number [facility] CLIA: [id number], [address] [place] [address] [facility] * MAGNESIUM (07/31/2019 10:15 AM APPAREL PATTERN MAKER) MAGNESIUM 2.1 1.7 - 2.4 mg/dL [facility] Specimen Blood Performing Organization Address [facility] Ph one Number [facility] CLIA: [id number], [address] [place], [place] [address] [facility] * PHYSICIAN CERTIFICATION STATEMENT (07/29/2019 12:01 AM APPAREL PATTERN MAKER) Specimen Performing Organization [facility] one Number [facility] * REFERRAL- REQUEST/RESPONSE (07/28/2019 12:01 AM APPAREL PATTERN MAKER) Specimen Performing Organization [facility] one Number [facility] * Intubation (07/15/2019 1:20 PM APPAREL PATTERN MAKER) Narrative Performed At Diana Sorensen CRNA 07/15/2019 [...] FOR DIAGNOSIS AND TREATMENT (07/15/2019 10:51 AM APPAREL PATTERN MAKER) Only the most recent of 2 results within the time period is included. Specimen Performing Organization Address [facility] one Number [facility] * ASSIGNMENT OF BENEFITS (07/15/2019 10:51 AM APPAREL PATTERN MAKER) Only the most recent of 2 results within the time period is included. Specimen Performing Organization Address [facility] one Number [facility] * DAY SURGERY - HIMANSHU CATALAN (07/15/2019 12:01 AM APPAREL PATTERN MAKER) Specimen Performing Organization Address City/State/Zipcode Ph one Number [facility] * EXTERNAL PROVIDER RECORDS (06/20/2019 12:01 AM [employer]EL PATTERN MAKER) Specimen Performing Organization Address City/State/Zipcode Ph one Number [facility] * PATIENT QUESTIONNAIRE (06/04/2019 12:01 AM [employer]EL PATTERN MAKER) Specimen Performing Organization Address City/State/Zipcode Ph one Number [facility] from Last 3 Months Insurance Type Payer Benefit Subscriber ID Effective Phone Address Plan / Dates Group Medicare Adv HMO [employer] [facility] [id number] 2018- MANAGED MEDICARE HEALTHCARE Present DUAL COMPLETE HMO [facility] [id number] 2018- P O BOX SOLUTIONS H Present [address] [place] [address] Medicaid [place] MEDICAID xxxxxxxxx 2019-P [phone] P O BOX OF [place] [facility] [id number] [place] [address] amily (Home) [place] [address] [facility] 1965 [phone] [address] [address] Health (Home) [place] [address] Advance Directives Patient Multigrapher Explanation Type Date Recorded 0 Advance Directives 08/08/2013 8:00 AM and Living Will Power of Overhead Crane Operator 08/08/2013 8:00 AM
--- OUTSIDE RECORDS SUMMARY | 2019-12-13 15:34 | XMS REPORT | Clinical Summary ---
Author Author [facility] - Health Organization [facility] - Health Address Unknown Phone Unavailable Care Team Providers Care Head Banquet Waitress Name Role Phone Ovidio Clarke MD PCP [...] Added automatically from request for jimmy solorio [id number] Cervical spondylosis with radiculopathy 01/01/2019 Overview: Added automatically from request for jimmy solorio [id number] Mixed hyperlipidemia 08/13/2018 Overview: LDL 140 07/17/2018 Left tennis elbow 06/17/2018 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 Overview: R Avulsion fracture of lateral epicondyle of humerus 0 11/14/2017 Painful patella, unspecified laterality 11/05/2017 S/P revision of total hip 09/18/2017 Colon cancer screening 05/24/2017 Overview: Added automatically from request for jimmy solorio [id number] Hematemesis with nausea 05/24/2017 Overview: Added automatically from request for jimmy solorio [id number] Nausea and vomiting, intractability of vomiting not s pecified, unspecified 05/24/2017 vomiting type Overview: Added automatically from request for jimmy solorio [id number] ANJELICA (obstructive sleep apnea) 05/10/2017 Obesity (BMI 30-39.9) 05/01/2017 Microhematuria 02/14/2017 Complex tear of medial meniscus of right knee as curr ent injury, initial 01/18/2017 encounter Overview: Added automatically from request for jimmy solorio [id number] Elevated MCV 07/25/2016 Overview: 103.4 07/22/2016 Muscle [...] on chest xray at [facility] 05/22/2015 Hiatus hernia syndrome 04/09/2015 Overview: EGD [...] lower leg 11/25/2013 Overview: ICD10 Diagnosis Term Classroom Aide Utility Knee crepitus 11/25/2013 Genu valgum, acquired 11/25/2013 Overview: ICD10 Diagnosis Term Classroom Aide Utility Patellofemoral misalignment with pain 11/25/2013 [...] 11/16/2010 Headache 04/08/2010 Overview: ICD10 Diagnosis Term Classroom Aide Utility Nonerosive nonspecific gastritis 04/08/2010 Overview: EGD Dr. Lloyd Glossitis 02/23/2010 Tobacco use disorder 02/23/2010 Menorrhagia 05/19/2009 Vision blurred 05/19/2009 Acute upper respiratory infection 08/14/2008 Overview: ICD10 Diagnosis Term Classroom Aide Utility Acute pharyngitis 08/14/2008 Screening for malignant neoplasm of cervix Overview: ICD10 Diagnosis Term Classroom Aide Utility Breast screening 07/16/2008 Overview: ICD10 Diagnosis Term Classroom Aide Utility Urinary tract infection, site not specified 04/29/20 08 Backache 06/02/2007 Overview: Lower back pain ICD10 Diagnosis Term Classroom Aide Utility Pain in joint 06/02/2007 Overview: ICD10 Diagnosis Term Classroom Aide Utility Cervicalgia 06/02/2007 Myalgia and myositis 06/02/2007 Overview: Bilateral trapezius pain ICD10 Diagnosis Term Classroom Aide Utility Absence of menstruation 04/25/2007 Anemia 03/25/2007 Overview: ICD10 Diagnosis Term Classroom Aide Utility Helicobacter pylori infection 06/11/2006 Overview: ICD10 Diagnosis Term Classroom Aide Utility Acute peptic ulcer 06/11/2006 Overview: ICD10 Diagnosis Term Classroom Aide Utility Abdominal pain 04/25/2006 Overview: ICD10 Diagnosis Term Classroom Aide Utility Ankylosing spondylitis 04/25/2006 Vaginitis and vulvovaginitis 04/25/2006 Overview: ICD10 Diagnosis Term Classroom Aide Utility Other, mixed, or unspecified nondependent drug abuse, continuous 11/30/2005 Resolved Problems Problem Noted Date Resolved Date Arm laceration, right, subsequent encounter 04/13/2014 04/13/2014 Syncope and collapse 02/27/2007 06/28/2014 Bipolar I disorder, most recent episode (or current) unspec ified 01/03/2007 01/23/2018 Overview: Dr. 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 11/30/2005 02/11/2018 Overview: ICD10 Diagnosis Term Classroom Aide Utility Encounters Care Team Description Date Type Specialty Susan Naylor PA-C Tonsillar hypertrophy (Primary Dx); Adenoid hypertrophy; Tobacco use disorder; Nasal turbinate hypertrophy; Cryptic tonsil; Fransisco's edema of vocal folds 08/28/2019 Office Visit Otolaryngology Ovidio Clarke Jr., MD Rx Concern/Question 08/28/2019 Telephone Family Medicine Omar Clay DO Refill Request 08/24/2019 Refill Rheumatology Omar Clay DO New Medication 08/23/2019 Telephone Rheumatology Omar Clay DO Talk To Nurse 08/20/2019 Telephone Rheumatology Omar Clay DO Pcp-Lab Ankylosing spondylitis of multiple sites in spine 08/19/2019 Dynamometer Tester Phlebotomy Visit Omar Clay DO Ankylosing spondylitis of multiple sites in spine (Primary Dx); Mycobacterium avium infection; Therapeutic drug monitoring; Anterior uveitis; Schizoaffective disorder, bipolar type 08/19/2019 Office Visit Rheumatology Omar Clay DO Orders (updated infusion order needed fo r Remicade) 08/14/2019 Telephone Rheumatology Ovidio Clarke Jr., MD Refill Request 08/13/[address] [facility] Omar lCay DO Refill Request 08/12/2019 Refill Rheumatology Giuliano Gardner FNP Vls-Lab Postmenopausal bone loss 07/31/2019 Dynamometer Tester Phlebotomy Visit Giuliano Gardner FNP Carpal tunnel syndrome on right (Primary Dx); Postmenopausal bone loss; Ankylosing spondylitis of multiple sites in spine 07/31/2019 Office Visit Orthopedic Surgery Sebastian Doe MD Cervical spondylosis with radiculopathy (Primary Dx); Ankylosing spondylitis, unspecified site of spine; Carpal tunnel syndrome of right wrist; Chronic pain syndrome 07/29/2019 Office Visit Pain Medicine Doctor Unassigned, [place] 07/28/2019 Orders Only Robert Chandler MD Shabot, Sarah, MD 07/15/2019 Anesthesia Surgery Event Zia Resendez MD OPEN CARPAL TUNNEL RELEASE 07/15/2019 Surgery Surgery Zia Resendez MD 07/15/2019 Hospital Surgery Encounter Zia Resendez MD Appointment (2wk surgery F/U) 07/15/2019 Telephone Orthopedic Surgery Doctor Unassigned, [place] 07/15/2019 Orders Only Ovidio Clarke Jr., MD Rx Concern/Question 07/04/2019 Telephone Family Medicine Omar Clay DO 3, Jennifer Adult Infusion Nurse Ankylosing spondylitis, unspecified site of spine (Primary Dx) 06/20/2019 Nurse Visit Infusion Therapy Doctor Unassigned, [place] 06/20/2019 Orders Only Ovidio Clarke Jr., MD [...] ) 06/18/2019 Telephone Orthopedic Surgery Doctor Unassigned, [place] 06/18/2019 Orders Only Zia Resendez MD Notification 06/11/2019 Telephone Orthopedic Surgery Ovidio Clarke Jr., MD Refill Request 06/06/2019 Refill Family Medicine Sebastian Doe MD Cervical spondylosis with radiculopathy (Primary Dx); Chronic pain syndrome; Carpal tunnel syndrome of right wrist; Ankylosing spondylitis, unspecified site of spine 06/04/2019 Office Visit Pain Medicine Doctor Unassigned, [place] 06/04/2019 Orders Only Zia Resendez MD Bilateral [...] Comments Vital Sign 116/70 08/19/2019 2:00 PM WAXER Blood Pressure 98 08/19/2019 2:00 PM WAXER Pulse 36.7 C (98 F) 08/28/2019 1:55 PM WAXER Temperature 16 08/19/2019 2:00 PM WAXER Respiratory Rate 98% 08/19/2019 2:00 PM WAXER Oxygen Saturation - - Inhaled Oxygen Concentration 88 kg (194 lb 1.6 oz) 08/28/2019 1:55 PM WAXER Weight 165.1 cm (5' 5") 08/28/2019 1:55 PM WAXER Height 32.3 08/28/2019 1:55 PM WAXER Body Mass Index Plan of Treatment Care Team Description Date Type Specialty 3, Jennifer Adult Infusion Nurse 09/04/2019 Nurse Visit [place] [address] [place] [address] [phone] 09/18/2019 Office Visit Family Medicine Giuliano Gardner, HEAD PUMPER [address] [place] [address] [phone] 09/23/2019 Office Visit Orthopedic Surgery Sebastian Doe MD [id number] [place], [place] [address] 10/28/2019 Office Visit Pain Medicine Omar Clay, DO [address] [place] [address] [phone] 11/18/2019 Office Visit Rheumatology Health Maintenance Due [...] Tobacco No Ashely, (cigarettes, smokeless, etc) Use Odalysanthony Gauthier MA Implants Device Identifier Shelf Expiration Date Model / Serial / L ot Implanted Type Area Manufactur er 08/23/2022 UH1-44-28 / 0 / [id number] Bipolar Head, [place] Uhr Bipolar BIPOLAR Right: Hip Donal 92t02sd #Uh1-44-28 - S0 head Implanted: Qty: 1 on 09/18/2017 by Sebastian Bunn MD at [facility] 07/07/2021 1023-12 / [id number] / [id number] Cancellous Cubes, Community Tissue BONE Right: Hip [facility] Services Freeze Dried 30 Cc Tissue #1023-12 - [id number] Services Implanted: Qty: 1 on 09/18/2017 by Sebastian Bunn MD at [facility] 03/08/2018 2018-40 / [id number] / [id number] Dbm Putty Maxxeus 10cc Cts #2017-40 BONE Right: Hip [facility] [id number] Tissue Implanted: Qty: 1 on 09/18/2017 by Services Sebastian Bunn MD at [facility] 04/07/2022 1365-28-720 / 0 / [id number] Delta Ceramic Femoral Head 28mm +5 Head Right: Hip Depuy /14 Taper Depuy Ref#[id number] Synthes Implanted: Qty: 1 on 09/18/2017 by Sebastian Bunn MD at [facility] 03/29/2022 623-00-44F / 0 / [id number] Insert, Donal Trident 0deg 44mm Liner Right: Hip [place] #[id number] Implanted: Qty: 1 on 09/18/2017 by Sebastian Bunn MD at [facility] 04/24/2022 5260-5-050 / 0 / [id number] Screw Osteolock [address] SCREW Right: Hip Donal Cancellous 50mm Donal Ref#[id number] Implanted: Qty: 2 on 09/18/2017 by Sebastian Bunn MD at [facility] 06/01/2022 5260-5-020 / 0 / [id number] Screw Ostelock 3.[address] SCREW Right: Hip Donal Cancellous 20mm Donal Ref#[id number] Implanted: Qty: 1 on 09/18/2017 by Sebastian Bunn MD at [facility] 06/01/2022 5260-5-016 / 0 / [id number] Screw Osteolock 3.[address] SCREW Right: Hip Donal Cancellous 18mm Donal Ref#[id number] Implanted: Qty: 1 on 09/18/2017 by Sebastian Bunn MD at [facility] 01/02/2022 [id number] / 0 / [id number] Shell, Donal Tritanium Revision Shell Right: Hip Donal Acetabular #[id number] - S0 Implanted: Qty: 1 on 09/18/2017 by Sebastian Bunn MD at [facility] Procedures Comments Procedure Name Priority Date/Time Associated Diag nosis FLEXIBLE SCOPE ENT Routine 08/28/2019 Adenoid hyp ertrophy CBC WITH DIFFERENTIAL Routine 08/19/2019 Ankylosi ng spondylitis of 2:54 PM WAXER multiple sites in spine QUANTIFERON-TB ASSAY Routine 08/19/2019 Ankylosin g spondylitis of 2:54 PM WAXER multiple sites in spine COMP. METABOLIC PANEL Routine 08/19/2019 Ankylosi ng spondylitis of (13081) 2:54 PM WAXER multiple sites in s pine SEDIMENTATION RATE Routine 08/19/2019 Ankylosing spondylitis of 2:54 PM WAXER multiple sites in spine CBC WITH DIFFERENTIAL Routine 08/19/2019 Ankylosi ng spondylitis of 2:54 PM WAXER multiple sites in spine C-REACTIVE PROTEIN Routine 08/19/2019 Ankylosing spondylitis of 2:49 PM WAXER multiple sites in spine MAGNESIUM Routine 07/31/2019 Postmenopausal bone loss 10:15 AM WAXER VITAMIN B12, LEVEL Routine 07/31/2019 Postmenopau marjorie bone loss 10:15 AM WAXER INTACT PTH CALCIUM GROUP Routine 07/31/2019 Postm enopausal bone loss 10:15 AM WAXER VITAMIN D, 25-OH Routine 07/31/2019 Postmenopausa l bone loss 10:15 AM WAXER PHYSICIAN CERTIFICATION Routine 07/29/2019 STATEMENT 12:01 AM WAXER REFERRAL- Routine 07/28/2019 REQUEST/RESPONSE 12:01 AM WAXER INTUBATION Routine 07/15/2019 1:20 PM WAXER OPEN CARPAL TUNNEL Level 5 07/15/2019 Right carpa l tunnel RELEASE (greater 12:58 PM WAXER syndrome than 5 days) CONSENT/REFUSAL FOR Routine 07/15/2019 DIAGNOSIS AND TREATMENT 10:51 AM WAXER ASSIGNMENT OF BENEFITS Routine 07/15/2019 10:51 AM WAXER DAY SURGERY - VICTORY Routine 07/15/2019 [place] 12:01 AM WAXER EXTERNAL PROVIDER RECORDS Routine 06/20/2019 12:01 AM WAXER FLU VACC ([id number]), 6+ Routine 06/19/2019 Influ tin vaccine needed MONTHS, IM, QUAD 11:21 AM WAXER CONSENT/REFUSAL FOR Routine 06/18/2019 DIAGNOSIS AND TREATMENT 8:10 AM WAXER ASSIGNMENT OF BENEFITS Routine 06/18/2019 8:09 AM WAXER PATIENT QUESTIONNAIRE Routine 06/04/2019 12:01 AM WAXER from Last 3 Months Results * FLEXIBLE SCOPE ENT (08/28/2019) Specimen Narrative Performed At Please see endoscopic findings from clinic note from 08/28/2019. [facility] Performing Organization Address City/State/Zipcode Ph one Number [facility] * CBC WITH DIFFERENTIAL (08/19/2019 2:54 PM WAXER) WBC 6.41 4.30 - 11.10 [facility] [...] Performing Organization Address City/State/Zipcode Ph one Number [facility] CLIA: [id number], [address] [place] [address] [facility] * QUANTIFERON-TB ASSAY (08/19/2019 2:54 PM WAXER) Nil 0.018 IU/mL [facility] TB1 minus Nil 0.004 IU/mL [facility] TB2 minus Nil 0.005 IU/mL [facility] Mitogen minus >10.000 IU/mL [facility] Nil SERVICES QFT Gold Plus Negative Negative [facility] Result SERVICES Specimen Blood - VENOUS Narrative Performed At Test results are calculated in accordan ce with an FDA-approved algorithm run on [facility] QuantiFERON(R) software. SERVICES The QuantiFERON(R) [...] results. For further information, refer to http: //www.cdc.gov/mmwr/pdf/rr/bu7274.pdf |Nil | TB1 minus | TB2 minus [...] Performing Organization Address City/State/Zipcode Ph one Number [facility] CLIA: [id number], [address] [place] [address] [facility] * SEDIMENTATION RATE (08/19/2019 2:54 PM WAXER) ESR 41 (H) 0 - 20 mm/HR [facility] Specimen Blood Performing Organization Address City/[facility]/Zipcode Ph one Number [facility] CLIA: [id number], [address] [place] [address] * COMP. METABOLIC PANEL (10992) (08/19/2019 2:54 PM WAXER) NA 138 135 - 145 mmol/L [facility] [...] SERVICES CREATININE 0.62 0.50 - 1.04 mg/dL [facility] TOTAL BILI 0.6 0.1 - 1.1 mg/dL [facility] CALCIUM 9.9 8.6 - 10.6 mg/dL [facility] T PROTEIN 8.0 6.3 - 8.2 g/dL [facility] ALBUMIN 4.4 3.5 - 5.0 g/dL [facility] ALK PHOS 97 34 - 122 U/L [facility] ALTv 10 5 - 35 U/L [facility] AST(SGOT) 22 13 - 40 U/L [facility] eGFR 100.3 mL/min/1.73m2 [facility] Calculation SERVICES (Non-) eGFR 121.6 mL/min/1.73m2 [facility] Calculation SERVICES () Specimen Blood Narrative Performed At Association of Glomerular Filtration Rate (GFR) and S taging of Kidney Disease* [facility] + + +------ + SERVICES [...] abnormalities in imaging tests). Performing Organization Address [facility] one Number [facility] CLIA: [id number], [address] [place] [address] [facility] * C-REACTIVE PROTEIN (08/19/2019 2:49 PM WAXER) CRP 1.8 (H) <0.8 mg/dL [facility] Specimen Blood Performing Organization Address [facility] one Number [facility] CLIA: [id number], [address] [place] [address] [facility] * VITAMIN D, 25-OH (07/31/2019 10:15 AM WAXER) VIT D 25OH 18 (L) 25 - 80 ng/mL [facility] Specimen Blood Narrative Performed At Deficiency: <20 ng/mL [facility] Insufficiency: 20-24 ng/mL SERVICES Optimal: 25-80 ng/mL Performing Organization Address [facility] one Number [facility] CLIA: [id number], [address] [place] [address] [facility] * INTACT PTH CALCIUM GROUP (07/31/2019 10:15 AM WAXER) CALCIUM 9.9 8.6 - 10.6 mg/dL [facility] RY SERVICES PTH-INTACT 62.3 12.0 - 88.0 pg/mL [facility] SERVICES PTH-CA Comment: PTH IS Appropriate [facility] Interpretation for Calcium SERVICES Specimen Blood Performing Organization Address [facility] one [facility] SERVICES CLIA: [id number], [address] [place] [address] [facility] * VITAMIN B12, LEVEL (07/31/2019 10:15 AM WAXER) VIT B12 345 240 - 930 pg/mL [facility] SERVICES Specimen Blood Narrative Performed At Biotin has been reported to cause a pos itive bias, interpret results relative to [facility] patient's use of biotin. SERVICES Performing Organization Address City/[facility] one Number [facility] CLIA: [id number], [address] [place] [address] [facility] * MAGNESIUM (07/31/2019 10:15 AM WAXER) MAGNESIUM 2.1 1.7 - 2.4 mg/dL [facility] Specimen Blood Performing Organization Address [facility] one Number [facility] CLIA: [id number], [address] [place], [place] [address] [facility] * PHYSICIAN CERTIFICATION STATEMENT (07/29/2019 12:01 AM WAXER) Specimen Performing Organization Address [facility] one Number HIM * REFERRAL- REQUEST/RESPONSE (07/28/2019 12:01 AM WAXER) Specimen Performing Organization [facility] one Number [facility] * Intubation (07/15/2019 1:20 PM WAXER) Narrative Performed At Diana Sorensen CRNA 07/15/2019 [...] FOR DIAGNOSIS AND TREATMENT (07/15/2019 10:51 AM WAXER) Only the most recent of 2 results within the time period is included. Specimen Performing Organization Address [facility] one Number HIM * ASSIGNMENT OF BENEFITS (07/15/2019 10:51 AM WAXER) Only the most recent of 2 results within the time period is included. Specimen Performing Organization Address [facility]/Zipcode Ph one Number HIM * DAY SURGERY - HIMANSHU CATALAN (07/15/2019 12:01 AM WAXER) Specimen Performing Organization Address City/State/Zipcode Ph one Number HIM * EXTERNAL PROVIDER RECORDS (06/20/2019 12:01 AM WAXER) Specimen Performing Organization Address City/State/Zipcode Ph one Number HIM * PATIENT QUESTIONNAIRE (06/04/2019 12:01 AM WAXER) Specimen Performing Organization Address City/State/Zipcode Ph one Number HIM from Last 3 Months Insurance Type Payer Benefit Subscriber ID Effective Phone Address Plan / Dates Group Medicare Adv HMO [facility] [id number] 2018- MANAGED MEDICARE HEALTHCARE Present DUAL COMPLETE HMO [facility] [employer] [id number] 2018- P O BOX SOLUTIONS H Present [id number] [place] [address] Medicaid [place] MEDICAID xxxxxxxxx 2019-P [phone] [address] OF [place] resent [id number] [place] [address] amily (Home) [place] [address] Juan Tinoco [facility] Self 1965 [address] [address] Health (Home) [place] [address] Advance Directives Patient Proof Operator Explanation Type Date Recorded 0 Advance Directives 08/08/2013 8:00 AM and Living Will Power of Retail Customer Service Representative 08/08/2013 8:00 AM
--- OUTSIDE RECORDS SUMMARY | 2019-12-13 15:34 | XMS REPORT | Clinical Summary ---
Author Author [facility] - Health Organization [facility] - Health Address Unknown Phone Unavailable Care Team Providers Care Paper Roller Name Role Phone Ovidio Clarke MD PCP [...] Added automatically from request for jimmy solorio [id number] Cervical spondylosis with radiculopathy 01/01/2019 Overview: Added automatically from request for jimmy solorio [id number] Mixed hyperlipidemia 08/13/2018 Overview: LDL 140 07/17/2018 Left tennis elbow 06/17/2018 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 Overview: R Avulsion fracture of lateral epicondyle of humerus 0 11/14/2017 Painful patella, unspecified laterality 11/05/2017 S/P revision of total hip 09/18/2017 Colon cancer screening 05/24/2017 Overview: Added automatically from request for jimmy solorio [id number] Hematemesis with nausea 05/24/2017 Overview: Added automatically from request for jimmy solorio [id number] Nausea and vomiting, intractability of vomiting not s pecified, unspecified 05/24/2017 vomiting type Overview: Added automatically from request for jimmy solorio [id number] ANJELICA (obstructive sleep apnea) 05/10/2017 Obesity (BMI 30-39.9) 05/01/2017 Microhematuria 02/14/2017 Complex tear of medial meniscus of right knee as curr ent injury, initial 01/18/2017 encounter Overview: Added automatically from request for jimmy solorio [id number] Elevated MCV 07/25/2016 Overview: 103.4 07/22/2016 Muscle [...] lobe nodular opacitiy on chest xray at [facility] 05/22/2015 Hiatus hernia syndrome 04/09/2015 Overview: EGD 03/23/2015 [facility] screening mammogram 01/06/2015 Immunization deficiency 10/09/2014 [...] lower leg 11/25/2013 Overview: ICD10 Diagnosis Term Nanny Caregiver Utility Knee crepitus 11/25/2013 Genu valgum, acquired 11/25/2013 Overview: ICD10 Diagnosis Term Nanny Caregiver Utility Patellofemoral misalignment with pain 11/25/2013 Primary [...] 11/16/2010 Headache 04/08/2010 Overview: ICD10 Diagnosis Term Nanny Caregiver Utility Nonerosive nonspecific gastritis 04/08/2010 Overview: EGD Dr. Lloyd Glossitis 02/23/2010 Tobacco use disorder 02/23/2010 Menorrhagia 05/19/2009 Vision blurred 05/19/2009 Acute upper respiratory infection 08/14/2008 Overview: ICD10 Diagnosis Term Nanny Caregiver Utility Acute pharyngitis 08/14/2008 Screening for malignant neoplasm of cervix Overview: ICD10 Diagnosis Term Nanny Caregiver Utility Breast screening 07/16/2008 Overview: ICD10 Diagnosis Term Nanny Caregiver Utility Urinary tract infection, site not specified 04/29/20 08 Backache 06/02/2007 Overview: Lower back pain ICD10 Diagnosis Term Nanny Caregiver Utility Pain in joint 06/02/2007 Overview: ICD10 Diagnosis Term Nanny Caregiver Utility Cervicalgia 06/02/2007 Myalgia and myositis 06/02/2007 Overview: Bilateral trapezius pain ICD10 Diagnosis Term Nanny Caregiver Utility Absence of menstruation 04/25/2007 Anemia 03/25/2007 Overview: ICD10 Diagnosis Term Nanny Caregiver Utility Helicobacter pylori infection 06/11/2006 Overview: ICD10 Diagnosis Term Nanny Caregiver Utility Acute peptic ulcer 06/11/2006 Overview: ICD10 Diagnosis Term Nanny Caregiver Utility Abdominal pain 04/25/2006 Overview: ICD10 Diagnosis Term Nanny Caregiver Utility Ankylosing spondylitis 04/25/2006 Vaginitis and vulvovaginitis 04/25/2006 Overview: ICD10 Diagnosis Term Nanny Caregiver Utility Other, mixed, or unspecified nondependent drug abuse, continuous 11/30/2005 Resolved Problems Problem Noted Date Resolved Date Arm laceration, right, subsequent encounter 04/13/2014 04/13/2014 Syncope and collapse 02/27/2007 06/28/2014 Bipolar I disorder, most recent episode (or current) unspec ified 01/03/2007 01/23/2018 Overview: Dr. 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 11/30/2005 02/11/2018 Overview: ICD10 Diagnosis Term Nanny Caregiver Utility Encounters Care Team Description Date Type [...] spondylitis of multiple sites in spine 08/19/[address] Clerk Phlebotomy Visit Omar Clay DO Ankylosing spondylitis of multiple sites in spine (Primary Dx); Mycobacterium avium infection; Therapeutic drug monitoring; Anterior uveitis; Schizoaffective disorder, bipolar type 08/19/2019 Office Visit Rheumatology Omar Clay DO Orders (updated infusion order needed fo r Remicade) 08/14/2019 Telephone Rheumatology Ovidio Clarke Jr., MD Refill Request 08/13/2019 Refill Family [facility] Omar Clay DO Refill Request 08/12/2019 Refill Rheumatology Giuliano Gardner FNP [facility] Postmenopausal bone loss 07/31/[address] Clerk Phlebotomy Visit Giuliano Gardner FNP Carpal tunnel syndrome on right (Primary Dx); Postmenopausal bone loss; Ankylosing spondylitis of multiple sites in spine 07/31/2019 Office Visit Orthopedic Surgery Sebastian Doe MD Cervical spondylosis with radiculopathy (Primary Dx); Ankylosing spondylitis, unspecified site of spine; Carpal tunnel syndrome of right wrist; Chronic pain syndrome 07/29/2019 Office Visit Pain Medicine Doctor Unassigned, [place] 07/28/2019 Orders Only Robert Chandler MD Shabot, Sarah, MD 07/15/2019 Anesthesia Surgery Event Zia Resendez MD OPEN CARPAL TUNNEL RELEASE 07/15/2019 Surgery Surgery Zia Resendez MD 07/15/2019 Hospital Surgery Encounter Zia Resendez MD Appointment (2wk surgery F/U) 07/15/2019 Telephone Orthopedic Surgery Doctor Unassigned, [place] 07/15/2019 Orders Only Ovidio Clarke Jr., MD Rx Concern/Question 07/04/2019 Telephone Family Medicine Omar Clay DO 3, Jennifer Adult Infusion Nurse Ankylosing spondylitis, unspecified site of spine (Primary Dx) 06/20/2019 Nurse Visit Infusion Therapy Doctor Unassigned, [place] 06/20/2019 Orders Only Ovidio Clarke Jr., MD [...] ) 06/18/2019 Telephone Orthopedic Surgery Doctor Unassigned, [place] 06/18/2019 Orders Only Zia Resendez MD Notification 06/11/2019 Telephone Orthopedic Surgery Ovidio Clarke Jr., MD Refill Request 06/06/2019 Refill Family Medicine Sebastian Doe MD Cervical spondylosis with radiculopathy (Primary Dx); Chronic pain syndrome; Carpal tunnel syndrome of right wrist; Ankylosing spondylitis, unspecified site of spine 06/04/2019 Office Visit Pain Medicine Doctor Unassigned, [place] 06/04/2019 Orders Only Zia Resendez MD Bilateral [...] Comments Vital Sign 116/70 08/19/2019 2:00 PM ADULT HEALTH CLINICAL NURSE SPECIALIST Blood Pressure 98 08/19/2019 2:00 PM ADULT HEALTH CLINICAL NURSE SPECIALIST Pulse 36.7 C (98 F) 08/28/2019 1:55 PM ADULT HEALTH CLINICAL NURSE SPECIALIST Temperature 16 08/19/2019 2:00 PM ADULT HEALTH CLINICAL NURSE SPECIALIST Respiratory Rate 98% 08/19/2019 2:00 PM ADULT HEALTH CLINICAL NURSE SPECIALIST Oxygen Saturation - - Inhaled Oxygen Concentration 88 kg (194 lb 1.6 oz) 08/28/2019 1:55 PM ADULT HEALTH CLINICAL NURSE SPECIALIST Weight 165.1 cm (5' 5") 08/28/2019 1:55 PM ADULT HEALTH CLINICAL NURSE SPECIALIST Height 32.3 08/28/2019 1:55 PM ADULT HEALTH CLINICAL NURSE SPECIALIST Body Mass Index Plan of Treatment Care Team Description Date Type Specialty 3, Jennifer Adult Infusion Nurse 09/04/2019 Nurse Visit [place] [address] [place] [address] [phone] 09/18/2019 Office Visit Family Medicine Giuliano Gardner, CIRCULAR SAW EDGE FUSER [address] [place] [address] [phone] 09/23/2019 Office Visit Orthopedic Surgery Sebastian Doe MD [address] [place], [place] [address] 10/28/2019 Office Visit Pain Medicine Omar Clay, DO [address] [place] [address] [phone] 11/18/2019 Office Visit Rheumatology Health Maintenance Due [...] UH1-44-28 / 0 / [id number] Bipolar Head, Green Uhr Bipolar BIPOLAR Right: Hip Donal 39v75te #Uh1-44-28 - S0 head Implanted: Qty: 1 on 09/18/2017 by Sebastian Bunn MD at [facility] 07/07/2021 1023-12 / [id number] / [id number] Cancellous Cubes, Community Tissue BONE Right: Hip [facility] Services Freeze Dried 30 Cc Tissue #1023-12 - [id number] Services Implanted: Qty: 1 on 09/18/2017 by Sebastian Bunn MD at [facility] 03/08/2018 2018-40 / [id number] / [id number] Dbm Putty Maxxeus 10cc Cts #2017-40 BONE Right: Hip Counts Include 234 Beds [facility] [id number] Tissue Implanted: Qty: 1 on 09/18/2017 by Services Sebastian Bunn MD at [facility] 04/07/2022 1365-28-720 / 0 / [id number] Delta Ceramic Femoral Head 28mm +5 Head Right: Hip Depuy /14 Taper Depuy Ref#[id number] Synthes Implanted: Qty: 1 on 09/18/2017 by Sebastian Bunn MD at [facility] 03/29/2022 623-00-44F / 0 / [id number] Insert, Donal Trident 0deg 44mm Liner Right: Hip Green #[id number] Implanted: Qty: 1 on 09/18/2017 by Sebastian Bunn MD at [facility] 04/24/2022 5260-5-050 / 0 / [id number] Screw Osteolock 3.[address] SCREW Right: Hip Donal Cancellous 50mm Donal Ref#[id number] Implanted: Qty: 2 on 09/18/2017 by Sebastian Bunn MD at [facility] 06/01/2022 5260-5-020 / 0 / [id number] Screw Ostelock 3.[address] SCREW Right: Hip Donal Cancellous 20mm Donal Ref#[id number] Implanted: Qty: 1 on 09/18/2017 by Sebastian Bunn MD at [facility] 06/01/2022 5260-5-016 / 0 / [id number] Screw Osteolock 3.[address] SCREW Right: Hip Donal Cancellous 18mm Donal Ref#[id number] Implanted: Qty: 1 on 09/18/2017 by Sebastian Bunn MD at [facility] 01/02/2022 509-02-60F / 0 / [id number] Shell, Donal Tritanium Revision Shell Right: Hip Donal Acetabular #[id number] - S0 Implanted: Qty: 1 on 09/18/2017 by Sebastian Bunn MD at [facility] Procedures Comments Procedure Name Priority Date/Time Associated Diag nosis FLEXIBLE SCOPE ENT Routine 08/28/2019 Adenoid hyp ertrophy CBC WITH DIFFERENTIAL Routine 08/19/2019 Ankylosi ng spondylitis of 2:54 PM ADULT HEALTH CLINICAL NURSE SPECIALIST multiple sites in spine QUANTIFERON-TB ASSAY Routine 08/19/2019 Ankylosin g spondylitis of 2:54 PM ADULT HEALTH CLINICAL NURSE SPECIALIST multiple sites in spine COMP. METABOLIC PANEL Routine 08/19/2019 Ankylosi ng spondylitis of (48374) 2:54 PM ADULT HEALTH CLINICAL NURSE SPECIALIST multiple sites in s pine SEDIMENTATION RATE Routine 08/19/2019 Ankylosing spondylitis of 2:54 PM ADULT HEALTH CLINICAL NURSE SPECIALIST multiple sites in spine CBC WITH DIFFERENTIAL Routine 08/19/2019 Ankylosi ng spondylitis of 2:54 PM ADULT HEALTH CLINICAL NURSE SPECIALIST multiple sites in spine C-REACTIVE PROTEIN Routine 08/19/2019 Ankylosing spondylitis of 2:49 PM ADULT HEALTH CLINICAL NURSE SPECIALIST multiple sites in spine MAGNESIUM Routine 07/31/2019 Postmenopausal bone loss 10:15 AM ADULT HEALTH CLINICAL NURSE SPECIALIST VITAMIN B12, LEVEL Routine 07/31/2019 Postmenopau marjorie bone loss 10:15 AM ADULT HEALTH CLINICAL NURSE SPECIALIST INTACT PTH CALCIUM GROUP Routine 07/31/2019 Postm enopausal bone loss 10:15 AM ADULT HEALTH CLINICAL NURSE SPECIALIST VITAMIN D, 25-OH Routine 07/31/2019 Postmenopausa l bone loss 10:15 AM ADULT HEALTH CLINICAL NURSE SPECIALIST PHYSICIAN CERTIFICATION Routine 07/29/2019 STATEMENT 12:01 AM ADULT HEALTH CLINICAL NURSE SPECIALIST REFERRAL- Routine 07/28/2019 REQUEST/RESPONSE 12:01 AM ADULT HEALTH CLINICAL NURSE SPECIALIST INTUBATION Routine 07/15/2019 1:20 PM ADULT HEALTH CLINICAL NURSE SPECIALIST OPEN CARPAL TUNNEL Level 5 07/15/2019 Right carpa l tunnel RELEASE (greater 12:58 PM ADULT HEALTH CLINICAL NURSE SPECIALIST syndrome than 5 days) CONSENT/REFUSAL FOR Routine 07/15/2019 DIAGNOSIS AND TREATMENT 10:51 AM ADULT HEALTH CLINICAL NURSE SPECIALIST ASSIGNMENT OF BENEFITS Routine 07/15/2019 10:51 AM ADULT HEALTH CLINICAL NURSE SPECIALIST DAY SURGERY - VICTORY Routine 07/15/2019 [place]AKES 12:01 AM ADULT HEALTH CLINICAL NURSE SPECIALIST EXTERNAL PROVIDER RECORDS Routine 06/20/2019 12:01 AM ADULT HEALTH CLINICAL NURSE SPECIALIST FLU VACC ([id number]), 6+ Routine 06/19/2019 Influ tin vaccine needed MONTHS, IM, QUAD 11:21 AM ADULT HEALTH CLINICAL NURSE SPECIALIST CONSENT/REFUSAL FOR Routine 06/18/2019 DIAGNOSIS AND TREATMENT 8:10 AM ADULT HEALTH CLINICAL NURSE SPECIALIST ASSIGNMENT OF BENEFITS Routine 06/18/2019 8:09 AM ADULT HEALTH CLINICAL NURSE SPECIALIST PATIENT QUESTIONNAIRE Routine 06/04/2019 12:01 AM ADULT HEALTH CLINICAL NURSE SPECIALIST from Last 3 Months Results * FLEXIBLE SCOPE ENT (08/28/2019) Specimen Narrative Performed At Please see endoscopic findings from clinic note from 08/28/2019. [facility] Performing Organization Address City/State/Zipcode Ph one Number [facility] * CBC WITH DIFFERENTIAL (08/19/2019 2:54 PM ADULT HEALTH CLINICAL NURSE SPECIALIST) WBC 6.41 4.30 - 11.10 [facility] [...] Performing Organization Address City/State/Zipcode Ph one Number [facility] CLIA: [id number], [address] [place] [address] [facility] * QUANTIFERON-TB ASSAY (08/19/2019 2:54 PM ADULT HEALTH CLINICAL NURSE SPECIALIST) Nil 0.018 IU/mL [facility] TB1 minus Nil 0.004 IU/mL [facility] TB2 minus Nil 0.005 IU/mL [facility] Mitogen minus >10.000 IU/mL [facility] Nil SERVICES QFT Gold Plus Negative Negative [facility] Result SERVICES Specimen Blood - VENOUS Narrative Performed At Test results are calculated in accordan ce with an FDA-approved algorithm run on [facility] QuantiFERON(R) software. SERVICES The QuantiFERON(R) [...] results. For further information, refer to http: //www.cdc.gov/mmwr/pdf/rr/dw3347.pdf |Nil | TB1 minus | TB2 minus [...] Performing Organization Address City/State/Zipcode Ph one Number [facility] CLIA: [id number], [address] [place] [address] [facility] * SEDIMENTATION RATE (08/19/2019 2:54 PM ADULT HEALTH CLINICAL NURSE SPECIALIST) ESR 41 (H) 0 - 20 mm/HR [facility] SERVICES Specimen Blood Performing Organization Address City/[facility]/Zipcode Ph one Number [facility] CLIA: [id number], [address] [place] [address] * COMP. METABOLIC PANEL (46280) (08/19/2019 2:54 PM ADULT HEALTH CLINICAL NURSE SPECIALIST) NA 138 135 - 145 mmol/L [facility] [...] SERVICES ALTv 10 5 - 35 U/L [facility] AST(SGOT) 22 13 - 40 U/L [facility] eGFR 100.3 mL/min/1.73m2 [facility] Calculation SERVICES (Non-) eGFR 121.6 mL/min/1.73m2 [facility] Calculation SERVICES () Specimen Blood Narrative Performed At Association of Glomerular Filtration Rate (GFR) and S taging of Kidney Disease* [facility] + + +------ + SERVICES [...] abnormalities in imaging tests). Performing Organization Address [facility] [place] one Number [facility] CLIA: [id number], [address] [place] [address] [facility] * C-REACTIVE PROTEIN (08/19/2019 2:49 PM ADULT HEALTH CLINICAL NURSE SPECIALIST) CRP 1.8 (H) <0.8 mg/dL [facility] SERVICES Specimen Blood Performing Organization Address [facility] [place] one Number [facility] CLIA: [id number], [address] [place] [address] [facility] * VITAMIN D, 25-OH (07/31/2019 10:15 AM ADULT HEALTH CLINICAL NURSE SPECIALIST) VIT D 25OH 18 (L) 25 - 80 ng/mL [facility] Specimen Blood Narrative Performed At Deficiency: <20 ng/mL [facility] Insufficiency: 20-24 ng/mL SERVICES Optimal: 25-80 ng/mL Performing Organization Address [facility] [place] one Number [facility] CLIA: [id number], [address] [place] [address] [facility] * INTACT PTH CALCIUM GROUP (07/31/2019 10:15 AM ADULT HEALTH CLINICAL NURSE SPECIALIST) CALCIUM 9.9 8.6 - 10.6 mg/dL [facility] RY SERVICES PTH-INTACT 62.3 12.0 - 88.0 pg/mL [facility] ORY SERVICES PTH-CA Comment: PTH IS Appropriate [facility] Interpretation for Calcium SERVICES Specimen Blood Performing Organization Address [facility] [place] one [facility] CLIA: [id number], [address] [place] [id number] [facility] * VITAMIN B12, LEVEL (07/31/2019 10:15 AM ADULT HEALTH CLINICAL NURSE SPECIALIST) VIT B12 345 240 - 930 pg/mL [facility] Y SERVICES Specimen Blood Narrative Performed At Biotin has been reported to cause a pos itive bias, interpret results relative to [facility] patient's use of biotin. SERVICES Performing Organization Address City/[facility] [place] one Number [facility] CLIA: [id number], [address] [place] [address] [facility] * MAGNESIUM (07/31/2019 10:15 AM ADULT HEALTH CLINICAL NURSE SPECIALIST) MAGNESIUM 2.1 1.7 - 2.4 mg/dL [facility] LABORATOR Y [facility] Specimen Blood Performing Organization Address [facility] [place] one Number [facility] CLIA: [id number], [address] [place], [place] [address] [facility] * PHYSICIAN CERTIFICATION STATEMENT (07/29/2019 12:01 AM ADULT HEALTH CLINICAL NURSE SPECIALIST) Specimen Performing Organization Address [facility] [place] one Number HIM * REFERRAL- REQUEST/RESPONSE (07/28/2019 12:01 AM ADULT HEALTH CLINICAL NURSE SPECIALIST) Specimen Performing Organization [facility] [place] one Number [facility] * Intubation (07/15/2019 1:20 PM ADULT HEALTH CLINICAL NURSE SPECIALIST) Narrative Performed At Diana Sorensen CRNA 07/15/2019 [...] FOR DIAGNOSIS AND TREATMENT (07/15/2019 10:51 AM ADULT HEALTH CLINICAL NURSE SPECIALIST) Only the most recent of 2 results within the time period is included. Specimen Performing Organization Address [facility] [place] one Number HIM * ASSIGNMENT OF BENEFITS (07/15/2019 10:51 AM ADULT HEALTH CLINICAL NURSE SPECIALIST) Only the most recent of 2 results within the time period is included. Specimen Performing Organization Address [facility]/Zipcode Ph one Number HIM * DAY SURGERY - HIMANSHU CATALAN (07/15/2019 12:01 AM ADULT HEALTH CLINICAL NURSE SPECIALIST) Specimen Performing Organization Address City/State/Zipcode Ph one Number HIM * EXTERNAL PROVIDER RECORDS (06/20/2019 12:01 AM ADULT HEALTH CLINICAL NURSE SPECIALIST) Specimen Performing Organization Address City/State/Zipcode Ph one Number HIM * PATIENT QUESTIONNAIRE (06/04/2019 12:01 AM ADULT HEALTH CLINICAL NURSE SPECIALIST) Specimen Performing Organization Address City/State/Zipcode Ph one Number HIM from Last 3 Months Insurance Type Payer Benefit Subscriber ID Effective Phone Address Plan / Dates Group Medicare Adv HMO [facility] [id number] 2018- MANAGED MEDICARE HEALTHCARE Present DUAL COMPLETE HMO [facility] [employer] [id number] 2018- [address] [employer] H Present [address] [place] [address] Medicaid [employer] MEDICAID xxxxxxxxx 2019-P [phone] [address] [place] resent [id number] [place] [address] amily (Home) [place] [address] [facility] 1965 [address] [address] Health (Home) [place] [address] Advance Directives Patient Check Viewer Explanation Type Date Recorded 0 Advance Directives 08/08/2013 8:00 AM and Living Will Power of Ethanol Maintenance Mechanic 08/08/2013 8:00 AM
--- OUTSIDE RECORDS SUMMARY | 2019-12-13 15:34 | XMS REPORT | Clinical Summary ---
Author Author [facility] - Health Organization [facility] - Health Address Unknown Phone Unavailable Care Team Providers Care Atomizer Assembler Name Role Phone Ovidio Clarke MD PCP [...] in spine MOUTH 1 TIME WEEKLY Active Problems Problem Noted Date Essential hypertension 03/19/2019 Carpal tunnel syndrome on right 03/19/2019 Overview: EMG 02/18/2019 Special screening for malignant neoplasms, colon Overview: Added automatically from request for jimmy solorio [id number] Cervical spondylosis with radiculopathy 01/01/2019 Overview: Added automatically from request for jimmy solorio [id number] Mixed hyperlipidemia 08/13/2018 Overview: LDL 140 07/17/2018 Left tennis elbow 06/17/2018 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 Overview: R Avulsion fracture of lateral epicondyle of humerus 0 11/14/2017 Painful patella, unspecified laterality 11/05/2017 S/P revision of total hip 09/18/2017 Colon cancer screening 05/24/2017 Overview: Added automatically from request for jimmy solorio [id number] Hematemesis with nausea 05/24/2017 Overview: Added automatically from request for jimmy solorio [id number] Nausea and vomiting, intractability of vomiting not s pecified, unspecified 05/24/2017 vomiting type Overview: Added automatically from request for jimmy solorio [id number] ANJELICA (obstructive sleep apnea) 05/10/2017 Obesity (BMI 30-39.9) 05/01/2017 Microhematuria 02/14/2017 Complex tear of medial meniscus of right knee as curr ent injury, initial 01/18/2017 encounter Overview: Added automatically from request for jimmy solorio [id number] Elevated MCV 07/25/2016 Overview: 103.4 07/22/2016 Muscle [...] lobe nodular opacitiy on chest xray at [facility] 05/22/2015 Hiatus hernia syndrome 04/09/2015 [...] lower leg 11/25/2013 Overview: ICD10 Diagnosis Term Box Toe Buffer Utility Knee crepitus 11/25/2013 Genu valgum, acquired 11/25/2013 Overview: ICD10 Diagnosis Term Box Toe Buffer Utility Patellofemoral misalignment with pain 11/25/2013 Primary [...] 11/16/2010 Headache 04/08/2010 Overview: ICD10 Diagnosis Term Box Toe Buffer Utility Nonerosive nonspecific gastritis 04/08/2010 Overview: EGD Dr. Lloyd Glossitis 02/23/2010 Tobacco use disorder 02/23/2010 Menorrhagia 05/19/2009 Vision blurred 05/19/2009 Acute upper respiratory infection 08/14/2008 Overview: ICD10 Diagnosis Term Box Toe Buffer Utility Acute pharyngitis 08/14/2008 Screening for malignant neoplasm of cervix Overview: ICD10 Diagnosis Term Box Toe Buffer Utility Breast screening 07/16/2008 Overview: ICD10 Diagnosis Term Box Toe Buffer Utility Urinary tract infection, site not specified 04/29/20 08 Backache 06/02/2007 Overview: Lower back pain ICD10 Diagnosis Term Box Toe Buffer Utility Pain in joint 06/02/2007 Overview: ICD10 Diagnosis Term Box Toe Buffer Utility Cervicalgia 06/02/2007 Myalgia and myositis 06/02/2007 Overview: Bilateral trapezius pain ICD10 Diagnosis Term Box Toe Buffer Utility Absence of menstruation 04/25/2007 Anemia 03/25/2007 Overview: ICD10 Diagnosis Term Box Toe Buffer Utility Helicobacter pylori infection 06/11/2006 Overview: ICD10 Diagnosis Term Box Toe Buffer Utility Acute peptic ulcer 06/11/2006 Overview: ICD10 Diagnosis Term Box Toe Buffer Utility Abdominal pain 04/25/2006 Overview: ICD10 Diagnosis Term Box Toe Buffer Utility Ankylosing spondylitis 04/25/2006 Vaginitis and vulvovaginitis 04/25/2006 Overview: ICD10 Diagnosis Term Box Toe Buffer Utility Other, mixed, or unspecified nondependent drug abuse, continuous 11/30/2005 Resolved Problems Problem Noted Date Resolved Date Arm laceration, right, subsequent encounter 04/13/2014 04/13/2014 Syncope and collapse 02/27/2007 06/28/2014 Bipolar I disorder, most recent episode (or current) unspec ified 01/03/2007 01/23/2018 Overview: Dr. 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 11/30/2005 02/11/2018 Overview: ICD10 Diagnosis Term Box Toe Buffer Utility Encounters Care Team Description Date Type [...] spondylitis of multiple sites in spine 08/19/2019 Foam Charger Phlebotomy Visit Omar Clay DO Ankylosing spondylitis of multiple sites in spine (Primary Dx); Mycobacterium avium infection; Therapeutic drug monitoring; Anterior uveitis; Schizoaffective disorder, bipolar type 08/19/2019 Office Visit Rheumatology Omar Clay DO Orders (updated infusion order needed fo r Remicade) 08/14/2019 Telephone Rheumatology Ovidio Clarke Jr., MD Refill Request 08/13/2019 Refill Family [facility] Omar Clay DO Refill Request 08/12/2019 Refill Rheumatology Giuliano Gardner FNP V[facility] Postmenopausal bone loss 07/31/2019 Foam Charger Phlebotomy Visit Giuliano Gardner FNP Carpal tunnel syndrome on right (Primary Dx); Postmenopausal bone loss; Ankylosing spondylitis of multiple sites in spine 07/31/2019 Office Visit Orthopedic Surgery Sebastian Doe MD Cervical spondylosis with radiculopathy (Primary Dx); Ankylosing spondylitis, unspecified site of spine; Carpal tunnel syndrome of right wrist; Chronic pain syndrome 07/29/2019 Office Visit Pain Medicine Doctor Unassigned, [place] 07/28/2019 Orders Only Robert Chandler MD Shabot, Sarah, MD 07/15/2019 Anesthesia Surgery Event Zia Resendez MD OPEN CARPAL TUNNEL RELEASE 07/15/2019 Surgery Surgery Zia Resendez MD 07/15/2019 Hospital Surgery Encounter Zia Resendez MD Appointment (2wk surgery F/U) 07/15/2019 Telephone Orthopedic Surgery Doctor Unassigned, [place] 07/15/2019 Orders Only Ovidio Clarke Jr., MD Rx Concern/Question 07/04/2019 Telephone Family Medicine Omar Clay DO 3, Jennifer Adult Infusion Nurse Ankylosing spondylitis, unspecified site of spine (Primary Dx) 06/20/2019 Nurse Visit Infusion Therapy Doctor Unassigned, [place] 06/20/2019 Orders Only Ovidio Clarke Jr., MD [...] ) 06/18/2019 Telephone Orthopedic Surgery Doctor Unassigned, [place] 06/18/2019 Orders Only Zia Resendez MD Notification 06/11/2019 Telephone Orthopedic Surgery Ovidio Clarke Jr., MD Refill Request 06/06/2019 Refill Family Medicine Sebastian Doe MD Cervical spondylosis with radiculopathy (Primary Dx); Chronic pain syndrome; Carpal tunnel syndrome of right wrist; Ankylosing spondylitis, unspecified site of spine 06/04/2019 Office Visit Pain Medicine Doctor Unassigned, [place] 06/04/2019 Orders Only Zia Resendez MD Bilateral [...] Comments Vital Sign 116/70 08/19/2019 2:00 PM BRANCH OPERATION EVALUATION MANAGER Blood Pressure 98 08/19/2019 2:00 PM BRANCH OPERATION EVALUATION MANAGER Pulse 36.7 C (98 F) 08/28/2019 1:55 PM BRANCH OPERATION EVALUATION MANAGER Temperature 16 08/19/2019 2:00 PM BRANCH OPERATION EVALUATION MANAGER Respiratory Rate 98% 08/19/2019 2:00 PM BRANCH OPERATION EVALUATION MANAGER Oxygen Saturation - - Inhaled Oxygen Concentration 88 kg (194 lb 1.6 oz) 08/28/2019 1:55 PM BRANCH OPERATION EVALUATION MANAGER Weight 165.1 cm (5' 5") 08/28/2019 1:55 PM BRANCH OPERATION EVALUATION MANAGER Height 32.3 08/28/2019 1:55 PM BRANCH OPERATION EVALUATION MANAGER Body Mass Index Plan of Treatment Care Team Description Date Type Specialty 3, Jennifer Adult Infusion Nurse 09/04/2019 Nurse Visit [place] [address] [place] [address] [phone] 09/18/2019 Office Visit Family Medicine Giuliano Gradner, CHILD DAY CARE PROVIDER [address] [place] [address] [phone] 09/23/2019 Office Visit Orthopedic Surgery Sebastian Doe MD [address] [place], [place] [address] 10/28/2019 Office Visit Pain Medicine Omar Clay, DO [address] [place] [address] [phone] 11/18/2019 Office Visit Rheumatology Health Maintenance Due [...] UH1-44-28 / 0 / [id number] Bipolar Head, [place] Uhr Bipolar BIPOLAR Right: Hip Donal 68g45iu #Uh1-44-28 - S0 head Implanted: Qty: 1 on 09/18/2017 by Sebastian Bunn MD at [facility] 07/07/2021 1023-12 / [id number] / [id number] Cancellous Cubes, Community Tissue BONE Right: Hip [facility] Services Freeze Dried 30 Cc Tissue #1023-12 - [id number] Services Implanted: Qty: 1 on 09/18/2017 by Sebastian Bunn MD at [facility] 03/08/2018 2018-40 / [id number] / [id number] Dbm Putty Maxxeus 10cc Cts #2017-40 BONE Right: Hip [facility] [id number] Tissue Implanted: Qty: 1 on 09/18/2017 by Services Sebastian Bunn MD at [facility] 04/07/2022 1365-28-720 / 0 / [id number] Delta Ceramic Femoral Head 28mm +5 Head Right: Hip Depuy /14 Taper Depuy Ref#[id number] Synthes Implanted: Qty: 1 on 09/18/2017 by Sebastian Bunn MD at [facility] 03/29/2022 623-00-44F / 0 / [id number] Insert, Donal Trident 0deg 44mm Liner Right: Hip [place] #[id number] Implanted: Qty: 1 on 09/18/2017 by Sebastian Bunn MD at [facility] 04/24/2022 5260-5-050 / 0 / [id number] Screw Osteolock 3.[address] SCREW Right: Hip Donal Cancellous 50mm Donal Ref#[id number] Implanted: Qty: 2 on 09/18/2017 by Sebastian Bunn MD at [facility] 06/01/2022 5260-5-020 / 0 / [id number] Screw Ostelock 3.[address] SCREW Right: Hip Donal Cancellous 20mm Donal Ref#[id number] Implanted: Qty: 1 on 09/18/2017 by Sebastian Bunn MD at [facility] 06/01/2022 5260-5-016 / 0 / [id number] Screw Osteolock 3.[address] SCREW Right: Hip Donal Cancellous 18mm Donal Ref#[id number] Implanted: Qty: 1 on 09/18/2017 by Sebastian Bunn MD at [facility] 01/02/2022 [id number] / 0 / [id number] Shell, Donal Tritanium Revision Shell Right: Hip Donal Acetabular #[id number] - S0 Implanted: Qty: 1 on 09/18/2017 by Sebastian Bunn MD at [facility] Procedures Comments Procedure Name Priority Date/Time Associated Diag nosis FLEXIBLE SCOPE ENT Routine 08/28/2019 Adenoid hyp ertrophy CBC WITH DIFFERENTIAL Routine 08/19/2019 Ankylosi ng spondylitis of 2:54 PM BRANCH OPERATION EVALUATION MANAGER multiple sites in spine QUANTIFERON-TB ASSAY Routine 08/19/2019 Ankylosin g spondylitis of 2:54 PM BRANCH OPERATION EVALUATION MANAGER multiple sites in spine COMP. METABOLIC PANEL Routine 08/19/2019 Ankylosi ng spondylitis of (68885) 2:54 PM BRANCH OPERATION EVALUATION MANAGER multiple sites in s pine SEDIMENTATION RATE Routine 08/19/2019 Ankylosing spondylitis of 2:54 PM BRANCH OPERATION EVALUATION MANAGER multiple sites in spine CBC WITH DIFFERENTIAL Routine 08/19/2019 Ankylosi ng spondylitis of 2:54 PM BRANCH OPERATION EVALUATION MANAGER multiple sites in spine C-REACTIVE PROTEIN Routine 08/19/2019 Ankylosing spondylitis of 2:49 PM BRANCH OPERATION EVALUATION MANAGER multiple sites in spine MAGNESIUM Routine 07/31/2019 Postmenopausal bone loss 10:15 AM BRANCH OPERATION EVALUATION MANAGER VITAMIN B12, LEVEL Routine 07/31/2019 Postmenopau marjorie bone loss 10:15 AM BRANCH OPERATION EVALUATION MANAGER INTACT PTH CALCIUM GROUP Routine 07/31/2019 Postm enopausal bone loss 10:15 AM BRANCH OPERATION EVALUATION MANAGER VITAMIN D, 25-OH Routine 07/31/2019 Postmenopausa l bone loss 10:15 AM BRANCH OPERATION EVALUATION MANAGER PHYSICIAN CERTIFICATION Routine 07/29/2019 STATEMENT 12:01 AM BRANCH OPERATION EVALUATION MANAGER REFERRAL- Routine 07/28/2019 REQUEST/RESPONSE 12:01 AM BRANCH OPERATION EVALUATION MANAGER INTUBATION Routine 07/15/2019 1:20 PM BRANCH OPERATION EVALUATION MANAGER OPEN CARPAL TUNNEL Level 5 07/15/2019 Right carpa l tunnel RELEASE (greater 12:58 PM BRANCH OPERATION EVALUATION MANAGER syndrome than 5 days) CONSENT/REFUSAL FOR Routine 07/15/2019 DIAGNOSIS AND TREATMENT 10:51 AM BRANCH OPERATION EVALUATION MANAGER ASSIGNMENT OF BENEFITS Routine 07/15/2019 10:51 AM BRANCH OPERATION EVALUATION MANAGER DAY SURGERY - VICTORY Routine 07/15/2019 LAKES 12:01 AM BRANCH OPERATION EVALUATION MANAGER EXTERNAL PROVIDER RECORDS Routine 06/20/2019 12:01 AM BRANCH OPERATION EVALUATION MANAGER FLU VACC ([id number]), 6+ Routine 06/19/2019 Influ tin vaccine needed MONTHS, IM, QUAD 11:21 AM BRANCH OPERATION EVALUATION MANAGER CONSENT/REFUSAL FOR Routine 06/18/2019 DIAGNOSIS AND TREATMENT 8:10 AM BRANCH OPERATION EVALUATION MANAGER ASSIGNMENT OF BENEFITS Routine 06/18/2019 8:09 AM BRANCH OPERATION EVALUATION MANAGER PATIENT QUESTIONNAIRE Routine 06/04/2019 12:01 AM BRANCH OPERATION EVALUATION MANAGER from Last 3 Months Results * FLEXIBLE SCOPE ENT (08/28/2019) Narrative Performed At Please see endoscopic findings from clinic note from 08/28/2019. [facility] Performing Organization Address City/State/Zipcode Ph one Number [facility] * CBC WITH DIFFERENTIAL (08/19/2019 2:54 PM BRANCH OPERATION EVALUATION MANAGER) WBC 6.41 4.30 - 11.10 [facility] [...] Performing Organization Address City/State/Zipcode Ph one Number [facility] CLIA: [id number], [address] [place] [address] [facility] * QUANTIFERON-TB ASSAY (08/19/2019 2:54 PM BRANCH OPERATION EVALUATION MANAGER) Nil 0.018 IU/mL [facility] TB1 minus Nil 0.004 IU/mL [facility] TB2 minus Nil 0.005 IU/mL [facility] Mitogen minus >10.000 IU/mL [facility] Nil SERVICES QFT Gold Plus Negative Negative [facility] Result SERVICES Specimen Blood - VENOUS Narrative Performed At Test results are calculated in accordan ce with an FDA-approved algorithm run on [facility] QuantiFERON(R) software. SERVICES The QuantiFERON(R) TB [...] results. For further information, refer to http: //www.cdc.gov/mmwr/pdf/rr/ww1451.pdf |Nil | TB1 minus | TB2 minus [...] Performing Organization Address City/State/Zipcode Ph one Number [facility] CLIA: [id number], [address] [place] [address] [facility] * SEDIMENTATION RATE (08/19/2019 2:54 PM BRANCH OPERATION EVALUATION MANAGER) ESR 41 (H) 0 - 20 mm/HR [facility] Specimen Blood Performing Organization Address City/State/Zipcode Ph one Number [facility] CLIA: [id number], [address] [place] [address] [facility] * COMP. METABOLIC PANEL (01061) (08/19/2019 2:54 PM BRANCH OPERATION EVALUATION MANAGER) NA 138 135 - 145 mmol/L [facility] [...] SERVICES ALTv 10 5 - 35 U/L [facility] AST(SGOT) 22 13 - 40 U/L [facility] eGFR 100.3 mL/min/1.73m2 [facility] Calculation SERVICES (Non-) eGFR 121.6 mL/min/1.73m2 [facility] Calculation SERVICES () Specimen Blood Narrative Performed At Association of Glomerular Filtration Rate (GFR) and S taging of Kidney Disease* [facility] + + +------ + SERVICES | [...] abnormalities in imaging tests). Performing Organization Address [facility] one Number [facility] CLIA: [id number], [address] [place] [address] [facility] * C-REACTIVE PROTEIN (08/19/2019 2:49 PM BRANCH OPERATION EVALUATION MANAGER) CRP 1.8 (H) <0.8 mg/dL [facility] Specimen Blood Performing Organization Address [facility] one Number [facility] CLIA: [id number], [address] [place] [address] [facility] * VITAMIN D, 25-OH (07/31/2019 10:15 AM BRANCH OPERATION EVALUATION MANAGER) VIT D 25OH 18 (L) 25 - 80 ng/mL [facility] Specimen Blood Narrative Performed At Deficiency: <20 ng/mL [facility] Insufficiency: 20-24 ng/mL SERVICES Optimal: 25-80 ng/mL Performing Organization Address [facility] one Number [facility] CLIA: [id number], [address] [place] [address] [facility] * INTACT PTH CALCIUM GROUP (07/31/2019 10:15 AM BRANCH OPERATION EVALUATION MANAGER) CALCIUM 9.9 8.6 - 10.6 mg/dL [facility]O RY SERVICES PTH-INTACT 62.3 12.0 - 88.0 pg/mL [facility]AT ORY SERVICES PTH-CA Comment: PTH IS Appropriate [facility] Interpretation for Calcium SERVICES Specimen Blood Performing Organization Address [facility] one Number [facility] CLIA: [id number], [address] [place] [address] [facility] * VITAMIN B12, LEVEL (07/31/2019 10:15 AM BRANCH OPERATION EVALUATION MANAGER) VIT B12 345 240 - 930 pg/mL [facility] LABORATOR Y SERVICES Specimen Blood Narrative Performed At Biotin has been reported to cause a pos itive bias, interpret results relative to [facility] patient's use of biotin. SERVICES Performing Organization Address [facility] one Number [facility] CLIA: [id number], [address] [place] [address] [facility] * MAGNESIUM (07/31/2019 10:15 AM BRANCH OPERATION EVALUATION MANAGER) MAGNESIUM 2.1 1.7 - 2.4 mg/dL [facility] LABORATOR Y [facility] Specimen Blood Performing Organization Address [facility] one Number [facility] CLIA: [id number], [address] [place], [place] [address] [facility] * PHYSICIAN CERTIFICATION STATEMENT (07/29/2019 12:01 AM BRANCH OPERATION EVALUATION MANAGER) Specimen Performing Organization [facility] one Number HIM * REFERRAL- REQUEST/RESPONSE (07/28/2019 12:01 AM BRANCH OPERATION EVALUATION MANAGER) Specimen Performing Organization [facility] one Number [facility] * Intubation (07/15/2019 1:20 PM BRANCH OPERATION EVALUATION MANAGER) Narrative Performed At Diana Sorensen CRNA 07/15/2019 [...] FOR DIAGNOSIS AND TREATMENT (07/15/2019 10:51 AM BRANCH OPERATION EVALUATION MANAGER) Only the most recent of 2 results within the time period is included. Specimen Performing Organization Address [facility] one Number HIM * ASSIGNMENT OF BENEFITS (07/15/2019 10:51 AM BRANCH OPERATION EVALUATION MANAGER) Only the most recent of 2 results within the time period is included. Specimen Performing Organization Address [facility]/Zipcode Ph one Number HIM * DAY SURGERY - HIMANSHU CATALAN (07/15/2019 12:01 AM BRANCH OPERATION EVALUATION MANAGER) Specimen Performing Organization Address City/State/Zipcode Ph one Number [facility] * EXTERNAL PROVIDER RECORDS (06/20/2019 12:01 AM BRANCH OPERATION EVALUATION MANAGER) Specimen Performing Organization Address City/State/Zipcode Ph one Number [facility] * PATIENT QUESTIONNAIRE (06/04/2019 12:01 AM BRANCH OPERATION EVALUATION MANAGER) Specimen Performing Organization Address City/State/Zipcode Ph one Number HIM from Last 3 Months Insurance Type Payer Benefit Subscriber ID Effective Phone Address Plan / Dates Group Medicare Adv [place] [id number] 2018- MANAGED MEDICARE HEALTHCARE Present DUAL COMPLETE HMO [facility] [employer] [id number] 2018- [address] SOLUTIONS H Present [address] [place] [address] Medicaid [place] MEDICAID xxxxxxxxx 2019-P [phone] [address] [place] [facility] [id number] [place] [address] amily (Home) [place] [address] [facility] 1965 [address] [address] Health (Home) [place] [address] Advance Directives Patient Santa'S Helper Explanation Type Date Recorded 0 Advance Directives 08/08/2013 8:00 AM and Living Will Power of Zipper Slide Attacher 08/08/2013 8:00 AM
--- OUTSIDE RECORDS SUMMARY | 2019-12-13 15:35 | XMS REPORT | Summary of Care ---
Author Author [facility] - Health Organization [facility] - Health Address Unknown Phone Unavailable Care Team Providers Care Doctor Of Osteopathy Name Role Phone Ovidio Clarke MD PCP Reason for Visit * Reason Comments Rx Concern/Question Encounter Details Care Team Description Date [place] [address] [place] [address] Rx Concern/Question 09/22/2019 Telephone [facility] [address] . [place] [address] Allergies Comments Active Allergy Reactions Severity Noted Date Aspirin Hives 03/21/2012 Sulfa (Sulfonamide Hives 11/29/2005 Antibiotics) documented as of this encounter (statuses as of 09/22/2019) Medications End Date Status Medication Sig Dispensed Refills Start Date Active azithromycin 250 mg Take 250 mg 0 tablet by mouth. Active VENTOLIN HFA 90 INHALE 2 5 mcg/actuation inhaler PUFFS Q 4 H 8 PRF WHEEZING OR BREATHLESSNES S Active miconazole (MICONAZOLE 7) Insert 1 45 g 0 2 % vaginal Applicator 9 creamIndications: Acute into vagina vaginitis at bedtime. Active ondansetron 4 mg DISSOLVE ONE 0 disintegrating tablet TAB IN MOUTH 9 EVERY 8 HOURS NEEDED FOR NAUSEA FOR UP TO 30 DAYS Active Miconazole-Skin Clnsr17 Use as 1 Kit [...] TIMES unspecified site of spine DAILY Active ziprasidone 20 mg Take 1 60 capsule 2 06/11/20 1 capsuleIndications: capsule by 9 Schizoaffective disorder, mouth 2 (two) depressive type times daily with meals. Active rifAMPin 300 mg capsule 2 tabs 3 x 0 weekly 9 Active ethambutol 400 mg tablet 3 tabs three 0 06/19 times a week 9 Active LORazepam 1 mg Take one 6 tablet 0 tabletIndications: tablet by 0 Anxiety mouth daily as needed for anxiety 09/25/2019 Active ergocalciferol, vitamin Take 1 8 capsule 0 d2, 1,250 mcg (50,000 capsule by 0 unit) capsuleIndications: mouth weekly Postmenopausal bone loss for 8 doses. Active foLIC acid 1 mg Take 2 [...] Insomnia. Active esomeprazole (NEXIUM) 40 Take 1 90 capsule 3 0 mg capsuleIndications: capsule by 0 Gastroesophageal reflux mouth daily disease without with esophagitis, Nonerosive breakfast. nonspecific gastritis TAKE ONE CAPSULE BY MOUTH EVERY MORNING WITH BREAKFAST Active cyclobenzaprine 5 mg TAKE 1 TABLET 30 tablet 5 tabletIndications: BY MOUTH 0 Ankylosing spondylitis, THREE TIMES unspecified site of spine DAILY Active Diclofenac Sodium 1 % Apply 2 g to 100 g 0 gelIndications: Painful neck qid 0 patella, unspecified laterality, Primary localized osteoarthrosis, lower leg, unspecified laterality, Muscle weakness of lower extremity, Effusion of lower leg joint, Knee crepitus, unspecified laterality, Patellofemoral instability of right knee with pain Active hydroCHLOROthiazide 25 mg Take 1 tablet 30 tablet 11 tabletIndications: by mouth 0 Essential hypertension daily. Active gabapentin 600 mg Take 1 tablet 90 tablet 6 tabletIndications: by mouth 3 0 Cervicalgia, Myofascial (three) times pain daily. Active metroNIDAZOLE 500 mg TK 1 T PO 14 tablet 0 09/17 tabletIndications: BID X 7 DAYS 0 Vaginitis and vulvovaginitis Active HYDROcodone-acetaminophen Take 1 tablet 120 tablet 0 10-325 mg by mouth 0 tabletIndications: every 6 (six) Ankylosing spondylitis, hours as unspecified site of needed for spine, Painful patella, Pain (scale unspecified laterality, 4-6). Primary localized osteoarthrosis, lower leg, unspecified laterality documented as of this encounter (statuses as of 09/22/2019) Active Problems Problem Noted Date Essential hypertension 03/19/2019 Carpal tunnel syndrome on right 03/19/2019 Overview: EMG 02/18/2019 Special screening for malignant neoplasms, colon Overview: Added automatically from request for jimmy solorio [id number] Cervical spondylosis with radiculopathy 01/01/2019 Overview: Added automatically from request for jimmy solorio [id number] Mixed hyperlipidemia 08/13/2018 Overview: LDL 140 07/17/2018 Left tennis elbow 06/17/2018 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 Overview: R Avulsion fracture of lateral epicondyle of humerus 0 11/14/2017 Painful patella, unspecified laterality 11/05/2017 S/P revision of total hip 09/18/2017 Colon cancer screening 05/24/2017 Overview: Added automatically from request for jimmy solorio [id number] Hematemesis with nausea 05/24/2017 Overview: Added automatically from request for jimmy solorio [id number] Nausea and vomiting, intractability of vomiting not s pecified, unspecified 05/24/2017 vomiting type Overview: Added automatically from request for jimmy solorio [id number] ANJELICA (obstructive sleep apnea) 05/10/2017 Obesity (BMI 30-39.9) 05/01/2017 Microhematuria 02/14/2017 Complex tear of medial meniscus of right knee as curr ent injury, initial 01/18/2017 encounter Overview: Added automatically from request for jimmy solorio [id number] Elevated MCV 07/25/2016 Overview: 103.4 07/22/2016 Muscle [...] EGD 03/23/2015 [facility] [place] mamm[place] 01/06/2015 Immunization deficiency 10/09/2014 Overview: [...] lower leg 11/25/2013 Overview: ICD10 Diagnosis 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 Lloyd Glossitis 02/23/2010 Tobacco use disorder 02/23/2010 Menorrhagia 05/19/2009 Vision blurred 05/19/2009 Acute upper respiratory infection 08/14/2008 Overview: ICD10 Diagnosis Term [employer] Utility Acute pharyngitis 08/14/2008 Screening for malignant neoplasm of cervix 9 Overview: ICD10 Diagnosis Term [employer] Breast screening 07/16/2008 Overview: ICD10 Diagnosis Term [employer] Utility Urinary tract infection, site not specified 04/29/20 08 Backache 06/02/2007 Overview: Lower back pain ICD10 Diagnosis Term [employer] Pain in joint 06/02/2007 Overview: ICD10 Diagnosis Term [employer] Cervicalgia 06/02/2007 Myalgia and myositis 06/02/2007 Overview: Bilateral trapezius pain ICD10 Diagnosis Term [employer] Absence of menstruation 04/25/2007 Anemia 03/25/2007 Overview: ICD10 Diagnosis Term [employer] Utility Helicobacter pylori infection 06/11/2006 Overview: ICD10 Diagnosis Term Dust [employer] Utility Acute peptic ulcer 06/11/2006 Overview: ICD10 Diagnosis Term Dust [employer] Utility Abdominal pain 04/25/2006 Overview: ICD10 Diagnosis Term [employer] Utility Ankylosing spondylitis 04/25/2006 Vaginitis and vulvovaginitis 04/25/2006 Overview: ICD10 Diagnosis Term [employer] Utility Other, mixed, or unspecified nondependent drug abuse, continuous 11/30/2005 documented as of this encounter (statuses as of 09/22/2019) Resolved Problems Problem Noted Date Resolved Date Arm laceration, right, subsequent encounter 04/13/2014 04/13/2014 Syncope and collapse 02/27/2007 06/28/2014 Bipolar I disorder, most recent episode (or current) unspec ified 01/03/2007 01/23/2018 Overview: Dr. 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 11/30/2005 02/11/2018 Overview: ICD10 Diagnosis Term [employer] Utility documented as of this encounter (statuses as of 09/22/2019) Immunizations Name Administration Dates Next Due Hepatitis [...] Care Team Description Date Type Specialty Giuliano Gardner, ALVIN [address] [place] [address] [phone] 09/23/2019 Office Visit Orthopedic Surgery Sebastian Doe MD [address] [place], [place] [address] 10/28/2019 Office Visit Pain Medicine 2, Jennifer Adult Infusion Nurse 10/30/2019 Nurse Visit Infusion Therapy Omar Clay, [address] [place], [place] [address] 11/18/2019 Office [place] [address] [place] [address] 12/02/2019 Office Visit Family Medicine Health Maintenance Due [...] Head, Donal Uhr Bipolar BIPOLAR Right: Hip [place] [id number] #Uh1-44-28 - S0 head Implanted: Qty: 1 on 09/18/2017 by Sebastian Bunn MD at [facility] 07/07/2021 1023-12 / [id number] / [id number] Cancellous Cubes, Community Tissue BONE Right: [facility] Services Freeze Dried 30 Cc Tissue #1023-12 - [id number] Services Implanted: Qty: 1 on 09/18/2017 by Sebastian Bunn MD at [facility] 03/08/2018 2018-40 / [id number] / [id number] Dbm Putty Maxxeus 10cc Cts #2018-40 BONE Right: Hip [facility] - [id number] Tissue Implanted: Qty: 1 on 09/18/2017 by Services Sebastian Bunn MD at [facility] 04/07/2022 1365-28-720 / 0 / [id number] Delta Ceramic Femoral Head 28mm +5 Head [...] [facility] 04/[facility]2022 5260-5-050 / 0 / [id number] Screw Osteolock [address] SCREW Right: Hip Donal Cancellous 50mm Donal Ref#[id number] Implanted: Qty: 2 on 09/18/2017 by Sebastian Bunn MD at [facility] 06/01/2022 5260-5-020 / 0 / [id number] Screw Ostelock 3.[address] SCREW Right: Hip [place] Cancellous 20mm Donal Ref#[id number] Implanted: Qty: 1 on 09/18/2017 by Sebastian Bunn MD at [facility] 06/01/2022 5260-5-016 / 0 / [id number] Screw Osteolock 3.[address] SCREW [...] Plan / Dates Group Medicare Adv O [facility] [id number] 2018- MANAGED MEDICARE HEALTHCARE Present DUAL COMPLETE HMO [facility] [id number] 2018- P O BOX SOLUTIONS H Present [address] [place] [address] [facility] MEDICAID xxxxxxxxx 2019-P [phone] [address] [facility] [id number] [place] [address] documented as of this encounter Advance Directives Patient Male Model Explanation Type Date Recorded 0 Advance Directives 08/08/2013 8:00 AM and Living Will Power of 3D Designer 08/08/2013 8:00 AM
--- OUTSIDE RECORDS SUMMARY | 2019-12-13 15:35 | XMS REPORT | Summary of Care ---
Author Author [facility] - Health Organization [facility] - Health Address Unknown Phone Unavailable Care Team Providers Care Liquefaction And Regasification Helper Name Role Phone Ovidio Clarke MD PCP Reason for Visit * Reason Comments Infusion Therapy * (Routine) Referred By Contact Referred To Contact Status Reason Specialty Diagnoses / [place] [address] [place] [id number] Authorized Infusion Therapy Diagnoses Rheumatoid arthritis, involving unspecified site, unspecified rheumatoid factor presence P rocedures CONSULT/REFERRAL AMB INFUSION THERAPY Preferred location: [place] ([facility] 3rd Floor) Encounter Details Care Team Description Date Type Department Omar Clay DO [address] [place], [place] [address] 3, Jennifer Adult Infusion Nurse Ankylosing spondylitis, unspecified site of spine (Primary Dx) 09/04/2019 Nurse Visit [facility] [address] [facility] [address] [place] [phone] Allergies Comments Active Allergy Reactions Severity Noted Date Aspirin Hives 03/21/2012 Sulfa (Sulfonamide Hives 11/29/2005 Antibiotics) documented as of this encounter (statuses as of 09/04/2019) Medications End Date Status Medication Sig Dispensed Refills Start Date Active azithromycin 250 mg Take 250 mg 0 tablet by mouth. Active VENTOLIN HFA 90 INHALE 2 5 03/18/ mcg/actuation inhaler PUFFS Q 4 H 8 [...] 40 Take 1 90 capsule 3 1 08/20/201 mg capsuleIndications: capsule by 9 Gastroesophageal reflux [...] as of this encounter (statuses as of 09/04/2019) Active Problems Problem Noted Date Essential hypertension 03/19/2019 Carpal tunnel syndrome on right 03/19/2019 Overview: EMG 02/18/2019 Special screening for malignant neoplasms, colon Overview: Added automatically from request for jimmy solorio [id number] Cervical spondylosis with radiculopathy 01/01/2019 Overview: Added automatically from request for jimmy solorio [id number] Mixed hyperlipidemia 08/13/2018 Overview: LDL 140 07/17/2018 Left tennis elbow 06/17/2018 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 Overview: R Avulsion fracture of lateral epicondyle of humerus 0 11/14/2017 Painful patella, unspecified laterality 11/05/2017 S/P revision of total hip 09/18/2017 Colon cancer screening 05/24/2017 Overview: Added automatically from request for jimmy solorio [id number] Hematemesis with nausea 05/24/2017 Overview: Added automatically from request for jimmy solorio [id number] Nausea and vomiting, intractability of vomiting not s pecified, unspecified 05/24/2017 vomiting type Overview: Added automatically from request for jimmy solorio [id number] ANJELICA (obstructive sleep apnea) 05/10/2017 Obesity (BMI 30-39.9) 05/01/2017 Microhematuria 02/14/2017 Complex tear of medial meniscus of right knee as curr ent injury, initial 01/18/2017 encounter Overview: Added automatically from request for jimmy solorio [id number] Elevated MCV 07/25/2016 Overview: 103.4 07/22/2016 Muscle [...] 04/09/2015 Overview: EGD 03/23/2015 [facility] Other screening mammogram 01/06/2015 Immunization deficiency [...] lower leg 11/25/2013 Overview: ICD10 Diagnosis 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 Utility Acute pharyngitis 08/14/2008 Screening for malignant neoplasm of cervix 9 Overview: ICD10 Diagnosis Term [facility] Sales Representative Utility Breast screening 07/16/2008 Overview: ICD10 Diagnosis Term [facility] Sales Representative Utility Urinary tract infection, site not specified 04/29/20 08 Backache 06/02/2007 Overview: Lower back pain ICD10 Diagnosis Term [facility] Utility Pain in joint 06/02/2007 Overview: ICD10 Diagnosis Term [facility] Sales [facility] Utility Cervicalgia 06/02/2007 Myalgia and myositis 06/02/2007 Overview: Bilateral trapezius pain ICD10 Diagnosis Term [facility] Sales [facility] Utility Absence of menstruation 04/25/2007 Anemia 03/25/2007 Overview: ICD10 Diagnosis Term [facility] Utility Helicobacter pylori infection 06/11/2006 Overview: ICD10 Diagnosis Term [facility] Utility Acute peptic ulcer 06/11/2006 Overview: ICD10 Diagnosis Term [facility] Sales Representative Utility Abdominal pain 04/25/2006 Overview: ICD10 Diagnosis Term [facility] Sales Representative Utility Ankylosing spondylitis 04/25/2006 Vaginitis and vulvovaginitis 04/25/2006 Overview: ICD10 Diagnosis Term 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2 oz) 09/04/2019 9:05 AM CUSTOM SEAMSTRESS Weight - - Height 32.43 09/01/2019 8:32 AM CUSTOM SEAMSTRESS Body Mass Index documented in this encounter Progress Notes * Arian Shirley RN - 09/04/2019 9:00 AM CUSTOM SEAMSTRESS 1250 - Infusion completed without incident. IV tubing flushed with IV fluids. PI V discontinued, pressure held, coban dressing applied. IV catheter appears intac t on visual inspection. Patient provided with preferred teaching of verbal infor mation on plan of care. Shows readiness to learn. Verbal instruction teaching pr ovided. Individual is able to read and verbalizes understanding of teaching prov ided. Patient departed ambulatory from clinic. OM SEAMSTRESS * Roberta Hurtado RN - 09/04/2019 9:00 AM CUSTOM SEAMSTRESS Infusion Therapy Note ALLERGIES: Aspirin and Sulfa (sulfonamide antibiotics) Diagnosis (Primary)Ankylosing Spondylitis Diagnosis (Secondary) Time Out Patient identified by Name and Infusion verified with Stella Cowan IV Therapy Type:Peripheral Site Location:left forearm Blood return present:yes I.V. Flush:0.9 NS 10cc x 1 vial(s) I.V. Patent:yes I.V. Fluids:None During administration:burning: no, redness: no and swelling: no Comments: IV started to left forearm, with 24 gauge needle. Attempted 1x (1x, 2x ). Tolerated procedure well. Site without redness or swelling. IV patent at 0 cc/hr. Connected to pump. ANTIEMETIC/PREMED/OTHER DRUG DOSE ROUTE START TIME STOP TIME Tylenol 650mg PO 1015 NA Benadryl 25mg PO 1015 NA HYDRATION/THERAPEUTIC DRUG DOSE ROUTE START TIME STOP TIME Remicade 619mg IV 1045 1250 Comments: OM SEAMSTRESS documented in this encounter Plan of Treatment Care Team Description Date [place] [address] [place] [phone] 09/18/2019 Office Visit Family Medicine Giuliano Gardner, IMPORT/EXPORT CLERK [address] [place] [address] [phone] 09/23/2019 Office Visit Orthopedic Surgery Sebastian Doe MD [address] [place] [address] [address] [place], [place] [address] 10/28/2019 Office Visit Pain Medicine 2, Jennifer Adult Infusion Nurse 10/30/2019 Nurse Visit Infusion Therapy Omar Clay, DO [address] [place] [address] [phone] 11/18/2019 Office Visit Rheumatology Day Ndiaye MD [address] [place] [address]. [place] [address] 12/08/2019 Office Visit Psychiatry Health Maintenance Due Date Last Done Comments [...] UH1-44-28 / 0 / [id number] Bipolar Head, [place] Uhr Bipolar BIPOLAR Right: Hip [place] [id number] #Uh1-44-28 - S0 head Implanted: Qty: 1 on 09/18/2017 by Sebastian Bunn MD at [facility] 07/07/2021 1023-12 / [id number] / [id number] Cancellous Cubes, Community Tissue BONE Right: Hip [facility] Services Freeze Dried 30 Cc Tissue #1023-12 - [id number] Services Implanted: Qty: 1 on 09/18/2017 by Sebastian Bunn MD at [facility] 03/08/2018 2018-40 / [id number] / [id number] Dbm Putty Maxxeus 10cc Cts #2018-40 BONE Right: Hip [facility] - [id number] Tissue Implanted: Qty: 1 on 09/18/2017 by Services Sebastian Bunn MD at [facility] 04/07/2022 1365-28-720 / 0 / [id number] Delta Ceramic Femoral Head 28mm +5 Head Right: Hip Depuy 06/21 Taper Depuy Ref#[id number] Synthes Implanted: Qty: 1 on 09/18/2017 by Sebastian Bunn MD at [facility] 03/29/2022 623-00-44F / 0 / [id number] Insert, [place] Trident 0deg 44mm Liner Right: Hip [place] #[id number] Implanted: Qty: 1 on 09/18/2017 by Sebastian Bunn MD at [facility] 04/24/2022 5260-5-050 / 0 / [id number] Screw Osteolock 3.[address] SCREW Right: Hip [place] Cancellous 50mm [place] Ref#[id number] Implanted: Qty: 2 on 09/18/2017 by Sebastian Bunn MD at [facility] 06/01/2022 5260-5-020 / 0 / [id number] Screw Ostelock 3.[address] SCREW Right: Hip [place] Cancellous 20mm [place] Ref#[id number] Implanted: Qty: 1 on 09/18/2017 by Sebastian Bunn MD at [facility] 06/01/2022 5260-5-016 / 0 / [id number] Screw Osteolock 3.[address] SCREW Right: Hip Donal Cancellous 18mm Donal Ref#[id number] Implanted: Qty: 1 on 09/18/2017 by Sebastian Bunn MD at [facility] 01/02/2022 [id number] / 0 / [id number] Shell, Donal Tritanium Revision Shell Right: Hip [place] Acetabular #[id number] - S0 Implanted: Qty: 1 on 09/18/2017 by Sebastian Bunn MD at [facility] documented as of this encounter Results Not on filedocumented in this encounter Visit Diagnoses Diagnosis Ankylosing spondylitis, unspecified sit e of spine - Primary documented in this encounter Administered Medications Action Date Dose Rate Site Medication Order MAR Action 09/04/2019 10:15 AM CUSTOM SEAMSTRESS 650 mg acetaminophen (TYLENOL) tablet 650 mg Given 650 mg, Oral, ONCE, 1 dose, Bety 09/04/19 at 1015, Routine 09/04/2019 10:15 AM CUSTOM SEAMSTRESS 25 mg diphenhydrAMINE (BENADRYL) tablet 25 mg Given 25 mg, Oral, ONCE, 1 dose, Bety 09/04/19 at 1015, Routine 09/04/2019 9:43 AM CUSTOM SEAMSTRESS 619 mg inFLIXimab (REMICADE) 619 mg in NaCl Given 0.9% (NS) infusion 619 mg (rounded from 618.8 mg = 7 mg/kg 88.4 kg), IV Piggyback, ONCE, 1 dose, Bety 09/04/19 at 1015, 250 mL, Criteria for use: Patient currently on Remicade documented in this encounter Insurance Type Payer Benefit Subscriber ID Effective Phone Address Plan / Dates Group Medicare Adv O [facility] [id number] 2018- MANAGED MEDICARE HEALTHCARE Present DUAL COMPLETE O Medicaid [facility] MEDICAID xxxxxxxxx 2019-P [phone] P O [facility] [id number] [place] [address] ([place]) [place] [address] documented as of this encounter Advance Directives Patient Frame Wirer Explanation Type Date Recorded 0 Advance Directives 08/08/2013 8:00 AM and Living Will Power of Custodial Operations Manager 08/08/2013 8:00 AM
--- OUTSIDE RECORDS SUMMARY | 2019-12-13 15:35 | XMS REPORT | Clinical Summary ---
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 Name Role Phone Ovidio Clarke MD PCP [...] Overview: Added automatically from request for marquez Climeworksmandy [id number] Cervical spondylosis with radiculopathy 01/01/2019 Overview: Added automatically from request for marquez [employer] [id number] Mixed hyperlipidemia 08/13/2018 Overview: LDL 140 07/17/2018 Left tennis elbow 06/17/2018 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 Overview: R Avulsion fracture of lateral epicondyle of humerus 0 11/14/2017 Painful patella, unspecified laterality 11/05/2017 S/P revision of total hip 09/18/2017 Colon cancer screening 05/24/2017 Overview: Added automatically from request for jimmy solorio [id number] Hematemesis with nausea 05/24/2017 Overview: Added automatically from request for jimmy solorio [id number] Nausea and vomiting, intractability of vomiting not s pecified, unspecified 05/24/2017 vomiting type Overview: Added automatically from request for jimmy solorio [id number] ANJELICA (obstructive sleep apnea) 05/10/2017 Obesity (BMI 30-39.9) 05/01/2017 Microhematuria 02/14/2017 Complex tear of medial meniscus of right knee as curr ent injury, initial 01/18/2017 encounter Overview: Added automatically from request for jimmy solorio [id number] Elevated MCV 07/25/2016 Overview: 103.4 07/22/2016 Muscle [...] lobe nodular opacitiy on chest xray at [facility] 05/22/2015 Hiatus hernia syndrome 04/09/2015 Overview: [...] lower leg 11/25/2013 Overview: ICD10 Diagnosis Term Rig Superintendent Utility Knee crepitus 11/25/2013 Genu valgum, acquired 11/25/2013 Overview: ICD10 Diagnosis Term Rig Superintendent Utility Patellofemoral misalignment with pain 11/25/2013 Primary [...] 11/16/2010 Headache 04/08/2010 Overview: ICD10 Diagnosis Term Rig Superintendent Utility Nonerosive nonspecific gastritis 04/08/2010 Overview: EGD Dr. Lloyd Glossitis 02/23/2010 Tobacco use disorder 02/23/2010 Menorrhagia 05/19/2009 Vision blurred 05/19/2009 Acute upper respiratory infection 08/14/2008 Overview: ICD10 Diagnosis Term Rig Superintendent Utility Acute pharyngitis 08/14/2008 Screening for malignant neoplasm of cervix Overview: ICD10 Diagnosis Term Rig Superintendent Utility Breast screening 07/16/2008 Overview: ICD10 Diagnosis Term Rig Superintendent Utility Urinary tract infection, site not specified 04/29/20 08 Backache 06/02/2007 Overview: Lower back pain ICD10 Diagnosis Term Rig Superintendent Utility Pain in joint 06/02/2007 Overview: ICD10 Diagnosis Term Rig Superintendent Utility Cervicalgia 06/02/2007 Myalgia and myositis 06/02/2007 Overview: Bilateral trapezius pain ICD10 Diagnosis Term Rig Superintendent Utility Absence of menstruation 04/25/2007 Anemia 03/25/2007 Overview: ICD10 Diagnosis Term Rig Superintendent Utility Helicobacter pylori infection 06/11/2006 Overview: ICD10 Diagnosis Term Rig Superintendent Utility Acute peptic ulcer 06/11/2006 Overview: ICD10 Diagnosis Term Rig Superintendent Utility Abdominal pain 04/25/2006 Overview: ICD10 Diagnosis Term Rig Superintendent Utility Ankylosing spondylitis 04/25/2006 Vaginitis and vulvovaginitis 04/25/2006 Overview: ICD10 Diagnosis Term Rig Superintendent Utility Other, mixed, or unspecified nondependent drug abuse, continuous 11/30/2005 Resolved Problems Problem Noted Date Resolved Date Arm laceration, right, subsequent encounter 04/13/2014 04/13/2014 Syncope and collapse 02/27/2007 06/28/2014 Bipolar I disorder, most recent episode (or current) unspec ified 01/03/2007 01/23/2018 Overview: Dr. 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 11/30/2005 02/11/2018 Overview: ICD10 Diagnosis Term Rig Superintendent Utility Encounters Care Team Description Date Type Specialty Susan Naylor PA-C Tonsillar hypertrophy (Primary Dx); Adenoid hypertrophy; Tobacco use disorder; Nasal turbinate hypertrophy; Cryptic tonsil; Fransisco's edema of vocal folds 08/28/2019 Office Visit Otolaryngology Ovidio Clarke Jr., MD Rx Concern/Question 08/28/2019 Telephone Family [facility] Omar Clay DO Refill Request 08/24/2019 Refill Rheumatology Omar Clay, DO New Medication 08/23/2019 Telephone Rheumatology Omar Clay DO Talk To Nurse 08/20/2019 Telephone Rheumatology Omar Clay DO Pcp-Lab Ankylosing spondylitis of multiple sites in spine 08/19/2019 Nursery Technician Phlebotomy Visit Omar Clay, Ankylosing spondylitis of multiple sites in spine (Primary Dx); Mycobacterium avium infection; Therapeutic drug monitoring; Anterior uveitis; Schizoaffective disorder, bipolar type 08/19/2019 Office Visit Rheumatology Omar Clay, Orders (updated infusion order needed fo r Remicade) 08/14/2019 Telephone Rheumatology Ovidio Clarke Jr., MD Refill Request 08/13/2019 Refill [facility] Omar Clay DO Refill Request 08/12/2019 Refill Rheumatology Giuliano Gardner FNP Vls-Lab Postmenopausal bone loss 07/31/2019 Nursery Technician Phlebotomy Visit Giuliano Gardner FNP Carpal tunnel syndrome on right (Primary Dx); Postmenopausal bone loss; Ankylosing spondylitis of multiple sites in spine 07/31/2019 Office Visit Orthopedic Surgery Sebastian Doe MD Cervical spondylosis with radiculopathy (Primary Dx); Ankylosing spondylitis, unspecified site of spine; Carpal tunnel syndrome of right wrist; Chronic pain syndrome 07/29/2019 Office Visit Pain Medicine Doctor Unassigned, [place] 07/28/2019 Orders Only Robert Chandler MD Shabot, Sarah, MD 07/15/2019 Anesthesia Surgery Event Zia Resendez MD OPEN CARPAL TUNNEL RELEASE 07/15/2019 Surgery Surgery Zia Resendez MD 07/15/2019 Hospital Surgery Encounter Zia Resendez MD Appointment (2wk surgery F/U) 07/15/2019 Telephone Orthopedic Surgery Doctor Unassigned, [place] 07/15/2019 Orders Only Ovidio Clarke Jr., MD Rx Concern/Question 07/04/2019 Telephone Family Medicine Omar Clay DO 3, Jennifer Adult Infusion Nurse Ankylosing spondylitis, unspecified site of spine (Primary Dx) 06/20/2019 Nurse Visit Infusion Therapy Doctor Unassigned, [place] 06/20/2019 Orders Only Ovidio Clarke Jr., MD [...] ) 06/18/2019 Telephone Orthopedic Surgery Doctor Unassigned, [place] 06/18/2019 Orders Only Zia Resendez MD Notification 06/11/2019 Telephone Orthopedic Surgery Ovidio Clarke Jr., MD Refill Request 06/06/2019 Refill Family Medicine Sebastian Doe MD Cervical spondylosis with radiculopathy (Primary Dx); Chronic pain syndrome; Carpal tunnel syndrome of right wrist; Ankylosing spondylitis, unspecified site of spine 06/04/2019 Office Visit Pain Medicine Doctor Unassigned, [place] 06/04/2019 Orders Only Zia Resendez MD Bilateral [...] Comments Vital Sign 125/74 09/01/2019 8:32 AM CRUSHER SUPERVISOR Blood Pressure 92 09/01/2019 8:32 AM CRUSHER SUPERVISOR Pulse 36.7 C (98 F) 08/28/2019 1:55 PM CRUSHER SUPERVISOR Temperature 18 09/01/2019 8:32 AM CRUSHER SUPERVISOR Respiratory Rate 98% 08/19/2019 2:00 PM CRUSHER SUPERVISOR Oxygen Saturation - - Inhaled Oxygen Concentration 88.4 kg (194 lb 14.4 oz) 09/01/2019 8:32 AM CRUSHER SUPERVISOR Weight 165.1 cm (5' 5") 09/01/2019 8:32 AM CRUSHER SUPERVISOR Height 32.43 09/01/2019 8:32 AM CRUSHER SUPERVISOR Body Mass Index Plan of Treatment Care Team Description Date Type Specialty Omar Clay, [address] [place], [place] [address] 3, Jennifer Adult Infusion Nurse 09/04/2019 Nurse Visit [place] [address] [place] [address] 09/18/2019 Office Visit Family Medicine Jay-Giuliano Goodson, SUPERVISOR EPOXY FABRICATION [address] [place] [address] [phone] 09/23/2019 Office Visit Orthopedic Surgery Sebastian Doe MD [id number] [place], [place] [address] 10/28/2019 Office Visit Pain Medicine Omar Clay, DO [address] [place] [address] [phone] 11/18/2019 Office Visit Rheumatology Health Maintenance Due [...] Head, Donal Uhr Bipolar BIPOLAR Right: Hip Brent 65z09xs #[id number] - S0 head Implanted: Qty: 1 on 09/18/2017 by Sebastian Bunn MD at [facility] 07/07/2021 1023-12 / [id number] / [id number] Cancellous Cubes, Community Tissue BONE Right: Hip [facility] Services Freeze Dried 30 Cc Tissue #1023-12 - [id number] Services Implanted: Qty: 1 on 09/18/2017 by Sebastian Bunn MD at [facility] 03/08/2018 2018-40 / [id number] / [id number] Dbm Putty Maxxeus 10cc Cts #2017-40 BONE Right: Hip [facility] [id number] Tissue Implanted: Qty: 1 on 09/18/2017 by Services Sebastian Bunn MD at [facility] 04/07/2022 1365-28-720 / 0 / [id number] Delta Ceramic Femoral Head 28mm +5 Head Right: Hip Depuy /14 Taper Depuy Ref#[id number] Synthes Implanted: Qty: 1 on 09/18/2017 by Sebastian Bunn MD at [facility] 03/29/2022 623-00-44F / 0 / [id number] Insert, Donal Trident 0deg 44mm Liner Right: Hip Brent #[id number] Implanted: Qty: 1 on 09/18/2017 by Sebastian Bunn MD at [facility] 04/24/2022 5260-5-050 / 0 / [id number] Screw Osteolock [address] SCREW Right: Hip Brent Cancellous 50mm Brent Ref#[id number] Implanted: Qty: 2 on 09/18/2017 by Sebastian Bunn MD at [facility] 06/01/2022 5260-5-020 / 0 / [id number] Screw Ostelock 3.[address] SCREW Right: Hip Brent Cancellous 20mm Donal Ref#[id number] Implanted: Qty: 1 on 09/18/2017 by Sebastian Bunn MD at [facility] 06/01/2022 5260-5-016 / 0 / [id number] Screw Osteolock 3.[address] SCREW Right: Hip Donal Cancellous 18mm Brent Ref#[id number] Implanted: Qty: 1 on 09/18/2017 by Sebastian Bunn MD at [facility] 01/02/2022 509-02-60F / 0 / [id number] Shell, Brent Tritanium Revision Shell Right: Hip Donal Acetabular #[id number] - S0 Implanted: Qty: 1 on 09/18/2017 by Sebastian Bunn MD at [facility] Procedures Comments Procedure Name Priority Date/Time Associated Diag nosis FLEXIBLE SCOPE ENT Routine 08/28/2019 Adenoid hyp ertrophy CBC WITH DIFFERENTIAL Routine 08/19/2019 Ankylosi ng spondylitis of 2:54 PM CRUSHER SUPERVISOR multiple sites in spine QUANTIFERON-TB ASSAY Routine 08/19/2019 Ankylosin g spondylitis of 2:54 PM CRUSHER SUPERVISOR multiple sites in spine COMP. METABOLIC PANEL Routine 08/19/2019 Ankylosi ng spondylitis of (46451) 2:54 PM CRUSHER SUPERVISOR multiple sites in s pine SEDIMENTATION RATE Routine 08/19/2019 Ankylosing spondylitis of 2:54 PM CRUSHER SUPERVISOR multiple sites in spine CBC WITH DIFFERENTIAL Routine 08/19/2019 Ankylosi ng spondylitis of 2:54 PM CRUSHER SUPERVISOR multiple sites in spine C-REACTIVE PROTEIN Routine 08/19/2019 Ankylosing spondylitis of 2:49 PM CRUSHER SUPERVISOR multiple sites in spine MAGNESIUM Routine 07/31/2019 Postmenopausal bone loss 10:15 AM CRUSHER SUPERVISOR VITAMIN B12, LEVEL Routine 07/31/2019 Postmenopau marjorie bone loss 10:15 AM CRUSHER SUPERVISOR INTACT PTH CALCIUM GROUP Routine 07/31/2019 Postm enopausal bone loss 10:15 AM CRUSHER SUPERVISOR VITAMIN D, 25-OH Routine 07/31/2019 Postmenopausa l bone loss 10:15 AM CRUSHER SUPERVISOR PHYSICIAN CERTIFICATION Routine 07/29/2019 STATEMENT 12:01 AM CRUSHER SUPERVISOR REFERRAL- Routine 07/28/2019 REQUEST/RESPONSE 12:01 AM CRUSHER SUPERVISOR INTUBATION Routine 07/15/2019 1:20 PM CRUSHER SUPERVISOR OPEN CARPAL TUNNEL Level 5 07/15/2019 Right carpa l tunnel RELEASE (greater 12:58 PM CRUSHER SUPERVISOR syndrome than 5 days) CONSENT/REFUSAL FOR Routine 07/15/2019 DIAGNOSIS AND TREATMENT 10:51 AM CRUSHER SUPERVISOR ASSIGNMENT OF BENEFITS Routine 07/15/2019 10:51 AM CRUSHER SUPERVISOR DAY SURGERY - VICTORY Routine 07/15/2019 LAKES 12:01 AM CRUSHER SUPERVISOR EXTERNAL PROVIDER RECORDS Routine 06/20/2019 12:01 AM CRUSHER SUPERVISOR FLU VACC (9912-7928), 6+ Routine 06/19/2019 Influ tin vaccine needed MONTHS, IM, QUAD 11:21 AM CRUSHER SUPERVISOR CONSENT/REFUSAL FOR Routine 06/18/2019 DIAGNOSIS AND TREATMENT 8:10 AM CRUSHER SUPERVISOR ASSIGNMENT OF BENEFITS Routine 06/18/2019 8:09 AM CRUSHER SUPERVISOR PATIENT QUESTIONNAIRE Routine 06/04/2019 12:01 AM CRUSHER SUPERVISOR from Last 3 Months Results * FLEXIBLE SCOPE ENT (08/28/2019) Specimen Narrative Performed At Please see endoscopic findings from clinic note from 08/28/2019. [facility] Performing Organization Address City/State/Zipcode Ph one Number [facility] * CBC WITH DIFFERENTIAL (08/19/2019 2:54 PM CRUSHER SUPERVISOR) WBC 6.41 4.30 - 11.10 [facility] [...] Performing Organization Address City/State/Zipcode Ph one Number [facility] [[email or web address]] LABORATORY SERVICES CLIA: [id number], [address] [place] [address] [facility] * QUANTIFERON-TB ASSAY (08/19/2019 2:54 PM CRUSHER SUPERVISOR) Nil 0.018 IU/mL [facility] TB1 minus Nil 0.004 IU/mL [facility] TB2 minus Nil 0.005 IU/mL [facility] Mitogen minus >10.000 IU/mL [facility] Nil SERVICES QFT Gold Plus Negative Negative [facility] [[email or web address]] LABORATORY Result SERVICES Specimen Blood - VENOUS Narrative Performed At Test results are calculated in accordan ce with an FDA-approved algorithm run on [facility] [[email or web address] LABORATORY QuantiFERON(R) software. SERVICES The QuantiFERON(R) TB [...] results. For further information, refer to http: //www.cdc.gov/mmwr/pdf/rr/hn4018.pdf |Nil | TB1 minus | TB2 minus [...] Performing Organization Address City/State/Zipcode Ph one Number [facility] [[email or web address]] LABORATORY SERVICES CLIA: [id number], [address] [place] [address] [facility] * SEDIMENTATION RATE (08/19/2019 2:54 PM CRUSHER SUPERVISOR) ESR 41 (H) 0 - 20 mm/HR [email or web address]] LABORATORY SERVICES Specimen Blood Performing Organization Address City/State/Zipcode Ph one Number [facility] [[email or web address]] LABORATORY SERVICES CLIA: [id number], [address] [place] [address] [facility] * COMP. METABOLIC PANEL (56652) (08/19/2019 2:54 PM CRUSHER SUPERVISOR) NA 138 135 - 145 mmol/L [facility] [...] (GFR) and S taging of Kidney Disease* [facility] [[email or web address] LABORATORY + + +------ + SERVICES | [...] abnormalities in imaging tests). Performing Organization Address City/[facility] one Number [facility] [[email or web address] LABORATORY SERVICES CLIA: [id number], [address] [place] [address] [facility] * C-REACTIVE PROTEIN (08/19/2019 2:49 PM CRUSHER SUPERVISOR) CRP 1.8 (H) <0.8 mg/dL [facility] [[email or web address]] LABORATORY SERVICES Specimen Blood Performing Organization Address [facility] one Number [facility] [[email or web address]] LABORATORY SERVICES CLIA: [id number], [address] [place] [address] [facility] * VITAMIN D, 25-OH (07/31/2019 10:15 AM CRUSHER SUPERVISOR) VIT D 25OH 18 (L) 25 - 80 ng/mL [facility] [[email or web address]] LABORATORY SERVICES Specimen Blood Narrative Performed At Deficiency: <20 ng/mL [facility] [[email or web address]] LABORATORY Insufficiency: 20-24 ng/mL SERVICES Optimal: 25-80 ng/mL Performing Organization Address [facility] one Number [facility] [[email or web address]] LABORATORY SERVICES CLIA: [id number], [address] [place] [address] [facility] * INTACT PTH CALCIUM GROUP (07/31/2019 10:15 AM CRUSHER SUPERVISOR) CALCIUM 9.9 8.6 - 10.6 mg/dL [facility] [[email or web address]] LABORATO RY SERVICES PTH-INTACT 62.3 12.0 - 88.0 pg/mL [facility] [[email or web address]] LABORAT ORY SERVICES PTH-CA Comment: PTH IS Appropriate [facility] [[email or web address]] LABO RATORY Interpretation for Calcium SERVICES Specimen Blood Performing Organization Address [facility] one Number [facility] [[email or web address]] LABORATORY SERVICES CLIA: [id number], [address] [place] [address] [facility] * VITAMIN B12, LEVEL (07/31/2019 10:15 AM CRUSHER SUPERVISOR) VIT B12 345 240 - 930 pg/mL [facility] [[email or web address]] LABORATOR Y SERVICES Specimen Blood Narrative Performed At Biotin has been reported to cause a pos itive bias, interpret results relative to [facility] [[email or web address] LABORATORY patient's use of biotin. SERVICES Performing Organization Address [facility] Ph one Number [facility] [[email or web address]] LABORATORY SERVICES CLIA: [id number], [address] [place] [address] [facility] * MAGNESIUM (07/31/2019 10:15 AM CRUSHER SUPERVISOR) MAGNESIUM 2.1 1.7 - 2.4 mg/dL [facility] [[email or web address]] LABORATOR Y [facility] Specimen Blood Performing Organization Address [facility] Ph one Number [facility] [[email or web address]] LABORATORY CLIA: [id number], [address] [place], [place] [address] [facility] * PHYSICIAN CERTIFICATION STATEMENT (07/29/2019 12:01 AM CRUSHER SUPERVISOR) Specimen Performing Organization [facility] one Number HIM * REFERRAL- REQUEST/RESPONSE (07/28/2019 12:01 AM CRUSHER SUPERVISOR) Specimen Performing Organization [facility] one Number [facility] * Intubation (07/15/2019 1:20 PM CRUSHER SUPERVISOR) Narrative Performed At Diana Sorensen CRNA 07/15/2019 [...] FOR DIAGNOSIS AND TREATMENT (07/15/2019 10:51 AM CRUSHER SUPERVISOR) Only the most recent of 2 results within the time period is included. Specimen Performing Organization Address [facility] one Number HIM * ASSIGNMENT OF BENEFITS (07/15/2019 10:51 AM CRUSHER SUPERVISOR) Only the most recent of 2 results within the time period is included. Specimen Performing Organization Address [facility] one Number HIM * DAY SURGERY - HIMANSHU CATALAN (07/15/2019 12:01 AM CRUSHER SUPERVISOR) Specimen Performing Organization Address City/State/Zipcode Ph one Number [facility] * EXTERNAL PROVIDER RECORDS (06/20/2019 12:01 AM CRUSHER SUPERVISOR) Specimen Performing Organization Address City/State/Zipcode Ph one Number [facility] * PATIENT QUESTIONNAIRE (06/04/2019 12:01 AM CRUSHER SUPERVISOR) Specimen Performing Organization Address City/State/Zipcode Ph one Number HIM from Last 3 Months Insurance Type Payer Benefit Subscriber ID Effective Phone Address Plan / Dates Group Medicare Adv HMO [place] Real Time Content [facility] [id number] 2018- MANAGED MEDICARE HEALTHCARE Present DUAL COMPLETE HMO [facility] [employer] [id number] 2018- [address] [employer] H Present [address] [place] [address] Medicaid [place] MEDICAID xxxxxxxxx 2019-P [phone] [address] [place] [facility] [id number] [place] [address] amily (Home) [place] [address] [facility] 1965 [phone] [address] [address] Health (Home) [place] [address] Advance Directives Patient Squilgeer Explanation Type Date Recorded 0 Advance Directives 08/08/2013 8:00 AM and Living Will Power of Security Compliance Engineer 08/08/2013 8:00 AM
--- OUTSIDE RECORDS SUMMARY | 2019-12-13 15:35 | XMS REPORT | Summary of Care ---
Author Author [facility] - Health Organization [facility] - Health Address Unknown Phone Unavailable Care Team Providers Care Substance Abuse Clinician Name Role Phone Ovidio Clarke MD PCP Reason for Visit * Reason Comments Rx Concern/Question Encounter Details Care Team Description Date [place] [address] [place] [address] Rx Concern/Question 09/19/2019 Telephone [facility] [address] . [place] [address] Allergies Comments Active Allergy Reactions Severity Noted Date Aspirin Hives 03/21/2012 Sulfa (Sulfonamide Hives 11/29/2005 Antibiotics) documented as of this encounter (statuses as of 09/19/2019) Medications End Date Status Medication Sig Dispensed [...] as of this encounter (statuses as of 09/19/2019) Active Problems Problem Noted Date Essential hypertension 03/19/2019 Carpal tunnel syndrome on right 03/19/2019 Overview: EMG 02/18/2019 Special screening for malignant neoplasms, colon Overview: Added automatically from request for jimmy solorio [id number] Cervical spondylosis with radiculopathy 01/01/2019 Overview: Added automatically from request for jimmy solorio [id number] Mixed hyperlipidemia 08/13/2018 Overview: LDL 140 07/17/2018 Left tennis elbow 06/17/2018 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 Overview: R Avulsion fracture of lateral epicondyle of humerus 0 11/14/2017 Painful patella, unspecified laterality 11/05/2017 S/P revision of total hip 09/18/2017 Colon cancer screening 05/24/2017 Overview: Added automatically from request for jimmy solorio [id number] Hematemesis with nausea 05/24/2017 Overview: Added automatically from request for jimmy solorio [id number] Nausea and vomiting, intractability of vomiting not s pecified, unspecified 05/24/2017 vomiting type Overview: Added automatically from request for jimmy solorio [id number] ANJELICA (obstructive sleep apnea) 05/10/2017 Obesity (BMI 30-39.9) 05/01/2017 Microhematuria 02/14/2017 Complex tear of medial meniscus of right knee as curr ent injury, initial 01/18/2017 encounter Overview: Added automatically from request for jimmy solorio [id number] Elevated MCV 07/25/2016 Overview: 103.4 07/22/2016 Muscle [...] Overview: EGD 03/23/2015 [facility] screening mammogram 01/06/2015 Immunization [...] lower leg 11/25/2013 Overview: ICD10 Diagnosis Term Real Estate Asset [employer] Utility Knee crepitus 11/25/2013 Genu valgum, acquired 11/25/2013 Overview: ICD10 Diagnosis Term Real Estate Asset Manager Utility Patellofemoral misalignment with pain 11/25/2013 [...] 11/16/2010 Headache 04/08/2010 Overview: ICD10 Diagnosis Term Real Estate Asset Manager Utility Nonerosive nonspecific gastritis 04/08/2010 Overview: EGD Dr. Lloyd Glossitis 02/23/2010 Tobacco use disorder 02/23/2010 Menorrhagia 05/19/2009 Vision blurred 05/19/2009 Acute upper respiratory infection 08/14/2008 Overview: ICD10 Diagnosis Term [employer] Estate Asset [employer] Utility Acute pharyngitis 08/14/2008 Screening for malignant neoplasm of cervix 9 Overview: ICD10 Diagnosis Term [employer] Utility Breast screening 07/16/2008 Overview: ICD10 Diagnosis Term [employer] Estate [employer] Utility Urinary tract infection, site not specified 04/29/20 08 Backache 06/02/2007 Overview: Lower back pain ICD10 Diagnosis Term [employer] Estate Asset [employer] Utility Pain in joint 06/02/2007 Overview: ICD10 Diagnosis Term [employer] Estate Asset [employer] Utility Cervicalgia 06/02/2007 Myalgia and myositis 06/02/2007 Overview: Bilateral trapezius pain ICD10 Diagnosis Term [employer] Estate [employer] Utility Absence of menstruation 04/25/2007 Anemia 03/25/2007 Overview: ICD10 Diagnosis Term [employer] Estate Asset [employer] Utility Helicobacter pylori infection 06/11/2006 Overview: ICD10 Diagnosis Term Real Estate Asset Manager Utility Acute peptic ulcer 06/11/2006 Overview: ICD10 Diagnosis Term Real Estate Asset Manager Utility Abdominal pain 04/25/2006 Overview: ICD10 Diagnosis Term Real Estate Asset Manager Utility Ankylosing spondylitis 04/25/2006 Vaginitis and vulvovaginitis 04/25/2006 Overview: ICD10 Diagnosis Term Real Estate Asset Manager Utility Other, mixed, or unspecified nondependent drug abuse, continuous 11/30/2005 documented as of this encounter (statuses as of 09/19/2019) Resolved Problems Problem Noted Date Resolved Date Arm laceration, right, subsequent encounter 04/13/2014 04/13/2014 Syncope and collapse 02/27/2007 06/28/2014 Bipolar I disorder, most recent episode (or current) unspec ified 01/03/2007 01/23/2018 Overview: Dr. 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 11/30/2005 02/11/2018 Overview: ICD10 Diagnosis Term Real Estate Asset Manager Utility documented as of this encounter (statuses as of 09/19/2019) Immunizations Name Administration Dates Next Due Hepatitis [...] Date Type Specialty Giuliano Gardner, [address] [place] [address] [phone] 09/23/2019 Office Visit Orthopedic Surgery Sebastian Doe MD [id number] [place], [place] [address] 10/28/2019 Office Visit Pain Medicine 2, Jennifer Adult Infusion Nurse 10/30/2019 Nurse Visit Infusion Therapy Omar Clay, [address] [place], [place] [address] 11/18/2019 Office [place] [address] [place] [address] 12/02/2019 Office Visit Family Medicine [...] UH1-44-28 / 0 / [id number] Bipolar Head, Venus Uhr Bipolar BIPOLAR Right: Hip Donal [id number] #Uh1-44-28 - S0 head Implanted: Qty: 1 on 09/18/2017 by Sebastian Bunn MD at [facility] 07/07/2021 1023-12 / [id number] / [id number] Cancellous Cubes, Community Tissue BONE Right: [facility] Services Freeze Dried 30 Cc Tissue #1023-12 - [id number] Services Implanted: Qty: 1 on 09/18/2017 by Sebastian Bunn MD at [facility] 03/08/2018 2018-40 / [id number] / [id number] Dbm Putty Maxxeus 10cc Cts #2018-40 BONE Right: Hip [facility] - [id number] Tissue Implanted: Qty: 1 on 09/18/2017 by Services Sebastian Bunn MD at [facility] 04/07/2022 1365-28-720 / 0 / [id number] Delta Ceramic Femoral Head 28mm +5 Head Right: Hip Depuy 06/21 Taper Depuy Ref#1365-28-720 Synthes Implanted: Qty: 1 on 09/18/2017 by Sebastian Bunn MD at [facility] 03/29/2022 623-00-44F / 0 / [id number] Insert, Donal Trident 0deg 44mm Liner Right: Hip Venus #[id number] Implanted: Qty: 1 on 09/18/2017 by Sebastian Bunn MD at [facility] 04/24/2022 5260-5-050 / 0 / [id number] Screw Osteolock [address] SCREW Right: Hip Venus Cancellous 50mm Donal Ref#[id number] Implanted: Qty: 2 on 09/18/2017 by Sebastian Bunn MD at [facility] 06/01/2022 5260-5-020 / 0 / [id number] Screw Ostelock 3.[address] SCREW Right: Hip Donal Cancellous 20mm Venus Ref#5260-5-020 Implanted: Qty: 1 on 09/18/2017 by Sebastian Bunn MD at [facility] 06/01/2022 5260-5-016 / 0 / [id number] Screw Osteolock 3.[address] SCREW Right: Hip Donal Cancellous 18mm Venus Ref#[id number] Implanted: Qty: 1 on 09/18/2017 by Sebastian Bunn MD at [facility] 01/02/2022 509-02-60F / 0 / [id number] Shell, Donal Tritanium Revision Shell Right: Hip Venus Acetabular #[id number] - S0 Implanted: Qty: 1 on 09/18/2017 by Sebastian Bunn MD at [facility] documented as of this encounter Results Not on filedocumented in this encounter Visit Diagnoses Diagnosis Ankylosing spondylitis, unspecified sit e of spine Painful patella, unspecified laterality Primary localized osteoarthrosis, lower leg, unspecified laterality documented in this encounter Insurance Type Payer Benefit Subscriber ID Effective Phone Address Plan / Dates Group Medicare Adv O [facility] [id number] 2018- MANAGED MEDICARE HEALTHCARE Present DUAL COMPLETE HMO [facility] [employer] [id number] 2018- [address] SOLUTIONS H Present [address] [place] [address] Medicaid [facility] MEDICAID xxxxxxxxx 2019-P [phone] [address] OF [place] [facility] [address] [place] [address] documented as of this encounter Advance Directives Patient Polymer Materials Consultant Explanation Type Date Recorded 0 Advance Directives 08/08/2013 8:00 AM and Living Will Power of English Tutor 08/08/2013 8:00 AM
--- OUTSIDE RECORDS SUMMARY | 2019-12-13 15:35 | XMS REPORT | Summary of Care ---
Author Author [facility] - Health Organization [facility] - Health Address Unknown Phone Unavailable Care Team Providers Care Portable Track Line Marker Name Role Phone Ovidio Clarke MD PCP Reason for Visit * Reason Comments Rx Concern/Question Encounter Details Care Team Description Date [place] [address] [place] [address] Rx Concern/Question 08/28/2019 Telephone [facility] [address] . [place] [address] Allergies Comments Active Allergy Reactions Severity Noted Date Aspirin Hives 03/21/2012 Sulfa (Sulfonamide Hives 11/29/2005 Antibiotics) documented as of this encounter (statuses as of 09/02/2019) Medications End Date Status Medication Sig Dispensed [...] sites in spine MOUTH 1 TIME WEEKLY 09/01/2019 Discontinued (Side effects) buPROPion XL 150 mg 24 hr TK 1 T PO D 2 tablet 9 09/01/2019 Discontinued (Patient Report ed) paliperidone 6 mg 24 hour TK 1 T PO D 2 tablet 9 documented as of this encounter (statuses as of 09/02/2019) Active Problems Problem Noted Date Essential hypertension 03/19/2019 Carpal tunnel syndrome on right 03/19/2019 Overview: EMG 02/18/2019 Special screening for malignant neoplasms, colon Overview: Added automatically from request for Vdancer [id number] Cervical spondylosis with radiculopathy 01/01/2019 Overview: Added automatically from request for Vdancer [id number] Mixed hyperlipidemia 08/13/2018 Overview: LDL 140 07/17/2018 Left tennis elbow 06/17/2018 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 Overview: R Avulsion fracture of lateral epicondyle of humerus 0 11/14/2017 Painful patella, unspecified laterality 11/05/2017 S/P revision of total hip 09/18/2017 Colon cancer screening 05/24/2017 Overview: Added automatically from request for Vdancer [id number] Hematemesis with nausea 05/24/2017 Overview: Added automatically from request for marquez Zamzee [id number] Nausea and vomiting, intractability of vomiting not s pecified, unspecified 05/24/2017 vomiting type Overview: Added automatically from request for Vdancer [id number] ANJELICA (obstructive sleep apnea) 05/10/2017 Obesity (BMI 30-39.9) 05/01/2017 Microhematuria 02/14/2017 Complex tear of medial meniscus of right knee as curr ent injury, initial 01/18/2017 encounter Overview: Added automatically from request for jimmy solorio [id number] Elevated MCV 07/25/2016 Overview: 103.4 07/22/2016 Muscle [...] opac[facility] 05/22/2015 Hiatus hernia [...] 11/25/2013 Overview: ICD10 Diagnosis Term Computer Systems Consultant Utility Knee crepitus 11/25/2013 Genu valgum, acquired 11/25/2013 Overview: ICD10 Diagnosis Term Computer Systems Consultant Utility Patellofemoral misalignment with pain 11/25/2013 [...] 04/08/2010 Overview: ICD10 Diagnosis Term Computer Systems Consultant Utility Nonerosive nonspecific gastritis 04/08/2010 Overview: EGD Dr. Lloyd Glossitis 02/23/2010 Tobacco use disorder 02/23/2010 Menorrhagia 05/19/2009 Vision blurred 05/19/2009 Acute upper respiratory infection 08/14/2008 Overview: ICD10 Diagnosis Term Computer Systems Consultant Utility Acute pharyngitis 08/14/2008 Screening for malignant neoplasm of cervix 9 Overview: ICD10 Diagnosis Term Computer Systems Consultant Utility Breast screening 07/16/2008 Overview: ICD10 Diagnosis Term Computer Systems Consultant Utility Urinary tract infection, site not specified 04/29/20 08 Backache 06/02/2007 Overview: Lower back pain ICD10 Diagnosis Term Computer Systems Consultant Utility Pain in joint 06/02/2007 Overview: ICD10 Diagnosis Term Computer Systems Consultant Utility Cervicalgia 06/02/2007 Myalgia and myositis 06/02/2007 Overview: Bilateral trapezius pain ICD10 Diagnosis Term Computer Systems Consultant Utility Absence of menstruation 04/25/2007 Anemia 03/25/2007 Overview: ICD10 Diagnosis Term Computer Systems Consultant Utility Helicobacter pylori infection 06/11/2006 Overview: ICD10 Diagnosis Term Computer Systems Consultant Utility Acute peptic ulcer 06/11/2006 Overview: ICD10 Diagnosis Term Computer Systems Consultant Utility Abdominal pain 04/25/2006 Overview: ICD10 Diagnosis Term Computer Systems Consultant Utility Ankylosing spondylitis 04/25/2006 Vaginitis and vulvovaginitis 04/25/2006 Overview: ICD10 Diagnosis Term Computer Systems Consultant Utility Other, mixed, or unspecified nondependent drug abuse, continuous 11/30/2005 documented as of this encounter (statuses as of 09/02/2019) Resolved Problems Problem Noted Date Resolved Date Arm laceration, right, subsequent encounter 04/13/2014 04/13/2014 Syncope and collapse 02/27/2007 06/28/2014 Bipolar I disorder, most recent episode (or current) unspec ified 01/03/2007 01/23/2018 Overview: Dr. 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 11/30/2005 02/11/2018 Overview: ICD10 Diagnosis Term Computer Systems Consultant Utility documented as of this encounter (statuses as of 09/02/2019) Immunizations Name Administration Dates Next Due Hepatitis [...] Team Description Date Type Specialty Omar Clay, [address] [place] [address] [phone], Jennifer Adult Infusion Nurse 09/04/2019 Nurse Visit [place] [address] [place] [phone] 09/18/2019 Office Visit Family Medicine Giuliano Gardner, DATABASE OPERATOR [address] [place] [address] [phone] 09/23/2019 Office Visit Orthopedic Surgery Sebastian Doe MD [address] [facility] [id number] [place], [place] [address] 10/28/2019 Office Visit Pain Medicine Omar Clay, DO [address] [place] [address] [phone] 11/18/2019 Office Visit Rheumatology Day Ndiaye MD [address] [place] [address]. [place] [address] 12/08/2019 Office Visit Psychiatry Health [...] UH1-44-28 / 0 / R01HPT Bipolar Head, Charenton Uhr Bipolar BIPOLAR Right: Hip Charenton 30o68yf #Uh1-44-28 - S0 head Implanted: Qty: 1 on 09/18/2017 by Sebastian Bunn MD at [facility] 07/07/2021 1023-12 / [id number] / [id number] Cancellous Cubes, [facility] Tissue BONE Right: [facility] Services Freeze Dried 30 Cc Tissue #1023-12 - [id number] Services Implanted: Qty: 1 on 09/18/2017 by Sebastian Bunn MD at [facility] 03/08/2018 2018-40 / [id number] / [id number] Dbm Putty Maxxeus 10cc Cts #2018-40 BONE Right: Hip [facility] - [id number] Tissue Implanted: Qty: 1 on 09/18/2017 by Services Sebastian Bunn MD at [facility] 04/07/2022 1365-28-720 / 0 / [id number] Delta Ceramic Femoral Head 28mm +5 Head Right: Hip Depuy 06/21 Taper Depuy Ref#[id number] Synthes Implanted: Qty: 1 on 09/18/2017 by Sebastian Bunn MD at [facility] 03/29/2022 623-00-44F / 0 / [id number] Insert, Donal Trident 0deg 44mm Liner Right: Hip Donal #623-00-44f Implanted: Qty: 1 on 09/18/2017 by Sebastian Bunn MD at [facility] 04/24/2022 5260-5-050 / 0 / [id number] Screw Osteolock 3.[address] SCREW Right: Hip Donal Cancellous 50mm [place]on Ref#5260-5-050 Implanted: Qty: 2 on 09/18/2017 by Sebastian Bunn MD at [facility] 06/01/2022 5260-5-020 / 0 / [id number] Screw Ostelock 3.[address] SCREW Right: Hip Charenton Cancellous 20mm Donal Ref#5260-5-020 Implanted: Qty: 1 on 09/18/2017 by Sebastian Bunn MD at [facility] 06/01/2022 5260-5-016 / 0 / [id number] Screw Osteolock 3.[address] SCREW Right: Hip [place]on Cancellous 18mm Donal Ref#5260-5-016 Implanted: Qty: 1 on 09/18/2017 by Sebastian Bunn MD at [facility] 01/02/2022 509-02-60F / 0 / [id number] Shell, Donal Tritanium Revision Shell Right: Hip Ch[place]on Acetabular #509-02-60f - S0 Implanted: Qty: 1 on 09/18/2017 by Sebastian Bunn MD at [facility] documented as of this encounter Results Not on filedocumented in this encounter Insurance Type Payer Benefit Subscriber ID Effective Phone Address Plan / Dates Group Medicare Adv O [facility] [id number] 2018- MANAGED MEDICARE HEALTHCARE Present DUAL COMPLETE HMO [facility] [employer] [id number] 2018- [address] BOX SOLUTIONS H Present [address] [place] [address] Medicaid [facility] MEDICAID xxxxxxxxx 2019-P [phone] P [address] BOX OF [place] [facility] [id number] [place] [address] documented as of this encounter Advance Directives Patient Machine Heel Seat Fitter Explanation Type Date Recorded 0 Advance Directives 08/08/2013 8:00 AM and Living Will Power of Hole Digger Truck Driver 08/08/2013 8:00 AM
--- OUTSIDE RECORDS SUMMARY | 2019-12-13 15:35 | XMS REPORT | Summary of Care ---
Author Author [facility] - Health Organization [facility] - Health Address Unknown Phone Unavailable Care Team Providers Care Roll Hauler Name Role Phone Ovidio Clarke MD PCP Reason for Visit * Reason Comments Rx Concern/Question Encounter Details Care Team Description Date [place] [address] [place] [address] Rx Concern/Question 09/19/2019 [facility]phone [facility] [address] . [place] [address] Allergies Comments Active Allergy Reactions [...] Added automatically from request for jimmy solorio [id number] Cervical spondylosis with radiculopathy 01/01/2019 Overview: Added automatically from request for jimmy solorio [id number] Mixed hyperlipidemia 08/13/2018 Overview: LDL 140 07/17/2018 Left tennis elbow 06/17/2018 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 Overview: R Avulsion fracture of lateral epicondyle of humerus 0 11/14/2017 Painful patella, unspecified laterality 11/05/2017 S/P revision of total hip 09/18/2017 Colon cancer screening 05/24/2017 Overview: Added automatically from request for jimmy solorio [id number] Hematemesis with nausea 05/24/2017 Overview: Added automatically from request for jimmy solorio [id number] Nausea and vomiting, intractability of vomiting not s pecified, unspecified 05/24/2017 vomiting type Overview: Added automatically from request for jimmy solorio [id number] ANJELICA (obstructive sleep apnea) 05/10/2017 Obesity (BMI 30-39.9) 05/01/2017 Microhematuria 02/14/2017 Complex tear of medial meniscus of right knee as curr ent injury, initial 01/18/2017 encounter Overview: Added automatically from request for jimmy solorio [id number] Elevated MCV 07/25/2016 Overview: 103.4 07/22/2016 Muscle [...] 03/23/2015 [facility] screening mammogram 01/06/2015 Immunization deficiency 10/09/2014 Overview: [...] lower leg 11/25/2013 Overview: ICD10 Diagnosis [employer] Knee crepitus 11/25/2013 Genu valgum, acquired 11/25/2013 Overview: ICD10 Diagnosis [employer] Patellofemoral misalignment with pain 11/25/2013 Primary [...] 11/16/2010 Headache 04/08/2010 Overview: ICD10 Diagnosis [employer] Nonerosive nonspecific gastritis 04/08/2010 Overview: EGD Dr. Lloyd Glossitis 02/23/2010 Tobacco use disorder 02/23/2010 Menorrhagia 05/19/2009 Vision blurred 05/19/2009 Acute upper respiratory infection 08/14/2008 Overview: ICD10 Diagnosis [employer] Acute pharyngitis 08/14/2008 Screening for malignant neoplasm of cervix 9 Overview: ICD10 Diagnosis [employer] Breast screening 07/16/2008 Overview: ICD10 Diagnosis [employer] Urinary tract infection, site not specified 04/29/20 08 Backache 06/02/2007 Overview: Lower back pain ICD10 Diagnosis [employer] Pain in joint 06/02/2007 Overview: ICD10 Diagnosis [employer] Cervicalgia 06/02/2007 Myalgia and myositis 06/02/2007 Overview: Bilateral trapezius pain ICD10 Diagnosis [employer] Absence of menstruation 04/25/2007 Anemia 03/25/2007 Overview: ICD10 Diagnosis [employer] Helicobacter pylori infection 06/11/2006 Overview: ICD10 Diagnosis [employer] Acute peptic ulcer 06/11/2006 Overview: ICD10 Diagnosis [employer] Abdominal pain 04/25/2006 Overview: ICD10 Diagnosis [employer] Ankylosing spondylitis 04/25/2006 Vaginitis and vulvovaginitis 04/25/2006 Overview: ICD10 Diagnosis [employer] Other, mixed, or unspecified nondependent drug [...] eatures 11/30/2005 02/11/2018 Overview: ICD10 Diagnosis [employer] documented as of this encounter (statuses [...] Date Type Specialty Giuliano Gardner, [address] [place] [address] [phone] 09/23/2019 Office Visit Orthopedic Surgery Sebastian Doe MD [id number] [place], [place] [address] 10/28/2019 Office Visit Pain Medicine 2, Jennifer Adult Infusion Nurse 10/30/2019 Nurse Visit Infusion Therapy Omar Clay, [address] [place], [place] [address] 11/18/2019 Office [place] [address] [place] [address] 12/02/2019 Office Visit Family Medicine [...] UH1-44-28 / 0 / [id number] Bipolar Head, [place] Uhr Bipolar BIPOLAR Right: Hip Donal 34g79eo #Uh1-44-28 - S0 head Implanted: Qty: 1 on 09/18/2017 by Sebastian Bunn MD at [facility] 07/07/2021 1023-12 / [id number] / [id number] Cancellous Cubes, Community Tissue BONE Right: [facility] Freeze Dried 30 Cc Tissue #1023-12 - [id number] Services Implanted: Qty: 1 on 09/18/2017 by Sebastian Bunn MD at [facility] 03/08/2018 2018-40 / [id number] / [id number] Dbm Putty Maxxeus 10cc Cts #2018-40 BONE Right: Hip [facility] - [id number] Tissue Implanted: Qty: 1 on 09/18/2017 by Services Sebastian Bunn MD at [facility] 04/07/2022 1365-28-720 / 0 / [id number] Delta Ceramic Femoral Head 28mm +5 Head Right: Hip Depuy 06/21 Taper Depuy Ref#[id number] Synthes Implanted: Qty: 1 on 09/18/2017 by Sebastian Bunn MD at [facility] 03/29/2022 623-00-44F / 0 / [id number] Insert, Dnoal Trident 0deg 44mm Liner Right: Hip [place] #623-00-44f Implanted: Qty: 1 on 09/18/2017 by Sebastian Bunn MD at [facility] 04/24/2022 5260-5-050 / 0 / [id number] Screw Osteolock 3.[address] SCREW Right: Hip [place] Cancellous 50mm Donal Ref#[id number] Implanted: Qty: 2 on 09/18/2017 by Sebastian Bunn MD at [facility] 06/01/2022 5260-5-020 / 0 / [id number] Screw Ostelock 3.[address] SCREW Right: Hip Donal Cancellous 20mm [place] Ref#5260-5-020 Implanted: Qty: 1 on 09/18/2017 by Sebastian Bunn MD at [facility] 06/01/2022 5260-5-016 / 0 / [id number] Screw Osteolock 3.[address] SCREW Right: Hip Donal Cancellous 18mm [place] Ref#5260-5-016 Implanted: Qty: 1 on 09/18/2017 by Sebastian Bunn MD at [facility] 01/02/2022 509-02-60F / 0 / [id number] Shell, Donal Tritanium Revision Shell Right: Hip [place] Acetabular #[id number] - S0 Implanted: Qty: 1 on 09/18/2017 by Sebastian Bunn MD at [facility] documented as of this encounter Results Not on filedocumented in this encounter Visit Diagnoses Diagnosis Ankylosing spondylitis, unspecified sit e of spine Painful patella, unspecified laterality Primary localized osteoarthrosis, lower leg, unspecified laterality documented in this encounter Insurance Type Payer Benefit Subscriber ID Effective Phone Address Plan / Dates Group Medicare Adv O [facility] [id number] 2018- MANAGED MEDICARE HEALTHCARE Present DUAL COMPLETE HMO [facility] [employer] [id number] 2018- [address] SOLUT[employer] H Present [address] [place] [address] Medicaid [facility] MEDICA[facility] xxxxxxxxx 2019-P [phone] [address] [facility] [place] [facility] [address] [place] [address] documented as of this encounter Advance Directives Patient Supervisor Assembly Stock Explanation Type Date Recorded 0 Advance Directives 08/08/2013 8:00 AM and Living Will Power of Radio Machinist 08/08/2013 8:00 AM
--- OUTSIDE RECORDS SUMMARY | 2019-12-13 15:35 | XMS REPORT | Summary of Care ---
Author Author [facility] - Health Organization [facility] - Health Address Unknown Phone Unavailable Care Team Providers Care Assistant Prosecuting Attorney Name Role Phone Ovidio Clarke MD PCP Reason for Referral * Radiology Services (Routine) Referred By Contact Referred To Contact Status Reason Specialty Diagnoses / [place] [address] [place] [address] New Request Diagnostic Diagnoses Radiology Encounter for screening mammogram for malignant neoplasm of breast Screening for malignant neoplasm of breast P rocedures BI SCREENING MAMMOGRAM BILATERAL Reason for Visit * Reason Comments Refill Request Encounter Details Care Team Description Date [place] [address] [place] [address] Ankylosing spondylitis, unspecified site of spine (Primary Dx); Gastroesophageal reflux disease without esophagitis; Nonerosive nonspecific gastritis; Painful patella, unspecified laterality; Primary localized osteoarthrosis, lower leg, unspecified laterality; Muscle weakness of lower extremity; Effusion of lower leg joint; Knee crepitus, unspecified laterality; Patellofemoral instability of right knee with pain; Essential hypertension; Cervicalgia; Myofascial pain; Vaginitis and vulvovaginitis; Screening for malignant neoplasm of breast; Encounter for screening mammogram for malignant neoplasm of breast 09/18/2019 [facility] [address] [facility] [place] [address] Allergies Comments Active Allergy Reactions Severity Noted Date Aspirin Hives 03/21/2012 Sulfa (Sulfonamide Hives 11/29/2005 Antibiotics) documented as of this encounter (statuses as of 09/18/2019) Medications End Date Status Medication Sig Dispensed [...] Primary localized osteoarthrosis, lower leg, unspecified laterality 09/18/2019 Discontinued (Reorder) gabapentin 600 mg Take 1 tablet 90 tablet 6 tabletIndications: by mouth 3 9 Cervicalgia, Myofascial (three) times pain daily. 09/18/2019 Discontinued (Reorder) hydroCHLOROthiazide 25 mg Take 1 tablet 30 tablet 11 tabletIndications: by mouth 9 Essential hypertension daily. 09/18/2019 Discontinued (Reorder) metroNIDAZOLE 500 mg TK 1 T PO 0 tablet BID X 7 DAYS 9 09/18/2019 Discontinued (Reorder) cyclobenzaprine 5 mg TAKE 1 TABLET 30 tablet 5 tabletIndications: BY MOUTH 9 Ankylosing spondylitis, THREE TIMES unspecified site of spine DAILY 09/18/2019 Discontinued (Reorder) esomeprazole (NEXIUM) 40 Take 1 90 capsule 3 1 mg capsuleIndications: capsule by 9 Gastroesophageal reflux mouth daily disease without with esophagitis, Nonerosive breakfast. nonspecific gastritis TAKE ONE CAPSULE BY MOUTH EVERY MORNING WITH BREAKFAST 09/18/2019 Discontinued (Reorder) Diclofenac Sodium 1 % Apply 2 g to 100 g 0 gelIndications: Painful neck qid 0 patella, unspecified laterality, Primary localized osteoarthrosis, lower leg, unspecified laterality, Muscle weakness of lower extremity, Effusion of lower leg joint, Knee crepitus, unspecified laterality, Patellofemoral instability of right knee with pain 09/18/2019 Discontinued (Reorder) HYDROcodone-acetaminophen Take 1 tablet 120 tablet 0 10-325 mg by mouth 0 tabletIndications: every 6 (six) Ankylosing spondylitis, hours as unspecified site of needed for spine, Painful patella, Pain (scale unspecified laterality, 4-6). Primary localized osteoarthrosis, lower leg, unspecified laterality 09/18/2019 Discontinued (Reorder) HYDROcodone-acetaminophen Take 1 tablet 120 tablet 0 10-325 mg by mouth 0 tabletIndications: every 6 (six) Ankylosing spondylitis, hours as unspecified site of needed for spine, Painful patella, Pain (scale unspecified laterality, 4-6). Primary localized osteoarthrosis, lower leg, unspecified laterality documented as of this encounter (statuses as of 09/18/2019) Active Problems Problem Noted Date Essential hypertension 03/19/2019 Carpal tunnel syndrome on right 03/19/2019 Overview: EMG 02/18/2019 Special screening for malignant neoplasms, colon Overview: Added automatically from request for jimmy solorio [id number] Cervical spondylosis with radiculopathy 01/01/2019 Overview: Added automatically from request for jimmy solorio [id number] Mixed hyperlipidemia 08/13/2018 Overview: LDL 140 07/17/2018 Left tennis elbow 06/17/2018 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 Overview: R Avulsion fracture of lateral epicondyle of humerus 0 11/14/2017 Painful patella, unspecified laterality 11/05/2017 S/P revision of total hip 09/18/2017 Colon cancer screening 05/24/2017 Overview: Added automatically from request for jimmy solorio [id number] Hematemesis with nausea 05/24/2017 Overview: Added automatically from request for jimmy solorio [id number] Nausea and vomiting, intractability of vomiting not s pecified, unspecified 05/24/2017 vomiting type Overview: Added automatically from request for jimmy solorio [id number] ANJELICA (obstructive sleep apnea) 05/10/2017 Obesity (BMI 30-39.9) 05/01/2017 Microhematuria 02/14/2017 Complex tear of medial meniscus of right knee as curr ent injury, initial 01/18/2017 encounter Overview: Added automatically from request for jimmy solorio [id number] Elevated MCV 07/25/2016 Overview: 103.4 07/22/2016 Muscle [...] nodular opacitiy on chest xray at [facility] 05/22/2015 [place]atus hernia syndrome 04/09/2015 Overview: [place] [facility] [place]ogram 01/06/2015 Immunization deficiency 10/09/2014 [...] leg 11/25/2013 Overview: ICD10 Diagnosis Term Rn Cardiac Utility Knee crepitus 11/25/2013 Genu valgum, acquired 11/25/2013 Overview: ICD10 Diagnosis Term Rn Cardiac Utility Patellofemoral misalignment with pain 11/25/2013 Primary [...] Headache 04/08/2010 Overview: ICD10 Diagnosis Term Rn Cardiac Utility Nonerosive nonspecific gastritis 04/08/2010 Overview: EGD Dr. Lloyd Glossitis 02/23/2010 Tobacco use disorder 02/23/2010 Menorrhagia 05/19/2009 Vision blurred 05/19/2009 Acute upper respiratory infection 08/14/2008 Overview: ICD10 Diagnosis Term Rn Cardiac Utility Acute pharyngitis 08/14/2008 Screening for malignant neoplasm of cervix 9 Overview: ICD10 Diagnosis Term Rn Cardiac Utility Breast screening 07/16/2008 Overview: ICD10 Diagnosis Term Rn Cardiac Utility Urinary tract infection, site not specified 04/29/20 08 Backache 06/02/2007 Overview: Lower back pain ICD10 Diagnosis Term Rn Cardiac Utility Pain in joint 06/02/2007 Overview: ICD10 Diagnosis Term Rn Cardiac Utility Cervicalgia 06/02/2007 Myalgia and myositis 06/02/2007 Overview: Bilateral trapezius pain ICD10 Diagnosis Term Rn Cardiac Utility Absence of menstruation 04/25/2007 Anemia 03/25/2007 Overview: ICD10 Diagnosis Term Rn Cardiac Utility Helicobacter pylori infection 06/11/2006 Overview: ICD10 Diagnosis Term Rn Cardiac Utility Acute peptic ulcer 06/11/2006 Overview: ICD10 Diagnosis Term Rn Cardiac Utility Abdominal pain 04/25/2006 Overview: ICD10 Diagnosis Term Rn Cardiac Utility Ankylosing spondylitis 04/25/2006 Vaginitis and vulvovaginitis 04/25/2006 Overview: ICD10 Diagnosis Term Rn Cardiac Utility Other, mixed, or unspecified nondependent drug abuse, continuous 11/30/2005 documented as of this encounter (statuses as of 09/18/2019) Resolved Problems Problem Noted Date Resolved Date Arm laceration, right, subsequent encounter 04/13/2014 04/13/2014 Syncope and collapse 02/27/2007 06/28/2014 Bipolar I disorder, most recent episode (or current) unspec ified 01/03/2007 01/23/2018 Overview: Dr. 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 11/30/2005 02/11/2018 Overview: ICD10 Diagnosis Term Rn Cardiac Utility documented as of this encounter (statuses as of 09/18/2019) Immunizations Name Administration Dates Next Due Hepatitis [...] Signs Reading Time Taken Comments Vital Sign 100/60 09/18/2019 11:49 AM CDT Blood Pressure 100 09/18/2019 10:57 AM CDT Pulse - - Temperature 16 09/18/2019 10:57 AM CDT Respiratory Rate 100% 09/18/2019 10:57 AM CDT Oxygen Saturation - - Inhaled Oxygen Concentration 88 kg (193 lb 14.4 oz) 09/18/2019 10:57 AM CDT Weight 165.1 cm (5' 5") 09/18/2019 10:57 AM CDT Height 32.27 09/18/2019 10:57 AM CDT Body Mass Index documented in this encounter Progress Notes * Ovidio Clarke Jr., MD - 09/18/2019 10:30 AM CDT Chief Complaint had concerns including Refill Request. History of Present Illness Informant(s): Self We [...] concerns: Rheumatoid Arthritis and Ankylosing Spondylitis: She takes Gabapentin 600 mg TID , methotrexate 2.5 mg weekly, cyclobenzaprine 5 mg PRN, folic acid and Remicade infusion. She also uses Diclofenac Sodium 1 % gel. She gets an infusion every 8 weeks. Patient f/u regularly with rheumatology. Microbacterium [place] Complex: She is taking rifampin 300 mg twice a week, and et hambutol 400 mg 3 tablets 3 times a week. She denies any SOB. Patient reports f/ u regularly with Dr. Hogan. Patient reports difficulty with antibiotics. Schizoaffective disorder: Patient f/u regularly with psychiatry. Is not on any m edication. Patient reports only living due to her grandchildren. She feels that people keep messing with her. Tobacco Abuse: Pt is a tobacco user and smokes 1 pack every day. She is not inte rested in quitting today and understands the health concerns. GERD & Non-Erosive Gastritis: She takes Nexium 40 mg daily. Hypertension: She is taking HCTZ 25 mg daily. She denies CP, SOB, or swelling. Insomnia: Patient reports well controlled with ambien 10 mg QHS PRN. Current Medications Current Outpatient Medications Medication Sig Dispense Refill cyclobenzaprine 5 mg tablet TAKE 1 TABLET BY MOUTH THREE TIMES DAILY 30 tabl et 5 Diclofenac Sodium 1 % gel Apply 2 g to neck qid 100 g 0 esomeprazole (NEXIUM) 40 mg capsule Take 1 capsule by mouth daily with break fast. TAKE ONE CAPSULE BY MOUTH EVERY MORNING WITH BREAKFAST 90 capsule 3 gabapentin 600 mg tablet Take 1 tablet by mouth 3 (three) times daily. 90 ta blet 6 hydroCHLOROthiazide 25 mg tablet Take 1 tablet by mouth daily. 30 tablet 11 HYDROcodone-acetaminophen 10-325 mg tablet Take 1 tablet by mouth every 6 (s ix) hours as needed for Pain (scale 4-6). 120 tablet 0 metroNIDAZOLE 500 mg tablet TK 1 T PO BID X 7 DAYS 14 tablet 0 zolpidem (AMBIEN) 10 mg tablet Take 1 tablet by mouth at bedtime as needed f or Insomnia. 30 tablet 2 methotrexate 2.5 mg tablet Take by mouth TAKE 5 TABLETS BY MOUTH 1 TIME WEEK LY 60 tablet 0 foLIC acid 1 mg tablet Take 2 tablets by mouth daily. 180 tablet 3 ergocalciferol, vitamin d2, 1,250 mcg (50,000 unit) capsule Take 1 capsule b y mouth weekly for 8 doses. 8 capsule 0 LORazepam 1 mg tablet Take one tablet by mouth daily as needed for anxiety 6 tablet 0 ethambutol 400 mg tablet 3 tabs three times a week rifAMPin 300 mg capsule 2 tabs 3 x weekly ziprasidone 20 mg capsule Take 1 capsule by mouth 2 (two) times daily with m eals. 60 capsule 2 CYCLOBENZAPRINE 5 mg tablet TAKE 1 TABLET [...] up to 12 doses. 12 Packet 0 Miconazole-Skin Clnsr17 (MONISTAT 7 CREAM, APPL, [...] No current facility-administered medications for this visit. History Past Medical History: Diagnosis Date Abdominal [...] syndrome 04/09/2015 [place] [facility] [place]ization deficiency 10/09/2014 She is NOT immune [...] Right 01/06/2014 Surgeon: Girish Fountain MD; Location[facility] CERVICAL EPIDURAL STEROID INJECTION 03/26/2012 Surgeon: Maged Franklin MD PHD; Location: [facility] OR LOCATION CERVICAL EPIDURAL STEROID INJECTION N/A 01/23/2019 Surgeon: Sebastian Doe; Location: [facility] OR Location COLONOSCOPY N/A 06/22/2015 Surgeon: Arian To MD; Location: [facility] COLONOSCOPY N/A 02/17/2019 Surgeon: Ricco Hannah DO; Location: [facility] Location EGD (ENDO) 03/23/2015 [facility] ESOPHAGOGASTRODUODENOSCOPY 04/13 ulcers ESOPHAGOGASTRODUODENOSCOPY 06/15 ESOPHAGOGASTRODUODENOSCOPY 10/07/2009 mild nonerosive gastritis ESOPHAGOGASTRODUODENOSCOPY N/A 06/22/2015 Surgeon: Arian To MD; [facility] [place] ESOPHAGOGASTRODUODENOSCOPY N/A 02/17/2019 Surgeon: Ricco Hannah DO; Location: [facility] OR Location FLEXIBLE BRONCHOSCOPY 05/24/2015 Samira 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 HIP HEMIARTHROPLASTY 2001 Right KNEE ARTHROSCOPY Right 01/06/2014 Surgeon: Girish Fountain MD; Location: [facility] OPEN CARPAL TUNNEL RELEASE Right 07/15/2019 Surgeon: Zia Resendez MD; Location: [facility] Location UT ARTHRS KNE SURG W/MENISCECTOMY MED/LAT W/SHVG 01/06/2014 UT KNEE SCOPE,REMV LOOSE BODY 01/06/2014 TOTAL HIP ARTHROPLASTY REVISION Right 09/18/2017 Surgeon: Sebastian Bunn MD; Location: [facility] TUBAL LIGATION 1987 Family History Problem Relation Age of Onset [...] file Gets together: Not on file Attends restoration service: Not on file Active member of [...] nal discharge, enuresis, menstrual problem and nocturia. Skin: Negative for color change, pallor and rash. Neurological: Negative for dizziness, seizures, syncope and headaches. Psychiatric/Behavioral: Negative for confusion and dysphoric mood. Endocrine: Negative for hair loss, polydipsia, polyphagia, polyuria and weight l oss. Vitals Vitals: 09/18/19 1057 BP: 106/78 BP Location: Left arm Patient Position: Sitting BP CUFF SIZE: Adult Large Pulse: 100 Resp: 16 SpO2: 100% Weight: 193 lb 14.4 oz (88 kg) Height: 5' 5" (1.651 m) Physical Exam Physical Exam Constitutional: She is oriented to person, place, and time. She appears well-dev eloped. No distress. Obese HENT: Head: Normocephalic and atraumatic. Right Ear: External ear normal. Left Ear: External ear normal. Nose: Nose normal. Mouth/Throat: Oropharynx is clear and moist. Eyes: Pupils are equal, round, and reactive to light. Conjunctivae are normal. Cardiovascular: Normal rate, regular rhythm and normal heart sounds. Exam reveal s no gallop and no friction rub. No murmur heard. Pulmonary/Chest: Effort normal and breath sounds normal. No respiratory distress . Abdominal: Soft. Bowel sounds are normal. Musculoskeletal: Normal range of motion. Neurological: She is alert and oriented to person, place, and time. Skin: Skin is warm and dry. Nursing note and vitals reviewed. Assessment/ Plan 1. Gastroesophageal reflux disease without esophagitis 2. Nonerosive nonspecific gastritis - esomeprazole (NEXIUM) 40 mg capsule; Take 1 capsule by mouth daily with breakf ast. TAKE ONE CAPSULE BY MOUTH EVERY MORNING WITH BREAKFAST Dispense: 90 capsul e; Refill: 3 3. Ankylosing spondylitis, unspecified site of spine - cyclobenzaprine 5 mg tablet; TAKE 1 TABLET BY MOUTH THREE TIMES DAILY Dispens e: 30 tablet; Refill: 5 - HYDROcodone-acetaminophen 10-325 mg tablet; Take 1 tablet by mouth every 6 (si x) hours as needed for Pain (scale 4-6). 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 4. Painful patella, unspecified laterality - Diclofenac Sodium 1 % gel; Apply 2 g to neck qid Dispense: 100 g; Refill: 0 - HYDROcodone-acetaminophen 10-325 mg tablet; Take 1 tablet by mouth every 6 (si x) hours as needed for Pain (scale 4-6). Dispense: 120 tablet; Refill: 0 5. Primary localized osteoarthrosis, lower leg, unspecified laterality - Diclofenac Sodium 1 % gel; Apply 2 g to neck qid Dispense: 100 g; Refill: 0 - HYDROcodone-acetaminophen 10-325 mg tablet; Take 1 tablet by mouth every 6 (si x) hours as needed for Pain (scale 4-6). Dispense: 120 tablet; Refill: 0 6. Muscle weakness of lower extremity - Diclofenac Sodium 1 % gel; Apply 2 g to neck qid Dispense: 100 g; Refill: 0 7. Effusion of lower leg joint - Diclofenac Sodium 1 % gel; Apply 2 g to neck qid Dispense: 100 g; Refill: 0 8. Knee crepitus, unspecified laterality - Diclofenac Sodium 1 % gel; Apply 2 g to neck qid Dispense: 100 g; Refill: 0 9. Patellofemoral instability of right knee with pain - Diclofenac Sodium 1 % gel; Apply 2 g to neck qid Dispense: 100 g; Refill: 0 10. Essential hypertension - hydroCHLOROthiazide 25 mg tablet; Take 1 tablet by mouth daily. Dispense: 30 tablet; Refill: 11 11. Cervicalgi - gabapentin 600 mg tablet; Take 1 tablet by mouth 3 (three) times daily. Dispe nse: 90 tablet; Refill: 6 12. Myofascial pain - gabapentin 600 mg tablet; Take 1 tablet by mouth 3 (three) times daily. Dispe nse: 90 tablet; Refill: 6 13. Vaginitis and vulvovaginitis - metroNIDAZOLE 500 mg tablet; TK 1 T PO BID X 7 DAYS Dispense: 14 tablet; Ref ill: 0 Adult health maintenance and preventive care measures reviewed. All new meds reviewed with disclosure re: use, dosing, common side effects. Pt expressed understanding. AVS reviewed and given to patient at conclusion of visit. Follow Up: Three Months Scribe's Attestation Carlee, Leon Victor am scribing for, and in the presence of, Ovidio Clarke Jr, MD who performed the services described here-in. Leon Victor, September 18, 2019, 11:03 AM Physician's Attestation I, Ovidio Clarke Jr, MD, personally performed the services described in this documentation , as scribed by, Leon Victor in my presence and it is both ac curate and complete. Ovidio Clarke Jr, MD September 18, 2019, 12:37 PM documented in this encounter Plan of Treatment Care Team Description Date Type Specialty Giuliano Gardner, ALV[address] [place] [address] 09/23/2019 Office Visit Orthopedic Surgery Sebastian Doe MD [id number] [place], [place] [address] 10/28/2019 Office Visit Pain Medicine 2, Jennifer Adult Infusion Nurse 10/30/2019 Nurse Visit Infusion Therapy Omar Clay, [address] [place] [address] [phone] 11/18/2019 Office [place] [address] [place] [address] 12/02/2019 Office Visit Family Medicine Order Schedule Name Type Priority Associated Diag noses Expected: 09/18/2019, Expires: 1 BI SCREENING MAMMOGRAM IMAGING Routine Encount er for screening BILATERAL mammogram for malignant neoplasm of breast Screening for malignant neoplasm of breast Health Maintenance Due Date Last Done Comments [...] UH1-44-28 / 0 / [id number] Bipolar Head, Courtenay Uhr Bipolar BIPOLAR Right: Hip Courtenay 44q00ut #Uh1-44-28 - S0 head Implanted: Qty: 1 on 09/18/2017 by Sebastian Bunn MD at [facility] 07/07/2021 1023-12 / [id number] / [id number] Cancellous Cubes, [facility] Tissue BONE Right: Hip [facility] Services Freeze Dried 30 Cc Tissue #1023-12 - [id number] Services Implanted: Qty: 1 on 09/18/2017 by Sebastian Bunn MD at [facility] 03/08/2018 2018-40 / [id number] / [id number] Dbm Putty Maxxeus 10cc Cts #2018-40 BONE Right: Hip [facility] - [id number] Tissue Implanted: Qty: 1 on 09/18/2017 by Services Sebastian Bunn MD at [facility] 04/07/2022 1365-28-720 / 0 / [id number] Delta Ceramic Femoral Head 28mm +5 Head Right: Hip Depuy 06/21 Taper Depuy Ref#[id number] Synthes Implanted: Qty: 1 on 09/18/2017 by Sebastian Bunn MD at [facility] 03/29/2022 623-00-44F / 0 / [id number] Insert, Donal Trident 0deg 44mm Liner Right: Hip Courtenay #[id number] Implanted: Qty: 1 on 09/18/2017 by Sebastian Bunn MD at [facility] 04/24/2022 5260-5-050 / 0 / [id number] Screw Osteolock 3.[address] SCREW Right: Hip Donal Cancellous 50mm Donal Ref#[id number] Implanted: Qty: 2 on 09/18/2017 by Sebastian Bunn MD at [facility] 06/01/2022 5260-5-020 / 0 / [id number] Screw Ostelock 3.[address] SCREW Right: Hip Donal Cancellous 20mm Courtenay Ref#[id number] Implanted: Qty: 1 on 09/18/2017 by Sebastian Bunn MD at [facility] 06/01/2022 5260-5-016 / 0 / [id number] Screw Osteolock 3.[address] SCREW Right: Hip Donal Cancellous 18mm Donal Ref#[id number] Implanted: Qty: 1 on 09/18/2017 by Sebastian Bunn MD at [facility] 01/02/2022 509-02-60F / 0 / [id number] Shell, Donal Tritanium Revision Shell Right: Hip Donal Acetabular #[id number] - S0 Implanted: Qty: 1 on 09/18/2017 by Sebastian Bunn MD at [facility] documented as of this encounter Results Not on filedocumented in this encounter Visit Diagnoses Diagnosis Ankylosing spondylitis, unspecified sit e of spine - Primary Gastroesophageal reflux disease without esophagitis Esophageal reflux Nonerosive nonspecific gastritis Unspecified gastritis and gastroduodeni tis without mention of hemorrhage Painful patella, unspecified laterality Primary localized osteoarthrosis, lower leg, unspecified laterality Muscle weakness of lower extremity Muscle weakness (generalized) Effusion of lower leg joint Knee crepitus, unspecified laterality Patellofemoral instability of right kne e with pain Essential hypertension Unspecified essential hypertension Cervicalgia Myofascial pain Mylagia and myositis, unspecified Vaginitis and vulvovaginitis Vaginitis and vulvovaginitis, unspecifi ed Screening for malignant neoplasm of baron ast Breast screening, unspecified Encounter for screening mammogram for m alignant neoplasm of breast Other screening mammogram documented in this encounter Insurance Type Payer Benefit Subscriber ID Effective Phone Address Plan / Dates Group Medicare Adv [facility] [id number] 2018- MANAGED MEDICARE HEALTHCARE Present DUAL COMPLETE O Medicaid [facility] MEDICAID xxxxxxxxx 2019-P [phone] 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
--- OUTSIDE RECORDS SUMMARY | 2019-12-13 15:35 | XMS REPORT | Summary of Care ---
Author Author [facility] - Health Organization [facility] - Health Address Unknown Phone Unavailable Care Team Providers Care Configuration Management Analyst Name Role Phone Ovidio Clarke MD PCP Reason for Referral * Radiology Services (Routine) Referred By Contact Referred To Contact Status Reason Specialty Diagnoses / [place] [address] [place] [address] New Request Diagnostic Diagnoses Radiology Encounter for screening mammogram for malignant neoplasm of breast Screening for malignant neoplasm of breast P rocedures BI SCREENING MAMMOGRAM BILATERAL Reason for Visit * Reason Comments Refill Request Encounter Details Care Team Description Date [place] [address] [place] [address] Ankylosing spondylitis, unspecified site of [...] malignant neoplasm of breast 09/18/2019 [facility] [address] [facility] [place] [address] Allergies Comments Active Allergy Reactions [...] Added automatically from request for jimmy solorio [id number] Cervical spondylosis with radiculopathy 01/01/2019 Overview: Added automatically from request for jimmy solorio [id number] Mixed hyperlipidemia 08/13/2018 Overview: LDL 140 07/17/2018 Left tennis elbow 06/17/2018 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 Overview: R Avulsion fracture of lateral epicondyle of humerus 0 11/14/2017 Painful patella, unspecified laterality 11/05/2017 S/P revision of total hip 09/18/2017 Colon cancer screening 05/24/2017 Overview: Added automatically from request for jimmy solorio [id number] Hematemesis with nausea 05/24/2017 Overview: Added automatically from request for jimmy solorio [id number] Nausea and vomiting, intractability of vomiting not s pecified, unspecified 05/24/2017 vomiting type Overview: Added automatically from request for jimmy solorio [id number] ANJELICA (obstructive sleep apnea) 05/10/2017 Obesity (BMI 30-39.9) 05/01/2017 Microhematuria 02/14/2017 Complex tear of medial meniscus of right knee as curr ent injury, initial 01/18/2017 encounter Overview: Added automatically from request for jimmy solorio [id number] Elevated MCV 07/25/2016 Overview: 103.4 07/22/2016 Muscle [...] lobe nodular opacitiy on chest xray at [facility] 05/22/2015 Hiatus hernia syndrome 04/09/2015 Overview: EGD 03/23/2015 [facility] Other screening mammogram 01/06/2015 Immunization [...] lower leg 11/25/2013 Overview: ICD10 Diagnosis Term Log Snaker Utility Knee crepitus 11/25/2013 Genu valgum, acquired 11/25/2013 Overview: ICD10 Diagnosis Term Log Snaker Utility Patellofemoral misalignment with pain 11/25/2013 Primary [...] 11/16/2010 Headache 04/08/2010 Overview: ICD10 Diagnosis Term Log Snaker Utility Nonerosive nonspecific gastritis 04/08/2010 Overview: EGD Dr. Lloyd Glossitis 02/23/2010 Tobacco use disorder 02/23/2010 Menorrhagia 05/19/2009 Vision blurred 05/19/2009 Acute upper respiratory infection 08/14/2008 Overview: ICD10 Diagnosis Term Log Snaker Utility Acute pharyngitis 08/14/2008 Screening for malignant neoplasm of cervix 9 Overview: ICD10 Diagnosis Term Log Snaker Utility Breast screening 07/16/2008 Overview: ICD10 Diagnosis Term Log Snaker Utility Urinary tract infection, site not specified 04/29/20 08 Backache 06/02/2007 Overview: Lower back pain ICD10 Diagnosis Term Log Snaker Utility Pain in joint 06/02/2007 Overview: ICD10 Diagnosis Term Log Snaker Utility Cervicalgia 06/02/2007 Myalgia and myositis 06/02/2007 Overview: Bilateral trapezius pain ICD10 Diagnosis Term Log Snaker Utility Absence of menstruation 04/25/2007 Anemia 03/25/2007 Overview: ICD10 Diagnosis Term Log Snaker Utility Helicobacter pylori infection 06/11/2006 Overview: ICD10 Diagnosis Term Log Snaker Utility Acute peptic ulcer 06/11/2006 Overview: ICD10 Diagnosis Term Log Snaker Utility Abdominal pain 04/25/2006 Overview: ICD10 Diagnosis Term Log Snaker Utility Ankylosing spondylitis 04/25/2006 Vaginitis and vulvovaginitis 04/25/2006 Overview: ICD10 Diagnosis Term Log Snaker Utility Other, mixed, or unspecified nondependent drug [...] eatures 11/30/2005 02/11/2018 Overview: ICD10 Diagnosis Term Log Snaker Utility documented as of this encounter (statuses [...] weeks. Patient f/u regularly with rheumatology. Microbacterium [place] Complex: She is taking rifampin 300 mg [...] Right 01/06/2014 Surgeon: Girish Fountain MD; Location: [facility] OR LOCATION CERVICAL EPIDURAL STEROID INJECTION 03/26/2012 Surgeon: Maged Franklin MD PHD; Location: [facility] OR LOCATION CERVICAL EPIDURAL STEROID INJECTION N/A 01/23/2019 Surgeon: Sebastian Doe; Location: [facility] COLONOSCOPY N/A 06/22/2015 Surgeon: Arian To MD; Location: [facility] COLONOSCOPY N/A 02/17/2019 Surgeon: Ricco Hannah DO; Location: [facility] EGD (ENDO) 03/23/2015 [facility] ESOPHAGOGASTRODUODENOSCOPY 04/13 ulcers ESOPHAGOGASTRODUODENOSCOPY 06/15 ESOPHAGOGASTRODUODENOSCOPY 10/07/2009 mild nonerosive gastritis ESOPHAGOGASTRODUODENOSCOPY N/A 06/22/2015 Surgeon: Arian To MD; Location[facility] [place] ESOPHAGOGASTRODUODENOSCOPY N/A 02/17/2019 Surgeon: Ricco Hannah DO; Location: [facility] Location FLEXIBLE BRONCHOSCOPY 05/24/2015 [facility] 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 HIP HEMIARTHROPLASTY 2001 Right KNEE ARTHROSCOPY Right 01/06/2014 Surgeon: Girish Fountain MD; Location: [facility] OPEN CARPAL TUNNEL RELEASE Right 07/15/2019 Surgeon: Zia Resendez MD; Location: [facility] Location ID ARTHRS KNE SURG W/MENISCECTOMY MED/LAT W/SHVG 01/06/2014 ID KNEE SCOPE,REMV LOOSE BODY 01/06/2014 TOTAL HIP ARTHROPLASTY REVISION Right 09/18/2017 Surgeon: Sebastian Bunn MD; Location: [facility] TUBAL LIGATION 1987 Family History Problem Relation [...] file Gets together: Not on file Attends oriental orthodox service: Not on file Active member of [...] (scale 4-6). 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 4. Painful patella, [...] Type Specialty Giuliano Gardner, ALV[place] [address] [place] [address] 09/23/2019 Office Visit Orthopedic Surgery Sebastian Doe MD [id number] [place], [place] [address] 10/28/2019 Office Visit Pain Medicine 2, Jennifer Adult Infusion Nurse 10/30/2019 Nurse Visit Infusion Therapy Omar Clay, [address] [place] [address] [phone] 11/18/2019 Office [place] [address] [place] [address] 12/02/2019 Office Visit Family Medicine [...] UH1-44-28 / 0 / R01HPT Bipolar Head, [place] Uhr Bipolar BIPOLAR Right: Hip [place] 41h90al #Uh1-44-28 - S0 head Implanted: Qty: 1 on 09/18/2017 by Sebastian Bunn MD at [facility] 07/07/2021 1023-12 / [id number] / [id number] Cancellous Cubes, [facility] Tissue BONE Right: Hip [facility] Services Freeze Dried 30 Cc Tissue #1023-12 - [id number] Services Implanted: Qty: 1 on 09/18/2017 by Sebastian Bunn MD at [facility] 03/08/2018 2018-40 / [id number] / [id number] Dbm Putty Maxxeus 10cc Cts #2018-40 BONE Right: Hip [facility] - [id number] Tissue Implanted: Qty: 1 on 09/18/2017 by Services Sebastian Bunn MD at [facility] 04/07/2022 1365-28-720 / 0 / [id number] Delta Ceramic Femoral Head 28mm +5 Head Right: Hip Depuy 06/21 Taper Depuy Ref#[id number] Synthes Implanted: Qty: 1 on 09/18/2017 by Sebastian Bunn MD at [facility] 03/29/2022 623-00-44F / 0 / [id number] Insert, Donal Trident 0deg 44mm Liner Right: Hip [place] #623-00-44f Implanted: Qty: 1 on 09/18/2017 by Sebastian Bunn MD at [facility] 04/24/2022 5260-5-050 / 0 / [id number] Screw Osteolock 3.[address] SCREW Right: Hip Donal Cancellous 50mm Donal Ref#[id number] Implanted: Qty: 2 on 09/18/2017 by Sebastian Bunn MD at [facility] 06/01/2022 5260-5-020 / 0 / [id number] Screw Ostelock 3.[address] SCREW Right: Hip Donal Cancellous 20mm [place] Ref#[id number] Implanted: Qty: 1 on 09/18/2017 by Sebastian Bunn MD at [facility] 06/01/2022 5260-5-016 / 0 / [id number] Screw Osteolock 3.[address] SCREW Right: Hip Donal Cancellous 18mm Donal Ref#[id number] Implanted: Qty: 1 on 09/18/2017 by Sebastian Bunn MD at [facility] 01/02/2022 509-02-60F / 0 / [id number] Shell, Donal Tritanium Revision Shell Right: Hip Donal Acetabular #509-02-60f - S0 Implanted: Qty: 1 on 09/18/2017 by Sebastian Bunn MD at [facility] documented as of this encounter Results [...] Plan / Dates Group Medicare Adv O [employer] [facility] [id number] 2018- MANAGED MEDICARE HEALTHCARE Present DUAL COMPLETE O Medicaid [facility] MEDICAID xxxxxxxxx 2019-P [phone] [address] [facility] [id number] [place] [address] ([place]) [place] [address] documented as of this encounter Advance Directives Patient Medical Record Technician Explanation Type Date Recorded 0 Advance Directives 08/08/2013 8:00 AM and Living Will Power of Paginator 08/08/2013 8:00 AM
--- OUTSIDE RECORDS SUMMARY | 2019-12-13 15:36 | XMS REPORT | Summary of Care ---
Author Author [facility] - Health Organization [facility] - Health Address Unknown Phone Unavailable Care Team Providers Care Medical Staff Assistant Name Role Phone Ovidio Clarke MD PCP Reason for Visit * Reason Comments Follow-up right hand Encounter Details Care Team Description Date Type Department Jay-Kellee, Giuliano, BEE ROBBER [address] [place] [address] [phone] Vitamin D deficiency (Primary Dx); Postmenopausal bone loss; Cervical radiculopathy; Ankylosing spondylitis of multiple sites in spine 09/23/2019 Office Visit [facility] [address] [place] [phone] Allergies Comments Active Allergy Reactions Severity Noted Date Aspirin Hives 03/21/2012 Sulfa (Sulfonamide Hives 11/29/2005 Antibiotics) documented as of this encounter (statuses as of 09/24/2019) Medications End Date Status Medication Sig Dispensed [...] Anxiety mouth daily as needed for anxiety Active foLIC acid 1 mg Take 2 [...] localized osteoarthrosis, lower leg, unspecified laterality Active HYDROcodone-acetaminophen Take 1 tablet 120 tablet 0 10-325 mg by mouth 0 tabletIndications: every 6 (six) Ankylosing spondylitis, hours as unspecified site of needed for spine, Painful patella, Pain (scale unspecified laterality, 4-6). Primary localized osteoarthrosis, lower leg, unspecified laterality Active ergocalciferol, vitamin Take 1 8 capsule 0 d2, 1,250 mcg (50,000 capsule by 0 unit) capsuleIndications: mouth weekly. Postmenopausal bone loss 09/23/2019 Discontinued (Reorder) ergocalciferol, vitamin Take 1 8 capsule 0 d2, 1,250 mcg (50,000 capsule by 0 unit) capsuleIndications: mouth weekly Postmenopausal bone loss for 8 doses. 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 Overview: R Avulsion fracture of lateral epicondyle of humerus 0 11/14/2017 Painful patella, unspecified laterality 11/05/2017 S/P revision of total hip 09/18/2017 Colon cancer screening 05/24/2017 Overview: Added automatically from request for jimmy solorio [id number] Hematemesis with nausea 05/24/2017 Overview: Added automatically from request for jimmy solorio [id number] Nausea and vomiting, intractability of vomiting not s pecified, unspecified 05/24/2017 vomiting type Overview: Added automatically from request for jimmy solorio [id number] ANJELICA (obstructive sleep apnea) 05/10/2017 Obesity (BMI 30-39.9) 05/01/2017 Microhematuria 02/14/2017 Complex tear of medial meniscus of right knee as curr ent injury, initial 01/18/2017 encounter Overview: Added automatically from request for jimmy solorio [id number] Elevated MCV 07/25/2016 Overview: 103.4 07/22/2016 Muscle [...] Hiatus hernia syndrome 04/09/2015 Overview: EGD 03/23/2015 [facility] screening mammogram 01/06/2015 Immunization deficiency 10/09/2014 Overview: [...] lower leg 11/25/2013 Overview: ICD10 Diagnosis Term Site Manager Utility Knee crepitus 11/25/2013 Genu valgum, acquired 11/25/2013 Overview: ICD10 Diagnosis Term Site Manager Utility Patellofemoral misalignment with pain 11/25/2013 [...] 11/16/2010 Headache 04/08/2010 Overview: ICD10 Diagnosis Term Site Manager Utility Nonerosive nonspecific gastritis 04/08/2010 Overview: EGD Dr. Lloyd Glossitis 02/23/2010 Tobacco use disorder 02/23/2010 Menorrhagia 05/19/2009 Vision blurred 05/19/2009 Acute upper respiratory infection 08/14/2008 Overview: ICD10 Diagnosis Term Site Manager Utility Acute pharyngitis 08/14/2008 Screening for malignant neoplasm of cervix 9 Overview: ICD10 Diagnosis Term Site Manager Utility Breast screening 07/16/2008 Overview: ICD10 Diagnosis Term Site Manager Utility Urinary tract infection, site not specified 04/29/20 08 Backache 06/02/2007 Overview: Lower back pain ICD10 Diagnosis Term Site Manager Utility Pain in joint 06/02/2007 Overview: ICD10 Diagnosis Term Site Manager Utility Cervicalgia 06/02/2007 Myalgia and myositis 06/02/2007 Overview: Bilateral trapezius pain ICD10 Diagnosis Term Site Manager Utility Absence of menstruation 04/25/2007 Anemia 03/25/2007 Overview: ICD10 Diagnosis Term Site Manager Utility Helicobacter pylori infection 06/11/2006 Overview: ICD10 Diagnosis Term Site Manager Utility Acute peptic ulcer 06/11/2006 Overview: ICD10 Diagnosis Term Site Manager Utility Abdominal pain 04/25/2006 Overview: ICD10 Diagnosis Term Site Manager Utility Ankylosing spondylitis 04/25/2006 Vaginitis and vulvovaginitis 04/25/2006 Overview: ICD10 Diagnosis Term Site Manager Utility Other, mixed, or unspecified nondependent drug abuse, continuous 11/30/2005 documented as of this encounter (statuses as of 09/24/2019) Resolved Problems Problem Noted Date Resolved Date Arm laceration, right, subsequent encounter 04/13/2014 04/13/2014 Syncope and collapse 02/27/2007 06/28/2014 Bipolar I disorder, most recent episode (or current) unspec ified 01/03/2007 01/23/2018 Overview: Dr. 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 11/30/2005 02/11/2018 Overview: ICD10 Diagnosis Term Site Manager Utility documented as of this encounter (statuses as of 09/24/2019) Immunizations Name Administration Dates Next Due Hepatitis [...] - - Blood Pressure - - Pulse 36.5 C (97.7 F) 09/23/2019 1:16 PM CDT Temperature - - Respiratory Rate - - Oxygen Saturation - - Inhaled Oxygen Concentration 87.4 kg (192 lb 11.2 oz) 09/23/2019 1:16 PM CDT Weight 165.1 cm (5' 5") 09/23/2019 1:16 PM CDT Height 32.07 09/23/2019 1:16 PM CDT Body Mass Index documented in this encounter Progress Notes * Giuliano Gardner FNP - 09/23/2019 1:30 PM CDT Ortho Spine Clinic Note CC: neck pain HPI History of Present Illness: Juan Tinoco is a 53 year old female coming in [facility] with chief complaint of neck. This has [...] and started Remicade infusion from Jun 2019. Interval Hx 09/23/2019 :Juan Tinoco is a 53 year old female for the follow up with the Osteoporosis,advised to do her DEXA which she did not and didn't picket [employer] the prescribed vit D2 from her pharmacy. Allergies Allergies Allergen Reactions Aspirin Hives Sulfa [...] 04/09/2015 EGD 03/23/2015 [facility] Immunization deficiency 10/09/2014 She is [...] Right 01/06/2014 Surgeon: Girish Fountain MD; Location: [facility] OR LOCATION ARTHROSCOPIC MENISCAL REPAIR Right 01/06/2014 Surgeon: Girish Fountain MD; Location: [facility] OR LOCATION CERVICAL EPIDURAL STEROID INJECTION 03/26/2012 Surgeon: Maged Franklin MD PHD; [facility] OR LOCATION CERVICAL EPIDURAL STEROID INJECTION N/A 01/23/2019 Surgeon: Sebastian Doe; Location: [facility] Location COLONOSCOPY N/A 06/22/2015 Surgeon: Arian To MD; [facility] COLONOSCOPY N/A 02/17/2019 Surgeon: Ricco Hannah DO; Location: [facility] Location EGD (ENDO) 03/23/2015 [facility] ESOPHAGOGASTRODUODENOSCOPY 04/13 ulcers ESOPHAGOGASTRODUODENOSCOPY 06/15 ESOPHAGOGASTRODUODENOSCOPY 10/07/2009 mild nonerosive gastritis ESOPHAGOGASTRODUODENOSCOPY N/A 06/22/2015 Surgeon: Arian To MD; [facility] [facility] OR LOCATION ESOPHAGOGASTRODUODENOSCOPY N/A 02/17/2019 Surgeon: Ricco Hannah DO; Location: [facility] OR Location FLEXIBLE BRONCHOSCOPY 05/24/2015 Samira, 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 HIP HEMIARTHROPLASTY 2001 Right KNEE ARTHROSCOPY Right 01/06/2014 Surgeon: Girish Fountain MD; Location: [facility] OPEN CARPAL TUNNEL RELEASE Right 07/15/2019 Surgeon: Zia Resendez MD; Location: [facility] [place] [facility] [place] ARTHRS KNE SURG W/MENISCECTOMY MED/LAT W/SHVG 01/06/2014 [place] KNEE SCOPE,REMV LOOSE BODY 01/06/2014 TOTAL HIP ARTHROPLASTY REVISION Right 09/18/2017 Surgeon: Sebastian Bunn MD; Location: [facility] OR Location TUBAL LIGATION 1988 ROS Constitutional: negative Eyes: negative Ears: negative Nose/Sinuses: negative Mouth/Throat: negative Cardiovascular: negative Respiratory: negative Gastrointestinal: negative Genitourinary: negative Endocrine: negative Musculoskeletal: as per HPI Integumentary: negative Neurological: negative Physical Examination Temp 36.5 C (97.7 F) (Temporal Artery) | Ht 65" (165.1 cm) | Wt 87.4 kg (1 92 lb 11.2 oz) | LMP 11/08/2009 | BMI 32.07 kg/m Neck: Skin: benign ROM: Full TTP: [...] female with right carpal tunnel release 0. Plan:-Ordered DEXA and REVIEWED labs. -Referred to OT for the post op rehab. -Continue Gabapentin and muscle relaxer. -Rx vit d2 50,000 IU sent to pharmacy for 8 weeks. -Advise to do her DEXA and will call her after DEXA.-does has and takes Remic wang infusion can cause low BMD. -Advised to continue with pain management for cervicalgia -SHANI. ALVIN Kelly. Orthopedics surgery. T documented in this encounter Plan of Treatment Care Team Description Date [place] [address] [place] [address] 10/06/2019 Appointment Radiology Giuliano Gardner FNP [address] [place], [place] [address] 10/06/2019 Appointment Radiology Giuliano Gardner, ALV[place] [address] [place], [place] [address] 10/06/2019 Appointment Radiology Sebastian Doe MD [id number] [place], [place] [address] 10/28/2019 Office Visit Pain Medicine 2, Jennifer Adult Infusion Nurse 10/30/2019 Nurse Visit Infusion Therapy Omar Clay, [address] [place] [address] [phone] 11/18/2019 Office [place] [address] [place] [address] [phone] 12/02/2019 Office Visit Family Medicine Order Schedule Name Type Priority Associated Diag noses Expected: 10/07/2019, Expires: 1 VITAMIN D, 25-OH LAB Routine Vitamin D def iciency Health Maintenance Due Date Last Done Comments [...] UH1-44-28 / 0 / R01HPT Bipolar Head, [place] Uhr Bipolar BIPOLAR Right: Hip Donal 40g76wo #Uh1-44-28 - S0 head Implanted: Qty: 1 on 09/18/2017 by Sebastian Bunn MD at [facility] 07/07/2021 1023-12 / [id number] / [id number] Cancellous Cubes, [facility] Tissue BONE Right: Hip [facility] Freeze Dried 30 Cc Tissue #1023-12 - [id number] Services Implanted: Qty: 1 on 09/18/2017 by Sebastian Bunn MD at [facility] 03/08/2018 2018-40 / [id number] / [id number] Dbm Putty Maxxeus 10 Cts #2018-40 BONE Right: Hip [facility] [id number] Tissue Implanted: Qty: 1 on 09/18/2017 by Services Sebastian Bunn MD at [facility] 04/07/2022 1365-28-720 / 0 / [id number] Delta Ceramic Femoral Head 28mm +5 Head Right: Hip Depuy 06/21 Taper Depuy Ref#[id number] Synthes Implanted: Qty: 1 on 09/18/2017 by Sebastian Bunn MD at [facility] 03/29/2022 623-00-44F / 0 / [id number] Insert, Donal Trident 0deg 44mm Liner Right: Hip [place] #623-00-44f Implanted: Qty: 1 on 09/18/2017 by Sebastian Bunn MD at [facility] 04/24/2022 5260-5-050 / 0 / [id number] Screw Osteolock 3.[address] SCREW Right: Hip Donal Cancellous 50mm [place] Ref#[id number] Implanted: Qty: 2 on 09/18/2017 by Sebastian Bunn MD at [facility] 06/01/2022 5260-5-020 / 0 / [id number] Screw Ostelock 3.[address] SCREW Right: Hip Donal Cancellous 20mm Donal Ref#[id number] Implanted: Qty: 1 on 09/18/2017 by Sebastian Bunn MD at [facility] 06/01/2022 5260-5-016 / 0 / [id number] Screw Osteolock 3.[address] SCREW Right: Hip Donal Cancellous 18mm Donal Ref#[id number] Implanted: Qty: 1 on 09/18/2017 by Sebastian Bunn MD at [facility] 01/02/2022 509-02-60F / 0 / [id number] Shell, Donal Tritanium Revision Shell Right: Hip Donal Acetabular #509-02-60f - S0 Implanted: Qty: 1 on 09/18/2017 by Sebastian Bunn MD at [facility] documented as of this encounter Results Not on filedocumented in this encounter Visit Diagnoses Diagnosis Vitamin D deficiency - Primary Unspecified vitamin D deficiency Postmenopausal bone loss Senile osteoporosis Cervical radiculopathy Brachial neuritis or radiculitis nos Ankylosing spondylitis of multiple site s in spine Ankylosing spondylitis documented in this encounter Insurance Type Payer Benefit Subscriber ID Effective Phone Address Plan / Dates Group Medicare Adv O [facility] [id number] 2018- MANAGED MEDICARE HEALTHCARE Present DUAL COMPLETE HMO Medicaid [facility] MEDICAID xxxxxxxxx 2019-P [phone] P O [facility] [id number] [place] [address] documented as of this encounter 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
--- OUTSIDE RECORDS SUMMARY | 2019-12-13 15:36 | XMS REPORT | Summary of Care ---
Author Author [facility] - Health Organization [facility] - Health Address Unknown Phone Unavailable Care Team Providers Care Experience Planning Strategist Name Role Phone Ovidio Clarke MD PCP Reason for Visit * Reason Comments Assessment Encounter Details Care Team Description Date [place] [address] [place] [address] Assessment 10/07/2019 [facility]phone [facility] [address] [place] [address] Allergies Comments Active Allergy Reactions Severity Noted Date Aspirin Hives 03/21/2012 Sulfa (Sulfonamide Hives 11/29/2005 Antibiotics) documented as of this encounter (statuses as of 10/08/2019) Medications End Date Status Medication Sig Dispensed [...] unit) capsuleIndications: mouth weekly. Postmenopausal bone loss documented as of this encounter (statuses as of 10/08/2019) Active Problems Problem Noted Date Acute vaginitis 10/08/2019 Essential hypertension 03/19/2019 Carpal tunnel syndrome on right 03/19/2019 Overview: EMG 02/18/2019 Special screening for malignant neoplasms, colon Overview: Added automatically from request for jimmy solorio [id number] Cervical spondylosis with radiculopathy 01/01/2019 Overview: Added automatically from request for jimmy solorio [id number] Mixed hyperlipidemia 08/13/2018 Overview: LDL 140 07/17/2018 Left tennis elbow 06/17/2018 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 Overview: R Avulsion fracture of lateral epicondyle of humerus 0 11/14/2017 Painful patella, unspecified laterality 11/05/2017 S/P revision of total hip 09/18/2017 Colon cancer screening 05/24/2017 Overview: Added automatically from request for jimmy solorio [id number] Hematemesis with nausea 05/24/2017 Overview: Added automatically from request for jimmy solorio [id number] Nausea and vomiting, intractability of vomiting not s pecified, unspecified 05/24/2017 vomiting type Overview: Added automatically from request for jimmy solorio [id number] ANJELICA (obstructive sleep apnea) 05/10/2017 Obesity (BMI 30-39.9) 05/01/2017 Microhematuria 02/14/2017 Complex tear of medial meniscus of right knee as curr ent injury, initial 01/18/2017 encounter Overview: Added automatically from request for jimmy solorio [id number] Elevated MCV 07/25/2016 Overview: 103.4 07/22/2016 Muscle [...] on chest xray at [facility] 05/22/2015 Hiatus hernia syndrome 04/09/2015 Overview: EGD [...] lower leg 11/25/2013 Overview: ICD10 Diagnosis Term Tile Conduit Layer Utility Knee crepitus 11/25/2013 Genu valgum, acquired 11/25/2013 Overview: ICD10 Diagnosis Term Tile Conduit Layer Utility Patellofemoral misalignment with pain 11/25/2013 Primary [...] 11/16/2010 Headache 04/08/2010 Overview: ICD10 Diagnosis Term Tile Conduit Layer Utility Nonerosive nonspecific gastritis 04/08/2010 Overview: EGD Dr. Lloyd Glossitis 02/23/2010 Tobacco use disorder 02/23/2010 Menorrhagia 05/19/2009 Vision blurred 05/19/2009 Acute upper respiratory infection 08/14/2008 Overview: ICD10 Diagnosis Term Tile Conduit Layer Utility Acute pharyngitis 08/14/2008 Screening for malignant neoplasm of cervix 9 Overview: ICD10 Diagnosis Term Tile Conduit Layer Utility Breast screening 07/16/2008 Overview: ICD10 Diagnosis Term Tile Conduit Layer Utility Urinary tract infection, site not specified 04/29/20 08 Backache 06/02/2007 Overview: Lower back pain ICD10 Diagnosis Term Tile Conduit Layer Utility Pain in joint 06/02/2007 Overview: ICD10 Diagnosis Term Tile Conduit Layer Utility Cervicalgia 06/02/2007 Myalgia and myositis 06/02/2007 Overview: Bilateral trapezius pain ICD10 Diagnosis Term Tile Conduit Layer Utility Absence of menstruation 04/25/2007 Anemia 03/25/2007 Overview: ICD10 Diagnosis Term Tile Conduit Layer Utility Helicobacter pylori infection 06/11/2006 Overview: ICD10 Diagnosis Term Tile Conduit Layer Utility Acute peptic ulcer 06/11/2006 Overview: ICD10 Diagnosis Term Tile Conduit Layer Utility Abdominal pain 04/25/2006 Overview: ICD10 Diagnosis Term Tile Conduit Layer Utility Ankylosing spondylitis 04/25/2006 Vaginitis and vulvovaginitis 04/25/2006 Overview: ICD10 Diagnosis Term Tile Conduit Layer Utility Other, mixed, or unspecified nondependent drug abuse, continuous 11/30/2005 documented as of this encounter (statuses as of 10/08/2019) Resolved Problems Problem Noted Date Resolved Date Arm laceration, right, subsequent encounter 04/13/2014 04/13/2014 Syncope and collapse 02/27/2007 06/28/2014 Bipolar I disorder, most recent episode (or current) unspec ified 01/03/2007 01/23/2018 Overview: Dr. 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 11/30/2005 02/11/2018 Overview: ICD10 Diagnosis Term Tile Conduit Layer Utility documented as of this encounter (statuses as of 10/08/2019) Immunizations Name Administration Dates Next Due Hepatitis [...] of Treatment Care Team Description Date Type Schedule AnalystSebastian Doe MD [id number] [place] [address] [phone] 10/28/2019 Telemedicine Pain Medicine Visit 2, Jennifer Adult Infusion Nurse 10/30/2019 Nurse Visit Infusion Therapy Omar Clay, DO [address] [place] [address] [phone] 11/18/2019 Office [place] [address] [place] [address] 12/02/2019 Office Visit [place] [address] [place] [address] 01/16/2020 Appointment Radiology Giuliano Gardner, BROOMCORN THRESHER [address] [place] [address] [phone] 01/16/2020 Appointment Radiology Health Maintenance Due Date Last Done Comments [...] UH1-44-28 / 0 / R01HPT Bipolar Head, [place]ips[place] Uhr Bipolar BIPOLAR Right: Hip [place] 65x48lm #Uh1-44-28 - S0 head Implanted: Qty: 1 on 09/18/2017 by Sebastian Bunn MD at [facility] 07/07/2021 1023-12 / [id number] / [id number] Cancellous Cubes, Community Tissue BONE Right: Hip [facility] Services Freeze Dried 30 Cc Tissue #1023-12 - [id number] Services Implanted: Qty: 1 on 09/18/2017 by Sebastian Bunn MD at [facility] 03/08/2018 2018-40 / [id number] / [id number] Dbm Putty Maxxeus 10cc Cts #2018-40 BONE Right: Hip [facility] - [id number] Tissue Implanted: Qty: 1 on 09/18/2017 by Services Sebastian Bunn MD at [facility] 04/07/2022 1365-28-720 / 0 / [id number] Delta Ceramic Femoral Head 28mm +5 Head Right: Hip Depuy 06/21 Taper Depuy Ref#[id number] Synthes Implanted: Qty: 1 on 09/18/2017 by Sebastian Bunn MD at [facility] 03/29/2022 623-00-44F / 0 / [id number] Insert, Donal Trident 0deg 44mm Liner Right: Hip [place] #623-00-44f Implanted: Qty: 1 on 09/18/2017 by Sebastian Bunn MD at [facility] 04/24/2022 5260-5-050 / 0 / [id number] Screw Osteolock [address] SCREW Right: Hip [place] Cancellous 50mm Donal Ref#[id number] Implanted: Qty: 2 on 09/18/2017 by Sebastian Bunn MD at [facility] 06/01/2022 5260-5-020 / 0 / [id number] Screw Ostelock 3.[address] SCREW Right: Hip Donal Cancellous 20mm [place] Ref#[id number] Implanted: Qty: 1 on 09/18/2017 by Sebastian Bunn MD at [facility] 06/01/2022 5260-5-016 / 0 / [id number] Screw Osteolock 3.[address] SCREW Right: Hip [place] Cancellous 18mm [place] Ref#5260-5-016 Implanted: Qty: 1 on 09/18/2017 by Sebastian Bunn MD at [facility] 01/02/2022 509-02-60F / 0 / [id number] Shell, Donal Tritanium Revision Shell Right: Hip [place] Acetabular #509-02-60f - S0 Implanted: Qty: 1 on 09/18/2017 by Sebastian Bunn MD at [facility] documented as of this encounter Results Not on filedocumented in this encounter Insurance Type Payer Benefit Subscriber ID Effective Phone Address Plan / Dates Group Medicare Adv HMO [facility] [id number] 2018- MANAGED MEDICARE HEALTHCARE Present DUAL COMPLETE HMO [facility] [id number] 2018- P [address] BOX SOLUTIONS H Present [address] [place] [address] Medicaid [place] MED[place] xxxxxxxxx 2019-P [phone] [address] [place] [facility] [id number] [place] [address] documented as of this encounter Advance Directives Patient Programmer Analyst Consultant Explanation Type Date Recorded 0 Advance Directives 08/08/2013 8:00 AM and Living Will Power of Radar Mechanic 08/08/2013 8:00 AM
--- OUTSIDE RECORDS SUMMARY | 2019-12-13 15:36 | XMS REPORT | Summary of Care ---
Author Author [facility] - Health Organization [facility] - Health Address Unknown Phone Unavailable Care Team Providers Care Assistant Womens Volleyball Coach Name Role Phone Ovidio Clarke MD PCP Reason for Visit * Reason Comments Follow-up right hand Encounter Details Care Team Description Date Type Department Jay-Kellee, Giuliano, NITRATOR OPERATOR [address] [place] [address] [phone] Vitamin D deficiency (Primary Dx); Postmenopausal bone loss; Cervical radiculopathy; Ankylosing spondylitis of multiple sites in spine 09/23/2019 Office Visit [facility]- [address] [place] [phone] Allergies Comments Active Allergy Reactions Severity Noted [...] Added automatically from request for jimmy solorio [id number] Cervical spondylosis with radiculopathy 01/01/2019 Overview: Added automatically from request for jimmy solorio [id number] Mixed hyperlipidemia 08/13/2018 Overview: LDL 140 07/17/2018 Left tennis elbow 06/17/2018 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 Overview: R Avulsion fracture of lateral epicondyle of humerus 0 11/14/2017 Painful patella, unspecified laterality 11/05/2017 S/P revision of total hip 09/18/2017 Colon cancer screening 05/24/2017 Overview: Added automatically from request for jimmy solorio [id number] Hematemesis with nausea 05/24/2017 Overview: Added automatically from request for jimmy solorio [id number] Nausea and vomiting, intractability of vomiting not s pecified, unspecified 05/24/2017 vomiting type Overview: Added automatically from request for jimmy solorio [id number] ANJELICA (obstructive sleep apnea) 05/10/2017 Obesity (BMI 30-39.9) 05/01/2017 Microhematuria 02/14/2017 Complex tear of medial meniscus of right knee as curr ent injury, initial 01/18/2017 encounter Overview: Added automatically from request for jimmy solorio [id number] Elevated MCV 07/25/2016 Overview: 103.4 07/22/2016 Muscle [...] lower leg 11/25/2013 Overview: ICD10 Diagnosis Term Order Desk Caller Utility Knee crepitus 11/25/2013 Genu valgum, acquired 11/25/2013 Overview: ICD10 Diagnosis Term Order Desk Caller Utility Patellofemoral misalignment with pain 11/25/2013 Primary [...] 11/16/2010 Headache 04/08/2010 Overview: ICD10 Diagnosis Term Order Desk Caller Utility Nonerosive nonspecific gastritis 04/08/2010 Overview: EGD Dr. Lloyd Glossitis 02/23/2010 Tobacco use disorder 02/23/2010 Menorrhagia 05/19/2009 Vision blurred 05/19/2009 Acute upper respiratory infection 08/14/2008 Overview: ICD10 Diagnosis Term Order Desk Caller Utility Acute pharyngitis 08/14/2008 Screening for malignant neoplasm of cervix 9 Overview: ICD10 Diagnosis Term Order Desk Caller Utility Breast screening 07/16/2008 Overview: ICD10 Diagnosis Term Order Desk Caller Utility Urinary tract infection, site not specified 04/29/20 08 Backache 06/02/2007 Overview: Lower back pain ICD10 Diagnosis Term Order Desk Caller Utility Pain in joint 06/02/2007 Overview: ICD10 Diagnosis Term Order Desk Caller Utility Cervicalgia 06/02/2007 Myalgia and myositis 06/02/2007 Overview: Bilateral trapezius pain ICD10 Diagnosis Term Order Desk Caller Utility Absence of menstruation 04/25/2007 Anemia 03/25/2007 Overview: ICD10 Diagnosis Term Order Desk Caller Utility Helicobacter pylori infection 06/11/2006 Overview: ICD10 Diagnosis Term Order Desk Caller Utility Acute peptic ulcer 06/11/2006 Overview: ICD10 Diagnosis Term Order Desk Caller Utility Abdominal pain 04/25/2006 Overview: ICD10 Diagnosis Term Order Desk Caller Utility Ankylosing spondylitis 04/25/2006 Vaginitis and vulvovaginitis 04/25/2006 Overview: ICD10 Diagnosis Term Order Desk Caller Utility Other, mixed, or unspecified nondependent drug [...] eatures 11/30/2005 02/11/2018 Overview: ICD10 Diagnosis Term Order Desk Caller Utility documented as of this encounter (statuses [...] a 53 [facility] with chief complaint of neck. 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 [...] Right 01/06/2014 Surgeon: Girish Fountain MD; Location: [facility] OR LOCATION ARTHROSCOPIC MENISCAL REPAIR Right 01/06/2014 Surgeon: Girish Fountain MD; Location: [facility] OR LOCATION CERVICAL EPIDURAL STEROID INJECTION 03/26/2012 Surgeon: Maged Franklin MD PHD; Location: [facility] OR LOCATION CERVICAL EPIDURAL STEROID INJECTION N/A 01/23/2019 Surgeon: Sebastian Doe; Location: [facility] OR Location COLONOSCOPY N/A 06/22/2015 Surgeon: Arian To MD; Location: [facility] OR LOCATION COLONOSCOPY N/A 02/17/2019 Surgeon: Ricco Hannah DO; Location: [facility] OR Location EGD (ENDO) 03/23/2015 [facility] ESOPHAGOGASTRODUODENOSCOPY 04/13 ulcers ESOPHAGOGASTRODUODENOSCOPY 06/15 ESOPHAGOGASTRODUODENOSCOPY 10/07/2009 mild nonerosive gastritis ESOPHAGOGASTRODUODENOSCOPY N/A 06/22/2015 Surgeon: Arian To MD; Location: [facility] OR LOCATION ESOPHAGOGASTRODUODENOSCOPY N/A 02/17/2019 Surgeon: Ricco Hannah DO; Location: [facility] OR Location FLEXIBLE BRONCHOSCOPY 05/24/2015 Samira, 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 HIP HEMIARTHROPLASTY 2001 Right KNEE ARTHROSCOPY Right 01/06/2014 Surgeon: Girish Fountain MD; Location: [facility] OR [facility] OPEN CARPAL TUNNEL RELEASE Right 07/15/2019 Surgeon: Zia Resendez MD; Location: [facility] NE ARTHRS KNE SURG W/MENISCECTOMY MED/LAT W/SHVG 01/06/2014 NE KNEE SCOPE,REMV LOOSE BODY 01/06/2014 TOTAL HIP ARTHROPLASTY REVISION Right 09/18/2017 Surgeon: Sebastian Bunn MD; Location: [facility] OR Location TUBAL LIGATION 1988 ROS Constitutional: [...] Date [place] [address] [place] [address] 10/06/2019 Appointment Radiology Giuliano Gardner FNP [address] [place], [place] [address] 10/06/2019 Appointment Radiology Giuliano Gardner, ALV[place] [address] [place], [place] [address] 10/06/2019 Appointment Radiology Sebastian Doe MD [address] [place], [place] [address] 10/28/2019 Office Visit Pain Medicine 2, Jennifer Adult Infusion Nurse 10/30/2019 Nurse Visit Infusion Therapy Omar Clay, [address] [place] [address] [phone] 11/18/2019 Office Visit [place] [address] [place] [address] [phone] 12/02/2019 Office Visit Family Medicine Order Schedule [...] / 0 / R01HPT Bipolar Head, [place] Uhr Bipolar BIPOLAR Right: Hip Donal 54u72iv #Uh1-44-28 - S0 head Implanted: Qty: 1 on 09/18/2017 by Sebastian Bunn MD at [facility] 07/07/2021 1023-12 / [id number] / [id number] Cancellous Cubes, Community Tissue BONE Right: Hip Community Services Freeze Dried 30 Cc Tissue #1023-12 - [id number] Services Implanted: Qty: 1 on 09/18/2017 by Sebastian Bunn MD at [facility] 03/08/2018 2018-40 / [id number] / [id number] Dbm Putty Maxxeus 10 Cts #2018-40 BONE Right: Hip [facility] [id number] Tissue Implanted: Qty: 1 on 09/18/2017 by Services Sebastian Bunn MD at [facility] 04/07/2022 1365-28-720 / 0 / [id number] Delta Ceramic Femoral Head 28mm +5 Head Right: Hip Depuy 06/21 Taper Depuy Ref#[id number] Synthes Implanted: Qty: 1 on 09/18/2017 by Sebastian Bunn MD at [facility] 03/29/2022 623-00-44F / 0 / [id number] Insert, Donal Trident 0deg 44mm Liner Right: Hip [place] #623-00-44f Implanted: Qty: 1 on 09/18/2017 by Sebastian Bunn MD at [facility] 04/24/2022 5260-5-050 / 0 / [id number] Screw Osteolock 3.[address] SCREW Right: Hip Donal Cancellous 50mm [place] Ref#5260-5-050 Implanted: Qty: 2 on 09/18/2017 by Sebastian Bunn MD at [facility] 06/01/2022 5260-5-020 / 0 / [id number] Screw Ostelock 3.[address] SCREW Right: Hip Donal Cancellous 20mm Donal Ref#5260-5-020 Implanted: Qty: 1 on 09/18/2017 by Sebastian Bunn MD at [facility] 06/01/2022 5260-5-016 / 0 / [id number] Screw Osteolock 3.[address] SCREW Right: Hip Donal Cancellous 18mm Donal Ref#[id number] Implanted: Qty: 1 on 09/18/2017 by Sebastian Bunn MD at [facility] 01/02/2022 509-02-60F / 0 / [id number] Shell, Donal Tritanium Revision Shell Right: Hip Donal Acetabular #509-02-60f - S0 Implanted: Qty: 1 on 09/18/2017 by Sebastian Bunn MD at [facility] documented as of this encounter Results [...] Plan / Dates Group Medicare Adv O [facility] [id number] 2018- MANAGED MEDICARE HEALTHCARE Present DUAL COMPLETE HMO Medicaid [facility] MEDICAID xxxxxxxxx 2019-P [phone] P O [facility] [address] [place] [address] documented as of this encounter Advance Directives Patient Eyeglass Frame Truer Explanation Type Date Recorded 0 Advance Directives 08/08/2013 8:00 AM and Living Will Power of Belt And Link Shop Supervisor 08/08/2013 8:00 AM
--- OUTSIDE RECORDS SUMMARY | 2019-12-13 15:36 | XMS REPORT | Summary of Care ---
Author Author [facility] - Health Organization [facility] - Health Address Unknown Phone Unavailable Care Team Providers Care Implementation Project Coordinator Name Role Phone Ovidio Clarke MD PCP Reason for Visit * Reason Comments Assessment Encounter Details Care Team Description Date [place] [address] [place] [address] Assessment 10/07/2019 [facility]phone [facility] [address] 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 Overview: R Avulsion fracture of lateral epicondyle of humerus 0 11/14/2017 Painful patella, unspecified laterality 11/05/2017 S/P revision of total hip 09/18/2017 Colon cancer screening 05/24/2017 Overview: Added automatically from request for jimmy solorio [id number] Hematemesis with nausea 05/24/2017 Overview: Added automatically from request for jimmy solorio [id number] Nausea and vomiting, intractability of vomiting not s pecified, unspecified 05/24/2017 vomiting type Overview: Added automatically from request for jimmy solorio [id number] ANJELICA (obstructive sleep apnea) 05/10/2017 Obesity (BMI 30-39.9) 05/01/2017 Microhematuria 02/14/2017 Complex tear of medial meniscus of right knee as curr ent injury, initial 01/18/2017 encounter Overview: Added automatically from request for jimmy solorio [id number] Elevated MCV 07/25/2016 Overview: 103.4 07/22/2016 Muscle [...] lobe nodular opacitiy on chest xray at [facility] 05/22/2015 Hiatus hernia syndrome 04/09/2015 Overview: EGD 03/23/2015 [facility] screening mammogram 01/06/2015 Immunization deficiency 10/09/2014 Overview: [...] lower leg 11/25/2013 Overview: ICD10 Diagnosis [employer] Knee crepitus 11/25/2013 Genu valgum, acquired 11/25/2013 Overview: ICD10 Diagnosis [employer] Patellofemoral misalignment with pain 11/25/2013 [...] 11/16/2010 Headache 04/08/2010 Overview: ICD10 Diagnosis [employer] Nonerosive nonspecific gastritis 04/08/2010 Overview: EGD Dr. Lloyd Glossitis 02/23/2010 Tobacco use disorder 02/23/2010 Menorrhagia 05/19/2009 Vision blurred 05/19/2009 Acute upper respiratory infection 08/14/2008 Overview: ICD10 Diagnosis [employer] Acute pharyngitis 08/14/2008 Screening for malignant neoplasm of cervix 9 Overview: ICD10 Diagnosis [employer] Breast screening 07/16/2008 Overview: ICD10 Diagnosis [employer] Urinary tract infection, site not specified 04/29/20 08 Backache 06/02/2007 Overview: Lower back pain ICD10 Diagnosis [employer] Pain in joint 06/02/2007 Overview: ICD10 Diagnosis [employer] Cervicalgia 06/02/2007 Myalgia and myositis 06/02/2007 Overview: Bilateral trapezius pain ICD10 Diagnosis [employer] Absence of menstruation 04/25/2007 Anemia 03/25/2007 Overview: ICD10 Diagnosis [employer] Helicobacter pylori infection 06/11/2006 Overview: ICD10 Diagnosis [employer] Acute peptic ulcer 06/11/2006 Overview: ICD10 Diagnosis [employer] Abdominal pain 04/25/2006 Overview: ICD10 Diagnosis [employer] Ankylosing spondylitis 04/25/2006 Vaginitis and vulvovaginitis 04/25/2006 Overview: ICD10 Diagnosis [employer] Other, mixed, or unspecified nondependent [...] eatures 11/30/2005 02/11/2018 Overview: ICD10 Diagnosis [employer] documented as of this encounter (statuses [...] of Treatment Care Team Description Date Type Skull ChopperSebastian Doe MD [id number] [place] [address] [phone] 10/28/2019 Office Visit Pain Medicine 2, Jennifer Adult Infusion Nurse 10/30/2019 Nurse Visit Infusion Therapy Omar Clay, [address] [place] [address] [phone] 11/18/2019 Office [place] [address] [place] [address] 12/02/2019 Office Visit [place] [address] [place] [address] 01/16/2020 Appointment Radiology Giuliano Gardner, [employer] [address] [place], [place] [address] 01/16/2020 Appointment Radiology Health Maintenance Due Date [...] Donal Uhr Bipolar BIPOLAR Right: Hip Donal [id number] #[id number] - S0 head Implanted: Qty: 1 on 09/18/2017 by Sebastian Bunn MD at [facility] 07/07/2021 1023-12 / [id number] / [id number] Cancellous Cubes, Community Tissue BONE Right: Hip [facility] Freeze Dried 30 Cc Tissue #1023-12 - [id number] Services Implanted: Qty: 1 on 09/18/2017 by Sebastian Bunn MD at [facility] 03/08/2018 2018-40 / [id number] / [id number] Dbm Putty Maxxeus 10cc Cts #2018-40 BONE Right: Hip [facility] - [id number] Tissue Implanted: Qty: 1 on 09/18/2017 by Services Sebastian Bunn MD at [facility] 04/07/2022 1365-28-720 / 0 / [id number] Delta Ceramic Femoral Head 28mm +5 Head Right: Hip Depuy 06/21 Taper Depuy Ref#[id number] Synthes Implanted: Qty: 1 on 09/18/2017 by Sebastian Bunn MD at [facility] 03/29/2022 [id number] / 0 / [id number] Insert, Donal Trident 0deg 44mm Liner Right: Hip Donal #623-00-44f Implanted: Qty: 1 on 09/18/2017 by Sebastian Bunn MD at [facility] 04/24/2022 5260-5-050 / 0 / [id number] Screw Osteolock [address] SCREW Right: Hip Donal Cancellous 50mm Donal Ref#5260-5-050 Implanted: Qty: 2 on 09/18/2017 by Sebastian Bunn MD at [facility] 06/01/2022 5260-5-020 / 0 / [id number] Screw Ostelock [address] SCREW Right: Hip Donal Cancellous 20mm Donal Ref#5260-5-020 Implanted: Qty: 1 on 09/18/2017 by Sebastian Bunn MD at [facility] 06/01/2022 5260-5-016 / 0 / [id number] Screw Osteolock 3[address] SCREW Right: Hip [place] Cancellous 18mm Donal Ref#5260-5-016 Implanted: Qty: 1 on 09/18/2017 by Sebastian uBnn MD at [facility] 01/02/2022 509-02-60F / 0 / [id number] Shell, Donal Tritanium Revision Shell Right: Hip Donal Acetabular #509-02-60f - S0 Implanted: Qty: 1 on 09/18/2017 by Sebastian Bunn MD at [facility] documented as of this encounter Results Not on filedocumented in this encounter Insurance Type Payer Benefit Subscriber ID Effective Phone Address Plan / Dates Group Medicare Adv HMO [facility] [id number] 2018- MANAGED MEDICARE HEALTHCARE Present DUAL COMPLETE HMO [facility] [id number] 2018- [address] SOLUTIONS H Present [address] [place] [address] [place] xxxxxxxxx 2019-P [phone] [address] [place] [facility] [id number] [place] [address] documented as of this encounter Advance Directives Patient Waiter/Waitress First Class Explanation Type Date Recorded 0 Advance Directives 08/08/2013 8:00 AM and Living Will Power of Staff Respiratory Therapist 08/08/2013 8:00 AM
--- OUTSIDE RECORDS SUMMARY | 2019-12-13 15:36 | XMS REPORT | Clinical Summary ---
Author Author [facility] - Health Organization [facility] - Health Address Unknown Phone Unavailable Care Team Providers Care Nitrocellulose Maker Name Role Phone Ovidio Clarke MD PCP [...] TIMES unspecified site of spine DAILY Active rifAMPin 300 mg capsule 2 tabs [...] in spine MOUTH 1 TIME WEEKLY Active esomeprazole (NEXIUM) 40 Take 1 90 [...] unit) capsuleIndications: mouth weekly. Postmenopausal bone loss Active ziprasidone 20 mg Take 1 60 capsule 2 10/23/19 2 capsuleIndications: capsule by 0 Schizoaffective disorder, mouth 2 (two) depressive type times daily with meals. Active zolpidem (AMBIEN) 10 mg Take 1 tablet 30 tablet 2 tabletIndications: by mouth at 0 Insomnia, unspecified bedtime as type needed for Insomnia. Active Problems Problem Noted Date Acute vaginitis 10/08/2019 Essential hypertension 03/19/2019 Carpal tunnel syndrome on right 03/19/2019 Overview: EMG 02/18/2019 Special screening for malignant neoplasms, colon Overview: Added automatically from request for marquez [employer] [id number] Cervical spondylosis with radiculopathy 01/01/2019 Overview: Added automatically from request for marquez [employer] [id number] Mixed hyperlipidemia 08/13/2018 Overview: LDL 140 07/17/2018 Left tennis elbow 06/17/2018 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 Overview: R Avulsion fracture of lateral epicondyle of humerus 0 11/14/2017 Painful patella, unspecified laterality 11/05/2017 S/P revision of total hip 09/18/2017 Colon cancer screening 05/24/2017 Overview: Added automatically from request for [employer] [id number] Hematemesis with nausea 05/24/2017 Overview: Added automatically from request for [employer]quez [employer] [id number] Nausea and vomiting, intractability of vomiting not s pecified, unspecified 05/24/2017 vomiting type Overview: Added automatically from request for [employer] [id number] ANJELICA (obstructive sleep apnea) 05/10/2017 Obesity (BMI 30-39.9) 05/01/2017 Microhematuria 02/14/2017 Complex tear of medial meniscus of right knee as curr ent injury, initial 01/18/2017 encounter Overview: Added automatically from request for jimmy solorio [id number] Elevated MCV 07/25/2016 Overview: 103.4 07/22/2016 Muscle [...] lobe nodular opacitiy on chest xray at [facility] 05/22/2015 Hiatus hernia syndrome 04/09/2015 [...] lower leg 11/25/2013 Overview: ICD10 Diagnosis Term Durability Technician Utility Knee crepitus 11/25/2013 Genu valgum, acquired 11/25/2013 Overview: ICD10 Diagnosis Term Durability Technician Utility Patellofemoral misalignment with pain 11/25/2013 [...] 11/16/2010 Headache 04/08/2010 Overview: ICD10 Diagnosis Term Durability Technician Utility Nonerosive nonspecific gastritis 04/08/2010 Overview: EGD Dr. Lloyd Glossitis 02/23/2010 Tobacco use disorder 02/23/2010 Menorrhagia 05/19/2009 Vision blurred 05/19/2009 Acute upper respiratory infection 08/14/2008 Overview: ICD10 Diagnosis Term Durability Technician Utility Acute pharyngitis 08/14/2008 Screening for malignant neoplasm of cervix 9 Overview: ICD10 Diagnosis Term Durability Technician Utility Breast screening 07/16/2008 Overview: ICD10 Diagnosis Term Durability Technician Utility Urinary tract infection, site not specified 04/29/20 08 Backache 06/02/2007 Overview: Lower back pain ICD10 Diagnosis Term Durability Technician Utility Pain in joint 06/02/2007 Overview: ICD10 Diagnosis Term Durability Technician Utility Cervicalgia 06/02/2007 Myalgia and myositis 06/02/2007 Overview: Bilateral trapezius pain ICD10 Diagnosis Term Durability Technician Utility Absence of menstruation 04/25/2007 Anemia 03/25/2007 Overview: ICD10 Diagnosis Term Durability Technician Utility Helicobacter pylori infection 06/11/2006 Overview: ICD10 Diagnosis Term Durability Technician Utility Acute peptic ulcer 06/11/2006 Overview: ICD10 Diagnosis Term Durability Technician Utility Abdominal pain 04/25/2006 Overview: ICD10 Diagnosis Term Durability Technician Utility Ankylosing spondylitis 04/25/2006 Vaginitis and vulvovaginitis 04/25/2006 Overview: ICD10 Diagnosis Term Durability Technician Utility Other, mixed, or unspecified nondependent drug abuse, continuous 11/30/2005 Resolved Problems Problem Noted Date Resolved Date Arm laceration, right, subsequent encounter 04/13/2014 04/13/2014 Syncope and collapse 02/27/2007 06/28/2014 Bipolar I disorder, most recent episode (or current) unspec ified 01/03/2007 01/23/2018 Overview: Dr. 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 11/30/2005 02/11/2018 Overview: ICD10 Diagnosis Term Durability Technician Utility Encounters Care Team Description Date Type Specialty 10/22/2019 Travel Ovidio Clarke Jr., MD Assessment 10/07/2019 Telephone Family Medicine Giuliano Gardner FNP Vitamin D deficiency (Primary Dx); Postmenopausal bone loss; Cervical radiculopathy; Ankylosing spondylitis of multiple sites in spine 09/23/2019 Office Visit Orthopedic Surgery Ovidio Clarke Jr., MD Rx Concern/Question 09/22/2019 Telephone Family Medicine Ovidio Clarke Jr., MD Rx Concern/Question 09/19/2019 Telephone Internal Medicine Ovidio Clarke Jr., MD Ankylosing spondylitis, unspecified [...] malignant neoplasm of breast 09/18/2019 Office Visit Family Medicine Omar Clay DO 3, Jennifer Adult Infusion Nurse Ankylosing spondylitis, unspecified site of spine (Primary Dx) 09/04/2019 Nurse Visit Infusion Therapy Susan Naylor PA-C Tonsillar hypertrophy (Primary Dx); [...] spondylitis of multiple sites in spine 08/19/2019 Snorkelling Instructor Phlebotomy Visit Omar Clay DO Ankylosing spondylitis of multiple sites in spine (Primary Dx); Mycobacterium avium infection; Therapeutic drug monitoring; Anterior uveitis; Schizoaffective disorder, bipolar type 08/19/2019 Office Visit Rheumatology Omar Clay, Orders (updated infusion order needed fo r Remicade) 08/14/2019 Telephone Rheumatology Ovidio Clarke Jr., MD Refill Request 08/13/2019 Refill Family Medicine Omar Clay, Refill Request 08/12/2019 Refill Rheumatology JayGiuliano Bentley FNP Vls-Lab Postmenopausal bone loss 07/31/2019 Snorkelling Instructor Phlebotomy Visit Giuliano Gardner FNP Carpal tunnel syndrome on right (Primary Dx); Postmenopausal bone loss; Ankylosing spondylitis of multiple sites in spine 07/31/2019 Office Visit Orthopedic Surgery Sebastian Doe MD Cervical spondylosis with radiculopathy (Primary Dx); Ankylosing spondylitis, unspecified site of spine; Carpal tunnel syndrome of right wrist; Chronic pain syndrome 07/29/2019 Office Visit Pain Medicine Doctor Unassigned, [place] 07/28/2019 Orders Only from Last 3 Months Immunizations [...] Pressure 100 09/18/2019 10:57 AM CDT Pulse 36.5 C (97.7 F) 09/23/2019 1:16 PM CDT Temperature 16 09/18/2019 10:57 AM CDT Respiratory Rate 100% 09/18/2019 10:57 AM CDT Oxygen Saturation - - Inhaled Oxygen Concentration 87.4 kg (192 lb 11.2 oz) 09/23/2019 1:16 PM CDT Weight 165.1 cm (5' 5") 09/23/2019 1:16 PM CDT Height 32.07 09/23/2019 1:16 PM CDT Body Mass Index Plan of Treatment Care Team Description Date Type Coach WirerSebastian Doe MD [id number] [place] [address] [phone] 10/28/2019 Telemedicine Pain Medicine Visit Omar Clay, DO [address] [place] [address] [phone] Jennifer Oreilly Adult Infusion Nurse 10/30/2019 Nurse Visit Infusion Therapy Omar Clay, DO [address] [place] [address] [phone] 11/18/2019 Telemedicine [place] [address] [place] [address] 11/28/2019 Telemedicine [place] [address] [place] [phone] 01/16/2020 Appointment Radiology JayRadhaBonychris Giuliano, PATENT CLERK [address] [place] [address] [phone] 01/16/2020 Appointment Radiology Health Maintenance Due Date Last Done Comments Breast Cancer Screening 06/14/2019 06/14/2018, (MAMMOGRAM) PAP SMEAR 11/04/2019 11/03/2016 (Previou sly completed), 07/16/2008, 05/26/2005, Additional history exists Zoster Recombinant 06/17/2020 Postponed from 11/06 Vaccine (SHINGRIX) (1 of (Insurance / Financial) 2) DTaP,Tdap,and Td Vaccines 08/24/2024 08/24/2014, 04/01/2014 (2 - Td) COLONOSCOPY 02/17/2029 02/17/2019, 015 HEPATITIS C (HCV) SCREEN Completed 11/17/2015, 1 07/28/2012, 10/11/2004, Additional history exists PNEUMOCOCCAL 0-64 YEARS Completed 02/19/2018, COMBINED SERIES INFLUENZA VACCINE Completed 06/19/2019, 018, 05/10/2017, Additional [...] Donal Uhr Bipolar BIPOLAR Right: Hip Donal 47p75ma #[id number] - S0 head Implanted: Qty: 1 on 09/18/2017 by Sebastian Bunn MD at [facility] 07/07/2021 1023-12 / [id number] / [id number] Cancellous Cubes, Community Tissue BONE Right: Hip [facility] Freeze Dried 30 Cc Tissue #1023-12 - [id number] Services Implanted: Qty: 1 on 09/18/2017 by Sebastian Bunn MD at [facility] 03/08/2018 2018-40 / [id number] / [id number] Dbm Putty Maxxeus 10cc Cts #2018-40 BONE Right: Hip [facility] - [id number] Tissue Implanted: Qty: 1 on 09/18/2017 by Services Sebastian Bunn MD at [facility] 04/07/2022 [id number] / 0 / [id number] Delta Ceramic Femoral Head 28mm +5 Head Right: Hip Depuy 06/21 Taper Depuy Ref#[id number] Synthes Implanted: Qty: 1 on 09/18/2017 by Sebastian Bunn MD at [facility] 03/29/2022 623-00-44F / 0 / [id number] Insert, Donal Trident 0deg 44mm Liner Right: Hip [place] #[id number] Implanted: Qty: 1 on 09/18/2017 by Sebastian Bunn MD at [facility] 04/24/2022 5260-5-050 / 0 / [id number] Screw Osteolock 3.[address] SCREW Right: Hip [place] Cancellous 50mm Donal Ref#[id number] Implanted: Qty: 2 on 09/18/2017 by Sebastian Bunn MD at [facility] 06/01/2022 5260-5-020 / 0 / [id number] Screw Ostelock 3.[address] SCREW Right: Hip Donal Cancellous 20mm [place] Ref#[id number] Implanted: Qty: 1 on 09/18/2017 by Sebastian Bunn MD at [facility] 06/01/2022 5260-5-016 / 0 / [id number] Screw Osteolock 3.[address] SCREW Right: Hip Donal Cancellous 18mm [place] Ref#[id number] Implanted: Qty: 1 on 09/18/2017 by Sebastian Bunn MD at [facility] 01/02/2022 [id number] / 0 / [id number] Shell, Donal Tritanium Revision Shell Right: Hip [place] Acetabular #[id number] - S0 Implanted: Qty: 1 on 09/18/2017 by Sebastian Bunn MD at [facility] Procedures Comments Procedure Name Priority Date/Time Associated Diag nosis FLEXIBLE SCOPE ENT Routine 08/28/2019 Adenoid hyp ertrophy CBC WITH DIFFERENTIAL Routine 08/19/2019 Ankylosi ng spondylitis of 2:54 PM FURNACE UNLOADER multiple sites in spine QUANTIFERON-TB ASSAY Routine 08/19/2019 Ankylosin g spondylitis of 2:54 PM FURNACE UNLOADER multiple sites in spine COMP. METABOLIC PANEL Routine 08/19/2019 Ankylosi ng spondylitis of (83826) 2:54 PM FURNACE UNLOADER multiple sites in s pine SEDIMENTATION RATE Routine 08/19/2019 Ankylosing spondylitis of 2:54 PM FURNACE UNLOADER multiple sites in spine CBC WITH DIFFERENTIAL Routine 08/19/2019 Ankylosi ng spondylitis of 2:54 PM FURNACE UNLOADER multiple sites in spine C-REACTIVE PROTEIN Routine 08/19/2019 Ankylosing spondylitis of 2:49 PM FURNACE UNLOADER multiple sites in spine MAGNESIUM Routine 07/31/2019 Postmenopausal bone loss 10:15 AM FURNACE UNLOADER VITAMIN B12, LEVEL Routine 07/31/2019 Postmenopau marjorie bone loss 10:15 AM FURNACE UNLOADER INTACT PTH CALCIUM GROUP Routine 07/31/2019 Postm enopausal bone loss 10:15 AM FURNACE UNLOADER VITAMIN D, 25-OH Routine 07/31/2019 Postmenopausa l bone loss 10:15 AM FURNACE UNLOADER PHYSICIAN CERTIFICATION Routine 07/29/2019 STATEMENT 12:01 AM FURNACE UNLOADER REFERRAL- Routine 07/28/2019 REQUEST/RESPONSE 12:01 AM FURNACE UNLOADER from Last 3 Months Results * FLEXIBLE SCOPE ENT (08/28/2019) Specimen Narrative Performed At Please see endoscopic findings from clinic note from 08/28/2019. [facility] Performing Organization Address City/State/Zipcode Ph one Number [facility] * CBC WITH DIFFERENTIAL (08/19/2019 2:54 PM FURNACE UNLOADER) WBC 6.41 4.30 - 11.10 [facility] [...] MONO x10^3 0.53 0.33 - 0.92 10*3/uL [facility] EOS x10^3 0.16 0.03 - 0.39 10*3/uL [facility] BASO x10^3 <0.03 0.01 - 0.07 10*3/uL [facility] Specimen Blood Performing Organization Address City/State/Zipcode Ph one Number [facility] CLIA: [id number], [address] [place] [address] [facility] * QUANTIFERON-TB ASSAY (08/19/2019 2:54 PM FURNACE UNLOADER) Nil 0.018 IU/mL [facility] TB1 minus Nil 0.004 IU/mL [facility] TB2 minus Nil 0.005 IU/mL [facility] Mitogen minus >10.000 IU/mL [facility] Nil SERVICES QFT Gold Plus Negative Negative [facility] Result SERVICES Specimen Blood - VENOUS Narrative Performed At Test results are calculated in accordan ce with an FDA-approved algorithm run on [facility] QuantiFERON(R) software. SERVICES The QuantiFERON(R) [...] results. For further information, refer to http: //www.cdc.gov/mmwr/pdf/rr/xb9580.pdf |Nil | TB1 minus | TB2 minus [...] | | + *Indeterminate Performing Organization Address City/[facility] Ph one Number [facility] CLIA: [id number], [address] [place] [address] [facility] * SEDIMENTATION RATE (08/19/2019 2:54 PM FURNACE UNLOADER) ESR 41 (H) 0 - 20 mm/HR [facility] Specimen Blood Performing Organization Address City/[facility] Ph one Number [facility] CLIA: [id number], [address] [place] [address] [facility] * COMP. METABOLIC PANEL (37930) (08/19/2019 2:54 PM FURNACE UNLOADER) NA 138 135 - 145 mmol/L [facility] RY SERVICES K 4.3 3.5 - 5.0 mmol/L [facility] CL 100 98 - 108 mmol/L [facility] Y [facility] CO2 TOTAL 28 23 - 31 mmol/L [facility] AGAP 10 2 - 16 [facility] BUN 12 7 - 23 mg/dL [facility] GLUCOSE 97 70 - 110 mg/dL [facility] CREATININE 0.62 0.50 - 1.04 mg/dL [facility] ORY SERVICES TOTAL BILI 0.6 0.1 - 1.1 mg/dL [facility] CALCIUM 9.9 8.6 - 10.6 mg/dL [facility] T PROTEIN 8.0 6.3 - 8.2 g/dL [facility] ALBUMIN 4.4 3.5 - 5.0 g/dL [facility] ALK PHOS 97 34 - 122 U/L [facility] ALTv 10 5 - 35 U/L [facility] AST(SGOT) 22 13 - 40 U/L [facility] eGFR 100.3 mL/min/1.73m2 [facility] Calculation SERVICES (Non-) eGFR 121.6 mL/min/1.73m2 [facility] Calculation SERVICES () Specimen Blood Narrative Performed At Association of Glomerular Filtration Rate (GFR) and S taging of Kidney Disease* [facility] + + +------ + SERVICES [...] abnormalities in imaging tests). Performing Organization Address [facility] one Number [facility] CLIA: [id number], [address] [place] [address] [facility] * C-REACTIVE PROTEIN (08/19/2019 2:49 PM FURNACE UNLOADER) CRP 1.8 (H) <0.8 mg/dL [facility] Specimen Blood Performing Organization Address [facility] Ph one Number [facility] CLIA: [id number], [address] [place] [address] [facility] * VITAMIN D, 25-OH (07/31/2019 10:15 AM FURNACE UNLOADER) VIT D 25OH 18 (L) 25 - 80 ng/mL [facility] Specimen Blood Narrative Performed At Deficiency: <20 ng/mL [facility] Insufficiency: 20-24 ng/mL SERVICES Optimal: 25-80 ng/mL Performing Organization Address City/State[facility] Ph one Number [facility] CLIA: [id number], [address] [place] [address] [facility] * INTACT PTH CALCIUM GROUP (07/31/2019 10:15 AM FURNACE UNLOADER) CALCIUM 9.9 8.6 - 10.6 mg/dL [facility] RY SERVICES PTH-INTACT 62.3 12.0 - 88.0 pg/mL [facility] ORY SERVICES PTH-CA Comment: PTH IS Appropriate [facility] Interpretation for Calcium SERVICES Specimen Blood Performing Organization Address [facility] Ph one Number [facility] CLIA: [id number], [address] [place] [address] [facility] * VITAMIN B12, LEVEL (07/31/2019 10:15 AM FURNACE UNLOADER) VIT B12 345 240 - 930 pg/mL [facility] Specimen Blood Narrative Performed At Biotin has been reported to cause a pos itive bias, interpret results relative to [facility] patient's use of biotin. SERVICES Performing Organization Address [facility] Ph one Number [facility] CLIA: [id number], [address] [place] [address] [facility] * MAGNESIUM (07/31/2019 10:15 AM FURNACE UNLOADER) MAGNESIUM 2.1 1.7 - 2.4 mg/dL [facility] Specimen Blood Performing Organization Address City/State/Zipcode Ph one Number [facility] CLIA: [id number], [address] [place], [place] [address] SERVICES-[facility] * PHYSICIAN CERTIFICATION STATEMENT (07/29/2019 12:01 AM FURNACE UNLOADER) Specimen Performing Organization Address City/[facility] Ph one Number HIM * REFERRAL- REQUEST/RESPONSE (07/28/2019 12:01 AM FURNACE UNLOADER) Specimen Performing Organization Address City/State/Zipcode Ph one Number HIM from Last 3 Months Insurance Type Payer Benefit Subscriber ID Effective Phone Address Plan / Dates Group Medicare Adv HMO [facility] [id number] 2018- MANAGED MEDICARE HEALTHCARE Present DUAL COMPLETE HMO [facility] [id number] 2018- [address] [employer] H Present [address] [place] [address] Medicaid [employer] MEDICAID xxxxxxxxx 2019-P [phone] [address] [place] resent [id number] [place] [address] amily (Home) [place] [address] [facility] 1965 [address] [address] Health (Home) [place] [address] Advance Directives Patient Pet Training Instructor Explanation Type Date Recorded 0 Advance Directives 08/08/2013 8:00 AM and Living Will Power of Edge Roller 08/08/2013 8:00 AM
--- OUTSIDE RECORDS SUMMARY | 2019-12-13 15:36 | XMS REPORT | Clinical Summary ---
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 Overview: R Avulsion fracture of lateral epicondyle of humerus 0 11/14/2017 Painful patella, unspecified laterality 11/05/2017 S/P revision of total hip 09/18/2017 Colon cancer screening 05/24/2017 Overview: Added automatically from request for [employer]quez [employer] [id number] Hematemesis with nausea 05/24/2017 Overview: Added automatically from request for [employer]quez [employer] [id number] Nausea and vomiting, intractability of vomiting not s pecified, unspecified 05/24/2017 vomiting type Overview: Added automatically from request for [employer] [id number] ANJELICA (obstructive sleep apnea) 05/10/2017 Obesity (BMI 30-39.9) 05/01/2017 Microhematuria 02/14/2017 Complex tear of medial meniscus of right knee as curr ent injury, initial 01/18/2017 encounter Overview: Added automatically from request for jimmy solorio [id number] Elevated MCV 07/25/2016 Overview: 103.4 07/22/2016 Muscle [...] nodular opacitiy on chest xray at [facility] 05/22/2015 Hiatus hernia syndrome 04/09/2015 Overview: [...] lower leg 11/25/2013 Overview: ICD10 Diagnosis Term Veneer Jointer Returner Utility Knee crepitus 11/25/2013 Genu valgum, acquired 11/25/2013 Overview: ICD10 Diagnosis Term Veneer Jointer Returner Utility Patellofemoral misalignment with pain 11/25/2013 Primary [...] 11/16/2010 Headache 04/08/2010 Overview: ICD10 Diagnosis Term Veneer Jointer Returner Utility Nonerosive nonspecific gastritis 04/08/2010 Overview: EGD Dr. Lloyd Glossitis 02/23/2010 Tobacco use disorder 02/23/2010 Menorrhagia 05/19/2009 Vision blurred 05/19/2009 Acute upper respiratory infection 08/14/2008 Overview: ICD10 Diagnosis Term Veneer Jointer Returner Utility Acute pharyngitis 08/14/2008 Screening for malignant neoplasm of cervix 9 Overview: ICD10 Diagnosis Term Veneer Jointer Returner Utility Breast screening 07/16/2008 Overview: ICD10 Diagnosis Term Veneer Jointer Returner Utility Urinary tract infection, site not specified 04/29/20 08 Backache 06/02/2007 Overview: Lower back pain ICD10 Diagnosis Term Veneer Jointer Returner Utility Pain in joint 06/02/2007 Overview: ICD10 Diagnosis Term Veneer Jointer Returner Utility Cervicalgia 06/02/2007 Myalgia and myositis 06/02/2007 Overview: Bilateral trapezius pain ICD10 Diagnosis Term Veneer Jointer Returner Utility Absence of menstruation 04/25/2007 Anemia 03/25/2007 Overview: ICD10 Diagnosis Term Veneer Jointer Returner Utility Helicobacter pylori infection 06/11/2006 Overview: ICD10 Diagnosis Term Veneer Jointer Returner Utility Acute peptic ulcer 06/11/2006 Overview: ICD10 Diagnosis Term Veneer Jointer Returner Utility Abdominal pain 04/25/2006 Overview: ICD10 Diagnosis Term Veneer Jointer Returner Utility Ankylosing spondylitis 04/25/2006 Vaginitis and vulvovaginitis 04/25/2006 Overview: ICD10 Diagnosis Term Veneer Jointer Returner Utility Other, mixed, or unspecified nondependent drug abuse, continuous 11/30/2005 Resolved Problems Problem Noted Date Resolved Date Arm laceration, right, subsequent encounter 04/13/2014 04/13/2014 Syncope and collapse 02/27/2007 06/28/2014 Bipolar I disorder, most recent episode (or current) unspec ified 01/03/2007 01/23/2018 Overview: Dr. 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 11/30/2005 02/11/2018 Overview: ICD10 Diagnosis Term Veneer Jointer Returner Utility Encounters Care Team Description Date Type [...] of breast 09/18/2019 Office Visit Family Medicine mOar Clay DO 3, Jennifer Adult Infusion Nurse [...] spondylitis of multiple sites in spine 08/19/2019 Pediatric Care Coordinator Phlebotomy Visit Omar Clay DO Ankylosing spondylitis [...] Bentley FNP Vls-Lab Postmenopausal bone loss 07/31/2019 Pediatric Care Coordinator Phlebotomy Visit Giuliano Gardner FNP Carpal tunnel syndrome on right (Primary Dx); Postmenopausal bone loss; Ankylosing spondylitis of multiple sites in spine 07/31/2019 Office Visit Orthopedic Surgery Sebastian Doe MD Cervical spondylosis with radiculopathy (Primary Dx); Ankylosing spondylitis, unspecified site of spine; Carpal tunnel syndrome of right wrist; Chronic pain syndrome 07/29/2019 Office Visit Pain Medicine Doctor Unassigned, [place] 07/28/2019 Orders Only from Last 3 Months [...] of Treatment Care Team Description Date Type Barrel BranderSebastian Doe MD [id number] [place] [address] [phone] 10/28/2019 Telemedicine Pain Medicine Visit Omar Clay, DO [address] [place] [address] [phone] Jennifer Oreilly Adult Infusion Nurse 10/30/2019 Nurse Visit Infusion Therapy Omar Clay, DO [address] [place] [address] [phone] 11/18/2019 Telemedicine [place] [address] [place] [address] 11/28/2019 Telemedicine [place] [address] [place] [phone] 01/16/2020 Appointment Radiology JayRadhaBonychris Giuliano, [facility] [address] [place] [address] [phone] 01/16/2020 Appointment Radiology Health Maintenance Due Date [...] Donal Uhr Bipolar BIPOLAR Right: Hip Donal [id number] #[id number] - S0 head Implanted: Qty: 1 on 09/18/2017 by Sebastian Bunn MD at [facility] 07/07/2021 1023-12 / [id number] / [id number] Cancellous Cubes, Community Tissue BONE Right: Hip [facility] Freeze Dried 30 Cc Tissue #1023-12 - [id number] Services Implanted: Qty: 1 on 09/18/2017 by Sebastian Bunn MD at [facility] 03/08/2018 2018-40 / [id number] / [id number] Dbm Putty Maxxeus 10cc Cts #2018-40 BONE Right: Hip [facility] - [id number] Tissue Implanted: Qty: 1 on 09/18/2017 by Services Sebastian Bunn MD at [facility] 04/07/2022 [id number] / 0 / [id number] Delta Ceramic Femoral Head 28mm +5 Head Right: Hip Depuy 06/21 Taper Depuy Ref#[id number] Synthes Implanted: Qty: 1 on 09/18/2017 by Sebastian Bunn MD at [facility] 03/29/2022 [id number] / 0 / [id number] Insert, Donal Trident 0deg 44mm Liner Right: Hip [place] #[id number] Implanted: Qty: 1 on 09/18/2017 by Sebastian Bunn MD at [facility] 04/24/2022 5260-5-050 / 0 / [id number] Screw Osteolock 3.[address] SCREW Right: Hip [place] Cancellous 50mm Donal Ref#[id number] Implanted: Qty: 2 on 09/18/2017 by Sebastian Bunn MD at [facility] 06/01/2022 5260-5-020 / 0 / [id number] Screw Ostelock 3.[address] SCREW Right: Hip Donal Cancellous 20mm [place] Ref#[id number] Implanted: Qty: 1 on 09/18/2017 by Sebastian Bunn MD at [facility] 06/01/2022 5260-5-016 / 0 / [id number] Screw Osteolock 3.[address] SCREW Right: Hip Donal Cancellous 18mm [place] Ref#[id number] Implanted: Qty: 1 on 09/18/2017 by Sebastian Bunn MD at [facility] 01/02/2022 [id number] / 0 / [id number] Shell, Donal Tritanium Revision Shell Right: Hip [place] Acetabular #[id number] - [id number] Implanted: Qty: 1 on 09/18/2017 by Sebastian Bunn MD at [facility] Procedures Comments Procedure Name Priority Date/Time Associated Diag nosis FLEXIBLE SCOPE ENT Routine 08/28/2019 Adenoid hyp ertrophy CBC WITH DIFFERENTIAL Routine 08/19/2019 Ankylosi ng spondylitis of 2:54 PM RETAIL PROPERTY MANAGER multiple sites in spine QUANTIFERON-TB ASSAY Routine 08/19/2019 Ankylosin g spondylitis of 2:54 PM RETAIL PROPERTY MANAGER multiple sites in spine COMP. METABOLIC PANEL Routine 08/19/2019 Ankylosi ng spondylitis of (77511) 2:54 PM RETAIL PROPERTY MANAGER multiple sites in s pine SEDIMENTATION RATE Routine 08/19/2019 Ankylosing spondylitis of 2:54 PM RETAIL PROPERTY MANAGER multiple sites in spine CBC WITH DIFFERENTIAL Routine 08/19/2019 Ankylosi ng spondylitis of 2:54 PM RETAIL PROPERTY MANAGER multiple sites in spine C-REACTIVE PROTEIN Routine 08/19/2019 Ankylosing spondylitis of 2:49 PM RETAIL PROPERTY MANAGER multiple sites in spine MAGNESIUM Routine 07/31/2019 Postmenopausal bone loss 10:15 AM RETAIL PROPERTY MANAGER VITAMIN B12, LEVEL Routine 07/31/2019 Postmenopau marjorie bone loss 10:15 AM RETAIL PROPERTY MANAGER INTACT PTH CALCIUM GROUP Routine 07/31/2019 Postm enopausal bone loss 10:15 AM RETAIL PROPERTY MANAGER VITAMIN D, 25-OH Routine 07/31/2019 Postmenopausa l bone loss 10:15 AM RETAIL PROPERTY MANAGER PHYSICIAN CERTIFICATION Routine 07/29/2019 STATEMENT 12:01 AM RETAIL PROPERTY MANAGER REFERRAL- Routine 07/28/2019 REQUEST/RESPONSE 12:01 AM RETAIL PROPERTY MANAGER from Last 3 Months Results * FLEXIBLE SCOPE ENT (08/28/2019) Specimen Narrative Performed At Please see endoscopic findings from clinic note from 08/28/2019. [facility] Performing Organization Address City/State/Zipcode Ph one Number [facility] * CBC WITH DIFFERENTIAL (08/19/2019 2:54 PM RETAIL PROPERTY MANAGER) WBC 6.41 4.30 - 11.10 [facility] [...] MONO x10^3 0.53 0.33 - 0.92 10*3/uL [facility] EOS x10^3 0.16 0.03 - 0.39 10*3/uL [facility] BASO x10^3 <0.03 0.01 - 0.07 10*3/uL [facility] Specimen Blood Performing Organization Address City/State/Zipcode Ph one Number [facility] CLIA: [id number], [address] [place] [address] [facility] * QUANTIFERON-TB ASSAY (08/19/2019 2:54 PM RETAIL PROPERTY MANAGER) Nil 0.018 IU/mL [facility] TB1 minus Nil 0.004 IU/mL [facility] TB2 minus Nil 0.005 IU/mL [facility] Mitogen minus >10.000 IU/mL [facility] Nil SERVICES QFT Gold Plus Negative Negative [facility] Result SERVICES Specimen Blood - VENOUS Narrative Performed At Test results are calculated in accordan ce with an FDA-approved algorithm run on [facility] QuantiFERON(R) software. SERVICES The [...] results. For further information, refer to http: //www.cdc.gov/mmwr/pdf/rr/jo1707.pdf |Nil | TB1 minus | TB2 minus [...] | | + *Indeterminate Performing Organization Address City/[facility] Ph one Number [facility] CLIA: [id number], [address] [place] [address] [facility] * SEDIMENTATION RATE (08/19/2019 2:54 PM RETAIL PROPERTY MANAGER) ESR 41 (H) 0 - 20 mm/HR [facility] Specimen Blood Performing Organization Address City/[facility] Ph one Number [facility] CLIA: [id number], [address] [place] [address] [facility] * COMP. METABOLIC PANEL (22129) (08/19/2019 2:54 PM RETAIL PROPERTY MANAGER) NA 138 135 - 145 mmol/L [facility] RY SERVICES K 4.3 3.5 - 5.0 mmol/L [facility] CL 100 98 - 108 mmol/L [facility]OR[facility] Y SERVICES CO2 TOTAL 28 23 - 31 mmol/L [facility] AGAP 10 2 - 16 [facility] BUN 12 7 - 23 mg/dL [facility] GLUCOSE 97 70 - 110 mg/dL [facility] CREATININE 0.62 0.50 - 1.04 mg/dL [facility] ORY SERVICES TOTAL BILI 0.6 0.1 - 1.1 mg/dL [facility] CALCIUM 9.9 8.6 - 10.6 mg/dL [facility] RY SERVICES T PROTEIN 8.0 6.3 - 8.2 g/dL [facility] ALBUMIN 4.4 3.5 - 5.0 g/dL [facility] ALK PHOS 97 34 - 122 U/L [facility] ALTv 10 5 - 35 U/L [facility] AST(SGOT) 22 13 - 40 U/L [facility] eGFR 100.3 mL/min/1.73m2 [facility] Calculation SERVICES (Non-) eGFR 121.6 mL/min/1.73m2 [facility] Calculation SERVICES () Specimen Blood Narrative Performed At Association of Glomerular Filtration Rate (GFR) and S taging of Kidney Disease* [facility] + + +------ [...] abnormalities in imaging tests). Performing Organization Address [facility] one Number [facility] CLIA: [id number], [address] [place] [address] [facility] * C-REACTIVE PROTEIN (08/19/2019 2:49 PM RETAIL PROPERTY MANAGER) CRP 1.8 (H) <0.8 mg/dL [facility] Specimen Blood Performing Organization Address [facility] Ph one Number [facility] CLIA: [id number], [address] [place] [address] [facility] * VITAMIN D, 25-OH (07/31/2019 10:15 AM RETAIL PROPERTY MANAGER) VIT D 25OH 18 (L) 25 - 80 ng/mL [facility] Specimen Blood Narrative Performed At Deficiency: <20 ng/mL [facility] Insufficiency: 20-24 ng/mL SERVICES Optimal: 25-80 ng/mL Performing Organization Address City/State[facility] Ph one Number [facility] CLIA: [id number], [address] [place] [address] [facility] * INTACT PTH CALCIUM GROUP (07/31/2019 10:15 AM RETAIL PROPERTY MANAGER) CALCIUM 9.9 8.6 - 10.6 mg/dL [facility] RY SERVICES PTH-INTACT 62.3 12.0 - 88.0 pg/mL [facility] ORY SERVICES PTH-CA Comment: PTH IS Appropriate [facility] Interpretation for Calcium SERVICES Specimen Blood Performing Organization Address [facility] Ph one Number [facility] CLIA: [id number], [address] [place] [address] [facility] * VITAMIN B12, LEVEL (07/31/2019 10:15 AM RETAIL PROPERTY MANAGER) VIT B12 345 240 - 930 pg/mL [facility] Y SERVICES Specimen Blood Narrative Performed At Biotin has been reported to cause a pos itive bias, interpret results relative to [facility] patient's use of biotin. SERVICES Performing Organization Address [facility] Ph one Number [facility] CLIA: [id number], [address] [place] [address] [facility] * MAGNESIUM (07/31/2019 10:15 AM RETAIL PROPERTY MANAGER) MAGNESIUM 2.1 1.7 - 2.4 mg/dL [facility]OR[facility] Y SERVICES-[facility] Specimen Blood Performing Organization Address City/State/Zipcode Ph one Number [facility] CLIA: [id number], [address] [place], [place] [address] [facility] * PHYSICIAN CERTIFICATION STATEMENT (07/29/2019 12:01 AM RETAIL PROPERTY MANAGER) Specimen Performing Organization Address City/[facility] Ph one Number HIM * REFERRAL- REQUEST/RESPONSE (07/28/2019 12:01 AM RETAIL PROPERTY MANAGER) Specimen Performing Organization Address City/State/Zipcode Ph one Number HIM from Last 3 Months Insurance Type Payer Benefit Subscriber ID Effective Phone Address Plan / Dates Group Medicare Adv [facility] [id number] 2018- MANAGED MEDICARE HEALTHCARE Present DUAL COMPLETE HMO [facility] [id number] 2018- [address] [employer] H Present [address] [place] [address] Medicaid [place] MEDICAID xxxxxxxxx 2019-P [phone] [address] [place] [id number] [place] [address] amily (Home) [place] [address] [facility] 1965 [address] [address] Health (Home) [place] [address] Advance Directives Patient Mcat Tutor Explanation Type Date Recorded 0 Advance Directives 08/08/2013 8:00 AM and Living Will Power of [place] Sewer 08/08/2013 8:00 AM
--- OUTSIDE RECORDS SUMMARY | 2019-12-13 15:36 | XMS REPORT | Summary of Care ---
Author Author [facility] - Health Organization [facility] - Health Address Unknown Phone Unavailable Care Team Providers Care Industrial Economist Name Role Phone Ovidio Clarke MD PCP Reason for Visit * Reason Comments Rx Concern/Question Encounter Details Care Team Description Date [place] [address] [place] [address] Rx Concern/Question 09/22/2019 Telephone [facility]ly [facility], [facility] [address] . 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 Overview: R Avulsion fracture of lateral epicondyle of humerus 0 11/14/2017 Painful patella, unspecified laterality 11/05/2017 S/P revision of total hip 09/18/2017 Colon cancer screening 05/24/2017 Overview: Added automatically from request for jimmy solorio [id number] Hematemesis with nausea 05/24/2017 Overview: Added automatically from request for jimmy solorio [id number] Nausea and vomiting, intractability of vomiting not s pecified, unspecified 05/24/2017 vomiting type Overview: Added automatically from request for jimmy solorio [id number] ANJELICA (obstructive sleep apnea) 05/10/2017 Obesity (BMI 30-39.9) 05/01/2017 Microhematuria 02/14/2017 Complex tear of medial meniscus of right knee as curr ent injury, initial 01/18/2017 encounter Overview: Added automatically from request for jimmy solorio [id number] Elevated MCV 07/25/2016 Overview: 103.4 07/22/2016 Muscle [...] nodular opacitiy on chest xray at [facility] 05/22/2015 Hiatus hernia syndrome 04/09/2015 Overview: EGD [...] lower leg 11/25/2013 Overview: ICD10 Diagnosis Term Steel Tier Utility Knee crepitus 11/25/2013 Genu valgum, acquired 11/25/2013 Overview: ICD10 Diagnosis Term Steel Tier Utility Patellofemoral misalignment with pain 11/25/2013 Primary [...] 11/16/2010 Headache 04/08/2010 Overview: ICD10 Diagnosis Term Steel Tier Utility Nonerosive nonspecific gastritis 04/08/2010 Overview: EGD Dr. Lloyd Glossitis 02/23/2010 Tobacco use disorder 02/23/2010 Menorrhagia 05/19/2009 Vision blurred 05/19/2009 Acute upper respiratory infection 08/14/2008 Overview: ICD10 Diagnosis Term Steel Tier Utility Acute pharyngitis 08/14/2008 Screening for malignant neoplasm of cervix Overview: ICD10 Diagnosis Term Steel Tier Utility Breast screening 07/16/2008 Overview: ICD10 Diagnosis Term Steel Tier Utility Urinary tract infection, site not specified 04/29/20 08 Backache 06/02/2007 Overview: Lower back pain ICD10 Diagnosis Term Steel Tier Utility Pain in joint 06/02/2007 Overview: ICD10 Diagnosis Term Steel Tier Utility Cervicalgia 06/02/2007 Myalgia and myositis 06/02/2007 Overview: Bilateral trapezius pain ICD10 Diagnosis Term Steel Tier Utility Absence of menstruation 04/25/2007 Anemia 03/25/2007 Overview: ICD10 Diagnosis Term Steel Tier Utility Helicobacter pylori infection 06/11/2006 Overview: ICD10 Diagnosis Term Steel Tier Utility Acute peptic ulcer 06/11/2006 Overview: ICD10 Diagnosis Term Steel Tier Utility Abdominal pain 04/25/2006 Overview: ICD10 Diagnosis Term Steel Tier Utility Ankylosing spondylitis 04/25/2006 Vaginitis and vulvovaginitis 04/25/2006 Overview: ICD10 Diagnosis Term Steel Tier Utility Other, mixed, or unspecified nondependent drug [...] eatures 11/30/2005 02/11/2018 Overview: ICD10 Diagnosis Term Steel Tier Utility documented as of this encounter (statuses [...] Date Type Specialty Giuliano Gardner, ALVIN [address] [place] [address] 09/23/2019 Office Visit Orthopedic Surgery Sebastian Doe MD [address] [place] [address] [phone] 10/28/2019 Office Visit Pain Medicine 2, Jennifer Adult Infusion Nurse 10/30/2019 Nurse Visit Infusion Therapy Omar Clay, DO [address] [place] [address] [phone] 11/18/2019 Office [place] [address] [place] [address] 12/02/2019 Office Visit Family Medicine [...] UH1-44-28 / 0 / [id number] Bipolar Head, Moon Uhr Bipolar BIPOLAR Right: Hip Moon 25b91al #Uh1-44-28 - S0 head Implanted: Qty: 1 on 09/18/2017 by Sebastian Bunn MD at [facility] 07/07/2021 1023-12 / [id number] / [id number] Cancellous Cubes, [facility] Tissue BONE Right: Hip [facility] Services Freeze Dried 30 Cc Tissue #1023-12 - [id number] Services Implanted: Qty: 1 on 09/18/2017 by Sebastian Bunn MD at [facility] 03/08/2018 2018-40 / [id number] / [id number] Dbm Putty Maxxeus 10cc Cts #2018-40 BONE Right: Hip [facility] - [id number] Tissue Implanted: Qty: 1 on 09/18/2017 by Services Sebastian Bunn MD at [facility] 04/07/2022 1365-28-720 / 0 / [id number] Delta Ceramic Femoral Head 28mm +5 Head Right: Hip Depuy 06/21 Taper Depuy Ref#[id number] Synthes Implanted: Qty: 1 on 09/18/2017 by Sebastian Bunn MD at [facility] 03/29/2022 623-00-44F / 0 / [id number] Insert, Donal Trident 0deg 44mm Liner Right: Hip Moon #[id number] Implanted: Qty: 1 on 09/18/2017 by Sebastian Bunn MD at [facility] 04/24/2022 5260-5-050 / 0 / [id number] Screw Osteolock [address] SCREW Right: Hip Donal Cancellous 50mm Moon Ref#[id number] Implanted: Qty: 2 on 09/18/2017 by Sebastian Bunn MD at [facility] 06/01/2022 5260-5-020 / 0 / [id number] Screw Ostelock 3.[address] SCREW Right: Hip Donal Cancellous 20mm Moon Ref#[id number] Implanted: Qty: 1 on 09/18/2017 by Sebastian Bunn MD at [facility] 06/01/2022 5260-5-016 / 0 / [id number] Screw Osteolock 3.[address] SCREW Right: Hip Moon Cancellous 18mm Moon Ref#[id number] Implanted: Qty: 1 on 09/18/2017 by Sebastian Bunn MD at [facility] 01/02/2022 509-02-60F / 0 / [id number] Shell, Moon Tritanium Revision Shell Right: Hip Moon Acetabular #[id number] - S0 Implanted: Qty: 1 on 09/18/2017 by Sebastian Bunn MD at [facility] documented as of this encounter Results Not on filedocumented in this encounter Visit Diagnoses Diagnosis Ankylosing spondylitis, unspecified sit e of spine Painful patella, unspecified laterality Primary localized osteoarthrosis, lower leg, unspecified laterality documented in this encounter Insurance Type Payer Benefit Subscriber ID Effective Phone Address Plan / Dates Group Medicare Adv HMO [facility] [id number] 2018- MANAGED MEDICARE HEALTHCARE Present DUAL COMPLETE HMO [facility] [id number] 2018- [address] SOLUTIONS H Present [address] [place] [address] [facility] MEDICAID xxxxxxxxx 2019-P [phone] [address] [place] [facility] [id number] [facility] [place] [address] documented as of this encounter Advance Directives Patient [place]low Machine Operator Explanation Type Date Recorded 0 Advance Directives 08/08/2013 8:00 AM and Living Will Power of Machine Straw Hat Presser 08/08/2013 8:00 AM
--- OUTSIDE RECORDS SUMMARY | 2019-12-13 15:37 | XMS REPORT | Clinical Summary ---
Author Author [facility] - Health Organization [facility] - Health Address Unknown Phone Unavailable Care Team Providers Care Geoscience Laboratory Technician Name Role Phone Ovidio Clarke MD PCP [...] Overview: Added automatically from request for marquez Veoh [id number] Cervical spondylosis with radiculopathy 01/01/2019 Overview: Added automatically from request for marquez Veoh [id number] Mixed hyperlipidemia 08/13/2018 Overview: LDL 140 07/17/2018 Left tennis elbow 06/17/2018 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 Overview: R Avulsion fracture of lateral epicondyle of humerus 0 11/14/2017 Painful patella, unspecified laterality 11/05/2017 S/P revision of total hip 09/18/2017 Colon cancer screening 05/24/2017 Overview: Added automatically from request for marquez Veoh [id number] Hematemesis with nausea 05/24/2017 Overview: Added automatically from request for marquez Veoh [id number] Nausea and vomiting, intractability of vomiting not s pecified, unspecified 05/24/2017 vomiting type Overview: Added automatically from request for [employer] [id number] ANJELICA (obstructive sleep apnea) 05/10/2017 Obesity (BMI 30-39.9) 05/01/2017 Microhematuria 02/14/2017 Complex tear of medial meniscus of right knee as curr ent injury, initial 01/18/2017 encounter Overview: Added automatically from request for jimmy solorio [id number] Elevated MCV 07/25/2016 Overview: 103.4 07/22/2016 Muscle [...] lobe nodular opacitiy on chest xray at [facility] 05/22/2015 Hiatus hernia syndrome 04/09/2015 Overview: EGD 03/23/2015 [facility] screening mammogram 01/06/2015 Immunization deficiency 10/09/2014 Overview: [...] lower leg 11/25/2013 Overview: ICD10 Diagnosis Term Inspector Rubber Stamp Die Utility Knee crepitus 11/25/2013 Genu valgum, acquired 11/25/2013 Overview: ICD10 Diagnosis Term Inspector Rubber Stamp Die Utility Patellofemoral misalignment with pain 11/25/2013 Primary [...] 11/16/2010 Headache 04/08/2010 Overview: ICD10 Diagnosis Term Inspector Rubber Stamp Die Utility Nonerosive nonspecific gastritis 04/08/2010 Overview: EGD Dr. Lloyd Glossitis 02/23/2010 Tobacco use disorder 02/23/2010 Menorrhagia 05/19/2009 Vision blurred 05/19/2009 Acute upper respiratory infection 08/14/2008 Overview: ICD10 Diagnosis Term Inspector Rubber Stamp Die Utility Acute pharyngitis 08/14/2008 Screening for malignant neoplasm of cervix 9 Overview: ICD10 Diagnosis Term Inspector Rubber Stamp Die Utility Breast screening 07/16/2008 Overview: ICD10 Diagnosis Term Inspector Rubber Stamp Die Utility Urinary tract infection, site not specified 04/29/20 08 Backache 06/02/2007 Overview: Lower back pain ICD10 Diagnosis Term Inspector Rubber Stamp Die Utility Pain in joint 06/02/2007 Overview: ICD10 Diagnosis Term Inspector Rubber Stamp Die Utility Cervicalgia 06/02/2007 Myalgia and myositis 06/02/2007 Overview: Bilateral trapezius pain ICD10 Diagnosis Term Inspector Rubber Stamp Die Utility Absence of menstruation 04/25/2007 Anemia 03/25/2007 Overview: ICD10 Diagnosis Term Inspector Rubber Stamp Die Utility Helicobacter pylori infection 06/11/2006 Overview: ICD10 Diagnosis Term Inspector Rubber Stamp Die Utility Acute peptic ulcer 06/11/2006 Overview: ICD10 Diagnosis Term Inspector Rubber Stamp Die Utility Abdominal pain 04/25/2006 Overview: ICD10 Diagnosis Term Inspector Rubber Stamp Die Utility Ankylosing spondylitis 04/25/2006 Vaginitis and vulvovaginitis 04/25/2006 Overview: ICD10 Diagnosis Term Inspector Rubber Stamp Die Utility Other, mixed, or unspecified nondependent drug abuse, continuous 11/30/2005 Resolved Problems Problem Noted Date Resolved Date Arm laceration, right, subsequent encounter 04/13/2014 04/13/2014 Syncope and collapse 02/27/2007 06/28/2014 Bipolar I disorder, most recent episode (or current) unspec ified 01/03/2007 01/23/2018 Overview: Dr. 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 11/30/2005 02/11/2018 Overview: ICD10 Diagnosis Term Inspector Rubber Stamp Die Utility Encounters Care Team Description Date Type [...] spondylitis of multiple sites in spine 08/19/2019 Assembling Fabricator Phlebotomy Visit Omar Clay DO Ankylosing spondylitis [...] Bentley FNP Vls-Lab Postmenopausal bone loss 07/31/2019 Assembling Fabricator Phlebotomy Visit Giuliano Gardner FNP Carpal tunnel syndrome on right (Primary Dx); Postmenopausal bone loss; Ankylosing spondylitis of multiple sites in spine 07/31/2019 Office Visit Orthopedic Surgery Sebastian Doe MD Cervical spondylosis with radiculopathy (Primary Dx); Ankylosing spondylitis, unspecified site of spine; Carpal tunnel syndrome of right wrist; Chronic pain syndrome 07/29/2019 Office Visit Pain Medicine Doctor Unassigned, Rosine 07/28/2019 Orders Only from Last 3 Months [...] of Treatment Care Team Description Date Type Oral HygienistSebastian Doe MD [address] [place] [address] [phone] 10/28/2019 Telemedicine Pain Medicine Visit Omar Clay, DO [address] [place] [address] [phone] Jennifer Oreilly Adult Infusion Nurse 10/30/2019 Nurse Visit Infusion Therapy Omar Clay, DO [address] [place] [address] [phone] 11/18/2019 Telemedicine [place] [address] [place] [address] 11/28/2019 Telemedicine Family [place] [address] [place] [phone] 01/16/2020 Appointment Radiology JayRadhaBonychris Giuliano, PURSE MAKER [address] [place] [address] [phone] 01/16/2020 Appointment Radiology Health Maintenance Due Date [...] Donal Uhr Bipolar BIPOLAR Right: Hip Donal 54k01rb #Uh1-44-28 - S0 head Implanted: Qty: 1 on 09/18/2017 by Sebastian Bunn MD at [facility] 07/07/2021 1023-12 / [id number] / [id number] Cancellous Cubes, Community Tissue BONE Right: Hip [facility] Services Freeze Dried 30 Cc Tissue #1023-12 - [id number] Services Implanted: Qty: 1 on 09/18/2017 by Sebastian Bunn MD at [facility] 03/08/2018 2018-40 / [id number] / [id number] Dbm Putty Maxxeus 10cc Cts #2018-40 BONE Right: Hip [facility] - [id number] Tissue Implanted: Qty: 1 on 09/18/2017 by Services Sebastian Bunn MD at [facility] 04/07/2022 1365-28-720 / 0 / [id number] Delta Ceramic Femoral Head 28mm +5 Head Right: Hip Depuy 06/21 Taper Depuy Ref#[id number] Synthes Implanted: Qty: 1 on 09/18/2017 by Sebastian Bunn MD at [facility] 03/29/2022 623-00-44F / 0 / [id number] Insert, Donal Trident 0deg 44mm Liner Right: Hip Genes[place] #623-00-44f Implanted: Qty: 1 on 09/18/2017 by Sebastian Bunn MD at [facility] 04/24/2022 5260-5-050 / 0 / [id number] Screw Osteolock 3.[address] SCREW Right: Hip [place] Cancellous 50mm Donal Ref#[id number] Implanted: Qty: 2 on 09/18/2017 by Sebastian Bunn MD at [facility] 06/01/2022 5260-5-020 / 0 / [id number] Screw Ostelock 3.[address] SCREW Right: Hip Donal Cancellous 20mm [place] Ref#[id number] Implanted: Qty: 1 on 09/18/2017 by Sebastian Bunn MD at [facility] 06/01/2022 5260-5-016 / 0 / [id number] Screw Osteolock 3.[address] SCREW Right: Hip Donal Cancellous 18mm [place] Ref#[id number] Implanted: Qty: 1 on 09/18/2017 by Sebastian Bunn MD at [facility] 01/02/2022 509-02-60F / 0 / [id number] Shell, Donal Tritanium Revision Shell Right: Hip [place] Acetabular #509-02-60f - S0 Implanted: Qty: 1 on 09/18/2017 by Sebastian Bunn MD at [facility] Procedures Comments Procedure Name Priority Date/Time Associated Diag nosis FLEXIBLE SCOPE ENT Routine 08/28/2019 Adenoid hyp ertrophy CBC WITH DIFFERENTIAL Routine 08/19/2019 Ankylosi ng spondylitis of 2:54 PM MANAGER SALES TRAINING multiple sites in spine QUANTIFERON-TB ASSAY Routine 08/19/2019 Ankylosin g spondylitis of 2:54 PM MANAGER SALES TRAINING multiple sites in spine COMP. METABOLIC PANEL Routine 08/19/2019 Ankylosi ng spondylitis of (66412) 2:54 PM MANAGER SALES TRAINING multiple sites in s pine SEDIMENTATION RATE Routine 08/19/2019 Ankylosing spondylitis of 2:54 PM MANAGER SALES TRAINING multiple sites in spine CBC WITH DIFFERENTIAL Routine 08/19/2019 Ankylosi ng spondylitis of 2:54 PM MANAGER SALES TRAINING multiple sites in spine C-REACTIVE PROTEIN Routine 08/19/2019 Ankylosing spondylitis of 2:49 PM MANAGER SALES TRAINING multiple sites in spine MAGNESIUM Routine 07/31/2019 Postmenopausal bone loss 10:15 AM MANAGER SALES TRAINING VITAMIN B12, LEVEL Routine 07/31/2019 Postmenopau marjorie bone loss 10:15 AM MANAGER SALES TRAINING INTACT PTH CALCIUM GROUP Routine 07/31/2019 Postm enopausal bone loss 10:15 AM MANAGER SALES TRAINING VITAMIN D, 25-OH Routine 07/31/2019 Postmenopausa l bone loss 10:15 AM MANAGER SALES TRAINING PHYSICIAN CERTIFICATION Routine 07/29/2019 STATEMENT 12:01 AM MANAGER SALES TRAINING REFERRAL- Routine 07/28/2019 REQUEST/RESPONSE 12:01 AM MANAGER SALES TRAINING from Last 3 Months Results * FLEXIBLE SCOPE ENT (08/28/2019) Specimen Narrative Performed At Please see endoscopic findings from clinic note from 08/28/2019. [facility] Performing Organization Address City/State/Zipcode Ph one Number [facility] * CBC WITH DIFFERENTIAL (08/19/2019 2:54 PM MANAGER SALES TRAINING) WBC 6.41 4.30 - 11.10 [facility] [...] MONO x10^3 0.53 0.33 - 0.92 10*3/uL [facility] EOS x10^3 0.16 0.03 - 0.39 10*3/uL [facility] BASO x10^3 <0.03 0.01 - 0.07 10*3/uL [facility] Specimen Blood Performing Organization Address City/State/Zipcode Ph one Number [facility] CLIA: [id number], [address] [place] [address] [facility] * QUANTIFERON-TB ASSAY (08/19/2019 2:54 PM MANAGER SALES TRAINING) Nil 0.018 IU/mL [facility] TB1 minus Nil 0.004 IU/mL [facility] TB2 minus Nil 0.005 IU/mL [facility] SERVICES Mitogen minus >10.000 IU/mL [facility] Nil SERVICES QFT Gold Plus Negative Negative [facility] Result SERVICES Specimen Blood - VENOUS Narrative Performed At Test results are calculated in accordan ce with an FDA-approved algorithm run on [facility] QuantiFERON(R) software. SERVICES The [...] results. For further information, refer to http: //www.cdc.gov/mmwr/pdf/rr/bd8676.pdf |Nil | TB1 minus | TB2 minus [...] | | + *Indeterminate Performing Organization Address City/[facility] Ph one Number [facility] CLIA: [id number], [address] [place] [address] [facility] * SEDIMENTATION RATE (08/19/2019 2:54 PM MANAGER SALES TRAINING) ESR 41 (H) 0 - 20 mm/HR [facility] Specimen Blood Performing Organization Address City/[facility] Ph one Number [facility] CLIA: [id number], [address] [place] [address] [facility] * COMP. METABOLIC PANEL (23748) (08/19/2019 2:54 PM MANAGER SALES TRAINING) NA 138 135 - 145 mmol/L [facility] RY SERVICES K 4.3 3.5 - 5.0 mmol/L [facility] RY SERVICES CL 100 98 - 108 mmol/L [facility] CO2 TOTAL 28 23 - 31 mmol/L [facility] AGAP 10 2 - 16 [facility] BUN 12 7 - 23 mg/dL [facility] GLUCOSE 97 70 - 110 mg/dL [facility] CREATININE 0.62 0.50 - 1.04 mg/dL [facility] ORY SERVICES TOTAL BILI 0.6 0.1 - 1.1 mg/dL [facility] CALCIUM 9.9 8.6 - 10.6 mg/dL [facility] RY SERVICES T PROTEIN 8.0 6.3 - 8.2 g/dL [facility] ALBUMIN 4.4 3.5 - 5.0 g/dL [facility] ALK PHOS 97 34 - 122 U/L [facility] ALTv 10 5 - 35 U/L [facility] AST(SGOT) 22 13 - 40 U/L [facility] eGFR 100.3 mL/min/1.73m2 [facility] Calculation SERVICES (Non-) eGFR 121.6 mL/min/1.73m2 [facility] Calculation SERVICES () Specimen Blood Narrative Performed At Association of Glomerular Filtration Rate (GFR) and S taging of Kidney Disease* [facility] + + +------ + [...] abnormalities in imaging tests). Performing Organization Address [facility] one Number [facility] CLIA: [id number], [address] [place] [address] [facility] * C-REACTIVE PROTEIN (08/19/2019 2:49 PM MANAGER SALES TRAINING) CRP 1.8 (H) <0.8 mg/dL [facility] SERVICES Specimen Blood Performing Organization Address [facility] Ph one Number [facility] CLIA: [id number], [address] [place] [address] [facility] * VITAMIN D, 25-OH (07/31/2019 10:15 AM MANAGER SALES TRAINING) VIT D 25OH 18 (L) 25 - 80 ng/mL [facility] SERVICES Specimen Blood Narrative Performed At Deficiency: <20 ng/mL [facility] Insufficiency: 20-24 ng/mL SERVICES Optimal: 25-80 ng/mL Performing Organization Address City/[facility] Ph one Number [facility] CLIA: [id number], [address] [place] [address] [facility] * INTACT PTH CALCIUM GROUP (07/31/2019 10:15 AM MANAGER SALES TRAINING) CALCIUM 9.9 8.6 - 10.6 mg/dL [facility] RY SERVICES PTH-INTACT 62.3 12.0 - 88.0 pg/mL [facility] ORY SERVICES PTH-CA Comment: PTH IS Appropriate [facility] Interpretation for Calcium SERVICES Specimen Blood Performing Organization Address [facility] Ph one Number [facility] CLIA: [id number], [address] [place] [address] [facility] * VITAMIN B12, LEVEL (07/31/2019 10:15 AM MANAGER SALES TRAINING) VIT B12 345 240 - 930 pg/mL [facility] SERVICES Specimen Blood Narrative Performed At Biotin has been reported to cause a pos itive bias, interpret results relative to [facility] patient's use of biotin. SERVICES Performing Organization Address [facility] Ph one Number [facility] CLIA: [id number], [address] [place] [address] [facility] * MAGNESIUM (07/31/2019 10:15 AM MANAGER SALES TRAINING) MAGNESIUM 2.1 1.7 - 2.4 mg/dL [facility] Y SERVICES-[facility] Specimen Blood Performing Organization Address City/State/Zipcode Ph one Number [facility] CLIA: [id number], [address] [place], [place] [address] SERVICES-[facility] * PHYSICIAN CERTIFICATION STATEMENT (07/29/2019 12:01 AM MANAGER SALES TRAINING) Specimen Performing Organization Address City/[facility] Ph one Number HIM * REFERRAL- REQUEST/RESPONSE (07/28/2019 12:01 AM MANAGER SALES TRAINING) Specimen Performing Organization Address City/State/Zipcode Ph one Number HIM from Last 3 Months Insurance Type Payer Benefit Subscriber ID Effective Phone Address Plan / Dates Group Medicare Adv HMO [facility] [id number] 2018- MANAGED MEDICARE HEALTHCARE Present DUAL COMPLETE HMO [facility] [employer] [id number] 2018- P O BOX SOLUTIONS H Present [address] [place] [address] Medicaid [employer] MEDICAID xxxxxxxxx 2019-P [phone] [address] [place] resent [id number] [place] [address] amily (Home) [place] [address] Juan [facility] Self [phone] [address] Health (Home) [place] [address] Advance Directives Patient Guest Services Agent Explanation Type Date Recorded 0 Advance Directives 08/08/2013 8:00 AM and Living Will Power of Needle Grinder 08/08/2013 8:00 AM
--- OUTSIDE RECORDS SUMMARY | 2019-12-13 15:37 | XMS REPORT | Summary of Care ---
Author Author [facility] - Health Organization [facility] - Health Address Unknown Phone Unavailable Care Team Providers Care Bee Keeper Name Role Phone Ovidio Clarke MD PCP Reason for Visit * Reason Comments Appointment pt states she never receive d the call from Dr. Doe Encounter Details Care Team Description Date Type Department Sebastian Doe MD [id number] [place] [address] Appointment (pt states she never receive d the call from Dr. Doe) 10/28/2019 Telephone [facility] Health Anest[facility] [address] [place] [phone] Allergies Comments Active Allergy Reactions Severity Noted Date Aspirin Hives 03/21/2012 Sulfa (Sulfonamide Hives 11/29/2005 Antibiotics) documented as of this encounter (statuses as of 10/29/2019) Medications End Date Status Medication Sig Dispensed [...] as of this encounter (statuses as of 10/29/2019) Active Problems Problem Noted Date Acute vaginitis 10/08/2019 Essential hypertension 03/19/2019 Carpal tunnel syndrome on right 03/19/2019 Overview: EMG 02/18/2019 Special screening for malignant neoplasms, colon Overview: Added automatically from request for jimmy solorio [id number] Cervical spondylosis with radiculopathy 01/01/2019 Overview: Added automatically from request for jimmy solorio [id number] Mixed hyperlipidemia 08/13/2018 Overview: LDL 140 07/17/2018 Left tennis elbow 06/17/2018 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 Overview: R Avulsion fracture of lateral epicondyle of humerus 0 11/14/2017 Painful patella, unspecified laterality 11/05/2017 S/P revision of total hip 09/18/2017 Colon cancer screening 05/24/2017 Overview: Added automatically from request for [email or web address] [id number] Hematemesis with nausea 05/24/2017 Overview: Added automatically from request for marquez TastyKhanaery [id number] Nausea and vomiting, intractability of vomiting not s pecified, unspecified 05/24/2017 vomiting type Overview: Added automatically from request for marquez TastyKhanaery [id number] ANJELICA (obstructive sleep apnea) 05/10/2017 Obesity (BMI 30-39.9) 05/01/2017 Microhematuria 02/14/2017 Complex tear of medial meniscus of right knee as curr ent injury, initial 01/18/2017 encounter Overview: Added automatically from request for [email or web address] [email or web address] [id number] Elevated MCV 07/25/2016 Overview: 103.4 07/22/2016 Muscle [...] lower leg 11/25/2013 Overview: ICD10 Diagnosis Term Systems Spec Utility Knee crepitus 11/25/2013 Genu valgum, acquired 11/25/2013 Overview: ICD10 Diagnosis Term Systems Spec Utility Patellofemoral misalignment with pain 11/25/2013 Primary [...] 11/16/2010 Headache 04/08/2010 Overview: ICD10 Diagnosis Term Systems Spec Utility Nonerosive nonspecific gastritis 04/08/2010 Overview: EGD Dr. Lloyd Glossitis 02/23/2010 Tobacco use disorder 02/23/2010 Menorrhagia 05/19/2009 Vision blurred 05/19/2009 Acute upper respiratory infection 08/14/2008 Overview: ICD10 Diagnosis Term Systems Spec Utility Acute pharyngitis 08/14/2008 Screening for malignant neoplasm of cervix 9 Overview: ICD10 Diagnosis Term Systems Spec Utility Breast screening 07/16/2008 Overview: ICD10 Diagnosis Term Systems Spec Utility Urinary tract infection, site not specified 04/29/20 08 Backache 06/02/2007 Overview: Lower back pain ICD10 Diagnosis Term Systems Spec Utility Pain in joint 06/02/2007 Overview: ICD10 Diagnosis Term Systems Spec Utility Cervicalgia 06/02/2007 Myalgia and myositis 06/02/2007 Overview: Bilateral trapezius pain ICD10 Diagnosis Term Systems Spec Utility Absence of menstruation 04/25/2007 Anemia 03/25/2007 Overview: ICD10 Diagnosis Term Systems Spec Utility Helicobacter pylori infection 06/11/2006 Overview: ICD10 Diagnosis Term Systems Spec Utility Acute peptic ulcer 06/11/2006 Overview: ICD10 Diagnosis Term Systems Spec Utility Abdominal pain 04/25/2006 Overview: ICD10 Diagnosis Term Systems Spec Utility Ankylosing spondylitis 04/25/2006 Vaginitis and vulvovaginitis 04/25/2006 Overview: ICD10 Diagnosis Term Systems Spec Utility Other, mixed, or unspecified nondependent drug abuse, continuous 11/30/2005 documented as of this encounter (statuses as of 10/29/2019) Resolved Problems Problem Noted Date Resolved Date Arm laceration, right, subsequent encounter 04/13/2014 04/13/2014 Syncope and collapse 02/27/2007 06/28/2014 Bipolar I disorder, most recent episode (or current) unspec ified 01/03/2007 01/23/2018 Overview: Dr. 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 11/30/2005 02/11/2018 Overview: ICD10 Diagnosis Term Systems Spec Utility documented as of this encounter (statuses as of 10/29/2019) Immunizations Name Administration Dates Next Due Hepatitis [...] Description Date Type Specialty Omar Clay, DO [address] [place] [id number] [phone] 2, Jennifer Adult Infusion Nurse 10/30/2019 Nurse Visit Infusion Therapy Omar Clay, DO [address] [place] [address] [phone] 11/18/2019 Telemedicine [place] [address] [place] [phone] 11/28/2019 Telemedicine [place] [address] [place] [phone] 01/16/2020 Appointment Radiology Giuliano Gardner, DIRECTOR OF RETAIL OPERATIONS [address] [place] [address] [phone] 01/16/2020 Appointment Radiology Health Maintenance Due Date [...] UH1-44-28 / 0 / [id number] Bipolar Head, Cary Uhr Bipolar BIPOLAR Right: Hip Cary 65q48ah #Uh1-44-28 - S0 head Implanted: Qty: 1 on 09/18/2017 by Sebastian Bunn MD at [facility] 07/07/2021 1023-12 / [id number] / [id number] Cancellous Cubes, Community Tissue BONE Right: Hip [facility] Freeze Dried 30 Cc Tissue #1023-12 - [id number] Services Implanted: Qty: 1 on 09/18/2017 by Sebastian Bunn MD at [facility] 03/08/2018 2018-40 / [id number] / [id number] Dbm Putty Maxxeus 10cc Cts #2018-40 BONE Right: Hip [facility] - [id number] Tissue Implanted: Qty: 1 on 09/18/2017 by Services Sebastian Bunn MD at [facility] 04/07/2022 1365-28-720 / 0 / [id number] Delta Ceramic Femoral Head 28mm +5 Head Right: Hip Depuy 06/21 Taper Depuy Ref#[id number] Synthes Implanted: Qty: 1 on 09/18/2017 by Sebastian Bunn MD at [facility] 03/29/2022 623-00-44F / 0 / [id number] Insert, Donal Trident 0deg 44mm Liner Right: Hip Donal #[id number] Implanted: Qty: 1 on 09/18/2017 by Sebastian Bunn MD at [facility] 04/24/2022 5260-5-050 / 0 / [id number] Screw Osteolock [address] SCREW Right: Hip Donal Cancellous 50mm Donal Ref#[id number] Implanted: Qty: 2 on 09/18/2017 by Sebastian Bunn MD at [facility] 06/01/2022 5260-5-020 / 0 / [id number] Screw Ostelock 3.[address] SCREW Right: Hip Cary Cancellous 20mm Donal Ref#[id number] Implanted: Qty: 1 on 09/18/2017 by Sebastian Bunn MD at [facility] 06/01/2022 5260-5-016 / 0 / [id number] Screw Osteolock 3.[address] SCREW Right: Hip Donal Cancellous 18mm Cary Ref#[id number] Implanted: Qty: 1 on 09/18/2017 by Sebastian Bunn MD at [facility] 01/02/2022 509-02-60F / 0 / [id number] Shell, Cary Tritanium Revision Shell Right: Hip Cary Acetabular #[id number] - S0 Implanted: Qty: 1 on 09/18/2017 by Sebastian Bunn MD at [facility] documented as of this encounter Results Not on filedocumented in this encounter Insurance Type Payer Benefit Subscriber ID Effective Phone Address Plan / Dates Group Medicare Adv HMO [facility] [id number] 2018- MANAGED MEDICARE HEALTHCARE Present DUAL COMPLETE HMO [facility] [id number] 2018- [address] [employer] H Present [address] [place] [address] Medicaid [facility] MEDICAID xxxxxxxxx 2019-P [phone] [address] [place] [id number] [place] [address] documented as of this encounter Advance Directives Patient Media Liaison Officer Explanation Type Date Recorded 0 Advance Directives 08/08/2013 8:00 AM and Living Will Power of Managed Care Coordinator 08/08/2013 8:00 AM
--- OUTSIDE RECORDS SUMMARY | 2019-12-13 15:37 | XMS REPORT | Clinical Summary ---
Author Author [facility] - Health Organization [facility] - Health Address Unknown Phone Unavailable Care Team Providers Care Flexible Nanny Name Role Phone Ovidio Clarke MD PCP [...] Overview: Added automatically from request for marquez POKKT [id number] Cervical spondylosis with radiculopathy 01/01/2019 Overview: Added automatically from request for marquez POKKT [id number] Mixed hyperlipidemia 08/13/2018 Overview: LDL 140 07/17/2018 Left tennis elbow 06/17/2018 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 Overview: R Avulsion fracture of lateral epicondyle of humerus 0 11/14/2017 Painful patella, unspecified laterality 11/05/2017 S/P revision of total hip 09/18/2017 Colon cancer screening 05/24/2017 Overview: Added automatically from request for marquez POKKT [id number] Hematemesis with nausea 05/24/2017 Overview: Added automatically from request for marquez POKKT [id number] Nausea and vomiting, intractability of vomiting not s pecified, unspecified 05/24/2017 vomiting type Overview: Added automatically from request for [employer] [id number] ANJELICA (obstructive sleep apnea) 05/10/2017 Obesity (BMI 30-39.9) 05/01/2017 Microhematuria 02/14/2017 Complex tear of medial meniscus of right knee as curr ent injury, initial 01/18/2017 encounter Overview: Added automatically from request for jimmy solorio [id number] Elevated MCV 07/25/2016 Overview: 103.4 07/22/2016 Muscle [...] lower leg 11/25/2013 Overview: ICD10 Diagnosis Term Toe Stapler Utility Knee crepitus 11/25/2013 Genu valgum, acquired 11/25/2013 Overview: ICD10 Diagnosis Term Toe Stapler Utility Patellofemoral misalignment with pain 11/25/2013 Primary [...] 11/16/2010 Headache 04/08/2010 Overview: ICD10 Diagnosis Term Toe Stapler Utility Nonerosive nonspecific gastritis 04/08/2010 Overview: EGD Dr. Lloyd Glossitis 02/23/2010 Tobacco use disorder 02/23/2010 Menorrhagia 05/19/2009 Vision blurred 05/19/2009 Acute upper respiratory infection 08/14/2008 Overview: ICD10 Diagnosis Term Toe Stapler Utility Acute pharyngitis 08/14/2008 Screening for malignant neoplasm of cervix 9 Overview: ICD10 Diagnosis Term Toe Stapler Utility Breast screening 07/16/2008 Overview: ICD10 Diagnosis Term Toe Stapler Utility Urinary tract infection, site not specified 04/29/20 08 Backache 06/02/2007 Overview: Lower back pain ICD10 Diagnosis Term Toe Stapler Utility Pain in joint 06/02/2007 Overview: ICD10 Diagnosis Term Toe Stapler Utility Cervicalgia 06/02/2007 Myalgia and myositis 06/02/2007 Overview: Bilateral trapezius pain ICD10 Diagnosis Term Toe Stapler Utility Absence of menstruation 04/25/2007 Anemia 03/25/2007 Overview: ICD10 Diagnosis Term Toe Stapler Utility Helicobacter pylori infection 06/11/2006 Overview: ICD10 Diagnosis Term Toe Stapler Utility Acute peptic ulcer 06/11/2006 Overview: ICD10 Diagnosis Term Toe Stapler Utility Abdominal pain 04/25/2006 Overview: ICD10 Diagnosis Term Toe Stapler Utility Ankylosing spondylitis 04/25/2006 Vaginitis and vulvovaginitis 04/25/2006 Overview: ICD10 Diagnosis Term Toe Stapler Utility Other, mixed, or unspecified nondependent drug abuse, continuous 11/30/2005 Resolved Problems Problem Noted Date Resolved Date Arm laceration, right, subsequent encounter 04/13/2014 04/13/2014 Syncope and collapse 02/27/2007 06/28/2014 Bipolar I disorder, most recent episode (or current) unspec ified 01/03/2007 01/23/2018 Overview: Dr. 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 11/30/2005 02/11/2018 Overview: ICD10 Diagnosis Term Toe Stapler Utility Encounters Care Team Description Date Type [...] spondylitis of multiple sites in spine 08/19/2019 [employer] Operator Phlebotomy Visit Omar Clay DO Ankylosing spondylitis [...] Bentley FNP Vls-Lab Postmenopausal bone loss 07/31/2019 [employer] Operator Phlebotomy Visit Giuliano Gardner FNP Carpal tunnel syndrome on right (Primary Dx); Postmenopausal bone loss; Ankylosing spondylitis of multiple sites in spine 07/31/2019 Office Visit Orthopedic Surgery Sebastian Doe MD Cervical spondylosis with radiculopathy (Primary Dx); Ankylosing spondylitis, unspecified site of spine; Carpal tunnel syndrome of right wrist; Chronic pain syndrome 07/29/2019 Office Visit Pain Medicine Doctor Unassigned, [place] 07/28/2019 Orders Only from Last 3 Months [...] of Treatment Care Team Description Date Type Stack MatcherSebastian Doe MD [id number] [place] [address] [phone] 10/28/2019 Telemedicine Pain Medicine Visit Omar Clay, DO [address] [place] [address] [phone] Jennifer Oreilly Adult Infusion Nurse 10/30/2019 Nurse Visit Infusion Therapy Omar Clay, DO [address] [place] [address] [phone] 11/18/2019 Telemedicine [place] [address] [place] [address] 11/28/2019 Telemedicine Family [place] [address] [place] [phone] 01/16/2020 Appointment Radiology JayRadhaBonychris Giuliano, MOTOR VEHICLE EXAMINER [address] [place] [address] [phone] 01/16/2020 Appointment Radiology Health Maintenance Due Date [...] Donal Uhr Bipolar BIPOLAR Right: Hip Donal [id number] #[id number] - S0 head Implanted: Qty: 1 on 09/18/2017 by Sebastian Bunn MD at [facility] 07/07/2021 1023-12 / [id number] / [id number] Cancellous Cubes, Community Tissue BONE Right: Hip [facility] Services Freeze Dried 30 Cc Tissue #1023-12 - [id number] Services Implanted: Qty: 1 on 09/18/2017 by Sebastian Bunn MD at [facility] 03/08/2018 2018-40 / [id number] / [id number] Dbm Putty Maxxeus 10cc Cts #2018-40 BONE Right: Hip [facility] - [id number] Tissue Implanted: Qty: 1 on 09/18/2017 by Services Sebastian Bunn MD at [facility] 04/07/2022 [id number] / 0 / [id number] Delta Ceramic Femoral Head 28mm +5 Head Right: Hip Depuy 06/21 Taper Depuy Ref#[id number] Synthes Implanted: Qty: 1 on 09/18/2017 by Sebastian Bunn MD at [facility] 03/29/2022 [id number] / 0 / [id number] Insert, Donla Trident 0deg 44mm Liner Right: Hip [place] #[id number] Implanted: Qty: 1 on 09/18/2017 by Sebastian Bunn MD at [facility] 04/24/2022 5260-5-050 / 0 / [id number] Screw Osteolock [address] SCREW Right: Hip [place] Cancellous 50mm Donal Ref#[id number] Implanted: Qty: 2 on 09/18/2017 by Sebastian Bunn MD at [facility] 06/01/2022 5260-5-020 / 0 / [id number] Screw Ostelock 3.[address] SCREW Right: Hip Donal Cancellous 20mm [place] Ref#[id number] Implanted: Qty: 1 on 09/18/2017 by Sebastian Bunn MD at [facility] 06/01/2022 5260-5-016 / 0 / [id number] Screw Osteolock 3.[address] SCREW Right: Hip Donal Cancellous 18mm [place] Ref#[id number] Implanted: Qty: 1 on 09/18/2017 by Sebastian Bunn MD at [facility] 01/02/2022 [id number] / 0 / [id number] Shell, Donal Tritanium Revision Shell Right: Hip [place] Acetabular #[id number] - [id number] Implanted: Qty: 1 on 09/18/2017 by Sebastian Bunn MD at [facility] Procedures Comments Procedure Name Priority Date/Time Associated Diag nosis FLEXIBLE SCOPE ENT Routine 08/28/2019 Adenoid hyp ertrophy CBC WITH DIFFERENTIAL Routine 08/19/2019 Ankylosi ng spondylitis of 2:54 PM RN [facility] multiple sites in spine QUANTIFERON-TB ASSAY Routine 08/19/2019 Ankylosin g spondylitis of 2:54 PM RN [facility] multiple sites in spine COMP. METABOLIC PANEL Routine 08/19/2019 Ankylosi ng spondylitis of (18882) 2:54 PM RN [facility] multiple sites in s pine SEDIMENTATION RATE Routine 08/19/2019 Ankylosing spondylitis of 2:54 PM RN [facility] multiple sites in spine CBC WITH DIFFERENTIAL Routine 08/19/2019 Ankylosi ng spondylitis of 2:54 PM RN [facility] multiple sites in spine C-REACTIVE PROTEIN Routine 08/19/2019 Ankylosing spondylitis of 2:49 PM RN [facility] multiple sites in spine MAGNESIUM Routine 07/31/2019 Postmenopausal bone loss 10:15 AM RN [facility] VITAMIN B12, LEVEL Routine 07/31/2019 Postmenopau marjorie bone loss 10:15 AM RN [facility] INTACT PTH CALCIUM GROUP Routine 07/31/2019 Postm enopausal bone loss 10:15 AM RN [facility] VITAMIN D, 25-OH Routine 07/31/2019 Postmenopausa l bone loss 10:15 AM RN [facility] PHYSICIAN CERTIFICATION Routine 07/29/2019 STATEMENT 12:01 AM RN [facility] REFERRAL- Routine 07/28/2019 REQUEST/RESPONSE 12:01 AM RN [facility] from Last 3 Months Results * FLEXIBLE SCOPE ENT (08/28/2019) Specimen Narrative Performed At Please see endoscopic findings from clinic note from 08/28/2019. [facility] Performing Organization Address City/State/Zipcode Ph one Number [facility] * CBC WITH DIFFERENTIAL (08/19/2019 2:54 PM RN [facility] MA[facility]) WBC 6.41 4.30 - 11.10 [facility] [...] MONO x10^3 0.53 0.33 - 0.92 10*3/uL [facility] EOS x10^3 0.16 0.03 - 0.39 10*3/uL [facility] BASO x10^3 <0.03 0.01 - 0.07 10*3/uL [facility] Specimen Blood Performing Organization Address City/State/Zipcode Ph one Number [facility] CLIA: [id number], [address] [place] [address] [facility] * QUANTIFERON-TB ASSAY (08/19/2019 2:54 PM RN [facility] MA[facility]) Nil 0.018 IU/mL [facility] TB1 minus Nil 0.004 IU/mL [facility] TB2 minus Nil 0.005 IU/mL [facility] Mitogen minus >10.000 IU/mL [facility] Nil SERVICES QFT Gold Plus Negative Negative [facility] Result SERVICES Specimen Blood - VENOUS Narrative Performed At Test results are calculated in accordan ce with an FDA-approved algorithm run on [facility] QuantiFERON(R) software. SERVICES [...] results. For further information, refer to http: //www.cdc.gov/mmwr/pdf/rr/mg5507.pdf |Nil | TB1 minus | TB2 minus [...] | | + *Indeterminate Performing Organization Address City/[facility] Ph one Number [facility] CLIA: [id number], [address] [place] [address] [facility] * SEDIMENTATION RATE (08/19/2019 2:54 PM RN [facility]) ESR 41 (H) 0 - 20 mm/HR [facility] Specimen Blood Performing Organization Address City/[facility] Ph one Number [facility] CLIA: [id number], [address] [place] [address] [facility] * COMP. METABOLIC PANEL (72104) (08/19/2019 2:54 PM RN [facility]) NA 138 135 - 145 mmol/L [facility] RY SERVICES K 4.3 3.5 - 5.0 mmol/L [facility] CL 100 98 - 108 mmol/L [facility] Y [facility] CO2 TOTAL 28 23 - 31 mmol/L [facility] AGAP 10 2 - 16 [facility] BUN 12 7 - 23 mg/dL [facility] GLUCOSE 97 70 - 110 mg/dL [facility] CREATININE 0.62 0.50 - 1.04 mg/dL [facility] ORY SERVICES TOTAL BILI 0.6 0.1 - 1.1 mg/dL [facility] CALCIUM 9.9 8.6 - 10.6 mg/dL [facility] RY SERVICES T PROTEIN 8.0 6.3 - 8.2 g/dL [facility] ALBUMIN 4.4 3.5 - 5.0 g/dL [facility] ALK PHOS 97 34 - 122 U/L [facility] ALTv 10 5 - 35 U/L [facility] AST(SGOT) 22 13 - 40 U/L [facility] eGFR 100.3 mL/min/1.73m2 [facility] Calculation SERVICES (Non-) eGFR 121.6 mL/min/1.73m2 [facility] Calculation SERVICES () Specimen Blood Narrative Performed At Association of Glomerular Filtration Rate (GFR) and S taging of Kidney Disease* [facility] + + +------ [...] abnormalities in imaging tests). Performing Organization Address [facility] one Number [facility] CLIA: [id number], [address] [place] [address] [facility] * C-REACTIVE PROTEIN (08/19/2019 2:49 PM RN CASE MANA[facility]PICE) CRP 1.8 (H) <0.8 mg/dL [facility] Specimen Blood Performing Organization Address [facility] Ph one Number [facility] CLIA: [id number], [address] [place] [address] [facility] * VITAMIN D, 25-OH (07/31/2019 10:15 AM RN [facility] MANA[facility]) VIT D 25OH 18 (L) 25 - 80 ng/mL [facility] Specimen Blood Narrative Performed At Deficiency: <20 ng/mL [facility] Insufficiency: 20-24 ng/mL SERVICES Optimal: 25-80 ng/mL Performing Organization Address City/State[facility] Ph one Number [facility] CLIA: [id number], [address] [place] [address] [facility] * INTACT PTH CALCIUM GROUP (07/31/2019 10:15 AM RN CASE MANAGER [facility]OSPICE) CALCIUM 9.9 8.6 - 10.6 mg/dL [facility] RY SERVICES PTH-INTACT 62.3 12.0 - 88.0 pg/mL [facility] ORY SERVICES PTH-CA Comment: PTH IS Appropriate [facility] Interpretation for Calcium SERVICES Specimen Blood Performing Organization Address [facility] Ph one Number [facility] CLIA: [id number], [address] [place] [address] [facility] * VITAMIN B12, LEVEL (07/31/2019 10:15 AM RN CASE MANA[facility]PICE) VIT B12 345 240 - 930 pg/mL [facility] Y SERVICES Specimen Blood Narrative Performed At Biotin has been reported to cause a pos itive bias, interpret results relative to [facility] patient's use of biotin. SERVICES Performing Organization Address [facility] Ph one Number [facility] CLIA: [id number], [address] [place] [address] [facility] * MAGNESIUM (07/31/2019 10:15 AM RN CASE MANAGER HOSPICE) MAGNESIUM 2.1 1.7 - 2.4 mg/dL [facility] LABORATOR Y SERVICES-[facility] Specimen Blood Performing Organization Address City/State/Zipcode Ph one Number [facility] CLIA: [id number], [address] [place], [place] [address] SERVICES-[facility] * PHYSICIAN CERTIFICATION STATEMENT (07/29/2019 12:01 AM RN CASE MANA[facility]OSPICE) Specimen Performing Organization Address City/[facility] Ph one Number HIM * REFERRAL- REQUEST/RESPONSE (07/28/2019 12:01 AM RN CASE MANAGER [facility]OSPICE) Specimen Performing Organization Address City/State/Zipcode Ph one Number HIM from Last 3 Months Insurance Type Payer Benefit Subscriber ID Effective Phone Address Plan / Dates Group Medicare Adv HMO [facility] [id number] 2018- MANAGED MEDICARE HEALTHCARE Present DUAL COMPLETE HMO [facility] [id number] 2018- [address] [employer] H Present [address] [place] [address] Medicaid [place] MEDICAID xxxxxxxxx 2019-P [phone] [address] [place] [id number] [place] [address] amily (Home) [place] [address] [facility] 1965 [id number] [id number] Health (Home) [place] [address] Advance Directives Patient Sensory Scientist Explanation Type Date Recorded 0 Advance Directives 08/08/2013 8:00 AM and Living Will Power of Marketing Communications Manager 08/08/2013 8:00 AM
--- OUTSIDE RECORDS SUMMARY | 2019-12-13 15:37 | XMS REPORT | Clinical Summary ---
Author Author [facility] - Health Organization [facility] - Health Address Unknown Phone Unavailable Care Team Providers Care Professor Of Biochemistry Name Role Phone Ovidio Clarke MD PCP [...] Overview: Added automatically from request for marquez [employer] [id number] Cervical spondylosis with radiculopathy 01/01/2019 Overview: Added automatically from request for marquez [employer] [id number] Mixed hyperlipidemia 08/13/2018 Overview: LDL 140 07/17/2018 Left tennis elbow 06/17/2018 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 Overview: R Avulsion fracture of lateral epicondyle of humerus 0 11/14/2017 Painful patella, unspecified laterality 11/05/2017 S/P revision of total hip 09/18/2017 Colon cancer screening 05/24/2017 Overview: Added automatically from request for marquez [employer] [id number] Hematemesis with nausea 05/24/2017 Overview: Added automatically from request for marquez [employer] [id number] Nausea and vomiting, intractability of vomiting not s pecified, unspecified 05/24/2017 vomiting type Overview: Added automatically from request for [employer] [id number] ANJELICA (obstructive sleep apnea) 05/10/2017 Obesity (BMI 30-39.9) 05/01/2017 Microhematuria 02/14/2017 Complex tear of medial meniscus of right knee as curr ent injury, initial 01/18/2017 encounter Overview: Added automatically from request for jimmy solorio [id number] Elevated MCV 07/25/2016 Overview: 103.4 07/22/2016 Muscle [...] on chest xray at [facility] 05/22/2015 Hiatus hernia syndrome 04/09/2015 Overview: EGD [...] lower leg 11/25/2013 Overview: ICD10 Diagnosis Term Manager Paid Utility Knee crepitus 11/25/2013 Genu valgum, acquired 11/25/2013 Overview: ICD10 Diagnosis Term Manager Paid Utility Patellofemoral misalignment with pain 11/25/2013 Primary [...] 11/16/2010 Headache 04/08/2010 Overview: ICD10 Diagnosis Term Manager Paid Utility Nonerosive nonspecific gastritis 04/08/2010 Overview: EGD Dr. Lloyd Glossitis 02/23/2010 Tobacco use disorder 02/23/2010 Menorrhagia 05/19/2009 Vision blurred 05/19/2009 Acute upper respiratory infection 08/14/2008 Overview: ICD10 Diagnosis Term Manager Paid Utility Acute pharyngitis 08/14/2008 Screening for malignant neoplasm of cervix 9 Overview: ICD10 Diagnosis Term Manager Paid Utility Breast screening 07/16/2008 Overview: ICD10 Diagnosis Term Manager Paid Utility Urinary tract infection, site not specified 04/29/20 08 Backache 06/02/2007 Overview: Lower back pain ICD10 Diagnosis Term Manager Paid Utility Pain in joint 06/02/2007 Overview: ICD10 Diagnosis Term Manager Paid Utility Cervicalgia 06/02/2007 Myalgia and myositis 06/02/2007 Overview: Bilateral trapezius pain ICD10 Diagnosis Term Manager Paid Utility Absence of menstruation 04/25/2007 Anemia 03/25/2007 Overview: ICD10 Diagnosis Term Manager Paid Utility Helicobacter pylori infection 06/11/2006 Overview: ICD10 Diagnosis Term Manager Paid Utility Acute peptic ulcer 06/11/2006 Overview: ICD10 Diagnosis Term Manager Paid Utility Abdominal pain 04/25/2006 Overview: ICD10 Diagnosis Term Manager Paid Utility Ankylosing spondylitis 04/25/2006 Vaginitis and vulvovaginitis 04/25/2006 Overview: ICD10 Diagnosis Term Manager Paid Utility Other, mixed, or unspecified nondependent drug abuse, continuous 11/30/2005 Resolved Problems Problem Noted Date Resolved Date Arm laceration, right, subsequent encounter 04/13/2014 04/13/2014 Syncope and collapse 02/27/2007 06/28/2014 Bipolar I disorder, most recent episode (or current) unspec ified 01/03/2007 01/23/2018 Overview: Dr. 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 Conservator Phlebotomy Visit Omar Clay DO Ankylosing spondylitis of multiple sites in spine (Primary Dx); Mycobacterium avium infection; Therapeutic drug monitoring; Anterior uveitis; Schizoaffective disorder, bipolar type 08/19/2019 Office Visit Rheumatology Omra Clay, Orders (updated infusion order needed fo r Remicade) 08/14/2019 Telephone Rheumatology Ovidio Clarke Jr., MD Refill Request 08/13/2019 Refill Family Medicine Omar Clay, Refill Request 08/12/2019 Refill Rheumatology JayGiuliano Bentley FNP [facility] Postmenopausal bone loss 07/31/2019 Furnishings Conservator Phlebotomy Visit Giuliano Gardner FNP Carpal tunnel syndrome on right (Primary Dx); Postmenopausal bone loss; Ankylosing spondylitis of multiple sites in spine 07/31/2019 Office Visit Orthopedic Surgery Sebastian Doe MD Cervical spondylosis with radiculopathy (Primary Dx); Ankylosing spondylitis, unspecified site of spine; Carpal tunnel syndrome of right wrist; Chronic pain syndrome 07/29/2019 Office Visit Pain Medicine Doctor Unassigned, Keo 07/28/2019 Orders Only from Last 3 Months [...] of Treatment Care Team Description Date Type Doctor Of Naprapathic MedicineSebastian Doe MD [id number] [place] [address] [phone] 10/28/2019 Telemedicine Pain Medicine Visit Omar Clay, DO [address] [place] [address] [phone] Jennifer Oreilly Adult Infusion Nurse 10/30/2019 Nurse Visit Infusion Therapy Omar Clay, DO [address] [place] [address] [phone] 11/18/2019 Telemedicine [place] [address] [place] [address] 11/28/2019 Telemedicine Family [place] [address] [place] [phone] 01/16/2020 Appointment Radiology JayRadhaBonychris Giuliano, VICE CHAIRMAN [address] [place] [address] [phone] 01/16/2020 Appointment Radiology Health Maintenance Due Date [...] Donal Uhr Bipolar BIPOLAR Right: Hip Donal 38w88ny #[id number] - S0 head Implanted: Qty: 1 on 09/18/2017 by Sebastian Bunn MD at [facility] 07/07/2021 1023-12 / [id number] / [id number] Cancellous Cubes, Community Tissue BONE Right: Hip [facility] Services Freeze Dried 30 Cc Tissue #1023-12 - [id number] Services Implanted: Qty: 1 on 09/18/2017 by Sebastian Bunn MD at [facility] 03/08/2018 2018-40 / [id number] / [id number] Dbm Putty Maxxeus 10cc Cts #2018-40 BONE Right: Hip [facility] - [id number] Tissue Implanted: Qty: 1 on 09/18/2017 by Services Sebastian Bunn MD at [facility] 04/07/2022 1365-28-720 / 0 / [id number] Delta Ceramic Femoral Head 28mm +5 Head Right: Hip Depuy 06/21 Taper Depuy Ref#[id number] Synthes Implanted: Qty: 1 on 09/18/2017 by Sebastian Bunn MD at [facility] 03/29/2022 [id number] / 0 / [id number] Insert, Donal Trident 0deg 44mm Liner Right: Hip Nikolski #[id number] Implanted: Qty: 1 on 09/18/2017 by Sebastian Bunn MD at [facility] 04/24/2022 5260-5-050 / 0 / [id number] Screw Osteolock [address] SCREW Right: Hip Nikolski Cancellous 50mm Donal Ref#[id number] Implanted: Qty: 2 on 09/18/2017 by Sebastian Bunn MD at [facility] 06/01/2022 5260-5-020 / 0 / [id number] Screw Ostelock 3.[address] SCREW Right: Hip Donal Cancellous 20mm Nikolski Ref#[id number] Implanted: Qty: 1 on 09/18/2017 by Sebastian Bunn MD at [facility] 06/01/2022 5260-5-016 / 0 / [id number] Screw Osteolock 3.[address] SCREW Right: Hip Donal Cancellous 18mm Nikolski Ref#[id number] Implanted: Qty: 1 on 09/18/2017 by Sebastian Bunn MD at [facility] 01/02/2022 [id number] / 0 / [id number] Shell, Donal Tritanium Revision Shell Right: Hip Nikolski Acetabular #[id number] - S0 Implanted: Qty: 1 on 09/18/2017 by Sebastian Bunn MD at [facility] Procedures Comments Procedure Name Priority Date/Time Associated Diag nosis FLEXIBLE SCOPE ENT Routine 08/28/2019 Adenoid hyp ertrophy CBC WITH DIFFERENTIAL Routine 08/19/2019 Ankylosi ng spondylitis of 2:54 PM WELFARE PROJECT MANAGER multiple sites in spine QUANTIFERON-TB ASSAY Routine 08/19/2019 Ankylosin g spondylitis of 2:54 PM WELFARE PROJECT MANAGER multiple sites in spine COMP. METABOLIC PANEL Routine 08/19/2019 Ankylosi ng spondylitis of (66743) 2:54 PM WELFARE PROJECT MANAGER multiple sites in s pine SEDIMENTATION RATE Routine 08/19/2019 Ankylosing spondylitis of 2:54 PM WELFARE PROJECT MANAGER multiple sites in spine CBC WITH DIFFERENTIAL Routine 08/19/2019 Ankylosi ng spondylitis of 2:54 PM WELFARE PROJECT MANAGER multiple sites in spine C-REACTIVE PROTEIN Routine 08/19/2019 Ankylosing spondylitis of 2:49 PM WELFARE PROJECT MANAGER multiple sites in spine MAGNESIUM Routine 07/31/2019 Postmenopausal bone loss 10:15 AM WELFARE PROJECT MANAGER VITAMIN B12, LEVEL Routine 07/31/2019 Postmenopau marjorie bone loss 10:15 AM WELFARE PROJECT MANAGER INTACT PTH CALCIUM GROUP Routine 07/31/2019 Postm enopausal bone loss 10:15 AM WELFARE PROJECT MANAGER VITAMIN D, 25-OH Routine 07/31/2019 Postmenopausa l bone loss 10:15 AM WELFARE PROJECT MANAGER PHYSICIAN CERTIFICATION Routine 07/29/2019 STATEMENT 12:01 AM WELFARE PROJECT MANAGER REFERRAL- Routine 07/28/2019 REQUEST/RESPONSE 12:01 AM WELFARE PROJECT MANAGER from Last 3 Months Results * FLEXIBLE SCOPE ENT (08/28/2019) Specimen Narrative Performed At Please see endoscopic findings from clinic note from 08/28/2019. [facility] Performing Organization Address City/State/Zipcode Ph one Number [facility] * CBC WITH DIFFERENTIAL (08/19/2019 2:54 PM WELFARE PROJECT MANAGER) WBC 6.41 4.30 - 11.10 [facility] [...] MONO x10^3 0.53 0.33 - 0.92 10*3/uL [facility] EOS x10^3 0.16 0.03 - 0.39 10*3/uL [facility] BASO x10^3 <0.03 0.01 - 0.07 10*3/uL [facility] SERVICES Specimen Blood Performing Organization Address City/State/Zipcode Ph one Number [facility] CLIA: [id number], [address] [place] [address] [facility] * QUANTIFERON-TB ASSAY (08/19/2019 2:54 PM WELFARE PROJECT MANAGER) Nil 0.018 IU/mL [facility] TB1 minus Nil 0.004 IU/mL [facility] TB2 minus Nil 0.005 IU/mL [facility] SERVICES Mitogen minus >10.000 IU/mL [facility] Nil SERVICES QFT Gold Plus Negative Negative [facility] Result SERVICES Specimen Blood - VENOUS Narrative Performed At Test results are calculated in accordan ce with an FDA-approved algorithm run on [facility] QuantiFERON(R) software. SERVICES The QuantiFERON(R) TB [...] results. For further information, refer to http: //www.cdc.gov/mmwr/pdf/rr/je8100.pdf |Nil | TB1 minus | TB2 minus [...] | | + *Indeterminate Performing Organization Address City/[facility] Ph one Number [facility] CLIA: [id number], [address] [place] [address] [facility] * SEDIMENTATION RATE (08/19/2019 2:54 PM WELFARE PROJECT MANAGER) ESR 41 (H) 0 - 20 mm/HR [facility] SERVICES Specimen Blood Performing Organization Address City/[facility] Ph one Number [facility] CLIA: [id number], [address] [place] [address] [facility] * COMP. METABOLIC PANEL (48645) (08/19/2019 2:54 PM WELFARE PROJECT MANAGER) NA 138 135 - 145 mmol/L [facility]OR[facility] RY SERVICES K 4.3 3.5 - 5.0 mmol/L [facility] CL 100 98 - 108 mmol/L [facility]OR[facility] Y SERVICES CO2 TOTAL 28 23 - 31 mmol/L [facility] SERVICES AGAP 10 2 - 16 [facility] BUN 12 7 - 23 mg/dL [facility] GLUCOSE 97 70 - 110 mg/dL [facility] CREATININE 0.62 0.50 - 1.04 mg/dL [facility] LABORAT ORY SERVICES TOTAL BILI 0.6 0.1 - 1.1 mg/dL [facility] CALCIUM 9.9 8.6 - 10.6 mg/dL [facility] RY SERVICES T PROTEIN 8.0 6.3 - 8.2 g/dL [facility] SERVICES ALBUMIN 4.4 3.5 - 5.0 g/dL [facility] ALK PHOS 97 34 - 122 U/L [facility] ALTv 10 5 - 35 U/L [facility] AST(SGOT) 22 13 - 40 U/L [facility] eGFR 100.3 mL/min/1.73m2 [facility] Calculation SERVICES (Non-) eGFR 121.6 mL/min/1.73m2 [facility] Calculation SERVICES () Specimen Blood Narrative Performed At Association of Glomerular Filtration Rate (GFR) and S taging of Kidney Disease* [facility] + + +------ + SERVICES | [...] abnormalities in imaging tests). Performing Organization Address [facility] one Number [facility] CLIA: [id number], [address] [place] [address] [facility] * C-REACTIVE PROTEIN (08/19/2019 2:49 PM WELFARE PROJECT MANAGER) CRP 1.8 (H) <0.8 mg/dL [facility] SERVICES Specimen Blood Performing Organization Address [facility] Ph one Number [facility] CLIA: [id number], [address] [place] [address] [facility] * VITAMIN D, 25-OH (07/31/2019 10:15 AM WELFARE PROJECT MANAGER) VIT D 25OH 18 (L) 25 - 80 ng/mL [facility] SERVICES Specimen Blood Narrative Performed At Deficiency: <20 ng/mL [facility] Insufficiency: 20-24 ng/mL SERVICES Optimal: 25-80 ng/mL Performing Organization Address City/State/[facility] Ph one Number [facility] CLIA: [id number], [address] [place] [address] [facility] * INTACT PTH CALCIUM GROUP (07/31/2019 10:15 AM WELFARE PROJECT MANAGER) CALCIUM 9.9 8.6 - 10.6 mg/dL [facility] RY SERVICES PTH-INTACT 62.3 12.0 - 88.0 pg/mL [facility]AT ORY SERVICES PTH-CA Comment: PTH IS Appropriate [facility] Interpretation for Calcium SERVICES Specimen Blood Performing Organization Address [facility] Ph one Number [facility] CLIA: [id number], [address] [place] [address] [facility] * VITAMIN B12, LEVEL (07/31/2019 10:15 AM WELFARE PROJECT MANAGER) VIT B12 345 240 - 930 pg/mL [facility] LABOR[facility] Y SERVICES Specimen Blood Narrative Performed At Biotin has been reported to cause a pos itive bias, interpret results relative to [facility] patient's use of biotin. SERVICES Performing Organization Address [facility] Ph one Number [facility] CLIA: [id number], [address] [place] [address] [facility] * MAGNESIUM (07/31/2019 10:15 AM WELFARE PROJECT MANAGER) MAGNESIUM 2.1 1.7 - 2.4 mg/dL [facility] LABORATOR Y SERVICES-[facility] Specimen Blood Performing Organization Address City/State/Zipcode Ph one Number [facility] CLIA: [id number], [address] [place], [place] [address] SERVICES-[facility] * PHYSICIAN CERTIFICATION STATEMENT (07/29/2019 12:01 AM WELFARE PROJECT MANAGER) Specimen Performing Organization Address City/[facility] Ph one Number HIM * REFERRAL- REQUEST/RESPONSE (07/28/2019 12:01 AM WELFARE PROJECT MANAGER) Specimen Performing Organization Address City/State/Zipcode Ph one Number HIM from Last 3 Months Insurance Type Payer Benefit Subscriber ID Effective Phone Address Plan / Dates Group Medicare Adv HMO [facility] [id number] 2018- MANAGED MEDICARE HEALTHCARE Present DUAL COMPLETE HMO [facility] [id number] 2018- [address] [employer] H Present [address] [place] [address] Medicaid [place] MEDICAID xxxxxxxxx 2019-P [phone] [address] [place] [id number] [place] [address] amily (Home) [place] [address] [facility] Self 1965 [address] [address] Health (Home) [place] [address] 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
--- OUTSIDE RECORDS SUMMARY | 2019-12-13 15:37 | XMS REPORT | Clinical Summary ---
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 Overview: R Avulsion fracture of lateral epicondyle of humerus 0 11/14/2017 Painful patella, unspecified laterality 11/05/2017 S/P revision of total hip 09/18/2017 Colon cancer screening 05/24/2017 Overview: Added automatically from request for [employer] [id number] Hematemesis with nausea 05/24/2017 Overview: Added automatically from request for [employer]quez [employer] [id number] Nausea and vomiting, intractability of vomiting not s pecified, unspecified 05/24/2017 vomiting type Overview: Added automatically from request for [place] [id number] ANJELICA (obstructive sleep apnea) 05/10/2017 Obesity (BMI 30-39.9) 05/01/2017 Microhematuria 02/14/2017 Complex tear of medial meniscus of right knee as curr ent injury, initial 01/18/2017 encounter Overview: Added automatically from request for jimmy solorio [id number] Elevated MCV 07/25/2016 Overview: 103.4 07/22/2016 Muscle [...] lower leg 11/25/2013 Overview: ICD10 Diagnosis Term Metal Burrer Utility Knee crepitus 11/25/2013 Genu valgum, acquired 11/25/2013 Overview: ICD10 Diagnosis Term Metal Burrer Utility Patellofemoral misalignment with pain 11/25/2013 Primary [...] 11/16/2010 Headache 04/08/2010 Overview: ICD10 Diagnosis Term Metal Burrer Utility Nonerosive nonspecific gastritis 04/08/2010 Overview: EGD Dr. Lloyd Glossitis 02/23/2010 Tobacco use disorder 02/23/2010 Menorrhagia 05/19/2009 Vision blurred 05/19/2009 Acute upper respiratory infection 08/14/2008 Overview: ICD10 Diagnosis Term Metal Burrer Utility Acute pharyngitis 08/14/2008 Screening for malignant neoplasm of cervix 9 Overview: ICD10 Diagnosis Term Metal Burrer Utility Breast screening 07/16/2008 Overview: ICD10 Diagnosis Term Metal Burrer Utility Urinary tract infection, site not specified 04/29/20 08 Backache 06/02/2007 Overview: Lower back pain ICD10 Diagnosis Term Metal Burrer Utility Pain in joint 06/02/2007 Overview: ICD10 Diagnosis Term Metal Burrer Utility Cervicalgia 06/02/2007 Myalgia and myositis 06/02/2007 Overview: Bilateral trapezius pain ICD10 Diagnosis Term Metal Burrer Utility Absence of menstruation 04/25/2007 Anemia 03/25/2007 Overview: ICD10 Diagnosis Term Metal Burrer Utility Helicobacter pylori infection 06/11/2006 Overview: ICD10 Diagnosis Term Metal Burrer Utility Acute peptic ulcer 06/11/2006 Overview: ICD10 Diagnosis Term Metal Burrer Utility Abdominal pain 04/25/2006 Overview: ICD10 Diagnosis Term Metal Burrer Utility Ankylosing spondylitis 04/25/2006 Vaginitis and vulvovaginitis 04/25/2006 Overview: ICD10 Diagnosis Term Metal Burrer Utility Other, mixed, or unspecified nondependent drug abuse, continuous 11/30/2005 Resolved Problems Problem Noted Date Resolved Date Arm laceration, right, subsequent encounter 04/13/2014 04/13/2014 Syncope and collapse 02/27/2007 06/28/2014 Bipolar I disorder, most recent episode (or current) unspec ified 01/03/2007 01/23/2018 Overview: Dr. 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 11/30/2005 02/11/2018 Overview: ICD10 Diagnosis Term Metal Burrer Utility Encounters Care Team Description Date Type [...] spondylitis of multiple sites in spine 08/19/2019 Orchestra Teacher Phlebotomy Visit Omar Clay DO Ankylosing spondylitis [...] Bentley FNP Vls-Lab Postmenopausal bone loss 07/31/2019 Orchestra Teacher Phlebotomy Visit Giuliano Gardner FNP Carpal tunnel syndrome on right (Primary Dx); Postmenopausal bone loss; Ankylosing spondylitis of multiple sites in spine 07/31/2019 Office Visit Orthopedic Surgery Sebastian Doe MD Cervical spondylosis with radiculopathy (Primary Dx); Ankylosing spondylitis, unspecified site of spine; Carpal tunnel syndrome of right wrist; Chronic pain syndrome 07/29/2019 Office Visit Pain Medicine Doctor Unassigned, [place] 07/28/2019 Orders Only from Last 3 Months [...] of Treatment Care Team Description Date Type Cushion SewerSebastian Doe MD [id number] [place] [address] [phone] 10/28/2019 Telemedicine Pain Medicine Visit Omar Clay, DO [address] [place] [address] [phone] Jennifer Oreilly Adult Infusion Nurse 10/30/2019 Nurse Visit Infusion Therapy Omar Clay, DO [address] [place] [address] [phone] 11/18/2019 Telemedicine [place] [address] [place] [address] 11/28/2019 Telemedicine Family [place] [address] [place] [phone] 01/16/2020 Appointment Radiology JayRadhaBonychris Giuliano, TON CONTAINER FILLER [address] [place] [address] [phone] 01/16/2020 Appointment Radiology Health Maintenance Due Date [...] Donal Uhr Bipolar BIPOLAR Right: Hip Donal [id number] #Uh1-44-28 - S0 head Implanted: Qty: 1 on 09/18/2017 by Sebastian Bunn MD at [facility] 07/07/2021 1023-12 / [id number] / [id number] Cancellous Cubes, Community Tissue BONE Right: Hip [facility] Services Freeze Dried 30 Cc Tissue #1023-12 - [id number] Services Implanted: Qty: 1 on 09/18/2017 by Sebastian Bunn MD at [facility] 03/08/2018 2018-40 / [id number] / [id number] Dbm Putty Maxxeus 10cc Cts #2018-40 BONE Right: Hip [facility] - [id number] Tissue Implanted: Qty: 1 on 09/18/2017 by Services Sebastian Bunn MD at [facility] 04/07/2022 1365-28-720 / 0 / [id number] Delta Ceramic Femoral Head 28mm +5 Head Right: Hip Depuy 06/21 Taper Depuy Ref#[id number] Synthes Implanted: Qty: 1 on 09/18/2017 by Sebastian Bunn MD at [facility] 03/29/2022 623-00-44F / 0 / [id number] Insert, Donal Trident 0deg 44mm Liner Right: Hip [place] #[id number] Implanted: Qty: 1 on 09/18/2017 by Sebastian Bunn MD at [facility] 04/24/2022 5260-5-050 / 0 / [id number] Screw Osteolock 3.[address] SCREW Right: Hip [place] Cancellous 50mm Donal Ref#[id number] Implanted: Qty: 2 on 09/18/2017 by Sebastian Bunn MD at [facility] 06/01/2022 5260-5-020 / 0 / [id number] Screw Ostelock 3.[address] SCREW Right: Hip Donal Cancellous 20mm [place] Ref#[id number] Implanted: Qty: 1 on 09/18/2017 by Sebastian Bunn MD at [facility] 06/01/2022 5260-5-016 / 0 / [id number] Screw Osteolock 3.[address] SCREW Right: Hip Donal Cancellous 18mm [place] Ref#[id number] Implanted: Qty: 1 on 09/18/2017 by Sebastian Bunn MD at [facility] 01/02/2022 509-02-60F / 0 / [id number] Shell, Donal Tritanium Revision Shell Right: Hip [place] Acetabular #[id number] - S0 Implanted: Qty: 1 on 09/18/2017 by Sebastian Bunn MD at [facility] Procedures Comments Procedure Name Priority Date/Time Associated Diag nosis FLEXIBLE SCOPE ENT Routine 08/28/2019 Adenoid hyp ertrophy CBC WITH DIFFERENTIAL Routine 08/19/2019 Ankylosi ng spondylitis of 2:54 PM BENCH WORKER multiple sites in spine QUANTIFERON-TB ASSAY Routine 08/19/2019 Ankylosin g spondylitis of 2:54 PM BENCH WORKER multiple sites in spine COMP. METABOLIC PANEL Routine 08/19/2019 Ankylosi ng spondylitis of (30798) 2:54 PM BENCH WORKER multiple sites in s pine SEDIMENTATION RATE Routine 08/19/2019 Ankylosing spondylitis of 2:54 PM BENCH WORKER multiple sites in spine CBC WITH DIFFERENTIAL Routine 08/19/2019 Ankylosi ng spondylitis of 2:54 PM BENCH WORKER multiple sites in spine C-REACTIVE PROTEIN Routine 08/19/2019 Ankylosing spondylitis of 2:49 PM BENCH WORKER multiple sites in spine MAGNESIUM Routine 07/31/2019 Postmenopausal bone loss 10:15 AM BENCH WORKER VITAMIN B12, LEVEL Routine 07/31/2019 Postmenopau marjorie bone loss 10:15 AM BENCH WORKER INTACT PTH CALCIUM GROUP Routine 07/31/2019 Postm enopausal bone loss 10:15 AM BENCH WORKER VITAMIN D, 25-OH Routine 07/31/2019 Postmenopausa l bone loss 10:15 AM BENCH WORKER PHYSICIAN CERTIFICATION Routine 07/29/2019 STATEMENT 12:01 AM BENCH WORKER REFERRAL- Routine 07/28/2019 REQUEST/RESPONSE 12:01 AM BENCH WORKER from Last 3 Months Results * FLEXIBLE SCOPE ENT (08/28/2019) Specimen Narrative Performed At Please see endoscopic findings from clinic note from 08/28/2019. [facility] Performing Organization Address City/State/Zipcode Ph one Number [facility] * CBC WITH DIFFERENTIAL (08/19/2019 2:54 PM BENCH WORKER) WBC 6.41 4.30 - 11.10 [facility] [...] MONO x10^3 0.53 0.33 - 0.92 10*3/uL [facility] EOS x10^3 0.16 0.03 - 0.39 10*3/uL [facility] BASO x10^3 <0.03 0.01 - 0.07 10*3/uL [facility] Specimen Blood Performing Organization Address City/State/Zipcode Ph one Number [facility] CLIA: [id number], [address] [place] [address] [facility] * QUANTIFERON-TB ASSAY (08/19/2019 2:54 PM BENCH WORKER) Nil 0.018 IU/mL [facility] TB1 minus Nil 0.004 IU/mL [facility] TB2 minus Nil 0.005 IU/mL [facility] Mitogen minus >10.000 IU/mL [facility] Nil SERVICES QFT Gold Plus Negative Negative [facility] Result SERVICES Specimen Blood - VENOUS Narrative Performed At Test results are calculated in accordan ce with an FDA-approved algorithm run on [facility] QuantiFERON(R) software. SERVICES The QuantiFERON(R) [...] results. For further information, refer to http: //www.cdc.gov/mmwr/pdf/rr/ei0384.pdf |Nil | TB1 minus | TB2 minus [...] | | + *Indeterminate Performing Organization Address City/[facility] Ph one Number [facility] CLIA: [id number], [address] [place] [address] [facility] * SEDIMENTATION RATE (08/19/2019 2:54 PM BENCH WORKER) ESR 41 (H) 0 - 20 mm/HR [facility] Specimen Blood Performing Organization Address City/[facility] Ph one Number [facility] CLIA: [id number], [address] [place] [address] [facility] * COMP. METABOLIC PANEL (75195) (08/19/2019 2:54 PM BENCH WORKER) NA 138 135 - 145 mmol/L [facility] RY SERVICES K 4.3 3.5 - 5.0 mmol/L [facility] RY SERVICES CL 100 98 - 108 mmol/L [facility] Y SERVICES CO2 TOTAL 28 23 - 31 mmol/L [facility] AGAP 10 2 - 16 [facility] BUN 12 7 - 23 mg/dL [facility] GLUCOSE 97 70 - 110 mg/dL [facility] CREATININE 0.62 0.50 - 1.04 mg/dL [facility] ORY SERVICES TOTAL BILI 0.6 0.1 - 1.1 mg/dL [facility] CALCIUM 9.9 8.6 - 10.6 mg/dL [facility] RY SERVICES T PROTEIN 8.0 6.3 - 8.2 g/dL [facility] ALBUMIN 4.4 3.5 - 5.0 g/dL [facility] ALK PHOS 97 34 - 122 U/L [facility] ALTv 10 5 - 35 U/L [facility] AST(SGOT) 22 13 - 40 U/L [facility] eGFR 100.3 mL/min/1.73m2 [facility] Calculation SERVICES (Non-) eGFR 121.6 mL/min/1.73m2 [facility] Calculation SERVICES () Specimen Blood Narrative Performed At Association of Glomerular Filtration Rate (GFR) and S taging of Kidney Disease* [facility] + + +------ + SERVICES [...] abnormalities in imaging tests). Performing Organization Address [facility] one Number [facility] CLIA: [id number], [address] [place] [address] [facility] * C-REACTIVE PROTEIN (08/19/2019 2:49 PM BENCH WORKER) CRP 1.8 (H) <0.8 mg/dL [facility] SERVICES Specimen Blood Performing Organization Address [facility] Ph one Number [facility] CLIA: [id number], [address] [place] [address] [facility] * VITAMIN D, 25-OH (07/31/2019 10:15 AM BENCH WORKER) VIT D 25OH 18 (L) 25 - 80 ng/mL [facility] Specimen Blood Narrative Performed At Deficiency: <20 ng/mL [facility] Insufficiency: 20-24 ng/mL SERVICES Optimal: 25-80 ng/mL Performing Organization Address City/State/[facility] Ph one Number [facility] CLIA: [id number], [address] [place] [address] [facility] * INTACT PTH CALCIUM GROUP (07/31/2019 10:15 AM BENCH WORKER) CALCIUM 9.9 8.6 - 10.6 mg/dL [facility] RY SERVICES PTH-INTACT 62.3 12.0 - 88.0 pg/mL [facility] ORY SERVICES PTH-CA Comment: PTH IS Appropriate [facility] Interpretation for Calcium SERVICES Specimen Blood Performing Organization Address [facility] Ph one Number [facility] CLIA: [id number], [address] [place] [address] [facility] * VITAMIN B12, LEVEL (07/31/2019 10:15 AM BENCH WORKER) VIT B12 345 240 - 930 pg/mL [facility] SERVICES Specimen Blood Narrative Performed At Biotin has been reported to cause a pos itive bias, interpret results relative to [facility] patient's use of biotin. SERVICES Performing Organization Address [facility] Ph one Number [facility] CLIA: [id number], [address] [place] [address] [facility] * MAGNESIUM (07/31/2019 10:15 AM BENCH WORKER) MAGNESIUM 2.1 1.7 - 2.4 mg/dL [facility] Y SERVICES-[facility] Specimen Blood Performing Organization Address City/State/Zipcode Ph one Number [facility] CLIA: [id number], [address] [place], [place] [address] SERVICES-[facility] * PHYSICIAN CERTIFICATION STATEMENT (07/29/2019 12:01 AM BENCH WORKER) Specimen Performing Organization Address City/[facility]/[place] Ph one Number HIM * REFERRAL- REQUEST/RESPONSE (07/28/2019 12:01 AM BENCH WORKER) Specimen Performing Organization Address City/State/Zipcode Ph one Number HIM from Last 3 Months Insurance Type Payer Benefit Subscriber ID Effective Phone Address Plan / Dates Group Medicare Adv HMO [facility] [id number] 2018- MANAGED MEDICARE HEALTHCARE Present DUAL COMPLETE HMO [facility] [id number] 2018- P [address] BOX SOLUTIONS H Present [address] [place] [address] Medicaid [place] MEDICAID xxxxxxxxx 2019-P [phone] [address] [place] resent [id number] [place] [address] amily (Home) [place] [address] [facility] 1965 [address] [address] Health (Home) [place] [address] Advance Directives 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
--- OUTSIDE RECORDS SUMMARY | 2019-12-13 15:37 | XMS REPORT | Summary of Care ---
Author Author [facility] - Health Organization [facility] - Health Address Unknown Phone Unavailable Care Team Providers Care Wire Steward Name Role Phone Ovidio Clarke MD PCP Encounter Details Care Team Description Date Type Department Doctor Unassigned, [place] [address] [place] [address] 10/29/2019 Orders Only [facility] [address] [place] [address] Allergies Comments Active Allergy Reactions Severity Noted [...] Added automatically from request for jimmy solorio [id number] Cervical spondylosis with radiculopathy 01/01/2019 Overview: Added automatically from request for jimmy solorio [id number] Mixed hyperlipidemia 08/13/2018 Overview: LDL 140 07/17/2018 Left tennis elbow 06/17/2018 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 Overview: R Avulsion fracture of lateral epicondyle of humerus 0 11/14/2017 Painful patella, unspecified laterality 11/05/2017 S/P revision of total hip 09/18/2017 Colon cancer screening 05/24/2017 Overview: Added automatically from request for jimmy solorio [id number] Hematemesis with nausea 05/24/2017 Overview: Added automatically from request for jimmy solorio [id number] Nausea and vomiting, intractability of vomiting not s pecified, unspecified 05/24/2017 vomiting type Overview: Added automatically from request for jimmy solorio [id number] ANJELICA (obstructive sleep apnea) 05/10/2017 Obesity (BMI 30-39.9) 05/01/2017 Microhematuria 02/14/2017 Complex tear of medial meniscus of right knee as curr ent injury, initial 01/18/2017 encounter Overview: Added automatically from request for jimmy solorio [id number] Elevated MCV 07/25/2016 Overview: 103.4 07/22/2016 Muscle [...] lobe nodular opacitiy on chest xray at [facility] 05/22/2015 Hiatus hernia syndrome 04/09/2015 Overview: [...] lower leg 11/25/2013 Overview: ICD10 Diagnosis Term Provider Relations Representative Utility Knee crepitus 11/25/2013 Genu valgum, acquired 11/25/2013 Overview: ICD10 Diagnosis Term Provider Relations Representative Utility Patellofemoral misalignment with pain 11/25/2013 [...] 11/16/2010 Headache 04/08/2010 Overview: ICD10 Diagnosis Term Provider Relations Representative Utility Nonerosive nonspecific gastritis 04/08/2010 Overview: EGD Dr. Lloyd Glossitis 02/23/2010 Tobacco use disorder 02/23/2010 Menorrhagia 05/19/2009 Vision blurred 05/19/2009 Acute upper respiratory infection 08/14/2008 Overview: ICD10 Diagnosis Term Provider Relations Representative Utility Acute pharyngitis 08/14/2008 Screening for malignant neoplasm of cervix 9 Overview: ICD10 Diagnosis Term Provider Relations Representative Utility Breast screening 07/16/2008 Overview: ICD10 Diagnosis Term Provider Relations Representative Utility Urinary tract infection, site not specified 04/29/20 08 Backache 06/02/2007 Overview: Lower back pain ICD10 Diagnosis Term Provider Relations Representative Utility Pain in joint 06/02/2007 Overview: ICD10 Diagnosis Term Provider Relations Representative Utility Cervicalgia 06/02/2007 Myalgia and myositis 06/02/2007 Overview: Bilateral trapezius pain ICD10 Diagnosis Term Provider Relations Representative Utility Absence of menstruation 04/25/2007 Anemia 03/25/2007 Overview: ICD10 Diagnosis Term Provider Relations Representative Utility Helicobacter pylori infection 06/11/2006 Overview: ICD10 Diagnosis Term Provider Relations Representative Utility Acute peptic ulcer 06/11/2006 Overview: ICD10 Diagnosis Term Provider Relations Representative Utility Abdominal pain 04/25/2006 Overview: ICD10 Diagnosis Term Provider Relations Representative Utility Ankylosing spondylitis 04/25/2006 Vaginitis and vulvovaginitis 04/25/2006 Overview: ICD10 Diagnosis Term Provider Relations Representative Utility Other, mixed, or unspecified nondependent [...] eatures 11/30/2005 02/11/2018 Overview: ICD10 Diagnosis Term Provider Relations Representative Utility documented as of this encounter [...] Description Date Type Specialty Omar Clay, DO [address] [place] [address] [phone] 2, Jennifer Adult Infusion Nurse 10/30/2019 Nurse Visit Infusion Therapy Omar Clay, DO [address] [place] [address] [phone] 11/18/2019 Telemedicine [place] [address] [place] [address] 11/28/2019 Telemedicine Family [place] [address] [place] [address] 01/16/2020 Appointment Radiology Giuliano Gardner, NUTRITION FACULTY MEMBER [address] [place], [place] [address] 01/16/2020 Appointment Radiology Health Maintenance Due Date [...] Head, Donal Uhr Bipolar BIPOLAR Right: Hip Burton 91i28gm #Uh1-44-28 - S0 head Implanted: Qty: 1 on 09/18/2017 by Sebastian Bunn MD at [facility] 07/07/2021 1023-12 / [id number] / [id number] Cancellous Cubes, Community Tissue BONE Right: Hip [facility] Services Freeze Dried 30 Cc Tissue #1023-12 - [id number] Services Implanted: Qty: 1 on 09/18/2017 by Sebastian Bunn MD at [facility] 03/08/2018 2018-40 / [id number] / [id number] Dbm Putty Maxxeus 10cc Cts #2018-40 BONE Right: Hip [facility] - [id number] Tissue Implanted: Qty: 1 on 09/18/2017 by Services Sebastian Bunn MD at [facility] 04/07/2022 1365-28-720 / 0 / [id number] Delta Ceramic Femoral Head 28mm +5 Head Right: Hip Depuy /14 Taper Depuy Ref#[id number] Synthes Implanted: Qty: 1 on 09/18/2017 by Sebastian Bunn MD at [facility] 03/29/2022 623-00-44F / 0 / [id number] Insert, Burton Trident 0deg 44mm Liner Right: Hip [place] #623-00-44f Implanted: Qty: 1 on 09/18/2017 by Sebastian Bunn MD at [facility] 04/24/2022 5260-5-050 / 0 / [id number] Screw Osteolock 3.[address] SCREW Right: Hip Burton Cancellous 50mm Donal Ref#[id number] Implanted: Qty: 2 on 09/18/2017 by Sebastian Bunn MD at [facility] 06/01/2022 5260-5-020 / 0 / [id number] Screw Ostelock 3.[address] SCREW Right: Hip Donal Cancellous 20mm Donal Ref#5260-5-020 Implanted: Qty: 1 on 09/18/2017 by Sebastian Bunn MD at [facility] 06/01/2022 5260-5-016 / 0 / [id number] Screw Osteolock 3.[address] SCREW Right: Hip Burton Cancellous 18mm Donal Ref#[id number] Implanted: Qty: 1 on 09/18/2017 by Sebastian Bunn MD at [facility] 01/02/2022 509-02-60F / 0 / [id number] Shell, Donal Tritanium Revision Shell Right: Hip Donal Acetabular #509-02-60f - S0 Implanted: Qty: 1 on 09/18/2017 by Sebastian Bunn MD at [facility] documented as of this encounter Procedures Comments Procedure Name Priority Date/Time Associated Diag nosis EXTERNAL PROVIDER RECORDS Routine 10/29/2019 12:01 AM CDT documented in this encounter Results Not on filedocumented in this encounter Insurance Type Payer Benefit Subscriber ID Effective Phone Address Plan / Dates Group Medicare Adv O [facility] [id number] 2018- MANAGED MEDICARE HEALTHCARE Present DUAL COMPLETE HMO [facility] [id number] 2018- [address] BOX SOLUTIONS H Present [address] [place] [address] Medicaid [place] MED[place] xxxxxxxxx 2019-P [phone] [address] [place] [facility] [id number] [place] [address] documented as of this encounter Advance Directives 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
--- OUTSIDE RECORDS SUMMARY | 2019-12-13 15:38 | XMS REPORT | Summary of Care ---
Author Author [facility] - Health Organization [facility] - Health Address Unknown Phone Unavailable Care Team Providers Care Binder Lockstitch Name Role Phone Ovidio Clarke MD PCP Reason for Referral * (Routine) Referred By Contact Referred To Contact Status Reason Specialty Diagnoses / Procedures Omar Clay, DO [address] [place] [phone] New Request Dermatology Diagnoses Folliculitis P rocedures CONSULT DERMATOLOGY * Radiology Services (Routine) Referred By Contact Referred To Contact Status Reason Specialty Diagnoses / Procedures Omar Clay, DO [address] [place] [address] [phone] New Request Diagnostic Diagnoses Radiology Ankylosing spondylitis of multiple sites in spine P rocedures XR HAND 3+ VW BILATERAL * (Routine) Referred By Contact Referred To Contact Status Reason Specialty Diagnoses / Procedures Omar Clay, DO [address] [place] [phone] Emg/Ncv Procedures-Jsa 8.144 Ovidio Karimi [address] [address] New Request Electroneurodiag Diagnoses nostic Ankylosing spondylitis of multiple sites in spine P rocedures EMGNCV Reason for Visit * Reason Comments Follow-up Ankylosing spindylitis of m ultiple sites in spine Encounter Details Care Team Description Date Type Department Omar Clay, DO [address] [place] [address], [place] [address] [phone] Ankylosing spondylitis of multiple sites in spine (Primary Dx); Bilateral carpal tunnel syndrome; Chronic thumb pain, bilateral; Folliculitis 11/19/2019 Office Visit [facility] Health Interna l Medicine [facility] [address], [address] [place] [address] Allergies Comments Active Allergy Reactions Severity Noted Date Aspirin Hives 03/21/2012 Sulfa (Sulfonamide Hives 11/29/2005 Antibiotics) documented as of this encounter (statuses as of 11/19/2019) Medications End Date Status Medication Sig Dispensed [...] unspecified site, unspecified rheumatoid factor presence Active esomeprazole (NEXIUM) 40 Take 1 90 [...] mg Take by mouth 60 tablet 0 11/06 tabletIndications: TAKE 5 0 Ankylosing spondylitis of TABLETS BY multiple sites in spine MOUTH 1 TIME WEEKLY 11/19/2019 Discontinued (Reorder) methotrexate 2.5 mg Take by mouth 60 tablet 0 08/09 tabletIndications: TAKE 5 0 Ankylosing spondylitis of TABLETS BY multiple sites in spine MOUTH 1 TIME WEEKLY documented as of this encounter (statuses as of 11/19/2019) Active Problems Problem Noted Date Acute vaginitis 10/08/2019 Essential hypertension 03/19/2019 Carpal tunnel syndrome on right 03/19/2019 Overview: EMG 02/18/2019 Special screening for malignant neoplasms, colon Overview: Added automatically from request for [employer] [id number] Cervical spondylosis with radiculopathy 01/01/2019 Overview: Added automatically from request for [employer] [id number] Mixed hyperlipidemia 08/13/2018 Overview: LDL 140 07/17/2018 Left tennis elbow 06/17/2018 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 Overview: R Avulsion fracture of lateral epicondyle of humerus 0 11/14/2017 Painful patella, unspecified laterality 11/05/2017 S/P revision of total hip 09/18/2017 Colon cancer screening 05/24/2017 Overview: Added automatically from request for [employer] [id number] Hematemesis with nausea 05/24/2017 Overview: Added automatically from request for marquez [employer] [id number] Nausea and vomiting, intractability of vomiting not s pecified, unspecified 05/24/2017 vomiting type Overview: Added automatically from request for jimmy solorio [id number] ANJELICA (obstructive sleep apnea) 05/10/2017 Obesity (BMI 30-39.9) 05/01/2017 Microhematuria 02/14/2017 Complex tear of medial meniscus of right knee as curr ent injury, initial 01/18/2017 encounter Overview: Added automatically from request for jimmy solorio [id number] Elevated MCV 07/25/2016 Overview: 103.4 07/22/2016 Muscle [...] lobe nodular opacitiy on chest xray at [facility] 05/22/2015 Hiatus hernia syndrome 04/09/2015 Overview: EGD 03/23/2015 [facility] screening mammogram 01/06/2015 Immunization deficiency 10/09/2014 Overview: [...] lower leg 11/25/2013 Overview: ICD10 Diagnosis Term [employer] Knee crepitus 11/25/2013 Genu valgum, acquired 11/25/2013 Overview: ICD10 Diagnosis Term [employer] Patellofemoral misalignment with pain 11/25/2013 [...] 11/16/2010 Headache 04/08/2010 Overview: ICD10 Diagnosis [employer] Nonerosive nonspecific gastritis 04/08/2010 Overview: EGD Dr. Lloyd Glossitis 02/23/2010 Tobacco use disorder 02/23/2010 Menorrhagia 05/19/2009 Vision blurred 05/19/2009 Acute upper respiratory infection 08/14/2008 Overview: ICD10 Diagnosis Term [employer] Acute pharyngitis 08/14/2008 Screening for malignant neoplasm of cervix 9 Overview: ICD10 Diagnosis Term [employer] Breast screening 07/16/2008 Overview: ICD10 Diagnosis Term [employer] Urinary tract infection, site not specified 04/29/20 08 Backache 06/02/2007 Overview: Lower back pain ICD10 Diagnosis Term [employer] Pain in joint 06/02/2007 Overview: ICD10 Diagnosis [employer] Cervicalgia 06/02/2007 Myalgia and myositis 06/02/2007 Overview: Bilateral trapezius pain ICD10 Diagnosis Term [employer] Absence of menstruation 04/25/2007 Anemia 03/25/2007 Overview: ICD10 Diagnosis Term [employer] Helicobacter pylori infection 06/11/2006 Overview: ICD10 Diagnosis Term [employer] Acute peptic ulcer 06/11/2006 Overview: ICD10 Diagnosis Term [employer] Abdominal pain 04/25/2006 Overview: ICD10 Diagnosis Term [employer] Ankylosing spondylitis 04/25/2006 Vaginitis and vulvovaginitis 04/25/2006 Overview: ICD10 Diagnosis Term [employer] Other, mixed, or unspecified nondependent drug abuse, continuous 11/30/2005 documented as of this encounter (statuses as of 11/19/2019) Resolved Problems Problem Noted Date Resolved Date Arm laceration, right, subsequent encounter 04/13/2014 04/13/2014 Syncope and collapse 02/27/2007 06/28/2014 Bipolar I disorder, most recent episode (or current) unspec ified 01/03/2007 01/23/2018 Overview: Dr. 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 Date Recorded COVID-19 Exposure Response 11/19/2019 8:51 AM CDT In the last month, have you been in contact with No / Unsure someone who was confirmed or suspected to have Coronavirus / COVID-19? documented as of this encounter Last Filed Vital Signs Reading Time Taken Comments Vital Sign 124/80 11/19/2019 8:49 AM CDT Blood Pressure 87 11/19/2019 8:49 AM CDT Pulse 36.8 C (98.3 F) 11/19/2019 8:49 AM CDT Temperature 20 11/19/2019 8:49 AM CDT Respiratory Rate 98% 11/19/2019 8:49 AM CDT Oxygen Saturation - - Inhaled Oxygen Concentration 88.4 kg (194 lb 14.4 oz) 11/19/2019 8:49 AM CDT Weight 165.1 cm (5' 5") 11/19/2019 8:49 AM CDT Height 32.43 11/19/2019 8:49 AM CDT Body Mass Index documented in this encounter Progress Notes * Omar Clay, DO - 11/19/2019 8:20 AM CDT f/u of Ankylosing Spondylitis (B27 + / [...] Her has also been complicated by uveitis. Sees Dr. Good. Her schizoaffective disorder has been reasonably controlled [...] his likely ties into her issue with weght gain. Has not seen derm for NMSC [...] MTX be re-[facility]. [facility] and she has been compliant with [facility] brittney. We r/s MTX/remicade. She saw opthalmology and had iritis. Most likely due to interruption in Remicad e. Saw Dr. Vallejo. Injected eye. She started seeing Dr. Good (oph outside [facility]) and he recommended increasing Remicade. The dose is up to 7 mg/kg. She wa s encouraged to f/u with him ALEKSANDR because it appears she has stopped her drops ( ran out) and it's not clear if the increased Remicade dose has worked. She saw him and we have records from October in which further w/u was planned. However, she recently saw him again in November and said they started some eye drops (steroids presumably). It's not clear if they want to increase dose of Remicade. (Will try to get note. She said she saw his bacteriology research assistant) She has diffuse pain, and is concerned about neuropathy. She also has headaches . No alter signs. She saw Dr. Gordillo and an MRI of the brain was negative, but there was an incidental note of some abnormality around Waldeyer's ring. Saw EN T. Not pathological. No R/V. She reports all vaccines UTD. Ran out of MTX 2 weeks ago Notes rash around elbows (dorsal/distal). C/O CMC pain b/l and numbness in unclear distribution in hands. No weakness. H x CTR R. She is following with: Samira for MAC [...] upper respiratory infections of unspecified site 08/14/2008 Acute vaginitis 10/08/2019 Anemia, unspecified 03/25/2007 Ankylosing spondylitis diagnosed around [...] Surgeon: Maged Franklin MD PHD; Location: [facility] CERVICAL EPIDURAL STEROID INJECTION N/A 01/23/2019 Surgeon: Sebastian Doe; Location: [facility] COLONOSCOPY N/A 06/22/2015 Surgeon: Arian To MD; [facility] COLONOSCOPY N/A 02/17/2019 Surgeon: Ricco Hannah DO; Location: [facility] EGD (ENDO) 03/23/2015 [facility] ESOPHAGOGASTRODUODENOSCOPY 04/13 ulcers ESOPHAGOGASTRODUODENOSCOPY 06/15 ESOPHAGOGASTRODUODENOSCOPY 10/07/2009 mild nonerosive gastritis ESOPHAGOGASTRODUODENOSCOPY N/A 06/22/2015 Surgeon: Arian To MD; [facility] ESOPHAGOGASTRODUODENOSCOPY N/A 02/17/2019 Surgeon: Ricco Hannah DO; Location: [facility] Location FLEXIBLE BRONCHOSCOPY 05/24/2015 Magui Hogan HIP HEMIARTHROPLASTY 2001 Right KNEE ARTHROSCOPY Right 01/06/2014 Surgeon: Girish Fountain MD; Location: [facility] OR [facility] OPEN CARPAL TUNNEL RELEASE Right 07/15/2019 Surgeon: Zia Resendez MD; Location: [facility] Location DC ARTHRS KNE SURG W/MENISCECTOMY MED/LAT W/SHVG 01/06/2014 [facility] KNEE SCOPE,REMV LOOSE BODY 01/06/2014 TOTAL HIP ARTHROPLASTY REVISION Right 09/18/2017 Surgeon: Sbeastian Bunn MD; Location: [facility] TUBAL LIGATION 1988 Current Outpatient Medications Medication Sig Dispense Refill methotrexate 2.5 mg tablet Take by mouth TAKE 5 TABLETS BY MOUTH 1 TIME WEEK LY 60 tablet 0 ziprasidone 20 mg capsule Take 1 capsule by mouth 2 (two) times daily with m eals. 60 capsule 2 zolpidem (AMBIEN) 10 mg tablet Take 1 tablet by mouth at bedtime as needed f or Insomnia. 30 tablet 2 ergocalciferol, vitamin d2, 1,250 mcg (50,000 unit) capsule Take 1 capsule b y mouth weekly. 8 capsule 0 HYDROcodone-acetaminophen 10-325 mg tablet Take 1 tablet by mouth every 6 (s ix) hours as needed for Pain (scale 4-6). 120 tablet 0 cyclobenzaprine 5 mg tablet TAKE [...] BID X 7 DAYS 14 tablet 0 foLIC acid 1 mg tablet Take 2 tablets by mouth daily. 180 tablet 3 LORazepam 1 mg tablet Take one tablet by mouth daily as needed for anxiety 6 tablet 0 ethambutol 400 mg tablet 3 tabs three times a week rifAMPin 300 mg capsule 2 tabs 3 x weekly CYCLOBENZAPRINE 5 mg tablet TAKE 1 TABLET [...] mg/kg Q 8 W PHYSICAL EXAM: Vitals: 11/19/19 0849 BP: 124/80 BP Location: Left arm Patient Position: Sitting BP CUFF SIZE: Adult Medium Pulse: 87 Resp: 20 Temp: 36.8 C (98.3 F) TempSrc: Oral SpO2: 98% Weight: 194 lb 14.4 oz (88.4 kg) Height: 5' 5" (1.651 m) GENERAL: Alert OX3 NAD, minimally interactive SKIN: Probable folliculitis with post inflammatory hyperpigmentation b/l elbows. HEENT: within normal limits, no lymphadenopathy, no oral ulcers noted. No paroti d enlargement noted. NECK: C-spine with reduced ROM. No lymphadenopathy. No axial lypmhadenopathy LUNGS: clear without wheezes or crackles. HEART: normal, regular rate and rhythm, S1 - S2 , no gallops, clicks or rubs. NEUROMUSCULAR: Tinel negative and strength in hands good. No muscular weakness proximally or distally. MSK: [...] UA 2+ blood, 6 RBC and 3 CORPORATE SALES TRAINER. 01/06/15 CRP 1.1. ESR 29. MCV 98.8. [...] WNL. UA 2 + bl. 13 R. 3+CORPORATE SALES TRAINER. 05/15/17 CBC MCV 102.1 CRP 1.8. CMP [...] 8 weeks)and MTX 3 tabs/week along with ramiro MORENO(after she was on 1 month of MAC [...] to f/u with Dr. Good re uveitis. I'll ask staff to have his last (o r bacteriology research assistant's last) note sent. (Please ask Dr. Good to send last progress not e so we can see what they thought. Ask if they want us to increase Remicade due to uveitis.) Plan: - Remicade infusions 7mg/kg every 8 weeks - Pain control - Gets pain meds from PCP. - methotrexate 5 tablets weekly. Same as above for Remicade. RF today in antic ipation of getting labs on way out today. - folic acid - continue H/o Mycobacterium [...] injected. She switched to Dr. Good outside [facility]. He recommended increasing Remicade. We upped it to 7 mg/kg. Will get his last note. Plan: educated about the importance of following up with Ophthalmology and advis ed to be compliant with the follow ups. Needs to f/u to see effect of intervent ion. - encouraged her to keep her appointments with ophthalmology. F/u with Dr. Magi sewell and let me know if any changes are needed. See above for more about Dr. Magi sewell Schizoaffective disorder, bipolar type Plan: advised to [...] with orthopedics Skin darkening and needs NMSC check. Also has what appears to be folliculitis a bout elbows with post inflammatory hyperpigmenation. Plan - Derm consult set up for this and NMSC checks. Recurrent vaginal yeast infection and chronic hematuria/mostly microscopic Plan - Had consult with nephrology on order by other provider. Follow up to be sure the vaginal yeast infection has cleared. If it worsens or spreads may have to reconsider DMARD, bDMARD therapy. CMC OA vs CTS b/l Plan: Cock up splints. EMG. X-rays Next QFG Aug 2020. Should keep vaccine UTD with Dr. Hogan and/or PCP. See Derm for NMSC checks. Orders Placed This Encounter Procedures XR HAND 3+ VW BILATERAL CBC WITH DIFF SEDIMENTATION RATE C-REACTIVE PROTEIN COMP. METABOLIC PANEL (87864) CONSULT DERMATOLOGY RTC 3 months documented in this encounter Plan of Treatment Care Team Description Date Type Specialty Omar Clay DO [address] [place] [address] [phone] Pcp-Lab Arrived 11/19/2019 Tipple Engineer [place] [address] [place] [phone] 11/28/2019 Telemedicine Family Medicine Visit Trey Vega MD [address] [place] [phone] 12/25/2019 Office Visit Dermatology Omar Clay, DO [address] [place] [address] [phone], Jennifer Adult Infusion Nurse 01/13/2020 Nurse Visit [place] [address] [place] [address] 01/16/2020 Appointment Radiology Giuliano Gardner, [employer]OR [employer] HELPER [address] [place] [address] [phone] 01/16/2020 Appointment Radiology ObedOmar, DO [address] [place] [address] [phone] 02/24/2020 Office Visit Rheumatology Order Schedule Name Type Priority Associated Diag noses Ordered: 11/19/2019 CBC WITH DIFF LAB Routine Ankylosing spon dylitis of multiple sites in spine Ordered: 11/19/2019 SEDIMENTATION RATE LAB Routine Ankylosing spondylitis of multiple sites in spine Ordered: 11/19/2019 C-REACTIVE PROTEIN LAB Routine Ankylosing spondylitis of multiple sites in spine Ordered: 11/19/2019 COMP. METABOLIC PANEL LAB Routine Ankylosi ng spondylitis of (05829) multiple sites in spine Expected: 11/19/2019, Expires: 0 EMGNCV EMG Routine Ankylosing spon dylitis of multiple sites in spine Expected: 11/19/2019, Expires: 1 XR HAND 3+ VW BILATERAL IMAGING Routine Ankylo sing spondylitis of multiple sites in spine Health [...] UH1-44-28 / 0 / [id number] Bipolar Head, Williams Uhr Bipolar BIPOLAR Right: Hip Williams 71a50pd #[id number] - S0 head Implanted: Qty: 1 on 09/18/2017 by Sebastian Bunn MD at [facility] 07/07/2021 1023-12 / [id number] / [id number] Cancellous Cubes, Community Tissue BONE Right: Hip [facility] Services Freeze Dried 30 Cc Tissue #1023-12 - [id number] Services Implanted: Qty: 1 on 09/18/2017 by Sebastian Bunn MD at [facility] 03/08/20182017-40 / [id number] / [id number] Dbm Putty Maxxeus 10cc Cts #2017- BONE Right: Hip [facility] [id number] Tissue Implanted: Qty: 1 on 09/18/2017 by Services Sebastian Bunn MD at [facility] 04/07/2022 1365-28-720 / 0 / [id number] Delta Ceramic Femoral Head 28mm +5 Head Right: Hip Depuy 06/21 Taper Depuy Ref#[id number] Synthes Implanted: Qty: 1 on 09/18/2017 by Sebastian Bunn MD at [facility] 03/29/2022 623-00-44F / 0 / [id number] Insert, Donal Trident 0deg 44mm Liner Right: Hip Donal #[id number] Implanted: Qty: 1 on 09/18/2017 by Sebastian Bunn MD at [facility] 04/24/2022 5260-5-050 / 0 / [id number] Screw Osteolock 3.[address] SCREW Right: Hip Williams Cancellous 50mm Williams Ref#[id number] Implanted: Qty: 2 on 09/18/2017 by Sebastian Bunn MD at [facility] 06/01/2022 5260-5-020 / 0 / [id number] Screw Ostelock 3.[address] SCREW Right: Hip Donal Cancellous 20mm Williams Ref#[id number] Implanted: Qty: 1 on 09/18/2017 by Sebastian Bunn MD at [facility] 06/01/2022 5260-5-016 / 0 / [id number] Screw Osteolock 3.[address] SCREW Right: Hip Williams Cancellous 18mm Donal Ref#[id number] Implanted: Qty: 1 on 09/18/2017 by Sebastian Bunn MD at [facility] 01/02/2022 [id number] / 0 / [id number] Shell, Donal Tritanium Revision Shell Right: Hip Williams Acetabular #[id number] - S0 Implanted: Qty: 1 on 09/18/2017 by Sebastian Bunn MD at [facility] documented as of this encounter Results Not on filedocumented in this encounter Visit Diagnoses Diagnosis Ankylosing spondylitis of multiple site s in spine - Primary Ankylosing spondylitis Bilateral carpal tunnel syndrome Carpal tunnel syndrome Chronic thumb pain, bilateral Folliculitis Other specified disease of hair and cindy r follicles documented in this encounter Insurance Type Payer Benefit Subscriber ID Effective Phone Address Plan / Dates Group Medicare Adv HMO [facility] [place] [id number] 2018- MANAGED MEDICARE HEALTHCARE Present DUAL COMPLETE HMO Medicaid [facility] MEDICAID xxxxxxxxx 2019-P [phone] [address] [facility] [place] [address] [place] [address] ([place]) [place] [address] documented as of this encounter Advance Directives Patient Shuttle Fitting Supervisor Explanation Type Date Recorded 0 Advance Directives 08/08/2013 8:00 AM and Living Will Power of Fitting Supervisor 08/08/2013 8:00 AM
--- OUTSIDE RECORDS SUMMARY | 2019-12-13 15:38 | XMS REPORT | Summary of Care ---
Author Author [facility] - Health Organization [facility] - Health Address Unknown Phone Unavailable Care Team Providers Care Transportation Maintenance Supervisor Name Role Phone Ovidio Clarke MD PCP Reason for Visit * Reason Comments Infusion Therapy * (Routine) Referred By Contact Referred To Contact Status Reason Specialty Diagnoses / Procedures Omar Clay DO [address] [place] [address] Authorized Infusion Therapy Diagnoses Rheumatoid arthritis, involving unspecified site, unspecified rheumatoid factor presence P rocedures CONSULT/REFERRAL AMB INFUSION THERAPY Preferred location: [place] ([facility] 3rd Floor) Encounter Details Care Team Description Date Type Department Omar Clay DO [address] [place], [place] [address] 2, Jennifer Adult Infusion Nurse Ankylosing spondylitis, unspecified site of spine (Primary Dx) 11/18/2019 Nurse Visit [facility] [place], [facility] [address] [facility] [address] [place] [phone] Allergies Comments Active Allergy Reactions Severity Noted Date Aspirin Hives 03/21/2012 Sulfa (Sulfonamide Hives 11/29/2005 Antibiotics) documented as of this encounter (statuses as of 11/18/2019) Medications End Date Status Medication Sig Dispensed [...] as of this encounter (statuses as of 11/18/2019) Active Problems Problem Noted Date Acute vaginitis 10/08/2019 Essential hypertension 03/19/2019 Carpal tunnel syndrome on right 03/19/2019 Overview: EMG 02/18/2019 Special screening for malignant neoplasms, colon Overview: Added automatically from request for jimmy soolrio [id number] Cervical spondylosis with radiculopathy 01/01/2019 Overview: Added automatically from request for jimmy solorio [id number] Mixed hyperlipidemia 08/13/2018 Overview: LDL 140 07/17/2018 Left tennis elbow 06/17/2018 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 Overview: R Avulsion fracture of lateral epicondyle of humerus 0 11/14/2017 Painful patella, unspecified laterality 11/05/2017 S/P revision of total hip 09/18/2017 Colon cancer screening 05/24/2017 Overview: Added automatically from request for jimmy solorio [id number] Hematemesis with nausea 05/24/2017 Overview: Added automatically from request for jimmy solorio [id number] Nausea and vomiting, intractability of vomiting not s pecified, unspecified 05/24/2017 vomiting type Overview: Added automatically from request for jimmy solorio [id number] ANJELICA (obstructive sleep apnea) 05/10/2017 Obesity (BMI 30-39.9) 05/01/2017 Microhematuria 02/14/2017 Complex tear of medial meniscus of right knee as curr ent injury, initial 01/18/2017 encounter Overview: Added automatically from request for jimmy solorio [id number] Elevated MCV 07/25/2016 Overview: 103.4 07/22/2016 Muscle [...] [place] [facility] [place] 01/06/2015 Immunization deficiency 10/09/2014 [...] lower leg 11/25/2013 Overview: ICD10 Diagnosis Term Healthcare Economics Consultant Utility Knee crepitus 11/25/2013 Genu valgum, acquired 11/25/2013 Overview: ICD10 Diagnosis Term [employer] Consultant Utility Patellofemoral misalignment with pain 11/25/2013 [...] 11/16/2010 Headache 04/08/2010 Overview: ICD10 Diagnosis Term [employer] Economics Consultant Utility Nonerosive nonspecific gastritis 04/08/2010 Overview: EGD Dr. Lloyd Glossitis 02/23/2010 Tobacco use disorder 02/23/2010 Menorrhagia 05/19/2009 Vision blurred 05/19/2009 Acute upper respiratory infection 08/14/2008 Overview: ICD10 Diagnosis Term [employer] Consultant Utility Acute pharyngitis 08/14/2008 Screening for malignant neoplasm of cervix Overview: ICD10 Diagnosis Term [employer] Consultant Utility Breast screening 07/16/2008 Overview: ICD10 Diagnosis Term [employer] Consultant Utility Urinary tract infection, site not specified 04/29/20 08 Backache 06/02/2007 Overview: Lower back pain ICD10 Diagnosis Term [employer] Consultant Utility Pain in joint 06/02/2007 Overview: ICD10 Diagnosis Term [employer] Consultant Utility Cervicalgia 06/02/2007 Myalgia and myositis 06/02/2007 Overview: Bilateral trapezius pain ICD10 Diagnosis Term [employer] Consultant Utility Absence of menstruation 04/25/2007 Anemia 03/25/2007 Overview: ICD10 Diagnosis Term [employer] Consultant Utility Helicobacter pylori infection 06/11/2006 Overview: ICD10 Diagnosis Term [employer] Consultant Utility Acute peptic ulcer 06/11/2006 Overview: ICD10 Diagnosis Term [employer] Consultant Utility Abdominal pain 04/25/2006 Overview: ICD10 Diagnosis Term [employer] Consultant Utility Ankylosing spondylitis 04/25/2006 Vaginitis and vulvovaginitis 04/25/2006 Overview: ICD10 Diagnosis Term [employer] Consultant Utility Other, mixed, or unspecified nondependent drug abuse, continuous 11/30/2005 documented as of this encounter (statuses as of 11/18/2019) Resolved Problems Problem Noted Date Resolved Date Arm laceration, right, subsequent encounter 04/13/2014 04/13/2014 Syncope and collapse 02/27/2007 06/28/2014 Bipolar I disorder, most recent episode (or current) unspec ified 01/03/2007 01/23/2018 Overview: Dr. 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 Date Recorded COVID-19 Exposure Response 11/18/2019 9:58 AM CDT In the last month, have you been in contact with No / Unsure someone who was confirmed or suspected to have Coronavirus / COVID-19? documented as of this encounter Last Filed Vital Signs Reading Time Taken Comments Vital Sign 107/69 11/18/2019 10:09 AM CDT Blood Pressure 90 11/18/2019 10:09 AM CDT Pulse 36.7 C (98 F) 11/18/2019 10:09 AM CDT Temperature 16 11/18/2019 10:09 AM CDT Respiratory Rate - - Oxygen Saturation - - Inhaled Oxygen Concentration 87.8 kg (193 lb 9 oz) 11/18/2019 10:09 AM CDT Weight - - Height 32.21 09/23/2019 1:16 PM CDT Body Mass Index documented in this encounter Progress Notes * Arian Shirley RN - 11/18/2019 11:30 AM CDT Infusion Therapy Note ALLERGIES: Aspirin and Sulfa (sulfonamide antibiotics) Diagnosis (Primary) Ankylosing spondylitis, unspecified site of spine Time Out Patient identified by Name and IV Therapy Type:Peripheral Site Location:left forearm Blood return present:yes I.V. Flush:0.9 NS 10cc x 1 syringe I.V. Patent:yes I.V. Fluids:None During administration:burning: yes, redness: yes and swelling: yes Comments: Peripheral IV ordered. Chlorprep and clean technique utilized. IV es tablished with 24 gauge needle after 1 attempts in the left forearm. Patient to lerated procedure well. Good blood return and catheter flushes easily. No rednes s, edema or burning noted. Remicade running via pump. ANTIEMETIC/PREMED/OTHER DRUG DOSE ROUTE START TIME STOP TIME Tylenol 650 mg PO 1023 1023 Benadryl 25 mg PO 1024 1024 HYDRATION/THERAPEUTIC DRUG DOSE ROUTE START TIME STOP TIME Remicade 615 mg IV 1055 1300 Comments: Infusion completed without incident. IV tubing flushed with IV fluids. PIV discontinued, pressure held, bandaid applied. IV catheter appears intact on visual inspection. Patient provided with preferred teaching of verbal informati on on plan of care. Shows readiness to learn. Verbal instruction teaching provid ed. Individual is able to read and verbalizes understanding of teaching provided . Patient departed ambulatory from clinic. documented in this encounter Plan of Treatment Care Team Description Date [place] [address] [place] [address] 11/28/2019 Telemedicine Family Medicine Visit Omar Clay, [address] [place] [address] [phone] 2, Jennifer Adult Infusion Nurse 01/13/2020 Nurse Visit [place] [address] [place] [phone] 01/16/2020 Appointment Radiology Giuliano Gardner, [place] [address] [place] [address] [phone] 01/16/2020 Appointment Radiology Health Maintenance Due Date [...] UH1-44-28 / 0 / R01HPT Bipolar Head, Armstrong Uhr Bipolar BIPOLAR Right: Hip Armstrong [id number] #Uh1-44-28 - S0 head Implanted: Qty: 1 on 09/18/2017 by Sebastian Bunn MD at [facility] 07/07/2021 1023-12 / [id number] / [id number] Cancellous Cubes, Community Tissue BONE Right: Hip [facility] Services Freeze Dried 30 Cc Tissue #1023-12 - [id number] Services Implanted: Qty: 1 on 09/18/2017 by Sebastian Bunn MD at [facility] 03/08/2018 2018-40 / [id number] / [id number] Dbm Putty Maxxeus 10cc Cts #2017-40 BONE Right: Hip [facility] - [id number] Tissue Implanted: Qty: 1 on 09/18/2017 by Services Sebastian Bunn MD at [facility] 04/07/2022 1365-28-720 / 0 / [id number] Delta Ceramic Femoral Head 28mm +5 Head Right: Hip Depuy 06/21 Taper Depuy Ref#[id number] Synthes Implanted: Qty: 1 on 09/18/2017 by Sebastian Bunn MD at [facility] 03/29/2022 623-00-44F / 0 / [id number] Insert, Donal Trident 0deg 44mm Liner Right: Hip Armstrong #[id number] Implanted: Qty: 1 on 09/18/2017 by Sebastian Bunn MD at [facility] 04/24/2022 5260-5-050 / 0 / [id number] Screw Osteolock [address] SCREW Right: Hip Donal Cancellous 50mm Armstrong Ref#[id number] Implanted: Qty: 2 on 09/18/2017 by Sebastian Bunn MD at [facility] 06/01/2022 5260-5-020 / 0 / [id number] Screw Ostelock 3.[address] SCREW Right: Hip Donal Cancellous 20mm Donal Ref#[id number] Implanted: Qty: 1 on 09/18/2017 by Sebastian Bunn MD at [facility] 06/01/2022 5260-5-016 / 0 / [id number] Screw Osteolock 3.[address] SCREW Right: Hip Armstrong Cancellous 18mm Armstrong Ref#[id number] Implanted: Qty: 1 on 09/18/2017 by Sebastian Bunn MD at [facility] 01/02/2022 509-02-60F / 0 / [id number] Shell, Donal Tritanium Revision Shell Right: Hip Armstrong Acetabular #[id number] - S0 Implanted: Qty: 1 on 09/18/2017 by Sebastian Bunn MD at [facility] documented as of this encounter Results Not on filedocumented in this encounter Visit Diagnoses Diagnosis Ankylosing spondylitis, unspecified sit e of spine - Primary documented in this encounter Administered Medications Action Date Dose Rate Site Medication Order MAR Action 11/18/2019 10:23 AM CDT 650 mg acetaminophen (TYLENOL) tablet 650 mg Given 650 mg, Oral, ONCE, 1 dose, 11/18/19 at 1130, Routine 11/18/2019 10:24 AM CDT 25 mg diphenhydrAMINE (BENADRYL) tablet 25 mg Given 25 mg, Oral, ONCE, 1 dose, 11/18/19 at 1130, Routine 11/18/2019 10:55 AM CDT 615 mg inFLIXimab (REMICADE) 615 mg in NaCl Given 0.9% (NS) infusion 615 mg (rounded from 614.6 mg = 7 mg/kg 87.8 kg), IV Piggyback, ONCE, 1 dose, 11/18/19 at 1115, 250 mL, Criteria for use: Patient currently on Remicade documented in this encounter Insurance Type Payer Benefit Subscriber ID Effective Phone Address Plan / Dates Group Medicare Adv HMO [employer] - UNITED [id number] 2018- MANAGED MEDICARE HEALTHCARE Present DUAL COMPLETE O Medicaid [facility] MEDICAID xxxxxxxxx 2019-P [phone] [address] documented as of this encounter Advance Directives Patient Stock Speculator Explanation Type Date Recorded 0 Advance Directives 08/08/2013 8:00 AM and Living Will Power of Marine Painter 08/08/2013 8:00 AM
--- OUTSIDE RECORDS SUMMARY | 2019-12-13 15:38 | XMS REPORT | Summary of Care ---
Author Author [facility] - Health Organization [facility] - Health Address Unknown Phone Unavailable Care Team Providers Care Automation Specialist Name Role Phone Ovidio Clarke MD PCP Encounter Details Care Team Description Date Type Department Doctor Unassigned, [place] [address] [place] [address] 11/12/2019 Orders Only [facility] [address] [place] [address] Allergies Comments Active Allergy Reactions Severity Noted Date Aspirin Hives 03/21/2012 Sulfa (Sulfonamide Hives 11/29/2005 Antibiotics) documented as of this encounter (statuses as of 11/12/2019) Medications End Date Status Medication Sig Dispensed [...] as of this encounter (statuses as of 11/12/2019) Active Problems Problem Noted Date Acute vaginitis 10/08/2019 Essential hypertension 03/19/2019 Carpal tunnel syndrome on right 03/19/2019 Overview: EMG 02/18/2019 Special screening for malignant neoplasms, colon Overview: Added automatically from request for jimmy solorio [id number] Cervical spondylosis with radiculopathy 01/01/2019 Overview: Added automatically from request for jimmy solorio [id number] Mixed hyperlipidemia 08/13/2018 Overview: LDL 140 07/17/2018 Left tennis elbow 06/17/2018 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 Overview: R Avulsion fracture of lateral epicondyle of humerus 0 11/14/2017 Painful patella, unspecified laterality 11/05/2017 S/P revision of total hip 09/18/2017 Colon cancer screening 05/24/2017 Overview: Added automatically from request for jimmy solorio [id number] Hematemesis with nausea 05/24/2017 Overview: Added automatically from request for jimmy solorio [id number] Nausea and vomiting, intractability of vomiting not s pecified, unspecified 05/24/2017 vomiting type Overview: Added automatically from request for jimmy solorio [id number] ANJELICA (obstructive sleep apnea) 05/10/2017 Obesity (BMI 30-39.9) 05/01/2017 Microhematuria 02/14/2017 Complex tear of medial meniscus of right knee as curr ent injury, initial 01/18/2017 encounter Overview: Added automatically from request for jimmy solorio [id number] Elevated MCV 07/25/2016 Overview: 103.4 07/22/2016 Muscle [...] 04/09/2015 Overview: EGD 03/23/2015 [facility] screening mammogram 01/06/2015 Immunization deficiency 10/09/2014 [...] lower leg 11/25/2013 Overview: ICD10 Diagnosis Term Front End Ui Developer Utility Knee crepitus 11/25/2013 Genu valgum, acquired 11/25/2013 Overview: ICD10 Diagnosis Term Front End Ui Developer Utility Patellofemoral misalignment with pain 11/25/2013 [...] 11/16/2010 Headache 04/08/2010 Overview: ICD10 Diagnosis Term Front End Ui Developer Utility Nonerosive nonspecific gastritis 04/08/2010 Overview: EGD Dr. Lloyd Glossitis 02/23/2010 Tobacco use disorder 02/23/2010 Menorrhagia 05/19/2009 Vision blurred 05/19/2009 Acute upper respiratory infection 08/14/2008 Overview: ICD10 Diagnosis Term Front End Ui Developer Utility Acute pharyngitis 08/14/2008 Screening for malignant neoplasm of cervix 9 Overview: ICD10 Diagnosis Term Front End Ui Developer Utility Breast screening 07/16/2008 Overview: ICD10 Diagnosis Term Front End Ui Developer Utility Urinary tract infection, site not specified 04/29/20 08 Backache 06/02/2007 Overview: Lower back pain ICD10 Diagnosis Term Front End Ui Developer Utility Pain in joint 06/02/2007 Overview: ICD10 Diagnosis Term Front End Ui Developer Utility Cervicalgia 06/02/2007 Myalgia and myositis 06/02/2007 Overview: Bilateral trapezius pain ICD10 Diagnosis Term Front End Ui Developer Utility Absence of menstruation 04/25/2007 Anemia 03/25/2007 Overview: ICD10 Diagnosis Term Front End Ui Developer Utility Helicobacter pylori infection 06/11/2006 Overview: ICD10 Diagnosis Term Front End Ui Developer Utility Acute peptic ulcer 06/11/2006 Overview: ICD10 Diagnosis Term Front End Ui Developer Utility Abdominal pain 04/25/2006 Overview: ICD10 Diagnosis Term Front End Ui Developer Utility Ankylosing spondylitis 04/25/2006 Vaginitis and vulvovaginitis 04/25/2006 Overview: ICD10 Diagnosis Term Front End Ui Developer Utility Other, mixed, or unspecified nondependent drug abuse, continuous 11/30/2005 documented as of this encounter (statuses as of 11/12/2019) Resolved Problems Problem Noted Date Resolved Date Arm laceration, right, subsequent encounter 04/13/2014 04/13/2014 Syncope and collapse 02/27/2007 06/28/2014 Bipolar I disorder, most recent episode (or current) unspec ified 01/03/2007 01/23/2018 Overview: Dr. 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 Date Recorded COVID-19 Exposure Response 10/22/2019 3:08 PM CDT In the last month, have you been in contact with No / Unsure someone who was confirmed or suspected to have Coronavirus / COVID-19? documented as of this encounter Last Filed Vital Signs Not on filedocumented in this encounter Plan of Treatment Care Team Description Date Type Specialty Omar Clay, [address] [place] [address] [phone] 11/18/2019 Telemedicine [place] [address] [place] [address] 11/28/2019 Telemedicine Family [place] [address] [place] [address] 01/16/2020 Appointment Radiology Giuliano Gardner, FINANCIAL ANALYSIS CONSULTANT [address] [place] [address] [phone] 01/16/2020 Appointment Radiology Health Maintenance Due Date [...] UH1-44-28 / 0 / R01HPT Bipolar Head, [place] Uhr Bipolar BIPOLAR Right: Hip Donal [id number] #Uh1-44-28 - S0 head Implanted: Qty: 1 on 09/18/2017 by Sebastian Bunn MD at [facility] 07/07/2021 1023-12 / [id number] / [id number] Cancellous Cubes, [facility] Tissue BONE Right: Hip [facility] Services Freeze Dried 30 Cc Tissue #1023-12 - [id number] Services Implanted: Qty: 1 on 09/18/2017 by Sebastian Bunn MD at [facility] 03/08/2018 2018-40 / [id number] / [id number] Dbm Putty Maxxeus 10cc Cts #2018-40 BONE Right: Hip [facility] - [id number] Tissue Implanted: Qty: 1 on 09/18/2017 by Services Sebastian Bunn MD at [facility] 04/07/2022 1365-28-720 / 0 / [id number] Delta Ceramic Femoral Head 28mm +5 Head Right: Hip Depuy 12/14 Taper Depuy Ref#[id number] Synthes Implanted: Qty: 1 on 09/18/2017 by Sebastian Bunn MD at [facility] 03/29/2022 623-00-44F / 0 / [id number] Insert, [place] Trident 0deg 44mm Liner Right: Hip Donal #[id number] Implanted: Qty: 1 on 09/18/2017 by Sebastian Bunn MD at [facility] 04/24/2022 5260-5-050 / 0 / [id number] Screw Osteolock 3.[address] SCREW Right: Hip Donal Cancellous 50mm [place] Ref#[id number] Implanted: Qty: 2 on 09/18/2017 by Sebastian Bunn MD at [facility] 06/01/2022 5260-5-020 / 0 / [id number] Screw Ostelock 3.[address] SCREW Right: Hip Donal Cancellous 20mm Donal Ref#[id number] Implanted: Qty: 1 on 09/18/2017 by Sebastian Bunn MD at [facility] 06/01/2022 5260-5-016 / 0 / [id number] Screw Osteolock 3.[address] SCREW Right: Hip Donal Cancellous 18mm Donal Ref#[id number] Implanted: Qty: 1 on 09/18/2017 by Sebastian Bunn MD at [facility] 01/02/2022 509-02-60F / 0 / [id number] Shell, Donal Tritanium Revision Shell Right: Hip [place] Acetabular #[id number] - S0 Implanted: Qty: 1 on 09/18/2017 by Sebastian Bunn MD at [facility] documented as of this encounter Procedures Comments Procedure Name Priority Date/Time Associated Diag nosis EXTERNAL PROVIDER RECORDS Routine 11/12/2019 12:01 AM CDT documented in this encounter Results Not on filedocumented in this encounter Insurance Type Payer Benefit Subscriber ID Effective Phone Address Plan / Dates Group Medicare Adv O [facility] [id number] 2018- MANAGED MEDICARE HEALTHCARE Present DUAL COMPLETE HMO [facility] [employer] [id number] 2018- [address] [employer] H Present [address] [place] [address] Medicaid [facility] MEDICAID xxxxxxxxx 2019-P [phone] [address] [place] [facility] [id number] [place] [address] documented as of this encounter Advance Directives 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
--- OUTSIDE RECORDS SUMMARY | 2019-12-13 15:38 | XMS REPORT | Summary of Care ---
Author Author [facility] - Health Organization [facility] - Health Address Unknown Phone Unavailable Care Team Providers Care Pediatrics Physician Name Role Phone Ovidio Clarke MD PCP Reason for Visit * Reason Comments Follow-up Encounter Details Care Team Description Date Type Department Sebastian Doe MD [id number] [place] [address] Chronic pain syndrome (Primary Dx); Cervical spondylosis with radiculopathy; Ankylosing spondylitis, unspecified site of spine 10/28/2019 Telemedicine [facility] Health Anesthe salma Visit [facility] [address] [place] [address] Allergies Comments Active Allergy Reactions Severity Noted Date Aspirin Hives 03/21/2012 Sulfa (Sulfonamide Hives 11/29/2005 Antibiotics) documented as of this encounter (statuses as of 11/05/2019) Medications End Date Status Medication Sig Dispensed [...] as of this encounter (statuses as of 11/05/2019) Active Problems Problem Noted Date Acute vaginitis 10/08/2019 Essential hypertension 03/19/2019 Carpal tunnel syndrome on right 03/19/2019 Overview: EMG 02/18/2019 Special screening for malignant neoplasms, colon Overview: Added automatically from request for jimmy solorio [id number] Cervical spondylosis with radiculopathy 01/01/2019 Overview: Added automatically from request for jimmy solorio [id number] Mixed hyperlipidemia 08/13/2018 Overview: LDL 140 07/17/2018 Left tennis elbow 06/17/2018 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 Overview: R Avulsion fracture of lateral epicondyle of humerus 0 11/14/2017 Painful patella, unspecified laterality 11/05/2017 S/P revision of total hip 09/18/2017 Colon cancer screening 05/24/2017 Overview: Added automatically from request for jimmy solorio [id number] Hematemesis with nausea 05/24/2017 Overview: Added automatically from request for marquez osmin [id number] Nausea and vomiting, intractability of vomiting not s pecified, unspecified 05/24/2017 vomiting type Overview: Added automatically from request for jimmy solorio [id number] ANJELICA (obstructive sleep apnea) 05/10/2017 Obesity (BMI 30-39.9) 05/01/2017 Microhematuria 02/14/2017 Complex tear of medial meniscus of right knee as curr ent injury, initial 01/18/2017 encounter Overview: Added automatically from request for jimmy solorio [id number] Elevated MCV 07/25/2016 Overview: 103.4 07/22/2016 Muscle [...] lobe nodular opacitiy on chest xray at [facility] 05/22/2015 Hiatus hernia syndrome 04/09/2015 [...] lower leg 11/25/2013 Overview: ICD10 Diagnosis Term Marketing Information Manager Utility Knee crepitus 11/25/2013 Genu valgum, acquired 11/25/2013 Overview: ICD10 Diagnosis Term Marketing Information Manager Utility Patellofemoral misalignment with pain 11/25/2013 [...] 11/16/2010 Headache 04/08/2010 Overview: ICD10 Diagnosis Term Marketing Information Manager Utility Nonerosive nonspecific gastritis 04/08/2010 Overview: EGD Dr. Lloyd Glossitis 02/23/2010 Tobacco use disorder 02/23/2010 Menorrhagia 05/19/2009 Vision blurred 05/19/2009 Acute upper respiratory infection 08/14/2008 Overview: ICD10 Diagnosis Term Marketing Information Manager Utility Acute pharyngitis 08/14/2008 Screening for malignant neoplasm of cervix 9 Overview: ICD10 Diagnosis Term Marketing Information Manager Utility Breast screening 07/16/2008 Overview: ICD10 Diagnosis Term Marketing Information Manager Utility Urinary tract infection, site not specified 04/29/20 08 Backache 06/02/2007 Overview: Lower back pain ICD10 Diagnosis Term Marketing Information Manager Utility Pain in joint 06/02/2007 Overview: ICD10 Diagnosis Term Marketing Information Manager Utility Cervicalgia 06/02/2007 Myalgia and myositis 06/02/2007 Overview: Bilateral trapezius pain ICD10 Diagnosis Term Marketing Information Manager Utility Absence of menstruation 04/25/2007 Anemia 03/25/2007 Overview: ICD10 Diagnosis Term Marketing Information Manager Utility Helicobacter pylori infection 06/11/2006 Overview: ICD10 Diagnosis Term Marketing Information Manager Utility Acute peptic ulcer 06/11/2006 Overview: ICD10 Diagnosis Term Marketing Information Manager Utility Abdominal pain 04/25/2006 Overview: ICD10 Diagnosis Term Marketing Information Manager Utility Ankylosing spondylitis 04/25/2006 Vaginitis and vulvovaginitis 04/25/2006 Overview: ICD10 Diagnosis Term Marketing Information Manager Utility Other, mixed, or unspecified nondependent drug abuse, continuous 11/30/2005 documented as of this encounter (statuses as of 11/05/2019) Resolved Problems Problem Noted Date Resolved Date Arm laceration, right, subsequent encounter 04/13/2014 04/13/2014 Syncope and collapse 02/27/2007 06/28/2014 Bipolar I disorder, most recent episode (or current) unspec ified 01/03/2007 01/23/2018 Overview: Dr. 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 Communication with patient was conducted via Telephone due to patient unable to obtain video call option. Location of Patient: Home Location of Provider: Clinic Date of Service: 10/28/2019 Chief Complaint: "Neck pain." HPI: Juan Tinoco is a 53 year old female with Past Medical History: Diagnosis Date Abdominal pain [...] 02/11/2012 Hiatus hernia syndrome 04/09/2015 EGD 03/23/2015 [facility] Immunization deficiency 10/09/2014 She is NOT [...] veins of legs 11/16/2010 Vision blurred 05/19/2009 I personally discussed the patient on 10/28/[address] Daly's reside nt note as written. I actively participated in the decision-making process. Pl ease see the resident's note for additional details. After visit summary (AVS ) documentation will be available through [employer] for t his encounter. A total of 15 minutes was spent on the Telephone due to patient unable to obtain video call option. Sebastian Doe MD * Mary Lou Daly MD - 10/28/2019 1:00 PM CDT TELEHEALTH NOTE Verbal consent obtained from Patient: Juan Tinoco for telehealth services pr ovided below. Communication with patient was conducted via Telephone due to patient unable to obtain video call option. Location of Patient: Home Location of Provider: Home Date of Service: 10/28/2019 Chief Complaint: neck pain History of Present illness: Juan Tinoco is a 53 year old female PMH ankylosing spondylitis (since 2003) presents with neck pain. Pain has been stable but reports carpal tunnel release on 07/15/19 did not improve pain. Reports last cervical SHANI on 01/23/2019 only prov ided 2-3 days of relief Location: neck pain -duration: years -context: ankylosing spondylitis -radiation: R>L BUE into hand/fingers -timing: constant -quality: achy -improves with: leaning to one side -worsens with: activity, movement -associated with: muscle cramps in hands PAIN NRS SCALE 0-10 SCORE OVER LAST WEEK (0 = no pain and 10 = worst pain imaginable): Best:6/10 Worst: 10/10 Now: 6/10 CURRENT PAIN REGIMEN: Per PCP: - Gabapentin 600 mg tid - taking consistently now but does not notice much chavira e in pain relief - Cyclobenzaprine 5 mg tid prn - Voltaren1 % gel - [place] 1 tablet prn - takes 3-4x/day ADVERSE EFFECTS FROM CURRENT REGIMEN: None Noted FUNCTIONAL STATUS ON CURRENT REGIMEN: All ADLS Past Medical History: Diagnosis Date Abdominal pain [...] 02/11/2012 Hiatus hernia syndrome 04/09/2015 EGD 03/23/2015 [facility] Immunization deficiency 10/09/2014 She is NOT [...] veins of legs 11/16/2010 Vision blurred 05/19/2009 Current Outpatient Medications Medication Sig Dispense Refill ziprasidone 20 mg capsule Take 1 capsule [...] BID X 7 DAYS 14 tablet 0 methotrexate 2.5 mg tablet Take by [...] 02/11/2012 Hiatus hernia syndrome 04/09/2015 EGD 03/23/2015 [facility] Immunization deficiency 10/09/2014 She is NOT [...] 01/06/2014 Surgeon: Girish Fountain MD; Location: [facility] OR LOCATION ARTHROSCOPIC MENISCAL REPAIR Right 01/06/2014 Surgeon: Girish Fountain MD; Location: [facility] OR LOCATION CERVICAL EPIDURAL STEROID INJECTION 03/26/2012 Surgeon: Maged Franklin MD PHD; Location: [facility] OR LOCATION CERVICAL EPIDURAL STEROID INJECTION N/A 01/23/2019 Surgeon: Sebastian Doe; Location: [facility] OR Location COLONOSCOPY N/A 06/22/2015 Surgeon: Arian To MD; Location: [facility] OR LOCATION COLONOSCOPY N/A 02/17/2019 Surgeon: Ricco Hannah DO; Location: [facility] Location EGD (ENDO) 03/23/2015 [facility] ESOPHAGOGASTRODUODENOSCOPY 04/13 ulcers ESOPHAGOGASTRODUODENOSCOPY 06/15 ESOPHAGOGASTRODUODENOSCOPY 10/07/2009 mild nonerosive gastritis ESOPHAGOGASTRODUODENOSCOPY N/A 06/22/2015 Surgeon: Arian To MD; Location: [facility] OR [facility] ESOPHAGOGASTRODUODENOSCOPY N/A 02/17/2019 Surgeon: Ricco Hannah DO; Location: [facility] OR Location FLEXIBLE BRONCHOSCOPY 05/24/2015 [facility] 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 HIP HEMIARTHROPLASTY 2001 Right KNEE ARTHROSCOPY Right 01/06/2014 Surgeon: Girish Fountain MD; Location: [facility] OR LOCATION OPEN CARPAL TUNNEL RELEASE Right 07/15/2019 Surgeon: Zia Resendez MD; Location: [facility] Location ME ARTHRS KNE SURG W/MENISCECTOMY MED/LAT W/SHVG 01/06/2014 ME KNEE SCOPE,REMV LOOSE BODY 01/06/2014 TOTAL HIP ARTHROPLASTY REVISION Right 09/18/2017 Surgeon: Sebastian Bunn MD; Location: [facility] Location TUBAL LIGATION 1988 Review of [...] Oneself or Thoughts of Harming Oth ers MEDICATIONS: No outpatient medications have been marked as taking for the 10/28/19 encounter ( Appointment) with Sebastian Doe MD. TELEHEALTH EXAM GENERAL: Juan Tinoco is well developed, well nourished MUSCULOSKELETAL/NEUROLOGIC EXAM: Mental Status: normal attention span, arousal, orientation, language, fluency, a ffect, judgement, knowledge and recall. Radiology Pertinent Films 05/14/19 Exam: MR CERVICAL [...] IMAGES QUALITY: No axial T2 GRE sequence. Electrodiagnostics 02/18/10 EMGNCV 53 year old right handed female was referred for evaluation of bilateral hand nu mbness and tingling that started about 3 months ago. Symptoms are intermittent i n digits 2-5 of both hands. In addition she complains of neck pain that radiates down the arms. She complains of frequent muscle cramps in her hands, more on the right, and occasional cramps in her legs. She reports difficulty with bessemer regulator. PMH of ankylosing spondylitis. Brief examination showed normal strength and no mus grzegorz atrophy. DTRs were 2+. Sensation was reported normal. No cramps or clinical myotonia observed on exam. Abnormal Study. Electrodiagnostic evidence of mild to moderate right [...] 354.0 4. Chronic pain syndrome G89.4 338.4 ASSESSMENT/ PLAN Juan Tinoco is a 53 year old female PMH ankylosing spondylitis (since 2003) presents with neck pain. Recommend patient to continue rheumatology treatment fo r ankylosing spondylitis to slow progression of disease, recommend PCP to increa se gabapentin to 800mg TID if appropriate, and follow up in 8 weeks to evaluate for repeat cervical SHANI. Medications Per PCP: - recommend to increase Gabapentin 800 mg tid - Cyclobenzaprine 5 mg tid prn - Voltaren1 % gel - [place] 1 tablet prn - takes 3-4x/day Follow Up: RTC 8 weeks Mary Lou Daly MDTD@ A total of 15 minutes was spent on the Telephone due to patient unable to obtain video call option with the patient. Mary Lou Daly MD documented in this encounter Plan of Treatment Care Team Description Date Type Specialty Omar Clay, [address] [place] [address] [phone] 11/18/2019 Telemedicine [place] [address] [place] [phone] 11/28/2019 Telemedicine [place] [address] [place] [phone] 01/16/2020 Appointment Radiology Giuliano Gardner, DISH PERSON [address] [place] [address] [phone] 01/16/2020 Appointment Radiology Health Maintenance Due Date [...] Head, Donal Uhr Bipolar BIPOLAR Right: Hip [place] 21b23jo #Uh1-44-28 - S0 head Implanted: Qty: 1 on 09/18/2017 by Sebastian Bunn MD at [facility] 07/07/2021 1023-12 / [id number] / [id number] Cancellous Cubes, Community Tissue BONE Right: Hip [facility] Freeze Dried 30 Cc Tissue #1023-12 - [id number] Services Implanted: Qty: 1 on 09/18/2017 by Sebastian Bunn MD at [facility] 03/08/2018 2018-40 / [id number] / [id number] Dbm Fadi Interiano 10cc Cts #2018-40 BONE Right: Hip [facility] [id number] Tissue Implanted: Qty: 1 on 09/18/2017 by Services Sebastian Bunn MD at [facility] 04/07/2022 1365-28-720 / 0 / [id number] Delta Ceramic Femoral Head 28mm +5 Head Right: Hip Depuy 06/21 Taper Depuy Ref#[id number] Synthes Implanted: Qty: 1 on 09/18/2017 by Sebastian Bunn MD at [facility] 03/29/2022 623-00-44F / 0 / [id number] Insert, Donal Trident 0deg 44mm Liner Right: Hip [place] #[id number] Implanted: Qty: 1 on 09/18/2017 by Sebastian Bunn MD at [facility] 04/24/2022 5260-5-050 / 0 / [id number] Screw Osteolock 3.[address] SCREW Right: Hip [place] Cancellous 50mm [place] Ref#[id number] Implanted: Qty: 2 on 09/18/2017 by Sebastian Bunn MD at [facility] 06/01/2022 5260-5-020 / 0 / [id number] Screw Ostelock 3.[address] SCREW Right: Hip Donal Cancellous 20mm [place] Ref#[id number] Implanted: Qty: 1 on 09/18/2017 by Sebastian Bunn MD at [facility] 06/01/2022 5260-5-016 / 0 / [id number] Screw Osteolock 3.[address] SCREW Right: Hip Donal Cancellous 18mm [place] Ref#[id number] Implanted: Qty: 1 on 09/18/2017 by Sebastian Bunn MD at [facility] 01/02/2022 509-02-60F / 0 / [id number] Shell, [place] Tritanium Revision Shell Right: Hip [place] Acetabular #[id number] - S0 Implanted: Qty: 1 on 09/18/2017 by Sebastian Bunn MD at [facility] documented as of this encounter Results Not on filedocumented in this encounter Visit Diagnoses Diagnosis Chronic pain syndrome - Primary Cervical spondylosis with radiculopathy Cervical spondylosis with myelopathy Ankylosing spondylitis, unspecified sit e of spine documented in this encounter Insurance Type Payer Benefit Subscriber ID Effective Phone Address Plan / Dates Group Medicare Adv O [facility] [id number] 2018- MANAGED MEDICARE HEALTHCARE Present DUAL COMPLETE HMO Medicaid [facility] MEDICAID xxxxxxxxx 2019-P [phone] P O [facility] [id number] [place] [address] documented as of this encounter Advance Directives Patient Skilled Nursing Professional Explanation Type Date Recorded 0 Advance Directives 08/08/2013 8:00 AM and Living Will Power of Stoker Installation Mechanic 08/08/2013 8:00 AM
--- OUTSIDE RECORDS SUMMARY | 2019-12-13 15:38 | XMS REPORT | Summary of Care ---
Author Author [facility] - Health Organization [facility] - Health Address Unknown Phone Unavailable Care Team Providers Care Group Therapist Name Role Phone Ovidio Clarke MD PCP Reason for Visit * Reason Comments LAB Encounter Details Care Team Description Date Type Department Omar Clay, DO [address] [place], [place] [address] Pcp-Lab Vitamin D deficiency 11/19/2019 Law Instructor [facility] Visit CLINICS LAB [facility] [address] [facility] [address]; [address] [place] [address] Allergies Comments Active Allergy Reactions Severity Noted [...] Added automatically from request for jimmy solorio [id number] Cervical spondylosis with radiculopathy 01/01/2019 Overview: Added automatically from request for jimmy solorio [id number] Mixed hyperlipidemia 08/13/2018 Overview: LDL 140 07/17/2018 Left tennis elbow 06/17/2018 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 Overview: R Avulsion fracture of lateral epicondyle of humerus 0 11/14/2017 Painful patella, unspecified laterality 11/05/2017 S/P revision of total hip 09/18/2017 Colon cancer screening 05/24/2017 Overview: Added automatically from request for jimmy solorio [id number] Hematemesis with nausea 05/24/2017 Overview: Added automatically from request for jimmy solorio [id number] Nausea and vomiting, intractability of vomiting not s pecified, unspecified 05/24/2017 vomiting type Overview: Added automatically from request for jimmy solorio [id number] ANJELICA (obstructive sleep apnea) 05/10/2017 Obesity (BMI 30-39.9) 05/01/2017 Microhematuria 02/14/2017 Complex tear of medial meniscus of right knee as curr ent injury, initial 01/18/2017 encounter Overview: Added automatically from request for jimmy solorio [id number] Elevated MCV 07/25/2016 Overview: 103.4 07/22/2016 Muscle [...] lower leg 11/25/2013 Overview: ICD10 Diagnosis Term Staff Readiness Officer Utility Knee crepitus 11/25/2013 Genu valgum, acquired 11/25/2013 Overview: ICD10 Diagnosis Term Staff Readiness Officer Utility Patellofemoral misalignment with pain 11/25/2013 Primary [...] 11/16/2010 Headache 04/08/2010 Overview: ICD10 Diagnosis Term Staff Readiness Officer Utility Nonerosive nonspecific gastritis 04/08/2010 Overview: EGD Dr. Lloyd Glossitis 02/23/2010 Tobacco use disorder 02/23/2010 Menorrhagia 05/19/2009 Vision blurred 05/19/2009 Acute upper respiratory infection 08/14/2008 Overview: ICD10 Diagnosis Term Staff Readiness Officer Utility Acute pharyngitis 08/14/2008 Screening for malignant neoplasm of cervix Overview: ICD10 Diagnosis Term Staff Readiness Officer Utility Breast screening 07/16/2008 Overview: ICD10 Diagnosis Term Staff Readiness Officer Utility Urinary tract infection, site not specified 04/29/20 08 Backache 06/02/2007 Overview: Lower back pain ICD10 Diagnosis Term Staff Readiness Officer Utility Pain in joint 06/02/2007 Overview: ICD10 Diagnosis Term Staff Readiness Officer Utility Cervicalgia 06/02/2007 Myalgia and myositis 06/02/2007 Overview: Bilateral trapezius pain ICD10 Diagnosis Term Staff Readiness Officer Utility Absence of menstruation 04/25/2007 Anemia 03/25/2007 Overview: ICD10 Diagnosis Term Staff Readiness Officer Utility Helicobacter pylori infection 06/11/2006 Overview: ICD10 Diagnosis Term Staff Readiness Officer Utility Acute peptic ulcer 06/11/2006 Overview: ICD10 Diagnosis Term Staff Readiness Officer Utility Abdominal pain 04/25/2006 Overview: ICD10 Diagnosis Term Staff Readiness Officer Utility Ankylosing spondylitis 04/25/2006 Vaginitis and vulvovaginitis 04/25/2006 Overview: ICD10 Diagnosis Term Staff Readiness Officer Utility Other, mixed, or unspecified nondependent drug [...] eatures 11/30/2005 02/11/2018 Overview: ICD10 Diagnosis Term Staff Readiness Officer Utility documented as of this encounter (statuses [...] Date [place] [address] [place] [address] 11/28/2019 Telemedicine Family Medicine Visit Trey Vega MD [address] [place] [phone] 12/25/2019 Office Visit Dermatology Omar Clay, DO [address] [place] [address] [phone] 2Jennifer Adult Infusion Nurse 01/13/2020 Nurse Visit [place]fusion [place] [address] [place] [address] 01/16/2020 Appointment Radiology Giuliano Gardner, PHOTO TECHNICIAN [address] [place] [address] [phone] 01/16/2020 Appointment Radiology Omar Clay, DO [address] [place] [address] [phone] 02/24/2020 Office Visit Rheumatology Date/Time Name Type Priority Associated Diag noses 11/19/2019 9:28 AM CDT VITAMIN D, 25-[facility] LAB Routine Vitamin D [...] Donal Uhr Bipolar BIPOLAR Right: Hip Donal 51q07uh #Uh1-44-28 - S0 head Implanted: Qty: 1 on 09/18/2017 by Sebastian Bunn MD at [facility] 07/07/2021 1023-12 / [id number] / [id number] Cancellous Cubes, Community Tissue BONE Right: Hip [facility] Freeze Dried 30 Cc Tissue #1023-12 - [id number] Services Implanted: Qty: 1 on 09/18/2017 by Sebastian Bunn MD at [facility] 03/08/2018 2018-40 / [id number] / [id number] Dbm Putty Maxxeus 10cc Cts #2017-40 BONE Right: Hip [facility] - [id number] Tissue Implanted: Qty: 1 on 09/18/2017 by Services Sebastian Bunn MD at [facility] 04/07/2022 1365-28-720 / 0 / [id number] Delta Ceramic Femoral Head 28mm +5 Head Right: Hip Depuy 06/21 Taper Depuy Ref#[id number] Synthes Implanted: Qty: 1 on 09/18/2017 by Sebastian Bunn MD at [facility] 03/29/2022 623-00-44F / 0 / [id number] Insert, Donal Trident 0deg 44mm Liner Right: Hip Donal #623-00-44f Implanted: Qty: 1 on 09/18/2017 by Sebastian Bunn MD at [facility] 04/24/2022 5260-5-050 / 0 / [id number] Screw Osteolock 3.[address] SCREW Right: Hip Donal Cancellous 50mm [place] Ref#[id number] Implanted: Qty: 2 on 09/18/2017 by Sebastian Bunn MD at [facility] 06/01/2022 5260-5-020 / 0 / [id number] Screw Ostelock 3.[address] SCREW Right: Hip Donal Cancellous 20mm [place] Ref#[id number] Implanted: Qty: 1 on 09/18/2017 by Sebastian Bunn MD at [facility] 06/01/2022 5260-5-016 / 0 / [id number] Screw Osteolock 3.[address] SCREW Right: Hip [place] Cancellous 18mm Donal Ref#[id number] Implanted: Qty: 1 on 09/18/2017 by Sebastian Bunn MD at [facility] 01/02/2022 509-02-60F / 0 / [id number] Shell, [place] Tritanium Revision Shell Right: Hip Donal Acetabular #509-02-60f - S0 Implanted: Qty: 1 on 09/18/2017 by Sebastian Bunn MD at [facility] documented as of this encounter Results Not on filedocumented in this encounter Visit Diagnoses Diagnosis Vitamin D deficiency Unspecified vitamin D deficiency documented in this encounter Insurance Type Payer Benefit Subscriber ID Effective Phone Address Plan / Dates Group Medicare Adv HMO [facility] [id number] 2018- MANAGED MEDICARE HEALTHCARE Present DUAL COMPLETE HMO Medicaid [facility] MEDICAID xxxxxxxxx 2019-P [phone] P O [facility] [id number] [place] [address] ([place]) [place] [address] documented as of this encounter Advance Directives Patient Scout Leaser Explanation Type Date Recorded 0 Advance Directives 08/08/2013 8:00 AM and Living Will Power of Petrographer 08/08/2013 8:00 AM
--- OUTSIDE RECORDS SUMMARY | 2019-12-13 15:38 | XMS REPORT | Summary of Care ---
Author Author [facility] - Health Organization [facility] - Health Address Unknown Phone Unavailable Care Team Providers Care Biometrics Instructor Name Role Phone Ovidio Clarke MD PCP Reason for Visit * Reason Comments Follow-up Erroneous encounter-disregard Encounter Details Care Team Description Date Type Department Omar Clay, DO [address] [place], [place] [address] ERRONEOUS ENCOUNTER--DISREGARD (Primary Dx) 11/13/2019 Telemedicine [facility] Health Interna l Visit Medicine Rheumatology-[facility] [address], [address] [place] [address] Allergies Comments Active Allergy Reactions [...] Added automatically from request for jimmy solorio [id number] Cervical spondylosis with radiculopathy 01/01/2019 Overview: Added automatically from request for jimmy solorio [id number] Mixed hyperlipidemia 08/13/2018 Overview: LDL 140 07/17/2018 Left tennis elbow 06/17/2018 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 Overview: R Avulsion fracture of lateral epicondyle of humerus 0 11/14/2017 Painful patella, unspecified laterality 11/05/2017 S/P revision of total hip 09/18/2017 Colon cancer screening 05/24/2017 Overview: Added automatically from request for jimmy solorio [id number] Hematemesis with nausea 05/24/2017 Overview: Added automatically from request for jimmy solorio [id number] Nausea and vomiting, intractability of vomiting not s pecified, unspecified 05/24/2017 vomiting type Overview: Added automatically from request for jimmy solorio [id number] ANJELICA (obstructive sleep apnea) 05/10/2017 Obesity (BMI 30-39.9) 05/01/2017 Microhematuria 02/14/2017 Complex tear of medial meniscus of right knee as curr ent injury, initial 01/18/2017 encounter Overview: Added automatically from request for jimmy solorio [id number] Elevated MCV 07/25/2016 Overview: 103.4 07/22/2016 Muscle [...] lobe nodular opacitiy on chest xray at [facility] 05/22/2015 Hiatus hernia syndrome 04/09/2015 [...] lower leg 11/25/2013 Overview: ICD10 Diagnosis Term Tipple Oiler Utility Knee crepitus 11/25/2013 Genu valgum, acquired 11/25/2013 Overview: ICD10 Diagnosis Term Tipple Oiler Utility Patellofemoral misalignment with pain 11/25/2013 Primary [...] 11/16/2010 Headache 04/08/2010 Overview: ICD10 Diagnosis Term Tipple Oiler Utility Nonerosive nonspecific gastritis 04/08/2010 Overview: EGD Dr. Lloyd Glossitis 02/23/2010 Tobacco use disorder 02/23/2010 Menorrhagia 05/19/2009 Vision blurred 05/19/2009 Acute upper respiratory infection 08/14/2008 Overview: ICD10 Diagnosis Term Tipple Oiler Utility Acute pharyngitis 08/14/2008 Screening for malignant neoplasm of cervix 9 Overview: ICD10 Diagnosis Term Tipple Oiler Utility Breast screening 07/16/2008 Overview: ICD10 Diagnosis Term Tipple Oiler Utility Urinary tract infection, site not specified 04/29/20 08 Backache 06/02/2007 Overview: Lower back pain ICD10 Diagnosis Term Tipple Oiler Utility Pain in joint 06/02/2007 Overview: ICD10 Diagnosis Term Tipple Oiler Utility Cervicalgia 06/02/2007 Myalgia and myositis 06/02/2007 Overview: Bilateral trapezius pain ICD10 Diagnosis Term Tipple Oiler Utility Absence of menstruation 04/25/2007 Anemia 03/25/2007 Overview: ICD10 Diagnosis Term Tipple Oiler Utility Helicobacter pylori infection 06/11/2006 Overview: ICD10 Diagnosis Term Tipple Oiler Utility Acute peptic ulcer 06/11/2006 Overview: ICD10 Diagnosis Term Tipple Oiler Utility Abdominal pain 04/25/2006 Overview: ICD10 Diagnosis Term Tipple Oiler Utility Ankylosing spondylitis 04/25/2006 Vaginitis and vulvovaginitis 04/25/2006 Overview: ICD10 Diagnosis Term Tipple Oiler Utility Other, mixed, or unspecified nondependent drug [...] eatures 11/30/2005 02/11/2018 Overview: ICD10 Diagnosis Term Tipple Oiler Utility documented as of this encounter (statuses [...] filedocumented in this encounter Progress Notes * Omar Clay DO - 11/18/2019 2:00 PM CDT I spoke to her via [employer]. She wanted to show me a rash. Also very bad connection after multiple attempts. We agreed to void this visit and have her come in tomorrow at 8:20 for a FTF at the PCP. This encounter was opened in error. Please disregard. documented in this encounter Plan of Treatment Care Team Description Date [place] [address] [place] [address] 11/28/2019 Telemedicine Family Medicine Visit Omar Clay DO [address] [place], [place] [address] 2, Jennifer Adult Infusion Nurse 01/13/2020 Nurse Visit [place] [address] [place] [address] 01/16/2020 Appointment Radiology Giuliano Gardner, ALVIN [address] [place] [address] [phone] 01/16/2020 Appointment Radiology Health Maintenance Due Date [...] / 0 / [id number] Bipolar Head, [place] Uhr Bipolar BIPOLAR Right: Hip Donal 34v82ia #Uh1-44-28 - S0 head Implanted: Qty: 1 on 09/18/2017 by Sebastian Bunn MD at [facility] 07/07/2021 1023-12 / [id number] / [id number] Cancellous Cubes, Community Tissue BONE Right: Hip [facility] Services Freeze Dried 30 Cc Tissue #1023-12 - [id number] Services Implanted: Qty: 1 on 09/18/2017 by Sebastian Bunn MD at [facility] 03/08/20182017-40 / [id number] / [id number] Dbm Putty Maxxeus 10cc Cts #2017- BONE Right: Hip [facility] - [id number] Tissue Implanted: Qty: 1 on 09/18/2017 by Services Sebastian Bunn MD at [facility] 04/07/2022 1365-28-720 / 0 / [id number] Delta Ceramic Femoral Head 28mm +5 Head Right: Hip Depuy 06/21 Taper Depuy Ref#1365-28-720 Synthes Implanted: Qty: 1 on 09/18/2017 by Sebastian Bunn MD at [facility] 03/29/2022 623-00-44F / 0 / [id number] Insert, [place] Trident 0deg 44mm Liner Right: Hip [place] #623-00-44f Implanted: Qty: 1 on 09/18/2017 by Sebastian Bunn MD at [facility] 04/24/2022 5260-5-050 / 0 / [id number] Screw Osteolock 3.[address] SCREW Right: Hip Donal Cancellous 50mm [place] Ref#[id number] Implanted: Qty: 2 on 09/18/2017 by Sebastian Bunn MD at [facility] 06/01/2022 5260-5-020 / 0 / [id number] Screw Ostelock 3.[address] SCREW Right: Hip [place] Cancellous 20mm Donal Ref#5260-5-020 Implanted: Qty: 1 on 09/18/2017 by Sebastian Bunn MD at [facility] 06/01/2022 5260-5-016 / 0 / [id number] Screw Osteolock 3.[address] SCREW Right: Hip Donal Cancellous 18mm [place] Ref#[id number] Implanted: Qty: 1 on 09/18/2017 by Sebastian Bunn MD at [facility] 01/02/2022 509-02-60F / 0 / [id number] Shell, Donal Tritanium Revision Shell Right: Hip Donal Acetabular #509-02-60f - S0 Implanted: Qty: 1 on 09/18/2017 by Sebastian Bunn MD at [facility] documented as of this encounter Results Not on filedocumented in this encounter Visit Diagnoses Diagnosis ERRONEOUS ENCOUNTER--DISREGARD - Primar y documented in this encounter Insurance Type Payer Benefit Subscriber ID Effective Phone Address Plan / Dates Group Medicare Adv O [facility] [id number] 2018- MANAGED MEDICARE HEALTHCARE Present DUAL COMPLETE HMO Medicaid [facility] MEDICAID xxxxxxxxx 2019-P [phone] P O [facility] resent [id number] [place] [address] documented as of this encounter Advance Directives 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
--- OUTSIDE RECORDS SUMMARY | 2019-12-13 15:38 | XMS REPORT | Summary of Care ---
Author Author [facility] - Health Organization [facility] - Health Address Unknown Phone Unavailable Care Team Providers Care Client Services Coordinator Name Role Phone Ovidio Clarke MD PCP Reason for Visit * Reason Comments Appointment Encounter Details Care Team Description Date Type Department Sebastian Doe MD [id number] [place] [address] Appointment 10/31/2019 Telephone [facility] Health Anesthe salma [facility] [address] [place] [address] Allergies Comments Active Allergy Reactions Severity Noted Date Aspirin Hives 03/21/2012 Sulfa (Sulfonamide Hives 11/29/2005 Antibiotics) documented as of this encounter (statuses as of 10/31/2019) Medications End Date Status Medication Sig Dispensed [...] as of this encounter (statuses as of 10/31/2019) Active Problems Problem Noted Date Acute vaginitis 10/08/2019 Essential hypertension 03/19/2019 Carpal tunnel syndrome on right 03/19/2019 Overview: EMG 02/18/2019 Special screening for malignant neoplasms, colon Overview: Added automatically from request for jimmy solorio [id number] Cervical spondylosis with radiculopathy 01/01/2019 Overview: Added automatically from request for jimmy solorio [id number] Mixed hyperlipidemia 08/13/2018 Overview: LDL 140 07/17/2018 Left tennis elbow 06/17/2018 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 Overview: R Avulsion fracture of lateral epicondyle of humerus 0 11/14/2017 Painful patella, unspecified laterality 11/05/2017 S/P revision of total hip 09/18/2017 Colon cancer screening 05/24/2017 Overview: Added automatically from request for jimmy solorio [id number] Hematemesis with nausea 05/24/2017 Overview: Added automatically from request for jimmy solorio [id number] Nausea and vomiting, intractability of vomiting not s pecified, unspecified 05/24/2017 vomiting type Overview: Added automatically from request for jimmy solorio [id number] ANJELICA (obstructive sleep apnea) 05/10/2017 Obesity (BMI 30-39.9) 05/01/2017 Microhematuria 02/14/2017 Complex tear of medial meniscus of right knee as curr ent injury, initial 01/18/2017 encounter Overview: Added automatically from request for jimmy solorio [id number] Elevated MCV 07/25/2016 Overview: 103.4 07/22/2016 Muscle [...] lobe nodular opacitiy on chest xray at [facility] 05/22/2015 Hiatus hernia syndrome 04/09/2015 Overview: EGD 03/23/2015 [facility] [place] [place] screening mammogram 01/06/2015 Immunization deficiency 10/09/2014 Overview: [...] lower leg 11/25/2013 Overview: ICD10 Diagnosis Term Neurosurgery Spine Physician Utility Knee crepitus 11/25/2013 Genu valgum, acquired 11/25/2013 Overview: ICD10 Diagnosis Term Neurosurgery Spine Physician Utility Patellofemoral misalignment with pain 11/25/2013 Primary [...] 11/16/2010 Headache 04/08/2010 Overview: ICD10 Diagnosis Term Neurosurgery Spine Physician Utility Nonerosive nonspecific gastritis 04/08/2010 Overview: EGD Dr. Lloyd Glossitis 02/23/2010 Tobacco use disorder 02/23/2010 Menorrhagia 05/19/2009 Vision blurred 05/19/2009 Acute upper respiratory infection 08/14/2008 Overview: ICD10 Diagnosis Term Neurosurgery Spine Physician Utility Acute pharyngitis 08/14/2008 Screening for malignant neoplasm of cervix Overview: ICD10 Diagnosis Term Neurosurgery Spine Physician Utility Breast screening 07/16/2008 Overview: ICD10 Diagnosis Term Neurosurgery Spine Physician Utility Urinary tract infection, site not specified 04/29/20 08 Backache 06/02/2007 Overview: Lower back pain ICD10 Diagnosis Term Neurosurgery Spine Physician Utility Pain in joint 06/02/2007 Overview: ICD10 Diagnosis Term Neurosurgery Spine Physician Utility Cervicalgia 06/02/2007 Myalgia and myositis 06/02/2007 Overview: Bilateral trapezius pain ICD10 Diagnosis Term Neurosurgery Spine Physician Utility Absence of menstruation 04/25/2007 Anemia 03/25/2007 Overview: ICD10 Diagnosis Term Neurosurgery Spine Physician Utility Helicobacter pylori infection 06/11/2006 Overview: ICD10 Diagnosis Term Neurosurgery Spine Physician Utility Acute peptic ulcer 06/11/2006 Overview: ICD10 Diagnosis Term Neurosurgery Spine Physician Utility Abdominal pain 04/25/2006 Overview: ICD10 Diagnosis Term Neurosurgery Spine Physician Utility Ankylosing spondylitis 04/25/2006 Vaginitis and vulvovaginitis 04/25/2006 Overview: ICD10 Diagnosis Term Neurosurgery Spine Physician Utility Other, mixed, or unspecified nondependent drug abuse, continuous 11/30/2005 documented as of this encounter (statuses as of 10/31/2019) Resolved Problems Problem Noted Date Resolved Date Arm laceration, right, subsequent encounter 04/13/2014 04/13/2014 Syncope and collapse 02/27/2007 06/28/2014 Bipolar I disorder, most recent episode (or current) unspec ified 01/03/2007 01/23/2018 Overview: Dr. 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 11/30/2005 02/11/2018 Overview: ICD10 Diagnosis Term Neurosurgery Spine Physician Utility documented as of this encounter (statuses as of 10/31/2019) Immunizations Name Administration Dates Next Due Hepatitis [...] Description Date Type Specialty Omar Clay, [address] [place] [address] [phone] 11/18/2019 Telemedicine [place] [address] [place] [phone] 11/28/2019 Telemedicine Family [place] [address] [place] [address] 01/16/2020 Appointment Radiology Giuliano Gardner, IT SALES EXECUTIVE [address] [place] [address] 01/16/2020 Appointment Radiology Health Maintenance Due Date Last Done Comments Breast Cancer Screening 06/14/2019 06/14/2018, (MAMMOGRAM) PAP SMEAR 11/04/2019 11/03/2016 (Previou sly completed), 07/16/2008, 05/26/2005, Additional history exists Zoster Recombinant 06/17/2020 Postponed from 11/06 Vaccine (SHINGRIX) (1 of (Insurance / Financial) 2) DTaP,Tdap,and Td Vaccines 08/24/2024 08/24/2014, 04/01/2014 (2 - Td) COLONOSCOPY 02/17/2029 02/17/2019, 12/15/2 015 HEPATITIS C (HCV) SCREEN Completed 11/17/2015, 1 07/28/2012, 10/11/2004, Additional history exists PNEUMOCOCCAL 0-64 YEARS Completed 02/19/2018, COMBINED SERIES INFLUENZA VACCINE Completed 06/19/2019, 05/01/ 018, 05/10/2017, Additional history exists documented as [...] Donal Uhr Bipolar BIPOLAR Right: Hip Donal 62o69jy #Uh1-44-28 - S0 head Implanted: Qty: 1 on 09/18/2017 by Sebastian Bunn MD at [facility] 07/07/2021 1023-12 / [id number] / [id number] Cancellous Cubes, [facility] Tissue BONE Right: [facility] Services Freeze Dried 30 Cc Tissue #1023-12 - [id number] Services Implanted: Qty: 1 on 09/18/2017 by Sebastian Bunn MD at [facility] 03/08/2018 2018-40 / [id number] / [id number] Dbm Putty Maxxeus 10cc Cts #2018-40 BONE Right: Hip [facility] - [id number] Tissue Implanted: Qty: 1 on 09/18/2017 by Services Sebastian Bunn MD at [facility] 04/07/2022 1365-28-720 / 0 / [id number] Delta Ceramic Femoral Head 28mm +5 Head Right: Hip Depuy 06/21 Taper Depuy Ref#1365-28-720 Synthes Implanted: Qty: 1 on 09/18/2017 by Sebastian Bunn MD at [facility] 03/29/2022 623-00-44F / 0 / [id number] Insert, [place] Trident 0deg 44mm Liner Right: Hip Donal #623-00-44f Implanted: Qty: 1 on 09/18/2017 by Sebastian Bunn MD at [facility] 04/24/2022 5260-5-050 / 0 / [id number] Screw Osteolock 3.[address] SCREW Right: Hip Donal Cancellous 50mm [place] Ref#5260-5-050 Implanted: Qty: 2 on 09/18/2017 by Sebastian Bunn MD at [facility] 06/01/2022 5260-5-020 / 0 / [id number] Screw Ostelock 3.[address] SCREW Right: Hip Donal Cancellous 20mm Donal Ref#5260-5-020 Implanted: Qty: 1 on 09/18/2017 by Sebastian Bunn MD at [facility] 06/01/2022 5260-5-016 / 0 / [id number] Screw Osteolock 3.[address] SCREW Right: Hip [place] Cancellous 18mm [place] Ref#5260-5-016 Implanted: Qty: 1 on 09/18/2017 by Sebastian Bunn MD at [facility] 01/02/2022 509-02-60F / 0 / [id number] Shell, [place] Tritanium Revision Shell Right: Hip Donal Acetabular #509-02-60f - S0 Implanted: Qty: 1 on 09/18/2017 by Sebastian Bunn MD at [facility] documented as of this encounter Results Not on filedocumented in this encounter Insurance Type Payer Benefit Subscriber ID Effective Phone Address Plan / Dates Group Medicare Adv O [facility] [id number] 2018- MANAGED MEDICARE HEALTHCARE Present DUAL COMPLETE HMO [facility] [id number] 2018- [address] SOL[employer] H Present [address] [place] [address] Medicaid [place] MED[place] xxxxxxxxx 2019-P [phone] [address] [place] resent [id number] [facility] [place] [address] documented as of this encounter Advance Directives Patient Underwriting Support Specialist Explanation Type Date Recorded 0 Advance Directives 08/08/2013 8:00 AM and Living Will Power of Quality Specialist 08/08/2013 8:00 AM
--- OUTSIDE RECORDS SUMMARY | 2019-12-13 15:38 | XMS REPORT | Summary of Care ---
Author Author [facility] - Health Organization [facility] - Health Address Unknown Phone Unavailable Care Team Providers Care Sr. Logistics Analyst Name Role Phone Ovidio Clarke MD PCP Reason for Referral * (Routine) Referred By Contact Referred To Contact Status Reason Specialty Diagnoses / Procedures Omar Clay, DO [address] [place] [address] [phone] New Request Dermatology Diagnoses Folliculitis P rocedures CONSULT DERMATOLOGY * Radiology Services (Routine) Referred By Contact Referred To Contact Status Reason Specialty Diagnoses / Procedures Omar Clay, DO [address] [place] [address] [phone] New Request Diagnostic Diagnoses Radiology Ankylosing spondylitis of multiple sites in spine P rocedures XR HAND 3+ VW BILATERAL * (Routine) Referred By Contact Referred To Contact Status Reason Specialty Diagnoses / Procedures Omar Clay, DO [address] [place] [address]349 Emg/Ncv Procedures-Jsa 8.144 Ovidio Karimi [address] [address] New Request Electroneurodiag Diagnoses nostic Ankylosing spondylitis of multiple sites in spine P rocedures EMGNCV Reason for Visit * Reason Comments Follow-up Ankylosing spindylitis of m ultiple sites in spine Encounter Details Care Team Description Date Type Department Omar Clay, DO [address] [place] [address], [place] [address] [phone] Ankylosing spondylitis of multiple sites in spine (Primary Dx); Bilateral carpal tunnel syndrome; Chronic thumb pain, bilateral; Folliculitis 11/19/2019 Office Visit [facility] Health Interna l Medicine [facility] [address]asha [address], [address] [place] [address] Allergies Comments Active Allergy Reactions [...] colon Overview: Added automatically from request for [email or web address] [id number] Cervical spondylosis with radiculopathy 01/01/2019 Overview: Added automatically from request for [email or web address] [id number] Mixed hyperlipidemia 08/13/2018 Overview: LDL 140 07/17/2018 Left tennis elbow 06/17/2018 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 Overview: R Avulsion fracture of lateral epicondyle of humerus 0 11/14/2017 Painful patella, unspecified laterality 11/05/2017 S/P revision of total hip 09/18/2017 Colon cancer screening 05/24/2017 Overview: Added automatically from request for [email or web address] [id number] Hematemesis with nausea 05/24/2017 Overview: Added automatically from request for [email or web address] swiftQueue [id number] Nausea and vomiting, intractability of vomiting not s pecified, unspecified 05/24/2017 vomiting type Overview: Added automatically from request for jimmy solorio [id number] ANJELICA (obstructive sleep apnea) 05/10/2017 Obesity (BMI 30-39.9) 05/01/2017 Microhematuria 02/14/2017 Complex tear of medial meniscus of right knee as curr ent injury, initial 01/18/2017 encounter Overview: Added automatically from request for jimmy solorio [id number] Elevated MCV 07/25/2016 Overview: 103.4 07/22/2016 Muscle [...] lower leg 11/25/2013 Overview: 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[employer] Pain in joint 06/02/2007 Overview: ICD10 Diagnosis 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[employer] Cervicalgia 06/02/2007 Myalgia and myositis 06/02/2007 Overview: Bilateral trapezius pain ICD10 Diagnosis 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[employer] Absence of menstruation 04/25/2007 Anemia 03/25/2007 Overview: ICD10 Diagnosis 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[employer] Helicobacter pylori infection 06/11/2006 Overview: ICD10 Diagnosis 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 Howeve r, she was seen at [facility] for cough and perhaps some [...] MTX be re-started. Dr. Han [email or web address] and she has been compliant with [facility] brittney. We r/s MTX/remicade. She saw opthalmology and had iritis. Most likely due to interruption in Remicad e. Saw Dr. Vallejo. Injected eye. She started seeing Dr. Good (oph outside [facility]) and he recommended increasing Remicade. The [...] get note. She said she saw his compliance assistant) She has diffuse pain, and is [...] 02/11/2012 Hiatus hernia syndrome 04/09/2015 EGD 03/23/2015 [facility] Immunization deficiency 10/09/2014 She is NOT immune [...] N/A 06/22/2015 Surgeon: Arian To MD; Location: [facility] OR LOCATION COLONOSCOPY N/A 02/17/2019 Surgeon: Ricco Hannah DO; Location: [facility] Location EGD (ENDO) 03/23/2015 [facility] ESOPHAGOGASTRODUODENOSCOPY 04/13 ulcers ESOPHAGOGASTRODUODENOSCOPY 06/15 ESOPHAGOGASTRODUODENOSCOPY 10/07/2009 mild nonerosive gastritis ESOPHAGOGASTRODUODENOSCOPY N/A 06/22/2015 Surgeon: Arian To MD; Location: [facility] OR LOCATION ESOPHAGOGASTRODUODENOSCOPY N/A 02/17/2019 Surgeon: Ricco Hannah DO; Location: [facility] OR Location FLEXIBLE BRONCHOSCOPY 05/24/2015 Mag[facility] HIP HEMIARTHROPLASTY 2001 Right KNEE ARTHROSCOPY Right 01/06/2014 Surgeon: Girish Fountain MD; Location: [facility] OR [place] OPEN CARPAL TUNNEL RELEASE Right 07/15/2019 Surgeon: Zia Resendez MD; Location: [facility] OR Location WI ARTHRS KNE SURG W/MENISCECTOMY MED/LAT W/SHVG 01/06/2014 [place] KNEE SCOPE,REMV LOOSE BODY 01/06/2014 TOTAL HIP ARTHROPLASTY REVISION Right 09/18/2017 Surgeon: Sebastian Bunn MD; Location: [facility] Location [...] UA 2+ blood, 6 RBC and 3 CRA. 01/06/15 CRP 1.1. ESR 29. MCV 98.8. [...] WNL. UA 2 + bl. 13 R. 3+CRA. 05/15/17 CBC MCV 102.1 CRP 1.8. CMP [...] staff to have his last (o r compliance assistant's last) note sent. (Please ask Dr. [...] Hogan for cough and possible hemoptysis at [facility]. CT not very impressive. f/u [...] SEDIMENTATION RATE C-REACTIVE PROTEIN COMP. 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 [place] [address] [place] [phone] 11/28/2019 Telemedicine Family Medicine Visit Trey Vega MD [address] [place] [phone] 12/25/2019 Office Visit Dermatology Omar Clay, DO [address] [place] [address] [phone], Jennifer Adult Infusion Nurse 01/13/2020 Nurse Visit [place] [address] [place] [address] 01/16/2020 Appointment Radiology Giuliano Gardner, PLASTER BLOCK LAYER [address] [place] [address] [phone] 01/16/2020 Appointment Radiology ObedOmar, DO [address] [place] [address] [phone] 02/24/2020 Office Visit Rheumatology Order Schedule Name [...] PANEL LAB Routine Ankylosi ng spondylitis of (48452) multiple sites in spine Expected: 11/19/2019, Expires: [...] UH1-44-28 / 0 / [id number] Bipolar Head, Morrison Uhr Bipolar BIPOLAR Right: Hip Morrison 57i84ci #Uh1-44-28 - S0 head Implanted: Qty: 1 on 09/18/2017 by Sebastian Bunn MD at [facility] 07/07/2021 1023-12 / [id number] / [id number] Cancellous Cubes, Community Tissue BONE Right: Hip [facility] Services Freeze Dried 30 Cc Tissue #1023-12 - [id number] Services Implanted: Qty: 1 on 09/18/2017 by Sebastian Bunn MD at [facility] 03/08/20182017-40 / [id number] / [id number] Dbm Putty Maxxeus 10cc Cts #2017- BONE Right: Hip [facility] [id number] Tissue Implanted: Qty: 1 on 09/18/2017 by Services Sebastian Bunn MD at [facility] 04/07/2022 1365-28-720 / 0 / [id number] Delta Ceramic Femoral Head 28mm +5 Head Right: Hip Depuy 06/21 Taper Depuy Ref#[id number] Synthes Implanted: Qty: 1 on 09/18/2017 by Sebastian Bunn MD at [facility] 03/29/2022 623-00-44F / 0 / [id number] Insert, Donal Trident 0deg 44mm Liner Right: Hip Donal #[id number] Implanted: Qty: 1 on 09/18/2017 by Sebastian Bunn MD at [facility] 04/24/2022 5260-5-050 / 0 / [id number] Screw Osteolock 3.[address] SCREW Right: Hip Morrison Cancellous 50mm Morrison Ref#[id number] Implanted: Qty: 2 on 09/18/2017 by Sebastian Bunn MD at [facility] 06/01/2022 5260-5-020 / 0 / [id number] Screw Ostelock 3.[address] SCREW Right: Hip Donal Cancellous 20mm Morrison Ref#[id number] Implanted: Qty: 1 on 09/18/2017 by Sebastian Bunn MD at [facility] 06/01/2022 5260-5-016 / 0 / [id number] Screw Osteolock 3.[address] SCREW Right: Hip Morrison Cancellous 18mm Donal Ref#[id number] Implanted: Qty: 1 on 09/18/2017 by Sebastian Bunn MD at [facility] 01/02/2022 509-02-60F / 0 / [id number] Shell, Donal Tritanium Revision Shell Right: Hip Morrison Acetabular #[id number] - S0 Implanted: Qty: 1 on 09/18/2017 by Sebastian Bunn MD at [facility] documented as of this encounter Results [...] Plan / Dates Group Medicare Adv HMO [facility] [id number] 2018- MANAGED MEDICARE HEALTHCARE Present DUAL COMPLETE HMO Medicaid [facility] MEDICAID xxxxxxxxx 2019-P [phone] [address] [facility] [id number] [place] [address] ([place]) [place] [address] documented as of this encounter Advance Directives Patient Shirt Folder Explanation Type Date Recorded 0 Advance Directives 08/08/2013 8:00 AM and Living Will Power of Cable Stretcher And Tester 08/08/2013 8:00 AM
--- OUTSIDE RECORDS SUMMARY | 2019-12-13 15:39 | XMS REPORT | Summary of Care ---
Author Author [facility] - Health Organization [facility] - Health Address Unknown Phone Unavailable Care Team Providers Care Procurement Director Name Role Phone Ovidio Clarke MD PCP Reason for Referral * Radiology Services (Routine) Referred By Contact Referred To Contact Status Reason Specialty Diagnoses / [place] [address] [place] [address] New Request Diagnostic Diagnoses Radiology Encounter for screening mammogram for malignant neoplasm of breast P rocedures BI SCREENING MAMMOGRAM BILATERAL Reason for Visit * Reason Comments Hypertension Encounter Details Care Team Description Date [place] [address] [place] [address] Tobacco use disorder (Primary Dx); Cervicalgia; Myofascial pain; Ankylosing spondylitis, unspecified site of spine; Schizoaffective disorder, depressive type; Ankylosing spondylitis of multiple sites in spine; Painful patella, unspecified laterality; Primary localized osteoarthrosis, lower leg, unspecified laterality; Muscle weakness of lower extremity; Effusion of lower leg joint; Knee crepitus, unspecified laterality; Patellofemoral instability of right knee with pain; Mycobacterium avium complex; Encounter for screening mammogram for malignant neoplasm of breast 11/28/[address] [facility] [address] [place] [address] Allergies Comments Active Allergy Reactions Severity Noted Date Aspirin Hives 03/21/2012 Sulfa (Sulfonamide Hives 11/29/2005 Antibiotics) documented as of this encounter (statuses as of 11/28/2019) Medications End Date Status Medication Sig Dispensed Refills Start Date Active VENTOLIN HFA 90 INHALE 2 5 [...] type for up to 12 doses. Active foLIC acid 1 mg Take [...] by mouth 0 Essential hypertension daily. Active metroNIDAZOLE 500 mg TK 1 [...] capsuleIndications: mouth weekly. Postmenopausal bone loss Active zolpidem (AMBIEN) 10 mg Take 1 tablet 30 tablet 2 tabletIndications: by mouth at 0 Insomnia, unspecified bedtime as type needed for Insomnia. Active gabapentin 600 mg Take 2 90 tablet 6 11/28/19 2 tabletIndications: tablets by 0 Cervicalgia, Myofascial mouth 2 (two) pain times daily. Active cyclobenzaprine 5 mg 2 po bid 120 tablet 2 11/27 tabletIndications: 0 Ankylosing spondylitis, unspecified site of spine Active ziprasidone 20 mg Take 1 60 capsule 2 11/28/19 2 capsuleIndications: capsule by 0 Schizoaffective disorder, mouth 2 (two) depressive type times daily with meals. Active rifAMPin 300 mg 2 tabs 3 x 0 capsuleIndications: weekly 0 Mycobacterium avium complex Active ethambutol 400 mg 3 tabs three 0 tabletIndications: times a week 0 Mycobacterium avium complex Active azithromycin 250 mg Take 1 tablet 0 tabletIndications: by mouth. 0 Mycobacterium avium complex Active methotrexate 2.5 mg Take by mouth 60 tablet 0 11/07 tabletIndications: TAKE 5 0 Ankylosing spondylitis of TABLETS BY multiple sites in spine MOUTH 1 TIME WEEKLY Active Diclofenac Sodium 1 % Apply 2 [...] Primary localized osteoarthrosis, lower leg, unspecified laterality 11/28/2019 Discontinued (Reorder) azithromycin 250 mg Take 250 mg 0 tablet by mouth. 11/28/2019 Discontinued (Reorder) CYCLOBENZAPRINE 5 mg TAKE 1 TABLET 30 tablet 0 tabletIndications: BY MOUTH 9 Ankylosing spondylitis, THREE TIMES unspecified site of spine DAILY 11/28/2019 Discontinued (Reorder) rifAMPin 300 mg capsule 2 tabs 3 x 0 weekly 9 11/28/2019 Discontinued (Reorder) ethambutol 400 mg tablet 3 tabs three 0 06/19 times a week 9 11/28/2019 Discontinued LORazepam 1 mg Take one 6 tablet 0 tabletIndications: tablet by 0 Anxiety mouth daily as needed for anxiety 11/28/2019 Discontinued (Reorder) gabapentin 600 mg Take 1 tablet 90 tablet 6 tabletIndications: by mouth 3 0 Cervicalgia, Myofascial (three) times pain daily. 11/28/2019 Discontinued (Reorder) HYDROcodone-acetaminophen Take 1 tablet 120 tablet 0 10-325 mg by mouth 0 tabletIndications: every 6 (six) Ankylosing spondylitis, hours as unspecified site of needed for spine, Painful patella, Pain (scale unspecified laterality, 4-6). Primary localized osteoarthrosis, lower leg, unspecified laterality 11/28/2019 Discontinued (Reorder) ziprasidone 20 mg Take 1 60 capsule 2 10/23/19 2 capsuleIndications: capsule by 0 Schizoaffective disorder, mouth 2 (two) depressive type times daily with meals. 11/28/2019 Discontinued (Reorder) methotrexate 2.5 mg Take by mouth 60 tablet 0 11/06 tabletIndications: TAKE 5 0 Ankylosing spondylitis of TABLETS BY multiple sites in spine MOUTH 1 TIME WEEKLY 11/28/2019 Discontinued (Reorder) Diclofenac Sodium 1 % Apply 2 g to 100 g 0 gelIndications: Painful neck qid 0 patella, unspecified laterality, Primary localized osteoarthrosis, lower leg, unspecified laterality, Muscle weakness of lower extremity, Effusion of lower leg joint, Knee crepitus, unspecified laterality, Patellofemoral instability of right knee with pain documented as of this encounter (statuses as of 11/28/2019) Active Problems Problem Noted Date Acute vaginitis 10/08/2019 Essential hypertension 03/19/2019 Carpal tunnel syndrome on right 03/19/2019 Overview: EMG 02/18/2019 Encounter for screening mammogram for malignant neopl asm of breast 02/04/2019 Overview: Added automatically from request for [email or web address] [id number] Cervical spondylosis with radiculopathy 01/01/2019 Overview: Added automatically from request for [email or web address] [id number] Mixed hyperlipidemia 08/13/2018 Overview: LDL 140 07/17/2018 Left tennis elbow 06/17/2018 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 Overview: R Avulsion fracture of lateral epicondyle of humerus 0 11/14/2017 Painful patella, unspecified laterality 11/05/2017 S/P revision of total hip 09/18/2017 Colon cancer screening 05/24/2017 Overview: Added automatically from request for [email or web address] [id number] Hematemesis with nausea 05/24/2017 Overview: Added automatically from request for [email or web address] [id number] Nausea and vomiting, intractability of vomiting not s pecified, unspecified 05/24/2017 vomiting type Overview: Added automatically from request for [email or web address] [id number] ANJELICA (obstructive sleep apnea) 05/10/2017 Obesity (BMI 30-39.9) 05/01/2017 Microhematuria 02/14/2017 Complex tear of medial meniscus of right knee as curr ent injury, initial 01/18/2017 encounter Overview: Added automatically from request for [email or web address] [id number] Elevated MCV 07/25/2016 Overview: 103.4 07/22/2016 Muscle [...] lobe nodular opacitiy on chest xray at [facility] 05/22/2015 Hiatus hernia syndrome 04/09/2015 [...] lower leg 11/25/2013 Overview: ICD10 Diagnosis Term Dice Table Person Utility Knee crepitus 11/25/2013 Genu valgum, acquired 11/25/2013 Overview: ICD10 Diagnosis Term Dice Table Person Utility Patellofemoral misalignment with pain 11/25/2013 Primary [...] 11/16/2010 Headache 04/08/2010 Overview: ICD10 Diagnosis Term Dice Table Person Utility Nonerosive nonspecific gastritis 04/08/2010 Overview: EGD Dr. Lloyd Glossitis 02/23/2010 Tobacco use disorder 02/23/2010 Menorrhagia 05/19/2009 Vision blurred 05/19/2009 Acute upper respiratory infection 08/14/2008 Overview: ICD10 Diagnosis Term Dice Table Person Utility Acute pharyngitis 08/14/2008 Screening for malignant neoplasm of cervix 9 Overview: ICD10 Diagnosis Term Dice Table Person Utility Breast screening 07/16/2008 Overview: ICD10 Diagnosis Term Dice Table Person Utility Urinary tract infection, site not specified 04/29/20 08 Backache 06/02/2007 Overview: Lower back pain ICD10 Diagnosis Term Dice Table Person Utility Pain in joint 06/02/2007 Overview: ICD10 Diagnosis Term Dice Table Person Utility Cervicalgia 06/02/2007 Myalgia and myositis 06/02/2007 Overview: Bilateral trapezius pain ICD10 Diagnosis Term Dice Table Person Utility Absence of menstruation 04/25/2007 Anemia 03/25/2007 Overview: ICD10 Diagnosis Term Dice Table Person Utility Helicobacter pylori infection 06/11/2006 Overview: ICD10 Diagnosis Term Dice Table Person Utility Acute peptic ulcer 06/11/2006 Overview: ICD10 Diagnosis Term Dice Table Person Utility Abdominal pain 04/25/2006 Overview: ICD10 Diagnosis Term Dice Table Person Utility Ankylosing spondylitis 04/25/2006 Vaginitis and vulvovaginitis 04/25/2006 Overview: ICD10 Diagnosis Term Dice Table Person Utility Other, mixed, or unspecified nondependent drug abuse, continuous 11/30/2005 documented as of this encounter (statuses as of 11/28/2019) Resolved Problems Problem Noted Date Resolved Date Arm laceration, right, subsequent encounter 04/13/2014 04/13/2014 Syncope and collapse 02/27/2007 06/28/2014 Bipolar I disorder, most recent episode (or current) unspec ified 01/03/2007 01/23/2018 Overview: Dr. 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 Date Recorded COVID-19 Exposure Response 11/28/2019 10:05 AM CDT In the last month, have you been in contact with No / Unsure someone who was confirmed or suspected to have Coronavirus / COVID-19? documented as of this encounter Last Filed Vital Signs Reading Time Taken Comments Vital Sign 90/50 11/28/2019 11:33 AM CDT Blood Pressure 87 11/28/2019 10:15 AM CDT Pulse - - Temperature - - Respiratory Rate 98% 11/28/2019 10:15 AM CDT Oxygen Saturation - - Inhaled Oxygen Concentration 89 kg (196 lb 1.6 oz) 11/28/2019 10:15 AM CDT Weight - - Height 32.63 11/19/2019 8:49 AM CDT Body Mass Index documented in this encounter Progress Notes * Ovidio Clarke Jr., MD - 11/28/2019 10:30 AM CDT Chief Complaint had concerns including Hypertension. History of Present Illness Informant(s): Self We had the pleasure of seeing Juan Tinoco who is a 54 year old female who h as a past medical history of Abdominal pain, Abnormal glucose (10/12/2013), Absenc e of menstruation (04/25/2007), Acute peptic ulcer, unspecified site, without me ntion of hemorrhage and perforation, Acute peptic ulcer, unspecified site, witho ut mention of hemorrhage, perforation, or obstruction, Acute pharyngitis (08/14/19 09), Acute upper respiratory infections of unspecified site (08/14/2008), Acute va ginitis (10/08/2019), Anemia, unspecified (03/25/2007), Ankylosing spondylitis (sandi gnosed around 2003), Anterior uveitis-left eye (11/13/2012), Arm laceration, right , subsequent encounter (04/13/2014), Avulsion fracture of lateral epicondyle of h umerus (11/14/2017), B12 deficiency (05/08/2013), Bipolar I disorder, most recent episode (or current) unspecified (01/03/2007), Blepharitis of both eyes ( 3), Breast screening, unspecified (07/16/2008), Bronchitis (05/27/2015), Carpal tu nnel syndrome on right (03/19/2019), Cervical radiculopathy (2011), Elevated MCV (07/25/2016), Failed total hip arthroplasty (11/20/2017), Glossitis ( 0), H. pylori infection (08/20/2015), Headache(784.0) (04/08/2010), Helicobacter p ylori (H. pylori), Hematuria (02/11/2012), Hiatus hernia syndrome (04/09/2015), Imm unization deficiency (10/09/2014), Knee pain, right (10/10/2013), Laceration of arm, right, initial encounter (04/13/2014), MAC complex (11/08/2015), Meniscus tear (01/12/2014), Menorrhagia (05/19/2009), Microhematuria (02/14/2017), Mixed hyperlipidem ia (08/13/2018), Mycobacterium avium complex (08/20/2015), Mycobacterium avium infe ction (08/20/2015), Nonerosive nonspecific gastritis (04/08/2010), ANJELICA (obstructiv e sleep apnea), Other abnormality of red blood cells (05/06/2013), Other screeni ng mammogram (01/06/2015), Plantar fascial fibromatosis (04/17/2008), RECURR DEPR PSYCH-PSYCHOTIC (11/30/2005), Schizoaffective disorder, bipolar type (08/20/2015), Screening for breast cancer (08/10/2011), Screening for malignant neoplasm of the cervix (07/16/2008), Special screening for osteoporosis (07/16/2008), Syncope and c ollapse (02/27/2007), Tobacco use disorder (02/23/2010), Urinary tract infection, site not specified (04/29/2008), Uveitis, anterior (12/20/2012), Vaginitis and vu lvovaginitis, unspecified, Varicose veins of legs (11/16/2010), and Vision blurre d (05/19/2009). who presents today for the following health concerns: Hypertension: She is taking HCTZ 25 mg daily. She denies CP, SOB, or swelling. Rheumatoid Arthritis and Ankylosing Spondylitis: She takes Gabapentin 600 mg 2 t ablets BID, methotrexate 2.5 mg weekly, cyclobenzaprine 5 mg QID, Husser 10 mg QI D, folic acid and Remicade infusion. She got Husser on 11/18/2019 for 120 tablets. She also uses Diclofenac Sodium 1 % gel. She gets an infusion every 8 weeks. Bahman hairston f/u regularly with rheumatology. Microbacterium [place] Complex: She is taking rifampin 300 mg twice a week, and et hambutol 400 mg 3 tablets 3 times a week. She denies any SOB. Patient reports f/ u regularly with Dr. Hogan. Patient reports difficulty with antibiotics. Schizoaffective disorder: Patient f/u regularly with psychiatry. She was prescri bed Ziprasidone 20 mg daily. She denies any SI or HI. Tobacco Abuse: Pt is a tobacco user and smokes 1 pack every day. She is not inte rested in quitting today and understands the health concerns. GERD: She takes Nexium 40 mg daily with symptom relief. Insomnia: Patient reports well controlled with ambien 10 mg QHS PRN. Current Medications Current Outpatient Medications Medication Sig Dispense Refill azithromycin 250 mg tablet Take 1 tablet by mouth. cyclobenzaprine 5 mg tablet 2 po bid 120 tablet 2 Diclofenac Sodium 1 % gel Apply 2 g to neck qid 100 g 0 ethambutol 400 mg tablet 3 tabs three times a week gabapentin 600 mg tablet Take 2 tablets by mouth 2 (two) times daily. 90 tab let 6 HYDROcodone-acetaminophen 10-325 mg tablet Take 1 tablet by mouth every 6 (s ix) hours as needed for Pain (scale 4-6). 120 tablet 0 methotrexate 2.5 mg tablet Take by mouth TAKE 5 TABLETS BY MOUTH 1 TIME WEEK LY 60 tablet 0 rifAMPin 300 mg capsule 2 tabs 3 x weekly ziprasidone 20 mg capsule Take 1 capsule by mouth 2 (two) times daily with m eals. 60 capsule 2 HYDROcodone-acetaminophen 10-325 mg tablet Take 1 tablet by mouth every 6 (s ix) hours as needed for Pain (scale 4-6). 120 tablet 0 esomeprazole (NEXIUM) 40 mg capsule Take 1 capsule by mouth daily with break fast. TAKE ONE CAPSULE BY MOUTH EVERY MORNING WITH BREAKFAST 90 capsule 3 hydroCHLOROthiazide 25 mg tablet Take 1 tablet by mouth daily. 30 tablet 11 metroNIDAZOLE 500 mg tablet TK 1 T PO BID X 7 DAYS 14 tablet 0 zolpidem (AMBIEN) 10 mg tablet Take 1 tablet by mouth at bedtime as needed f or Insomnia. 30 tablet 2 ergocalciferol, vitamin d2, 1,250 mcg (50,000 unit) capsule Take 1 capsule b y mouth weekly. 8 capsule 0 cyclobenzaprine 5 mg tablet TAKE 1 TABLET BY MOUTH THREE TIMES DAILY 30 tabl et 5 foLIC acid 1 mg tablet Take 2 tablets by mouth daily. 180 tablet 3 metoclopramide HCl 10 mg tablet Take 1 [...] into vagina at bedtime. 45 g 0 VENTOLIN HFA 90 mcg/actuation inhaler INHALE 2 [...] 01/06/2014 Surgeon: Girish Fountain MD; [facility] OR LOCATION ARTHROSCOPIC MENISCAL REPAIR Right 01/06/2014 Surgeon: Girish Fountain MD; Location: [facility] OR LOCATION CERVICAL EPIDURAL STEROID INJECTION 03/26/2012 Surgeon: Maged Franklin MD PHD; Location: [facility] OR LOCATION CERVICAL EPIDURAL STEROID INJECTION N/A 01/23/2019 Surgeon: Sebastian oDe; Location: [place] OR Location COLONOSCOPY N/A 06/22/2015 Surgeon: Arian To MD; Location: [facility] COLONOSCOPY N/A 02/17/2019 Surgeon: Ricco Hannah DO; Location: [place] OR Location EGD (ENDO) 03/23/2015 [facility] at [place] ESOPHAGOGASTRODUODENOSCOPY 04/13 ulcers ESOPHAGOGASTRODUODENOSCOPY 06/15 ESOPHAGOGASTRODUODENOSCOPY 10/07/2009 mild nonerosive gastritis ESOPHAGOGASTRODUODENOSCOPY N/A 06/22/2015 Surgeon: Arian To MD; Location: [facility] ESOPHAGOGASTRODUODENOSCOPY N/A 02/17/2019 Surgeon: Ricco Hannah DO; Location: [facility] FLEXIBLE BRONCHOSCOPY 05/24/2015 Samira, 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 HIP HEMIARTHROPLASTY 2001 Right KNEE ARTHROSCOPY Right 01/06/2014 Surgeon: Girish Fountain MD; Location: [facility] OPEN CARPAL TUNNEL RELEASE Right 07/15/2019 Surgeon: Zia Resendez MD; Location: [place] [facility] [place] ARTHRS KNE SURG W/MENISCECTOMY MED/LAT W/SHVG 01/06/2014 [place] KNEE SCOPE,REMV LOOSE BODY 01/06/2014 TOTAL HIP ARTHROPLASTY REVISION Right 09/18/2017 Surgeon: Sebastian Bunn MD; [facility] TUBAL LIGATION 1987 Family History Problem Relation [...] file Gets together: Not on file Attends latter day service: Not on file Active member of [...] loss, nosebleeds, rhinorrh ea and sneezing. Eyes: Positive for visual disturbance. Negative for pain, discharge, redness and itching. Respiratory: Negative for cough, choking, chest tightness and shortness of breat h. Breasts: Negative for discharge, mass and pain. Cardiovascular: Negative for chest pain, palpitations and leg swelling. Gastrointestinal: Negative for anal bleeding, blood in stool, constipation, diar braxton and nausea. Genitourinary: Negative for bladder incontinence, dysuria, polyuria, frequency, hematuria, vaginal bleeding, vaginal discharge, enuresis, difficulty urinating, menstrual problem and nocturia. Musculoskeletal: Negative for arthralgias and myalgias. Skin: Negative for color change, pallor and rash. Neurological: Negative for dizziness, seizures, syncope and headaches. Psychiatric/Behavioral: Positive for agitation. Negative for confusion, dysphori c mood, sleep disturbance and suicidal ideas. The patient is nervous/anxious. Endocrine: Negative for hair loss, polydipsia, polyphagia, polyuria and weight l oss. Vitals Vitals: 11/28/19 1015 11/28/19 1133 BP: 113/74 90/50 BP Location: Left arm Left arm Patient Position: Sitting Sitting BP CUFF SIZE: Adult Large Adult Medium Pulse: 87 SpO2: 98% Weight: 196 lb 1.6 oz (89 kg) Physical Exam Physical Exam Constitutional: She is [...] a normal mood and affect. She is agitated. Nursing note and vitals reviewed. Assessment/ Plan 1. Cervicalgia - gabapentin 600 mg tablet; Take 2 tablets by mouth 2 (two) times daily. Dispen se: 90 tablet; Refill: 6 2. Myofascial pain - gabapentin 600 mg tablet; Take 2 tablets by mouth 2 (two) times daily. Dispen se: 90 tablet; Refill: 6 - URINE DRUG (LCMSMS) - COMPREHENSIVE DRUG PANEL; Future 3. Ankylosing spondylitis, unspecified site of spine - cyclobenzaprine 5 mg tablet; 2 po bid Dispense: 120 tablet; Refill: 2 - HYDROcodone-acetaminophen 10-325 mg tablet; Take 1 tablet by mouth every 6 (si x) hours as needed for Pain (scale 4-6). Dispense: 120 tablet; Refill: 0 4. Schizoaffective disorder, depressive type - ziprasidone 20 mg capsule; Take 1 capsule by mouth 2 (two) times daily with me als. Dispense: 60 capsule; Refill: 2 5. Ankylosing spondylitis of multiple sites in spine - methotrexate 2.5 mg tablet; Take by mouth TAKE 5 TABLETS BY MOUTH 1 TIME WEEKL Y Dispense: 60 tablet; Refill: 0 6. Painful patella, unspecified laterality - Diclofenac Sodium 1 % gel; Apply 2 g to neck qid Dispense: 100 g; Refill: 0 - HYDROcodone-acetaminophen 10-325 mg tablet; Take 1 tablet by mouth every 6 (si x) hours as needed for Pain (scale 4-6). Dispense: 120 tablet; Refill: 0 7. Primary localized osteoarthrosis, lower leg, unspecified laterality - Diclofenac Sodium 1 % gel; Apply 2 g to neck qid Dispense: 100 g; Refill: 0 - HYDROcodone-acetaminophen 10-325 mg tablet; Take 1 tablet by mouth every 6 (si x) hours as needed for Pain (scale 4-6). Dispense: 120 tablet; Refill: 0 8. Muscle weakness of lower extremity - Diclofenac Sodium 1 % gel; Apply 2 g to neck qid Dispense: 100 g; Refill: 0 9. Effusion of lower leg joint - Diclofenac Sodium 1 % gel; Apply 2 g to neck qid Dispense: 100 g; Refill: 0 10. Knee crepitus, unspecified laterality - Diclofenac Sodium 1 % gel; Apply 2 g to neck qid Dispense: 100 g; Refill: 0 11. Patellofemoral instability of right knee with pain - Diclofenac Sodium 1 % gel; Apply 2 g to neck qid Dispense: 100 g; Refill: 0 12. Tobacco use disorder - Patient advised on the health risks and concerns of continued tobacco use. 13. Mycobacterium avium complex - rifAMPin 300 mg capsule; 2 tabs 3 x weekly - ethambutol 400 mg tablet; 3 tabs three times a week - azithromycin 250 mg tablet; Take 1 tablet by mouth. Adult health maintenance and preventive care measures reviewed. All new meds reviewed with disclosure re: use, dosing, common side effects. Pt expressed understanding. AVS reviewed and given to patient at conclusion of visit. Follow Up: Three Months Attestations Scribe Attestation: Nito Bejarano, am scribing for, and in the presence of , Ovidio Clarke Jr, MD who performed the services described here-in. Nito allen, November 28, 2019, 7:54 AM Physician Attestation: Ovidio Bejarano Jr, MD, personally performed the serv ices described in this documentation , as scribed by, Nito Salazar in my prese nce and it is both accurate and complete. Ovidio Clarke Jr, MD November 28, 2019, 12:34 PM documented in this encounter Plan of Treatment Care Team Description Date Type Specialty Trey Vega MD [address] [place] [address] [phone] 12/25/2019 Office Visit Dermatology George Dickerson MD [address] [place] [address] [phone] 01/12/2020 Office Visit Psychiatry Omar Clay DO [address] [place] [address] [phone] 2, Jennifer Adult Infusion Nurse 01/13/2020 Nurse Visit [place] [address] [place] [phone] 01/16/2020 Appointment Radiology JayRadhaKellee Giuliano, WAREHOUSE HELPER [address] [place] [address] [phone] 01/16/2020 Appointment [place] [address] [place] [phone] 02/19/2020 Office Visit Family Medicine Omar Clay, DO [address] [place] [address] [phone] 02/24/2020 Office Visit Rheumatology Order Schedule Name Type Priority Associated Diag noses Expected: 11/28/2019, Expires: 1 URINE DRUG (LCMSMS) - LAB Routine Myofasci al pain COMPREHENSIVE DRUG PANEL Expected: 11/28/2019, Expires: 1 BI SCREENING MAMMOGRAM IMAGING Routine Encount er for screening BILATERAL mammogram for malignant neoplasm of breast Health Maintenance Due Date Last Done Comments Breast Cancer Screening 06/14/2019 06/14/2018, (MAMMOGRAM) PAP SMEAR 11/04/2019 11/03/2016 (Previou sly completed), 07/16/2008, 05/26/2005, Additional history exists LUNG CANCER SCREEN: 11/23/2019 Recommended for age 55-80 with 30 + pack year history Zoster Recombinant 06/17/2020 Postponed from 11/06 Vaccine [...] Donal Uhr Bipolar BIPOLAR Right: Hip Donal [id number] #[id number] - S0 head Implanted: Qty: 1 on 09/18/2017 by Sebastian Bunn MD at [facility] 07/07/2021 1023-12 / [id number] / [id number] Cancellous Cubes, Community Tissue BONE Right: [facility] Services Freeze Dried 30 Cc Tissue #1023-12 - [id number] Services Implanted: Qty: 1 on 09/18/2017 by Sebastian Bunn MD at [facility] 03/08/2018 2018-40 / [id number] / [id number] Dbm Putty Maxxeus 10cc Cts #2018-40 BONE Right: Hip [facility] - [id number] Tissue Implanted: Qty: 1 on 09/18/2017 by Services Sebastian Bunn MD at [facility] 04/07/2022 [id number] / 0 / [id number] Delta Ceramic Femoral Head 28mm +5 Head Right: Hip Depuy 06/21 Taper Depuy Ref#[id number] Synthes Implanted: Qty: 1 on 09/18/2017 by Sebastian Bunn MD at [facility] 03/29/2022 [id number] / 0 / [id number] Insert, Aspen Trident 0deg 44mm Liner Right: Hip Donal #[id number] Implanted: Qty: 1 on 09/18/2017 by Sebastian Bunn MD at [facility] 04/24/2022 [id number] / 0 / [id number] Screw Osteolock 3.[address] SCREW Right: Hip Aspen Cancellous 50mm Donal Ref#[id number] Implanted: Qty: 2 on 09/18/2017 by Sebastian Bunn MD at [facility] 06/01/2022 5260-5-020 / 0 / [id number] Screw Ostelock 3.[address] SCREW Right: Hip Aspen Cancellous 20mm Donal Ref#[id number] Implanted: Qty: 1 on 09/18/2017 by Sebastian Bunn MD at [facility] 06/01/2022 5260-5-016 / 0 / [id number] Screw Osteolock 3.[address] SCREW Right: Hip Aspen Cancellous 18mm Aspen Ref#[id number] Implanted: Qty: 1 on 09/18/2017 by Sebastian Bunn MD at [facility] 01/02/2022 509-02-60F / 0 / [id number] Shell, Donal Tritanium Revision Shell Right: Hip Donal Acetabular #[id number] - S0 Implanted: Qty: 1 on 09/18/2017 by Sebastian Bunn MD at [facility] documented as of this encounter Results Not on filedocumented in this encounter Visit Diagnoses Diagnosis Tobacco use disorder - Primary Cervicalgia Myofascial pain Mylagia and myositis, unspecified Ankylosing spondylitis, unspecified sit e of spine Schizoaffective disorder, depressive ty pe Schizoaffective disorder, unspecified c ondition Painful patella, unspecified laterality Primary localized osteoarthrosis, lower leg, unspecified laterality Muscle weakness of lower extremity Muscle weakness (generalized) Effusion of lower leg joint Knee crepitus, unspecified laterality Patellofemoral instability of right kne e with pain Mycobacterium avium complex Other specified mycobacterial diseases Encounter for screening mammogram for m alignant neoplasm of breast Other screening mammogram documented in this encounter Insurance Type Payer Benefit Subscriber ID Effective Phone Address Plan / Dates Group Medicare Adv O [facility] [id number] 2018- MANAGED MEDICARE HEALTHCARE Present DUAL COMPLETE O Medicaid [facility] MEDICAID xxxxxxxxx 2019-P [phone] P O [facility] [id number] [place] [address] documented as of this encounter Advance Directives Patient Lead Etl Developer Explanation Type Date Recorded 0 Advance Directives 08/08/2013 8:00 AM and Living Will Power of Roll Icer Machine 08/08/2013 8:00 AM
--- OUTSIDE RECORDS SUMMARY | 2019-12-13 15:39 | XMS REPORT | Summary of Care ---
Author Author [facility] - Health Organization [facility] - Health Address Unknown Phone Unavailable Care Team Providers Care Embalmer Assistant Name Role Phone Ovidio Clarke MD PCP Reason for Referral * Radiology Services (Routine) Referred By Contact Referred To Contact Status Reason Specialty Diagnoses / [place] [address] [place] [address] New Request Diagnostic Diagnoses Radiology Encounter for screening mammogram for malignant neoplasm of breast P rocedures BI SCREENING MAMMOGRAM BILATERAL Reason for Visit * Reason Comments Hypertension Encounter Details Care Team Description Date [place] [address] [place] [address] Tobacco use disorder (Primary Dx); [...] malignant neoplasm of breast 11/28/2019 [facility] [address] [place] [address] Allergies Comments Active Allergy Reactions [...] 02/04/2019 Overview: Added automatically from request for [employer] [id number] Cervical spondylosis with radiculopathy 01/01/2019 Overview: Added automatically from request for [employer] [id number] Mixed hyperlipidemia 08/13/2018 Overview: LDL 140 07/17/2018 Left tennis elbow 06/17/2018 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 Overview: R Avulsion fracture of lateral epicondyle of humerus 0 11/14/2017 Painful patella, unspecified laterality 11/05/2017 S/P revision of total hip 09/18/2017 Colon cancer screening 05/24/2017 Overview: Added automatically from request for [employer] [id number] Hematemesis with nausea 05/24/2017 Overview: Added automatically from request for [employer] [id number] Nausea and vomiting, intractability of vomiting not s pecified, unspecified 05/24/2017 vomiting type Overview: Added automatically from request for [employer] [id number] ANJELICA (obstructive sleep apnea) 05/10/2017 Obesity (BMI 30-39.9) 05/01/2017 Microhematuria 02/14/2017 Complex tear of medial meniscus of right knee as curr ent injury, initial 01/18/2017 encounter Overview: Added automatically from request for [employer] [id number] Elevated MCV 07/25/2016 Overview: 103.4 07/22/2016 Muscle [...] leg 11/25/2013 Overview: ICD10 Diagnosis Term [employer] Knee crepitus 11/25/2013 Genu valgum, acquired 11/25/2013 Overview: ICD10 Diagnosis Term [employer] Patellofemoral misalignment with pain 11/25/2013 Primary [...] Headache 04/08/2010 Overview: ICD10 Diagnosis Term [employer] Nonerosive nonspecific gastritis 04/08/2010 Overview: EGD Dr. Lloyd Glossitis 02/23/2010 Tobacco use disorder 02/23/2010 Menorrhagia 05/19/2009 Vision blurred 05/19/2009 Acute upper respiratory infection 08/14/2008 Overview: ICD10 Diagnosis [employer] Acute pharyngitis 08/14/2008 Screening for malignant neoplasm of cervix 9 Overview: ICD10 Diagnosis [employer] Breast screening 07/16/2008 Overview: ICD10 Diagnosis [employer] Urinary tract infection, site not specified 04/29/20 08 Backache 06/02/2007 Overview: Lower back pain ICD10 Diagnosis [employer] Pain in joint 06/02/2007 Overview: ICD10 Diagnosis [employer] Cervicalgia 06/02/2007 Myalgia and myositis 06/02/2007 Overview: Bilateral trapezius pain ICD10 Diagnosis [employer] Absence of menstruation 04/25/2007 Anemia 03/25/2007 Overview: ICD10 Diagnosis [employer] Helicobacter pylori infection 06/11/2006 Overview: ICD10 Diagnosis [employer] Acute peptic ulcer 06/11/2006 Overview: ICD10 Diagnosis [employer] Abdominal pain 04/25/2006 Overview: ICD10 Diagnosis Term [employer] Ankylosing spondylitis 04/25/2006 Vaginitis and vulvovaginitis 04/25/2006 Overview: ICD10 Diagnosis Term [employer] Other, mixed, or unspecified nondependent drug [...] 11/30/2005 02/11/2018 Overview: ICD10 Diagnosis [employer] documented as of this encounter (statuses [...] 2.5 mg weekly, cyclobenzaprine 5 mg QID, Stella 10 mg QI D, folic acid and Remicade infusion. She got Stella on 11/18/2019 for 120 tablets. She also uses Diclofenac Sodium 1 % gel. She gets an infusion every 8 weeks. Bahman hairston f/u regularly with rheumatology. Microbacterium Y[place] Complex: She is taking rifampin 300 mg [...] 02/11/2012 Hiatus hernia syndrome 04/09/2015 EGD 03/23/2015 [facility] Immunization deficiency 10/09/2014 She is NOT immune [...] 01/06/2014 Surgeon: Girish Fountain MD; Location: [facility] OR LOCATION ARTHROSCOPIC MENISCAL REPAIR Right 01/06/2014 Surgeon: Girish Fountain MD; Location: [facility] OR LOCATION CERVICAL EPIDURAL STEROID INJECTION 03/26/2012 Surgeon: Maged Franklin MD PHD; Location: [facility] OR LOCATION CERVICAL EPIDURAL STEROID INJECTION N/A 01/23/2019 Surgeon: Sebastian Doe; Location: [facility] COLONOSCOPY N/A 06/22/2015 Surgeon: Arian To MD; Location: [facility] COLONOSCOPY N/A 02/17/2019 Surgeon: Ricco Hannah DO; Location: [facility] EGD (ENDO) 03/23/2015 [facility] [place] ESOPHAGOGASTRODUODENOSCOPY 04/13 ulcers ESOPHAGOGASTRODUODENOSCOPY 06/15 ESOPHAGOGASTRODUODENOSCOPY 10/07/2009 mild nonerosive gastritis ESOPHAGOGASTRODUODENOSCOPY N/A 06/22/2015 Surgeon: Arian To MD; Location: [facility] LOCATION ESOPHAGOGASTRODUODENOSCOPY N/A 02/17/2019 Surgeon: Ricco Hannah DO; Location: [facility] FLEXIBLE BRONCHOSCOPY 05/24/2015 Samira, 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 HIP HEMIARTHROPLASTY 2001 Right KNEE ARTHROSCOPY Right 01/06/2014 Surgeon: Girish Fountain MD; Location: [facility] OPEN CARPAL TUNNEL RELEASE Right 07/15/2019 Surgeon: Zia Resendez MD; Location: [facility] LA ARTHRS KNE SURG W/MENISCECTOMY MED/LAT W/SHVG 01/06/2014 LA KNEE SCOPE,REMV LOOSE BODY 01/06/2014 TOTAL HIP ARTHROPLASTY REVISION Right 09/18/2017 Surgeon: Sebastian Bunn MD; [facility] TUBAL LIGATION 1987 Family History [...] anal bleeding, blood in stool, constipation, diar braxotn and nausea. Genitourinary: Negative for bladder incontinence, [...] Description Date Type Specialty Trey Vega MD [address] [place] [address] [phone] 12/25/2019 Office Visit Dermatology George Dickerson MD [address] [place] [address] [phone] 01/12/2020 Office Visit Psychiatry Omar Clay DO [address] [place] [address] [phone] 2, Jennifer Adult Infusion Nurse 01/13/2020 Nurse Visit [place] [address] [place] [phone] 01/16/2020 Appointment Radiology JayRadhaKellee Giuliano, CONCRETE LABORER [address] [place] [address] [phone] 01/16/2020 Appoint[place] [address] [place] [phone] 02/19/2020 Office Visit Family Medicine Omar Clay, DO [address] [place] [address] [phone] 02/24/2020 Office Visit Rheumatology Order Schedule Name [...] Donal Uhr Bipolar BIPOLAR Right: Hip Donal [id number] #Uh1-44-28 - S0 head Implanted: Qty: 1 on 09/18/2017 by Sebastian Bunn MD at [facility] 07/07/2021 1023-12 / [id number] / [id number] Cancellous Cubes, Community Tissue BONE Right: [facility] Services Freeze Dried 30 Cc Tissue #1023-12 - [id number] Services Implanted: Qty: 1 on 09/18/2017 by Sebastian Bunn MD at [facility] 03/08/2018 2018-40 / [id number] / [id number] Dbm Putty Maxxeus 10cc Cts #2018-40 BONE Right: Hip [facility] - [id number] Tissue Implanted: Qty: 1 on 09/18/2017 by Services Sebastian Bunn MD at [facility] 04/07/2022 1365-28-720 / 0 / [id number] Delta Ceramic Femoral Head 28mm +5 Head Right: Hip Depuy 06/21 Taper Depuy Ref#[id number] Synthes Implanted: Qty: 1 on 09/18/2017 by Sebastian Bunn MD at [facility] 03/29/2022 623-00-44F / 0 / [id number] Insert, [place] Trident 0deg 44mm Liner Right: Hip Donal #623-00-44f Implanted: Qty: 1 on 09/18/2017 by Sebastian Bunn MD at [facility] 04/24/2022 5260-5-050 / 0 / [id number] Screw Osteolock 3.[address] SCREW Right: Hip [place] Cancellous 50mm Donal Ref#[id number] Implanted: Qty: 2 on 09/18/2017 by Sebastian Bunn MD at [facility] 06/01/2022 5260-5-020 / 0 / [id number] Screw Ostelock 3.[address] SCREW Right: Hip [place] Cancellous 20mm Donal Ref#[id number] Implanted: Qty: 1 on 09/18/2017 by Sebastian Bunn MD at [facility] 06/01/2022 5260-5-016 / 0 / [id number] Screw Osteolock 3.[address] SCREW Right: Hip [place] Cancellous 18mm [place] Ref#[id number] Implanted: Qty: 1 on 09/18/2017 by Sebastian Bunn MD at [facility] 01/02/2022 509-02-60F / 0 / [id number] Shell, Donal Tritanium Revision Shell Right: Hip Donal Acetabular #509-02-60f - S0 Implanted: Qty: 1 on 09/18/2017 by Sebastian Bunn MD at [facility] documented as of this encounter Results Not [...] Plan / Dates Group Medicare Adv O [facility] [id number] 2018- MANAGED MEDICARE HEALTHCARE Present DUAL COMPLETE O Medicaid [facility] MEDICAID xxxxxxxxx 2019-P [phone] P O [facility] [id number] [place] [address] documented as of this encounter Advance Directives Patient Car Salesperson Explanation Type Date Recorded 0 Advance Directives 08/08/2013 8:00 AM and Living Will Power of Human Resources Associate 08/08/2013 8:00 AM
--- OUTSIDE RECORDS SUMMARY | 2019-12-13 15:39 | XMS REPORT | Summary of Care ---
Author Author [facility] - Health Organization [facility] - Health Address Unknown Phone Unavailable Care Team Providers Care Prawn Trawler Hand Name Role Phone Ovidio Clarke MD PCP Reason for Visit * Reason Comments Refill Request Encounter Details Care Team Description Date [place] [address] [place] [address] Refill Request [facility]/19/2019 [facility] [address] [place] [phone] Allergies Comments Active Allergy Reactions Severity Noted [...] Patellofemoral instability of right knee with pain 11/19/2019 Discontinued (Reorder) Diclofenac Sodium 1 % Apply [...] Added automatically from request for jimmy [employer]orio [id number] Cervical spondylosis with radiculopathy 01/01/2019 Overview: Added automatically from request for jimmy solorio [id number] Mixed hyperlipidemia 08/13/2018 Overview: LDL 140 07/17/2018 Left tennis elbow 06/17/2018 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 Overview: R Avulsion fracture of lateral epicondyle of humerus 0 11/14/2017 Painful patella, unspecified laterality 11/05/2017 S/P revision of total hip 09/18/2017 Colon cancer screening 05/24/2017 Overview: Added automatically from request for jimmy solorio [id number] Hematemesis with nausea 05/24/2017 Overview: Added automatically from request for jimmy solorio [id number] Nausea and vomiting, intractability of vomiting not s pecified, unspecified 05/24/2017 vomiting type Overview: Added automatically from request for jimmy solorio [id number] ANJELICA (obstructive sleep apnea) 05/10/2017 Obesity (BMI 30-39.9) 05/01/2017 Microhematuria 02/14/2017 Complex tear of medial meniscus of right knee as curr ent injury, initial 01/18/2017 encounter Overview: Added automatically from request for jimmy solorio [id number] Elevated MCV 07/25/2016 Overview: 103.4 07/22/2016 Muscle [...] lobe nodular opacitiy on chest xray at [facility] 05/22/2015 Hiatus hernia syndrome 04/09/2015 Overview: EGD 03/23/2015 [facility] Other screening mammogram 01/06/2015 Immunization deficiency 10/09/2014 [...] lower leg 11/25/2013 Overview: ICD10 Diagnosis Term [employer] Knee crepitus 11/25/2013 Genu valgum, acquired 11/25/2013 Overview: ICD10 Diagnosis Term [employer] Patellofemoral misalignment with pain 11/25/2013 Primary [...] 11/16/2010 Headache 04/08/2010 Overview: ICD10 Diagnosis Term [employer] Nonerosive nonspecific gastritis 04/08/2010 Overview: EGD Dr. Lloyd Glossitis 02/23/2010 Tobacco use disorder 02/23/2010 Menorrhagia 05/19/2009 Vision blurred 05/19/2009 Acute upper respiratory infection 08/14/2008 Overview: ICD10 Diagnosis Term [employer] Acute pharyngitis 08/14/2008 Screening for malignant neoplasm of cervix 9 Overview: ICD10 Diagnosis Term [employer] Breast screening 07/16/2008 Overview: ICD10 Diagnosis Term [employer] Urinary tract infection, site not specified 04/29/20 08 Backache 06/02/2007 Overview: Lower back pain ICD10 Diagnosis Term [employer] Pain in joint 06/02/2007 Overview: ICD10 Diagnosis Term [employer] Cervicalgia 06/02/2007 Myalgia and myositis 06/02/2007 Overview: Bilateral trapezius pain ICD10 Diagnosis Term [employer] Absence of menstruation 04/25/2007 Anemia 03/25/2007 Overview: ICD10 Diagnosis Term [employer] Helicobacter pylori infection 06/11/2006 Overview: ICD10 Diagnosis Term [employer] Acute peptic ulcer 06/11/2006 Overview: ICD10 Diagnosis Term [employer] Abdominal pain 04/25/2006 Overview: ICD10 Diagnosis Term [employer] Ankylosing spondylitis 04/25/2006 Vaginitis and vulvovaginitis 04/25/2006 Overview: ICD10 Diagnosis Term [employer] Other, mixed, or unspecified nondependent drug [...] eatures 11/30/2005 02/11/2018 Overview: ICD10 Diagnosis Term Group [employer] documented as of this encounter (statuses [...] Date [place] [address] [place] [address] 11/28/2019 Telemedicine Family Medicine Visit Trey Vega MD [address] [place] [phone] 12/25/2019 Office Visit Dermatology Omar Clay DO [address] [place], [place] [address] 2, Jennifer Adult Infusion Nurse 01/13/2020 Nurse Visit [place] [address] [place] [address] 01/16/2020 Appointment Radiology Giuliano Gardner, CROWN ATTACHER [address] [place] [address] [phone] 01/16/2020 Appointment Radiology Obed Omar M, [address] [place] [address] [phone] 02/24/2020 Office Visit Rheumatology Health Maintenance Due Date [...] UH1-44-28 / 0 / [id number] Bipolar Head, [place] Uhr Bipolar BIPOLAR Right: Hip [place] [id number] #Uh1-44-28 - S0 head Implanted: Qty: 1 on 09/18/2017 by Sebastian Bunn MD at [facility] 07/07/2021 1023-12 / [id number] / [id number] Cancellous Cubes, Community Tissue BONE Right: Hip Community Services Freeze Dried 30 Cc Tissue #1023-12 - [id number] Services Implanted: Qty: 1 on 09/18/2017 by Sebastian Bunn MD at [facility] 03/08/20182017-40 / [id number] / [id number] Dbm Putty Maxxeus 10cc Cts #2018-40 BONE Right: Hip [facility] - [id number] Tissue Implanted: Qty: 1 on 09/18/2017 by Services Sebasitan Bunn MD at [facility] 04/07/2022 1365-28-720 / 0 / [id number] Delta Ceramic Femoral Head 28mm +5 Head Right: Hip Depuy 06/21 Taper Depuy Ref#[id number] Synthes Implanted: Qty: 1 on 09/18/2017 by Sebastian Bunn MD at [facility] 03/29/2022 623-00-44F / 0 / [id number] Insert, [place] Trident 0deg 44mm Liner Right: Hip Donal #623-00-44f Implanted: Qty: 1 on 09/18/2017 by Sebastian Bunn MD at [facility] 04/24/2022 5260-5-050 / 0 / [id number] Screw Osteolock 3.[address] SCREW Right: Hip [place] Cancellous 50mm Donal Ref#5260-5-050 Implanted: Qty: 2 on 09/18/2017 by Sebastian Bunn MD at [facility] 06/01/2022 5260-5-020 / 0 / [id number] Screw Ostelock 3.[address] SCREW Right: Hip [place] Cancellous 20mm Donal Ref#5260-5-020 Implanted: Qty: 1 on 09/18/2017 by Sebastian Bunn MD at [facility] 06/01/2022 5260-5-016 / 0 / [id number] Screw Osteolock 3.[address] SCREW Right: Hip Donal Cancellous 18mm Donal Ref#[id number] Implanted: Qty: 1 on 09/18/2017 by Sebastian Bunn MD at [facility] 01/02/2022 509-02-60F / 0 / [id number] Shell, [place] Tritanium Revision Shell Right: Hip Donal Acetabular #509-02-60f - S0 Implanted: Qty: 1 on 09/18/2017 by Sebastian Bunn MD at [facility] documented as of this encounter Results [...] / Dates Group Medicare Adv O [facility] [id number] 2018- MANAGED MEDICARE HEALTHCARE Present DUAL COMPLETE HMO [facility] [id number] 2018- [address] BOX SOLUT[employer] H Present [address] [place] [address] Medicaid [facility] MEDICAID xxxxxxxxx 2019-P [phone] [address] [place] [address] [place] [address] documented as of this encounter Advance Directives Patient Fire Code Inspector Explanation Type Date Recorded 0 Advance Directives 08/08/2013 8:00 AM and Living Will Power of Health Information Tech 08/08/2013 8:00 AM
--- OUTSIDE RECORDS SUMMARY | 2019-12-13 15:39 | XMS REPORT | Summary of Care ---
Author Author [facility] - Health Organization [facility] - Health Address Unknown Phone Unavailable Care Team Providers Care Rn Surgery Name Role Phone Ovidio Clarke MD PCP Reason for Visit * Reason Comments Forms Encounter Details Care Team Description Date Type Department Omar Clay, DO [address] [place] [address] [phone] Forms 11/20/2019 Telephone [facility] Health Interna l Medicine Rhe[facility] [address], [address] [place] [address] Allergies Comments Active Allergy Reactions Severity Noted Date Aspirin Hives 03/21/2012 Sulfa (Sulfonamide Hives 11/29/2005 Antibiotics) documented as of this encounter (statuses as of 11/20/2019) Medications End Date Status Medication Sig Dispensed [...] as of this encounter (statuses as of 11/20/2019) Active Problems Problem Noted Date Acute vaginitis 10/08/2019 Essential hypertension 03/19/2019 Carpal tunnel syndrome on right 03/19/2019 Overview: EMG 02/18/2019 Special screening for malignant neoplasms, colon Overview: Added automatically from request for jimmy solorio [id number] Cervical spondylosis with radiculopathy 01/01/2019 Overview: Added automatically from request for jimmy solorio [id number] Mixed hyperlipidemia 08/13/2018 Overview: LDL 140 07/17/2018 Left tennis elbow 06/17/2018 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 Overview: R Avulsion fracture of lateral epicondyle of humerus 0 11/14/2017 Painful patella, unspecified laterality 11/05/2017 S/P revision of total hip 09/18/2017 Colon cancer screening 05/24/2017 Overview: Added automatically from request for jimmy solorio [id number] Hematemesis with nausea 05/24/2017 Overview: Added automatically from request for jimmy solorio [id number] Nausea and vomiting, intractability of vomiting not s pecified, unspecified 05/24/2017 vomiting type Overview: Added automatically from request for jimmy solorio [id number] ANJELICA (obstructive sleep apnea) 05/10/2017 Obesity (BMI 30-39.9) 05/01/2017 Microhematuria 02/14/2017 Complex tear of medial meniscus of right knee as curr ent injury, initial 01/18/2017 encounter Overview: Added automatically from request for jimmy solorio [id number] Elevated MCV 07/25/2016 Overview: 103.4 07/22/2016 Muscle [...] Overview: EGD 03/23/2015 [facility] screening mammogram 01/06/2015 Immunization deficiency 10/09/2014 Overview: [...] lower leg 11/25/2013 Overview: ICD10 Diagnosis Term Jackhammer Splitter 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 Knee crepitus 11/25/2013 Genu valgum, acquired 11/25/2013 Overview: ICD10 Diagnosis Term Jackhammer Splitter 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 Patellofemoral misalignment with pain 11/25/2013 [...] 11/16/2010 Headache 04/08/2010 Overview: ICD10 Diagnosis Term Jackhammer Splitter 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 Lloyd Glossitis 02/23/2010 Tobacco use disorder 02/23/2010 Menorrhagia 05/19/2009 Vision blurred 05/19/2009 Acute upper respiratory infection 08/14/2008 Overview: ICD10 Diagnosis Term Jackhammer Splitter 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 Acute pharyngitis 08/14/2008 Screening for malignant neoplasm of cervix 9 Overview: ICD10 Diagnosis Term Jackhammer Splitter 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 Breast screening 07/16/2008 Overview: ICD10 Diagnosis Term Jackhammer Splitter 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 Urinary tract infection, site not specified 04/29/20 08 Backache 06/02/2007 Overview: Lower back pain ICD10 Diagnosis Term Jackhammer Splitter 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 Pain in joint 06/02/2007 Overview: ICD10 Diagnosis Term Jackhammer Splitter 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 Cervicalgia 06/02/2007 Myalgia and myositis 06/02/2007 Overview: Bilateral trapezius pain ICD10 Diagnosis Term Jackhammer Splitter 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 Absence of menstruation 04/25/2007 Anemia 03/25/2007 Overview: ICD10 Diagnosis Term Jackhammer Splitter 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 Helicobacter pylori infection 06/11/2006 Overview: ICD10 Diagnosis Term Jackhammer Splitter 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 Acute peptic ulcer 06/11/2006 Overview: ICD10 Diagnosis Term Jackhammer Splitter 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 Abdominal pain 04/25/2006 Overview: ICD10 Diagnosis Term Jackhammer Splitter 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 Ankylosing spondylitis 04/25/2006 Vaginitis and vulvovaginitis 04/25/2006 Overview: ICD10 Diagnosis Term Jackhammer Splitter 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 Other, mixed, or unspecified nondependent drug abuse, continuous 11/30/2005 documented as of this encounter (statuses as of 11/20/2019) Resolved Problems Problem Noted Date Resolved Date Arm laceration, right, subsequent encounter 04/13/2014 04/13/2014 Syncope and collapse 02/27/2007 06/28/2014 Bipolar I disorder, most recent episode (or current) unspec ified 01/03/2007 01/23/2018 Overview: Dr. 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 11/30/2005 02/11/2018 Overview: ICD10 Diagnosis Term Jackhammer Splitter 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 documented as of this encounter (statuses as of 11/20/2019) Immunizations Name Administration Dates Next Due Hepatitis [...] Date [place] [address] [place] [address] 11/28/2019 Office Visit Family Medicine Trey Vega MD [address] [place] [address] 12/25/2019 Office Visit Dermatology Omar Clay, DO [address] [place] [address] [phone] 2Jennifer Adult Infusion Nurse 01/13/2020 Nurse Visit [place] [address] [place] [address] 01/16/2020 Appointment Radiology Giuliano Gardner, OPERATOR LIGHTS [address] [place] [address] [phone] 01/16/2020 Appointment Radiology Omar Clay DO [address] [place] [address] [phone] 02/24/2020 Office Visit Rheumatology Health Maintenance Due [...] Head, Donal Uhr Bipolar BIPOLAR Right: Hip [place] [id number] #Uh1-44-28 - S0 head Implanted: Qty: 1 on 09/18/2017 by Sebastian Bunn MD at [facility] [place] 07/07/2021 1023-12 / [id number] / [id number] Cancellous Cubes, [facility] Tissue BONE Right: Hip [facility] Services Freeze Dried 30 Cc Tissue #1023-12 - [id number] Services Implanted: Qty: 1 on 09/18/2017 by Sebastian Bunn MD at [facility] [place] 03/08/20182017-40 / [id number] / [id number] Dbm Putty Maxxeus 10cc Cts #2017-40 BONE Right: Hip [facility] - [id number] Tissue Implanted: Qty: 1 on 09/18/2017 by Services Sebastian Bunn MD at [facility] [place] 04/07/2022 1365-28-720 / 0 / [id number] Delta Ceramic Femoral Head 28mm +5 Head Right: Hip Depuy 06/21 Taper Depuy Ref#[id number] Synthes Implanted: Qty: 1 on 09/18/2017 by Sebastian Bunn MD at [facility] [place] 03/29/2022 623-00-44F / 0 / [id number] Insert, Donal Trident 0deg 44mm Liner Right: Hip [place] #623-00-44f Implanted: Qty: 1 on 09/18/2017 by Sebastian Bunn MD at [facility] [place] 04/24/2022 5260-5-050 / 0 / [id number] Screw Osteolock 3.[address] SCREW Right: Hip Donal Cancellous 50mm Donal Ref#5260-5-050 Implanted: Qty: 2 on 09/18/2017 by Sebastian Bunn MD at [facility] [place] 06/01/2022 5260-5-020 / 0 / [id number] Screw Ostelock 3.[address] SCREW Right: Hip Donal Cancellous 20mm Donal Ref#[id number] Implanted: Qty: 1 on 09/18/2017 by Sebastian Bunn MD at [facility] [place] 06/01/2022 5260-5-016 / 0 / [id number] Screw Osteolock 3.[address] SCREW Right: Hip [place] Cancellous 18mm Donal Ref#[id number] Implanted: Qty: 1 on 09/18/2017 by Sebastian Bunn MD at [facility] [place] 01/02/2022 509-02-60F / 0 / [id number] Shell, [place] Tritanium Revision Shell Right: Hip Donal Acetabular #509-02-60f - S0 Implanted: Qty: 1 on 09/18/2017 by Sebastian Bunn MD at [facility] [place] documented as of this encounter Results Not on filedocumented in this encounter Insurance Type Payer Benefit Subscriber ID Effective Phone Address Plan / Dates Group Medicare Adv HMO [facility] [id number] 2018- MANAGED MEDICARE HEALTHCARE Present DUAL COMPLETE HMO [facility] [employer] [id number] 2018- P O BOX SOLUTIONS H Present [address] [place] [address] Medicaid [place] MED[place] xxxxxxxxx 2019-P [phone] [address] BOX OF [place] [facility] [address] [place] [address] documented as of this encounter Advance Directives Patient Supervisor Airplane Flight Attendant Explanation Type Date Recorded 0 Advance Directives 08/08/2013 8:00 AM and Living Will Power of Hair Tinter 08/08/2013 8:00 AM
--- OUTSIDE RECORDS SUMMARY | 2019-12-13 15:39 | XMS REPORT | Summary of Care ---
Author Author [facility] - Health Organization [facility] - Health Address Unknown Phone Unavailable Care Team Providers Care Manager Placement Name Role Phone Ovidio Clarke MD PCP Reason for Visit * Reason Comments Refill Request Encounter Details Care Team Description Date Type Department Omar Clay, DO [address] [place], [place] [address] Refill Request 11/18/2019 Refill [facility] [address], [address] [place] [address] Allergies Comments Active Allergy Reactions [...] colon Overview: Added automatically from request for Ion Core [id number] Cervical spondylosis with radiculopathy 01/01/2019 Overview: Added automatically from request for Ion Core [id number] Mixed hyperlipidemia 08/13/2018 Overview: LDL 140 07/17/2018 Left tennis elbow 06/17/2018 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 Overview: R Avulsion fracture of lateral epicondyle of humerus 0 11/14/2017 Painful patella, unspecified laterality 11/05/2017 S/P revision of total hip 09/18/2017 Colon cancer screening 05/24/2017 Overview: Added automatically from request for Ion Core [id number] Hematemesis with nausea 05/24/2017 Overview: Added automatically from request for Ion Core [id number] Nausea and vomiting, intractability of vomiting not s pecified, unspecified 05/24/2017 vomiting type Overview: Added automatically from request for jimmy solorio [id number] ANJELICA (obstructive sleep apnea) 05/10/2017 Obesity (BMI 30-39.9) 05/01/2017 Microhematuria 02/14/2017 Complex tear of medial meniscus of right knee as curr ent injury, initial 01/18/2017 encounter Overview: Added automatically from request for jimmy solorio [id number] Elevated MCV 07/25/2016 Overview: 103.4 07/22/2016 Muscle [...] opacitiy on chest xray at [facility] 05/22/2015 Hiatus hernia syndrome 04/09/2015 Overview: [...] lower leg 11/25/2013 Overview: ICD10 Diagnosis Term Dealer Development Manager Utility Knee crepitus 11/25/2013 Genu valgum, acquired 11/25/2013 Overview: ICD10 Diagnosis Term Dealer Development Manager Utility Patellofemoral misalignment with pain 11/25/2013 [...] 11/16/2010 Headache 04/08/2010 Overview: ICD10 Diagnosis Term Dealer Development Manager Utility Nonerosive nonspecific gastritis 04/08/2010 Overview: EGD Dr. Lloyd Glossitis 02/23/2010 Tobacco use disorder 02/23/2010 Menorrhagia 05/19/2009 Vision blurred 05/19/2009 Acute upper respiratory infection 08/14/2008 Overview: ICD10 Diagnosis Term Dealer Development Manager Utility Acute pharyngitis 08/14/2008 Screening for malignant neoplasm of cervix 9 Overview: ICD10 Diagnosis Term Dealer Development Manager Utility Breast screening 07/16/2008 Overview: ICD10 Diagnosis Term Dealer Development Manager Utility Urinary tract infection, site not specified 04/29/20 08 Backache 06/02/2007 Overview: Lower back pain ICD10 Diagnosis Term Dealer Development Manager Utility Pain in joint 06/02/2007 Overview: ICD10 Diagnosis Term Dealer Development Manager Utility Cervicalgia 06/02/2007 Myalgia and myositis 06/02/2007 Overview: Bilateral trapezius pain ICD10 Diagnosis Term Dealer Development Manager Utility Absence of menstruation 04/25/2007 Anemia 03/25/2007 Overview: ICD10 Diagnosis Term Dealer Development Manager Utility Helicobacter pylori infection 06/11/2006 Overview: ICD10 Diagnosis Term Dealer Development Manager Utility Acute peptic ulcer 06/11/2006 Overview: ICD10 Diagnosis Term Dealer Development Manager Utility Abdominal pain 04/25/2006 Overview: ICD10 Diagnosis Term Dealer Development Manager Utility Ankylosing spondylitis 04/25/2006 Vaginitis and vulvovaginitis 04/25/2006 Overview: ICD10 Diagnosis Term Dealer Development Manager Utility Other, mixed, or unspecified nondependent [...] eatures 11/30/2005 02/11/2018 Overview: ICD10 Diagnosis Term Dealer Development Manager Utility documented as of this encounter [...] Date [place] [address] [place] [address] 11/28/2019 Office Visit Family Medicine Trey Vega MD [address] [place] [address] 12/25/2019 Office Visit Dermatology Omar Clay, DO [address] [place], [place] [address] 2, Jennifer Adult Infusion Nurse 01/13/2020 Nurse Visit [place] [address] [place] [address] 01/16/2020 Appointment Radiology Giuliano Gardner, INCOMING INSPECTOR [address] [place], [place] [address] 01/16/2020 Appointment Radiology Omar Clay, DO [address] [place] [address] [phone] 02/24/2020 Office Visit Rheumatology Health Maintenance Due [...] Head, Donal Uhr Bipolar BIPOLAR Right: Hip [place] [id number] #Uh1-44-28 - S0 head Implanted: Qty: 1 on 09/18/2017 by Sebastian Bunn MD at [facility] 07/07/2021 1023-12 / [id number] / [id number] Cancellous Cubes, [facility] Tissue BONE Right: [facility] Freeze Dried 30 Cc Tissue #1023-12 - [id number] Services Implanted: Qty: 1 on 09/18/2017 by Sebastian Bunn MD at [facility] 03/08/2018 2018-40 / [id number] / [id number] Dbm Putty Maxxeus 10cc Cts #2018-40 BONE Right: Hip [facility] - [id number] Tissue Implanted: Qty: 1 on 09/18/2017 by Services Sebastian Bunn MD at [facility] 04/07/2022 1365-28-720 / 0 / [id number] Delta Ceramic Femoral Head 28mm +5 Head [...] [facility] 04/24/2022 5260-5-050 / 0 / [id number] Screw Osteolock 3.[address] SCREW Right: Hip [place] Cancellous 50mm [place] Ref#5260-5-050 Implanted: Qty: 2 on 09/18/2017 by Sebastian Bunn MD at [facility] 06/01/2022 5260-5-020 / 0 / [id number] Screw Ostelock 3.[address] SCREW Right: Hip Donal Cancellous 20mm Donal Ref#5260-5-020 Implanted: Qty: 1 on 09/18/2017 by Sebastian Bunn MD at [facility] 06/01/2022 5260-5-016 / 0 / [id number] Screw Osteolock 3.[address] SCREW Right: Hip Donal Cancellous 18mm [place] Ref#5260-5-016 Implanted: Qty: 1 on 09/18/2017 by Sebastian Bunn MD at [facility] 01/02/2022 509-02-60F / 0 / [id number] Shell, Donal Tritanium Revision Shell Right: Hip Donal Acetabular #509-02-60f - S0 Implanted: Qty: 1 on 09/18/2017 by Sebastian Bunn MD at [facility] documented as of this encounter Results Not on filedocumented in this encounter Visit Diagnoses Diagnosis Ankylosing spondylitis of multiple site s in spine Ankylosing spondylitis documented in this encounter Insurance Type Payer Benefit Subscriber ID Effective Phone Address Plan / Dates Group Medicare Adv HMO [facility] [id number] 2018- MANAGED MEDICARE HEALTHCARE Present DUAL COMPLETE HMO [facility] [employer] [id number] 2018- P O BOX SOLUTIONS H Present [address] [place] [address] Medicaid [facility] MEDICAID xxxxxxxxx 2019-P [phone] P [address] BOX OF [facility] [id number] [place] [address] documented as of this encounter Advance Directives Patient Product Management Intern Explanation Type Date Recorded 0 Advance Directives 08/08/2013 8:00 AM and Living Will Power of Production Potter 08/08/2013 8:00 AM
--- OUTSIDE RECORDS SUMMARY | 2019-12-13 15:39 | XMS REPORT | Summary of Care ---
Author Author [facility] - Health Organization [facility] - Health Address Unknown Phone Unavailable Care Team Providers Care Vice President Global Advertising Sales Name Role Phone Ovidio Clarke MD PCP Reason for Referral * Radiology Services (Routine) Referred By Contact Referred To Contact Status Reason Specialty Diagnoses / [place] [address] [place] [address] New Request Diagnostic Diagnoses Radiology Encounter for screening mammogram for malignant neoplasm of breast P rocedures BI SCREENING MAMMOGRAM BILATERAL Reason for Visit * Reason Comments Hypertension Encounter Details Care Team Description Date [place] [address] [place] [address] Tobacco use disorder (Primary Dx); [...] breast 11/28/2019 [facility] Visit [facility] [address] [place] [address] Allergies Comments Active Allergy Reactions [...] 02/04/2019 Overview: Added automatically from request for Edicy [id number] Cervical spondylosis with radiculopathy 01/01/2019 Overview: Added automatically from request for Edicy [id number] Mixed hyperlipidemia 08/13/2018 Overview: LDL 140 07/17/2018 Left tennis elbow 06/17/2018 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 Overview: R Avulsion fracture of lateral epicondyle of humerus 0 11/14/2017 Painful patella, unspecified laterality 11/05/2017 S/P revision of total hip 09/18/2017 Colon cancer screening 05/24/2017 Overview: Added automatically from request for Edicy [id number] Hematemesis with nausea 05/24/2017 Overview: Added automatically from request for Edicy [id number] Nausea and vomiting, intractability of vomiting not s pecified, unspecified 05/24/2017 vomiting type Overview: Added automatically from request for Edicy [id number] ANJELICA (obstructive sleep apnea) 05/10/2017 Obesity (BMI 30-39.9) 05/01/2017 Microhematuria 02/14/2017 Complex tear of medial meniscus of right knee as curr ent injury, initial 01/18/2017 encounter Overview: Added automatically from request for Edicy [id number] Elevated MCV 07/25/2016 Overview: 103.4 07/22/2016 Muscle [...] nodular opacitiy on chest xray at [facility] 05/22/2015 Hiatus hernia syndrome 04/09/2015 Overview: [...] lower leg 11/25/2013 Overview: ICD10 Diagnosis Term [employer] Knee crepitus 11/25/2013 Genu valgum, acquired 11/25/2013 Overview: ICD10 Diagnosis Term [employer] Patellofemoral misalignment with pain 11/25/2013 [...] 11/16/2010 Headache 04/08/2010 Overview: ICD10 Diagnosis Term [employer] Nonerosive nonspecific gastritis 04/08/2010 Overview: EGD Dr. Lloyd Glossitis 02/23/2010 Tobacco use disorder 02/23/2010 Menorrhagia 05/19/2009 Vision blurred 05/19/2009 Acute upper respiratory infection 08/14/2008 Overview: ICD10 Diagnosis Term [employer] Acute pharyngitis 08/14/2008 Screening for malignant neoplasm of cervix 9 Overview: ICD10 Diagnosis Term [employer] Breast screening 07/16/2008 Overview: ICD10 Diagnosis Term [employer] Urinary tract infection, site not specified 04/29/20 08 Backache 06/02/2007 Overview: Lower back pain ICD10 Diagnosis Term [employer] Pain in joint 06/02/2007 Overview: ICD10 Diagnosis Term [employer] Cervicalgia 06/02/2007 Myalgia and myositis 06/02/2007 Overview: Bilateral trapezius pain ICD10 Diagnosis Term [employer] Absence of menstruation 04/25/2007 Anemia 03/25/2007 Overview: ICD10 Diagnosis Term [employer] Helicobacter pylori infection 06/11/2006 Overview: ICD10 Diagnosis Term [employer] Acute peptic ulcer 06/11/2006 Overview: ICD10 Diagnosis Term [employer] Abdominal pain 04/25/2006 Overview: ICD10 Diagnosis Term [employer] Ankylosing spondylitis 04/25/2006 Vaginitis and vulvovaginitis 04/25/2006 Overview: ICD10 Diagnosis Term [employer] Other, mixed, or unspecified nondependent [...] eatures 11/30/2005 02/11/2018 Overview: ICD10 Diagnosis Term [employer] documented as of this encounter [...] 2.5 mg weekly, cyclobenzaprine 5 mg QID, Bond 10 mg QI D, folic acid and Remicade infusion. She got Bond on 11/18/2019 for 120 tablets. She also uses Diclofenac Sodium 1 % gel. She gets an infusion every 8 weeks. Bahman hairston f/u regularly with rheumatology. Microbacterium Fountain Complex: She is taking rifampin 300 mg [...] 02/11/2012 Hiatus hernia syndrome 04/09/2015 EGD 03/23/2015 [facility] Immunization deficiency 10/09/2014 She is NOT [...] 01/06/2014 Surgeon: Girish Fountain MD; Location: [facility] OR LOCATION ARTHROSCOPIC MENISCAL REPAIR Right 01/06/2014 Surgeon: Girish Fountain MD; Location: [facility] OR LOCATION CERVICAL EPIDURAL STEROID INJECTION 03/26/2012 Surgeon: Maged Franklin MD PHD; Location: [facility] OR LOCATION CERVICAL EPIDURAL STEROID INJECTION N/A 01/23/2019 Surgeon: Sebastian Doe; Location: [facility] COLONOSCOPY N/A 06/22/2015 Surgeon: Arian To MD; Location: [facility]ATION COLONOSCOPY N/A 02/17/2019 Surgeon: Ricco Hannah DO; Location: [facility] Location EGD (ENDO) 03/23/2015 [facility] ESOPHAGOGASTRODUODENOSCOPY 04/13 ulcers ESOPHAGOGASTRODUODENOSCOPY 06/15 ESOPHAGOGASTRODUODENOSCOPY 10/07/2009 mild nonerosive gastritis ESOPHAGOGASTRODUODENOSCOPY N/A 06/22/2015 Surgeon: Arian To MD; Location: [facility] LOCATION ESOPHAGOGASTRODUODENOSCOPY N/A 02/17/2019 Surgeon: Ricco Hannah DO; Location: [facility] FLEXIBLE BRONCHOSCOPY 05/24/2015 Samira, 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 HIP HEMIARTHROPLASTY 2001 Right KNEE ARTHROSCOPY Right 01/06/2014 Surgeon: Girish Fountain MD; Location: [facility] OPEN CARPAL TUNNEL RELEASE Right 07/15/2019 Surgeon: Zia Resendez MD; Location: [facility] [place] ARTHRS KNE SURG W/MENISCECTOMY MED/LAT W/SHVG 01/06/2014 [place] KNEE SCOPE,REMV LOOSE BODY 01/06/2014 TOTAL HIP ARTHROPLASTY REVISION Right 09/18/2017 Surgeon: Sebastian Bunn MD; [facility] TUBAL LIGATION 1987 [...] file Gets together: Not on file Attends restorationist service: Not on file Active member of [...] Description Date Type Specialty Trey Vega MD [address] [place] [phone] 12/25/2019 Office Visit Dermatology George Dickerson MD [address] [place] [address] [phone] 01/12/2020 Office Visit Psychiatry Omar Clay DO [address] [place] [address] [phone] 2, Jennifer Adult Infusion Nurse 01/13/2020 Nurse Visit [place] [address] [place] [phone] 01/16/2020 Appointment Radiology JayRadhaKellee Giuliano, PIPE LINE MAINTENANCE SUPERVISOR [address] [place] [address] [phone] 01/16/2020 Appointment [place] [address] [place] [phone] 02/19/2020 Office Visit Family Medicine Omar Clay, DO [address] [place] [address] [phone] 02/24/2020 Office Visit Rheumatology Order Schedule Name [...] Donal Uhr Bipolar BIPOLAR Right: Hip Donal 98p33oo #[id number] - S0 head Implanted: Qty: 1 on 09/18/2017 by Sebastian Bunn MD at [facility] 07/07/2021 1023-12 / [id number] / [id number] Cancellous Cubes, Community Tissue BONE Right: [facility] Services Freeze Dried 30 Cc Tissue #1023-12 - [id number] Services Implanted: Qty: 1 on 09/18/2017 by Sebastian Bunn MD at [facility] 03/08/2018 2018-40 / [id number] / [id number] Dbm Putty Maxxeus 10cc Cts #2018-40 BONE Right: Hip [facility] - [id number] Tissue Implanted: Qty: 1 on 09/18/2017 by Services Sebastian Bunn MD at [facility] 04/07/2022 1365-28-720 / 0 / [id number] Delta Ceramic Femoral Head 28mm +5 Head Right: Hip Depuy 06/21 Taper Depuy Ref#[id number] Synthes Implanted: Qty: 1 on 09/18/2017 by Sebastian Bunn MD at [facility] 03/29/2022 623-00-44F / 0 / [id number] Insert, Hamlin Trident 0deg 44mm Liner Right: Hip Donal #[id number] Implanted: Qty: 1 on 09/18/2017 by Sebastian Bunn MD at [facility] 04/24/2022 5260-5-050 / 0 / [id number] Screw Osteolock 3.[address] SCREW Right: Hip Hamlin Cancellous 50mm Donal Ref#[id number] Implanted: Qty: 2 on 09/18/2017 by Sebastian Bunn MD at [facility] 06/01/2022 5260-5-020 / 0 / [id number] Screw Ostelock 3.[address] SCREW Right: Hip [place]lin Cancellous 20mm Donal Ref#[id number] Implanted: Qty: 1 on 09/18/2017 by Sebastian Bunn MD at [facility] 06/01/2022 5260-5-016 / 0 / [id number] Screw Osteolock 3.[address] SCREW Right: Hip Hamlin Cancellous 18mm Hamlin Ref#[id number] Implanted: Qty: 1 on 09/18/2017 by Sebastian Bunn MD at [facility] 01/02/2022 [id number] / 0 / [id number] Shell, Donal Tritanium Revision Shell Right: Hip Donal Acetabular #[id number] - S0 Implanted: Qty: 1 on 09/18/2017 by Sebastian Bunn MD at [facility] documented as of this encounter Results [...] Plan / Dates Group Medicare Adv O [facility] [id number] 2018- MANAGED MEDICARE HEALTHCARE Present DUAL COMPLETE O Medicaid [facility] MEDICAID xxxxxxxxx 2019-P [phone] P O [facility] [address] [place] [address] documented as of this encounter Advance Directives Patient Segment Assembler Explanation Type Date Recorded 0 Advance Directives 08/08/2013 8:00 AM and Living Will Power of Rough Rice Tender 08/08/2013 8:00 AM
[2019-12-13 16:54] LABS: BASOPHILS # (AUTO) 0.1 (0.0-0.1); BASOPHILS % 0.6 % (0.0-1.0); EOSINOPHILS # (AUTO) 0.3 (0.0-0.4); EOSINOPHILS % 3.2 % (0.0-6.0); HEMATOCRIT 39.7 % (34.2-44.1); HEMOGLOBIN 13.4 g/dL (12.0-16.0); LYMPHOCYTES # (AUTO) 2.8 (1.0-3.2); LYMPHOCYTES % 33.1 % (18.0-39.1); MEAN CORPUSCULAR HEMOGLOBIN 33.9 pg (28-32); MEAN CORPUSCULAR HGB CONC 33.8 g/dL (31-35); MEAN CORPUSCULAR VOLUME 100.5 fL (81-99); MONOCYTES # (AUTO) 0.7 (0.2-0.8); MONOCYTES % 7.8 % (4.4-11.3); NEUTROPHILS # (AUTO) 4.6 (2.1-6.9); NEUTROPHILS % 54.9 % (38.7-80.0); PLATELET COUNT 339 x10e3/uL (140-360); RED BLOOD COUNT 3.95 x10e6/uL (3.6-5.1); RED CELL DISTRIBUTION WIDTH 13.3 % (11.7-14.4)
[2019-12-13 17:05] LABS: BILIRUBIN,URINE NEGATIVE (NEGATIVE); CLARITY,URINE HAZY (CLEAR); COLOR,URINE YELLOW (YELLOW); KETONES,URINE NEGATIVE (NEGATIVE); LEUKOCYTE ESTERASE ,URINE NEGATIVE (NEGATIVE); NITRITE,URINE NEGATIVE (NEGATIVE); PROTEIN,URINE DIPSTICK NEGATIVE (NEGATIVE); URINE UROBILINOGEN 0.2 mg/dL (0.2 - 1)
[2019-12-13 17:14] LABS: AMORPHOUS SEDIMENT,URINE FEW (FEW); AMPHETAMINES SCREEN,URINE NEGATIVE (NEGATIVE); BACTERIA,URINE MODERATE /HPF; BENZODIAZEPINES SCREEN,URINE NEGATIVE (NEGATIVE); EPITHELIAL CELLS,URINE MODERATE /LPF; MUCUS,URINE FEW (RARE); PHENCYCLIDINE SCREEN,URINE NEGATIVE (NEGATIVE)
[2019-12-13 17:22] LABS: ALANINE AMINOTRANSFERASE 11 IU/L (0-55); ALKALINE PHOSPHATASE 89 IU/L (40-150); ANION GAP 14.6 mmol/L (8-16); BLOOD UREA NITROGEN 10 mg/dL (7-26); BUN/CREATININE RATIO 13 (6-25); CALCIUM 9.9 mg/dL (8.4-10.2); CARBON DIOXIDE 23 mmol/L (22-29); CHLORIDE 105 mmol/L (98-107); CREATINE KINASE 187 IU/L (29-168); CREATININE, SERUM 0.78 mg/dL (0.57-1.11); EST GLOMERULAR FILTRATION RATE > 60 ML/MIN (60-); GLUCOSE 88 mg/dL (74-118); POTASSIUM 3.6 mmol/L (3.5-5.1); SODIUM 139 mmol/L (136-145)
[2019-12-13 18:10] LABS: SALICYLATE < 5.0 mg/dL (0-30)
[2019-12-13 18:41] LABS: THYROID STIMULATING HORMONE 1.283 uIU/mL (0.350-4.940)
--- NOTE | 2019-12-13 18:44 | Emergency Department Note ---
History of Present Illnes History of Present Illness Chief Complaint: Psychiatric History of Present Illness This is a 54 year old female PATIENT IN FROM HOME WITH COMPLAINTS OF "I CAN'T TAKE IT ANYMORE, I DON'T WANT TO LIVE" PATIENT STATES SHE IS ON MULTIPLE MEDICATIONS AND ANTIBIOTICS AND SHE "DOESN'T WANT TO LIVE" STATES "YOU CAN'T TAKE ALL THESE MEDICATIONS AND NOT BE CRAZY". PATIENT TEARFUL IN TRIAGE AND STATES THAT "I JUST NEED SOME HELP". PATIENT DENIES A PLAN. PATIENT ALERT AND ORIENTED, RESP EVEN AND NONLABORED, AMBULATORY WITHOUT ASSISTANCE. Historian: Patient Arrival Mode: Car Dowel Pointer Required: No Onset (how long ago): day(s) Radiation: non-radiation Severity: moderate Onset quality: gradual Duration (how long): week(s) Timing of current episode: constant Progression: worsening Chronicity: chronic Context: recent illness Relieving factors: none Exacerbating factors: none Associated symptoms: denies other symptoms Treatments prior to arrival: none (MARLYN HAMILTON MD) Past Medical/Family History Physician Review I have reviewed the patient's past medical and family history. Any updates have been documented here. (MARLYN HAMILTON MD) Past Medical History Recent Fever: No Clinical Suspicion of Infectio: No New/Unexplained Change in Ment: No Past Medical History: Hypertension, Anxiety, Depression, Other Mental Illness, GERD, Hyperlipedemia, Osteoarthritis Other Medical History: RHEUMATOID ARTHRITIS LUNG DISEASE - MAC ANKYLOSING SPONDYLITIS Past Surgical History: Hip Replacement Other Surgery: CARPAL TUNNEL SURGERY (MARLYN HAMILTON MD) Social History Smoking Cessation: Current every day smoker Counseling Performed: Yes Alcohol Use: Social Any Illegal Drug Use: Yes (MARIJUANA) TB Exposure/Symptoms: No Physically hurt or threatened: No (MARLYN HAMILTON MD) Family History Family history of heart diseas: No (MARLYN HAMILTON MD) Other Last Tetanus: UNKNOWN Any Pre-Existing Lines (PICC,: No Is patient up to date on immun: Yes Last Flu: OOD Last Pneumovax: NA (MARLYN HAMILTON MD) Review of Systems Review of Systems Constitutional: no symptoms EENTM: no symptoms Cardiovascular: no symptoms Respiratory: no symptoms Gastrointestinal: no symptoms Genitourinary: no symptoms Musculoskeletal: other (CHRONIC PAIN) Neurological: no symptoms Psychological: as per HPI, depressed, emotional problems, other (SUICIDAL THOUGHTS, NO PLAN) Endocrine: no symptoms Hematological/Lymphatic: no symptoms Review of other systems All other systems reviewed and negative. (MARLYN HAMILTON MD) Physical Exam Related Data Allergies: Coded Allergies: Sulfa (Sulfonamide Antibiotics) (Verified Allergy, Mild, HIVES, 12/13/19) aspirin (Verified Allergy, Mild, HIVES, 12/13/19) Triage Vital Signs Vital Signs Date Time Temp Pulse Resp B/P (MAP) Pulse Ox O2 Delivery O2 Flow Rate FiO2 12/13/19 15:26 99.8 105 20 120/82 99 (MARLYN HAMILTON MD) Physical Exam CONSTITUTIONAL Constitutional: well-developed, well-nourished HENT HENT: normocephalic, atraumatic, oropharynx clear/moist, nose normal HENT L/R: left ext ear normal, right ext ear normal EYES Eyes: PERRL, conjunctivae normal NECK Neck: ROM normal PULMONARY Pulmonary: effort normal, breath sounds normal CARDIOVASCULAR Cardiovascular: regular rhythm, heart sounds normal, capillary refill normal, normal rate GASTROINTESTINAL Abdominal: soft, nontender, bowel sounds normal GENITOURINARY Genitourinary: exam deferred SKIN Skin: warm, dry MUSCULOSKELETAL Musculoskeletal: ROM normal NEUROLOGICAL Neurological: alert, oriented x 3, no gross motor or sensory deficits PSYCHOLOGICAL Psychological: judgement normal, other (POSITIVE SI, NO PLAN) (MARLYN HAMILTON MD) Results Laboratory Result Diagram: 12/13/19 1618 12/13/19 1618 Laboratory Laboratory Tests Test 12/13/19 16:18 12/13/19 15:44 White Blood Count 8.45 x10e3/uL (4.8-10.8) Red Blood Count 3.95 x10e6/uL (3.6-5.1) Hemoglobin 13.4 g/dL (12.0-16.0) Hematocrit 39.7 % (34.2-44.1) Mean Corpuscular Volume 100.5 fL (81-99) Mean Corpuscular Hemoglobin 33.9 pg (28-32) Mean Corpuscular Hemoglobin Concent 33.8 g/dL (31-35) Red Cell Distribution Width 13.3 % (11.7-14.4) Platelet Count 339 x10e3/uL (140-360) Neutrophils (%) (Auto) 54.9 % (38.7-80.0) Lymphocytes (%) (Auto) 33.1 % (18.0-39.1) Monocytes (%) (Auto) 7.8 % (4.4-11.3) Eosinophils (%) (Auto) 3.2 % (0.0-6.0) Basophils (%) (Auto) 0.6 % (0.0-1.0) Neutrophils # (Auto) 4.6 (2.1-6.9) Lymphocytes # (Auto) 2.8 (1.0-3.2) Monocytes # (Auto) 0.7 (0.2-0.8) Eosinophils # (Auto) 0.3 (0.0-0.4) Basophils # (Auto) 0.1 (0.0-0.1) Absolute Immature Granulocyte (auto 0.03 x10e3/uL (0-0.1) Sodium Level 139 mmol/L (136-145) Potassium Level 3.6 mmol/L (3.5-5.1) Chloride Level 105 mmol/L (98-107) Carbon Dioxide Level 23 mmol/L (22-29) Anion Gap 14.6 mmol/L (8-16) Blood Urea Nitrogen 10 mg/dL (7-26) Creatinine 0.78 mg/dL (0.57-1.11) Estimat Glomerular Filtration Rate > 60 ML/MIN (60-) BUN/Creatinine Ratio 13 (6-25) Glucose Level 88 mg/dL (74-118) Calcium Level 9.9 mg/dL (8.4-10.2) Total Bilirubin 0.4 mg/dL (0.2-1.2) Aspartate Amino Transf (AST/SGOT) 17 IU/L (5-34) Alanine Aminotransferase (ALT/SGPT) 11 IU/L (0-55) Alkaline Phosphatase 89 IU/L (40-150) Creatine Kinase 187 IU/L (29-168) Creatine Kinase MB 2.60 ng/mL (0-5.0) Troponin I < 0.001 ng/mL (0-0.300) Total Protein 8.1 g/dL (6.5-8.1) Albumin 4.0 g/dL (3.5-5.0) Globulin 4.1 g/dL (2.3-3.5) Albumin/Globulin Ratio 1.0 (0.8-2.0) Salicylates Level < 5.0 mg/dL (0-30) Acetaminophen Level < 3.0 ug/mL (10-30) Ethyl Alcohol Level < 10.0 mg/dL (0.0-10.0) Urine Color Yellow (YELLOW) Urine Clarity Hazy (CLEAR) Urine pH 5.5 (5 - 7) Urine Specific Burnham 1.025 (1.010-1.025) Urine Protein Negative (NEGATIVE) Urine Glucose (UA) Negative (NEGATIVE) Urine Ketones Negative (NEGATIVE) Urine Blood Moderate (NEGATIVE) Urine Nitrite Negative (NEGATIVE) Urine Bilirubin Negative (NEGATIVE) Urine Urobilinogen 0.2 mg/dL (0.2 - 1) Urine Leukocyte Esterase Negative (NEGATIVE) Urine RBC 6-10 /HPF (0-5) Urine WBC 6-10 /HPF (0-5) Urine Epithelial Cells Moderate /LPF (NONE) Urine Amorphous Sediment Few (FEW) Urine Bacteria Moderate /HPF (NONE) Urine Mucus Few (RARE) Urine Opiates Screen Negative (NEGATIVE) Urine Methadone Screen Negative (NEGATIVE) Urine Barbiturates Screen Negative (NEGATIVE) Urine Phencyclidine Screen Negative (NEGATIVE) Urine Amphetamines Screen Negative (NEGATIVE) Urine Methamphetamines Screen Negative (NEGATIVE) Urine Benzodiazepines Screen Negative (NEGATIVE) Urine Cocaine Screen Negative (NEGATIVE) Urine Cannabinoids Screen Negative (NEGATIVE) Lab results reviewed: Yes (MARLYN HAMILTON MD) Procedures 12 Lead ECG Interpretation Dowel Pointer: Interpreted by ED physician Date: Dec 13, 2019 Time: 16:07 Rhythm: sinus rhythm Rate: normal QRS axis: normal ST segments normal: Yes T waves normal: Yes Clinical Impression: normal ECG (MARLYN HAMILTON MD) Critical Care Time Subsequent provider I assumed direction of critical care for this patient from another provider of my specialty. (MARLYN HAMILTON MD) Assessment & Plan Reassessment Reassessment SUICIDAL IDEATION, DEPRESSION, NO PLAN - CHECK CBC, CHEM'S, ECG, UDS, ACETAMINOPHEN LEVEL (TAKES NORCO), ETHANOL, SALICYLATES - R/O DRUG INGESTION, MDD, ELECTROLYTE ABNL. MAT TEAM CALLED TO EVALUATE PT (MARLYN HAMILTON MD) Assessment & Plan Final Impression: (1) Depression Assessment & Plan CHECKED OUT TO DR REY PENDING DISPO PER MAT TEAM (MARLYN HAMILTON MD) Assessment & Plan MAT team is evaluating patient. Patient with bipolar disorder and currently depressed phase. Patient has depression. Patient is not suicidal at this time. MAT team is recommending outpatient treatment and is giving patient resources for said treatment (ARTURO REY MD) Depart Disposition: HOME, SELF-CARE Last Vital Signs Date Time Temp Pulse Resp B/P (MAP) Pulse Ox O2 Delivery O2 Flow Rate FiO2 12/13/19 15:26 99.8 105 20 120/82 99 (MARLYN HAMILTON MD) MARLYN HAMILTON MD Dec 13, 2019 18:44 ARTURO REY MD Dec 13, 2019 20:32
[2019-12-13 18:56] LABS: INR 0.87; PROTHROMBIN TIME 12.3 seconds (11.9-14.5)
[2019-12-13 18:57] LABS: PARTIAL THROMBOPLASTIN TIME 34.9 seconds (23.8-35.5)
--- NOTE | 2019-12-13 19:05 | NUR ---
MAT team assessing patient at this time.
--- NOTE | 2019-12-13 20:06 | NUR ---
MAT team finished assessing patient at this time.
== END 2019-12-13 21:02 | disposition home or self-care (01) ==
LOC: ER 15:23
DX: R45.851 Suicidal ideations (principal); F32.9 Major depressive disorder, single episode, unspecified; F31.9 Bipolar disorder, unspecified
CPT/HCPCS: 36415; 80053; 80307; 80320; 80329; 81001; 82550; 82553; 84443; 84484; 85025; 85610; 85730; 87086; 93005; 99283

== ENCOUNTER 2021-02-11 20:39 | Emergency (ER) | payer MEDICARE ==
[~2021-02-11] VITALS: Ht 165.1 cm; Wt 83.0 kg
[2021-02-11 21:43] LABS: CLARITY,URINE CLEAR (CLEAR); COLOR,URINE YELLOW (YELLOW); KETONES,URINE NEGATIVE (NEGATIVE); LEUKOCYTE ESTERASE ,URINE NEGATIVE (NEGATIVE); NITRITE,URINE NEGATIVE (NEGATIVE); PROTEIN,URINE DIPSTICK NEGATIVE (NEGATIVE); URINE UROBILINOGEN 0.2 mg/dL (0.2 - 1)
[2021-02-11 21:51] LABS: BACTERIA,URINE FEW /HPF; EPITHELIAL CELLS,URINE RARE /LPF; WBC,URINE (MAN) 0-5 /HPF (0-5)
== END 2021-02-11 21:45 | disposition home or self-care (01) ==
LOC: ER 21:06
DX: N76.0 Acute vaginitis (principal); I10 Essential (primary) hypertension; E78.5 Hyperlipidemia, unspecified; F41.8 Other specified anxiety disorders; M06.9 Rheumatoid arthritis, unspecified
CPT/HCPCS: 81001; 99283

== ENCOUNTER 2021-12-05 19:04 | Emergency (ER) | payer MEDICARE ==
[~2021-12-05] VITALS: Ht 165.1 cm; Wt 79.4 kg
[2021-12-05] MEDS ORDERED: FAMOTIDINE 20 MG/2 ML VIAL IV STA (21:27)
[2021-12-05] MEDS ORDERED: ONDANSETRON HCL INJ 2MG/ML 2ML 2 MG/ML VIAL IV STA (21:27)
[2021-12-05] MEDS ORDERED: SODIUM CHLORIDE 0.9% 1000ML 1,000 ML IV SCH (21:30)
[2021-12-05] MEDS ORDERED: ONDANSETRON HCL INJ 2MG/ML 2ML 2 MG/ML VIAL ONE (21:40)
[2021-12-05] MEDS ORDERED: SODIUM CHLORIDE 0.9% 1000ML 1,000 ML ONE (21:40)
[2021-12-05] MEDS ORDERED: FAMOTIDINE 20 MG/2 ML VIAL IV ONE (21:40)
== END 2021-12-05 23:35 | disposition home or self-care (01) ==
LOC: FSED 20:15
DX: R11.2 Nausea with vomiting, unspecified (principal); K21.9 Gastro-esophageal reflux disease without esophagitis; M54.9 Dorsalgia, unspecified; G89.29 Other chronic pain; I10 Essential (primary) hypertension; E78.5 Hyperlipidemia, unspecified; M06.9 Rheumatoid arthritis, unspecified; F41.9 Anxiety disorder, unspecified
CPT/HCPCS: 80053; 80307; 81003; 85025; 99283; J2405; J7030

== ENCOUNTER 2021-12-14 19:05 | Emergency (ER) | payer MEDICARE ==
[~2021-12-14] VITALS: Ht 165.1 cm; Wt 80.3 kg
[2021-12-14 20:28] VITALS: BP 126/68
== END 2021-12-14 20:28 | disposition left against medical advice (07) ==
LOC: FSED 19:39
DX: N94.9 Unspecified condition associated with female genital organs and menstrual cycle (principal); M45.9 Ankylosing spondylitis of unspecified sites in spine
CPT/HCPCS: 81003

== ENCOUNTER → 2022-03-31 | Outpatient (CLI) | payer MEDICARE ==
[~2022-03-31] MED LIST: DIATRIZOATE MEGL/DIATRIZOA SOD 30 ML BTL PO ONE; IOPAMIDOL 370 MG/ML 100 ML INFUS..BTL INJ ONE
== END ==
LOC: CT 09:04
PROVIDERS: ATTEND Urology
DX: N32.2 Vesical fistula, not elsewhere classified (principal); N39.0 Urinary tract infection, site not specified
CPT/HCPCS: 74177; Q9963; Q9967